=== PATIENT | male | born 1940 | race Caucasian/White ===

== ENCOUNTER 2020-04-16 13:52 | Outpatient (REF) | payer MEDICARE, SELFPAY ==
--- NOTE | 2020-04-16 | CT_ITS ---
EXAMINATION: CT RIGHT LOWER EXTREMITY CLINICAL INFORMATION: Pain right lower leg, swelling, question mass. COMPARISON: MRI 04/02/2020. TECHNIQUE: Axial imaging. Sagittal and coronal reconstructions. 85 mL Omnipaque 350. FINDINGS: Cystic focus in the posterior medial aspect of the knee, with internal septations. Hounsfield measurements 8. This measures approximately 4.4 cm craniocaudal, 3.4 cm AP, 2.3 cm transverse. There is peripheral enhancement present. This is present in the soft tissues along the medial aspect of the knee, including tracking along the pes anserine tendons. This is also visualized on the previous MRI. Differential considerations include bursitis. Infectious inflammatory processes can be considered in the appropriate clinical circumstance. There is a small Abraham's cyst. No definite communication between the Abraham's cyst and the above-mentioned cystic focus is identified. There is a complex focus in the subcutaneous tissues anterior to the distal patella and the proximal patellar tendon, measuring 3.8 cm craniocaudal, 3.6 cm transverse, 1.6 cm AP. Foci of increased attenuation in this region, could reflect calcifications, and potential areas of enhancement. Synovial recess along the posterior lateral aspect of the knee. No additional fluid collection or mass is identified. No acute osseous abnormality. Mild medial compartment arthritis. There is a small knee joint effusion, with some synovial thickening. IMPRESSION: 1. A 4.4 x 3.4 x 2.3 cm septated cystic focus in the posterior medial aspect of the knee, tracking along the pes anserine tendons. Differential considerations include bursitis; infectious inflammatory process can be considered in the appropriate clinical circumstance. 2. Complex focus in the anterior subcutaneous tissues, anterior to the distal patella and the proximal patellar tendon measuring 3.8 x 3.6 x 1.6 cm. This was also characterized on the previous MRI. Differential considerations include bursitis, hematoma, inflammatory or infectious process. 3. Small Abraham's cyst. 4. Additional findings and details as above.
[2020-04-16] MEDS: iohexoL 350 MG/ML 100 ML INFUS..BTL IV (15:17)
== END 2020-04-16 13:53 | disposition home or self-care (01) ==
LOC: HO.CT 13:52
PROVIDERS: PCP Internal Medicine; Visit Provider Physician Assistant Medical
DX: M25.561 Pain in right knee (principal); M25.461 Effusion, right knee
CPT/HCPCS: 73701

== ENCOUNTER → 2020-04-19 08:40 | Outpatient (BNVA) | payer MEDICARE, SELFPAY | PROVIDERS: PCP Internal Medicine; Visit Provider Orthopaedic Surgery | DX: M25.461 Effusion, right knee (principal) | CPT/HCPCS: 99211; 99213 ==

== ENCOUNTER → 2020-04-29 09:01 | Outpatient (BNVA) | payer MEDICARE, SELFPAY | PROVIDERS: PCP Internal Medicine; Referring Provider Internal Medicine; Visit Provider Orthopaedic Surgery | DX: M70.51 Other bursitis of knee, right knee (principal); M17.11 Unilateral primary osteoarthritis, right knee | CPT/HCPCS: 20610; 99214 ==

== ENCOUNTER → 2020-06-07 08:47 | Outpatient (BNVA) | payer MEDICARE, SELFPAY | PROVIDERS: Visit Provider Orthopaedic Surgery | DX: M75.51 Bursitis of right shoulder (principal); M17.11 Unilateral primary osteoarthritis, right knee; S83.241A Other tear of medial meniscus, current injury, right knee, initial encounter; M70.51 Other bursitis of knee, right knee | CPT/HCPCS: 20610; 99212; J1100 ==

== ENCOUNTER 2020-06-22 08:36 | Outpatient (REF) | payer MEDICARE, SELFPAY ==
[2020-06-22 14:24] LABS: Urine Cytology See Pathology rpt
== END 2020-06-22 08:37 | disposition home or self-care (01) ==
LOC: HO.LNP 08:36
PROVIDERS: Visit Provider Urology
DX: R31.29 Other microscopic hematuria (principal); N40.2 Nodular prostate without lower urinary tract symptoms; N32.0 Bladder-neck obstruction
CPT/HCPCS: 81002; 88112; 99212

== ENCOUNTER 2020-06-28 10:00 | Outpatient (RCR) | payer MEDICARE, SELFPAY ==
--- NOTE | 2020-05-07 08:35 | MHC.PT.EP ---
[facility] [place] [facility] [place] [facility] [place] [facility] [address] [phone] F: [phone] F: [phone] F: [phone] F: [phone] Physical Therapy Plan of Care Date of Evaluation: 05/06/20 Date of Surgery: N/A Diagnosis: R knee pain/bursitis Assessment: Patient is a 79 year old R handed male who presents with s/s consistent with R knee bursitis. He is retired but does enjoy being independent. Patient past medical history includes VT. Current impairments include pain, ROM, strength, safety, independence, balance, activity tolerance and functional mobility. Functional limitations include decreased ability to walk, stand, transfer, negotiate stairs, and perform weight bearing activities.. Patient is motivated with good rehab potential. Skilled PT will address impairments and functional limitations in order to achieve goals. Frequency and Duration: The patient will be seen 2x/week for 6 weeks Short Term Goals: I with HEP - 2 week AROM 5-120 - 3 weeks Able to walk 20 minutes without increased pain - 3 weeks [employer] Goals: Able to walk 30 minutes without increased pain - 5 weeks LEFS 56/80 - 6 weeks Strength 4/5 grossly in LE, AROM 2-126 - 6 weeks Treatment Plan: Modalities to reduce pain, spasms and effusion. Manual therapy to restore motion and function. Therapeutic exercise to improve strength and flexibility. Neuromuscular re-education for posture and balance. Therapeutic activities to return to functional activities of daily living. Please sign and return to therapist. Thank you for your referral.
--- NOTE | 2020-07-29 09:39 | MHC.PT.DC ---
[facility] [place] Office [place] Office [place] Office [address] Don Pichardo [address] [phone] F: [phone] F: [phone] F: [phone] F: [phone] Physical Therapy Discharge Report Diagnosis: R knee pain/bursitis Date of Surgery: N/A Date of Evaluation: 05/06/20 Date of Discharge: 07/29/20 Treatments to Date: 13 Cancellations to Date: No Shows to Date: Discharge Status: Independent with HEP Discharge Summary: Pt progressed well over the course of skilled PT making progress on impairments and functional limitations resulting in an improved quality of life. Pt is I with HEP and appropriate to d/c to HEP at this time. He will pursue PT for his L knee at this time. Electronically signed by: Wing Bell, PT Please sign and return to therapist. Thank you for your referral.
== END 2020-07-29 09:39 | disposition home or self-care (01) ==
LOC: HO.PTCHIC 10:00
PROVIDERS: PCP Internal Medicine; Visit Provider Orthopaedic Surgery
DX: M70.51 Other bursitis of knee, right knee (principal)
CPT/HCPCS: 97110; 97112; 97140; 97161

== ENCOUNTER → 2020-07-05 09:26 | Outpatient (BNVA) | payer MEDICARE, SELFPAY | PROVIDERS: PCP Internal Medicine; Visit Provider Orthopaedic Surgery | DX: Z76.89 Persons encountering health services in other specified circumstances (principal) | CPT/HCPCS: 20610; 99212; J1100 ==

== ENCOUNTER 2020-07-05 11:15 | Inpatient (IN) | payer MEDICARE, SELFPAY ==
[2020-07-05] VITALS (11 sets, daily range): BP systolic 108–141; BP diastolic 59–75; PULSE 70–95; RESP 18–20; TEMP 35.7–37.1; O2SAT 92–96; BMI 25.9
--- NOTE | 2020-07-05 11:34 | ECG_ITS ---
Test Reason : SYNCOPE Blood Pressure : / mmHG Vent. 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
--- NOTE | 2020-07-05 11:35 | XR_ITS ---
EXAMINATION: XR CHEST CLINICAL INFORMATION: Syncope COMPARISON: Chest radiographs 04/17/2018, 03/24/2018 TECHNIQUE: Portable upright AP view of the chest was obtained. FINDINGS: The lungs are clear. There is no airspace opacity or focal ground-glass opacity. The heart is normal in size. The vascularity is normal. The costophrenic sulci are clear. The hilar and mediastinal contours and bony structures are unremarkable. XR/XR chest 1V IMPRESSION: Unremarkable examination.
--- NOTE | 2020-07-05 11:36 | ED_ITS ---
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(s) Description of event: other (felt lightheaded and woozy, vision became dark and he had event while sitting in car, no trauma) Prodromal symptoms: vision changes and lightheaded Witnessed: Yes - by Bystander Context: at rest Injuries sustained associated with event: none Current symptoms: back to baseline History: previous syncopal episode Treatments prior to arrival: none Related Data Home Medications Medication Instructions Recorded Confirmed allopurinol 100 mg tablet 100 mg PO DAILY 04/12/20 07/05/20 atorvastatin 40 mg tablet 40 mg PO BEDTIME 04/12/20 07/05/20 carvedilol 6.25 mg tablet 6.25 mg PO BID 04/12/20 07/05/20 fluticasone 250 mcg-salmeterol 50 1 inh INHALATION BID 04/12/20 07/05/20 mcg/dose blistr powdr for inhalation sacubitril 49 mg-valsartan 51 mg 1 tab PO BID 04/12/20 07/05/20 tablet tamsulosin 0.4 mg capsule 0.4 mg PO BEDTIME 04/12/20 07/05/20 cetirizine 10 mg PO DAILY PRN 07/05/20 07/05/20 finasteride 5 mg PO BEDTIME 07/05/20 07/05/20 multivitamin 1 tab PO DAILY 07/05/20 07/05/20 Previous Rx's Medication Instructions Recorded celecoxib 200 mg capsule 200 mg PO DAILY 30 Days #30 cap 07/05/20 Allergies Allergy/AdvReac Type Severity Reaction Status Date / Time No Known Allergies Allergy Verified 06/07/20 10:55 [No Known Allergies*] Review of Systems Review of Systems: Constitutional : No Weight loss, No Fever, No Chills, No Fatigue, No Malaise ENT/Mouth : No sore throat, No Rhinorrhea Eyes: No Eye Pain, No Swelling, No Redness Cardiovascular : No Chest Pain, No SOB, No Dyspnea on Exertion, No Orthopnea, No Edema, No Palpitations Respiratory : No Cough, No Sputum, No Wheezing Gastrointestinal : No Nausea, No Vomiting, No Diarrhea, No Constipation, No abdominal Pain, No Hematochezia, No Melena Genitourinary : No Dysuria, No Urinary Frequency, No Hematuria, Musculoskeletal : pos joint pain, No Myalgias, pos Joint Swelling Skin : No Skin Lesions, No rash Neuro : No Weakness, No Numbness, No Dizziness, No Headache, pos fainting Psych : No Anxiety/Panic, No Depression Heme/Lymph: No Bruising, No Bleeding,No Lymphadenopathy Endocrine : No Polyuria, No Polydipsia All other systems reviewed and are negative COUNT INCLUDES THE [facility] Past Medical History Attestation statement: The following information was validated with the patient. Medical History Bursitis of right shoulder Effusion, left knee Effusion, right knee Medial meniscus tear Osteoarthritis of right knee Pes anserinus bursitis of right knee Surgical History History of carpal tunnel release History of cholecystectomy History of colonoscopy History of tonsillectomy Family History Family History Father No problems noted. Mother No problems noted. Son No problems noted. Social History Social History Alcohol intake: never Smoking Status: Never smoker Smoked in Last 30 Days: No Use of substances other than those prescribed or required for medical reasons: No Advance Directives: No Advance Directives Information Provided: No Current occupational status: retired 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 Physical Exam Vital Signs: Vital Signs: Last Vital Signs Temp 98.7 F 07/05/20 11:33 Pulse 77 07/05/20 11:33 Resp 18 07/05/20 11:33 BP 108/59 L 07/05/20 11:33 Pulse Ox 96 07/05/20 12:01 Body Mass Index 25.9 Appearance: Alert. Oriented X3. No acute distress. Eyes: Pupils equal, round and reactive to light. ENT: Pharynx normal. Neck: Normal inspection. Neck supple. CVS: Normal heart rate and rhythm. Pulses normal. Respiratory: No respiratory distress. Breath sounds normal. Abdomen: Soft and nontender. Skin: Skin warm and dry. Normal skin color. Normal skin turgor. Extremities: No lower extremity edema. No calf ttp L knee residual small effusion noted with bandage overlying lateral aspect Neuro: Oriented X 3. No motor deficit. No sensory deficit. Course Course Course Narrative: 500 cc of NS ordered, labs off, planned admit MDM - Syncope MDM Narrative Medical decision making narrative: 79 yo male with arthritis hx of recurrent bouts of hypotension without reported known cause that resolved after med changes - he currently comes in with c/o brief syncopal episode with a prodrome, recently not sleeping well due to L knee arthritis just had arthrocentesis with orthopedics, has no trauma from syncope, no CP/SOB to suggest PE or ACS, will need labs, ortho VS, EKG, likely admit for observation Lab Data Result diagrams: 07/05/20 11:52 07/05/20 11:52 Labs: Lab Results 07/05/20 07/05/20 07/05/20 Range/Units 11:52 11:52 11:52 WBC 10.0 (4.8-10.8) X10*3/uL RBC 4.05 L (4.60-5.80) X10*6/uL Hgb 12.0 L (14.0-18.0) g/dl Hct 35.9 L (42-52) % MCV 88.6 (80-98) fL MCH 29.6 (27.0-33.0) pg MCHC 33.4 (31.0-36.0) g/dl RDW 14.0 (11.0-16.0) % Plt Count 382 (160-400) X10*3/uL MPV 8.2 L (9.4-12.4) fL PT 13.0 (10.8-13.0) SEC INR 1.1 (0.9-1.1) APTT 33.4 (24.1-38.0) SEC Sodium 126 L (135-145) mmol/L Potassium 5.3 H (3.3-5.1) mmol/l Chloride 94 L (96-108) mmol/L Carbon Dioxide 26 (22-29) mmol/L Anion Gap 11 L (12-20) BUN 15 (9-16) mg/dL Creatinine 0.76 (0.5-1.4) mg/dL Estim Creat Clear Calc 71.1 Estimated GFR > 60 Random Glucose 176 H (60-115) mg/dL Calcium 8.5 (8.4-10.2) mg/dL COVID-19 ([facility]) (Negative) COVID-19 Clin Com 07/05/20 Range/Units 11:53 WBC (4.8-10.8) X10*3/uL RBC (4.60-5.80) X10*6/uL Hgb (14.0-18.0) g/dl Hct (42-52) % MCV (80-98) fL MCH (27.0-33.0) pg MCHC (31.0-36.0) g/dl RDW (11.0-16.0) % Plt Count (160-400) X10*3/uL MPV (9.4-12.4) fL PT (10.8-13.0) SEC INR (0.9-1.1) APTT (24.1-38.0) SEC Sodium (135-145) mmol/L Potassium (3.3-5.1) mmol/l Chloride (96-108) mmol/L Carbon Dioxide (22-29) mmol/L Anion Gap (12-20) BUN (9-16) mg/dL Creatinine (0.5-1.4) mg/dL Estim Creat Clear Calc Estimated GFR Random Glucose (60-115) mg/dL Calcium (8.4-10.2) mg/dL COVID-19 ([facility]) Negative (Negative) COVID-19 Clin Com See Note ECG Data Attestation: I personally reviewed and interpreted this ECG as follows: ECG interpretation date: 07/05/20 ECG interpretation time: 12:10 Interpretation: Rate: 76 Rhythm: NSR Kingsley: left Normal P waves. 1st degree AVB Normal QRS complex. poor R wave progression ST T wave : normal qTC: normal prior studies: no acute ischemia The study has been interpreted contemporaneously by me. . Discharge Plan Discharge Clinical Impression: Syncope, Acute hyponatremia Patient Disposition: Admitted As Inpatient Prescriptions: No Action multivitamin Tablet 1 tab PO DAILY RF: 0 cetirizine 10 mg Tablet 10 mg PO DAILY PRN (Reason: Allergic Symptoms) RF: 0 finasteride 5 mg tablet 5 mg PO BEDTIME RF: 0 fluticasone propion-salmeterol [Advair Diskus] 250-50 mcg/dose blister with device 1 inh inhalation BID RF: 0 Entresto 49-51 mg tablet 1 tab PO BID RF: 0 atorvastatin 40 mg tablet 40 mg PO BEDTIME RF: 0 allopurinol 100 mg tablet 100 mg PO DAILY RF: 0 carvedilol 6.25 mg tablet 6.25 mg PO BID RF: 0 tamsulosin 0.4 mg capsule 0.4 mg PO BEDTIME RF: 0 celecoxib [Celebrex] 200 mg capsule 200 mg PO DAILY 30 Days Qty: 30 RF: 0
[2020-07-05 12:01] LABS: Basophils Percent Auto 0.3 % (0-2); Eosinophils Percent Auto 0.4 % (0-4); Hematocrit 35.9 % (42-52); Imm Gran Abs Auto 0.05 X10*3/uL (0.00-0.03); Imm Gran Pct Auto 0.5 % (0.0-0.4); Lymphocytes Absolute Auto 0.6 X10*3/uL (1.2-4.9); Lymphocytes Percent Auto 6.3 % (20-40); MANUAL DIFF FLAG SCAN; Mean Corpuscular HGB Conc 33.4 g/dl (31.0-36.0); Mean Corpuscular Hemoglobin 29.6 pg (27.0-33.0); Mean Corpuscular Volume 88.6 fL (80-98); Mean Platelet Volume 8.2 fL (9.4-12.4); Monocytes Absolute Auto 0.6 X10*3/uL (0.1-1.2); Monocytes Percent Auto 5.5 % (2-11); Neutrophils Absolute Auto 8.7 X10*3/uL (2.0-8.3); Platelet Count 382 X10*3/uL (160-400); SCAN SMEAR FLAG 1
[2020-07-05 12:06] LABS: INTERNATIONAL NORM RATIO 1.1 (0.9-1.1)
[2020-07-05 12:09] LABS: Partial Thromboplastin Time 33.4 SEC (24.1-38.0)
[2020-07-05 12:17] LABS: COVID-19 Test Negative (Negative)
[2020-07-05 12:17] LABS: Red Blood Count 4.05 X10*6/uL (4.60-5.80)
[2020-07-05 12:22] LABS: Anion Gap 11 (12-20); Blood Urea Nitrogen 15 mg/dL (9-16); Calcium 8.5 mg/dL (8.4-10.2); Carbon Dioxide 26 mmol/L (22-29); Chloride 94 mmol/L (96-108); Creatinine Clr Calc Pharmacy 71.1; Estimated Glomerular Filt Rate > 60; Glucose Random 176 mg/dL (60-115); Potassium 5.3 mmol/l (3.3-5.1); Sodium 126 mmol/L (135-145)
[2020-07-05 12:28] LABS: SLIDE REVIEW VERIFIED
[2020-07-05 12:28] LABS: Troponin-I High Sensitivity < 3.5 ng/L (<3.5-35.0)
[2020-07-05] MEDS: 0.9 % Sodium Chloride 500 ML IV (12:31)
[2020-07-05 12:51] LABS: Alanine Aminotransferase 26 U/L (0-40); Albumin Level 3.3 g/dL (3.5-5.0); Alkaline Phosphatase 76 U/L (39-117); Aspartate Amino Transferase 20 U/L (5-37); Bilirubin Direct 0.3 mg/dL (0.0-0.5); Bilirubin Total 0.6 mg/dL (0.0-1.0); Lipase 19 U/L (8-78); Magnesium 2.1 mg/dL (1.6-2.6); Total Protein 6.3 g/dL (6.5-8.0)
[2020-07-05 16:01] LABS: Glucose Urine UA NEG (NEG); Leukocyte Esterase Urine NEG (NEG); Nitrite Urine NEG (NEG); PH 7.5 (5.0-8.0); Urine Blood TRACE (NEG); Urine Ketones NEG (NEG); Urine Protein NEG (NEG-TRACE)
[2020-07-05 16:03] LABS: Appearance Urine CLEAR; Color Urine YELLOW
[2020-07-05 16:07] LABS: Bacteria Urine TRACE /LPF; WBC Urine 0 /HPF (0-4)
--- NOTE | 2020-07-05 16:33 | PC.NURSE ---
[facility] called for attemp to give rn to rn awaiting call back
[2020-07-05 16:52] LABS: B Type Natriuretic Peptide 78 pg/mL (<100)
--- NOTE | 2020-07-05 17:08 | PC.NURSE ---
report to [facility], pct Franco transported patient on TELE
--- NOTE | 2020-07-05 17:17 | PM.EVENT ---
Event Note Date of Service: 07/05/20 Event Note: This is a 79 yo M who presented to the ED with what appears to be syncopal episode. Reports he was sitting in his car (parked, not driving) after having some coffee and he felt unwell as if he was going to pass out. He denied any chest pain, sob, palpitations prior to this. He denied feeling unwell last few days, although does endorse increasing pain in his L knee which had kept him up. In the ED, work up showing hyponatremia, negative orthostatics, EKG without any acute changes, negative HS trop-I. Clinically appears dry -- given 500 cc NS in the ED. Will monitor on tele. Check Echo / Carotids. Repeat chem and check urine studies. If any concerns, will invovle cardiology. From history -- episode sounds vasovagal in nature. Patient seen and examined. Case discussed with Natasha Allen NP. Agree with her history and physical.
[2020-07-05] MEDS: 0.9 % Sodium Chloride Flush 3 ML SYRINGE IVFLUSH (17:58)
[2020-07-05] MEDS: Heparin Sodium,Porcine 5,000 UNIT/ML VIAL 5000 UNIT SUBCUT (18:21)
[2020-07-05] MEDS: carvediloL 6.25 MG TABLET PO (21:34)
[2020-07-05] MEDS: Sacubitril/Valsartan 49/51 1 TAB TABLET PO (21:34)
[2020-07-05] MEDS: Finasteride 5 MG TABLET PO (21:35)
[2020-07-05] MEDS: Atorvastatin Calcium 40 MG TABLET PO (21:35)
[2020-07-05] MEDS: Tamsulosin HCL 0.4 MG CAPSULE PO (21:35)
[2020-07-05 22:18] LABS: Osmolality Urine 538 mosm/kg (373-1093)
[2020-07-06] MEDS: 0.9 % Sodium Chloride Flush 3 ML SYRINGE IVFLUSH (00:22)
[2020-07-06 04:00] VITALS: BP 136/65; PULSE 95; RESP 20; TEMP 36.6; O2SAT 95
[2020-07-06 06:18] LABS: MANUAL DIFF FLAG NO
[2020-07-06 06:49] LABS: Basophils Percent Auto 0.1 % (0-2); Hematocrit 32.7 % (42-52); Hemoglobin 11.1 g/dl (14.0-18.0); Imm Gran Abs Auto 0.05 X10*3/uL (0.00-0.03); Imm Gran Pct Auto 0.5 % (0.0-0.4); Lymphocytes Percent Auto 9.9 % (20-40); Mean Corpuscular HGB Conc 33.9 g/dl (31.0-36.0); Mean Corpuscular Hemoglobin 29.7 pg (27.0-33.0); Mean Corpuscular Volume 87.4 fL (80-98); Mean Platelet Volume 8.7 fL (9.4-12.4); Monocytes Absolute Auto 0.9 X10*3/uL (0.1-1.2); Monocytes Percent Auto 8.3 % (2-11); Neutrophils Absolute Auto 8.3 X10*3/uL (2.0-8.3); Neutrophils Percent Auto 81.2 % (45-73); Platelet Count 422 X10*3/uL (160-400); Red Blood Count 3.74 X10*6/uL (4.60-5.80); Red Cell Distribution Width 13.7 % (11.0-16.0); White Blood Count 10.3 X10*3/uL (4.8-10.8)
[2020-07-06 07:03] LABS: Anion Gap 12 (12-20); Blood Urea Nitrogen 15 mg/dL (9-16); Calcium 8.1 mg/dL (8.4-10.2); Carbon Dioxide 25 mmol/L (22-29); Chloride 97 mmol/L (96-108); Creatinine Clr Calc Pharmacy 78.3; Estimated Glomerular Filt Rate > 60; Glucose Random 215 mg/dL (60-115); Potassium 4.8 mmol/l (3.3-5.1); Sodium 129 mmol/L (135-145)
[2020-07-06 08:00] VITALS: BP 140/63; BP 142/70; BP 144/67; PULSE 88; PULSE 92; RESP 18; TEMP 36.2; O2SAT 98
--- NOTE | 2020-07-06 08:00 | US_ITS ---
EXAMINATION: US EXTRACRANIAL CAROTID DUPLEX, BILATERAL CLINICAL INFORMATION: Syncope. COMPARISON: None TECHNIQUE: Real-time ultrasound and Doppler techniques (integrating B-mode 2-D vascular images, Doppler spectral analysis and color-flow Doppler imaging) were utilized to interrogate the extracranial carotid arteries, the vertebral arteries and proximal subclavian arteries bilaterally. The degree of stenosis is determined by criteria similar to NASCET. FINDINGS: RIGHT SIDE: 1. There is hard atherosclerotic plaque seen in the bifurcation/proximal ICA region. 2. The common carotid artery PSV proximally is 113 cm/s and distally 79.9 cm/s. 3. The proximal internal carotid artery velocities are 95.1 cm/s systolic and 26.1 cm/s diastolic. 4. The proximal external carotid artery PSV is 75.8 cm/s. 5. The vertebral artery shows antegrade flow. 6. The subclavian artery waveforms are normal. LEFT SIDE: 1. There is hard atherosclerotic plaque seen in the bifurcation/proximal ICA region. 2. The common carotid artery PSV proximally is 129 cm/s and distally 84.5 cm/s. 3. The proximal internal carotid artery velocities are 79.6 cm/s systolic and 20.6 cm/s diastolic. 4. The proximal external carotid artery PSV is 106 cm/s. 5. The vertebral artery shows antegrade flow. 6. The subclavian artery waveforms are normal. US/US carotid duplex BI IMPRESSION: 1. RIGHT: No hemodynamically significant stenosis in right carotid artery. 2. LEFT: No hemodynamically significant stenosis in left carotid artery. 3. Normal antegrade flow seen in both vertebral arteries.
[2020-07-06] MEDS: Celecoxib 200 MG CAPSULE PO (10:20)
[2020-07-06] MEDS: Multivitamin TABLET 1 TAB PO (10:21)
[2020-07-06] MEDS: allopurinoL 100 MG TABLET PO (10:21)
[2020-07-06] MEDS: Sacubitril/Valsartan 49/51 1 TAB TABLET PO (10:21)
[2020-07-06] MEDS: carvediloL 6.25 MG TABLET PO (10:22)
--- NOTE | 2020-07-06 11:27 | MHC.CM.PN ---
CM met with patient at the bedside who reports he is independent and lives with his . Patient is a , pamphlets given. Patient states his is HCP Adrianne [phone], copy requested. Discussed discharge plan, home no services. will provide transport. IMM addressed. CM will continue to follow for discharge needs.
[2020-07-06 11:30] VITALS: BP 155/68; PULSE 81; RESP 18; TEMP 36.6; O2SAT 96
--- NOTE | 2020-07-06 12:37 | HP_ITS ---
DATE OF SERVICE: 07/05/2020 CHIEF COMPLAINT: Syncope. HISTORY OF PRESENT ILLNESS: A 79-year-old man presenting to the ER after an episode of syncope while he was sitting down. Apparently, he was sitting in his parked car. After having some coffee, he felt unwell and suddenly passed out. Prior to that, he denied any headache, visual changes, chest pain, shortness of breath, palpitations, dizziness, or lightheadedness. He reported that he had been in his usual state of health, and actually, today had his knees drained by his orthopedist. He denies any history of syncope in the past in the ER. His labs were within acceptable limits, although his sodium was mildly low at 126 and potassium was 5.3. His urinalysis was negative for infection. COVID-19 PCR was negative. Chest x-ray was negative for any consolidation or effusion. His vital signs are stable and he was not noted to be hypotensive or febrile. He was given some fluids in the ER. He will be admitted for further management and treatment of acute syncope. PAST MEDICAL HISTORY: 1. Coronary artery disease, status post myocardial infarction. 2. COPD. 3. Hyperlipidemia. 4. Hypertension. 5. History of C diff. 6. Cholecystectomy. 7. Tonsillectomy. SOCIAL HISTORY: Quit smoking more than 27 years ago. Drinks alcohol socially. Denies illicit drug use. He is retired. FAMILY HISTORY: CVA in his father at the age of 65. Mother of natural causes at the age of 78. ALLERGIES: NO KNOWN ALLERGIES. MEDICATIONS: 1. Allopurinol 100 mg p.o. daily. 2. Atorvastatin 40 mg p.o. at bedtime. 3. Carvedilol 6.25 mg p.o. b.i.d. 4. Celebrex 200 mg p.o. daily. 5. Cetirizine 10 mg p.o. daily as needed. 6. Finasteride 5 mg p.o. at bedtime. 7. Fluticasone 250 mcg. 8. Multivitamin 1 tab p.o. daily. 9. Entresto 51 mg tablets 1 tab p.o. b.i.d. 10. Tamsulosin 0.4 mg p.o. at bedtime. REVIEW OF SYSTEMS: CONSTITUTIONAL: Denies any recent fever, chills, or decrease in appetite. RESPIRATORY: Denies any shortness of breath, cough, or sputum production. CARDIOVASCULAR: Denies any chest pain, orthopnea, PND, or edema. GASTROINTESTINAL: Denies any dysphagia, abdominal pain, nausea, vomiting, or diarrhea. GENITOURINARY: Denies any dysuria, frequency, hematuria. MUSCULOSKELETAL: Denies joint pain or swelling. NEUROPSYCH: Denies any weakness or seizures. All other systems are reviewed and are negative. PHYSICAL EXAMINATION: CONSTITUTIONAL: Resting in bed. No acute distress. VITAL SIGNS: 141/66, 82, 19, 96.2, 96% on room air. SKIN: Intact without rashes or open sores. HEENT: Head is normocephalic, atraumatic. Eyes, pupils are PERRLA. Sclerae anicteric. Mouth and throat: Mucous membranes are intact and moist. NECK: Supple. No lymphadenopathy. No JVD noted. CHEST: Clear to auscultation without wheezes, rhonchi, or rales. HEART: Regular rate and rhythm. Clear S1, S2. No murmurs, rubs, or gallops. ABDOMEN: Positive bowel sounds. Soft, nontender. No hepatomegaly or splenomegaly noted. NEURO: The patient is alert and oriented x3. Cranial nerves II through XII are grossly intact without focal deficits. LABORATORY DATA: WBC 10.0, hemoglobin 12.0, hematocrit 35.9, platelets 382. Sodium is 126, potassium is 5.3, chloride is 94, BUN is 15, creatinine 0.76, glucose 176. Troponin is less than 3.5. BNP is 78. Urinalysis negative for infection. COVID negative. ASSESSMENT AND PLAN: A 79-year-old man admitted with syncope and abnormal labs. Syncope sounds more vasovagal, maybe from abdominal pain after drinking coffee. Does not seem to be related to his effusion drainage today and less likely cardiac in nature. 1. Syncope. We will monitor on telemetry. We will obtain echocardiogram and bilateral carotid Doppler ultrasound. Orthostatic blood pressures. 2. Hyponatremia. Unknown etiology at this time. We will check urine studies and follow BMP closely. Denies drinking excess water or alcohol. 3. Hyperkalemia, mild. We will follow closely, want to recheck BMP in the morning. 4. Hyperlipidemia. Continue statin. 5. History of heart failure. Continue beta amber, Entresto. 6. Deep vein thrombosis prophylaxis with heparin. 7. Case discussed with Dr. Borrego. 8. Full code. AYUSH Dugan MD JR/DADA / [id number]
--- NOTE | 2020-07-06 14:46 | P.DS_ITS ---
DS: Providers Provider Date of admission: 07/05/20 14:41 Primary care physician: Anthony Whittaker MD DS: Diagnosis Discharge Diagnosis (1) Syncope: Status: Acute (2) Acute hyponatremia: Status: Acute DS: Medications Discharge Medications Home Medications: Home Medications Medication Instructions Recorded Confirmed allopurinol 100 mg tablet 100 mg PO DAILY 04/12/20 07/05/20 atorvastatin 40 mg tablet 40 mg PO BEDTIME 04/12/20 07/05/20 carvedilol 6.25 mg tablet 6.25 mg PO BID 04/12/20 07/05/20 fluticasone 250 mcg-salmeterol 50 1 inh INHALATION BID 04/12/20 07/05/20 mcg/dose blistr powdr for inhalation sacubitril 49 mg-valsartan 51 mg 1 tab PO BID 04/12/20 07/05/20 tablet tamsulosin 0.4 mg capsule 0.4 mg PO BEDTIME 04/12/20 07/05/20 cetirizine 10 mg PO DAILY PRN 07/05/20 07/05/20 finasteride 5 mg PO BEDTIME 07/05/20 07/05/20 multivitamin 1 tab PO DAILY 07/05/20 07/05/20 Previous Rx's Medication Instructions Recorded celecoxib 200 mg capsule 200 mg PO DAILY 30 Days #30 cap 07/05/20 DS: Summary Hospital Course Hospital Course: Admission note HPI A 79-year-old man presenting to the ER after an episode of syncope while he was sitting down. Apparently, he was sitting in his parked car. After having some coffee, he felt unwell and suddenly passed out. Prior to that, he denied any headache, visual changes, chest pain, shortness of breath, palpitations, dizziness, or lightheadedness. He reported that he had been in his usual state of health, and actually, today had his knees drained by his orthopedist. He denies any history of syncope in the past in the ER. His labs were within acceptable limits, although his sodium was mildly low at 126 and potassium was 5.3. His urinalysis was negative for infection. COVID-19 PCR was negative. Chest x-ray was negative for any consolidation or effusion. His vital signs are stable and he was not noted to be hypotensive or febrile. He was given some fluids in the ER. He will be admitted for further management and treatment of acute syncope. Hospital course The patient was admitted to hospital for observation. EKG, troponin and telemetry were all within normal with no abnormal arrhythmias noted. Blood work remained stable with no changes in hemoglobin or electrolytes. The patient remained stable during the hospital stay with no reported syncope or near syncopal episodes. Echo showed global changes with wall motion abnormality likely related to his ischemic heart disease. Carotid Doppler ultrasound was negative for any obstruction or narrowing bilaterally. The patient was able to ambulate freely on room with no reported episodes. His presentation seems to be secondary to vasovagal attack after receiving a shot in his knee. He was noted to have hyponatremia at time of presentation which was mild around 129 improved to 132 during the hospital stay. Believed to be secondary to medi cations and decrease salt intake. He had he was recommended to use old with moderation and to continue current medications. To repeat blood test next week to check for sodium level. To follow with PCP. Time Spent with Patient Time attestation: Total time spent providing and/or coordinating discharge services: Physical Exam Vital Signs: Vital Signs: Last Vital Signs Temp 97.8 F 07/06/20 11:30 Pulse 81 07/06/20 11:30 Resp 18 07/06/20 11:30 BP 155/68 H 07/06/20 11:30 Pulse Ox 96 07/06/20 11:30 Body Mass Index 25.9 Constitutional : Alert, oriented, not in distress Neck : Normal inspection, Supple Cardiovascular : RRR, S1 S2, no lower extremity edema Respiratory : Good bilateral air entry, no crackles, wheezes or rhonchi Gastrointestinal: soft, lax, Normal bowel sounds, Non tender Skin : Warm/Dry, No rash Neurological : Alert & oriented x3, No focal deficit DS: Data Data Completed and Pending Labs on day of discharge: 07/05/20 Osmolality Urine Stat 07/05/20 11:34 ECG 12 lead EKG Stat EKG Documentation DIRECTED 07/05/20 11:35 XR chest 1V Stat 07/05/20 11:52 Basic Metabolic Panel Stat Complete Blood Count Auto Diff Stat Lipase Stat Liver Panel Stat Magnesium Stat Partial Thromboplastin Time Stat Prothrombin Time INR Stat SLIDE REVIEW Stat 07/05/20 11:53 COVID-19 ID NOW (Wolff) Stat Troponin-I High Sensitivity Stat 07/05/20 12:30 0.9 % Sodium Chloride [Ns] 500 ml IV 500 mls/hr 07/05/20 13:40 Transfer Order Routine 07/05/20 16:12 BNP [B Type Natriuretic Peptide] Stat 07/06/20 05:30 Basic Metabolic Panel DAILY@0600 Complete Blood Count Auto Diff DAILY@0600 07/06/20 08:00 US carotid duplex BI Urgent 07/06/20 08:36 Perflutren Lipid Microspheres [Definity] 2.2 mg IVPUSH .STK-MED ONE 07/06/20 17:01 CA echo transthorac w con Routine Laboratory Last Values WBC 10.3 X10*3/uL (4.8-10.8) 07/06/20 05:30 RBC 3.74 X10*6/uL (4.60-5.80) L 07/06/20 05:30 Hgb 11.1 g/dl (14.0-18.0) L 07/06/20 05:30 Hct 32.7 % (42-52) L 07/06/20 05:30 MCV 87.4 fL (80-98) 07/06/20 05:30 MCH 29.7 pg (27.0-33.0) 07/06/20 05:30 MCHC 33.9 g/dl (31.0-36.0) 07/06/20 05:30 RDW 13.7 % (11.0-16.0) 07/06/20 05:30 Plt Count 422 X10*3/uL (160-400) H 07/06/20 05:30 MPV 8.7 fL (9.4-12.4) L 07/06/20 05:30 Immature Gran % (Auto) 0.5 % (0.0-0.4) H 07/06/20 05:30 Neut % (Auto) 81.2 % (45-73) H 07/06/20 05:30 Lymph % (Auto) 9.9 % (20-40) L 07/06/20 05:30 Robeson % (Auto) 8.3 % (2-11) 07/06/20 05:30 Eos % (Auto) 0.0 % (0-4) 07/06/20 05:30 Baso % (Auto) 0.1 % (0-2) 07/06/20 05:30 Lymph # (Auto) 1.0 X10*3/uL (1.2-4.9) L 07/06/20 05:30 Robeson # (Auto) 0.9 X10*3/uL (0.1-1.2) 07/06/20 05:30 Eos # (Auto) 0.0 X10*3/uL (0.0-0.4) 07/06/20 05:30 Baso # (Auto) 0.0 X10*3/uL (0.0-0.2) 07/06/20 05:30 Abs Immat Gran (auto) 0.05 X10*3/uL (0.00-0.03) H 07/06/20 05:30 Absolute Neuts (auto) 8.3 X10*3/uL (2.0-8.3) 07/06/20 05:30 Absolute Nucleated RBC 0.000 X10*3/uL (0.0-0.012) 07/06/20 05:30 Nucleated RBC % (auto) 0.0 /100WBC (0.0-0.2) 07/06/20 05:30 Smear Tech's Comments VERIFIED 07/05/20 11:52 PT 13.0 SEC (10.8-13.0) 07/05/20 11:52 INR 1.1 (0.9-1.1) 07/05/20 11:52 APTT 33.4 SEC (24.1-38.0) 07/05/20 11:52 Sodium 129 mmol/L (135-145) L 07/06/20 05:30 Potassium 4.8 mmol/l (3.3-5.1) 07/06/20 05:30 Chloride 97 mmol/L (96-108) 07/06/20 05:30 Carbon Dioxide 25 mmol/L (22-29) 07/06/20 05:30 Anion Gap 12 (-) 07/06/20 05:30 BUN 15 mg/dL (9-16) 07/06/20 05:30 Creatinine 0.69 mg/dL (0.5-1.4) 07/06/20 05:30 Estim Creat Clear Calc 78.3 07/06/20 05:30 Estimated GFR > 60 07/06/20 05:30 Random Glucose 215 mg/dL (60-115) H 07/06/20 05:30 Calcium 8.1 mg/dL (8.4-10.2) L 07/06/20 05:30 Magnesium 2.1 mg/dL (1.6-2.6) 07/05/20 11:52 Total Bilirubin 0.6 mg/dL (0.0-1.0) 07/05/20 11:52 Direct Bilirubin 0.3 mg/dL (0.0-0.5) 07/05/20 11:52 AST 20 U/L (5-37) 07/05/20 11:52 ALT 26 U/L (0-40) 07/05/20 11:52 Alkaline Phosphatase 76 U/L (39-117) 07/05/20 11:52 Troponin I High Sens < 3.5 ng/L (<3.5-35.0) 07/05/20 11:53 B-Natriuretic Peptide 78 pg/mL (<100) 07/05/20 16:12 Total Protein 6.3 g/dL (6.5-8.0) L 07/05/20 11:52 Albumin 3.3 g/dL (3.5-5.0) L 07/05/20 11:52 Lipase 19 U/L (8-78) 07/05/20 11:52 Urine Color Cancelled 07/05/20 Unknown Urine Appearance Cancelled 07/05/20 Unknown Urine pH Cancelled 07/05/20 Unknown Ur Specific [place] Cancelled 07/05/20 Unknown Urine Protein Cancelled 07/05/20 Unknown Urine Glucose (UA) Cancelled 07/05/20 Unknown Urine Ketones Cancelled 07/05/20 Unknown Urine Blood Cancelled 07/05/20 Unknown Urine Nitrite Cancelled 07/05/20 Unknown Ur Leukocyte Esterase Cancelled 07/05/20 Unknown Urine RBC 1-4 /HPF (0) 07/05/20 15:49 Urine WBC 0 /HPF (0-4) 07/05/20 15:49 Ur Squamous Epith Cells NONE /LPF 07/05/20 15:49 Urine Bacteria TRACE /LPF 07/05/20 15:49 Urine Osmolality 538 mosm/kg (373-1093) 07/05/20 Unknown COVID-19 (STEWART) Negative (Negative) 07/05/20 11:53 COVID-19 Clin Com See Note 07/05/20 11:53 Discharge Plan Discharge Patient Disposition: Home, Self-Care Referrals: Anthony Whittaker MD [Primary Care Provider] - Discharge Medications: Continued multivitamin Tablet 1 tab PO DAILY RF: 0 cetirizine 10 mg Tablet 10 mg PO DAILY PRN (Reason: Allergic Symptoms) RF: 0 finasteride 5 mg tablet 5 mg PO BEDTIME RF: 0 fluticasone propion-salmeterol [Advair Diskus] 250-50 mcg/dose blister with device 1 inh inhalation BID RF: 0 Entresto 49-51 mg tablet 1 tab PO BID RF: 0 atorvastatin 40 mg tablet 40 mg PO BEDTIME RF: 0 allopurinol 100 mg tablet 100 mg PO DAILY RF: 0 carvedilol 6.25 mg tablet 6.25 mg PO BID RF: 0 tamsulosin 0.4 mg capsule 0.4 mg PO BEDTIME RF: 0 celecoxib [Celebrex] 200 mg capsule 200 mg PO DAILY 30 Days Qty: 30 RF: 0 Discharge Orders: Discharge Order (Routine); Ordered 07/06/20 Ordered By: Evelia Delgado Diet: advance to usual diet Activity on Discharge: As tolerated Other Ambulatory Orders: Basic Metabolic Panel (Routine) Timeframe: 1 Week Facility: [facility] - Location: Laboratory Ordered By: Evelia Delgado Visit Report Forms: Patient Portal Discharge page Care Plan Goals: Read below Health Concerns: Read below Plan of Treatment: To the hospital for evaluation of an episode of near-syncope. Your heart enzymes, monitor and the were all within normal with no abnormalities noted. You had an echo done which showed an evidence of previous ischemic heart problem but no acute findings. Ultrasound of your carotid arteries did not show any obstruction or narrowing. The episodes seem to be a result of vasovagal attack. You were also noticed to low sodium level which is likely result of medications and decrease salt intake. We advise you to use salt with moderation. Continue home medications at time of discharge Will repeat blood test in 1 week and follow results with PCP
--- NOTE | 2020-07-06 14:52 | MHC.CM.PN ---
patient will be discharged home today no services. Adrianne [phone] will provide transport.
--- NOTE | 2020-07-06 17:01 | CA_ITS ---
Transthoracic Echocardiogram Patient (Last, First, Middle): Deacon Keyes C Gender: Male Date of : 1940 Age: 79 Procedure Date: 07/06/2020 Procedure Type: Transthoracic Echocardiogram Location: [facility] [place] Height: 167.64 cm Weight: 73.03 kg BSA: 1.82 m2 Heart Rate: bpm BP: 136 / 65 mmHg Condominium Property Manager: MARCELLO Referring MD: Natasha Allen NP Sand Tester: Justo Pool MD Symptoms: SYNCOPE Study Quality: Fair ECG Rhythm: Sinus Conclusions: - 1. [id number] LV systolic dysfunction with impaired relaxation filling pattern with multiple regional wall motion abnormality 2. Mildly dilated left atrium 3. Mild aortic regurgitation 4. Normal RV systolic pressure 5. No pericardial effusion Findings Procedure Information Contrast agent, definity, is being given per protocol without apparent complications. Left Ventricle Normal left ventricular cavity size. There is normal left ventricular wall thickness. The left ventricular systolic function is mild to moderately decreased. The visually estimated ejection fraction is between 40-45%. There is evidence of regional wall motion abnormalities. Spectral Doppler is indicative of an impaired relaxation filling pattern. E/E prime ratio is between 8 and 15 consistent with indeterminate filling pressures. There is mild septal asymmetric hypertrophy. Wall Motion Rest Echo Findings The apical lateral and mid anteroseptal segments are hypokinetic. The apex, apical anterior, apical inferior, and apical septum segments are akinetic. All other scored wall segments showed normal motion. Right Ventricle Normal right ventricular cavity size and systolic function. Atria The left atrium is mildly dilated. Interatrial shunt cannot be excluded. The right atrium is normal in size. Aortic Valve There is mild calcification of the aortic valve. There is mild thickening of the aortic valve. There is no aortic valve stenosis. There is mild aortic valve regurgitation. Mitral Valve There is mild anterior and posterior mitral leaflet thickening. There is mild mitral annular calcification. There is trace mitral valve regurgitation. There is no mitral valve stenosis. Pulmonic Valve The pulmonic valve was not well visualized. Tricuspid Valve Likely normal tricuspid valve structure and function. There is mild tricuspid valve regurgitation. The right ventricular systolic pressure is normal. The right ventricular systolic pressure is 17 mmHg. Normal right atrial pressure. There is no evidence of pulmonary hypertension. Great Vessels All visible segments of the aorta are normal in size. The pulmonary artery was not well visualized. Venous The inferior vena cava is normal in size and collapses greater than 50% with inspiration. Pericardium/Pleural There is no evidence of pericardial effusion. Prior Study Comparison Changes noted compared to prior study dated: 03/26/2018. LV systolic function has improved. Measurements 2D Linear Measurements IVSd: 1.22 0.6-0.9/0.6-1.0 cm LVIDd: 4.73 3.9-5.3/4.2-5.9 cm LVIDd Index: 2.60 2.4-3.2/2.2-3.1 cm/m2 LVIDs: 3.31 2.0-3.6 cm LVPWd: 0.91 0.7-1.1 cm Ao Root: 3.20 2.1-3.5 cm LA Diam: 4.40 2.7-3.8/3.0-4.0 cm LAIDs Index: 2.42 1.5-2.3 cm/m2 LV Mass: 226.13 67-162/88-224 g LV Mass Index: 124.25 43-95/49-115 g/m2 LVOT Diam: 2.10 3.0+(-)1.3 cm 2D Systolic Function EF 4C: 57.20 >55% EF 2C: 36.60 >55% Mitral Valve MV Pk E: 0.67 MV PK A: 1.06 MV Decel Time: 92.00 E/A: 0.60 E'Lateral: 4.25 E'Medial: 5.03 E/E' Med: 13.30 E/E' Lat: 15.70 PHT: 27.00 MVA PHT: 8.15 Decel Parmer: 7.31 Aortic Valve AoV Pk Ashu: 1.45 AoV Pk Grad: 8.00 LVOT LVOT Pk Ashu: 1.01 LVOT Mn Ashu: 0.73 LVOT VTI: 0.24 LVOT Pk Grad: 4.00 LVOT Mn Grad: 2.00 LVOT Diam: 2.10 LVOT Area: 3.46 Diastolic Function MV Pk E: 0.67 MV Pk A: 1.06 E/A: 0.60 E'Medial: 5.03 E/E' Med: 13.30 E' Laterial: 4.25 E/E' Lat: 15.70 Tricuspid Valve TR Pk Ashu: 1.86 TR Pk Grad: 14.00 RA Press: 3.00 RVSP: 17.00 Great Vessels Aorta Ao Root-2D: 3.20 2.0-3.7 cm Ao Asc: 3.60 2.1-3.4 cm Updated in Other Vendor System with Status of Final Justo Pool MD electronically signed on 07/06/2020 11:08:14 AM with status of Final
== END 2020-07-06 15:42 | disposition home or self-care (01) | DRG 312 ==
LOC: HO.ED 12:28 → HO.IMC 16:23
PROVIDERS: Nurse Practitioner Acute Care; Admitting Provider Family Medicine; Emergency Provider Emergency Medicine; PCP Internal Medicine; Visit Provider Student in an Organized Health Care Education/Training Program
DX: R55 Syncope and collapse (principal); E87.1 Hypo-osmolality and hyponatremia; E87.5 Hyperkalemia; I25.10 Atherosclerotic heart disease of native coronary artery without angina pectoris; I25.2 Old myocardial infarction; Z20.828 Contact with and (suspected) exposure to other viral communicable diseases; Z79.51 Long term (current) use of inhaled steroids; Z79.899 Other long term (current) drug therapy
CPT/HCPCS: 20610; 36415; 71045; 80048; 80076; 81001; 81003; 83690; 83735; 83880; 83935; 84484; 85025; 85610; 85730; 87635; 93005; 93306; 93880; 96360; 99212; 99285; J1100; Q9957

== ENCOUNTER 2020-07-13 08:53 | Outpatient (REF) | payer MEDICARE, SELFPAY | END 2020-07-13 08:54 | disposition home or self-care (01) | LOC: HO.LAB 08:53 | PROVIDERS: PCP Internal Medicine; Visit Provider Internal Medicine | DX: Z20.828 Contact with and (suspected) exposure to other viral communicable diseases (principal) | CPT/HCPCS: C9803; U0003 ==

== ENCOUNTER → 2020-07-26 11:15 | Outpatient (BNVA) | payer MEDICARE, OTHER, SELFPAY | PROVIDERS: PCP Internal Medicine; Visit Provider Orthopaedic Surgery | DX: M25.462 Effusion, left knee (principal) | CPT/HCPCS: 99212 ==

== ENCOUNTER → 2020-08-18 09:08 | Outpatient (BNVA) | payer MEDICARE, OTHER, SELFPAY | PROVIDERS: PCP Internal Medicine; Visit Provider Hospitalist | DX: J41.0 Simple chronic bronchitis (principal); R91.8 Other nonspecific abnormal finding of lung field | CPT/HCPCS: 99212 ==

== ENCOUNTER 2020-09-15 13:19 | Outpatient (REF) | payer MEDICARE, OTHER, SELFPAY ==
--- NOTE | ~2020-09-15 | XR_ITS ---
EXAMINATION: BILATERAL SHOULDER X-RAY CLINICAL INFORMATION: Pain COMPARISON: None TECHNIQUE: 4 views each shoulder FINDINGS: Right: Bone alignment is normal. No fracture or dislocation is seen. There is arthritis at the glenohumeral and acromioclavicular joints. Soft tissues are unremarkable. Left: Bone alignment is normal. No fracture or dislocation is seen. There is arthritis at the glenohumeral and acromioclavicular joints. Soft tissues are unremarkable. XR/XR shoulder LT min 2V IMPRESSION: Bilateral arthritis, right greater than left.
--- NOTE | ~2020-09-15 | XR_ITS ---
EXAMINATION: BILATERAL SHOULDER X-RAY CLINICAL INFORMATION: Pain COMPARISON: None TECHNIQUE: 4 views each shoulder FINDINGS: Right: Bone alignment is normal. No fracture or dislocation is seen. There is arthritis at the glenohumeral and acromioclavicular joints. Soft tissues are unremarkable. Left: Bone alignment is normal. No fracture or dislocation is seen. There is arthritis at the glenohumeral and acromioclavicular joints. Soft tissues are unremarkable. XR/XR shoulder RT min 2V IMPRESSION: Bilateral arthritis, right greater than left.
[2020-09-15 15:30] LABS: MANUAL DIFF FLAG NO
[2020-09-15 15:39] LABS: Basophils Percent Auto 0.5 % (0-2); Eosinophils Absolute Auto 0.5 X10*3/uL (0.0-0.4); Eosinophils Percent Auto 5.7 % (0-4); Hematocrit 34.6 % (42-52); Hemoglobin 11.4 g/dl (14.0-18.0); Imm Gran Abs Auto 0.02 X10*3/uL (0.00-0.03); Imm Gran Pct Auto 0.3 % (0.0-0.4); Lymphocytes Absolute Auto 1.2 X10*3/uL (1.2-4.9); Lymphocytes Percent Auto 14.5 % (20-40); Mean Corpuscular HGB Conc 32.9 g/dl (31.0-36.0); Mean Corpuscular Hemoglobin 28.5 pg (27.0-33.0); Mean Corpuscular Volume 86.5 fL (80-98); Mean Platelet Volume 8.7 fL (9.4-12.4); Monocytes Absolute Auto 0.9 X10*3/uL (0.1-1.2); Monocytes Percent Auto 10.7 % (2-11); Neutrophils Absolute Auto 5.4 X10*3/uL (2.0-8.3); Neutrophils Percent Auto 68.3 % (45-73); Platelet Count 358 X10*3/uL (160-400); Red Cell Distribution Width 15.8 % (11.0-16.0); White Blood Count 7.9 X10*3/uL (4.8-10.8)
[2020-09-15 15:58] LABS: Alanine Aminotransferase 16 U/L (0-40); Albumin Level 3.6 g/dL (3.5-5.0); Alkaline Phosphatase 82 U/L (39-117); Anion Gap 11 (12-20); Aspartate Amino Transferase 16 U/L (5-37); Bilirubin Total 0.6 mg/dL (0.0-1.0); Blood Urea Nitrogen 14 mg/dL (9-16); Calcium 8.6 mg/dL (8.4-10.2); Carbon Dioxide 28 mmol/L (22-29); Chloride 92 mmol/L (96-108); Estimated Glomerular Filt Rate > 60; Glucose Random 121 mg/dL (60-115); Potassium 4.9 mmol/L (3.3-5.1); Rheumatoid Factor < 15.0 IU/mL (<15.0); Sodium 126 mmol/L (135-145); Total Protein 6.6 g/dL (6.5-8.0)
[2020-09-15 16:31] LABS: Erythrocyte Sedimentation Rate 53 MM/HR (0-15)
[2020-09-17 01:36] LABS: Cyclic Citrullinated Peptide 27 UNITS
== END 2020-09-15 13:20 | disposition home or self-care (01) ==
LOC: HO.LAB 13:19
PROVIDERS: PCP Internal Medicine; Visit Provider Student in an Organized Health Care Education/Training Program
DX: M75.52 Bursitis of left shoulder (principal); M75.51 Bursitis of right shoulder; M25.561 Pain in right knee; M25.562 Pain in left knee
CPT/HCPCS: 20610; 36415; 73030; 80053; 85025; 85652; 86140; 86200; 86431; 99202

== ENCOUNTER 2020-09-22 08:01 | Outpatient (REF) | payer MEDICARE, OTHER, SELFPAY ==
--- NOTE | ~2020-09-22 | MM_ITS ---
EXAMINATION: BONE DENSITOMETRY CLINICAL INDICATION: Long-term (current) use of systemic steroids. Male, age 79. COMPARISON: None (current study represents initial baseline exam). TECHNIQUE: Using a [employer] DXA System (software version: 13.1) manufactured by [employer], dual-energy x-ray absorptiometry was performed of the lumbar spine and left hip. The images are of good technical quality. Summary results are attached. FINDINGS: AP SPINE L1-L2 (excluding L3 and L4): The data of L1-L4 has been changed to exclude the L3 and L4 vertebral bodies, because degenerative changes at these levels may cause overestimation of lumbar spine density. BMD 1.149 g/cm2, Z-score 3.1, T-score 2.1, normal. LEFT FEMUR, NECK: BMD 0.834 g/cm2, Z-score 0.0, T-score -1.8, osteopenia. LEFT FEMUR, TOTAL: BMD 0.997 g/cm2, Z-score 0.6, T-score -0.7, normal. IDENTIFIED RISK FACTORS: Glucocorticoids (chronic), height loss, rheumatoid arthritis. HISTORY OF FRACTURE: None listed. MEDICATIONS: Multivitamin. MM/XR DEXA axial skeleton IMPRESSION: 1. DIAGNOSIS: Osteopenia based on the lowest T-score value of -1.8 in the femoral neck applying World Health Organization criteria. 2. 10-YEAR FRACTURE RISK PREDICTION, FRAX: Major osteoporotic fracture (clinical spine, forearm, hip or shoulder) 16.1%. Hip fracture 7.1%. 3. Treatment Recommendations: NOF guidelines recommend consideration for treatment in postmenopausal women and men age 50 and older presenting with the following: -A hip or vertebral (clinical or morphometric) fracture. -T-score less than or equal to -2.5 at the femoral neck or spine after appropriate evaluation to exclude secondary causes. -Low bone mass at the hip or spine and a 10-year fracture probability by FRAX of greater than or equal to 3% for hip fracture or greater than or equal to 20% for major osteoporotic fracture based on the [place] adapted WHO algorithm. 4. Other Recommendations: All treatment decisions require clinical judgment and consideration of individual patient factors, including patient preferences, comorbidities, previous drug use, risk factors not captured in the FRAX model (e.g. frailty, falls, vitamin D deficiency, increased bone turnover, interval significant decline in bone density) and possible under or overestimation of fracture risk by FRAX. Additional medical evaluation for secondary cause of low bone mineral density may be appropriate. FUTURE SCAN RECOMMENDATION: People with diagnosed cases of osteoporosis or at high risk for fracture should have regular bone mineral density tests. For patients eligible for Medicare, routine testing is allowed once every 2 years. The testing frequency can be increased to one year for patients who have rapidly progressing disease, those who are receiving or discontinuing medical therapy to restore bone mass, or have additional risk factors.
== END 2020-09-22 08:02 | disposition home or self-care (01) ==
LOC: HO.MAMMO 08:01
PROVIDERS: Visit Provider Student in an Organized Health Care Education/Training Program
DX: Z13.820 Encounter for screening for osteoporosis (principal); R29.890 Loss of height; M06.9 Rheumatoid arthritis, unspecified; Z79.52 Long term (current) use of systemic steroids
CPT/HCPCS: 77080

== ENCOUNTER 2020-10-14 14:48 | Outpatient (REF) | payer MEDICARE, OTHER, SELFPAY ==
[2020-10-14 16:22] LABS: C Reactive Protein 0.03 mg/dL (< or = 0.50)
[2020-10-14 18:16] LABS: Erythrocyte Sedimentation Rate 2 MM/HR (0-15)
== END 2020-10-14 14:49 | disposition home or self-care (01) ==
LOC: HO.LAB 14:48
PROVIDERS: PCP Internal Medicine; Visit Provider Student in an Organized Health Care Education/Training Program
DX: M35.3 Polymyalgia rheumatica (principal); R79.89 Other specified abnormal findings of blood chemistry; Z79.52 Long term (current) use of systemic steroids
CPT/HCPCS: 36415; 85652; 86140; 99212

== ENCOUNTER 2020-11-19 09:05 | Outpatient (REF) | payer MEDICARE, OTHER, SELFPAY ==
[2020-11-19 11:43] LABS: Prostate Specific Antigen 19.74 ng/mL (<0.05-4.0)
== END 2020-11-19 09:06 | disposition home or self-care (01) ==
LOC: HO.LAB 09:05
PROVIDERS: PCP Internal Medicine; Visit Provider Urology
DX: Z12.5 Encounter for screening for malignant neoplasm of prostate (principal); N32.0 Bladder-neck obstruction
CPT/HCPCS: 36415; 84153

== ENCOUNTER 2020-11-24 14:00 | Outpatient (RCR) | payer MEDICARE, OTHER, SELFPAY ==
--- NOTE | 2020-09-29 16:13 | MHC.PT.EP ---
[facility] [place] Office [place] Office [place] Office [address] Don Pichardo 140 [facility] [phone] F: [phone] F: [phone] F: [phone] F: [phone] Physical Therapy Plan of Care Date of Evaluation: 09/29/20 Date of Surgery: n/a Diagnosis: Bursitis of L Shoulder Assessment: Pt is an 80 y/o referred for L shoulder bursitis having difficulty with reaching, lifting, bathing, dressing, vacuuming, and other ADLs, due to increased pain, decreased ROM, strength, joint mobility, and muscle flexibility. Pt is motivated and a good candidate for skilled PT. Frequency and Duration: The patient will be seen 2x a week for 4 weeks Short Term Goals: 1. I HEP in 2 weeks 2. L shoulder ER AROM to 85 degrees in 2 weeks 3. L shoulder ER MMT to 4+/5 in 2 weeks Snf Goals: 1. Place 3# object in overhead cabinet in 4 weeks 2. L shoulder ROM WNL in all ranges Treatment Plan: Modalities to reduce pain, spasms and effusion. Manual therapy to restore motion and function. Therapeutic exercise to improve strength and flexibility. Neuromuscular re-education for posture and balance. Therapeutic activities to return to functional activities of daily living. Electronically signed by: Tashia Tse Please sign and return to therapist. Thank you for your referral.
--- NOTE | 2020-11-29 13:38 | MHC.PT.DC ---
[facility] [place] Office [place] Office [address] Don Pichardo 140 [facility] [phone] F: [phone] F: [phone] F: [phone] F: [phone] Physical Therapy Discharge Report Diagnosis: Bursitis of L Shoulder Date of Surgery: n/a Date of Evaluation: 09/29/20 Date of Discharge: 11/25/20 Treatments to Date: 10 Cancellations to Date: 0 No Shows to Date: 0 Discharge Status: Achieved Goals Improved Function Independent with HEP Discharge Summary: Pt progressed well over the course of skilled PT making progress on impairments and functional limitations resulting in an improved quality of life. Pt is I with HEP and appropriate to d/c to HEP at this time. All goals MET. Electronically signed by: Wing Bell, PT Please sign and return to therapist. Thank you for your referral.
== END 2020-12-04 10:52 | disposition home or self-care (01) ==
LOC: HO.PTCHIC 14:00
PROVIDERS: Visit Provider Student in an Organized Health Care Education/Training Program
DX: M75.52 Bursitis of left shoulder (principal)
CPT/HCPCS: 97110; 97161

== ENCOUNTER 2020-12-09 15:28 | Outpatient (REF) | payer MEDICARE, OTHER, SELFPAY ==
[2020-12-09 16:50] LABS: Anion Gap 11 (12-20); Blood Urea Nitrogen 12 mg/dL (9-16); C Reactive Protein 0.77 mg/dL (< or = 0.50); Calcium 8.9 mg/dL (8.4-10.2); Carbon Dioxide 25 mmol/L (22-29); Chloride 97 mmol/L (96-108); Estimated Glomerular Filt Rate > 60; Glucose Random 173 mg/dL (60-115); Potassium 4.4 mmol/L (3.3-5.1); Sodium 129 mmol/L (135-145)
[2020-12-09 17:20] LABS: Erythrocyte Sedimentation Rate 8 MM/HR (0-15)
== END 2020-12-09 15:29 | disposition home or self-care (01) ==
LOC: HO.LAB 15:28
PROVIDERS: Student in an Organized Health Care Education/Training Program; PCP Otolaryngology; Visit Provider Student in an Organized Health Care Education/Training Program
DX: M35.3 Polymyalgia rheumatica (principal); J44.9 Chronic obstructive pulmonary disease, unspecified; Z79.899 Other long term (current) drug therapy; Z79.82 Long term (current) use of aspirin; Z79.52 Long term (current) use of systemic steroids; Z87.891 Personal history of nicotine dependence
CPT/HCPCS: 36415; 80048; 85652; 86140; 99212

== ENCOUNTER 2021-01-26 14:16 | Outpatient (REF) | payer MEDICARE, OTHER, SELFPAY ==
[2021-01-26 15:33] LABS: C Reactive Protein 1.46 mg/dL (< or = 0.50)
[2021-01-26 16:09] LABS: Erythrocyte Sedimentation Rate 12 MM/HR (0-15)
== END 2021-01-26 14:17 | disposition home or self-care (01) ==
LOC: HO.LAB 14:16
PROVIDERS: PCP Otolaryngology; Visit Provider Student in an Organized Health Care Education/Training Program
DX: M35.3 Polymyalgia rheumatica (principal); R79.89 Other specified abnormal findings of blood chemistry; Z79.52 Long term (current) use of systemic steroids
CPT/HCPCS: 36415; 85652; 86140; 99212

== ENCOUNTER → 2021-02-16 14:25 | Outpatient (BNVA) | payer MEDICARE, OTHER, SELFPAY | PROVIDERS: PCP Internal Medicine; Visit Provider Urology | DX: N40.2 Nodular prostate without lower urinary tract symptoms (principal); R97.20 Elevated prostate specific antigen [PSA] | CPT/HCPCS: 99212 ==

== ENCOUNTER 2021-03-03 11:22 | Outpatient (REF) | payer MEDICARE, OTHER, SELFPAY ==
[2021-03-03 11:44] VITALS: BP 133/64; PULSE 62; RESP 16; TEMP 36.3; O2SAT 96
[2021-03-03 11:45] VITALS: BMI 26.4
--- NOTE | 2021-03-03 12:37 | W.PM.OPN ---
Operative Note Operative Note Date of Service: 03/03/21 Narrative: Preoperative diagnosis: Elevated PSA Postoperative diagnosis: Elevated PSA Procedure: 1. transrectal ultrasound measurement of prostate 2. transrectal ultrasound-guided pudendal nerve block 3. transrectal ultrasound-guided prostate biopsy 12 core Surgeon: Dr. Husam Guerra Anesthetic: Local Indications for procedure: Elevated PSA - 19 with nodule Procedure: After informed consent was verified, the patient was brought into the procedure area and lay left-hand side down on the table. Patient identity confirmed. Perioperative antibiotics confirmed. Gel was placed per rectum Ultrasound probe was placed per rectum The prostate was measured in 3 dimensions Total volume equals 55 gm There were no cystic structures and no calcifications noted and the prostate was homogeneous in nature - nobbly appearance on left side A ultrasound-guided pudendal nerve block was performed using 10 cc of 1% lidocaine. 8 cc was placed at the base and 2 cc of the apex. A 12 core biopsy was performed with 6 cores each side. Two cores were taken at the apex, mid and base. Cores were spaced between lateral and medial. He tolerated the procedure well. Was able to ambulate to bathroom after 5 minutes. Printed instructions regarding antibiotic use and common side effects such as low-grade temperature and bleeding were given.
== END 2021-03-03 11:23 | disposition home or self-care (01) ==
LOC: HO.MS 11:22
PROVIDERS: PCP Otolaryngology; Visit Provider Urology
PROC: (CPT 55700; principal; 2021-03-03 12:00)
DX: C61 Malignant neoplasm of prostate (principal)
CPT/HCPCS: 55700; 76942; 88305

== ENCOUNTER → 2021-03-11 11:02 | Outpatient (BNVA) | payer MEDICARE, OTHER, SELFPAY | PROVIDERS: PCP Otolaryngology; Visit Provider Urology | DX: C61 Malignant neoplasm of prostate (principal); R31.29 Other microscopic hematuria; R97.20 Elevated prostate specific antigen [PSA]; F17.210 Nicotine dependence, cigarettes, uncomplicated | CPT/HCPCS: 99212 ==

== ENCOUNTER 2021-03-24 08:36 | Outpatient (REF) | payer MEDICARE, OTHER, SELFPAY ==
--- NOTE | ~2021-03-24 | CT_ITS ---
EXAMINATION: CT ABDOMEN AND PELVIS WITHOUT CONTRAST CLINICAL INFORMATION: Prostate cancer COMPARISON: Previous CT of the abdomen and pelvis November 2019 TECHNIQUE: Multidetector volumetric imaging was performed from the superior aspect of the liver through the pubic symphysis. Sagittal and coronal reformatted images were obtained on the technologist's workstation. This CT examination was performed using dose optimization techniques as appropriate, variously including the following: *Automated exposure control *Adjustment of mA and/or kV according to patient size (this includes techniques or standardized protocols for targeted exams where dose is matched to indication/reason for exam; i.e. extremities or head) *Use of iterative reconstruction technique DLP: 4 4 by mGy-cm FINDINGS: LUNG BASES: There are increased interstitial markings at the lung bases questionable for mild interstitial lung disease. LIVER, GALLBLADDER, AND BILIARY TREE: The liver is normal in size, shape, and attenuation. No focal hepatic lesion or biliary ductal dilatation is present. The gallbladder has been removed. PANCREAS: Unremarkable. SPLEEN: Unremarkable. ADRENAL GLANDS: Unremarkable. KIDNEYS AND URETERS: The kidneys are normal in size, shape, and attenuation. No hydronephrosis, hydroureter, or calculi seen. No perinephric stranding. BLADDER: Bladder is not optimally distended. There may be mild diffuse bladder wall thickening. GASTROINTESTINAL TRACT: There is diverticulosis of the colon. No evidence of diverticulitis is seen. The small and large bowel are unremarkable. The appendix is unremarkable. The stomach is unremarkable. ABDOMINAL WALL: No significant hernia is appreciated. LYMPH NODES: Normal. VASCULAR: There is evidence of atherosclerotic disease. No aneurysm is seen. PELVIC VISCERA: Prostate gland is normal in size and measures 3.3 cm in AP and transverse dimension. The left seminal vesicle is larger than the right. No abnormal soft tissue seen in the pelvis. OSSEOUS STRUCTURES: There are degenerative changes of the spine and hip joints. No fracture or bone lesion is seen. CT/CT abdomen pelvis wo con IMPRESSION: The prostate gland does not appear enlarged. The left seminal vesicle is larger than the right. The bladder is not optimally distended. There is question of mild diffuse bladder wall thickening. Diverticulosis of the colon.
== END 2021-03-24 08:37 | disposition home or self-care (01) ==
LOC: HO.CT 08:36
PROVIDERS: PCP Internal Medicine; Visit Provider Urology
DX: C61 Malignant neoplasm of prostate (principal)
CPT/HCPCS: 74176; 96402; 99212; J9217

== ENCOUNTER → 2021-03-28 10:44 | Outpatient (REF) | payer MEDICARE, OTHER, SELFPAY ==
--- NOTE | ~2021-03-28 | NM_ITS ---
EXAMINATION: NM BONE SCAN OF THE WHOLE BODY CLINICAL INFORMATION: Malignant neoplasm of prostate COMPARISON: None TECHNIQUE: Multiple gamma scintillation camera images of the whole body were performed 3 hours following the intravenous administration of 25 mCi Tc-99m MDP. FINDINGS: In the head, no abnormal activity seen In the thoracic cage and upper extremities, no abnormal activity seen In the spine, no abnormal activity seen In the pelvis, no abnormal activity seen In the lower extremities, there is a punctate moderate activity medial right knee likely degenerative arthritic changes. No additional abnormal activity seen. No other definite bony abnormalities are noted. The urinary bladder and faint visualization of both kidneys are noted. NM/NM bone scan whole body IMPRESSION: Moderate focal activity medial knee likely degenerative changes. No additional areas of abnormal activity seen to suspect any metastatic bone disease.
== END ==
LOC: HO.NUCMED 10:44
PROVIDERS: PCP Internal Medicine; Visit Provider Urology
DX: C61 Malignant neoplasm of prostate (principal)
CPT/HCPCS: 78306; A9503

== ENCOUNTER → 2021-04-07 08:37 | Outpatient (BNVA) | payer MEDICARE, OTHER, SELFPAY | PROVIDERS: PCP Internal Medicine; Visit Provider Urology | DX: C61 Malignant neoplasm of prostate (principal) | CPT/HCPCS: Q3014 ==

== ENCOUNTER 2021-04-18 12:21 | Outpatient (REF) | payer MEDICARE, OTHER, SELFPAY ==
[2021-04-18 14:44] LABS: C Reactive Protein 1.49 mg/dL (< or = 0.50)
[2021-04-18 14:59] LABS: Erythrocyte Sedimentation Rate 12 MM/HR (0-15)
== END 2021-04-18 12:22 | disposition home or self-care (01) ==
LOC: HO.LAB 12:21
PROVIDERS: PCP Internal Medicine; Visit Provider Nurse Practitioner Family
DX: M35.3 Polymyalgia rheumatica (principal); R79.89 Other specified abnormal findings of blood chemistry; F17.210 Nicotine dependence, cigarettes, uncomplicated; Z79.899 Other long term (current) drug therapy; Z79.52 Long term (current) use of systemic steroids
CPT/HCPCS: 36415; 85652; 86140; 99212

== ENCOUNTER 2021-05-24 07:23 | Outpatient (REF) | payer MEDICARE, OTHER, SELFPAY ==
[2021-05-24 07:40] VITALS: BP 123/63; PULSE 78; RESP 16; TEMP 36.5; O2SAT 97; BMI 26.3
--- NOTE | 2021-05-24 08:23 | W.PM.OPN ---
Operative Note Operative Note Date of Service: 05/24/21 Narrative: Preoperative diagnosis: Prostate cancer Postoperative diagnosis: Prostate cancer Procedure: 1. Transrectal ultrasound-guided pudendal nerve block 2. Transrectal ultrasound-guided gold seed placement Surgeon: Dr. Husam Guerra Anesthetic: Local Indications for procedure: Prostate Cancer Procedure: After informed consent was verified, the patient was brought into the procedure area and lay left-hand side down on the table. Patient identity confirmed. Perioperative antibiotics confirmed. Gel was placed per rectum Ultrasound probe was placed per rectum A ultrasound-guided pudendal nerve block was performed using 10 cc of 1% lidocaine. 8 cc was placed at the base and 2 cc of the apex. 3 gold seed markers placed. 2 on the right, 1 on the left. The purpose is for triangulation. He tolerated the procedure well. Was able to ambulate to bathroom after 5 minutes. Printed instructions regarding antibiotic use and common side effects such as low-grade temperature and bleeding were given
[2021-05-24 08:25] VITALS: BP 138/64; PULSE 68; RESP 16; O2SAT 97
== END 2021-05-24 07:24 | disposition home or self-care (01) ==
LOC: HO.MS 07:23
PROVIDERS: PCP Internal Medicine; Visit Provider Urology
PROC: (CPT 55876; principal; 2021-05-24 08:00)
DX: C61 Malignant neoplasm of prostate (principal)
CPT/HCPCS: 55876; 76942; A4648

== ENCOUNTER → 2021-05-26 10:10 | Outpatient (BNVA) | payer MEDICARE, OTHER, SELFPAY | PROVIDERS: PCP Internal Medicine; Visit Provider Hospitalist | DX: J41.0 Simple chronic bronchitis (principal); R91.8 Other nonspecific abnormal finding of lung field | CPT/HCPCS: 99212 ==

== ENCOUNTER 2021-07-05 11:11 | Outpatient (REF) | payer MEDICARE, OTHER, SELFPAY ==
[2021-07-05 13:25] LABS: C Reactive Protein 4.19 mg/dL (< or = 0.50)
[2021-07-05 14:14] LABS: Erythrocyte Sedimentation Rate 50 MM/HR (0-15)
== END 2021-07-05 11:12 | disposition home or self-care (01) ==
LOC: HO.LAB 11:11
PROVIDERS: PCP Internal Medicine; Visit Provider Nurse Practitioner Family
DX: M25.462 Effusion, left knee (principal); M35.3 Polymyalgia rheumatica; R79.89 Other specified abnormal findings of blood chemistry; Z79.52 Long term (current) use of systemic steroids
CPT/HCPCS: 36415; 85652; 86140; 99212

== ENCOUNTER → 2021-08-05 13:11 | Outpatient (BNVA) | payer MEDICARE, OTHER, SELFPAY | PROVIDERS: PCP Internal Medicine; Visit Provider Hospitalist | DX: J41.0 Simple chronic bronchitis (principal); R91.8 Other nonspecific abnormal finding of lung field | CPT/HCPCS: 99212 ==

== ENCOUNTER 2021-08-15 14:02 | Outpatient (REF) | payer MEDICARE, OTHER, SELFPAY ==
[2021-08-15 15:12] LABS: C Reactive Protein 1.38 mg/dL (< or = 0.50)
[2021-08-15 15:47] LABS: Erythrocyte Sedimentation Rate 42 MM/HR (0-15)
== END 2021-08-15 14:03 | disposition home or self-care (01) ==
LOC: HO.LAB 14:02
PROVIDERS: PCP Internal Medicine; Visit Provider Nurse Practitioner Family
DX: M35.3 Polymyalgia rheumatica (principal)
CPT/HCPCS: 36415; 85652; 86140

== ENCOUNTER → 2021-09-02 10:47 | Outpatient (BNVA) | payer MEDICARE, OTHER, SELFPAY | PROVIDERS: PCP Internal Medicine Infectious Disease; Visit Provider Urology | DX: C61 Malignant neoplasm of prostate (principal) | CPT/HCPCS: 99212 ==

== ENCOUNTER 2021-10-03 15:28 | Outpatient (REF) | payer MEDICARE, OTHER, SELFPAY ==
[2021-10-03 17:46] LABS: Prostate Specific Antigen < 0.05 ng/mL (<0.05-4.0)
[2021-10-08 08:52] LABS: Testosterone, Total 3 ng/dL (250-1100)
== END 2021-10-03 15:29 | disposition home or self-care (01) ==
LOC: HO.LAB 15:28
PROVIDERS: PCP Internal Medicine; Visit Provider Urology
DX: Z12.5 Encounter for screening for malignant neoplasm of prostate (principal); C61 Malignant neoplasm of prostate
CPT/HCPCS: 36415; 84153; 84403

== ENCOUNTER → 2021-10-07 11:14 | Outpatient (BNVA) | payer MEDICARE, OTHER, SELFPAY | PROVIDERS: PCP Internal Medicine Infectious Disease; Visit Provider Urology | DX: C61 Malignant neoplasm of prostate (principal) | CPT/HCPCS: 96402; 99212; J9217 ==

== ENCOUNTER 2021-10-12 14:56 | Outpatient (REF) | payer MEDICARE, OTHER, SELFPAY ==
--- NOTE | ~2021-10-12 | FL_ITS ---
EXAMINATION: XR BARIUM SWALLOW CLINICAL INFORMATION: Dysphagia. COMPARISON: None TECHNIQUE: Routine modified barium swallow was performed in a lateral fluoroscopy position with patient sitting on a chair in presence of speech therapist. FINDINGS: Following oral administration of various consistencies of barium which included thin, thick barium, barium puree, barium-coated chicken and cookie, there is normal propagation of bolus from the oral cavity through the pharynx, esophagus without any obstruction or narrowing. No laryngeal penetration or aspiration seen. Minimal retention of solid food seen in the vallecula which cleared with subsequent thin barium. FLUOROSCOPY TIME: 1.1 minute DOSE AREA PRODUCT: 0.898 uGy-m2 (microgray-meter squared) FL/FL barium swallow modified IMPRESSION: Unremarkable modified barium swallow exam. Correlate with speech therapy report.
--- NOTE | 2021-10-13 09:51 | MHC.SL.IMP ---
Date of Plan of Treatment: 10/12/21 Onset of Symptoms/Illness: 08/31/21 Date Treatment Started: 10/12/21 Admitting Diagnosis: Bursitis of right shoulder COPD Effusion left knee Effusion right knee Interstitial lung disease Medial meniscus tear Osteoarthritis of right knee Pes anserinus bursitis of right knee Pulmonary nodules SURGICAL HISTORY: Carpal tunnel release Cholecystectomy Colonoscopy Tonsillectomy Primary Speech & Language Diagnosis: R13.12 Oropharyngeal Phase Dysphagia Reason for Today's Visit: 39569 Modified Barium Swallow Study Pre-evaluation Dietary Consistencies: Regular Pre-evaluation Liquid Consistency: Thin Pre-evaluation Medication Administration: Whole with Liquid Medical History: Modified Barium Swallow Study Fluoroscopic Evaluation of Swallowing Function CPT Code 95846 Evaluation Year: 2021 Reason for Study: Patient reports difficulty swallowing hard solids. Referring Physician: Ken Allen M.D. Evaluating Clinician: Mely Johnson MA, CCC-COLOR ARTIST Study Number: 1 Patient Name: Deacon Keyes Status: Outpatient, Ambulatory Age: 81 Gender: Male MEDICAL HISTORY: Year of Onset or Diagnosis: 2021 Comorbidities: Bursitis of right shoulder COPD Effusion left knee Effusion right knee Interstitial lung disease Medial meniscus tear Osteoarthritis of right knee Pes anserinus bursitis of right knee Pulmonary nodules SURGICAL HISTORY: Carpal tunnel release Cholecystectomy Colonoscopy Tonsillectomy Current (pre-evaluation) Intake/Diet: Route: PO Diet Grade: Regular Liquid Consistencies: Thin Pre-Study Functional Oral Intake Scale (FOIS): 7- Total oral intake with no restrictions Pain: None reported at time of study SUBJECTIVE: Patient is an 81 year old male referred for a modified barium swallow study by Ken Allen MD from Pulmonology at [facility]. Patient?s medical history is significant for COPD and recent diagnosis of prostate cancer, treated with radiation treatment. Patient reports intermittent difficulty swallowing certain foods. He states that foods such as raw carrots and certain tough meats sometimes get ?lodged? in his throat, and he must drink water to get it down. Patient denies any pain when swallowing. He states that he is able to swallow liquids without any difficulty. Patient reports that these difficulties started ?many years ago.? Oral Motor Exam Facial Symmetry: Symmetrical Mouth Occlusion: Normal Oral-Facial Teeth Characteristics: Intact/Normal Dental Appliance Oral-Facial Lip Pucker Description: Normal Oral-Facial Smile (Lips) Description: Normal Oral-Facial Puff Cheeks Description: Normal Tongue Size: Normal Tongue Excursion Description: Normal Tongue Range of Movement Description: Normal Tongue Speed of Movement Description: Normal Tongue Strength of Movement (against opposing pressure): Normal Tongue Movement Characteristics: Normal/Absent Is patient able to manage secretions?: Yes Food and Liquid Trials: Oral Impairment: Lip Closure: 0=No labial escape Oral Impairment: Tongue Control During Bolus Hold: 0=Cohesive bolus between tongue to palatal seal Oral Impairment: Bolus Preparation/Mastication: 1=Slow prolonged chewing/mashing with complete re-collection Oral Impairment: Bolus Transport/Lingual Motion: 2=Slowed tongue motion Oral Impairment: Oral Residue: 2=Residue collection on oral structures Oral Impairment:Initiation of Pharyngeal Swallow: 3=Bolus head in pyriforms Pharyngeal Impairment: Soft Palate Elevation: 0=No bolus between soft palate (SP)/pharyngeal wall (PW) Pharyngeal Impairment: Laryngeal Elevation: 0=Complete superior movement of thyroid cartilage (see description) Pharyngeal Impairment: Anterior Hyoid Excursion: 1=Partial anterior movement Pharyngeal Impairment: Epiglottic Movement: 1=Partial inversion Pharyngeal Impairment: Laryngeal Vestibular Closure:: 0=Complete: no air/contrast in laryngeal vestibule Pharyngeal Impairment: Pharyngeal Stripping Wave: 0=Present: complete Pharyngeal Impairment: Pharyngeal Contraction: Did not test Pharyngeal Impairment: Pharyngoesophageal Segment Openin=Partial distention/partial duration: partial obstruction of flow Pharyngeal Impairment: Tongue Base (TB) Retraction: 3=Wide column of contrast/air between TB and posterior PW Pharyngeal Impairment: Pharyngeal Residue: 2=Collection of residue within or on pharyngeal structures Pharyngeal Impairment: Esophageal Clearance Upright Position: Did not test Impressions and Recommendations Clinical Observations: OBJECTIVE: Time-out: performed at 03:15 Evaluation Start: 03:00; Stop: 03:05 Patient Positioning: Seated 70-90 degrees Viewing Planes: LATERAL ONLY Contrast: MBSImP? Standardized Protocol using commercially prepared, standardized Barium viscosities, including: Varibar? THIN LIQUID (40% w/v, <15 cps) , 1/2 Shortbread Cookie (1 x1 x.25 ) MBSImP ID: [id number] MBSImP Results: Lip closure for intraoral bolus containment resulted in no labial escape. Tongue control during bolus hold maintained a cohesive bolus held between tongue to palate seal. Bolus preparation and mastication resulted in slow, prolonged chewing/mashing but with complete re-collection. Bolus transport/lingual motion was with slowed tongue motion. Oral residue was a collection on oral structures. Initiation of the pharyngeal swallow occurred when the bolus head was in the pyriform sinuses. Soft palate elevation resulted in no bolus between the soft palate and the pharyngeal wall. Laryngeal elevation demonstrated complete superior movement of the thyroid cartilage with complete approximation of the arytenoids to the epiglottic petiole. Anterior hyoid excursion demonstrated partial anterior movement. Epiglottic movement resulted in partial inversion. Laryngeal vestibular closure was complete, as indicated by no air or contrast within the laryngeal vestibule at the height of the swallow. Pharyngeal stripping wave was present and complete. Pharyngeal contraction could not be determined due to logistical reasons not related to physiologic impairment. Pharyngoesophageal segment opening demonstrated partial distension/partial duration, with partial obstruction of bolus flow. Tongue base retraction allowed a wide column of contrast or air between the retracted tongue base and the posterior pharyngeal wall. Pharyngeal residue was a collection of residue within or on pharyngeal structures. Esophageal clearance in the upright position could not be assessed due to logistical reasons not related to physiologic impairment. Oral Impairment Score: 8 Pharyngeal Impairment Score: 8 (absence of score, component 13) Esophageal Impairment Score: --- (absence of score, component 17) Laryngeal Penetration and Aspiration: Neither penetration nor aspiration was observed in today's study with Cookcarmen Thin. ASSESSMENT: Clinician Assessment: This exam was conducted by a multidisciplinary team which included the speech pathologist, radiologist, and machine set up technician. Patient was seated upright in chair at 90 degree angle for lateral view only. Patient trialed the following liquid and solid consistencies: 5 mL thin liquid barium, individual cup sip with bolus hold thin liquid barium, consecutive cup sips thin liquid barium, pureed solid (mixture applesauce with barium paste), ground solid (mixture chicken salad with barium paste), and regular solid ([place] cookie coated with barium paste). Patient demonstrated adequate labial seal with no anterior escape. Patient formed cohesive bolus between tongue to palatal seal, with no premature posterior escape. Mastication was mildly slowed, characterized by piece meal deglutition pattern. Patient chewed bolus, swallowed partial bolus, chewed remaining bolus, and swallowed again. Posterior lingual transit of bolus was mildly slowed. Mild oral residue subsequently cleared with dry swallow. Pharyngeal swallow trigger was delayed and initiated as bolus head reached pyriform sinuses. No nasopharyngeal reflux. Complete superior movement of thyroid cartilage and complete laryngeal vestibular closure. Partial inversion of epiglottis. Partial anterior movement of hyoid. No evidence of aspiration or penetration with solids and liquids. Mild residue on tongue base, posterior pharyngeal wall, and in valleculae. Pharyngeal residue effectively cleared with dry swallow or liquid wash. Liquid Intake Recommendation: Thin Liquid Intake Strategies: Small Sips Dietary Recommendations: Regular Medication Administration: Whole with Liquid Please contact the pharmacy regarding appropriate crushable or liquid drug formulations that are available whenever modified delivery is recommended. Compensatory Strategies Recommended: Sitting Upright (90 deg) Double Swallow Small Bites and Sips Alternate Liquids/Solids Rate of Ingestion Change Supervision during eating and or drinking: None Needed Recommendation for Speech Therapy: NA:Typical Evaluation PLAN: Intake Recommendations: Route: PO Diet Grade: Regular Liquid Consistencies: Thin Post-Study Functional Oral Intake Scale (FOIS): 7- Total oral intake with no restrictions No evidence of aspiration or penetration during this exam. Mild oral and pharyngeal retention cleared with dry swallow and liquid wash. Further ST intervention is not warranted. Patient is recommended to resume unmodified diet REGULAR solids and THIN liquids. COLOR ARTIST reviewed with patient strategies to promote oral and pharyngeal clearance: -take small bites -chew food well -moisten food with sauce/gravy as needed -alternate bite of food with sip of liquid -double swallow -upright 90 degree position during PO intake Therapy Recommendations: Therapy will be discontinued Prognosis for Improvement: The prognosis for the patient to meet nutritional needs by mouth is excellent based on degree of impairment. Clinician - Supplemental, Miscellaneous Communication: It is important to note MBSS objective studies are snapshots in time and Patient function might vary with factors such as time of day or concomitant medical conditions. For this reason, the final treatment plan for this patient should rest with their medical care team. Additional recommendations should be considered with the totality of the Patient in mind. Thank for the opportunity to participate in the care of this patient. If you have any questions about the content of this report, please contact the [facility] at [facility]. Education: Education regarding findings from today's study and plans for therapy were provided to Patient only through Verbal Instruction. Understanding was expressed by the Patient only. Manager Administrative Services Clinician/Clinical Fellow: No Supervisory Statement: N/A Speech Language Pathologist: Mely Johnson M.A., [facility]-COLOR ARTIST
== END 2021-10-12 14:57 | disposition home or self-care (01) ==
LOC: HO.XRAY 14:56
PROVIDERS: Visit Provider Hospitalist
DX: R13.10 Dysphagia, unspecified (principal)
CPT/HCPCS: 74230; 92611

== ENCOUNTER 2021-11-06 10:53 | Emergency (ER) | payer MEDICARE, OTHER, SELFPAY ==
[2021-11-06] VITALS (8 sets, daily range): BP systolic 113–129; BP diastolic 49–60; PULSE 66–74; RESP 14–20; TEMP 36.6–36.7; O2SAT 95–99; BMI 25.8
--- NOTE | ~2021-11-06 | XR_ITS ---
EXAMINATION: XR CHEST CLINICAL INFORMATION: Bradycardia. COMPARISON: Chest done on 07/05/2020. TECHNIQUE: Frontal view of the chest was obtained. FINDINGS: No significant abnormality is noted involving the heart, lungs, mediastinum, bony thorax or soft tissues. XR/XR chest 1V IMPRESSION: Unremarkable examination. No significant change since 07/05/2020.
--- NOTE | ~2021-11-06 | CT_ITS ---
EXAMINATION: CT HEAD WITHOUT CONTRAST CLINICAL INFORMATION: Syncope COMPARISON: Previous head CT February 2018 TECHNIQUE: Contiguous axial imaging was performed from the skull base to vertex without intravenous administration of contrast. This CT examination was performed using dose optimization techniques as appropriate, variously including the following: *Automated exposure control *Adjustment of mA and/or kV according to patient size (this includes techniques or standardized protocols for targeted exams where dose is matched to indication/reason for exam; i.e. extremities or head) *Use of iterative reconstruction technique DLP: 657 mGy-cm FINDINGS: There is no evidence of an extra-axial collection. There is no evidence of intra-axial or extra-axial hemorrhage. The ventricles and extra-axial CSF spaces are appropriate. There is calcification in the bilateral cerebellum that appears unchanged. There is mild nonspecific periventricular white matter disease. No mass, mass effect or infarct is seen. Review of bone windows is normal. Visualized paranasal sinuses, mastoid air cells and middle ears are clear. CT/CT head/brain wo con IMPRESSION: No acute findings. Stable exam from February 2018.
--- NOTE | 2021-11-06 11:11 | ECG_ITS ---
Test Reason : SYNCOPE Blood Pressure : / mmHG Vent. 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
[2021-11-06 11:26] LABS: MANUAL DIFF FLAG NO
[2021-11-06 11:32] LABS: Basophils Percent Auto 0.4 % (0-2); Eosinophils Absolute Auto 0.2 X10*3/uL (0.0-0.4); Eosinophils Percent Auto 2.7 % (0-4); Hematocrit 37.3 % (42.0-52.0); Hemoglobin 12.8 g/dl (14.0-18.0); Imm Gran Abs Auto 0.04 X10*3/uL (0.00-0.03); Imm Gran Pct Auto 0.5 % (0.0-0.4); Lymphocytes Absolute Auto 0.8 X10*3/uL (1.2-4.9); Lymphocytes Percent Auto 9.8 % (20-40); Mean Corpuscular HGB Conc 34.3 g/dl (31.0-36.0); Mean Corpuscular Hemoglobin 32.7 pg (27.0-33.0); Mean Corpuscular Volume 95.4 fL (80.0-98.0); Mean Platelet Volume 8.8 fL (9.4-12.4); Monocytes Absolute Auto 0.6 X10*3/uL (0.1-1.2); Monocytes Percent Auto 7.8 % (2-11); Neutrophils Absolute Auto 6.4 x10*3/uL (2.0-8.3); Neutrophils Percent Auto 78.8 % (45-73); Platelet Count 245 X10*3/uL (160-400); Red Blood Count 3.91 X10*6/uL (4.60-5.80); Red Cell Distribution Width 13.8 % (11.0-16.0); White Blood Count 8.1 X10*3/uL (4.8-10.8)
[2021-11-06 11:51] LABS: Anion Gap 10 (12-20); Blood Urea Nitrogen 11 mg/dL (9-16); Calcium 9.3 mg/dL (8.4-10.2); Carbon Dioxide 30 mmol/L (22-29); Chloride 96 mmol/L (96-108); Creatinine Clr Calc Pharmacy 68.7; Estimated Glomerular Filt Rate > 60; Glucose Random 179 mg/dL (60-115); Potassium 4.3 mmol/L (3.3-5.1); Sodium 132 mmol/L (135-145)
--- NOTE | 2021-11-06 11:51 | ED_ITS ---
HPI - Syncope General Chief Complaint: Syncope Stated Complaint: Syncope Time Seen by Provider: 11/06/21 11:37 Source: patient and family Mode of arrival: ambulatory Limitations: no limitations History of Present Illness HPI narrative: patient presents to the emergency department with his for evaluation after a syncopal episode. He states that while at in dominance today he was sitting on a stool for some time, he began to feel like he was having back pain and hot flashes so he moved to chair. Shortly thereafter he moved from the chair to a bench seating where he subsequently lied down and then passed out. According to his she is familiar with episodes like this occurring for him in the past, he became very pale, and initially responsive move after a few seconds he woke up with some initial confusion and his speech was not clear but within 30 seconds to 1 minute or so was back to his normal self. Was able to stand up and walk on his own to the restroom without difficulty. No reported seizure- like activity, bowel or bladder incontinence, did not fall or injure his head. He states that hot flashes are normal for him as there is side effect of his hormonal injections that he receives due to history of prostate cancer, last injection received 1.5 months ago. Does report that sometime last year he was evaluated after similar episode, in was told he had a vagal episode which is thought to be related to his car beta wall, for which they decreased the dosage of. Currently, he denies any symptoms, denies fevers, chills, headache, vision changes, neck pain, chest pain, palpitations, shortness of breath, dyspnea on exertion, nausea, vomiting, abdominal pain, dysuria, urinary frequency, numbness or tingling of the extremities, generalized weakness, unsteady gait. Related Data Home Medications Medication Instructions Recorded Confirmed allopurinol 100 mg tablet 100 mg PO DAILY 04/12/20 07/05/21 atorvastatin 40 mg tablet 40 mg PO BEDTIME 04/12/20 07/05/21 fluticasone 250 mcg-salmeterol 50 1 inh INHALATION BID 04/12/20 07/05/21 mcg/dose blistr powdr for inhalation (Advair Diskus) sacubitril 49 mg-valsartan 51 mg 1 tab PO BID 04/12/20 07/05/21 tablet (Entresto) cetirizine 10 mg tablet 10 mg PO DAILY PRN 07/05/20 07/05/21 aspirin 81 mg tablet,delayed 81 mg PO DAILY 08/18/20 07/05/21 release flu vacc [id number](65yr up)-PF 240 ml IM 08/18/20 08/18/20 mcg/0.7 mL intramuscular syringe [id number]-ecvnt acid 300 1 tab PO DAILY 08/18/20 07/05/21 mcg-lycopene 600 mcg-lutein 300 mcg tablet (Centrum Silver Men) nitroglycerin 0.4 mg sublingual 0 mg SUBLINGUAL 08/18/20 07/05/21 tablet varicella-zoster glycoE [id number] 0.5 ml IM DIRECTED 08/18/20 08/18/20 adj(PF) 50 mcg/0.5 mL IM susp, kit carvedilol 25 mg tablet 25 mg PO BID 04/07/21 07/05/21 calcium carbonate 500 mg calcium 500 mg PO DAILY 07/05/21 07/05/21 (1,250 mg) tablet (Calcium 500) tamsulosin 0.4 mg capsule 0.4 mg PO DAILY 08/05/21 carvedilol 12.5 mg tablet 12.5 mg PO BID 09/02/21 Previous Rx's Medication Instructions Recorded alendronate 70 mg tablet 70 mg PO QWEEK #12 tab 01/12/21 fluticasone fur. 100 mcg-umeclid 1 inh INHALATION DAILY 30 Days #60 05/26/21 62.5 mcg-vilant 25 mcg ea inhalat.powder (Trelegy Ellipta) finasteride 5 mg tablet 5 mg PO DAILY 90 Days #90 tab 08/22/21 Allergies Allergy/AdvReac Type Severity Reaction Status Date / Time No Known Allergies Allergy Verified 10/07/21 11:25 [No Known Allergies*] Review of Systems Review of Systems: Constitutional: No weight loss, fever, chills, weakness or fatigue. HEENT: No visual loss, blurred vision, double vision. No hearing loss, sneezing, congestion, runny nose or sore throat. Skin: No rash or itching. Cardiovascular: No chest pain, chest pressure or chest discomfort. No palpitations or pedal edema. Respiratory: No shortness of breath, cough or sputum production. Gastrointestinal: No anorexia, nausea, vomiting or diarrhea. No abdominal pain or blood in stool. Genitourinary: No burning micturition. No urinary frequency or incontinence. Neurologic: Positive syncope. No headache, dizziness, unilateral weakness, ataxia, numbness or tingling in the extremities. No change in bowel or bladder control. Musculoskeletal: No muscle pain, back pain, joint pain or stiffness. Hematologic: No bleeding or bruising. Lymphatics: No enlarged lymph nodes. Psychiatric:No depression or anxiety. Endocrine: No polyuria or polydipsia. Yes all other systems are reviewed and are negative [facility] Past Medical History Attestation statement: The following information was validated with the patient. Source: old records reviewed Medical History Bursitis of right shoulder COPD (chronic obstructive pulmonary disease) Effusion, left knee Effusion, right knee ILD (interstitial lung disease) Medial meniscus tear Osteoarthritis of right knee Pes anserinus bursitis of right knee Pulmonary nodules Surgical History History of carpal tunnel release History of cholecystectomy History of colonoscopy History of tonsillectomy Family History Family History Father No problems noted. Mother No problems noted. Son No problems noted. Social History Social History Household Members: Spouse Housing: [facility] Do you presently have visiting nurse or other home services: No Alcohol intake: current Alcohol intake frequency: a few times a month Alcohol type: beer Patient Tobacco Use Status: Former Tobacco user Tobacco use type: Cigarette Years Smoked: 30 years Use of substances other than those prescribed or required for medical reasons: No Advance Directives: No Advance Directives Information Provided: No service: Yes Current occupational status: retired 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 Physical Exam Vital Signs: Vital Signs: Last Vital Signs Temp 98.1 F 11/06/21 16:00 Pulse 68 11/06/21 16:00 Resp 20 11/06/21 16:00 BP 121/56 L 11/06/21 16:00 Pulse Ox 97 11/06/21 16:00 BMI result Body Mass Index 25.8 Vital signs have been reviewed as normal and appeared to be correct. Blood pressure normal.? Heart rate normal.? Respiration rate normal. Temperature normal.? Oxygen saturation normal. Appearance: Alert.?Oriented to person, place and time. No acute di stress.?Normal affect. Eyes: Pupils equal, round and reactive to light.?EOMi. No Nystagmus ENT: Pharynx normal.?? Neck: Normal inspection.? Neck supple.?? CVS: Heart sounds normal. Normal heart rate and rhythm.? Pulses normal.?No JVD. no pedal edema? Respiratory: No respiratory distress.? Lung sounds clear to auscultation bilaterally?? Abdomen: Soft and non-tender. Normoactive bowel sounds. No pulsatile mass.?? Skin: Skin warm and dry.? Normal skin color.? Normal skin turgor.?? Extremities: No lower extremity edema.? No calf ttp? Neuro: Moves all extremities spontaneously. Sensation intact bilaterally. CN II- XII intact. No focal neuro deficits. Ambulates with normal steady gait. NIH Stroke Scale Time: 11:37 Level of Consciousness: Alert Level of Consciousness Questions: Answers both questions correctly Level of Consciousness Commands: Performs both tasks correctly Best Gaze: Normal Visual: No visual loss Facial Palsy: Normal Motor Arm (Right): No drift Motor Arm (Left): No drift Motor Leg (Right): No drift Motor Leg (Left): No drift Limb Ataxia: Absent Sensory: Normal Best Language: No aphasia Dysarthia: Normal Extinction and Inattention: No abnormality Score: 0 Course Course Course Narrative: Patient is an 81-year-old male with a past medical history interstitial lung disease, prostate cancer, polymyalgia rheumatica, pulmonary nodules COPD, bladder outlet obstruction presenting to the emergency department for evaluation of a syncopal episode. Based on the history obtained from patient, this is consistent with prior syncopal episodes he has experienced which he reports are secondary to vagal episode. he has otherwise been feeling well without any preceding symptoms over the past few days, aside from hot flashes which are reportedly normal for him. concerning point is his hot flashes do not typically calls him to have vagal/syncopal episodes, he had no additional preceding prodrome of symptoms and the syncopal episode occurred while he was supine, however, he is without chest pain, shortness of breath, or palpitations. Will obtain CBC to evaluate for leukocytosis/ anemia, CMP to evaluate for abnormal electrolytes /abnormal renal function/ abnormal hepatic function, EKG and troponin to evaluate for arrhythmia/ischemia/ACS. CT on of the head to exclude ischemia, ICH, SAH. Reevaluation(s) Reevaluation #1: Orthostatic vital signs are normal. CBC reveals no leukocytosis, mild normocytic anemia with hemoglobin 12.8 and hematocrit 37.3 which is consistent with prior labs. Has a mild hyponatremia sodium of 132 consistent with prior labs. Troponin <3.5, EKG reveals sinus rhythm with 1st degree AV block, not noted to be present on prior EKGs. CT of the head with no acute findings. I spoke with patient and his son who is currently present at bedside, and advised we will repeat delta troponin, discussed possible admission for further evaluation observation of syncopal episode, however, he declines Reviewed potential risk factors complications of further syncopal episodes including fall, head injury, ACS, arrhythmia, and complications may be life threatening, he verbalizes understanding. He is alert and oriented x3, no confusion, clear speech, seemingly capable of making his own decisions at this time. Time: 13:20 Reevaluation #2: repeat troponin negative delta, remains <3.5. I again spoke with patient and his who is currently present at bedside and recommended hospital admission for further evaluation and observation. Patient continues to decline at this time. 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 All questions were answered. Time: 15:24 MDM - Syncope Medical Records Attestation: I reviewed the patient's medical records. Lab Data Attestation: I reviewed the patient's lab results. Result diagrams: 11/06/21 11:22 11/06/21 11:22 Labs: Lab Results 11/06/21 11/06/21 11/06/21 Range/Units 11:22 11:22 11:22 WBC 8.1 (4.8-10.8) X10*3/uL RBC 3.91 L (4.60-5.80) X10*6/uL Hgb 12.8 L (14.0-18.0) g/dl Hct 37.3 L (42.0-52.0) % MCV 95.4 (80.0-98.0) fL MCH 32.7 (27.0-33.0) pg MCHC 34.3 (31.0-36.0) g/dl RDW 13.8 (11.0-16.0) % Plt Count 245 (160-400) X10*3/uL MPV 8.8 L (9.4-12.4) fL Immature Gran % (Auto) 0.5 H (0.0-0.4) % Neut % (Auto) 78.8 H (45-73) % Lymph % (Auto) 9.8 L (20-40) % [place] % (Auto) 7.8 (2-11) % Eos % (Auto) 2.7 (0-4) % Baso % (Auto) 0.4 (0-2) % Lymph # (Auto) 0.8 L (1.2-4.9) X10*3/uL [place] # (Auto) 0.6 (0.1-1.2) X10*3/uL Eos # (Auto) 0.2 (0.0-0.4) X10*3/uL Baso # (Auto) 0.0 (0.0-0.2) X10*3/uL Abs Immat Gran (auto) 0.04 H (0.00-0.03) X10*3/uL Absolute Neuts (auto) 6.4 (2.0-8.3) x10*3/uL Absolute Nucleated RBC 0.000 (0.0-0.012) X10*3/uL Nucleated RBC % (auto) 0.0 (0.0-0.2) /100WBC Sodium 132 L (135-145) mmol/L Potassium 4.3 (3.3-5.1) mmol/L Chloride 96 (96-108) mmol/L Carbon Dioxide 30 H (22-29) mmol/L Anion Gap 10 L (12-20) BUN 11 (9-16) mg/dL Creatinine 0.76 (0.5-1.4) mg/dL Estim Creat Clear Calc 68.7 Estimated GFR > 60 Random Glucose 179 H (60-115) mg/dL Calcium 9.3 (8.4-10.2) mg/dL Troponin I High Sens < 3.5 (<3.5-35.0) ng/L COVID-19 ([facility]) (Negative) COVID-19 Clin Com Influenza Type A ([facility]) (Negative) Influenza Type B ([facility]) (Negative) Influenza A & B Note 11/06/21 11/06/21 11/06/21 Range/Units 12:34 12:34 14:48 WBC (4.8-10.8) X10*3/uL RBC (4.60-5.80) X10*6/uL Hgb (14.0-18.0) g/dl Hct (42.0-52.0) % MCV (80.0-98.0) fL MCH (27.0-33.0) pg MCHC (31.0-36.0) g/dl RDW (11.0-16.0) % Plt Count (160-400) X10*3/uL MPV (9.4-12.4) fL Immature Gran % (Auto) (0.0-0.4) % Neut % (Auto) (45-73) % Lymph % (Auto) (20-40) % [place] % (Auto) (2-11) % Eos % (Auto) (0-4) % Baso % (Auto) (0-2) % Lymph # (Auto) (1.2-4.9) X10*3/uL [place] # (Auto) (0.1-1.2) X10*3/uL Eos # (Auto) (0.0-0.4) X10*3/uL Baso # (Auto) (0.0-0.2) X10*3/uL Abs Immat Gran (auto) (0.00-0.03) X10*3/uL Absolute Neuts (auto) (2.0-8.3) x10*3/uL Absolute Nucleated RBC (0.0-0.012) X10*3/uL Nucleated RBC % (auto) (0.0-0.2) /100WBC Sodium (135-145) mmol/L Potassium (3.3-5.1) mmol/L Chloride (96-108) mmol/L Carbon Dioxide (22-29) mmol/L Anion Gap (12-20) BUN (9-16) mg/dL Creatinine (0.5-1.4) mg/dL Estim Creat Clear Calc Estimated GFR Random Glucose (60-115) mg/dL Calcium (8.4-10.2) mg/dL Troponin I High Sens < 3.5 (<3.5-35.0) ng/L COVID-19 ([facility]) Negative (Negative) COVID-19 Clin Com See Note Influenza Type A ([facility]) Negative (Negative) Influenza Type B ([facility]) Negative (Negative) Influenza A & B Note See Note Imaging Data CT scan - head: Radiologist's impression: FINDINGS: There is no evidence of an extra-axial collection. There is no evidence of intra-axial or extra-axial hemorrhage. The ventricles and extra-axial CSF spaces are appropriate. There is calcification in the bilateral cerebellum that appears unchanged. There is mild nonspecific periventricular white matter disease. No mass, mass effect or infarct is seen. Review of bone windows is normal. Visualized paranasal sinuses, mastoid air cells and middle ears are clear. CT/CT head/brain wo con IMPRESSION: No acute findings. Stable exam from February 2018. Chest x-ray: Radiologist's impression: FINDINGS: No significant abnormality is noted involving the heart, lungs, mediastinum, bony thorax or soft tissues. XR/XR chest 1V IMPRESSION: Unremarkable examination. No significant change since 07/05/2020. ECG Data Attestation: I personally reviewed and interpreted this ECG as follows: ECG interpretation date: 11/06/21 ECG interpretation time: 12:10 Prior ECG tracings: available for review Interpretation: Rate: 65 Rhythm:? sinus rhythm first-degree AV block Senath:? normal Normal P waves.? prolonged LUDIVINA 214 Normal QRS complex.?? ST T wave :?? no ST elevation, ST depression qTC: 422 prior studies:? June 2020 The study has been interpreted contemporaneously by me. Discharge Plan Discharge Clinical Impression: Syncope, 1st degree AV block Patient Disposition: Left Against Medical Advice Instructions: Syncope (ED) Additional Instructions: It was advised that you stay in the hospital for further evaluation and observa tion but you declined. 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 Please return to the emergency department with any new or worsening symptoms or concerns. Please continue taking your medications as currently prescribed. Prescriptions: No Action alendronate 70 mg tablet 70 mg PO QWEEK Qty: 12 3RF finasteride 5 mg tablet 5 mg PO DAILY 90 Days Qty: 90 2RF cetirizine 10 mg Tablet 10 mg PO DAILY PRN (Reason: Allergic Symptoms) 0RF aspirin 81 mg tablet,delayed release (DR/EC) 81 mg PO DAILY 0RF nitroglycerin 0.4 mg tablet, sublingual 0 mg sublingual 0RF Centrum Silver Men 300-600-300 mcg tablet 1 tab PO DAILY 0RF Shingrix (PF) 50 mcg/0.5 mL suspension for reconstitution 0.5 ml IM DIRECTED 0RF Fluzone HighDose Quad 20-21 PF 240 mcg/0.7 mL syringe IM 0RF fluticasone propion-salmeterol [Advair Diskus] 250-50 mcg/dose blister with device 1 inh inhalation BID 0RF Entresto 49-51 mg tablet 1 tab PO BID 0RF atorvastatin 40 mg tablet 40 mg PO BEDTIME 0RF allopurinol 100 mg tablet 100 mg PO DAILY 0RF Trelegy Ellipta 100-62.5-25 mcg blister with device 1 inh inhalation DAILY 30 Days Qty: 60 11RF carvedilol 25 mg tablet 25 mg PO BID 0RF carvedilol 12.5 mg tablet 12.5 mg PO BID 0RF tamsulosin 0.4 mg capsule 0.4 mg PO DAILY 0RF calcium carbonate [Calcium 500] 500 mg calcium (1,250 mg) tablet 500 mg PO DAILY 0RF Interventions: ED Discharge Assessment Last Done: 11/06/21 16:31 Discharge Date/Time: 11/06/21 16:34
[2021-11-06 11:59] LABS: Troponin-I High Sensitivity < 3.5 ng/L (<3.5-35.0)
--- NOTE | 2021-11-06 12:35 | PC.NURSE ---
pt return from ct scan
--- NOTE | 2021-11-06 13:14 | PC.NURSE ---
pt a&ox3, vss, pt denies any dizziness/chest pain/SOB at this time. family at bedside, provider in room w pt.
[2021-11-06 13:26] LABS: IDNOW Serial# 16C4AD1C; Influenza A Negative (Negative); Influenza B2 Negative (Negative)
[2021-11-06 13:28] LABS: COVID-19 Test Negative (Negative); IDNOW Serial# 55D5AD1C
--- NOTE | 2021-11-06 14:50 | PC.NURSE ---
repeat lab drawn per order, patient remains a&ox3, denies pain/discomfort, pvc monitor nsr 1st degree block, family at bedside, will continue to monitor.
[2021-11-06 15:20] LABS: Troponin-I High Sensitivity < 3.5 ng/L (<3.5-35.0)
--- NOTE | 2021-11-06 16:15 | PC.NURSE ---
patient a&ox3, family at bedside, provider explained to patient she wished for him to spend the night, pt refusing admission at this time, pt was explained he would be discharged against medical advice. This nurse explained to the patient to ensure to follow up with his providers.
== END 2021-11-06 16:34 | disposition left against medical advice (07) ==
PROVIDERS: Nurse Practitioner Family; Emergency Provider Emergency Medicine; PCP Internal Medicine
DX: I44.0 Atrioventricular block, first degree (principal); R00.1 Bradycardia, unspecified; R55 Syncope and collapse; Z20.822 Contact with and (suspected) exposure to COVID-19; Z87.891 Personal history of nicotine dependence; Z79.899 Other long term (current) drug therapy
CPT/HCPCS: 36415; 70450; 71045; 80048; 84484; 85025; 87502; 87635; 93005; 99284; 99285

== ENCOUNTER 2021-11-10 13:34 | Outpatient (REF) | payer MEDICARE, OTHER, SELFPAY ==
--- NOTE | ~2021-11-10 | CT_ITS ---
EXAMINATION: CT CHEST WITHOUT CONTRAST CLINICAL INFORMATION: Abnormal finding of the lung field. COMPARISON: Radiograph 11/06/2021. Chest CT 03/08/2018. TECHNIQUE: Multidetector volumetric CT imaging of the chest was done. Axial MIP volume rendering provided. Sagittal and coronal reformatted images were obtained. This CT examination was performed using dose optimization techniques as appropriate, variously including the following: *Automated exposure control *Adjustment of mA and/or kV according to patient size (this includes techniques or standardized protocols for targeted exams where dose is matched to indication/reason for exam; i.e. extremities or head) *Use of iterative reconstruction technique DLP: 162 mGy-cm FINDINGS: LUNGS: The central airways are patent. There is severe centrilobular emphysema with upper lobe predominance. This has progressed since 2018. Paraseptal emphysema also present. Mild bronchiectasis. Minimal cystic change at the left base. No groundglass disease. No pneumothorax. Unchanged fissural lymph node along the right minor fissure, series 10 image 88. No septal thickening. No evidence of air trapping. MEDIASTINUM: Normal heart size. Coronary artery calcification. No pericardial effusion. No mediastinal lymphadenopathy. PLEURA: There is no pleural effusion. No pleural mass or thickening. AXILLA: No lymphadenopathy. UPPER ABDOMEN: Cholecystectomy. No acute abnormality in the visualized upper abdomen. OSSEOUS STRUCTURES: No acute or suspicious osseous abnormality. Mild degenerative changes of the spine. CT/CT chest wo con IMPRESSION: Severe upper lobe emphysema. There are some changes of chronic fibrosis as well with bronchiectasis. No acute findings. No suspicious pulmonary nodules. Fleischner guidelines were followed.
== END 2021-11-10 13:35 | disposition home or self-care (01) ==
LOC: HO.CT 13:34
PROVIDERS: PCP Internal Medicine; Visit Provider Hospitalist
DX: J84.9 Interstitial pulmonary disease, unspecified (principal); R91.8 Other nonspecific abnormal finding of lung field
CPT/HCPCS: 71250

== ENCOUNTER → 2021-11-15 12:09 | Outpatient (BNVA) | payer MEDICARE, OTHER, SELFPAY | PROVIDERS: PCP Internal Medicine; Visit Provider Nurse Practitioner Family | DX: M35.3 Polymyalgia rheumatica (principal); R79.89 Other specified abnormal findings of blood chemistry; Z79.52 Long term (current) use of systemic steroids | CPT/HCPCS: 99212 ==

== ENCOUNTER 2021-11-16 13:45 | Outpatient (REF) | payer MEDICARE, OTHER, SELFPAY ==
[2021-11-16 14:42] LABS: C Reactive Protein 0.46 mg/dL (< or = 0.50)
[2021-11-16 14:53] LABS: Erythrocyte Sedimentation Rate 19 MM/HR (0-15)
== END 2021-11-16 13:46 | disposition home or self-care (01) ==
LOC: HO.LAB 13:45
PROVIDERS: Absent Provider Urology; PCP Internal Medicine; Visit Provider Nurse Practitioner Family
DX: M35.3 Polymyalgia rheumatica (principal)
CPT/HCPCS: 36415; 85652; 86140

== ENCOUNTER → 2021-11-23 11:48 | Outpatient (RCR) | payer MEDICARE, OTHER, SELFPAY ==
--- NOTE | 2020-07-22 14:56 | MHC.PT.EP ---
[facility] [place] Office [place] Office [place] Office [address] P[address] [phone] F: [phone] F: [phone] F: [phone] F: [phone] Physical Therapy Plan of Care Date of Evaluation: 07/22/20 Date of Surgery: none Diagnosis: L knee pain Assessment: Patient is a 79 year old R handed male who presents with s/s consistent with L knee pain. He was recently here with R knee pain that has mostly resolved. He likes to stay active running errands as needed and working around the house as needed. Patient past medical history includes ME. Current impairments include pain, ROM, strength, safety, independence, activity tolerance and functional mobility. Functional limitations include decreased ability to walk, stand, transfer, negotiate stairs, and perform weight bearing activities.. Patient is motivated with good rehab potential. Skilled PT will address impairments and functional limitations in order to achieve goals. Frequency and Duration: The patient will be seen 2x/week for 5 weeks Short Term Goals: I with HEP - 2 weeks AROM 5/120 - 3 weeks Max pain with ADLs, sleep - 3/10 - 3 weeks Log Manager Goals: LEFS 60/80 - 5 weeks AROM 0-126 - 5 weeks LE strength 4/5 grossly - 5 weeks Treatment Plan: Modalities to reduce pain, spasms and effusion. Manual therapy to restore motion and function. Therapeutic exercise to improve strength and flexibility. Neuromuscular re-education for posture and balance. Therapeutic activities to return to functional activities of daily living. Electronically signed by: Wing Bell, PT Please sign and return to therapist. Thank you for your referral.
--- NOTE | 2020-10-29 13:51 | MHC.PT.DC ---
[facility] [place] Office [place] Office [place] Office [address] Don Pichardo 140 [facility] [phone] F: [phone] F: [phone] F: [phone] F: [phone] Physical Therapy Discharge Report Diagnosis: L knee pain Date of Surgery: none Date of Evaluation: 07/22/20 Date of Discharge: 09/29/20 Treatments to Date: 13 Cancellations to Date: No Shows to Date: Discharge Status: Achieved Goals Discharge Summary: Pt progressed well over the course of skilled PT making progress on impairments and functional limitations resulting in an improved quality of life. Pt is I with HEP and appropriate to d/c to HEP at this time. Electronically signed by: Wing Bell, PT Please sign and return to therapist. Thank you for your referral.
== END | disposition home or self-care (01) ==
LOC: HO.PTCHIC 07-22 13:46
PROVIDERS: PCP Internal Medicine; Visit Provider Orthopaedic Surgery
DX: M17.11 Unilateral primary osteoarthritis, right knee (principal); M25.462 Effusion, left knee
CPT/HCPCS: 97110; 97140; 97162

== ENCOUNTER 2022-01-02 08:47 | Outpatient (REF) | payer MEDICARE, OTHER, SELFPAY ==
[2022-01-02 10:22] LABS: Prostate Specific Antigen < 0.05 ng/mL (<0.05-4.0)
[2022-01-05 09:31] LABS: Testosterone, Total 5 ng/dL (250-1100)
== END 2022-01-02 08:48 | disposition home or self-care (01) ==
LOC: HO.LAB 08:47
PROVIDERS: PCP Internal Medicine; Visit Provider Urology
DX: Z12.5 Encounter for screening for malignant neoplasm of prostate (principal); C61 Malignant neoplasm of prostate
CPT/HCPCS: 36415; 84153; 84403

== ENCOUNTER → 2022-01-12 11:07 | Outpatient (BNVA) | payer MEDICARE, OTHER, SELFPAY | PROVIDERS: PCP Internal Medicine; Visit Provider Urology | DX: C61 Malignant neoplasm of prostate (principal) | CPT/HCPCS: Q3014 ==

== ENCOUNTER 2022-03-23 08:15 | Outpatient (REF) | payer MEDICARE, OTHER, SELFPAY ==
[2022-03-23 10:09] LABS: Prostate Specific Antigen < 0.05 ng/mL (<0.05-4.0)
[2022-03-29 07:16] LABS: Testosterone, Total 5 ng/dL (250-1100)
== END 2022-03-23 08:16 | disposition home or self-care (01) ==
LOC: HO.LAB 08:15
PROVIDERS: PCP Internal Medicine; Visit Provider Urology
DX: Z12.5 Encounter for screening for malignant neoplasm of prostate (principal); R97.20 Elevated prostate specific antigen [PSA]
CPT/HCPCS: 36415; 84153; 84403

== ENCOUNTER → 2022-04-19 09:16 | Outpatient (BNVA) | payer MEDICARE, OTHER, SELFPAY | PROVIDERS: PCP Internal Medicine; Visit Provider Urology | DX: C61 Malignant neoplasm of prostate (principal); M85.80 Other specified disorders of bone density and structure, unspecified site | CPT/HCPCS: 96402; 99212; J9217 ==

== ENCOUNTER 2022-05-15 13:01 | Outpatient (REF) | payer MEDICARE, OTHER, SELFPAY ==
--- NOTE | ~2022-05-15 | XR_ITS ---
EXAMINATION: XR HAND, LEFT CLINICAL INFORMATION: Left hand contusion. COMPARISON: None TECHNIQUE: PA, lateral, and oblique views of the left hand. FINDINGS: Bones have normal alignment in the hand or wrist. Small osteophytes of the mildly degenerated first carpometacarpal joint. The focus of ossification at the radial aspect of the index finger metacarpal could be sequela of remote trauma. The metacarpophalangeal joints are unremarkable. There is narrowing of joint space and small osteophytes of multiple distal interphalangeal joints. Soft tissues appear to be mildly swollen around the proximal interphalangeal joint of the fifth digit. A small ossific density of 1 mm length projecting volar to the interphalangeal joint is of uncertain chronicity. However, if the patient had recent hyperextension injury of this joint, then this could represent a recent small volar plate avulsion fracture. XR/XR hand LT min 3V IMPRESSION: Mild osteoarthritis of the first carpometacarpal joint and of multiple interphalangeal joints. The finding of a small focus of ossification volar to the PIP joint of the fifth digit requires clinical correlation. If there was recent hyperextension injury, then this could represent a recent, mildly displaced volar plate avulsion fracture.
== END 2022-05-15 13:02 | disposition home or self-care (01) ==
LOC: HO.HMGCX 13:01
PROVIDERS: PCP Internal Medicine; Visit Provider Internal Medicine
DX: S60.222A Contusion of left hand, initial encounter (principal); X58.XXXA Exposure to other specified factors, initial encounter; Y93.9 Activity, unspecified; Y92.9 Unspecified place or not applicable; Y99.9 Unspecified external cause status
CPT/HCPCS: 73130

== ENCOUNTER → 2022-05-18 11:51 | Outpatient (BNVA) | payer MEDICARE, OTHER, SELFPAY | PROVIDERS: PCP Internal Medicine; Visit Provider Nurse Practitioner Family | DX: M35.3 Polymyalgia rheumatica (principal); R79.89 Other specified abnormal findings of blood chemistry; Z79.52 Long term (current) use of systemic steroids | CPT/HCPCS: 99212 ==

== ENCOUNTER → 2022-05-30 08:21 | Outpatient (BNVA) | payer MEDICARE, OTHER, SELFPAY | PROVIDERS: PCP Internal Medicine; Visit Provider Hospitalist | DX: J41.0 Simple chronic bronchitis (principal); R91.8 Other nonspecific abnormal finding of lung field | CPT/HCPCS: 99212 ==

== ENCOUNTER 2022-07-25 12:17 | Outpatient (REF) | payer MEDICARE, OTHER, SELFPAY ==
[2022-07-25 14:26] LABS: Alanine Aminotransferase 15 U/L (0-40); Albumin Level 4.1 g/dL (3.5-5.0); Alkaline Phosphatase 61 U/L (39-117); Anion Gap 12 (12-20); Aspartate Amino Transferase 17 U/L (5-37); Bilirubin Total 0.7 mg/dL (0.0-1.0); Blood Urea Nitrogen 14 mg/dL (9-16); Carbon Dioxide 25 mmol/L (22-29); Chloride 98 mmol/L (96-108); Estimated Glomerular Filt Rate > 60; Glucose Random 103 mg/dL (60-115); Potassium 4.6 mmol/L (3.3-5.1); Sodium 130 mmol/L (135-145); Total Protein 6.7 g/dL (6.5-8.0)
[2022-07-25 14:29] LABS: Vitamin D 25-OH Total 23.4 ng/mL (>30)
[2022-07-25 14:44] LABS: Prostate Specific Antigen < 0.10 ng/mL (<0.05-4.0)
[2022-07-30 18:09] LABS: Testosterone, Total 3 ng/dL (250-1100)
== END 2022-07-25 12:18 | disposition home or self-care (01) ==
LOC: HO.LAB 12:17
PROVIDERS: Absent Provider Urology; PCP Internal Medicine; Visit Provider Nurse Practitioner Family
DX: Z12.5 Encounter for screening for malignant neoplasm of prostate (principal); C61 Malignant neoplasm of prostate; Z79.52 Long term (current) use of systemic steroids
CPT/HCPCS: 36415; 80053; 82306; 84153; 84403

== ENCOUNTER → 2022-08-08 11:09 | Outpatient (BNVA) | payer MEDICARE, OTHER, SELFPAY | PROVIDERS: PCP Internal Medicine; Visit Provider Urology | DX: C61 Malignant neoplasm of prostate (principal); N40.1 Benign prostatic hyperplasia with lower urinary tract symptoms; N13.8 Other obstructive and reflux uropathy; R33.8 Other retention of urine; Z79.899 Other long term (current) drug therapy | CPT/HCPCS: Q3014 ==

== ENCOUNTER 2022-09-26 12:26 | Outpatient (REF) | payer MEDICARE, OTHER, SELFPAY ==
--- NOTE | ~2022-09-26 | MM_ITS ---
EXAMINATION: BONE DENSITOMETRY CLINICAL INDICATION: Other specified personal risk factors, not elsewhere classified. COMPARISON: Baseline BD dated 09/22/2020. TECHNIQUE: Using a [employer] DXA System (software version: 13.1) manufactured by [employer], dual-energy x-ray absorptiometry was performed of the lumbar spine and left hip. The images are of good technical quality. Summary results are attached. FINDINGS: AP SPINE L1-L2 (excluding L3 and L4): The data of L1-L4 has been changed to exclude the L3 and L4 vertebral bodies, because degenerative changes at these levels may cause overestimation of lumbar spine density. Current: BMD 1.521 g/cm2, Z-score 3.6, T-score 2.7, normal, 5.0% increase from baseline (<5% change is not significant). Baseline: BMD 1.449 g/cm2. LEFT FEMUR, NECK: Current: BMD 0.752 g/cm2, Z-score -0.7, T-score -2.4, osteopenia. Baseline: BMD 0.834 g/cm2. LEFT FEMUR, TOTAL: Current: BMD 0.965 g/cm2, Z-score 0.4, T-score -0.9, normal, 3.2% decrease from baseline (<5% change is not significant). Baseline: BMD 0.997 g/cm2. IDENTIFIED RISK FACTORS: Height loss, glucocorticoids (chronic). HISTORY OF FRACTURE: None listed. MEDICATIONS: Multivitamin, vitamin D, bisphosphonate. MM/XR DEXA axial skeleton IMPRESSION: 1. DIAGNOSIS: Osteopenia based on the lowest T-score value of -2.4 in the femoral neck applying World Health Organization criteria. 2. 10-YEAR FRACTURE RISK PREDICTION, FRAX: Not performed in this patient on estrogen or bone building treatments. 3. Treatment Recommendations: NOF guidelines recommend consideration for treatment in postmenopausal women and men age 50 and older presenting with the following: -A hip or vertebral (clinical or morphometric) fracture. -T-score less than or equal to -2.5 at the femoral neck or spine after appropriate evaluation to exclude secondary causes. -Low bone mass at the hip or spine and a 10-year fracture probability by FRAX of greater than or equal to 3% for hip fracture or greater than or equal to 20% for major osteoporotic fracture based on the [place] adapted WHO algorithm. 4. Other Recommendations: All treatment decisions require clinical judgment and consideration of individual patient factors, including patient preferences, comorbidities, previous drug use, risk factors not captured in the FRAX model (e.g. frailty, falls, vitamin D deficiency, increased bone turnover, interval significant decline in bone density) and possible under or overestimation of fracture risk by FRAX. Additional medical evaluation for secondary cause of low bone mineral density may be appropriate. FUTURE SCAN RECOMMENDATION: People with diagnosed cases of osteoporosis or at high risk for fracture should have regular bone mineral density tests. For patients eligible for Medicare, routine testing is allowed once every 2 years. The testing frequency can be increased to one year for patients who have rapidly progressing disease, those who are receiving or discontinuing medical therapy to restore bone mass, or have additional risk factors.
== END 2022-09-26 12:27 | disposition home or self-care (01) ==
LOC: HO.MAMMO 12:26
PROVIDERS: PCP Internal Medicine; Visit Provider Nurse Practitioner Family
DX: M81.8 Other osteoporosis without current pathological fracture (principal); Z91.89 Other specified personal risk factors, not elsewhere classified
CPT/HCPCS: 77080

== ENCOUNTER 2022-10-17 14:20 | Outpatient (REF) | payer MEDICARE, OTHER, SELFPAY ==
[2022-10-17 15:55] LABS: Vitamin D 25-OH Total 28.6 ng/mL (>30)
[2022-10-17 16:13] LABS: Prostate Specific Antigen < 0.10 ng/mL (<0.05-4.0)
[2022-10-25 13:58] LABS: Testosterone, Total 3 ng/dL (250-1100)
== END 2022-10-17 14:21 | disposition home or self-care (01) ==
LOC: HO.LAB 14:20
PROVIDERS: Nurse Practitioner Family; Visit Provider Urology
DX: C61 Malignant neoplasm of prostate (principal); E55.9 Vitamin D deficiency, unspecified; Z12.5 Encounter for screening for malignant neoplasm of prostate
CPT/HCPCS: 36415; 82306; 84153; 84403

== ENCOUNTER 2022-11-07 10:45 | Outpatient (REF) | payer MEDICARE, OTHER, SELFPAY ==
[2022-11-07 16:29] LABS: Urine Cytology See Pathology rpt
== END 2022-11-07 10:46 | disposition home or self-care (01) ==
LOC: HO.LAB 10:45
PROVIDERS: PCP Internal Medicine; Visit Provider Urology
DX: R31.29 Other microscopic hematuria (principal); C61 Malignant neoplasm of prostate; Z79.899 Other long term (current) drug therapy
CPT/HCPCS: 88112; 99212

== ENCOUNTER → 2022-12-04 14:08 | Outpatient (BNVA) | payer MEDICARE, OTHER, SELFPAY | PROVIDERS: PCP Internal Medicine; Visit Provider Nurse Practitioner Family | DX: M35.3 Polymyalgia rheumatica (principal); M85.80 Other specified disorders of bone density and structure, unspecified site; E27.49 Other adrenocortical insufficiency; R79.89 Other specified abnormal findings of blood chemistry; Z95.0 Presence of cardiac pacemaker; Z79.83 Long term (current) use of bisphosphonates | CPT/HCPCS: 99212 ==

== ENCOUNTER 2023-02-22 13:10 | Outpatient (REF) | payer MEDICARE, OTHER, SELFPAY ==
[2023-02-22 16:10] LABS: Alanine Aminotransferase 16 U/L (0-40); Albumin Level 3.8 g/dL (3.5-5.0); Alkaline Phosphatase 50 U/L (39-117); Anion Gap 10 (12-20); Aspartate Amino Transferase 16 U/L (5-37); Bilirubin Total 0.5 mg/dL (0.0-1.0); Blood Urea Nitrogen 13 mg/dL (9-16); Calcium 8.7 mg/dL (8.4-10.2); Carbon Dioxide 26 mmol/L (22-29); Chloride 97 mmol/L (96-108); Estimated Glomerular Filt Rate > 60; Glucose Random 91 mg/dL (60-115); Potassium 4.1 mmol/L (3.3-5.1); Sodium 129 mmol/L (135-145); Total Protein 6.5 g/dL (6.5-8.0)
[2023-02-22 16:52] LABS: Prostate Specific Antigen < 0.10 ng/mL (<0.05-4.0)
[2023-02-28 12:18] LABS: Testosterone, Total 3 ng/dL (250-1100)
== END 2023-02-22 13:11 | disposition home or self-care (01) ==
LOC: HO.LAB 13:10
PROVIDERS: Nurse Practitioner Family; PCP Internal Medicine; Visit Provider Urology
DX: Z12.5 Encounter for screening for malignant neoplasm of prostate (principal); C61 Malignant neoplasm of prostate; M85.80 Other specified disorders of bone density and structure, unspecified site
CPT/HCPCS: 36415; 80053; 84153; 84403

== ENCOUNTER 2023-03-13 14:06 | Outpatient (AMB) | payer MEDICARE, OTHER, SELFPAY ==
--- NOTE | 2023-03-13 14:07 | MHC.OFFVIS ---
Intake Intake Visit Reasons: 4M PSA/Testosterone(set) Intake Note: Patient is present for Telephone LABS Urology Med: Tamsulosin Antibiotic Allergy: None Blood Thinner: Aspirin Pharmacy: [facility] Allergies No Known Allergies [No Known Allergies*] Allergy (Verified 03/13/23 14:09) Medication List - Last Reconciled 03/13/23 by Husam Guerra MD alendronate 70 mg PO QWEEK allopurinol 100 mg PO DAILY amiodarone 400 mg PO DAILY aspirin 81 mg PO DAILY atorvastatin 40 mg PO BEDTIME calcium carbonate (Calcium 500) 500 mg PO DAILY carvedilol 6.25 mg PO BID cholecalciferol (vitamin D3) (Vitamin D3) 25 mcg PO DAILY fexofenadine 60 mg PO BID flu vacc [id number](65yr up)-PF mL IM uhtlgtrswcp-rfdxbmupi-czhtsogn 100-62.5-25 mcg (Trelegy Ellipta) 1 ea PO DAILY ipratropium bromide 2 sprays intranasal TID PRN multivitamin 1 tab PO DAILY nitroglycerin 0 mg sublingual sacubitril-valsartan 49-51 mg (Entresto) 1 tab PO BID tamsulosin 0.4 mg PO DAILY 90 days varicella-zoster [id number] (PF) 50 mcg/0.5 mL 0.5 mL IM DIRECTED HPI HPI Comments History of Present Illness Details Deacon is a very pleasant male. He is a patient of Dr Pierre. He is seen for the following urologic conditions. - prostate cancer Telemedicine Evaluation 15 min Consultation Doximity Watson Video attempted PSA remains undetectable Still with hot flashes Should resolve within next 6 months 11/05 P <0.1 T 03/07 P <0.1 Prostate cancer high grade, high volume diagnosed February 2021 PSA 18 PSA 10/04 <0.1, 01/04 <0.1 , 04/06 <0.1 , 08/07 <0.1 T3 Prostate cancer diagnosed by Dr. 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 4+4=8 (A,C,D,F,G,H,J); 4+5=9 (B, I, K, L) Tumor quantitation: Number cores positive:??11 Total number of cores:??12 Periprostatic fat inv.: Not identified. Seminal vesicle inv.: Not identified. Perineural inv.: Present. LVI: Not identified [facility] initial March 242020 after bicalutamide run in with finasteride - 08/07 completed finasteride Staging 04/05 CT scan no evidence of tru disease 04/05 bone scan no evidence of metastatic disease 10/03 DEXA scan osteopenia from long-term steroid use [facility] Medical History Bursitis of right shoulder COPD (chronic obstructive pulmonary disease) Effusion, left knee Effusion, right knee ILD (interstitial lung disease) Medial meniscus tear Osteoarthritis of right knee Pacemaker Pes anserinus bursitis of right knee Pulmonary nodules Surgical History History of carpal tunnel release History of cholecystectomy History of colonoscopy History of tonsillectomy Family History Father No problems noted. Mother No problems noted. Son No problems noted. Social History Household Members: Spouse Housing: [facility] Do you presently have visiting nurse or other home services: No Alcohol intake: current Alcohol intake frequency: a few times a month Alcohol type: beer Patient Tobacco Use Status: Former Tobacco user Tobacco use type: Cigarette Years Smoked: 30 years service: Yes Current occupational status: retired 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 Review of Systems Const All systems reviewed & are unremarkable except as noted in HPI and below Reports no additional complaints Resp Reports no additional complaints GI Reports no additional complaints Reports as per HPI Musc Reports no additional complaints Physical Exam Telemedicine evaluation Appropriate responses Regular breathing rate and rhythm HEENT Head: Yes normal to inspection Ears: hearing grossly normal bilaterally Eyes General: appearance normal, both eyes and all related structures Neck Neck: Yes normal visual inspection Chest Chest palpation & inspection: normal inspection of the chest Resp Effort & Inspection: normal respiratory effort and able to speak in complete sentences Assessment & Plan Assessment & Plan (1) Bladder outlet obstruction: Code(s): N32.0 - Bladder-neck obstruction (2) Prostate cancer: Comment: 04/05 High-grade, moderate volume, localized disease Initial therapy external beam radiation with [facility] August 2021 Code(s): C61 - Malignant neoplasm of prostate Plan Four month follow-up labs Orders: Orders Prostate Specific Antigen 4 Months C61 - Malignant neoplasm of prostate Testosterone, Total 4 Months C61 - Malignant neoplasm of prostate Patient Instructions: Imaging studies, laboratory and physical exam results were discussed and reviewed in detail. No major barriers to patient understanding were identified. An opportunity to ask questions regarding the treatment plan was provided. All questions were answered. The patient expressed understanding and agreement with the above treatment plan. The patient is aware they should contact our office by phone for worsening of their current condition or the appearance of new urologic symptoms. Compliance is encouraged with any medications and followup testing that is ordered. It is a privilege to participate in the urologic care of your patient. If you have any questions or concerns regarding treatment for the above conditions, or other urologic issues, please do not hesitate to contact me. The office telephone contact is [phone]. This note is constructed using voice recognition software. While every effort has been made to ensure accuracy affirmative action specialist errors may have been included. Yours sincerely, Dr Husam Guerra MD, [facility] Providers of Expert, Compassionate Care for the Genitourinary System Telehealth Telehealth Location of provider rendering services: practice address Location of patient: address on file Patient Identification confirmed using: Name, : Yes Telehealth method: voice only Patient verbally consented to treatment: Yes Patient verbally consented to billing insurance company: Yes Patient informed of any privacy concerns related to visit: Yes Coding Level of Care Code Tele Est Pt Level 3 (51892) Diagnoses Bladder outlet obstruction N32.0 Prostate cancer C61
== END 2023-03-13 15:31 | disposition home or self-care (01) ==
LOC: HO.HUSH 14:06
PROVIDERS: PCP Internal Medicine; Visit Provider Urology
DX: N32.0 Bladder-neck obstruction (principal); C61 Malignant neoplasm of prostate
CPT/HCPCS: 99442

== ENCOUNTER → 2023-03-13 14:06 | Outpatient (BNVA) | payer MEDICARE, OTHER, SELFPAY | PROVIDERS: PCP Internal Medicine; Visit Provider Urology ==

== ENCOUNTER 2023-05-03 10:40 | Outpatient (AMB) | payer MEDICARE, OTHER, SELFPAY ==
[2023-05-03 11:01] VITALS: BP 128/70; PULSE 74; O2SAT 95; BMI 27.2
--- NOTE | 2023-05-03 11:01 | MHC.OFFVIS ---
Intake Vital Signs 05/03/23 11:01 Height 5 ft 5 in Weight 163 lb 9.328 oz BMI 27.2 BP 128/70 Blood Pressure Location Lt brachial Position Sitting Pulse 74 Pulse Source Pulse Oximeter Pulse Oximetry (%) 95 Oxygen Delivery Method Room Air Intake Visit Reasons: COPD Manager Medical Affairs Required: No Allergies No Known Allergies [No Known Allergies*] Allergy (Verified 05/03/23 11:04) HPI HPI Comments History of Present Illness Details The patient is a 82-year-old gentleman known COPD not in any respiratory therapy at this time. He had a period in time where he developed C diff colitis abdominal pain and complicated by pneumonia. He has since improved. When he was admitted to the [facility] he did undergo a CT scan of the chest ruling out PE but did find a pulmonary nodule in his right lung. But 6 mm in size. Had a repeat CT scan from month later and the nodule was still present. More recently he did have issues with hematuria. The sense improved, but, he did have a CT scan of the abdomen that demonstrated some of the lung windows did not go up to the level of the nodule. The patient has been having some coughing. The cough is usually associated with some mucus. Wyvf-we-xhwxtqkx severity. He has been taking Mucinex with good effect. Otherwise is doing good no weight loss no night sweats no fatigue. 05/03/2023 the patient is here for pulmonary follow-up visit. Overall he is doing better from a respiratory status. He continues uses Trelegy inhaler all those very expensive for him. Last year he went on [facility] to pale lot of money for the medication. Clinically the patient is doing better so will try to deescalate his respiratory therapy in hopes that he can find something more financially reasonable. He also has a pacemaker and apparently a cardiac arrhythmia that was concerning. The patient is scheduled to undergo a defibrillator at this time. His last CT scan of the chest was back in 2021 demonstrating emphysema and also interstitial lung disease. The pulmonary nodules were not seen. The patient has been complaining of a cough. The cough for the most part is nonproductive in nature. Likely upper airway cough syndrome. Will try using nasal therapy to try to minimize the postnasal drip. His pharynx appeared to be erythematous. There was 1 area that appeared to be little bit more pale. [facility] Medical History Bursitis of right shoulder COPD (chronic obstructive pulmonary disease) Effusion, left knee Effusion, right knee ILD (interstitial lung disease) Medial meniscus tear Osteoarthritis of right knee Pacemaker Pes anserinus bursitis of right knee Pulmonary nodules Surgical History History of carpal tunnel release History of cholecystectomy History of colonoscopy History of tonsillectomy Family History Father No problems noted. Mother No problems noted. Son No problems noted. Social History Household Members: Spouse Housing: [facility] Do you presently have visiting nurse or other home services: No Alcohol intake: current Alcohol intake frequency: a few times a month Alcohol type: beer Patient Tobacco Use Status: Former Tobacco user Tobacco use type: Cigarette Years Smoked: 30 years service: Yes Current occupational status: retired 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 Review of Systems Const Denies night sweats ENT Denies change in voice, Denies lip swelling, Denies mouth pain, Reports nasal congestion, Reports nasal discharge and Denies tongue swelling Card Denies chest pain Resp Reports cough GI Denies abdominal pain Reports as per HPI Musc Reports arthralgias, Reports limited range of motion and Reports stiffness Neuro Denies Neuro-related abnormal movements Psych Denies no additional complaints Rod/Lymph Denies easy bleeding and Denies lymphadenopathy Aller/Immun Denies lip swelling and Denies tongue swelling Physical Exam Vital Signs: Last Vital Signs Pulse 74 05/03/23 11:01 BP 128/70 05/03/23 11:01 Pulse Ox 95 05/03/23 11:01 Oxygen Delivery Method Room Air 05/03/23 11:01 BMI result Body Mass Index 27.2 Const General: alert HEENT Other: Head: Yes normocephalic Throat: Yes posterior oropharynx abnormal Neck Neck: Yes normal visual inspection, Yes full ROM and Yes no lymphadenopathy Chest Chest palpation & inspection: normal inspection of the chest Resp Auscultation: clear to auscultation bilaterally, no rhonchi and no wheezes Cardio Rate: regular rate Rhythm: regular rhythm Heart sounds: S1 normal heart sound present and S2 normal heart sound present GI Palpation (GI): Soft to palpation and nontender Auscultation: normal bowel sounds Skin General skin exam: rashes and/or lesions noted Results Reviewed Results Reviewed: [address] [address] [address] Scan Report Signed Patient: Deacon Keyes Jr MR#: [id number] : 1940 Acct:[id number] Age/Sex: 81 / M ADM Date: 11/10/21 Loc: HO.CT Attending Dr: Ken Allen MD Ordering Physician: Ken Allen MD Date of Service: 11/10/21 Procedure(s): CT chest wo con Accession Number(s): [id number] cc: Ken Allen MD~ EXAMINATION: CT CHEST WITHOUT CONTRAST CLINICAL INFORMATION: Abnormal finding of the lung field. COMPARISON: Radiograph 11/06/2021. Chest CT 03/08/2018. TECHNIQUE: Multidetector volumetric CT imaging of the chest was done. Axial MIP volume rendering provided. Sagittal and coronal reformatted images were obtained. This CT examination was performed using dose optimization techniques as appropriate, variously including the following: *Automated exposure control *Adjustment of mA and/or kV according to patient size (this includes techniques or standardized protocols for targeted exams where dose is matched to indication/reason for exam; i.e. extremities or head) *Use of iterative reconstruction technique DLP: 162 mGy-cm FINDINGS: LUNGS: The central airways are patent. There is severe centrilobular emphysema with upper lobe predominance. This has progressed since 2018. Paraseptal emphysema also present. Mild bronchiectasis. Minimal cystic change at the left base. No groundglass disease. No pneumothorax. Unchanged fissural lymph node along the right minor fissure, series 10 image 88. No septal thickening. No evidence of air trapping. MEDIASTINUM: Normal heart size. Coronary artery calcification. No pericardial effusion. No mediastinal lymphadenopathy. PLEURA: There is no pleural effusion. No pleural mass or thickening. AXILLA: No lymphadenopathy. UPPER ABDOMEN: Cholecystectomy. No acute abnormality in the visualized upper abdomen. OSSEOUS STRUCTURES: No acute or suspicious osseous abnormality. Mild degenerative changes of the spine. CT/CT chest wo con IMPRESSION: Severe upper lobe emphysema. There are some changes of chronic fibrosis as well with bronchiectasis. No acute findings. No suspicious pulmonary nodules. Fleischner guidelines were followed. Dictated By: Tom Da Silva MD Signed By: <Electronically signed by Tom Da Silva MD in OV> 11/11/21 1046 DD/ 1441 TD/TT: Tax Audit Manager: TAMMY Assessment & Plan Assessment & Plan (1) COPD (chronic obstructive pulmonary disease): Code(s): J44.9 - Chronic obstructive pulmonary disease, unspecified Qualifiers: COPD type: chronic bronchitis Chronic bronchitis type: simple Qualified Code(s): J41.0 - Simple chronic bronchitis (2) Pulmonary nodules: Code(s): R91.8 - Other nonspecific abnormal finding of lung field Plan stop Trelegy inhaler start Advair start fluticasone nasal spray stop Ipratropium nasal spray as needed will discuss additional imaging next visit Follow-up in 6 months Medications: New fluticasone propion-salmeterol 250-50 mcg/dose (Advair Diskus) 1 inh inhalation Q12H 30 days 60 ea 11RF fluticasone propionate 50 mcg/actuation 2 sprays intranasal DAILY 30 days 15.8 mL 11RF J31.0 - Chronic rhinitis Coding Level of Care Code Est Pt Level 4 (03600) Diagnoses 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 COPD type: chronic bronchitis Chronic bronchitis type: simple Pulmonary nodules R91.8 Time Spent (min) 17
== END 2023-05-03 11:31 | disposition home or self-care (01) ==
PROVIDERS: PCP Internal Medicine; Visit Provider Hospitalist
DX: J41.0 Simple chronic bronchitis (principal); R91.8 Other nonspecific abnormal finding of lung field
CPT/HCPCS: 99214

== ENCOUNTER → 2023-05-03 10:40 | Outpatient (BNVA) | payer MEDICARE, OTHER, SELFPAY | PROVIDERS: PCP Internal Medicine; Visit Provider Hospitalist | DX: J41.0 Simple chronic bronchitis (principal); R91.8 Other nonspecific abnormal finding of lung field | CPT/HCPCS: 99212 ==

== ENCOUNTER 2023-05-05 11:34 | Outpatient (AMB) | payer MEDICARE, OTHER, SELFPAY ==
--- NOTE | 2023-05-05 11:44 | AM.OFFWIN_ITS ---
Intake Vital Signs 05/05/23 11:45 Height 5 ft 5 in Weight 76.204 kg BMI 28.0 BP 122/60 Blood Pressure Location Lt brachial Position Sitting Pulse 82 Pulse Source Pulse Oximeter Temp 97.9 F Pulse Oximetry (%) 95 Intake Visit Reasons: Ep, cough (masked) Intake Note: pt is here today for cough Patient Tobacco Use Status: Former Tobacco user Allergies No Known Allergies [No Known Allergies*] Allergy (Verified 05/05/23 11:49) Do you need a note to return to daycare/school/sports/work: No HPI HPI Comments History of Present Illness Details 1205 82 year old male history of COPD, inters titial lung disease, pacemaker in place, pulmonary nodule, osteoarthritis presenting to the clinic for evaluation of cough that is been going on for the past 2 days, worsening. Patient reports at times he is coughing up sputum that is white/clear. He reports his at home is sick with similar symptoms. He tells me with most uncomfortable is the cough. He states at times worse at night. He is vaccinated against flu/COVID/RSV. COVID tested and negative. Denies fevers, chills, headache, vision changes, dizziness and weakness. Physical examination benign. Lungs clear. Patient is saturating 95% even after ambulation. Vital signs stable Concerns for viral illness versus bacterial bronchitis due to production of sputum and patient history. Unlikely pneumonia, pulmonary embolism, atypical presentation of ACS. No signs of acute respiratory distress. Plan COVID test, chest x-ray. Educated patient on diagnosis and treatment plan, answered all question, patient verbalizes understanding. At this time patient will be discharged home, advised to return with new or worsening symptoms. Educated on worrisome signs and symptoms and when to return. At this time I feel comfortable discharge home. [facility] Medical History Pacemaker ILD (interstitial lung disease) Pulmonary nodules COPD (chronic obstructive pulmonary disease) Effusion, left knee Bursitis of right shoulder Medial meniscus tear Osteoarthritis of right knee Pes anserinus bursitis of right knee Effusion, right knee Surgical History History of carpal tunnel release History of cholecystectomy History of tonsillectomy History of colonoscopy Family History Father No problems noted. Mother No problems noted. Son No problems noted. Social History Household Members: Spouse [facility] Do you presently have visiting nurse or other home services: No Alcohol intake: current Alcohol intake frequency: a few times a month Alcohol type: beer Patient Tobacco Use Status: Former Tobacco user Tobacco use type: Cigarette Years Smoked: 30 years service: Yes Current occupational status: retired 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 Review of Systems Const Details: Constitutional : No Weight loss, No Fever, No Chills, + Fatigue, + Malaise ENT/Mouth : No sore throat, No Rhinorrhea Eyes: No Eye Pain, No Swelling, No Redness Cardiovascular : No Chest Pain, No SOB, No Dyspnea on Exertion, No Orthopnea, No Edema, No Palpitations Respiratory : + Cough, No Sputum, No Wheezing Gastrointestinal : No Nausea, No Vomiting, No Diarrhea, No Constipation, No abdominal Pain, No Hematochezia, No Melena Genitourinary : No Dysuria, No Urinary Frequency, No Hematuria, Musculoskeletal : No joint pain, No Myalgias, No Joint Swelling Skin : No Skin Lesions, No rash Neuro : No Weakness, No Numbness, No Dizziness, No Headache Psych : No Anxiety/Panic, No Depression All other systems reviewed and are negative All systems reviewed & are unremarkable except as noted in HPI and below Physical Exam Vital Signs: Last Vital Signs Temp 97.9 F 05/05/23 11:45 Pulse 82 05/05/23 11:45 BP 122/60 05/05/23 11:45 Pulse Ox 95 05/05/23 11:45 BMI result Body Mass Index 28.0 vss Appearance: Alert.? Oriented X3.? No acute distress.? Head: Normocephalic, atraumatic, no step-offs or deformities Eyes: Pupils equal, round and reactive to light.? ENT: Pharynx w/ slight erethyma. no exudate, or abscess. Neck: Normal inspection.? Neck supple.? CVS: Normal heart rate and rhythm.? Pulses normal.? Respiratory: No respiratory distress.? Breath sounds normal.? Skin: Skin warm and dry.? Normal skin color.? Normal skin turgor.? Extremities: No lower extremity edema.? No calf ttp. 5/5 strength to bilateral upper and lower extremities Neuro: Oriented X 3.? No motor deficit.? No sensory deficit. CN 2-12 intact Assessment & Plan Assessment & Plan (1) Acute bronchitis: Code(s): J20.9 - Acute bronchitis, unspecified Plan Take your medications as prescribed. If you were prescribed antibiotics today, it is important that you take your medication to their entirety, do not skip any doses, do not finish them early. Follow-up with your primary care provider this week. Return to the emergency department with new or worsening symptoms. Such as fevers, chills, chest pain, shortness of breath, nausea, vomiting, dizziness, headache, vision changes, lethargy In case of emergency call 911 Orders: Orders XR chest 2V Today J20.9 - Acute bronchitis, unspecified BinaxNOW Covid-19 Ag Today J20.9 - Acute bronchitis, unspecified Medications: New prednisone 40 mg (2 x 20 mg) PO DAILY 5 days 10 tabs 0RF albuterol sulfate 90 mcg/actuation 2 puffs inhalation Q6H PRN 6.7 grams 0RF shortness of breath or wheezing doxycycline hyclate 100 mg PO BID 7 days 14 caps 0RF benzonatate 100 mg PO BID PRN 14 caps 0RF cough Coding Level of Care Code Est Pt Level 3 (02659) Diagnoses Acute bronchitis J20.9
[2023-05-05 11:45] VITALS: BP 122/60; PULSE 82; TEMP 36.6; O2SAT 95; BMI 28.0
== END 2023-05-05 14:57 | disposition home or self-care (01) ==
PROVIDERS: PCP Internal Medicine; Visit Provider Physician Assistant
DX: J20.9 Acute bronchitis, unspecified (principal)
CPT/HCPCS: 99213

== ENCOUNTER 2023-05-05 12:03 | Outpatient (REF) | payer MEDICARE, OTHER, SELFPAY ==
--- NOTE | ~2023-05-05 | XR_ITS ---
EXAMINATION: XR CHEST CLINICAL INFORMATION: Acute bronchitis. COMPARISON: Chest x-ray 11/06/2021. TECHNIQUE: 2 views of the chest were obtained. FINDINGS: Left subclavian double lead pacer with leads in the right atrium and right ventricle. The cardiomediastinal silhouette is stable. The lungs are hyperexpanded. Mild peribronchial thickening suggesting airways disease. No consolidation. No effusion or pneumothorax. Mild endplate degenerative changes in the thoracic spine. XR/XR chest 2V IMPRESSION: Findings consistent with emphysema/COPD. No focal pneumonia.
[2023-05-05 13:05] LABS: Binax Internal Control QC Valid; Binax Now Covid-19 Ag Negative (Negative); Binax Performed by: HO.TORG
== END 2023-05-05 12:04 | disposition home or self-care (01) ==
LOC: HO.HMGCX 12:03
PROVIDERS: PCP Internal Medicine; Visit Provider Physician Assistant
DX: J20.9 Acute bronchitis, unspecified (principal); Z11.52 Encounter for screening for COVID-19
CPT/HCPCS: 71046; 87811

== ENCOUNTER 2023-05-30 13:43 | Outpatient (AMB) | payer MEDICARE, OTHER, SELFPAY ==
--- NOTE | 2023-05-30 13:58 | A.OFFVIS_ITS ---
Intake Vital Signs 05/30/23 14:01 Height 5 ft 5 in Weight 166 lb 10.711 oz BMI 27.7 BP 102/58 L Blood Pressure Location Rt brachial Position Sitting Pulse 73 Pulse Source Pulse Oximeter Temp 97.9 F Temp Source Skin Pulse Oximetry (%) 96 Intake Visit Reasons: Polymyalgia rheumatica Intake Note: Pt last seen by Jocelynn 12/04/22, presents today for follow up and test results. On Alendronate, calcium, vitamin D [employer] Required: No Accompanied by: Self / Same As Patient Allergies No Known Allergies [No Known Allergies*] Allergy (Verified 05/30/23 14:06) Medication List - Last Reconciled 05/30/23 by Dulce Maria Portillo MD albuterol sulfate 90 mcg/actuation 2 puffs inhalation Q6H PRN alendronate 70 mg PO QWEEK allopurinol 100 mg PO DAILY amiodarone 400 mg PO DAILY aspirin 81 mg PO DAILY atorvastatin 40 mg PO BEDTIME benzonatate 100 mg PO BID PRN calcium carbonate (Calcium 500) 500 mg PO DAILY cholecalciferol (vitamin D3) (Vitamin D3) 25 mcg PO DAILY fexofenadine 60 mg PO BID flu vacc [id number](65yr up)-PF mL IM fluticasone propion-salmeterol 250-50 mcg/dose (Advair Diskus) 1 inh inhalation Q12H 30 days fluticasone propionate 50 mcg/actuation 2 sprays intranasal DAILY 30 days hscahwupldz-lrkqjxkes-cbggnwct 100-62.5-25 mcg (Trelegy Ellipta) 1 ea PO DAILY ipratropium bromide 2 sprays intranasal TID PRN multivitamin 1 tab PO DAILY nitroglycerin 0 mg sublingual sacubitril-valsartan 49-51 mg (Entresto) 1 tab PO BID tamsulosin 0.4 mg PO DAILY 90 days varicella-zoster [id number] (PF) 50 mcg/0.5 mL 0.5 mL IM DIRECTED HPI HPI Comments History of Present Illness Details 82 yo M presents for follow-up of polymy algia rheumatica and osteopenia. He was last seen by Deborah Reese 11/2022. Off prednisone for approximately since approximately July 2021. He denies any return of PMR symptoms. States that he feels great overall. Had a new pacemaker/defibrillator placed 2 weeks ago and procedure was uneventful. Compliant with alendronate. Well tolerated. On androgen deprivation therapy for prostate cancer [facility] Medical History Pacemaker ILD (interstitial lung disease) Pulmonary nodules COPD (chronic obstructive pulmonary disease) Effusion, left knee Bursitis of right shoulder Medial meniscus tear Osteoarthritis of right knee Pes anserinus bursitis of right knee Effusion, right knee Surgical History History of carpal tunnel release History of cholecystectomy History of tonsillectomy History of colonoscopy Family History Father No problems noted. Mother No problems noted. Son No problems noted. Social History Household Members: Spouse Housing: [facility] Do you presently have visiting nurse or other home services: No Alcohol intake: current Alcohol intake frequency: a few times a month Alcohol type: beer Patient Tobacco Use Status: Former Tobacco user Tobacco use type: Cigarette Years Smoked: 30 years service: Yes Current occupational status: retired 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 Review of Systems Musc Denies arthralgias, Denies joint swelling and Denies limited range of motion Physical Exam Vital Signs: Last Vital Signs Temp 97.9 F 05/30/23 14:01 Pulse 73 05/30/23 14:01 BP 102/58 L 05/30/23 14:01 Pulse Ox 96 05/30/23 14:01 BMI result Body Mass Index 27.7 Const General: cooperative, healthy appearing and comfortable Nutritional Appearance: overweight Orientation/consciousness: patient oriented x3 Limitations: no limitations HEENT Head: Yes normocephalic and Yes atraumatic Mouth: moist mucous membranes Resp Effort & Inspection: normal respiratory effort and able to speak in complete sentences Skin General skin exam: no rashes or lesions noted and dry skin Neuro General: patient oriented x3 Extrem Other: Osteoarthritic changes of both hands with no active synovitis Normal range of motion of hands without pain. Normal range of motion of knees and hips without pain. Results Reviewed Results Reviewed: Laboratory Tests 11/06/21 11/16/21 07/25/22 11:22 Unknown 12:31 10/17/22 11/16/21 n Date of Service: 09/26/22 Procedure(s): XR DEXA axial skeleton Accession Number(s): [id number] EXAMINATION: BONE DENSITOMETRY CLINICAL INDICATION: Other specified personal risk factors, not elsewhere classified. COMPARISON: Baseline BD dated 09/22/2020. TECHNIQUE: Using a [employer] DXA System (software version: 13.1) manufactured by [employer], dual-energy x-ray absorptiometry was performed of the lumbar spine and left hip. The images are of good technical quality. Summary results are attached. FINDINGS: AP SPINE L1-L2 (excluding L3 and L4): The data of L1-L4 has been changed to exclude the L3 and L4 vertebral bodies, because degenerative changes at these levels may cause overestimation of lumbar spine density. Current: BMD 1.521 g/cm2, Z-score 3.6, T-score 2.7, normal, 5.0% increase from baseline (<5% change is not significant). Baseline: BMD 1.449 g/cm2. LEFT FEMUR, NECK: Current: BMD 0.752 g/cm2, Z-score -0.7, T-score -2.4, osteopenia. Baseline: BMD 0.834 g/cm2. LEFT FEMUR, TOTAL: Current: BMD 0.965 g/cm2, Z-score 0.4, T-score -0.9, normal, 3.2% decrease from baseline (<5% change is not significant). Baseline: BMD 0.997 g/cm2. IDENTIFIED RISK FACTORS: Height loss, glucocorticoids (chronic). HISTORY OF FRACTURE: None listed. MEDICATIONS: Multivitamin, vitamin D, bisphosphonate. MM/XR DEXA axial skeleton IMPRESSION: 1. DIAGNOSIS: Osteopenia based on the lowest T-score value of -2.4 in the femoral neck applying World Health Organization criteria.? ? Assessment & Plan Assessment & Plan (1) Polymyalgia rheumatica: Comment: Initial presentation of bilateral shoulder pain.? Serology with markedly elevated ESR and CRP.? Started on 10 mg prednisone daily in September 2020 with dramatic response in his symptoms.? He has now successfully tapered off prednisone since 07/2021. No recurrence of PMR symptoms. Code(s): M35.3 - Polymyalgia rheumatica Plan: No recurrence of PMR symptoms. Reviewed with patient that it appears his polymyalgia rheumatica is in remission. He is aware to contact the clinic with any return of bilateral shoulder or hip girdle pain. Follow-up in 12 months (2) Cyclic citrullinated peptide (CCP) antibody positive: Code(s): R79.89 - Other specified abnormal findings of blood chemistry Plan: Weak positive.? In some instances, polymyalgia rheumatica can be an initial presentation of rheumatoid arthritis.? Patient has been off prednisone for almost 2 years with no synovitis. (3) Osteopenia: Comment: Long-term use of steroids. Bone density 09/2020 with osteopenia, but high FRAX score. Started on alendronate September 2020- present Code(s): M85.80 - Other specified disorders of bone density and structure, unspecified site Plan: DEXA from 10/03 with Osteopenia T-score -1.8 in the femoral neck.? Major osteoporotic fracture 16.1%.? Hip fracture 7.1%. Patient on Alendronate weekly started September 2020. Updated DEXA with osteopenia T-score -2.4 in the femoral neck.? Interval changes are not significant when compared to baseline.? DEXA is stable.? Vitamin-D is stable. Will continue alendronate. Continue calcium and vitamin-D. Repeat DEXA in 2024 Plan I spent 26 minutes reviewing patient's chart, evaluating patient, counseling patient and documenting in the chart Coding Level of Care Code Est Pt Level 3 (78123) Diagnoses Polymyalgia rheumatica M35.3 Cyclic citrullinated peptide (CCP) antibody positive R79.89 Osteopenia M85.80
[2023-05-30 14:01] VITALS: BP 102/58; PULSE 73; TEMP 36.6; O2SAT 96; BMI 27.7
== END 2023-05-30 14:32 | disposition home or self-care (01) ==
PROVIDERS: PCP Internal Medicine; Visit Provider Student in an Organized Health Care Education/Training Program
DX: M35.3 Polymyalgia rheumatica (principal); R79.89 Other specified abnormal findings of blood chemistry; M85.80 Other specified disorders of bone density and structure, unspecified site
CPT/HCPCS: 99213

== ENCOUNTER → 2023-05-30 13:43 | Outpatient (BNVA) | payer MEDICARE, OTHER, SELFPAY | PROVIDERS: PCP Internal Medicine; Visit Provider Student in an Organized Health Care Education/Training Program | DX: M35.3 Polymyalgia rheumatica (principal); M85.80 Other specified disorders of bone density and structure, unspecified site; R79.89 Other specified abnormal findings of blood chemistry | CPT/HCPCS: 99212 ==

== ENCOUNTER 2023-06-24 04:32 | Inpatient (IN) | payer MEDICARE, OTHER, SELFPAY ==
[2023-06-24] VITALS (12 sets, daily range): BP systolic 100–167; BP diastolic 44–75; PULSE 63–94; RESP 13–20; TEMP 36.2–37.1; O2SAT 92–97; BMI 25.8
--- NOTE | ~2023-06-24 | CT_ITS ---
EXAMINATION: CT angio head neck CLINICAL INFORMATION: Abnormal CT scan of the head. COMPARISON: CT scan of the head 06/24/2023. TECHNIQUE: Courier Delivery Driver images were obtained. A CT angiogram of the head and neck was performed in the arterial phase after the intravenous administration of 70 mL Omnipaque 350. Delayed postcontrast images of the head were also obtained. 3D images were processed on an independent workstation under concurrent supervision. Arterial stenoses are measured in accordance with NASCET criteria or similar method if applicable. This CT examination was performed using dose optimization techniques as appropriate, including one or more of the following: Automated exposure control, iterative reconstruction, and adjustment of technique factors (mA and/or kVp) according to patient size (this includes techniques or standardized protocols for targeted exams where dose is matched to indication/reason for exam). Fleischner Society criteria for the followup of incidental pulmonary nodules was implemented if appropriate. Total exam dose-length product 1362 mGy-cm FINDINGS: Head: Again there is loss of macias-white matter differentiation within the right cerebral hemisphere at the junction of the temporal and occipital lobes best visualized on axial image 22 of 50 series 13. These findings are most consistent with acute infarct within the vascular territory of the right middle cerebral artery. Macias-white matter differentiation is otherwise preserved. Symmetric calcifications within the cerebellum are noted stable from prior imaging. Postcontrast images reveal no abnormal intracranial mass or enhancement. No intracranial mass effect or hydrocephalus. The calvarium and skull base are intact.. Trace mastoid effusions. Mild paranasal sinus disease primarily affecting the alveolar recesses of the maxillary sinuses. Globes and orbits are grossly symmetric. CT angiogram neck: Scattered atheromatous calcification involves the aortic arch apex. Origins of the major aortic branches are widely patent. Common carotid arteries are patent. Partially calcified atheromatous plaque involves both carotid bifurcations. No stenosis of the extracranial internal carotid arteries. The cervical segments of the vertebral arteries are patent. CT angiogram head: Atheromatous calcification involves the cavernous segments of both internal carotid arteries. Intracranial internal carotid arteries are otherwise patent. The intradural vertebral artery segments and basilar artery are patent. Anterior, middle, and posterior cerebral complexes are unremarkable. No intracranial large vessel occlusion. No identifiable aneurysm or high flow vascular lesion. The timing of the contrast injection provides adequate opacification of the dural venous sinuses which are patent. Other: Soft tissues of the neck including the thyroid gland are unremarkable. Grossly no pathologically enlarged cervical lymph nodes. There is centrilobular emphysema and pleural parenchymal scarring at the apices of both lungs. No acute osseous finding. Specifically no worrisome lytic or blastic osseous lesion. Grossly no spinal canal compromise. CT/CT angio head neck IMPRESSION: There is an acute infarct within the vascular territory of the right middle cerebral artery. No new infarct or hemorrhage. No abnormal intracranial mass or enhancement. Partially calcified atheromatous plaque involves both carotid bifurcations and the cavernous segments of both internal carotid arteries. No stenosis of the cervical carotid or vertebral arteries. No intracranial large vessel occlusion.
--- NOTE | ~2023-06-24 | CT_ITS ---
EXAMINATION: CT OF THE HEAD WITHOUT CONTRAST CT OF THE CERVICAL SPINE WITHOUT CONTRAST CLINICAL INFORMATION: Syncope with head strike.. COMPARISON: CT scan of the head dated 11/06/2021. TECHNIQUE: Contiguous axial imaging was performed from the skullbase to vertex without intravenous administration of contrast. Coronal reformations of the head were obtained. Contiguous axial imaging was then performed from the skull base down to the thoracic inlet. Coronal and sagittal reformations of the cervical spine were obtained. This CT examination was performed using dose optimization techniques as appropriate, variously including the following: *Automated exposure control *Adjustment of mA and/or kV according to patient size (this includes techniques or standardized protocols for targeted exams where dose is matched to indication/reason for exam; i.e. extremities or head) *Use of iterative reconstruction technique DLP: 1019.45 mGy-cm. FINDINGS: CT scan of the head: There is no evidence of acute intracranial hemorrhage. Chronic calcific densities are seen in the cerebellum. There is interval development of an area of hypodensity and encephalomalacia in the posterior right parietal lobe in the distribution of the right middle cerebral artery, consistent with the subacute infarct, though an acute component cannot be excluded. No abnormal mass-effect or midline shift is seen. No extra-axial fluid collections are identified. The ventricles and sulci are enlarged. There is prominent periventricular and deep white matter low-attenuation seen, consistent with ischemic small vessel disease. Calcifications of the vertebrobasilar arteries and carotid siphons noted. The osseous structures and soft tissues are normal. No scalp hematoma noted. Mild mucosal thickening of the maxillary sinuses is seen. There is nasal septal deviation toward the right side with the small nasal spur projecting into the inferior right nasal cavity. The mastoid air cells and visualized portions of the paranasal sinuses are well-aerated. CT scan of the cervical spine: There is an exaggeration of the normal cervical lordosis, possibly positional. No evidence of acute fracture or dislocation. Craniocervical junction and atlantoaxial articulations are intact with advanced degenerative spurring and cystic changes seen. There is prominent soft tissue and ligamentous thickening seen involving the alar ligaments and the cruciate ligaments of the atlas posterior to the dense, indenting the spinal canal without significant mass effect upon the cord. Prevertebral soft tissues are normal in thickness. There is relative preservation of the disc space height at all levels. Prominent posterior marginal spur formation at C3-C4 is noted, projecting into the spinal canal and causing mild spinal stenosis. Mild posterior disc bulge and ligamentous calcifications are seen at C6-C7, projecting into the thecal sac without significant spinal stenosis. There is moderate facet arthropathy seen bilaterally throughout the cervical spine. There is prominent biapical pleural-based reticular nodular scarring and emphysematous change seen. Atherosclerotic calcifications of the aortic arch and great vessels are noted. The included soft tissues of the neck and lung apices are unremarkable. CT/CT cervical spine wo IV con IMPRESSION: CT SCAN OF THE HEAD: * No acute intracranial intracranial hemorrhage. * Interval development of an area of hypodensity and encephalomalacia in the posterior right parietal lobe in the distribution of the right middle cerebral artery, consistent with subacute infarct, though an acute component cannot be excluded. Consider further evaluation with MRI scan. * Prominent findings of ischemic small vessel disease. * Mild maxillary sinus disease. CT SCAN OF THE CERVICAL SPINE: * No evidence of cervical spine fracture or malalignment. * Prominent degenerative changes in the cervical spine as discussed above. This result was discussed with Dr. Bravo 06/24/2023, 8:05 AM and it was ascertained that the content and urgency of this report was understood at the time of direct communication.
--- NOTE | 2023-06-24 05:00 | PC.NURSE ---
Addendum entered by Emir Monroe 06/24/23 05:01: pt denies cp/sob. lung sounds cta. Original Note: pt has hx emphysema. sats usually not as low as presenting in ED 88-90% on RA. pt placed on 2L NC. sats 92% on 2L.
--- NOTE | 2023-06-24 05:05 | ECG_ITS ---
Test Reason : SYNCOPE Blood Pressure : / mmHG Vent. Rate : 064 BPM Atrial Rate : 064 BPM P-R Int : 268 ms QRS Dur : 098 ms QT Int : 466 ms P-R-T Axes : 040 -23 027 degrees QTc Int : 480 ms Sinus rhythm with 1st degree A-V block Inferior infarct (cited on or before 28-JAN-2018) Anteroseptal infarct (cited on or before 15-SEP-2012) Abnormal ECG When compared with ECG of 06-NOV-2021 11:08, No significant changes seen Referred By: Theresa Ferguson Electronically Signed By:NELSON CAMPO
[2023-06-24 05:39] LABS: MANUAL DIFF FLAG NO
[2023-06-24 05:41] LABS: Basophils Absolute Auto 0.1 X10*3/uL (0.0-0.2); Basophils Percent Auto 0.8 % (0-2); Eosinophils Absolute Auto 0.3 X10*3/uL (0.0-0.4); Eosinophils Percent Auto 4.1 % (0-4); Hematocrit 36.6 % (42.0-52.0); Hemoglobin 12.8 g/dl (14.0-18.0); Imm Gran Abs Auto 0.03 X10*3/uL (0.00-0.03); Imm Gran Pct Auto 0.4 % (0.0-0.4); Lymphocytes Percent Auto 11.7 % (20-40); Mean Corpuscular Hemoglobin 32.4 pg (27.0-33.0); Mean Corpuscular Volume 92.7 fL (80.0-98.0); Mean Platelet Volume 8.7 fL (9.4-12.4); Monocytes Absolute Auto 0.9 X10*3/uL (0.1-1.2); Platelet Count 197 X10*3/uL (160-400); Red Blood Count 3.95 X10*6/uL (4.60-5.80); Red Cell Distribution Width 13.2 % (11.0-16.0); White Blood Count 8.3 X10*3/uL (4.8-10.8)
[2023-06-24 05:50] LABS: Prothrombin Time 12.1 SEC (11.1-13.3)
[2023-06-24 05:59] LABS: Alanine Aminotransferase 54 U/L (0-40); Albumin Level 3.6 g/dL (3.5-5.0); Alkaline Phosphatase 73 U/L (39-117); Anion Gap 13 (12-20); Aspartate Amino Transferase 34 U/L (5-37); Bilirubin Total 0.8 mg/dL (0.0-1.0); Blood Urea Nitrogen 11 mg/dL (9-16); Calcium 8.7 mg/dL (8.4-10.2); Carbon Dioxide 24 mmol/L (22-29); Chloride 98 mmol/L (96-108); Creatinine Clr Calc Pharmacy 59.7; Estimated Glomerular Filt Rate > 60; Glucose Random 173 mg/dL (60-115); Potassium 4.3 mmol/L (3.3-5.1); Sodium 131 mmol/L (135-145); Total Protein 6.5 g/dL (6.5-8.0)
[2023-06-24 06:02] LABS: Troponin-I High Sensitivity 3.2 ng/L (<3.5-35.0)
--- NOTE | 2023-06-24 06:18 | ED_ITS ---
HPI - Syncope General Chief Complaint: Syncope Stated Complaint: UNWITNESSED FALL Time Seen by Provider: 06/24/23 05:07 Source: patient and family () Mode of arrival: EMS History of Present Illness HPI narrative: 82-year-old male presents via EMS with an unwitnessed syncopal episode, the patient is able to provide some of the history and states that he got up and went to the kitchen to get some soda, dropped it, bent down and lack doubt . The states that she heard him fall and rest out and then called 911. Patient denies any shortness of breath, chest pain/palpitations in states that he has otherwise been feeling well. Patient is only on baby aspirin but does have a history of 2 prior episodes of vasovagal episodes. Patient does report some mild nausea. Related Data Home Medications Medication Instructions Recorded Confirmed allopurinol 100 mg tablet 100 mg PO DAILY 04/12/20 05/30/23 atorvastatin 40 mg tablet 40 mg PO BEDTIME 04/12/20 05/30/23 sacubitril 49 mg-valsartan 51 mg 1 tab PO BID 04/12/20 05/30/23 tablet (Entresto) aspirin 81 mg tablet,delayed 81 mg PO DAILY 08/18/20 05/30/23 release flu vacc [id number](65yr up)-PF 240 ml IM 08/18/20 05/30/23 mcg/0.7 mL intramuscular syringe nitroglycerin 0.4 mg sublingual 0 mg sublingual 08/18/20 05/30/23 tablet varicella-zoster glycoE [id number] 0.5 ml IM DIRECTED 08/18/20 05/30/23 adj(PF) 50 mcg/0.5 mL IM susp, kit calcium carbonate 500 mg calcium 500 mg PO DAILY 07/05/21 05/30/23 (1,250 mg) tablet (Calcium 500) fexofenadine 60 mg capsule 60 mg PO BID 05/30/22 05/30/23 multivitamin 1 tab PO DAILY 07/27/22 05/30/23 amiodarone 400 mg tablet 400 mg PO DAILY 03/13/23 05/30/23 Previous Rx's Medication Instructions Recorded ipratropium bromide 42 mcg (0.06 2 spray intranasal TID PRN allergy 05/30/22 %) nasal spray symptoms #15 mL fluticasone fur. 100 mcg-umeclid 1 ea PO DAILY #60 ea 06/16/22 62.5 mcg-vilant 25 mcg inhalat.powder (Trelegy Ellipta) tamsulosin 0.4 mg capsule 0.4 mg PO DAILY 90 days #90 caps 11/07/22 cholecalciferol (vitamin D3) 25 25 mcg PO DAILY #30 caps 01/03/23 mcg (1,000 unit) capsule (Vitamin D3) fluticasone 250 mcg-salmeterol 50 1 inh inhalation Q12H 30 days #60 05/03/23 mcg/dose blistr powdr for ea inhalation (Advair Diskus) fluticasone propionate 50 2 spray intranasal DAILY 30 days 05/03/23 mcg/actuation nasal #15.8 mL spray,suspension albuterol sulfate 90 mcg/actuation 2 puff inhalation Q6H PRN 05/05/23 aerosol inhaler shortness of breath or wheezing #6.7 grams benzonatate 100 mg capsule 100 mg PO BID PRN cough #14 caps 05/05/23 alendronate 70 mg tablet 70 mg PO QWEEK #12 tabs 05/21/23 Allergies Allergy/AdvReac Type Severity Reaction Status Date / Time No Known Allergies Allergy Verified 06/24/23 05:06 [No Known Allergies*] Review of Systems 2 Review of Systems: Pertinent positives and negatives as stated in HPI [facility] Past Medical History Source: nursing notes reviewed Medical History Pacemaker ILD (interstitial lung disease) Pulmonary nodules COPD (chronic obstructive pulmonary disease) Effusion, left knee Bursitis of right shoulder Medial meniscus tear Osteoarthritis of right knee Pes anserinus bursitis of right knee Effusion, right knee Surgical History History of carpal tunnel release History of cholecystectomy History of tonsillectomy History of colonoscopy Family History Family History Father No problems noted. Mother No problems noted. Son No problems noted. Social History Social History Household Members: Spouse Housing: Condominium Do you presently have visiting nurse or other home services: No Alcohol intake: current Alcohol intake frequency: does not drink Alcohol type: beer Patient Tobacco Use Status: Former Tobacco user Tobacco use type: Cigarette Years Smoked: 30 years Smoked in Last 30 Days: No Use of substances other than those prescribed or required for medical reasons: No Advance Directives: Yes Advance Directives Information Provided: Yes Advance Directives on File: No service: Yes Current occupational status: retired 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 Physical Exam 2 Vital Signs: Vital Signs: Last Vital Signs Temp 97.6 F 06/24/23 07:05 Pulse 70 06/24/23 07:05 Resp 15 06/24/23 07:05 BP 139/59 L 06/24/23 07:05 Pulse Ox 97 06/24/23 07:05 O2 Del Method Nasal Cannula 06/24/23 07:05 O2 Flow Rate 2 06/24/23 07:05 Oxygen Flow Rate 2 06/24/23 05:01 BMI result Body Mass Index 25.8 VITAL SIGNS: Reviewed. GENERAL: Well developed, well nourished, in no acute distress. HEAD: Normocephalic/atraumatic EYES: PERRLA, EOMI EARS: Ext canals without abnormality NOSE: Nares patent bilateral OROPHARYNX: no oral lesions noted, posterior pharynx clear, dental abscess suspected at the left lower jaw NECK: Supple, no adenopathy LUNGS: Normal breath sounds. No adventitious sounds or accessory muscle use. SpO2<97> on 1 L via nasal cannula; CHEST WALL: No tenderness to palpation, no deformity, no crepitus CARDIOVASCULAR: Regular rate and rhythm without noted murmurs, no JVD or lower extremity edema. ABDOMEN: Soft, non-tender, non-distended with bowel sounds. MUSCULOSKELETAL: No tenderness, deformities, or effusions noted on gross inspection. EXTREMITIES: No cyanosis, clubbing or edema. SKIN: Inspection of the skin reveals no rashes NEUROLOGIC: Alert and oriented x 3. Strength and sensation to light touch were grossly intact x 4. Medical Decision Making Medical Decision Making MDM Narrative: 82-year-old male with history and clinical presentation, DDX: Syncope and will rule out etiologies such as infection, anemia, electrolyte abnormalities, arrhythmia. In addition, will pursue CT of the head and C-spine. I reviewed all investigations and hematologic indices do not demonstrate any leukocytosis or left shift, there is a stable normocytic anemia and no thrombocytopenia. Coagulation studies are within normal limits. Chemistry indices demonstrate a mild hyponatremia but otherwise no ERIN or electrolyte disturbances, patient does have a mild elevation of ALT-54 and high sensitivity troponin is negligible at 3.2 without acute changes on EKG. Signed out to Dr James - f/u CT head/neck - UA - Admission for syncope - Will provide antibiotics for tooth abscess Differential Diagnosis Differential Diagnoses: The differential diagnosis associated with the presentation includes Please see the discussion above Admission/Observation Consideration of admission/observation: Escalation of care including admission/observation considered Please see the discussion above Lab Data MDM Lab Attestation statement: I reviewed the patient's lab results. Please see the discussion above 06/24/23 05:34 06/24/23 05:34 Labs: Lab Results 06/24/23 Range/Units 05:34 WBC 8.3 (4.8-10.8) X10*3/uL RBC 3.95 L (4.60-5.80) X10*6/uL Hgb 12.8 L (14.0-18.0) g/dl Hct 36.6 L (42.0-52.0) % MCV 92.7 (80.0-98.0) fL MCH 32.4 (27.0-33.0) pg MCHC 35.0 (31.0-36.0) g/dl RDW 13.2 (11.0-16.0) % Plt Count 197 (160-400) X10*3/uL MPV 8.7 L (9.4-12.4) fL Immature Gran % (Auto) 0.4 (0.0-0.4) % Neut % (Auto) 72.0 (45-73) % Lymph % (Auto) 11.7 L (20-40) % Chester % (Auto) 11.0 (2-11) % Eos % (Auto) 4.1 H (0-4) % Baso % (Auto) 0.8 (0-2) % Lymph # (Auto) 1.0 L (1.2-4.9) X10*3/uL Chester # (Auto) 0.9 (0.1-1.2) X10*3/uL Eos # (Auto) 0.3 (0.0-0.4) X10*3/uL Baso # (Auto) 0.1 (0.0-0.2) X10*3/uL Abs Immat Gran (auto) 0.03 (0.00-0.03) X10*3/uL Absolute Neuts (auto) 6.0 (2.0-8.3) x10*3/uL Absolute Nucleated RBC 0.000 (0.0-0.012) X10*3/uL Nucleated RBC % (auto) 0.0 (0.0-0.2) /100WBC PT 12.1 (11.1-13.3) SEC INR 1.0 (0.9-1.1) Hold Blue Top SEE NOTE Sodium 131 L (135-145) mmol/L Potassium 4.3 (3.3-5.1) mmol/L Chloride 98 (96-108) mmol/L Carbon Dioxide 24 (22-29) mmol/L Anion Gap 13 (12-20) BUN 11 (9-16) mg/dL Creatinine 0.86 (0.5-1.4) mg/dL Estim Creat Clear Calc 59.7 Estimated GFR > 60 Random Glucose 173 H (60-115) mg/dL Calcium 8.7 (8.4-10.2) mg/dL Total Bilirubin 0.8 (0.0-1.0) mg/dL AST 34 (5-37) U/L ALT 54 H (0-40) U/L Alkaline Phosphatase 73 (39-117) U/L Troponin I High Sens 3.2 (<3.5-35.0) ng/L Total Protein 6.5 (6.5-8.0) g/dL Albumin 3.6 (3.5-5.0) g/dL Independent Interpretation I performed an independent interpretation of an: EKG Interpretation: 0510: Sinus rhythm with first-degree AV block, HR-64, no STEMI, SC-to 68, QRS is within normal limits, QTC mildly prolonged. Discharge Plan Discharge Clinical Impression: Syncope, Dental abscess Patient Disposition: Still a Patient Prescriptions: No Action Trelegy Ellipta 100-62.5-25 mcg blister with device 1 ea PO DAILY Qty: 60 11RF multivitamin Tablet 1 tab PO DAILY Patient Comments: Calcium 1000 u Magnesium 400 u Zinc 25 u D3 600 u cholecalciferol (vitamin D3) [Vitamin D3] 25 mcg (1,000 unit) capsule 25 mcg PO DAILY Qty: 30 5RF alendronate 70 mg tablet 70 mg PO QWEEK Qty: 12 0RF benzonatate 100 mg capsule 100 mg PO BID PRN (Reason: cough) Qty: 14 0RF albuterol sulfate 90 mcg/actuation HFA aerosol inhaler 2 puff inhalation Q6H PRN (Reason: shortness of breath or wheezing) Qty: 6.7 0RF aspirin 81 mg tablet,delayed release (DR/EC) 81 mg PO DAILY nitroglycerin 0.4 mg tablet, sublingual 0 mg sublingual Shingrix (PF) 50 mcg/0.5 mL suspension for reconstitution 0.5 ml IM DIRECTED Fluzone HighDose Quad 20-21 PF 240 mcg/0.7 mL syringe IM Entresto 49-51 mg tablet 1 tab PO BID atorvastatin 40 mg tablet 40 mg PO BEDTIME allopurinol 100 mg tablet 100 mg PO DAILY tamsulosin 0.4 mg capsule 0.4 mg PO DAILY 90 Days Qty: 90 1RF calcium carbonate [Calcium 500] 500 mg calcium (1,250 mg) tablet 500 mg PO DAILY fexofenadine 60 mg capsule 60 mg PO BID ipratropium bromide 42 mcg (0.06 %) spray,non-aerosol 2 spray intranasal TID PRN (Reason: allergy symptoms) Qty: 15 6RF Rx Instructions: administer into each nostril amiodarone 400 mg tablet 400 mg PO DAILY fluticasone propion-salmeterol [Advair Diskus] 250-50 mcg/dose blister with device 1 inh inhalation Q12H 30 Days Qty: 60 11RF fluticasone propionate 50 mcg/actuation spray,suspension 2 spray intranasal DAILY 30 Days Qty: 15.8 11RF
--- NOTE | 2023-06-24 07:50 | PC.NURSE ---
oxygen level on room air ranges between 91-93 percent. denies any SOB at this time. history of emphysema
[2023-06-24] MEDS: Penicillin V Potassium 250 MG TABLET 500 MG PO (08:14)
[2023-06-24 08:36] LABS: Appearance Urine Clear; Color Urine Yellow; Glucose Urine UA Negative (Negative); Leukocyte Esterase Urine Negative (Negative); Nitrite Urine Negative (Negative); Specific Gravity - Urine 1.015 (1.005-1.025); Urine Blood Negative (Negative); Urine Ketones Negative (Negative); Urine Protein Negative (Neg-Trace)
--- NOTE | 2023-06-24 08:38 | MHC.EDTECH ---
T/w ambulated with Pt to bathroom. Pt provided urine sample. Pt stated to t/w he felt good , no dizziness/lightheadedness/feeling like he is going to pass out. Pt back in bed, warm blankets given, call hernadez within reach. Urine sample sent to lab.
[2023-06-24 08:52] LABS: Estimated Average Glucose 120 mg/dL; Hemoglobin A1c % 5.8 % (<6.0)
[2023-06-24] MEDS: Enoxaparin Sodium 30 MG/0.3 ML SYRINGE SUBCUT (09:33)
--- NOTE | 2023-06-24 09:52 | PM.NEUROCN ---
History of Present Illness Data of Consult Service Date: 06/24/23 Primary Care Provider: Royal Pierre MD HPI Reason for consult: Syncope 82 years old man with underlying history of prostate cancer was having left-sided dental pain thinking that he might have infection. A called his dentist yesterday and was given a prescription of antibiotic but he was not able to obtain it. At 1 point he took a dose of tramadol. Few hours after, he was standing beside is refrigerator taking a drink when the bottle fell. He might have loss control of the paddle. He saw the liquid on the floor and tried to clean and. Then something happened any fell down and passed out. He did not have recollection of that. His heard the noise and came and helped him. When he came artifact, he recognized his . Review of Systems Review of Systems: Recent left-sided dental pain and exposure to tramadol PMFSH Past Medical History Medical History Pacemaker ILD (interstitial lung disease) Pulmonary nodules COPD (chronic obstructive pulmonary disease) Effusion, left knee Bursitis of right shoulder Medial meniscus tear Osteoarthritis of right knee Pes anserinus bursitis of right knee Effusion, right knee Family History Family History Father No problems noted. Mother No problems noted. Son No problems noted. Surgical History Surgical History History of carpal tunnel release History of cholecystectomy History of tonsillectomy History of colonoscopy Social History Social History Household Members: Spouse Housing: [facility] Do you presently have visiting nurse or other home services: No Alcohol intake: current Alcohol intake frequency: does not drink Alcohol type: beer Patient Tobacco Use Status: Former Tobacco user Tobacco use type: Cigarette Years Smoked: 30 years Smoked in Last 30 Days: No Use of substances other than those prescribed or required for medical reasons: No Advance Directives: Yes Advance Directives Information Provided: Yes Advance Directives on File: No Nutrition Risks: No Nutritional Risk service: Yes Current occupational status: retired 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 Allergies Allergy/AdvReac Type Severity Reaction Status Date / Time No Known Allergies Allergy Verified 06/24/23 05:06 [No Known Allergies*] Active Medications: Current Medications Acetaminophen (Acetaminophen 325 Mg Tablet) 650 mg PO Q6H PRN PRN Reason: Pain, Mild (Pain Scale 1-3) Enoxaparin Sodium (Enoxaparin Sodium 30 Mg/0.3 Ml Syringe) 30 mg SUBCUT Q24H [facility] Last Admin: 06/24/23 09:33 Dose: 30 mg Magnesium Hydroxide (Milk Of Magnesia 30 Ml Oral.Susp) 30 ml PO DAILY PRN PRN Reason: Constipation Melatonin (Melatonin 3 Mg Tablet) 3 mg PO BEDTIME PRN PRN Reason: Insomnia Ondansetron HCl (Ondansetron Hcl 4 Mg/2 Ml Vial) 4 mg IVPUSH Q8H PRN PRN Reason: Nausea and Vomiting Sodium Chloride (0.9 % Sodium Chloride Flush 3 Ml Syringe) 3 ml IVFLUSH QSHIFT [facility] Home Medications Medication Instructions Recorded Confirmed Last Taken Type allopurinol 100 mg tablet 100 mg PO DAILY 04/12/20 05/30/23 07/05/20 History atorvastatin 40 mg tablet 40 mg PO BEDTIME 04/12/20 05/30/23 07/04/20 History sacubitril 49 mg-valsartan 51 mg 1 tab PO BID 04/12/20 05/30/23 07/05/20 History tablet (Entresto) aspirin 81 mg tablet,delayed 81 mg PO DAILY 08/18/20 05/30/23 Unknown History release nitroglycerin 0.4 mg sublingual 0 mg sublingual 08/18/20 05/30/23 Unknown History tablet calcium carbonate 500 mg calcium 500 mg PO DAILY 07/05/21 05/30/23 Unknown History (1,250 mg) tablet (Calcium 500) fexofenadine 60 mg capsule 60 mg PO BID 05/30/22 05/30/23 Unknown History multivitamin 1 tab PO DAILY 07/27/22 05/30/23 Unknown History amiodarone 400 mg tablet 400 mg PO DAILY 03/13/23 05/30/23 Unknown History Physical Exam Vital Signs: Vital Signs: Last Vital Signs Temp 98.3 F 06/24/23 09:40 Pulse 70 06/24/23 09:40 Resp 13 06/24/23 09:40 BP 153/67 H 06/24/23 09:40 Pulse Ox 94 06/24/23 09:40 O2 Del Method Room Air 06/24/23 09:40 O2 Flow Rate 2 06/24/23 07:05 Oxygen Flow Rate 2 06/24/23 05:01 BMI result Body Mass Index 25.8 Neuro: Other: He is alert and awake with normal spontaneity of speech fluency comprehension and affect. There is mild left-sided facial flatness and swelling around the job. Otherwise visual toussaint are full intact. Extraocular muscles are intact. There is no 5 pronator drift. [id number]-rv-[id number] testing is normal. Deep tendon reflexes are 1+ with equivocal plantars. Speech is normal. Results Labs 06/24/23 05:34 06/24/23 05:34 Labs: Short CBC 06/24/23 Range/Units 05:34 WBC 8.3 (4.8-10.8) X10*3/uL Hgb 12.8 L (14.0-18.0) g/dl Hct 36.6 L (42.0-52.0) % Plt Count 197 (160-400) X10*3/uL BMP 06/24/23 05:34 Sodium 131 L Potassium 4.3 Chloride 98 Carbon Dioxide 24 BUN 11 Creatinine 0.86 Calcium 8.7 Liver Function 06/24/23 Range/Units 05:34 Total Bilirubin 0.8 (0.0-1.0) mg/dL AST 34 (5-37) U/L ALT 54 H (0-40) U/L Alkaline Phosphatase 73 (39-117) U/L Albumin 3.6 (3.5-5.0) g/dL Urine 06/24/23 Range/Units 08:29 Urine Color Yellow Urine Appearance Clear Urine pH 7.0 (5.0-9.0) Ur Specific [place] 1.015 (1.005-1.025) Urine Protein Negative (Neg-Trace) mg/dL Urine Glucose (UA) Negative (Negative) mg/dL Head CT revealed moderately severe diffuse cerebral atrophy bilateral cerebellar calcification and a right parieto-occipital cortical lesion with mixed density suggestive of either subacute infarct or a lesion with vasogenic edema Assessment and Plan (1) Syncope: Qualifiers: Syncope type: unspecified Qualified Code(s): R55 - Syncope and collapse Status: Acute 82 years old man with a syncopal episode that might have been a seizure. His head CT revealed a lesion that could be subacute infarct but could also be a metastatic lesion. Ideally an MRI of brain with and without contrast is recommended if that would be possible with his cardiac unit. If not CT scan of brain with contrast is recommended. Procedures Date of Service Date of Service: 06/24/23
[2023-06-24 09:58] LABS: COVID-19 Test Negative (Negative); IDNOW Serial# 6674DD1D
--- NOTE | 2023-06-24 10:13 | PHA.MEDREC ---
Pharmacy Consult ? Medication Reconciliation Pharmacy has completed the medication reconciliation. Patient had list. Of note, patient is no longer on trelegy and only takes 200 mg of amiodarone. Patient endorses he WAS on 400mg, but after his pacemaker was placed, was advised to start 200mg daily. [employer] forgot to send in script, so patient cuts tablet in half
--- NOTE | 2023-06-24 10:40 | PM.CNCAR ---
History of Present Illness History of Present Illness Date of Service: 06/24/23 Chief complaint: Syncope Subacute to Acute Stroke Narrative: This is a cardiology consultation regarding syncopal episode. Patient was in the kitchen and it seems that he dropped something and try to bend down and then he was on the ground. Almost looks like blood pressure went down and then he fell. However, he does not have any further symptoms from cardiac including chest pain or shortness of breath or in fact anything cardiac sounding. Probably history of cardiomyopathy but unclear details. He has had a pacemaker for a long time but few weeks back, it was converted to ICD but unknown details. Review of Systems Review of Systems: Yes all other systems are reviewed and are negative Constitutional: Constitutional: Reports as per HPI and Reports no additional constitutional complaints Eyes: Eyes: Reports as per HPI and Denies no additional eye complaints ENT: Denies system reviewed and no additional complaints, except as documented and Reports as per HPI Cardiovascular: Cardiovascular: Reports as per HPI, Reports no additional cardiovascular complaints, Denies acrocyanosis, Denies cool extremities, Denies chest pain, Denies leg edema, Reports lightheadedness, Denies palpitations and Denies dyspnea Respiratory: Respiratory: Reports as per HPI, Denies no additional respiratory complaints and Denies dyspnea Gastrointestinal: Gastrointestinal: Reports as per HPI and Denies no additional gastrointestinal complaints Genitourinary: Genitourinary: Reports no additional male genitourinary complaints and Reports as per HPI Musculoskeletal: Musculoskeletal: Reports no additional musculoskeletal complaints and Reports as per HPI Integumentary/Breasts: Skin/Breast: Reports system reviewed and no additional complaints, except as docu Neurologic: Reports system reviewed and no additional complaints, except as documented and Reports as per HPI Psychiatric: Psychiatric: Reports no additional psychiatric complaints and Reports as per HPI Endocrine: Endocrine: Reports no additional endocrine complaints, Reports as per HPI and Denies palpitations Hematologic/Lymphatic: Hematologic/Lymphatic: Reports no additional hematologic/lymphatic complaints and Reports as per HPI Allergic/Immunologic: Allergic/Immunologic: Reports no additional allergic/immunologic complaints and Reports as per HPI [facility] Past Medical History Medical History Pacemaker ILD (interstitial lung disease) Pulmonary nodules COPD (chronic obstructive pulmonary disease) Effusion, left knee Bursitis of right shoulder Medial meniscus tear Osteoarthritis of right knee Pes anserinus bursitis of right knee Effusion, right knee Family History Family History Father No problems noted. Mother No problems noted. Son No problems noted. Surgical History Surgical History History of carpal tunnel release History of cholecystectomy History of tonsillectomy History of colonoscopy Social History Social History Household Members: Spouse Housing: [facility] Do you presently have visiting nurse or other home services: No Alcohol intake: current Alcohol intake frequency: does not drink Alcohol type: beer Patient Tobacco Use Status: Former Tobacco user Tobacco use type: Cigarette Years Smoked: 30 years Smoked in Last 30 Days: No Use of substances other than those prescribed or required for medical reasons: No Advance Directives: Yes Advance Directives Information Provided: Yes Advance Directives on File: No Nutrition Risks: No Nutritional Risk service: Yes Current occupational status: retired 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 [employer] Allergies Allergy/AdvReac Type Severity Reaction Status Date / Time No Known Allergies Allergy Verified 06/24/23 05:06 [No Known Allergies*] Active Medications: Current Medications Acetaminophen (Acetaminophen 325 Mg Tablet) 650 mg PO Q6H PRN PRN Reason: Pain, Mild (Pain Scale 1-3) Albuterol Sulfate (Albuterol Sulfate 90 Mcg 8 Gm Inhaler) 2 puff INHALE Q6H PRN PRN Reason: shortness of breath or wheezing Allopurinol (Allopurinol 100 Mg Tablet) 100 mg PO DAILY [facility] Amiodarone HCl (Amiodarone Hcl 200 Mg Tablet) 200 mg PO DAILY [facility] Amoxicillin/Clavulanate Potassium (Amoxicillin/Potassium Clav 500 Mg Tablet) 500 mg PO BID [facility] Aspirin (Aspirin Enteric Coated 81 Mg Tablet.Dr) 81 mg PO DAILY [facility] Atorvastatin Calcium (Atorvastatin Calcium 40 Mg Tablet) 40 mg PO BEDTIME [facility] Calcium Carbonate (Calcium Carbonate 500 Mg Tablet) 500 mg PO DAILY [facility] Enoxaparin Sodium (Enoxaparin Sodium 30 Mg/0.3 Ml Syringe) 30 mg SUBCUT Q24H [facility] Last Admin: 06/24/23 09:33 Dose: 30 mg Fluticasone Propionate (Fluticasone Propionate Nasal 16 Gm [place]) 2 spray NOSTRIL-B DAILY [facility] Magnesium Hydroxide (Milk Of Magnesia 30 Ml Oral.Susp) 30 ml PO DAILY PRN PRN Reason: Constipation Melatonin (Melatonin 3 Mg Tablet) 3 mg PO BEDTIME PRN PRN Reason: Insomnia Multivitamins/Vitamin C (Multivitamin Tablet) 1 tab PO DAILY [facility] Non-Formulary Medication (Alendronate) 70 mg PO SA [facility] Non-Formulary Medication (Fluticasone Propion-Salmeterol [Advair Diskus]) 1 inhalation INHALE Q12H [facility] Ondansetron HCl (Ondansetron Hcl 4 Mg/2 Ml Vial) 4 mg IVPUSH Q8H PRN PRN Reason: Nausea and Vomiting Sacubitril/Valsartan (Sacubitril/Valsartan 49/51 1 Tab Tablet) 1 tab PO BID [facility]; Protocol Sodium Chloride (0.9 % Sodium Chloride Flush 3 Ml Syringe) 3 ml IVFLUSH QSHIFT [facility] Tamsulosin HCl (Tamsulosin Hcl 0.4 Mg Capsule) 0.4 mg PO BEDTIME [facility] Vitamin D (Cholecalciferol (Vitamin D3) 25 Mcg Tablet) 25 mcg PO DAILY [facility] Home Medications Medication Instructions Recorded Confirmed Last Taken Type allopurinol 100 mg tablet 100 mg PO DAILY 04/12/20 06/24/23 06/23/23 History atorvastatin 40 mg tablet 40 mg PO BEDTIME 04/12/20 06/24/23 06/23/23 History sacubitril 49 mg-valsartan 51 mg 1 tab PO BID 04/12/20 06/24/23 06/23/23 History tablet (Entresto) aspirin 81 mg tablet,delayed 81 mg PO DAILY 08/18/20 06/24/23 06/23/23 History release calcium carbonate 500 mg calcium 500 mg PO DAILY 07/05/21 06/24/23 06/23/23 History (1,250 mg) tablet (Calcium 500) multivitamin 1 tab PO DAILY 07/27/22 06/24/23 06/23/23 History amiodarone 400 mg tablet 200 mg PO DAILY 03/13/23 06/24/23 06/23/23 History alendronate 70 mg tablet 70 mg PO SA 06/24/23 06/24/23 06/23/23 History tamsulosin 0.4 mg capsule 0.4 mg PO BEDTIME 06/24/23 06/24/23 06/23/23 History Physical Exam Vital Signs: Vital Signs: Last Vital Signs Temp 97.2 F 06/24/23 10:26 Pulse 72 06/24/23 10:26 Resp 18 06/24/23 10:26 BP 167/75 H 06/24/23 10:26 Pulse Ox 93 06/24/23 10:26 O2 Del Method Room Air 06/24/23 10:26 O2 Flow Rate 2 06/24/23 07:05 Oxygen Flow Rate 2 06/24/23 05:01 BMI result Body Mass Index 25.8 Const: General: comfortable and no acute distress Orientation/consciousness: patient oriented x3 HEENT: Other: Unremarkable Head: Yes normal to inspection Neck: Neck: Yes normal visual inspection Chest: Chest palpation & inspection: normal inspection of the chest Resp: Auscultation: clear to auscultation bilaterally Cardio: Palpation: normal PMI Heart sounds: S1 normal heart sound present, S2 normal heart sound present, no gallops, no murmurs and no rubs GI: Palpation (GI): Soft to palpation Back/Spine/Pelvis: Other: unremarkable Skin: General skin exam: no rashes or lesions noted Neuro: General: patient oriented x3 Extrem: General: Yes normal to inspection Psych: Mental Status: mental status grossly normal Objective Labs and Meds 06/24/23 05:34 06/24/23 05:34 Lab results: Laboratory Results - last 24 hr 06/24/23 06/24/23 06/24/23 05:34 08:29 09:36 WBC 8.3 RBC 3.95 L Hgb 12.8 L Hct 36.6 L MCV 92.7 MCH 32.4 MCHC 35.0 RDW 13.2 Plt Count 197 MPV 8.7 L Immature Gran % (Auto) 0.4 Neut % (Auto) 72.0 Lymph % (Auto) 11.7 L [place] % (Auto) 11.0 Eos % (Auto) 4.1 H Baso % (Auto) 0.8 Lymph # (Auto) 1.0 L [place] # (Auto) 0.9 Eos # (Auto) 0.3 Baso # (Auto) 0.1 Abs Immat Gran (auto) 0.03 Absolute Neuts (auto) 6.0 Absolute Nucleated RBC 0.000 Nucleated RBC % (auto) 0.0 PT 12.1 INR 1.0 Hold Blue Top SEE NOTE Sodium 131 L Potassium 4.3 Chloride 98 Carbon Dioxide 24 Anion Gap 13 BUN 11 Creatinine 0.86 Estim Creat Clear Calc 59.7 Estimated GFR > 60 Random Glucose 173 H Estimat Average Glucose 120 Hemoglobin A1c % 5.8 Calcium 8.7 Total Bilirubin 0.8 AST 34 ALT 54 H Alkaline Phosphatase 73 Troponin I High Sens 3.2 Total Protein 6.5 Albumin 3.6 Urine Color Yellow Urine Appearance Clear Urine pH 7.0 Ur Specific [place] 1.015 Urine Protein Negative Urine Glucose (UA) Negative Urine Ketones Negative Urine Blood Negative Urine Nitrite Negative Ur Leukocyte Esterase Negative COVID-19 ([facility]) Negative COVID-19 Clin Com See Note ECG Interpretation: EKG with sinus rhythm at 64/Min; DC prolongation to 260 millisecond; 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 Imaging Radiologist's impression: Impressions Cervical Spine CT 06/24/23 06:00 IMPRESSION: CT SCAN OF THE HEAD: * No acute intracranial intracranial hemorrhage. * Interval development of an area of hypodensity and encephalomalacia in the posterior right parietal lobe in the distribution of the right middle cerebral artery, consistent with subacute infarct, though an acute component cannot be excluded. Consider further evaluation with MRI scan. * Prominent findings of ischemic small vessel disease. * Mild maxillary sinus disease. CT SCAN OF THE CERVICAL SPINE: * No evidence of cervical spine fracture or malalignment. * Prominent degenerative changes in the cervical spine as discussed above. This result was discussed with Dr. Bravo 06/24/2023, 8:05 AM and it was ascertained that the content and urgency of this report was understood at the time of direct communication. Head CT 06/24/23 06:00 IMPRESSION: CT SCAN OF THE HEAD: * No acute intracranial intracranial hemorrhage. * Interval development of an area of hypodensity and encephalomalacia in the posterior right parietal lobe in the distribution of the right middle cerebral artery, consistent with subacute infarct, though an acute component cannot be excluded. Consider further evaluation with MRI scan. * Prominent findings of ischemic small vessel disease. * Mild maxillary sinus disease. CT SCAN OF THE CERVICAL SPINE: * No evidence of cervical spine fracture or malalignment. * Prominent degenerative changes in the cervical spine as discussed above. This result was discussed with Dr. Bravo 06/24/2023, 8:05 AM and it was ascertained that the content and urgency of this report was understood at the time of direct communication. Assessment and Plan (1) Syncope: Qualifiers: Syncope type: unspecified Qualified Code(s): R55 - Syncope and collapse Status: Acute (2) Cardiomyopathy: Status: Acute (3) Presence of implantable cardioverter-defibrillator (ICD): Status: Acute Plan High sensitivity troponin within normal limits. CT head findings reviewed and also discussed with neurology. Possible stroke versus malignant type finding. He is recommending further imaging. From cardiac, will get an echocardiogram. ICD rep has already been called. Will need to review old records from his visiting teacher. Discussed with son at bedside. Discussed with neurologist as well as Dr. Mei. Procedures Date of Service Date of Service: 06/24/23
[2023-06-24] MEDS: Sacubitril/Valsartan 49/51 1 TAB TABLET PO ×2 (11:55→20:54)
[2023-06-24] MEDS: allopurinoL 100 MG TABLET PO (11:55)
[2023-06-24] MEDS: Aspirin Enteric Coated 81 MG TABLET.DR PO (11:55)
[2023-06-24] MEDS: Cholecalciferol (Vitamin D3) 25 MCG TABLET PO (11:56)
[2023-06-24] MEDS: Amiodarone HCL 200 MG TABLET PO (11:56)
[2023-06-24] MEDS: Multivitamin TABLET 1 TAB PO (11:56)
--- NOTE | 2023-06-24 12:21 | P.HPHOSP_ITS ---
History of Present Illness Date of Service: 06/24/23 Chief Complaint: Episode of passing out 82 year male with suspected history of bradycardia and had pacemaker for years and recently was coverted to AICD at [facility] about 2 months agao, no details available , and is on amiodarone, history of prostate cancer, history osteoporosis, HLD. Recently he has been suffering from a toothache and was to be prescribed Abx but the pharmacy was closed, however he took Tramadol for the pain. Around 330 this morning, he got up to get a soda, he later dropped it and when attempted to pick it up from the floor, he passed out and was on his knees and doesn't believe that he hit his head. His was there promptly and he 911 was called and he was brought to the hospital. ECG showed no acute ischemic changes, orthostatic BP was within normal, a CT of cervical spine show no fracture, CT of brain show Interval development of an area of hypodensity and encephalomalacia in the posterior right parietal lobe in the distribution of the right middle cerebral artery, consistent with subacute infarct, though an acute component cannot be excluded He has been evaluated by Dr. Shelby (Neuroligst) is recommending MRI or CTA as finding on CT not conclusive for stroke or underlying malignancy. MRI could not be done as his ICD is not MRI compatible and therefore a CTA of head and neck was requested and confirmed a right MCA territory infarct. Review of Systems 2 Review of Systems: Gen: no fever Resp: no sob, no cough CV: no chest, no REZA, no leg edema GI: No n/v, no abd pain Neuro: No confusion Yes all other systems are reviewed and are negative [facility] Medical History Pacemaker ILD (interstitial lung disease) Pulmonary nodules COPD (chronic obstructive pulmonary disease) Effusion, left knee Bursitis of right shoulder Medial meniscus tear Osteoarthritis of right knee Pes anserinus bursitis of right knee Effusion, right knee Family History Father No problems noted. Mother No problems noted. Son No problems noted. Surgical History History of carpal tunnel release History of cholecystectomy History of tonsillectomy History of colonoscopy Social History Household Members: Spouse Housing: Condominium Do you presently have visiting nurse or other home services: No Alcohol intake: current Alcohol intake frequency: does not drink Alcohol type: beer Patient Tobacco Use Status: Former Tobacco user Tobacco use type: Cigarette Years Smoked: 30 years Smoked in Last 30 Days: No Use of substances other than those prescribed or required for medical reasons: No Currently Displaying Signs/Symptoms of Drug Intoxication Withdrawal: No Have you been hit, kicked, punched, or otherwise hurt by someone within the past year? If so, by whom?: No Do you feel safe in your current relationship?: Yes Is there a partner from a previous relationship who is making you feel unsafe now?: No Are you made to feel afraid or neglected: No Advance Directives: Yes Advance Directives Information Provided: Yes Advance Directives on File: No Advance Directives Date on File: 06/24/23 Do you have thoughts of harming others: None Do you have a plan to hurt others: No Plan Recently lost weight without trying: No How much weight loss: Not applicable Eating poorly because of decreased appetite: No Nutrition screen score: 0 Nutrition Risks: No Nutritional Risk Poor oral hygiene: No service: No Current occupational status: retired 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 Allergies Allergy/AdvReac Type Severity Reaction Status Date / Time No Known Allergies Allergy Verified 06/24/23 05:06 [No Known Allergies*] Active Medications: Current Medications Acetaminophen (Acetaminophen 325 Mg Tablet) 650 mg PO Q6H PRN PRN Reason: Pain, Mild (Pain Scale 1-3) Albuterol Sulfate (Albuterol Sulfate 90 Mcg 8 Gm Inhaler) 2 puff INHALE Q6H PRN PRN Reason: shortness of breath or wheezing Allopurinol (Allopurinol 100 Mg Tablet) 100 mg PO DAILY [facility] Last Admin: 06/24/23 11:55 Dose: 100 mg Amiodarone HCl (Amiodarone Hcl 200 Mg Tablet) 200 mg PO DAILY [facility] Last Admin: 06/24/23 11:56 Dose: 200 mg Amoxicillin/Clavulanate Potassium (Amoxicillin/Potassium Clav 500 Mg Tablet) 500 mg PO BID [facility] Aspirin (Aspirin Enteric Coated 81 Mg Tablet.) 81 mg PO DAILY [facility] Last Admin: 06/24/23 11:55 Dose: 81 mg Atorvastatin Calcium (Atorvastatin Calcium 40 Mg Tablet) 40 mg PO BEDTIME [facility] Calcium Carbonate (Calcium Carbonate 500 Mg Tablet) 500 mg PO DAILY [facility] Last Admin: 06/24/23 11:56 Dose: 500 mg Enoxaparin Sodium (Enoxaparin Sodium 30 Mg/0.3 Ml Syringe) 30 mg SUBCUT Q24H [facility] Last Admin: 06/24/23 09:33 Dose: 30 mg Fluticasone Propionate (Fluticasone Propionate Nasal 16 Gm [place]) 2 spray NOSTRIL-B DAILY [facility] Last Admin: 06/24/23 11:58 Dose: Not Given Fluticasone/Vilanterol (Fluticasone/Vilanterol 100/25 Blst.W.Dev) 1 puff INHALE RDAILY [facility] Magnesium Hydroxide (Milk Of Magnesia 30 Ml Oral.Susp) 30 ml PO DAILY PRN PRN Reason: Constipation Melatonin (Melatonin 3 Mg Tablet) 3 mg PO BEDTIME PRN PRN Reason: Insomnia Multivitamins/Vitamin C (Multivitamin Tablet) 1 tab PO DAILY [facility] Last Admin: 06/24/23 11:56 Dose: 1 tab Ondansetron HCl (Ondansetron Hcl 4 Mg/2 Ml Vial) 4 mg IVPUSH Q8H PRN PRN Reason: Nausea and Vomiting Sacubitril/Valsartan (Sacubitril/Valsartan 49/51 1 Tab Tablet) 1 tab PO BID [facility]; Protocol Last Admin: 06/24/23 11:55 Dose: 1 tab Sodium Chloride (0.9 % Sodium Chloride Flush 3 Ml Syringe) 3 [facility] Tamsulosin HCl (Tamsulosin Hcl 0.4 Mg Capsule) 0.4 mg PO BEDTIME [facility] Vitamin D (Cholecalciferol (Vitamin D3) 25 Mcg Tablet) 25 mcg PO DAILY [facility] Last Admin: 06/24/23 11:56 Dose: 25 mcg Home Medications Medication Instructions Recorded Confirmed Last Taken Type allopurinol 100 mg tablet 100 mg PO DAILY 04/12/20 06/24/23 06/23/23 History atorvastatin 40 mg tablet 40 mg PO BEDTIME 04/12/20 06/24/23 06/23/23 History sacubitril 49 mg-valsartan 51 mg 1 tab PO BID 04/12/20 06/24/23 06/23/23 History tablet (Entresto) aspirin 81 mg tablet,delayed 81 mg PO DAILY 08/18/20 06/24/23 06/23/23 History release calcium carbonate 500 mg calcium 500 mg PO DAILY 07/05/21 06/24/23 06/23/23 History (1,250 mg) tablet (Calcium 500) multivitamin 1 tab PO DAILY 07/27/22 06/24/23 06/23/23 History amiodarone 400 mg tablet 200 mg PO DAILY 03/13/23 06/24/23 06/23/23 History alendronate 70 mg tablet 70 mg PO SA 06/24/23 06/24/23 06/23/23 History tamsulosin 0.4 mg capsule 0.4 mg PO BEDTIME 06/24/23 06/24/23 06/23/23 History Physical Exam 2 Vital Signs and Narrative: Vital Signs: Last Vital Signs Temp 97.1 F 06/24/23 11:54 Pulse 69 06/24/23 11:54 Resp 20 06/24/23 11:54 BP 155/67 H 06/24/23 11:54 Pulse Ox 92 06/24/23 11:54 O2 Del Method Room Air 06/24/23 11:54 O2 Flow Rate 2 06/24/23 07:05 Oxygen Flow Rate 2 06/24/23 05:01 BMI result Body Mass Index 25.8 Const: Other: Constitutional: Alert, in no distress, overweight. Mental Status: Oriented to person, place and time. Eyes: Pupils are equal, round and reactive to light. Ear, Nose and Throat: Oropharynx clear, mucous membranes moist. some swelling on the the left side of the mouth with mild sagin, and possible dental abscess of one of the back teeth Respiratory: Clear to auscultation. No wheezing, rales or rhonchi. Cardiovascular: S1 S2 regular. No murmurs, rubs or gallops. Gastrointestinal: Abdomen soft, non-tender, non-distended. Normal bowel sounds.? Neurologic: Cranial nerves II-XII grossly intact. No focal neurological deficits. Moves all extremities spontaneously. Strengths are intact on both arms and legs, speecn is clear, swelling of lower sides of mouth wth mild assymetry Skin: No rashes or lesions.? Musculoskeletal: No cyanosis or clubbing. Psychiatric: Normal mood and affect? Results Labs 06/24/23 05:34 06/24/23 05:34 Labs: Laboratory Results - last 24 hr 06/24/23 06/24/23 06/24/23 05:34 08:29 09:36 MCV 92.7 MCH 32.4 MCHC 35.0 RDW 13.2 Plt Count 197 MPV 8.7 L Immature Gran % (Auto) 0.4 Neut % (Auto) 72.0 Lymph % (Auto) 11.7 L Carter % (Auto) 11.0 Eos % (Auto) 4.1 H Baso % (Auto) 0.8 Lymph # (Auto) 1.0 L Carter # (Auto) 0.9 Eos # (Auto) 0.3 Baso # (Auto) 0.1 Abs Immat Gran (auto) 0.03 Absolute Neuts (auto) 6.0 Absolute Nucleated RBC 0.000 Nucleated RBC % (auto) 0.0 PT 12.1 INR 1.0 Hold Blue Top SEE NOTE Anion Gap 13 Estim Creat Clear Calc 59.7 Estimated GFR > 60 Random Glucose 173 H Estimat Average Glucose 120 Hemoglobin A1c % 5.8 Calcium 8.7 Total Bilirubin 0.8 AST 34 ALT 54 H Alkaline Phosphatase 73 Total Protein 6.5 Albumin 3.6 Urine Color Yellow Urine Appearance Clear Urine pH 7.0 Ur Specific [place] 1.015 Urine Protein Negative Urine Glucose (UA) Negative Urine Ketones Negative Urine Blood Negative Urine Nitrite Negative Ur Leukocyte Esterase Negative COVID-19 ([facility]) Negative COVID-19 Clin Com See Note Imaging Radiologist's Impressions: Impressions Cervical Spine CT 06/24/23 06:00 IMPRESSION: CT SCAN OF THE HEAD: * No acute intracranial intracranial hemorrhage. * Interval development of an area of hypodensity and encephalomalacia in the posterior right parietal lobe in the distribution of the right middle cerebral artery, consistent with subacute infarct, though an acute component cannot be excluded. Consider further evaluation with MRI scan. * Prominent findings of ischemic small vessel disease. * Mild maxillary sinus disease. CT SCAN OF THE CERVICAL SPINE: * No evidence of cervical spine fracture or malalignment. * Prominent degenerative changes in the cervical spine as discussed above. This result was discussed with Dr. Bravo 06/24/2023, 8:05 AM and it was ascertained that the content and urgency of this report was understood at the time of direct communication. Head CT 06/24/23 06:00 IMPRESSION: CT SCAN OF THE HEAD: * No acute intracranial intracranial hemorrhage. * Interval development of an area of hypodensity and encephalomalacia in the posterior right parietal lobe in the distribution of the right middle cerebral artery, consistent with subacute infarct, though an acute component cannot be excluded. Consider further evaluation with MRI scan. * Prominent findings of ischemic small vessel disease. * Mild maxillary sinus disease. CT SCAN OF THE CERVICAL SPINE: * No evidence of cervical spine fracture or malalignment. * Prominent degenerative changes in the cervical spine as discussed above. This result was discussed with Dr. Bravo 06/24/2023, 8:05 AM and it was ascertained that the content and urgency of this report was understood at the time of direct communication. Assessment and Plan (1) CVA (cerebral vascular accident): Status: Acute (2) Presence of implantable cardioverter-defibrillator (ICD): Status: Acute (3) Cardiomyopathy: Status: Acute Plan 82/ male with history of AICD, h/o prostate cancer, HLD, ILD, BPH here with a syncope, etiology unclear, CT states possible subactue or acute stroke Syncope--transient, thus far cardiac work up negative AICD interogated without event, normal orthostatic BP. Will continue to monitor on tele, get echo tomorrow, cardiology to follow up. EEG tomorrow Stroke on CT.. CTA of head and neck to further eval, unable to do MRI due to AICD that is not MRI compatible, continue Lipitor, continue ASA, PT/OT eval, check lipids in the morning. CTA finding consistent with acute in the acute stroke in right MCA teritory, Plavix added to Aspirin Cardiomyopathy--continue Entresto, Amio--no details available, AICD was interogated and no arrythmia detected --cardiology will request record from his cardioloogist in the morning Mild Hyponatremia--Monitor and repeat lab tomorrow BPH Flomax HLD --statin Tooth abscess of left lower tooth, got penecillin in ED, will continue Augmentin 500 bid and should follow up with a dentist h/o ILD--continue inhalers DVT prophylaxis--lovneox Full code need for inpatient: Acute syncope, acute stroke, close monitoring and further testing PT eval tomorrow Plan discussed with patient, son and later at the bedside CTA result reviewed and confirmed stroke f Quality Stroke Does the patient have a stroke diagnosis?: Yes Reason for No Anti-thrombotic by Day Two: Drug treatment not indicated VTE Prior VTE?: No VTE Risk Level:: Medical - moderate - high VTE Device Contraindication: N/A - Device Ordered VTE Drug Contraindication: N/A - Med Ordered
--- NOTE | 2023-06-24 14:49 | MHC.CM.PN ---
IMM 06/24. Pt lives at home with his , is self-care. Pts to transport him home. HCP copy requested. PCP: Dr. Royal Pierre
--- NOTE | 2023-06-24 15:11 | PC.NURSE ---
Pt arrived from ED on stretcher able to ambulate to bed with contact guard. Oriented to room, call hernadez system and staff. A&OX4 speech clear, mild left mouth droop flat nasolabial fold. Tongue midline. EAST to command 5/5 except mild weakness to LUE. Per pt sensation to left side of face slightly weaker patient attributes to tooth abscess. Denies headache, dizziness or vision changes pupils PERRLA 2B tracks appropriate. LSCTA denies SOB or CP, NS on tele. BS+X4 abdomen soft non-tender denies nausea/vomiting tolerating diet. Voiding in urinal. Bed in lowest position alarm, red socks and bracelet patient educated on safety. Pacer interrogated this am not able to have MRI. CTA head/neck completed in afternoon. Will continue to monitor and report changes
[2023-06-24] MEDS: iohexoL 350 MG/ML 100 ML INFUS..BTL IV (15:19)
[2023-06-24] MEDS: 0.9 % Sodium Chloride Flush 3 ML SYRINGE IVFLUSH ×2 (20:54→21:05)
[2023-06-24] MEDS: Atorvastatin Calcium 40 MG TABLET PO (20:54)
[2023-06-24] MEDS: Amoxicillin/Potassium Clav 500 MG TABLET PO (20:54)
[2023-06-24] MEDS: Tamsulosin HCL 0.4 MG CAPSULE PO (20:58)
[2023-06-24] MEDS: Clopidogrel Bisulfate 75 MG TABLET PO (23:32)
[2023-06-25 03:40] VITALS: TEMP 36.7
[2023-06-25 03:41] VITALS: BP 104/52; PULSE 73; RESP 18; TEMP 36.7; O2SAT 91
--- NOTE | 2023-06-25 07:00 | CA_ITS ---
Transthoracic Echocardiogram Patient (Last, First, Middle): Deacon Keyes C Gender: Male Date of : 1940 Age: 82 Procedure Date: 06/25/2023 Procedure Type: Transthoracic Echocardiogram Location: [facility] [place] Height: 167.64 cm Weight: 72.58 kg BSA: 1.82 m2 Heart Rate: 72 bpm BP: 122 / 60 mmHg Ob/Gyn Physician: Referring MD: Perez Mei MD Symptoms: syncope Study Quality: Adequate ECG Rhythm: Sinus Conclusions: - Normal left ventricular cavity size. There is mildly increased left ventricular wall thickness. The left ventricular systolic function is mildly decreased. The visually estimated ejection fraction is between 40-45%. - Elevated filling pressures. - The apex, apical anterior, apical inferior, and mid anteroseptal segments are hypokinetic. - Normal right ventricular cavity size and systolic function. There is an ICD wire seen in the right ventricle. Findings Procedure Information Contrast agent, definity, is being given per protocol without apparent complications. Left Ventricle Normal left ventricular cavity size. There is mildly increased left ventricular wall thickness. The left ventricular systolic function is mildly decreased. The visually estimated ejection fraction is between 40-45%. Abnormal diastolic function is noted. Spectral Doppler is indicative of an impaired relaxation filling pattern. Elevated filling pressures. Wall Motion Rest Echo Findings The apex, apical anterior, apical inferior, and mid anteroseptal segments are hypokinetic. Right Ventricle Normal right ventricular cavity size and systolic function. There is an ICD wire seen in the right ventricle. Atria The left atrium is moderately dilated. Aortic Valve There is a normal trileaflet aortic valve. There is no aortic valve stenosis. There is mild aortic valve regurgitation. Mitral Valve The mitral valve appears normal. There is trace mitral valve regurgitation. There is no mitral valve stenosis. Pulmonic Valve Normal pulmonic valve structure and function. There is trace pulmonic valve regurgitation. Tricuspid Valve Normal tricuspid valve structure. There is trace tricuspid valve regurgitation. Normal right atrial pressure. There is no evidence of pulmonary hypertension. Great Vessels There is mild dilatation of the sinuses of Valsalva measuring 3.90 cm. The visualized portions of the pulmonary artery and branches are normal. Venous The inferior vena cava is normal in size and collapses greater than 50% with inspiration. Pericardium/Pleural There is no evidence of pericardial effusion. Prior Study Comparison No significant change compared to prior study dated: 07/06/2020. Measurements 2D Linear Measurements IVSd: 1.20 0.6-0.9/0.6-1.0 cm LVIDd: 3.90 3.9-5.3/4.2-5.9 cm LVIDd Index: 2.14 2.4-3.2/2.2-3.1 cm/m2 LVIDs: 2.15 2.0-3.6 cm LVPWd: 1.21 0.7-1.1 cm LA Diam: 3.20 2.7-3.8/3.0-4.0 cm LAIDs Index: 1.76 1.5-2.3 cm/m2 LV Mass: 199.60 67-162/88-224 g LV Mass Index: 109.67 43-95/49-115 g/m2 LVOT Diam: 2.10 3.0+(-)1.3 cm 2D Systolic Function EF 4C: 43.90 >55% EF 2C: 45.60 >55% EF BiP: 43.40 >55% Mitral Valve MV Pk E: 0.57 MV PK A: 1.06 MV Decel Time: 209.00 E/A: 0.50 E'Lateral: 4.24 E'Medial: 3.48 E/E' Med: 16.50 E/E' Lat: 13.50 PHT: 61.00 MVA PHT: 3.61 Decel [place]: 2.75 Aortic Valve AoV Pk Ashu: 1.59 AoV Mn Ahsu: 0.99 AoV VTI: 0.38 AoV Pk Grad: 10.00 Aov Mn Grad: 5.00 ERICA Cont.VTI: 1.83 AI Pk Ashu: 4.07 AI [place]: 2.77 LVOT LVOT Pk Ashu: 0.93 LVOT Mn Ashu: 0.58 LVOT VTI: 0.20 LVOT Pk Grad: 3.00 LVOT Mn Grad: 2.00 LVOT Diam: 2.10 LVOT Area: 3.46 Diastolic Function MV Pk E: 0.57 MV Pk A: 1.06 E/A: 0.50 E'Medial: 3.48 E/E' Med: 16.50 E' Laterial: 4.24 E/E' Lat: 13.50 Right Ventricle TAPSE (mm): 21.70 TVS' Ashu: 10.70 Tricuspid Valve TR Pk Ashu: 2.29 TR Pk Grad: 21.00 RA Press: 3.00 RVSP: 24.00 Great Vessels Aorta Sinus of Valsalva: 3.90 2.0-3.5 cm Ao Asc: 3.60 2.1-3.4 cm Pulmonary Valve PV Pk Ashu: 1.22 Peak PV Grad: 6.00 Updated in Other Vendor System with Status of Final Checo Farmer MD electronically signed on 06/25/2023 1:06:35 PM with status of Final
[2023-06-25 07:14] VITALS: BP 144/65; PULSE 64; RESP 20; TEMP 36.4; O2SAT 93
[2023-06-25 07:18] LABS: Cholesterol 111 mg/dL (<200); HDL Cholesterol 46 mg/dL (>40); LDL Cholesterol Calculated 55 mg/dL (<100); Triglycerides 54 mg/dL (<150)
[2023-06-25] MEDS: allopurinoL 100 MG TABLET PO (08:14)
[2023-06-25] MEDS: Amiodarone HCL 200 MG TABLET PO (08:14)
[2023-06-25] MEDS: Multivitamin TABLET 1 TAB PO (08:14)
[2023-06-25] MEDS: Cholecalciferol (Vitamin D3) 25 MCG TABLET PO (08:14)
[2023-06-25] MEDS: Clopidogrel Bisulfate 75 MG TABLET PO (08:14)
[2023-06-25] MEDS: Aspirin Enteric Coated 81 MG TABLET.DR PO (08:14)
[2023-06-25] MEDS: Amoxicillin/Potassium Clav 500 MG TABLET PO (08:14)
[2023-06-25] MEDS: Sacubitril/Valsartan 49/51 1 TAB TABLET PO (08:14)
[2023-06-25] MEDS: Fluticasone/Vilanterol 100/25 BLST.W.DEV 1 PUFF INHALE (08:30)
[2023-06-25 08:31] VITALS: PULSE 72; RESP 18; O2SAT 94
[2023-06-25 10:55] VITALS: BP 138/64; PULSE 70; RESP 18; TEMP 36.6; O2SAT 93
--- NOTE | 2023-06-25 11:35 | PM.PNCARD ---
Subjective Subjective Date of Service: 06/25/23 Interval history: Seen examined at bedside. Telemetry reviewed. CT scan showing acute infarct within the vascular territory of the right middle cerebral artery. Device interrogation has not shown any significant arrhythmia or device therapy. He had ICD placement recently because he had nonsustained VT recorded on his pacemaker. Physical Exam Vital Signs: Last Vital Signs Temp 97.9 F 06/25/23 10:55 Pulse 70 06/25/23 10:55 Resp 18 06/25/23 10:55 BP 138/64 06/25/23 10:55 Pulse Ox 93 06/25/23 10:55 O2 Del Method Room Air 06/25/23 10:55 O2 Flow Rate 2 06/24/23 07:05 Oxygen Flow Rate 2 06/24/23 05:01 BMI result Body Mass Index 25.8 GENERAL APPEARANCE: in no acute distress, pleasant. NECK: no carotid bruit, no jugular venous distention. SKIN: no suspicious lesions, warm and dry. HEART: no murmurs, regular rate and rhythm. LUNGS: clear to auscultation bilaterally. ABDOMEN: soft, nontender. EXTREMITIES: no edema. PERIPHERAL PULSES: equal. NEUROLOGIC: Right hand power 4/5. dropping of right angle of mouth. Objective Labs and Meds 06/24/23 05:34 06/24/23 05:34 Lab results: Laboratory Results - last 24 hr 06/25/23 06:07 Hold Purple Top SEE NOTE Triglycerides 54 Cholesterol 111 LDL Cholesterol, Calc 55 HDL Cholesterol 46 Imaging Radiologist's impression: Impressions Head/Neck CTA 06/24/23 15:49 IMPRESSION: There is an acute infarct within the vascular territory of the right middle cerebral artery. No new infarct or hemorrhage. No abnormal intracranial mass or enhancement. Partially calcified atheromatous plaque involves both carotid bifurcations and the cavernous segments of both internal carotid arteries. No stenosis of the cervical carotid or vertebral arteries. No intracranial large vessel occlusion. Progress Note: A&P Assessment and plan (1) Cardiomyopathy: Status: Acute (2) Syncope: Status: Acute (3) CVA (cerebral vascular accident): Status: Acute Plan 82 year gentleman with known history of previous myocardial infarction and moderate LV dysfunction, previous syncopal episodes for which he had a pacemaker placed and nonsustained ventricular tachycardia recorded a pacemaker for which the device was changed to ICD recently. He follows with Dr. Montilla and Dr Berg at [facility]. He presented with episode where he was holding a bottle in his right hand which fell and then he found himself on the floor. He said he did not lose consciousness. The heard the thud and came to check on him and by report he was awake. No seizure-like activity was noted. His CT scan has shown acute CVA. He has been started on aspirin Plavix. He has an ICD which was interrogated and apparently no recent therapies by the device or any arrhythmia recorded. He has been on amiodarone which should be continued at 200 mg daily from the 400 mg. Resume rest of his medications. Not orthostatic. He has history of previous syncopal episodes and on 1 occasion he had transient bradycardia in 20s before coming to the emergency department and at that time pacemaker was placed. Overall he is stable at this point. Would recommend cardiac event monitor through his dispute specialist at [facility] just to make sure that he has not been going in and out of atrial fibrillation. Alternative a device interrogation regularly can be done to make sure there is no other arrhythmia. Would recommend to stop aspirin after 3 months and stay on Plavix only. Amiodarone should be decreased to 200 mg because 400 mg dose has a higher risk of toxicity. Thank you for allowing me to participate in the care of your patient. Please feel free to contact me if you have any questions. Time Spent With Patient Time: Total time managing care of this patient today ____ minutes. Progress Note: Quality Stroke Does the patient have a stroke diagnosis?: Yes Reason for No Anti-thrombotic by Day Two: Drug treatment not indicated Procedures Date of Service Date of Service: 06/25/23
--- NOTE | 2023-06-25 12:01 | MHC.CM.PN ---
Referral submitted today for [facility] per stroke nurse recommendation.
[2023-06-25 13:51] LABS: Anion Gap 11 (12-20)
--- NOTE | 2023-06-25 13:52 | P.DS_ITS ---
DS: Providers Provider Date of Service: 06/25/23 Date of admission: 06/24/23 09:34 Primary care physician: Royal Pierre MD Consults: 06/24/23 08:30 Consult to Cardiology Routine Consulting Provider: [facility] Reason for consultation: Syncope, rule out arrythmia Has provider been notified: Yes 06/24/23 08:31 Consult to Neurology Routine Consulting Provider: [facility] Reason for consultation: Subacute stroke Has provider been notified: No DS: Diagnosis Discharge Diagnosis (1) CVA (cerebral vascular accident): Status: Acute (2) Presence of implantable cardioverter-defibrillator (ICD): Status: Acute (3) Cardiomyopathy: Status: Acute DS: Summary Hospital Course Hospital Course: Chief Complaint: Episode of passing out 82 year male with suspected history of bradycardia and had pacemaker for years and recently was coverted to AICD at [facility] about 2 months agao, no details available , and is on amiodarone, history of prostate cancer, history osteoporosis, HLD. Recently he has been suffering from a toothache and was to be prescribed Abx but the pharmacy was closed, however he took Tramadol for the pain. Around 330 this morning, he got up to get a soda, he later dropped it and when attempted to pick it up from the floor, he passed out and was on his knees and doesn't believe that he hit his head. His was there promptly and he 911 was called and he was brought to the hospital. ECG showed no acute ischemic changes, orthostatic BP was within normal, a CT of cervical spine show no fracture, CT of brain show Interval development of an area of hypodensity and encephalomalacia in the posterior right parietal lobe in the distribution of the right middle cerebral artery, consistent with subacute infarct, though an acute component cannot be excluded He has been evaluated by Dr. Shelby (Neuroligst) is recommending MRI or CTA as finding on CT not conclusive for stroke or underlying malignancy. MRI could not be done as his ICD is not MRI compatible and therefore a CTA of head and neck was requested and confirmed a right MCA territory infarct. Hospital course: The patient presented with what appeared initially to be a syncopal episode althoght hard to ascertain that he lost any conscouness as he was on his knees when the responded after hearing a thump. Orhostatic work up was unremarkable, A stat CT of the head raised the posibility of acute or subacute stroke in the right MCA territory. He was evaluaed by the neurologist and CTA of the head and neck was subsequently done and confirmed an acute acute stroke in the right MCA territory. All in all he had no focal deficit, having normal strenght in all extremity. In addition to Baby aspirin daily, plavix 75 mg daily was recommended by the neurologist. He is already on Lipitor and blood pressure adequately controlled. He had no difficulty with speech or swallowing. The next day he was evaluaed OT and PT team very well with no gait issues, and did not need any additional service. He was evaluated by the well tender as well in light of the syncope, cardiac etiology was essentially unremarkable. The AICD was interogated and show no activity or arrythmia. The carediology team advises he continues with all prior medication but a note is made of amiodarone only 200 mg daily and in 3 months he should stop taking aspirin and stay on Plavix only. Initially there was a thought of doing an EEG to rule seizure, but clinically there does not appear that he suffered seizure and after finding that he had a stroke, His on Lipitor 40 mg which will be continued, LDL was 55, HDL 46. EEG was canceled after discussing with neurlogsit. As for dentl abscess, he is prescribed Amoxillin 500 mg twice daily for total of 7 days and advised to follow up with hid dentist in the immidiate setting. Also note hyponatremia of 130 that is stable and chronic. Dicharge plan was discussed with patient son, cardioloigist and stroke team. He did not want visiting nurse at this time, but case management will look into possible other help at home. Time Attestation Discharge coordination time: Greater than 30 minutes Quality: Safe Use of Opioids Does Pt have an Active Cancer Diagnosis on the Problem List?: No Quality: Stroke Does the patient have a stroke diagnosis?: No Physical Exam Vital Signs: Vital Signs: Last Vital Signs Temp 97.9 F 06/25/23 10:55 Pulse 70 06/25/23 10:55 Resp 18 06/25/23 10:55 BP 138/64 06/25/23 10:55 Pulse Ox 93 06/25/23 10:55 O2 Del Method Room Air 06/25/23 10:55 O2 Flow Rate 2 06/24/23 07:05 Oxygen Flow Rate 2 06/24/23 05:01 BMI result Body Mass Index 25.8 DS: Data Data Completed and Pending Labs on day of discharge: Laboratory Results - last 24 hr 06/25/23 06/25/23 06:07 13:31 Hold Purple Top SEE NOTE SEE NOTE Anion Gap 11 L Triglycerides 54 Cholesterol 111 LDL Cholesterol, Calc 55 HDL Cholesterol 46 Discharge Plan Discharge Anticipated Discharge Date/Time: 06/25/23 13:15 Patient Disposition: Home, Self-Care Discharge Diagnosis: Acute embolic stroke Referrals: Royal Pierre MD [Primary Care Provider] - 1 Week Discharge Medications: New clopidogrel 75 mg Tablet 75 mg PO DAILY Qty: 30 0RF amoxicillin-pot clavulanate 500-125 mg Tablet 1 tab PO BID Qty: 12 0RF Continued multivitamin Tablet 1 tab PO DAILY Patient Comments: Calcium 1000 u Magnesium 400 u Zinc 25 u D3 600 u cholecalciferol (vitamin D3) [Vitamin D3] 25 mcg (1,000 unit) capsule 25 mcg PO DAILY Qty: 30 5RF alendronate 70 mg tablet 70 mg PO SA tamsulosin 0.4 mg capsule 0.4 mg PO BEDTIME albuterol sulfate 90 mcg/actuation HFA aerosol inhaler 2 puff inhalation Q6H PRN (Reason: shortness of breath or wheezing) Qty: 6.7 0RF aspirin 81 mg tablet,delayed release (DR/EC) 81 mg PO DAILY Entresto 49-51 mg tablet 1 tab PO BID atorvastatin 40 mg tablet 40 mg PO BEDTIME allopurinol 100 mg tablet 100 mg PO DAILY calcium carbonate [Calcium 500] 500 mg calcium (1,250 mg) tablet 500 mg PO DAILY amiodarone 400 mg tablet 200 mg PO DAILY fluticasone propion-salmeterol [Advair Diskus] 250-50 mcg/dose blister with device 1 inh inhalation Q12H 30 Days Qty: 60 11RF fluticasone propionate 50 mcg/actuation spray,suspension 2 spray intranasal DAILY 30 Days Qty: 15.8 11RF Discharge Orders: Discharge Order (Routine); Ordered 06/25/23 Ordered By: Perez bony Diet: Advance to usual diet Activity on Discharge: No heavy lifting Stand Alone Forms: Patient Portal Discharge page Care Plan Goals: To make full recovery from stroke and to prevent future strokes Health Concerns: Stroke syncope or passing out Plan of Treatment: * Continue taking all your current medications as prescribed. * You are now also prescribed Plavix, another blood thinner to help prevent stroke. Take Plavix in addition to your existing medications. * In 3 months, or on around September 24, 2023, you will stop taking Aspirin and continue taking Plavix alone. * Ensure you only take 200mg of Amiodarone daily. * Schedule a follow-up appointment with your cardiologists, Dr. Montilla and Dr. Berg, at [facility]. * If you experience any unusual symptoms such as weakness, difficulty speaking, vision problems, or other unexpected symptoms, call 911 immediately. * Additionally, request a follow-up appointment with your primary care provider within the next 7 to 10 days. * For Dental infection take Agumentin as recommended and see your dentist in the immediate future * Assessment: See above
[2023-06-25 13:53] LABS: Anion Gap 11 (12-20); Blood Urea Nitrogen 11 mg/dL (9-16); Calcium 8.9 mg/dL (8.4-10.2); Carbon Dioxide 27 mmol/L (22-29); Chloride 96 mmol/L (96-108); Creatinine Clr Calc Pharmacy 61.1; Estimated Glomerular Filt Rate > 60; Glucose Random 127 mg/dL (60-115); Potassium 4.2 mmol/L (3.3-5.1); Sodium 130 mmol/L (135-145)
[2023-06-25 13:54] LABS: Blood Urea Nitrogen 10 mg/dL (9-16); Calcium 8.8 mg/dL (8.4-10.2); Carbon Dioxide 25 mmol/L (22-29); Chloride 98 mmol/L (96-108); Creatinine Clr Calc Pharmacy 62.6; Estimated Glomerular Filt Rate > 60; Glucose Random 94 mg/dL (60-115); Potassium 4.1 mmol/L (3.3-5.1); Sodium 130 mmol/L (135-145)
--- NOTE | 2023-06-25 14:53 | MHC.CM.PN ---
Pt has been medically cleared for DC. He will go home via family, referral submitted to [facility].
== END 2023-06-25 15:26 | disposition home or self-care (01) | DRG 65 ==
LOC: HO.ED 07:25 → HO.IMC 09:35
PROVIDERS: Student in an Organized Health Care Education/Training Program; Admitting Provider Internal Medicine; Emergency Provider Emergency Medicine Emergency Medical Services; PCP Internal Medicine; Visit Provider Internal Medicine
DX: I63.511 Cerebral infarction due to unspecified occlusion or stenosis of right middle cerebral artery (principal); E87.1 Hypo-osmolality and hyponatremia; I42.9 Cardiomyopathy, unspecified; J84.9 Interstitial pulmonary disease, unspecified; I47.20 Ventricular tachycardia, unspecified; N40.0 Benign prostatic hyperplasia without lower urinary tract symptoms; Z45.02 Encounter for adjustment and management of automatic implantable cardiac defibrillator; Z85.46 Personal history of malignant neoplasm of prostate; K04.7 Periapical abscess without sinus; Z20.822 Contact with and (suspected) exposure to COVID-19; Z87.891 Personal history of nicotine dependence; Z79.51 Long term (current) use of inhaled steroids; Z79.02 Long term (current) use of antithrombotics/antiplatelets; Z79.84 Long term (current) use of oral hypoglycemic drugs; Z79.899 Other long term (current) drug therapy
CPT/HCPCS: 36415; 70450; 70496; 70498; 72125; 80048; 80053; 80061; 81003; 83036; 84484; 85025; 85610; 87635; 93005; 93306; 94640; 97161; 97165; 99285; J1650; Q9957; Q9967

== ENCOUNTER 2023-06-24 09:34 | Outpatient (BNV) | payer MEDICARE, OTHER, SELFPAY | END 2023-06-25 07:00 | PROVIDERS: Admitting Provider Internal Medicine; Emergency Provider Emergency Medicine Emergency Medical Services; PCP Internal Medicine; Visit Provider Internal Medicine Cardiovascular Disease | DX: I42.9 Cardiomyopathy, unspecified (principal) | CPT/HCPCS: 93306 ==

== ENCOUNTER → 2023-06-24 09:34 | Outpatient (BNV) | payer MEDICARE, OTHER, SELFPAY | PROVIDERS: Admitting Provider Internal Medicine; Emergency Provider Emergency Medicine Emergency Medical Services; PCP Internal Medicine; Visit Provider Internal Medicine | DX: I63.9 Cerebral infarction, unspecified (principal); Z95.810 Presence of automatic (implantable) cardiac defibrillator; I42.9 Cardiomyopathy, unspecified | CPT/HCPCS: 99223; 99239 ==

== ENCOUNTER → 2023-06-24 09:34 | Outpatient (BNV) | payer MEDICARE, OTHER, SELFPAY | PROVIDERS: Admitting Provider Internal Medicine; Emergency Provider Emergency Medicine Emergency Medical Services; PCP Internal Medicine; Visit Provider Internal Medicine | DX: R55 Syncope and collapse (principal); I42.9 Cardiomyopathy, unspecified; Z95.810 Presence of automatic (implantable) cardiac defibrillator; I44.0 Atrioventricular block, first degree; R94.31 Abnormal electrocardiogram [ECG] [EKG] | CPT/HCPCS: 93010; 99222; 99232 ==

== ENCOUNTER 2023-07-24 10:22 | Outpatient (AMB) | payer MEDICARE, OTHER, SELFPAY ==
--- NOTE | 2023-07-24 10:27 | A.OFFVIS_ITS ---
Intake Vital Signs 07/24/23 10:28 Height 5 ft 6 in Weight 164 lb 0.383 oz BMI 26.5 BP 120/50 L Blood Pressure Location Lt brachial Position Sitting Pulse 88 Intake Visit Reasons: [place] [facility] [place] Int[place] Note: [facility] [place]/ pt its feeling fine Information Security Manager Required: No Accompanied by: Spouse Allergies No Known Allergies [No Known Allergies*] Allergy (Verified 06/24/23 05:06) Medication List - Last Reconciled 07/24/23 by Joey Flaherty MD albuterol sulfate 90 mcg/actuation 2 puffs inhalation Q6H PRN alendronate 70 mg PO SA allopurinol 100 mg PO DAILY amiodarone 200 mg PO DAILY aspirin 81 mg PO DAILY atorvastatin 40 mg PO BEDTIME calcium carbonate (Calcium 500) 500 mg PO DAILY cholecalciferol (vitamin D3) (Vitamin D3) 25 mcg PO DAILY clopidogrel 75 mg PO DAILY fluticasone propion-salmeterol 250-50 mcg/dose 1 inh inhalation Q12H 30 days fluticasone propionate 50 mcg/actuation 2 sprays intranasal DAILY 30 days multivitamin 1 tab PO DAILY sacubitril-valsartan 49-51 mg (Entresto) 1 tab PO BID tamsulosin 0.4 mg PO BEDTIME tamsulosin 0.4 mg PO DAILY 90 days HPI HPI Comments History of Present Illness Details Deacon is here for follow-up after recent hospitalization. He was recently in the hospital for a possible stroke. He seems to have recovered well in that regard and does not have any overt deficits. He is on dual antiplatelet therapy. Otherwise, no cardiac symptoms like angina or shortness of breath or in fact anything cardiac related at this time. Previously, going to [facility]. Those records were reviewed. He has a history of myocardial infarction many years ago with an ischemic cardiomyopathy/large anterior/apical scar. He had a pacemaker due to multiple syncopal episodes. Then it seems that he was noted to have VT episodes on pacemaker and hence required ICD upgrade. [facility] Medical History (Updated 07/24/23 @ 11:47 by Joey Flaherty MD) Ventricular tachycardia Ischemic cardiomyopathy Atherosclerotic cardiovascular disease Cardiomyopathy Pacemaker ILD (interstitial lung disease) Pulmonary nodules COPD (chronic obstructive pulmonary disease) Effusion, left knee Bursitis of right shoulder Medial meniscus tear Osteoarthritis of right knee Pes anserinus bursitis of right knee Effusion, right knee Surgical History History of carpal tunnel release History of cholecystectomy History of tonsillectomy History of colonoscopy Family History Father No problems noted. Mother No problems noted. Son No problems noted. Social History Household Members: Spouse Housing: [facility] Do you presently have visiting nurse or other home services: No Alcohol intake: current Alcohol intake frequency: does not drink Alcohol type: beer Patient Tobacco Use Status: Former Tobacco user Tobacco use type: Cigarette Years Smoked: 30 years Advance Directives Date on File: 06/24/23 service: No Current occupational status: retired 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 Review of Systems Const Reports chills, Reports fatigue, Reports fever(s), Reports frequent falls, Reports weakness, Reports weight gain and Reports weight loss ENT Reports dizziness Card Reports chest pain, Reports leg edema, Reports lightheadedness, Reports palpitations, Reports dyspnea and Reports dyspnea on exertion Resp Reports cough, Reports dyspnea and Reports dyspnea on exertion GI Reports hematochezia Musc Reports abnormal gait, Reports muscle weakness, Reports numbness, Reports radiating pain into limb and Reports tingling Neuro Reports abnormal gait, Reports dizziness, Reports frequent falls, Reports numbness, Reports tingling and Reports weakness Endo Reports fatigue and Reports palpitations Physical Exam Vital Signs: Last Vital Signs Pulse 88 07/24/23 10:28 BP 120/50 L 07/24/23 10:28 BMI result Body Mass Index 26.5 Const General: comfortable and no acute distress Orientation/consciousness: patient oriented x3 HEENT Other: Unremarkable Head: Yes normal to inspection Neck Neck: Yes normal visual inspection Chest Chest palpation & inspection: normal inspection of the chest Resp Auscultation: clear to auscultation bilaterally Cardio Palpation: normal PMI Heart sounds: S1 normal heart sound present, S2 normal heart sound present, no gallops, no murmurs and no rubs GI Palpation (GI): Soft to palpation Back/Spine/Pelvis Other: unremarkable Skin General skin exam: no rashes or lesions noted Neuro General: patient oriented x3 Extrem General: Yes normal to inspection Psych Mental Status: mental status grossly normal Office Procedures EKG Details: EKG with sinus rhythm at 88/Min; old anteroseptal infarction; [place] [id number], Complete Assessment & Plan Assessment & Plan (1) Atherosclerotic cardiovascular disease: Code(s): I25.10 - Atherosclerotic heart disease of [place] coronary artery without angina pectoris Plan: Had coronary disease in 90s, anterior NE complicated by cardiac arrest. Single-vessel LAD on catheterization then. No PCI performed. Clinically, he does not really have any angina. On aspirin and statins. Most recent LDL 55 mg/dL. Per office note, it seems that he had a large infarct with only mild amount of ischemia on stress testing but we can get the actual stress test report. (2) Ischemic cardiomyopathy: Code(s): I25.5 - Ischemic cardiomyopathy Plan: Clinically, no heart failure symptoms or signs. Recent echocardiogram with LVEF of 40-45% with LAD wall motion abnormality. (3) Ventricular tachycardia: Code(s): I47.20 - Ventricular tachycardia, unspecified Plan: Per prior cardiology note, had a long run of VT, self-terminated. No status post ICD. He is also on amiodarone. It seems that he was on amiodarone 400 mg daily and then that was cut back to 200 mg daily. If no clear recurrent episodes, then we can just stop this in the future. Check thyroid function. (4) Presence of implantable cardioverter-defibrillator (ICD): Code(s): Z95.810 - Presence of automatic (implantable) cardiac defibrillator Plan: Will need transfer remote monitoring to our care. In the past, it seems that he actually had sick sinus syndrome and then had a pacemaker which was then upgraded to ICD based on VT episodes. (5) CVA (cerebral vascular accident): Code(s): I63.9 - Cerebral infarction, unspecified Plan: Per recent CT, acute infarct in the right MCA territory. Atheromatous plaque involving both carotid bifurcations/internal carotid arteries. He has been put on Plavix in addition to aspirin. Will arrange follow-up with Neurology. Plan Discussed with significant other who came for appointment. Orders: Orders TSH reflex Free T4 Today E03.9 - Hypothyroidism, unspecified Coding Level of Care Code Est Pt Level 4 (42671) Diagnoses Atherosclerotic cardiovascular disease I25.10 Ischemic cardiomyopathy I25.5 Ventricular tachycardia I47.20 Presence of implantable cardioverter-defibrillator (ICD) Z95.810 CVA (cerebral vascular accident) I63.9 CPT Codes EKG - CPT: 56433-[id number], Complete ([id number])
[2023-07-24 10:28] VITALS: BP 120/50; PULSE 88; BMI 26.5
== END 2023-07-24 11:08 | disposition home or self-care (01) ==
PROVIDERS: PCP Internal Medicine; Visit Provider Internal Medicine
DX: I25.10 Atherosclerotic heart disease of native coronary artery without angina pectoris (principal); I25.5 Ischemic cardiomyopathy; I47.20 Ventricular tachycardia, unspecified; Z95.810 Presence of automatic (implantable) cardiac defibrillator; I63.9 Cerebral infarction, unspecified
CPT/HCPCS: 93010; 99214

== ENCOUNTER → 2023-07-24 10:22 | Outpatient (BNVA) | payer MEDICARE, OTHER, SELFPAY | PROVIDERS: PCP Internal Medicine; Visit Provider Internal Medicine | DX: I25.10 Atherosclerotic heart disease of native coronary artery without angina pectoris (principal); I25.5 Ischemic cardiomyopathy; I47.20 Ventricular tachycardia, unspecified; I63.9 Cerebral infarction, unspecified; Z95.810 Presence of automatic (implantable) cardiac defibrillator | CPT/HCPCS: 93005; 99212 ==

== ENCOUNTER 2023-08-01 14:45 | Outpatient (AMB) | payer MEDICARE, OTHER, SELFPAY ==
[2023-08-01 14:52] VITALS: BP 130/60; PULSE 70; O2SAT 98; BMI 26.5
--- NOTE | 2023-08-01 14:52 | MHC.PC.OV ---
Vital Signs 08/01/23 14:52 Height 5 ft 6 in Weight 164 lb BMI 26.5 BP 130/60 Blood Pressure Location Lt brachial Position Sitting Pulse 70 Pulse Source Pulse Oximeter Pulse Oximetry (%) 98 Oxygen Delivery Method Room Air Intake Visit Reasons: New Patient, establish care Supervisor Drying And Softening Required: No Rotor Pilot: Not Required per policy Accompanied by: Self / Same As Patient Allergies No Known Allergies [No Known Allergies*] Allergy (Verified 08/01/23 14:52) Medication List - Last Reconciled 08/01/23 by Leila Merida MD albuterol sulfate 90 mcg/actuation 2 puffs inhalation Q6H PRN alendronate 70 mg PO SA allopurinol 100 mg PO DAILY amiodarone 200 mg PO DAILY aspirin 81 mg PO DAILY atorvastatin 40 mg PO BEDTIME calcium carbonate (Calcium 500) 500 mg PO DAILY cholecalciferol (vitamin D3) (Vitamin D3) 25 mcg PO DAILY clopidogrel 75 mg PO DAILY fluticasone propion-salmeterol 250-50 mcg/dose 1 inh inhalation Q12H 30 days fluticasone propionate 50 mcg/actuation 2 sprays intranasal DAILY 30 days sacubitril-valsartan 49-51 mg (Entresto) 1 tab PO BID tamsulosin 0.4 mg PO BEDTIME Tobacco use date assessed: 08/01/23 Fall risk assessment: 1 Fall in past year Last assessed Fall Risk: 08/01/23 Dental Screening Dental Screen Date: 08/01/23 Did you have a dental visit in the last 12 months?: Yes Did you have a dental problem in the last 6 months where you did not have access to dental care?: No Was dental information given to patient?: Patient has dentist HPI New Patient, establish care HPI Details 82-year-old male with multiple medical problems history of prostate cancer COPD interstitial lung disease history of CVA CAD ischemic cardiomyopathy with an ICD hypertension hypercholesterolemia impaired glucose tolerance and atypical fibroxanthoma coming in for the 1st time seeing Dr. Reynold ivey [facility] Medical History (Updated 08/01/23 @ 15:32 by Leila Merida MD) Dental abscess Dysphagia Elevated PSA Abrasion Bursitis of left shoulder Joint pain Effusion, left knee Prostate nodule Microscopic hematuria Bladder outlet obstruction Pes anserinus bursitis of right knee Effusion, right knee Ventricular tachycardia Ischemic cardiomyopathy Atherosclerotic cardiovascular disease Cardiomyopathy Pacemaker ILD (interstitial lung disease) Pulmonary nodules COPD (chronic obstructive pulmonary disease) Bursitis of right shoulder Medial meniscus tear Osteoarthritis of right knee Surgical History History of carpal tunnel release History of cholecystectomy History of tonsillectomy History of colonoscopy Family History Father No problems noted. Mother No problems noted. Son No problems noted. Social History (Updated 08/01/23 @ 15:36 by Leila Merida MD) Household Members: Spouse Housing: [facility] Do you presently have visiting nurse or other home services: No Alcohol intake: current Alcohol intake frequency: does not drink Alcohol type: beer Comment: once Q 3-6 month glass of wine Patient Tobacco Use Status: Former Tobacco user Tobacco use type: Cigarette Years Smoked: 30 years Advance Directives Date on File: 06/24/23 service: No Current occupational status: retired 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 Cognitive needs: No Hearing needs: Yes Vision needs: Yes Questionnaire PHQ-9 Over the last 2 weeks, how often have you been bothered by any of the following problems? 1. Little interest or pleasure in doing things: not at all 2. Feeling down, depressed, or hopeless: not at all 3. Trouble falling or staying asleep, or sleeping too much: not at all 4. Feeling tired or having little energy: not at all 5. Poor appetite or overeating: not at all 6. Feeling bad about yourself - or that you are a failure or have let yourself or your family down: not at all 7. Trouble concentrating on things, such as reading the newspaper or watching television: not at all 8. Moving or speaking so slowly that other people could have noticed. Or the opposite - being so fidgety or restless that you have been moving around a lot more than usual: not at all 9. Thoughts that you would be better off or of hurting yourself in some way: not at all Total score: 0 Source: Developed by Drs. Deacon Rod, Paulette Rose, Aurelio Lopez and colleagues, with an educational dell from [employer]. Thrive Questionnaire Date Thrive assessed: 08/01/23 I am a: Patient What is your living situation today?: I have a steady place to live Within the past 12 months, did the food you bought not last and you didn't have the money to get more?: Never true Within the past 12 months, did you worry whether your food would run out before you got money to buy more?: Never true Do you have trouble paying for medicines?: No Do you have trouble getting transportation to medical appointments?: No Do you have trouble paying your heating and electricity bill?: No Do you have trouble taking care of your child, family member or friend?: No Do you have trouble with day-to-day activities such as bathing, preparing meals, shopping, managing finances, etc.?: No Are you currently unemployed and looking for a job?: No Are you interested in more education?: No Please select the resources that you would like help with: None AUDIT C Alcohol Use Questionnaire (AUDIT-C) 1. How often do you have a drink containing alcohol?: Never Total Score: 0 CORINNE-7 AMB Questionnaire CORINNE-7 Date CORINNE - 7 assessed: 08/01/23 Feeling nervous, anxious, or on edge: 0 = Not at all Not being able to stop or control worryin = Not at all Worrying too much about different things: 0 = Not at all Trouble relaxin = Not at all Being so restless that it is hard to sit still: 0 = Not at all Becoming easily annoyed or irritable: 0 = Not at all Feeling afraid as if something awful might happen: 0 = Not at all Total CORINNE-7 score (0-4 normal; 5-9 mild; 10-14 moderate; 15-21 severe): 0 Source: Developed by Drs. Deacon Rod, Paulette Rose, Aurelio Lopez and colleagues, with an educational dell from [employer]. Physical exam (Primary Care) Vital Signs: Last Vital Signs Pulse 70 08/01/23 14:52 BP 130/60 08/01/23 14:52 Pulse Ox 98 08/01/23 14:52 Oxygen Delivery Method Room Air 08/01/23 14:52 BMI result Body Mass Index 26.5 Tobacco/Smoking Status: Tobacco use Status Tobacco use date assessed 08/01/23 08/01/23 14:54 Patient Tobacco Use Status Former Tobacco user 08/01/23 14:54 Tobacco use type Cigarette 08/01/23 14:54 PHQ-9: PHQ-9 Score PHQ-9: Total score 0 08/01/23 14:54 Thrive Assessment: Date of Thrive Assessment Date Thrive assessed 08/01/23 08/01/23 14:54 Const General: alert; No acute distress Eyes Conjunctivae: conjunctivae normal Resp Auscultation: clear to auscultation bilaterally Cardio Rate: regular rate Rhythm: regular rhythm GI Inspection: Yes normal to inspection Extrem General: Yes normal to inspection and No edema Assessment and Plan Assessment & Plan (1) Hypertension: Code(s): I10 - Essential (primary) hypertension Plan: Continue with blood pressure medication. Decrease salt intake and exercise patient takes Entresto (2) Hypercholesterolemia: Code(s): E78.00 - Pure hypercholesterolemia, unspecified Plan: Avoid fried foods, chicken skin, eggs, butter margarine, pastries and meat. Be it pork or beef they have a lot of cholesterol LDL goal of less than 70 and triglyceride of less than 150 phone atorvastatin 40 mg once a day (3) Impaired glucose tolerance: Code(s): R73.02 - Impaired glucose tolerance (oral) Plan: Decrease the amount of carbohydrate intake, pasta, bread, rice and potatoes are all sugar and that is aside from all the sweet stuff, remember that fruits are good but they are Sweet also. (4) Ischemic cardiomyopathy: Comment: Ischemic January 2021 Code(s): I25.5 - Ischemic cardiomyopathy Plan: Continue follow-up with cardiology has an ICD (5) Atherosclerotic cardiovascular disease: Comment: 1990 VFib 35% hx of cardiac arrest 35 years old Code(s): I25.10 - Atherosclerotic heart disease of [place] coronary artery without angina pectoris Plan: Control the cholesterol, weight, blood pressure continue with aspirin 81 mg once a day (6) CVA (cerebral vascular accident): Comment: Middle cerebral artery ischemic Code(s): I63.9 - Cerebral infarction, unspecified Plan: Continue with aspirin and clopidogrel (7) Osteopenia: Comment: Long-term use of steroids. Bone density 09/2020 with osteopenia, but high FRAX score. Started on alendronate September 2020- present Code(s): M85.80 - Other specified disorders of bone density and structure, unspecified site Plan: On alendronate (8) Prostate cancer: Comment: 04/05 High-grade, moderate volume, localized disease Initial therapy external beam radiation with [facility] August 2021 Code(s): C61 - Malignant neoplasm of prostate Plan: Placed on tamsulosin and continue to monitor. (9) Polymyalgia rheumatica: Comment: Initial presentation of bilateral shoulder pain.? Serology with markedly elevated ESR and CRP.? Started on 10 mg prednisone daily in September 2020 with dramatic response in his symptoms.? He has now successfully tapered off prednisone since 07/2021. No recurrence of PMR symptoms. Code(s): M35.3 - Polymyalgia rheumatica (10) ILD (interstitial lung disease): Code(s): J84.9 - Interstitial pulmonary disease, unspecified Plan: Continue to follow-up with Pulmonary (11) COPD (chronic obstructive pulmonary disease): Code(s): J44.9 - Chronic obstructive pulmonary disease, unspecified Qualifiers: COPD type: chronic bronchitis Chronic bronchitis type: simple Qualified Code(s): J41.0 - Simple chronic bronchitis Plan: Continue with the inhalers has albuterol fluticasone/salmeterol Orders: Orders Free T4 (Free Thyroxine) Today E78.00 - Pure hypercholesterolemia, unspecified IRON PROFILE Today E78.00 - Pure hypercholesterolemia, unspecified Reticulocyte Count Today E78.00 - Pure hypercholesterolemia, unspecified Thyroid Stimulating Hormone Today E78.00 - Pure hypercholesterolemia, unspecified Prostate Specific Antigen Scr Today C61 - Malignant neoplasm of prostate Complete Blood Count Auto Diff Today E78.00 - Pure hypercholesterolemia, unspecified Comprehensive Met. Panel Today E78.00 - Pure hypercholesterolemia, unspecified Ferritin Today E78.00 - Pure hypercholesterolemia, unspecified Lipid Panel Today E78.00 - Pure hypercholesterolemia, unspecified Vitamin B12 and Folate Today E78.00 - Pure hypercholesterolemia, unspecified Hemoglobin A1c Today R73.02 - Impaired glucose tolerance (oral) Uric Acid Today C61 - Malignant neoplasm of prostate Medications: New allopurinol 100 mg PO DAILY 90 tabs 3RF Coding Level of Care Code New Pt Level 4 (93161) Diagnoses Hypertension I10 Hypercholesterolemia E78.00 Impaired glucose tolerance R73.02 Ischemic cardiomyopathy I25.5 Atherosclerotic cardiovascular disease I25.10 CVA (cerebral vascular accident) I63.9 Osteopenia M85.80 Prostate cancer C61 Polymyalgia rheumatica M35.3 ILD (interstitial lung disease) J84.9 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 COPD type: chronic bronchitis Chronic bronchitis type: simple
== END 2023-08-01 15:58 | disposition home or self-care (01) ==
PROVIDERS: PCP Internal Medicine; Visit Provider Internal Medicine
DX: J41.0 Simple chronic bronchitis (principal); C61 Malignant neoplasm of prostate; J84.9 Interstitial pulmonary disease, unspecified; M35.3 Polymyalgia rheumatica; Z86.73 Personal history of transient ischemic attack (TIA), and cerebral infarction without residual deficits; I10 Essential (primary) hypertension; E78.00 Pure hypercholesterolemia, unspecified; R73.02 Impaired glucose tolerance (oral); I25.5 Ischemic cardiomyopathy; I25.10 Atherosclerotic heart disease of native coronary artery without angina pectoris; M85.80 Other specified disorders of bone density and structure, unspecified site
CPT/HCPCS: 99214

== ENCOUNTER 2023-09-07 07:10 | Outpatient (REF) | payer MEDICARE, OTHER, SELFPAY ==
[2023-09-07 07:37] LABS: MANUAL DIFF FLAG NO
[2023-09-07 08:03] LABS: Basophils Absolute Auto 0.1 X10*3/uL (0.0-0.2); Basophils Percent Auto 0.9 % (0-2); Eosinophils Absolute Auto 0.5 X10*3/uL (0.0-0.4); Eosinophils Percent Auto 9.1 % (0-4); Hematocrit 38.8 % (42.0-52.0); Hemoglobin 13.5 g/dl (14.0-18.0); Imm Gran Abs Auto 0.02 X10*3/uL (0.00-0.03); Imm Gran Pct Auto 0.4 % (0.0-0.4); Lymphocytes Absolute Auto 1.2 X10*3/uL (1.2-4.9); Lymphocytes Percent Auto 22.4 % (20-40); Mean Corpuscular HGB Conc 34.8 g/dl (31.0-36.0); Mean Corpuscular Hemoglobin 32.3 pg (27.0-33.0); Mean Corpuscular Volume 92.8 fL (80.0-98.0); Mean Platelet Volume 8.7 fL (9.4-12.4); Monocytes Absolute Auto 0.6 X10*3/uL (0.1-1.2); Monocytes Percent Auto 11.7 % (2-11); Neutrophils Absolute Auto 3.1 x10*3/uL (2.0-8.3); Neutrophils Percent Auto 55.5 % (45-73); Platelet Count 208 X10*3/uL (160-400); Red Blood Count 4.18 X10*6/uL (4.60-5.80); Red Cell Distribution Width 13.3 % (11.0-16.0); Retic HGB Equivalent 36.5 pg (30.0-35.0); Reticulocyte Percent 1.5 % (0.5-1.8); Reticulocytes Absolute 0.062 X10*6/uL (0.026-0.095); White Blood Count 5.5 X10*3/uL (4.8-10.8)
[2023-09-07 08:13] LABS: Estimated Average Glucose 117 mg/dL; Hemoglobin A1c % 5.7 % (<6.0)
[2023-09-07 08:47] LABS: Alanine Aminotransferase 39 U/L (0-40); Albumin Level 3.9 g/dL (3.5-5.0); Alkaline Phosphatase 88 U/L (39-117); Anion Gap 14 (12-20); Aspartate Amino Transferase 25 U/L (5-37); Bilirubin Total 0.6 mg/dL (0.0-1.0); Blood Urea Nitrogen 11 mg/dL (9-16); Calcium 8.8 mg/dL (8.4-10.2); Carbon Dioxide 26 mmol/L (22-29); Chloride 98 mmol/L (96-108); Cholesterol 130 mg/dL (<200); Estimated Glomerular Filt Rate > 60; Glucose Random 116 mg/dL (60-115); HDL Cholesterol 47 mg/dL (>40); Iron 56 mcg/dL (45-160); LDL Cholesterol Calculated 72 mg/dL (<100); Percent Iron Saturation 23 % (15-50); Potassium 4.3 mmol/L (3.3-5.1); Sodium 134 mmol/L (135-145); Total Iron Binding Capacity 242 mcg/dL (228-428); Triglycerides 56 mg/dL (<150); Unsaturated Iron Binding 186 ug/dL; Uric Acid 3.6 mg/dL (3.4-7.0)
[2023-09-07 09:13] LABS: Ferritin 92 ng/mL (20-250); Free T4 (Free Thyroxine) 1.07 ng/dL (0.71-1.85)
[2023-09-07 09:15] LABS: Folate 6.2 ng/mL (> or = 4.0); Prostate Specific Antigen Scr < 0.10 ng/mL (<0.05-4.0); Vitamin B12 419 pg/mL (200-900)
[2023-09-12 09:18] LABS: Testosterone, Total 6 ng/dL (250-1100)
== END 2023-09-07 07:11 | disposition home or self-care (01) ==
LOC: HO.LAB 07:10
PROVIDERS: PCP Internal Medicine; Referring Provider Internal Medicine; Visit Provider Urology
DX: C61 Malignant neoplasm of prostate (principal); R73.02 Impaired glucose tolerance (oral); E78.00 Pure hypercholesterolemia, unspecified; Z12.5 Encounter for screening for malignant neoplasm of prostate
CPT/HCPCS: 36415; 80053; 80061; 82607; 82728; 82746; 83036; 83540; 84153; 84403; 84439; 84443; 84550; 85025; 85045

== ENCOUNTER 2023-09-24 14:16 | Outpatient (REF) | payer MEDICARE, OTHER, SELFPAY ==
--- NOTE | ~2023-09-24 | FL_ITS ---
EXAMINATION: Modified Barium Swallow. CLINICAL INFORMATION: Dysphagia. COMPARISON: None. TECHNIQUE: Modified barium swallow was performed under lateral fluoroscopy with patient in standing position. Barium mixed with differing consistencies of liquids and solids was administered by the speech pathologist. Examination was recorded in the fluoroscopy suite. FINDINGS: There is trace laryngeal penetration with all liquid consistencies of barium. No aspiration was observed. FLUOROSCOPY TIME: 1 minute 20 seconds Number of Spot Images: 1 spot image hold. DOSE AREA PRODUCT: 679.6 uGy-m2 (microgray-meter squared) FL/FL barium swallow modified IMPRESSION: Trace laryngeal penetration with all liquid consistencies of barium. No aspiration was observed. Refer to the speech therapy report for further clarification This procedure was performed by Enoch Feng PA-C, and supervised by Dr. Howard
--- NOTE | 2023-09-25 10:15 | MHC.SL.IMP ---
Date of Plan of Treatment: 09/24/23 Onset of Symptoms/Illness: 10/12/21 Date Treatment Started: 09/24/23 Admitting Diagnosis: Dysphagia Primary Speech & Language Diagnosis: R13.10 Dysphagia Reason for Today's Visit: 45290 Modified Barium Swallow Study Pre-evaluation Dietary Consistencies: Regular Pre-evaluation Liquid Consistency: Thin Pre-evaluation Medication Administration: Whole with Liquid Medical History: Modified Barium Swallow Study Fluoroscopic Evaluation of Swallowing Function CPT Code 14776 Evaluation Year: 2023 Reason for Study: Difficulty swallowing Referring Physician: Ken Allen MD Evaluating Clinician: Mely Johnson MA, CCC-FIRE MANAGEMENT SPECIALIST Study Number: 1 Patient Name: Deacon Keyes Status: Outpatient, Ambulatory Age: 82 Gender: Male Medical History Medical History (Updated 08/01/23 @ 15:32 by Leila Merida MD) Dental abscess Dysphagia Elevated PSA Abrasion Bursitis of left shoulder Joint pain Effusion, left knee Prostate nodule Microscopic hematuria Bladder outlet obstruction Pes anserinus bursitis of right knee Effusion, right knee Ventricular tachycardia Ischemic cardiomyopathy Atherosclerotic cardiovascular disease Cardiomyopathy Pacemaker ILD (interstitial lung disease) Pulmonary nodules COPD (chronic obstructive pulmonary disease) Bursitis of right shoulder Medial meniscus tear Osteoarthritis of right knee Surgical History History of carpal tunnel release History of cholecystectomy History of tonsillectomy History of colonoscopy Current (pre-evaluation) Intake/Diet: Route: PO Diet Grade: Regular Liquid Consistencies: Thin Pre-Study Functional Oral Intake Scale (FOIS): 7- Total oral intake with no restrictions Pain: None reported at time of study SUBJECTIVE: Patient is an 82 year old male referred for a modified barium swallow study by Dr. Ken Allen of [facility] after patient complained of having trouble swallowing. Patient states his is more concerned about his swallow than he is, as patient often clears his throat when eating. Patient reports only having trouble with certain foods, such as raw carrots and apples and that he ?has to remember to chew meats.? Patient says these foods get stuck in his throat and that he must take sips of his drink to make it go down. Patient otherwise denies odynophagia and globus sensation, and eats a regular texture diet. Oral Motor Exam Facial Symmetry: Symmetrical Mouth Occlusion: Normal Oral-Facial Teeth Characteristics: Intact/Normal Oral-Facial Smile (Lips) Description: Normal Oral-Facial Puff Cheeks Description: Normal Tongue Size: Normal Tongue Excursion Description: Normal Tongue Range of Movement Description: Normal Tongue Speed of Movement Description: Normal Tongue Strength of Movement (against opposing pressure): Normal Tongue Movement Characteristics: Normal/Absent Is patient able to manage secretions?: Yes Is patient able to produce volitional cough?: Yes Food and Liquid Trials: Oral Impairment: Lip Closure: 0=No labial escape Oral Impairment: Tongue Control During Bolus Hold: 2=Posterior escape of less than half of bolus Oral Impairment: Bolus Preparation/Mastication: 1=Slow prolonged chewing/mashing with complete re-collection Oral Impairment: Bolus Transport/Lingual Motion: 3=Repetitive/disorganized tongue motion Oral Impairment: Oral Residue: 2=Residue collection on oral structures Oral Impairment:Initiation of Pharyngeal Swallow: 3=Bolus head in pyriforms Pharyngeal Impairment: Soft Palate Elevation: 0=No bolus between soft palate (SP)/pharyngeal wall (PW) Pharyngeal Impairment: Laryngeal Elevation: 1=Partial thyroid cartilage/arytenoids to epiglottic petiole movement Pharyngeal Impairment: Anterior Hyoid Excursion: 1=Partial anterior movement Pharyngeal Impairment: Epiglottic Movement: 1=Partial inversion Pharyngeal Impairment: Laryngeal Vestibular Closure:: 1=Incomplete: narrow column air/contrast in laryngeal vestibule Pharyngeal Impairment: Pharyngeal Stripping Wave: 1=Present: diminished Pharyngeal Impairment: Pharyngeal Contraction: Did not test Pharyngeal Impairment: Pharyngoesophageal Segment Openin=Partial distention/partial duration: partial obstruction of flow Pharyngeal Impairment: Tongue Base (TB) Retraction: 2=Narrow column of contrast/air between TB and posterior PW Pharyngeal Impairment: Pharyngeal Residue: 2=Collection of residue within or on pharyngeal structures Pharyngeal Impairment: Esophageal Clearance Upright Position: Did not test Impressions and Recommendations OBJECTIVE: Time-out: performed at 15:00 Evaluation Start: 14:30; Stop: 14:35 Patient Positioning: Standing Viewing Planes: LATERAL ONLY Contrast: MBSImP? Standardized Protocol using commercially prepared, standardized Barium viscosities, including: Varibar? THIN LIQUID (40% w/v, <15 cps) , Varibar? NECTAR (40% w/v, <150-450 cps) , 1/2 Shortbread Cookie (1 x1 x.25 ) MBSImP ID: [id number] [facility] Results: Lip closure for intraoral bolus containment resulted in no labial escape. Tongue control during bolus hold resulted in posterior escape of less than half of the bolus. Bolus preparation and mastication resulted in slow, prolonged chewing/mashing but with complete re-collection. Bolus transport/lingual motion was with repetitive/disorganized motion of the tongue. Oral residue was a collection on oral structures. Initiation of the pharyngeal swallow occurred when the bolus head was in the pyriform sinuses. Soft palate elevation resulted in no bolus between the soft palate and the pharyngeal wall. Laryngeal elevation was decreased, with partial superior movement of the thyroid cartilage/partial approximation of the arytenoids to the epiglottic petiole. Anterior hyoid excursion demonstrated partial anterior movement. Epiglottic movement resulted in partial inversion. Laryngeal vestibular closure was incomplete, with a narrow column of air/contrast noted within the laryngeal vestibule at the height of the swallow. Pharyngeal stripping wave was present, but diminished. Pharyngeal contraction could not be determined due to logistical reasons not related to physiologic impairment. Pharyngoesophageal segment opening demonstrated partial distension/partial duration, with partial obstruction of bolus flow. Tongue base retraction allowed a narrow column of contrast or air between the retracted tongue base and the posterior pharyngeal wall. Pharyngeal residue was a collection of residue within or on pharyngeal structures. Esophageal clearance in the upright position could not be assessed due to logistical reasons not related to physiologic impairment. Oral Impairment Score: 11 Pharyngeal Impairment Score: 10 (absence of score, component 13) Esophageal Impairment Score: --- (absence of score, component 17) Laryngeal Penetration and Aspiration: Penetration was observed in today's study. Puree, [place]-thick, Thin Contrast entered the airway, remained above the vocal folds, and were ejected from the airway. ASSESSMENT: This exam was performed by the speech pathologist and the radiologist. Pt was standing for lateral view and trialed thin, nectar thick, puree, and regular solid consistencies. Patient demonstrated good labial closure with no spillage beyond the amado border. Mastication was mildly slowed and prolonged. AP transport was delayed in initiation, with at times repetitive tongue rocking movements. There was premature posterior escape of less than 50% of bolus which pooled in the valleculae and pyriforms prior to initiation of the pharyngeal swallow. Pharyngeal swallow trigger was delayed, initiated at the level of the pyriforms. There was mild to moderate residue on the tongue, which mostly cleared with multiple dry swallows and sips of liquid. Partial laryngeal elevation with incomplete epiglottic inversion. With all liquid consistencies and puree, there was trace penetration above the vocal folds during the swallow, which spontaneously ejected from the airway. On one occasion, patient was cued to clear his throat with nectar thick contrast which had entered the airway and subsequently cleared. No evidence of aspiration during this exam. There was a moderate level of retention on the tongue base, in the valleculae, and on the posterior pharyngeal wall, mostly cleared with sips of liquid. Also noted partial distention/partial obstruction of flow through the PES. Liquid Intake Recommendation: Thin Liquid Intake Strategies: Small Sips, No Straws Dietary Recommendations: Regular Medication Administration: Whole with Puree Please contact the pharmacy regarding appropriate crushable or liquid drug formulations that are available whenever modified delivery is recommended. Compensatory Strategies Recommended: Sitting Upright (90 deg), Double Swallow, No Straw, Small Bites and Sips, Alternate Liquids/Solids, Rate of Ingestion Change, Avoid Specific Foods Supervision during eating and or drinking: None Needed Recommendation for Speech Therapy: NA:Typical Evaluation Text Comment: PLAN: Intake Recommendations: Route: PO Diet Grade: Regular- Select soft and easy to chew foods Liquid Consistencies: Thin Post-Study Functional Oral Intake Scale (FOIS): 6- Total oral intake with no special preparation, but must avoid specific foods or liquid items Exam revealed mild to moderate oropharyngeal dysphagia. Slowed and delayed oral phase. There was trace penetration above the vocal folds intermittently with thin, nectar thick, and puree consistencies. No evidence of aspiration during this exam. Mild to moderate residue noted in the oral and pharyngeal cavities, which mostly cleared with dry swallows and sips of liquid. Patient is recommended to continue on regular texture diet, selecting softer and easier to chew foods. The following strategies are recommended to maximize safety: -Avoid mixed consistencies; foods that are tough/hard to chew or sticky -Take one small bite at a time -Dry swallow between bites to promote oral and pharyngeal clearance -Take small, individual sips of liquid by teaspoon or cup -Avoid the use of straws -After taking sip, clear throat -Maintain 90 degree position during PO intake and for at least 30 minutes afterwards Therapy Recommendations: Based on results of this exam, continued speech therapy services are not warranted at this time. Please re-refer if there are any changes or worsening of symptoms. Clinician - Supplemental, Miscellaneous Communication: It is important to note MBSS objective studies are snapshots in time and Patient function might vary with factors such as time of day or concomitant medical conditions. For this reason, the final treatment plan for this patient should rest with their medical care team. Additional recommendations should be considered with the totality of the Patient in mind. Thank for the opportunity to participate in the care of this patient. If you have any questions about the content of this report, please contact the [facility] at [facility]. Education: Education regarding findings from today's study and plans for therapy were provided to Patient only through Verbal Instruction. Understanding was expressed by the Patient only. Dot Compliance Manager Clinician/Clinical Fellow: No Supervisory Statement: N/A Speech Language Pathologist: Mely Johnson M.A., CCC-FIRE MANAGEMENT SPECIALIST
== END 2023-09-24 14:17 | disposition home or self-care (01) ==
LOC: HO.XRAY 14:16
PROVIDERS: Visit Provider Hospitalist
DX: R05.9 Cough, unspecified (principal); R13.10 Dysphagia, unspecified
CPT/HCPCS: 74230; 92611

== ENCOUNTER → 2023-09-24 14:18 | Outpatient (BNV) | payer MEDICARE, OTHER, SELFPAY | PROVIDERS: Visit Provider Physician Assistant Surgical | DX: R13.10 Dysphagia, unspecified (principal) | CPT/HCPCS: 74230 ==

== ENCOUNTER 2023-09-26 13:07 | Outpatient (AMB) | payer MEDICARE, OTHER, SELFPAY ==
--- NOTE | 2023-09-26 13:07 | A.OFFVIS_ITS ---
Intake Intake Visit Reasons: PSA/Testosterone(set) confirmed Intake Note: Patient presents today for a follow-up on PSA/ Testosterone Meds- Tamsulosin Allergies to Antibiotic- No Known Allergies Blood Thinner- Aspirin [employer] Advisor Required: No Allergies No Known Allergies [No Known Allergies*] Allergy (Verified 09/26/23 13:09) Medication List - Last Reconciled 09/26/23 by Husam Guerra MD albuterol sulfate 90 mcg/actuation 2 puffs inhalation Q6H PRN alendronate 70 mg PO SA allopurinol 100 mg PO DAILY amiodarone 200 mg PO DAILY aspirin 81 mg PO DAILY atorvastatin 40 mg PO BEDTIME calcium carbonate (Calcium 500) 500 mg PO DAILY cholecalciferol (vitamin D3) (Vitamin D3) 25 mcg PO DAILY clopidogrel 75 mg PO DAILY fluticasone propion-salmeterol 250-50 mcg/dose 1 inh inhalation Q12H 30 days fluticasone propionate 50 mcg/actuation 2 sprays intranasal DAILY 30 days fblyxzwnvqs-yzbpqxygq-zoexmump 200-62.5-25 mcg (Trelegy Ellipta) 1 inh inhalation DAILY 30 days montelukast (Singulair) 10 mg PO BEDTIME 30 days sacubitril-valsartan 49-51 mg (Entresto) 1 tab PO BID tamsulosin 0.4 mg PO BEDTIME HPI HPI Comments History of Present Illness Details Deacon is a very pleasant male. He is a patient of Dr Pierre. He is seen for the following urologic conditions. - prostate cancer Telemedicine Evaluation 15 min Consultation Doximity Watson Video attempted PSA remains undetectable 11/05 P <0.1 T 3, 03/07 P <0.1, 09/08 < 0.1 Prostate cancer high grade, high volume diagnosed February 2021 PSA 18 PSA 10/04 <0.1, 01/04 <0.1 5, 04/06 <0.1 5, 08/07 <0.1 T3 Prostate cancer diagnosed by Dr. 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 4+4=8 (A,C,D,F,G,H,J); 4+5=9 (B, I, K, L) Tumor quantitation: Number cores positive:??11 Total number of cores:??12 Periprostatic fat inv.: Not identified. Seminal vesicle inv.: Not identified. Perineural inv.: Present. LVI: Not identified GnRH initial March 242020 after bicalutamide run in with finasteride - 08/07 completed finasteride Staging 04/05 CT scan no evidence of tru diseas e 04/05 bone scan no evidence of metastatic disease 10/03 DEXA scan osteopenia from long-term steroid use PFSH Medical History Dental abscess Dysphagia Elevated PSA Abrasion Bursitis of left shoulder Joint pain Effusion, left knee Prostate nodule Microscopic hematuria Bladder outlet obstruction Pes anserinus bursitis of right knee Effusion, right knee Ventricular tachycardia Ischemic cardiomyopathy Atherosclerotic cardiovascular disease Cardiomyopathy Pacemaker ILD (interstitial lung disease) Pulmonary nodules COPD (chronic obstructive pulmonary disease) Bursitis of right shoulder Medial meniscus tear Osteoarthritis of right knee Surgical History History of carpal tunnel release History of cholecystectomy History of tonsillectomy History of colonoscopy Family History Father No problems noted. Mother No problems noted. Son No problems noted. Social History Household Members: Spouse Housing: Condominium Do you presently have visiting nurse or other home services: No Alcohol intake: current Alcohol intake frequency: does not drink Alcohol type: beer Comment: once Q 3-6 month glass of wine Patient Tobacco Use Status: Former Tobacco user Tobacco use type: Cigarette Years Smoked: 30 years Advance Directives Date on File: 06/24/23 service: No Current occupational status: retired 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 Cognitive needs: No Hearing needs: Yes Vision needs: Yes Review of Systems Const All systems reviewed & are unremarkable except as noted in HPI and below Reports no additional complaints Resp Reports no additional complaints GI Reports no additional complaints Reports as per HPI Musc Reports no additional complaints Physical Exam Telemedicine evaluation Appropriate responses Regular breathing rate and rhythm HEENT Head: Yes normal to inspection Ears: hearing grossly normal bilaterally Eyes General: appearance normal, both eyes and all related structures Neck Neck: Yes normal visual inspection Chest Chest palpation & inspection: normal inspection of the chest Resp Effort & Inspection: normal respiratory effort and able to speak in complete sentences Assessment & Plan Assessment & Plan (1) Hot flashes related to aromatase inhibitor therapy: Code(s): R23.2 - [place]; T45.1X5A - Adverse effect of antineoplastic and immunosuppressive drugs, initial encounter (2) Prostate cancer: Comment: 04/05 High-grade, moderate volume, localized disease Initial therapy external beam radiation with [facility] August 2021 Code(s): C61 - Malignant neoplasm of prostate Plan Six-month follow-up PSA Orders: Orders Prostate Specific Antigen 6 Months C61 - Malignant neoplasm of prostate Testosterone, Total 6 Months C61 - Malignant neoplasm of prostate Patient Instructions: Imaging studies, laboratory and physical exam results were discussed and reviewed in detail. No major barriers to patient understanding were identified. An opportunity to ask questions regarding the treatment plan was provided. All questions were answered. The patient expressed understanding and agreement with the above treatment plan. The patient is aware they should contact our office by phone for worsening of their current condition or the appearance of new urologic symptoms. Compliance is encouraged with any medications and followup testing that is ordered. It is a privilege to participate in the urologic care of your patient. If you have any questions or concerns regarding treatment for the above conditions, or other urologic issues, please do not hesitate to contact me. The office telephone contact is [phone]. This note is constructed using voice recognition software. While every effort has been made to ensure accuracy roll on worker errors may have been included. Yours sincerely, Dr Husam Guerra MD, [facility] - Urology Providers of Expert, Compassionate Care for the Genitourinary System Telehealth Telehealth Location of provider rendering services: practice address Location of patient: address on file Patient Identification confirmed using: Name, : Yes Telehealth method: video Patient verbally consented to treatment: Yes Patient verbally consented to billing insurance company: Yes Patient informed of any privacy concerns related to visit: Yes Coding Level of Care Code Tele Est Pt Level 3 (48106) Diagnoses Hot flashes related to aromatase inhibitor therapy R23.2; T45.1X5A Prostate cancer C61
== END 2023-09-26 15:22 | disposition home or self-care (01) ==
LOC: HO.HUSH 13:07
PROVIDERS: PCP Internal Medicine; Visit Provider Urology
DX: R23.2 Flushing (principal); T45.1X5A Adverse effect of antineoplastic and immunosuppressive drugs, initial encounter; C61 Malignant neoplasm of prostate
CPT/HCPCS: 99213

== ENCOUNTER → 2023-09-26 13:07 | Outpatient (BNVA) | payer MEDICARE, OTHER, SELFPAY | PROVIDERS: PCP Internal Medicine; Visit Provider Urology ==

== ENCOUNTER → 2023-10-19 23:59 | Outpatient (BNV) | payer MEDICARE, OTHER, SELFPAY ==
--- NOTE | 2023-10-29 19:03 | A.OFFVIS_ITS ---
Intake Intake Visit Reasons: Remote HF monitoring- [employer] Allergies No Known Allergies [No Known Allergies*] Allergy (Verified 09/26/23 13:09) PFS Medical History Dental abscess Dysphagia Elevated PSA Abrasion Bursitis of left shoulder Joint pain Effusion, left knee Prostate nodule Microscopic hematuria Bladder outlet obstruction Pes anserinus bursitis of right knee Effusion, right knee Ventricular tachycardia Ischemic cardiomyopathy Atherosclerotic cardiovascular disease Cardiomyopathy Pacemaker ILD (interstitial lung disease) Pulmonary nodules COPD (chronic obstructive pulmonary disease) Bursitis of right shoulder Medial meniscus tear Osteoarthritis of right knee Surgical History History of carpal tunnel release History of cholecystectomy History of tonsillectomy History of colonoscopy Family History Father No problems noted. Mother No problems noted. Son No problems noted. Social History Household Members: [facility] Do you presently have visiting nurse or other home services: No Alcohol intake: current Alcohol intake frequency: does not drink Alcohol type: beer Comment: once Q 3-6 month glass of wine Patient Tobacco Use Status: Former Tobacco user Tobacco use type: Cigarette Years Smoked: 30 years Advance Directives Date on File: 06/24/23 service: No Current occupational status: retired 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 Cognitive needs: No Hearing needs: Yes Vision needs: Yes Office Procedures Cardiac Device Check Cardiac Device Check Details: Date of service- 10/19/2023; based on impedance data and physiological variables, there is no evidence of worsening congestive heart failure. [id number] Cardiac Device Interrogation, cardio physiologic monitor Procedure code (CPT) selection complete Assessment & Plan Assessment & Plan (1) Ischemic cardiomyopathy: Comment: Ischemic January 2021 Code(s): I25.5 - Ischemic cardiomyopathy Plan: x Coding Level of Care Code Procedure Only Diagnoses Ischemic cardiomyopathy I25.5 CPT Codes Cardiac Device Check - Cardiac Device 15: [id number] Cardiac Device Interrogation, cardio physiologic monitor ([id number])
== END ==
PROVIDERS: PCP Internal Medicine; Visit Provider Internal Medicine
DX: I25.5 Ischemic cardiomyopathy (principal); Z95.810 Presence of automatic (implantable) cardiac defibrillator
CPT/HCPCS: 93297

== ENCOUNTER 2023-11-05 12:50 | Outpatient (AMB) | payer MEDICARE, OTHER, SELFPAY ==
[2023-11-05 13:07] VITALS: BP 118/68; PULSE 75; O2SAT 98; BMI 26.3
--- NOTE | 2023-11-05 13:07 | A.OFFVIS_ITS ---
Vital Signs 11/05/23 13:07 Height 5 ft 6 in Weight 163 lb BMI 26.3 BP 118/68 Blood Pressure Location Lt brachial Position Sitting Pulse 75 Pulse Source Monitor Pulse Oximetry (%) 98 Oxygen Delivery Method Room Air Intake Visit Reasons: 3 mth f/up and bioronik device Allergies No Known Allergies [No Known Allergies*] Allergy (Verified 09/26/23 13:09) Medication List - Last Reconciled 11/05/23 by Joey Flaherty MD albuterol sulfate 90 mcg/actuation 2 puffs inhalation Q6H PRN alendronate 70 mg PO SA allopurinol 100 mg PO DAILY amiodarone 200 mg PO DAILY aspirin 81 mg PO DAILY atorvastatin 40 mg PO BEDTIME calcium carbonate (Calcium 500) 500 mg PO DAILY cholecalciferol (vitamin D3) (Vitamin D3) 25 mcg PO DAILY clopidogrel 75 mg PO DAILY fluticasone propion-salmeterol 250-50 mcg/dose 1 inh inhalation Q12H 30 days fluticasone propionate 50 mcg/actuation 2 sprays intranasal DAILY 30 days elwwaoyehao-ttmnwoymy-cyjaaukx 200-62.5-25 mcg (Trelegy Ellipta) 1 inh inhalation DAILY 30 days montelukast (Singulair) 10 mg PO BEDTIME 30 days sacubitril-valsartan 49-51 mg (Entresto) 1 tab PO BID tamsulosin 0.4 mg PO BEDTIME HPI Comments Details: Deacon returns for follow-up. Previously, patient of [facility] but switched over to us for convenience. To recall, he was recently in the hospital for a possible stroke. He seems to have recovered well in that regard and does not have any overt deficits. He is on dual antiplatelet therapy. Otherwise, no cardiac symptoms like angina or shortness of breath or in fact anything cardiac related at this time. Previously, going to [facility]. Those records were reviewed. He has a history of myocardial infarction many years ago with an ischemic cardiomyopathy/large anterior/apical scar. He had a pacemaker due to multiple syncopal episodes. Then it seems that he was noted to have VT episodes on pacemaker and hence required ICD upgrade. No issues in that regard. He still takes amiodarone. [facility] Medical History Dental abscess Dysphagia Elevated PSA Abrasion Bursitis of left shoulder Joint pain Effusion, left knee Prostate nodule Microscopic hematuria Bladder outlet obstruction Pes anserinus bursitis of right knee Effusion, right knee Ventricular tachycardia Ischemic cardiomyopathy Atherosclerotic cardiovascular disease Cardiomyopathy Pacemaker ILD (interstitial lung disease) Pulmonary nodules COPD (chronic obstructive pulmonary disease) Bursitis of right shoulder Medial meniscus tear Osteoarthritis of right knee Surgical History History of carpal tunnel release History of cholecystectomy History of tonsillectomy History of colonoscopy Family History Father No problems noted. Mother No problems noted. Son No problems noted. Social History Household Members: [facility] Do you presently have visiting nurse or other home services: No Alcohol intake: current Alcohol intake frequency: does not drink Alcohol type: beer Comment: once Q 3-6 month glass of wine Patient Tobacco Use Status: Former Tobacco user Tobacco use type: Cigarette Years Smoked: 30 years Advance Directives Date on File: 06/24/23 service: No Current occupational status: retired 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 Cognitive needs: No Hearing needs: Yes Vision needs: Yes Review of Systems Const Denies weakness ENT Denies dizziness Card Denies chest pain, Denies chest pain with activity, Denies syncope, Denies rapid heart rate, Denies pedal edema, Denies edema, Denies leg edema, Denies lightheadedness, Denies palpitations, Denies dyspnea, Denies dyspnea on exertion and Denies orthopnea Resp Denies cough, Denies dyspnea and Denies dyspnea on exertion GI Denies hematochezia and Denies change in stool character Musc Denies abnormal gait, Denies muscle cramps, Denies muscle weakness, Denies numbness, Denies radiating pain into limb and Denies tingling Neuro Denies abnormal gait, Denies dizziness, Denies syncope, Denies numbness, Denies tingling and Denies weakness Endo Denies palpitations Physical Exam Vital Signs: Last Vital Signs Pulse 75 11/05/23 13:07 BP 118/68 11/05/23 13:07 Pulse Ox 98 11/05/23 13:07 Oxygen Delivery Method Room Air 11/05/23 13:07 BMI result Body Mass Index 26.3 Const General: comfortable and no acute distress Orientation/consciousness: patient oriented x3 HEENT Other: Unremarkable Head: Yes normal to inspection Neck Neck: Yes normal visual inspection Chest Chest palpation & inspection: normal inspection of the chest Resp Auscultation: clear to auscultation bilaterally Cardio Palpation: normal PMI Heart sounds: S1 normal heart sound present, S2 normal heart sound present, no gallops, no murmurs and no rubs GI Palpation (GI): Soft to palpation Back/Spine/Pelvis Other: unremarkable Skin General skin exam: no rashes or lesions noted Neuro General: patient oriented x3 Extrem General: Yes normal to inspection Psych Mental Status: mental status grossly normal Office Procedures Cardiac Device Check Cardiac Device Check Details: ICD interrogated today. Dual-chamber device, programmed DDD-CLS mode. Normal lead parameters. No significant arrhythmias. Atrial pacing about 60%. Ventricular pacing 2%. No shocks delivered. Overall, normal device function. [id number] Cardiac Device Check, dual lead implantable defibrillator Procedure code (CPT) selection complete EKG Details: EKG with sinus rhythm at 75/Min; can not exclude old septal infarct; no significant ST-T changes; [place]. [id number], Complete Assessment & Plan Assessment & Plan (1) Atherosclerotic cardiovascular disease: Code(s): I25.10 - Atherosclerotic heart disease of [place] coronary artery without angina pectoris Category: Medical Plan: Had coronary disease in , anterior AR complicated by cardiac arrest. Single-vessel LAD on catheterization then. No PCI performed. Clinically, he does not really have any angina. On aspirin and statins. Most recent LDL 55 mg/dL. Nuclear stress test from [facility], 01/2023, with report of LAD territory infarct with mild eric-infarct ischemia. (2) Ischemic cardiomyopathy: Code(s): I25.5 - Ischemic cardiomyopathy Category: Medical Plan: Clinically, no heart failure symptoms or signs. Recent echocardiogram with LVEF of 40-45% with LAD wall motion abnormality. (3) Ventricular tachycardia: Code(s): I47.20 - Ventricular tachycardia, unspecified Category: Medical Plan: Per prior cardiology note, had a long run of VT, self-terminated. No status post ICD. He was also placed on amiodarone. In the absence of any recurrent ventricular arrhythmias, we can stop Amiodarone and monitor. (4) Presence of implantable cardioverter-defibrillator (ICD): Code(s): Z95.810 - Presence of automatic (implantable) cardiac defibrillator Category: Surgical Plan: Normal functioning ICD. Will follow-up on remote monitoring. In the past, it seems that he actually had sick sinus syndrome and then had a pacemaker which was then upgraded to ICD based on VT episodes. (5) CVA (cerebral vascular accident): Comment: Middle cerebral artery ischemic Code(s): I63.9 - Cerebral infarction, unspecified Category: Medical Plan: Per recent CT, acute infarct in the right MCA territory. Atheromatous plaque involving both carotid bifurcations/internal carotid arteries. He has been put on Plavix in addition to aspirin.
== END 2023-11-05 13:35 | disposition home or self-care (01) ==
LOC: HO.HCS 12:50
PROVIDERS: PCP Internal Medicine; Visit Provider Internal Medicine
DX: I25.10 Atherosclerotic heart disease of native coronary artery without angina pectoris (principal); I25.5 Ischemic cardiomyopathy; I47.20 Ventricular tachycardia, unspecified; Z95.810 Presence of automatic (implantable) cardiac defibrillator; I63.9 Cerebral infarction, unspecified
CPT/HCPCS: 93010; 93283; 99214

== ENCOUNTER → 2023-11-05 12:50 | Outpatient (BNVA) | payer MEDICARE, OTHER, SELFPAY | PROVIDERS: PCP Internal Medicine; Visit Provider Internal Medicine | DX: Z45.02 Encounter for adjustment and management of automatic implantable cardiac defibrillator (principal); I25.10 Atherosclerotic heart disease of native coronary artery without angina pectoris; I25.5 Ischemic cardiomyopathy; I47.20 Ventricular tachycardia, unspecified; I63.9 Cerebral infarction, unspecified | CPT/HCPCS: 93005; 99212 ==

== ENCOUNTER 2023-11-07 09:59 | Outpatient (AMB) | payer MEDICARE, OTHER, SELFPAY ==
[2023-11-07 10:02] VITALS: PULSE 81; O2SAT 93; BMI 26.3
--- NOTE | 2023-11-07 10:02 | A.OFFVIS_ITS ---
Vital Signs 11/07/23 10:02 Height 5 ft 6 in Weight 162 lb 14.746 oz BMI 26.3 Pulse 81 Pulse Source Pulse Oximeter Pulse Oximetry (%) 93 Oxygen Delivery Method Room Air Intake Visit Reasons: COPD [employer] Required: No Allergies No Known Allergies [No Known Allergies*] Allergy (Verified 11/07/23 10:03) HPI Comments Details: The patient is a 83-year-old gentleman known COPD not in any respiratory therapy at this time. He had a period in time where he developed C diff colitis abdominal pain and complicated by pneumonia. He has since improved. When he was admitted to the [facility] he did undergo a CT scan of the chest ruling out PE but did find a pulmonary nodule in his right lung. But 6 mm in size. Had a repeat CT scan from month later and the nodule was still present. More recently he did have issues with hematuria. The sense improved, but, he did have a CT scan of the abdomen that demonstrated some of the lung windows did not go up to the level of the nodule. The patient has been having some coughing. The cough is usually associated with some mucus. [id number] severity. He has been taking Mucinex with good effect. Otherwise is doing good no weight loss no night sweats no fatigue. 05/03/2023 the patient is here for pulmonary follow-up visit. Overall he is doing better from a respiratory status. He continues uses Trelegy inhaler all those very expensive for him. [facility] of [facility] for the medication. Clinically the patient is doing better so will try to deescalate his respiratory therapy in hopes that he can find something more financially reasonable. He also has a pacemaker and apparently a cardiac arrhythmia that was concerning. The patient is scheduled to undergo a defibr illator at this time. His last CT scan of the chest was back in 2021 demonstrating emphysema and also interstitial lung disease. The pulmonary nodules were not seen. The patient has been complaining of a cough. The cough for the most part is nonproductive in nature. Likely upper airway cough syndrome. Will try using nasal therapy to try to minimize the postnasal drip. His pharynx appeared to be erythematous. There was 1 area that appeared to be little bit more pale. 11/07/2023 the patient is here for pulmonary follow-up visit. He is complaining of worsening cough. For the last about 4 weeks. Moderate severity. At times bringing up phlegm. He has been taking Mucinex with some partial improvement. He also continues on the Trelegy inhaler which appears to be affecting beneficial. He feels that he is positive having some allergies. He has not been using the Singulair. Does have significant nasal congestion and postnasal drip. No recent imaging studies to review. The patient has not had any allergy testing. On examination does have significant postnasal drip likely a component of sinusitis. [facility] Medical History (Updated 11/07/23 @ 20:30 by Ken Allen MD) Allergies Dental abscess Dysphagia Elevated PSA Abrasion Bursitis of left shoulder Joint pain Effusion, left knee Prostate nodule Microscopic hematuria Bladder outlet obstruction Pes anserinus bursitis of right knee Effusion, right knee Ventricular tachycardia Ischemic cardiomyopathy Atherosclerotic cardiovascular disease Cardiomyopathy Pacemaker ILD (interstitial lung disease) Pulmonary nodules COPD (chronic obstructive pulmonary disease) Bursitis of right shoulder Medial meniscus tear Osteoarthritis of right knee Surgical History History of carpal tunnel release History of cholecystectomy History of tonsillectomy History of colonoscopy Family History Father No problems noted. Mother No problems noted. Son No problems noted. Social History Household Members: [facility] Do you presently have visiting nurse or other home services: No Alcohol intake: current Alcohol intake frequency: does not drink Alcohol type: beer Comment: once Q 3-6 month glass of wine Patient Tobacco Use Status: Former Tobacco user Tobacco use type: Cigarette Years Smoked: 30 years Advance Directives Date on File: 06/24/23 service: No Current occupational status: retired 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 Cognitive needs: No Hearing needs: Yes Vision needs: Yes Review of Systems Const Denies night sweats ENT Denies change in voice, Denies lip swelling, Denies mouth pain, Reports nasal congestion, Reports nasal discharge, Reports post nasal drip and Denies tongue swelling Card Denies chest pain Resp Reports change in phlegm color and Reports cough GI Denies abdominal pain Reports as per HPI Musc Reports arthralgias, Reports limited range of motion and Reports stiffness Neuro Denies Neuro-related abnormal movements Psych Denies no additional complaints Rod/Lymph Denies easy bleeding and Denies lymphadenopathy Aller/Immun Denies lip swelling and Denies tongue swelling Physical Exam Vital Signs: Last Vital Signs Pulse 81 11/07/23 10:02 Pulse Ox 93 11/07/23 10:02 Oxygen Delivery Method Room Air 11/07/23 10:02 BMI result Body Mass Index 26.3 Const General: alert HEENT General nose exam: Abnormal external nose present and Nasal discharge present Throat: Yes posterior oropharynx abnormal, Yes postnasal drainage and Yes cobblestoning Eyes Pupils: Equal, round and reactive pupils present Neck Neck: Yes normal visual inspection, Yes full ROM and Yes no lymphadenopathy Chest Chest palpation & inspection: normal inspection of the chest Resp Auscultation: diminished lung sounds Cardio Rate: regular rate Rhythm: regular rhythm Heart sounds: S1 normal heart sound present and S2 normal heart sound present GI Palpation (GI): Soft to palpation and nontender Auscultation: normal bowel sounds General: Yes no CVA tenderness Back/Spine/Pelvis Back: no CVA tenderness Skin General skin exam: rashes and/or lesions noted Neuro Cranial nerves: Yes Equal, round and reactive pupils present Assessment & Plan Assessment & Plan (1) COPD (chronic obstructive pulmonary disease): Code(s): J44.9 - Chronic obstructive pulmonary disease, unspecified Category: Medical Qualifiers: COPD type: chronic bronchitis Chronic bronchitis type: simple Qualified Code(s): J41.0 - Simple chronic bronchitis (2) Pulmonary nodules: Code(s): R91.8 - Other nonspecific abnormal finding of lung field Category: Medical (3) Cough: Code(s): R05.9 - Cough, unspecified Category: Medical Qualifiers: Cough type: subacute Qualified Code(s): R05.2 - Subacute cough (4) Sinusitis: Code(s): J32.9 - Chronic sinusitis, unspecified Category: Medical Qualifiers: Sinusitis location: unspecified location Chronicity: subacute Qualified Code(s): J01.90 - Acute sinusitis, unspecified (5) Allergies: Code(s): T78.40XA - Allergy, unspecified, initial encounter Category: Medical Qualifiers: Encounter type: initial encounter Qualified Code(s): T78.40XA - Allergy, unspecified, initial encounter Plan continue Trelegy inhaler restart Singulair start doxy x 10 days neti bottle with distilled water only fluticasone nasal spray CXR allergy testing Follow-up in 6 months or sooner if no better Orders: Orders Immunoglobulin E Today J41.0 - Simple chronic bronchitis, R05.2 - Subacute cough, R91.8 - Other nonspecific abnormal finding of lung field, T78.40XA - Allergy, unspecified, initial encounter Erythrocyte Sedimentation Rate Today J41.0 - Simple chronic bronchitis, R05.2 - Subacute cough, R91.8 - Other nonspecific abnormal finding of lung field, T78.40XA - Allergy, unspecified, initial encounter XR chest 2V Today J41.0 - Simple chronic bronchitis, R05.2 - Subacute cough, R91.8 - Other nonspecific abnormal finding of lung field, T78.40XA - Allergy, unspecified, initial encounter Resp Allergy Profile Region I Today J41.0 - Simple chronic bronchitis, R05.2 - Subacute cough, R91.1 - Solitary pulmonary nodule, R91.8 - Other nonspecific abnormal finding of lung field, T78.40XA - Allergy, unspecified, initial encounter Complete Blood Count Auto Diff Today J41.0 - Simple chronic bronchitis, R05.2 - Subacute cough, R91.8 - Other nonspecific abnormal finding of lung field, T78.40XA - Allergy, unspecified, initial encounter Medications: New doxycycline hyclate 100 mg PO BID 10 days 20 caps 0RF Refilled montelukast (Singulair) 10 mg PO BEDTIME 30 days 30 tabs 11RF J45.909 - Unspecified asthma, uncomplicated Coding Level of Care Code Est Pt Level 4 (56458) Diagnoses 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 COPD type: chronic bronchitis Chronic bronchitis type: simple Pulmonary nodules R91.8 Subacute cough R05.2 Cough type: subacute Subacute sinusitis, unspecified location J01.90 Sinusitis location: unspecified location Chronicity: subacute Allergy, initial encounter T78.40XA Encounter type: initial encounter Time Spent (min) 16
== END 2023-11-07 10:45 | disposition home or self-care (01) ==
PROVIDERS: PCP Internal Medicine; Visit Provider Hospitalist
DX: J41.0 Simple chronic bronchitis (principal); R91.8 Other nonspecific abnormal finding of lung field; J01.90 Acute sinusitis, unspecified; T78.40XA Allergy, unspecified, initial encounter
CPT/HCPCS: 99214

== ENCOUNTER → 2023-11-07 09:59 | Outpatient (BNVA) | payer MEDICARE, OTHER, SELFPAY | PROVIDERS: PCP Internal Medicine; Visit Provider Hospitalist | DX: J41.0 Simple chronic bronchitis (principal); J01.90 Acute sinusitis, unspecified; R91.8 Other nonspecific abnormal finding of lung field; R05.2 Subacute cough; T78.40XA Allergy, unspecified, initial encounter | CPT/HCPCS: 99212 ==

== ENCOUNTER 2023-11-12 09:02 | Outpatient (REF) | payer MEDICARE, OTHER, SELFPAY ==
--- NOTE | ~2023-11-12 | XR_ITS ---
EXAMINATION: XR CHEST CLINICAL INFORMATION: Allergy. COMPARISON: Most recent chest radiograph dated 05/05/2023. TECHNIQUE: 2 views of the chest were obtained. FINDINGS: Left chest wall pacer/AICD with its leads overlying the right heart. Diffuse interstitial prominence, slightly more prominent when compared to the prior examination. Minimal bibasilar atelectasis. No confluent airspace consolidation. No pleural effusion or pneumothorax. Stable cardiomediastinal silhouette. Right upper quadrant surgical clips. XR/XR chest 2V IMPRESSION: Diffuse interstitial prominence, slightly more prominent when compared to the prior examination. Minimal bibasilar atelectasis. No confluent airspace consolidation.
== END 2023-11-12 09:03 | disposition home or self-care (01) ==
LOC: HO.XRAY 09:02
PROVIDERS: PCP Internal Medicine; Visit Provider Hospitalist
DX: T78.40XA Allergy, unspecified, initial encounter (principal); R91.8 Other nonspecific abnormal finding of lung field; J41.0 Simple chronic bronchitis
CPT/HCPCS: 71046

== ENCOUNTER 2023-11-16 09:44 | Outpatient (AMB) | payer MEDICARE, OTHER, SELFPAY ==
[2023-11-16 09:52] VITALS: PULSE 80; O2SAT 96
--- NOTE | 2023-11-16 09:52 | MHC.OFFVIS ---
Vital Signs 11/16/23 09:52 Weight 163 lb 2.273 oz Pulse 80 Pulse Source Pulse Oximeter Pulse Oximetry (%) 96 Oxygen Delivery Method Room Air Intake Visit Reasons: Prevnar 20 Allergies No Known Allergies [No Known Allergies*] Allergy (Verified 11/16/23 09:53) Medication List - Last Reconciled 11/16/23 by Angelique Hernandez LPN albuterol sulfate 90 mcg/actuation 2 puffs inhalation Q6H PRN alendronate 70 mg PO SA allopurinol 100 mg PO DAILY aspirin 81 mg PO DAILY atorvastatin 40 mg PO BEDTIME calcium carbonate (Calcium 500) 500 mg PO DAILY cholecalciferol (vitamin D3) (Vitamin D3) 25 mcg PO DAILY clopidogrel 75 mg PO DAILY doxycycline hyclate 100 mg PO BID 10 days fluticasone propionate 50 mcg/actuation 2 sprays intranasal DAILY 30 days edwuuhtwpyq-xhqyirwfp-jjxxiree 200-62.5-25 mcg (Trelegy Ellipta) 1 inh inhalation DAILY 30 days montelukast (Singulair) 10 mg PO BEDTIME 30 days sacubitril-valsartan 49-51 mg (Entresto) 1 tab PO BID tamsulosin 0.4 mg PO BEDTIME PFSH Medical History (Updated 11/07/23 @ 20:30 by Ken Allen MD) Allergies Dental abscess Dysphagia Elevated PSA Abrasion Bursitis of left shoulder Joint pain Effusion, left knee Prostate nodule Microscopic hematuria Bladder outlet obstruction Pes anserinus bursitis of right knee Effusion, right knee Ventricular tachycardia Ischemic cardiomyopathy Atherosclerotic cardiovascular disease Cardiomyopathy Pacemaker ILD (interstitial lung disease) Pulmonary nodules COPD (chronic obstructive pulmonary disease) Bursitis of right shoulder Medial meniscus tear Osteoarthritis of right knee Surgical History History of carpal tunnel release History of cholecystectomy History of tonsillectomy History of colonoscopy Family History Father No problems noted. Mother No problems noted. Son No problems noted. Social History Household Members: Spouse Housing: Condominium Do you presently have visiting nurse or other home services: No Alcohol intake: current Alcohol intake frequency: does not drink Alcohol type: beer Comment: once Q 3-6 month glass of wine Patient Tobacco Use Status: Former Tobacco user Tobacco use type: Cigarette Years Smoked: 30 years Advance Directives Date on File: 06/24/23 service: No Current occupational status: retired 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 Cognitive needs: No Hearing needs: Yes Vision needs: Yes Physical Exam Vital Signs: Last Vital Signs Pulse 80 11/16/23 09:52 Pulse Ox 96 11/16/23 09:52 Oxygen Delivery Method Room Air 11/16/23 09:52 Assessment & Plan Assessment & Plan (1) COPD (chronic obstructive pulmonary disease): Code(s): J44.9 - Chronic obstructive pulmonary disease, unspecified Category: Medical Qualifiers: COPD type: chronic bronchitis Chronic bronchitis type: simple Qualified Code(s): J41.0 - Simple chronic bronchitis Plan prevnar 20 Orders: Orders Pneumococcal 20 Immunization Today Z23 - Encounter for immunization Coding Level of Care Code Established Pt Est Pt Level 1 (11511) Patient Type Established Diagnoses 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 COPD type: chronic bronchitis Chronic bronchitis type: simple Comment NURSE VISIT ONLY
== END 2023-11-16 09:45 | disposition home or self-care (01) ==
LOC: HO.HPS 09:44
PROVIDERS: PCP Internal Medicine; Visit Provider Hospitalist
DX: Z23 Encounter for immunization (principal); J41.0 Simple chronic bronchitis

== ENCOUNTER → 2023-11-16 09:44 | Outpatient (BNVA) | payer MEDICARE, OTHER, SELFPAY | PROVIDERS: PCP Internal Medicine; Visit Provider Hospitalist | DX: J41.0 Simple chronic bronchitis (principal); Z23 Encounter for immunization | CPT/HCPCS: 90471; 90677; 99211 ==

== ENCOUNTER → 2023-11-23 23:59 | Outpatient (BNV) | payer MEDICARE, OTHER, SELFPAY ==
--- NOTE | 2023-11-27 14:59 | A.OFFVIS_ITS ---
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 Allergies No Known Allergies [No Known Allergies*] Allergy (Verified 11/16/23 09:53) [facility] Medical History (Updated 11/07/23 @ 20:30 by Kne Allen MD) Allergies Dental abscess Dysphagia Elevated PSA Abrasion Bursitis of left shoulder Joint pain Effusion, left knee Prostate nodule Microscopic hematuria Bladder outlet obstruction Pes anserinus bursitis of right knee Effusion, right knee Ventricular tachycardia Ischemic cardiomyopathy Atherosclerotic cardiovascular disease Cardiomyopathy Pacemaker ILD (interstitial lung disease) Pulmonary nodules COPD (chronic obstructive pulmonary disease) Bursitis of right shoulder Medial meniscus tear Osteoarthritis of right knee Surgical History History of carpal tunnel release History of cholecystectomy History of tonsillectomy History of colonoscopy Family History Father No problems noted. Mother No problems noted. Son No problems noted. Social History Household Members: [facility] Do you presently have visiting nurse or other home services: No Alcohol intake: current Alcohol intake frequency: does not drink Alcohol type: beer Comment: once Q 3-6 month glass of wine Patient Tobacco Use Status: Former Tobacco user Tobacco use type: Cigarette Years Smoked: 30 years Advance Directives Date on File: 06/24/23 service: No Current occupational status: retired 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 Cognitive needs: No Hearing needs: Yes Vision needs: Yes Office Procedures Cardiac Device Check Cardiac Device Check Details: Date of service- 11/23/2023; based on impedance data and physiological variables, there is no evidence of worsening congestive heart failure. [id number] Cardiac Device Interrogation, cardio physiologic monitor Procedure code (CPT) selection complete Assessment & Plan Assessment & Plan (1) Ischemic cardiomyopathy: Code(s): I25.5 - Ischemic cardiomyopathy Category: Medical Plan x Coding Level of Care Code Procedure Only Diagnoses Ischemic cardiomyopathy I25.5 CPT Codes Cardiac Device Check - Cardiac Device 15: [id number] Cardiac Device Interrogation, cardio physiologic monitor ([id number])
== END ==
PROVIDERS: PCP Internal Medicine; Visit Provider Internal Medicine
DX: I25.5 Ischemic cardiomyopathy (principal); Z95.810 Presence of automatic (implantable) cardiac defibrillator
CPT/HCPCS: 93297

== ENCOUNTER 2023-12-04 13:18 | Outpatient (REF) | payer MEDICARE, OTHER, SELFPAY ==
--- NOTE | ~2023-12-04 | CT_ITS ---
EXAMINATION: CT CHEST WITHOUT CONTRAST CLINICAL INFORMATION: Interstitial pulmonary disease. COMPARISON: CT chest November 10, 2021 TECHNIQUE: Multidetector volumetric CT imaging of the chest was done. Axial MIP volume rendering provided. Sagittal and coronal reformatted images were obtained. This CT examination was performed using dose optimization techniques as appropriate, variously including the following: *Automated exposure control *Adjustment of mA and/or kV according to patient size (this includes techniques or standardized protocols for targeted exams where dose is matched to indication/reason for exam; i.e. extremities or head) *Use of iterative reconstruction technique DLP: 167 mGy-cm FINDINGS: LUNGS: There is marked centrilobular emphysematous change of lungs. This predominates in the upper lobes. There is paraseptal emphysema as well as involving the upper lobes. There is mild bronchiectasis of the lower lobe bronchi. There is interstitial lung disease. Diffuse subpleural reticular opacities most pronounced at the lung bases. No acute airspace disease. No suspicious lung nodules. MEDIASTINUM: Heart size is normal. No pericardial effusion. Pacemaker leads in heart. CORONARY ARTERY CALCIFICATION: Coronary calcifications present. PLEURA: There is no pleural effusion. No pleural mass or thickening. AXILLA: No lymphadenopathy. UPPER ABDOMEN: Status post cholecystectomy. Partially visualized portions of liver, pancreas, spleen, kidneys are unremarkable. OSSEOUS STRUCTURES: Unremarkable. CT/CT chest wo IV con IMPRESSION: 1. Marked emphysematous change of lungs. 2. Interstitial lung disease. Fleischner guidelines were followed.
== END 2023-12-04 13:19 | disposition home or self-care (01) ==
LOC: HO.CT 13:18
PROVIDERS: PCP Internal Medicine; Visit Provider Hospitalist
DX: J84.9 Interstitial pulmonary disease, unspecified (principal)
CPT/HCPCS: 71250

== ENCOUNTER 2023-12-12 12:35 | Outpatient (AMB) | payer MEDICARE, OTHER, SELFPAY ==
--- NOTE | 2023-12-12 12:45 | MHC.PC.OV ---
Vital Signs 12/12/23 12:58 Height 5 ft 6 in Weight 164 lb BMI 26.5 BP 116/58 L Blood Pressure Location Lt brachial Position Sitting Pulse 72 Pulse Source Pulse Oximeter Pulse Oximetry (%) 94 Oxygen Delivery Method Room Air Intake Visit Reasons: CVA, CArdiomyopathy Allergies No Known Allergies [No Known Allergies*] Allergy (Verified 11/16/23 09:53) Medication List - Last Reconciled 12/12/23 by Leila Merida MD albuterol sulfate 90 mcg/actuation 2 puffs inhalation Q6H PRN alendronate 70 mg PO SA allopurinol 100 mg PO DAILY aspirin 81 mg PO DAILY atorvastatin 40 mg PO BEDTIME calcium carbonate (Calcium 500) 500 mg PO DAILY cholecalciferol (vitamin D3) (Vitamin D3) 25 mcg PO DAILY clopidogrel 75 mg PO DAILY fluticasone propionate 50 mcg/actuation 2 sprays intranasal DAILY 30 days xayerlwunjp-qitxnfgyg-adtoeocc 200-62.5-25 mcg (Trelegy Ellipta) 1 inh inhalation DAILY 30 days montelukast (Singulair) 10 mg PO BEDTIME 30 days sacubitril-valsartan 49-51 mg (Entresto) 1 tab PO BID tamsulosin 0.4 mg PO BEDTIME Tobacco use date assessed: 12/12/23 Fall risk assessment: No Falls in past year Last assessed Fall Risk: 12/12/23 Dental Screening Dental Screen Date: 08/01/23 HPI CVA, CArdiomyopathy HPI Details 83-year-old male with multiple medical problems from coronary artery disease with ischemic cardiomyopathy hypertension hypercholesterolemia impaired glucose tolerance history of CVA prostate cancer polymyalgia rheumatica with interstitial lung disease and COPD coming in for follow-up. Last seen in 08/04/2023. Patient has seen Pulmonary and on Trelegy, Singulair and was given doxycycline for 10 days patient was sent for allergy testing also.(seen 11/03/2023) has had a CT scan of the chest revealing marked emphysematous changes of the lungs with interstitial lung disease mild bronchiectasis diffuse subpleural reticular opacities on the lung bases. Patient has seen Cardiology also for monitoring of the ICD due to multiple episodes of syncope. Recent echocardiogram 40-45% ejection fraction patient also on amiodarone due to history of VT presently due to CVA on dual antiplatelet agents. (received 02/01/2023 positive regadenoson stress test showing nuclear imaging reviewed large severe in fact on the mid anterior, apical anterior, apical and apical inferior weaver with mild eric-infarct ischemia at the mid anterior wall after attenuation correction. This is most consistent with LAD territory infarct with mild reic-infarct ischemia overall low-normal left ventricular systolic function with akinesis of the apical inferior and apical weaver EF of 54%. Reviewing the notes in 10/03/2023 patient had a modified barium swallow for the dysphagia recommendations of regular select soft and easy to chew foods and liquids can be thin to avoid certain types liquid and food items. Patient does have a mild to moderate oropharyngeal dysphagia slowed and delayed oral phase. will see dermatology and was advised to hold aspirin and plavix 2 days. [facility] Medical History (Updated 11/07/23 @ 20:30 by Ken Allen MD) Allergies Dental abscess Dysphagia Elevated PSA Abrasion Bursitis of left shoulder Joint pain Effusion, left knee Prostate nodule Microscopic hematuria Bladder outlet obstruction Pes anserinus bursitis of right knee Effusion, right knee Ventricular tachycardia Ischemic cardiomyopathy Atherosclerotic cardiovascular disease Cardiomyopathy Pacemaker ILD (interstitial lung disease) Pulmonary nodules COPD (chronic obstructive pulmonary disease) Bursitis of right shoulder Medial meniscus tear Osteoarthritis of right knee Surgical History History of carpal tunnel release History of cholecystectomy History of tonsillectomy History of colonoscopy Family History Father No problems noted. Mother No problems noted. Son No problems noted. Social History Household Members: [facility] Do you presently have visiting nurse or other home services: No Alcohol intake: current Alcohol intake frequency: does not drink Alcohol type: beer Comment: once Q 3-6 month glass of wine Patient Tobacco Use Status: Former Tobacco user Tobacco use type: Cigarette Years Smoked: 30 years Advance Directives Date on File: 06/24/23 service: No Current occupational status: retired 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 Cognitive needs: No Hearing needs: Yes Vision needs: Yes Questionnaire Thrive Questionnaire Date Thrive assessed: 08/01/23 AUDIT C Alcohol Use Questionnaire (AUDIT-C) 1. How often do you have a drink containing alcohol?: Never Total Score: 0 CORINNE-7 AMB Questionnaire CORINNE-7 Date CORINNE - 7 assessed: 08/01/23 Source: Developed by DrsLazara Rod, Paulette Rose, Aurelio Lopez and colleagues, with an educational dell from [employer]. Physical exam (Primary Care) Vital Signs: Last Vital Signs Pulse 72 12/12/23 12:58 BP 116/58 L 12/12/23 12:58 Pulse Ox 94 12/12/23 12:58 Oxygen Delivery Method Room Air 12/12/23 12:58 BMI result Body Mass Index 26.5 Tobacco/Smoking Status: Tobacco use Status Tobacco use date assessed 12/12/23 12/12/23 13:02 Patient Tobacco Use Status Former Tobacco user 12/12/23 12:46 Tobacco use type Cigarette 12/12/23 12:46 Thrive Assessment: Date of Thrive Assessment Date Thrive assessed 08/01/23 12/12/23 12:46 Const General: alert; No acute distress Eyes Conjunctivae: conjunctivae normal Resp Auscultation: clear to auscultation bilaterally Cardio Rate: regular rate Rhythm: regular rhythm GI Inspection: Yes normal to inspection Extrem General: Yes normal to inspection and No edema Assessment and Plan Assessment & Plan (1) Prostate cancer: Comment: 04/05 High-grade, moderate volume, localized disease Initial therapy external beam radiation with [facility] August 2021 Code(s): C61 - Malignant neoplasm of prostate Plan: Continue to follow-up with urology (2) COPD (chronic obstructive pulmonary disease): Code(s): J44.9 - Chronic obstructive pulmonary disease, unspecified Qualifiers: COPD type: chronic bronchitis Chronic bronchitis type: simple Qualified Code(s): J41.0 - Simple chronic bronchitis Plan: Placed on Trelegy and as needed albuterol (3) ILD (interstitial lung disease): Code(s): J84.9 - Interstitial pulmonary disease, unspecified Plan: Patient continues to follow-up with Pulmonary (4) CVA (cerebral vascular accident): Comment: Middle cerebral artery ischemic Code(s): I63.9 - Cerebral infarction, unspecified Plan: Dual antiplatelet medication aspirin and clopidogrel (5) Atherosclerotic cardiovascular disease: Code(s): I25.10 - Atherosclerotic heart disease of [place] coronary artery without angina pectoris Plan: Control the cholesterol, weight, blood pressure continue with aspirin 81 mg once a day (6) Ischemic cardiomyopathy: Code(s): I25.5 - Ischemic cardiomyopathy Plan: ICD regular monitoring by Cardiology (7) Impaired glucose tolerance: Code(s): R73.02 - Impaired glucose tolerance (oral) Plan: Decrease the amount of carbohydrate intake, pasta, bread, rice and potatoes are all sugar and that is aside from all the sweet stuff, remember that fruits are good but they are Sweet also. (8) Hypertension: Code(s): I10 - Essential (primary) hypertension Plan: Continue with blood pressure medication. Decrease salt intake and exercise takes Entresto (9) Hypercholesterolemia: Code(s): E78.00 - Pure hypercholesterolemia, unspecified Plan: Avoid fried foods, chicken skin, eggs, butter margarine, pastries and meat. Be it pork or beef they have a lot of cholesterol LDL goal of less than 70 and preferably below 60. On atorvastatin 40 mg once a day Coding Level of Care Code Est Pt Level 4 (82504) Complex EM visit Add On G2211 Diagnoses Prostate cancer C61 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 COPD type: chronic bronchitis Chronic bronchitis type: simple ILD (interstitial lung disease) J84.9 CVA (cerebral vascular accident) I63.9 Atherosclerotic cardiovascular disease I25.10 Ischemic cardiomyopathy I25.5 Impaired glucose tolerance R73.02 Hypertension I10 Hypercholesterolemia E78.00
[2023-12-12 12:58] VITALS: BP 116/58; PULSE 72; O2SAT 94; BMI 26.5
== END 2023-12-12 13:21 | disposition home or self-care (01) ==
PROVIDERS: PCP Internal Medicine; Visit Provider Internal Medicine
DX: I25.5 Ischemic cardiomyopathy (principal); Z86.73 Personal history of transient ischemic attack (TIA), and cerebral infarction without residual deficits; J41.0 Simple chronic bronchitis; J84.9 Interstitial pulmonary disease, unspecified; I25.10 Atherosclerotic heart disease of native coronary artery without angina pectoris; R73.02 Impaired glucose tolerance (oral); I10 Essential (primary) hypertension; E78.00 Pure hypercholesterolemia, unspecified
CPT/HCPCS: 99214; G2211

== ENCOUNTER → 2023-12-24 23:59 | Outpatient (BNV) | payer MEDICARE, OTHER, SELFPAY ==
--- NOTE | 2023-12-30 18:55 | MHC.OFFVIS ---
Intake Visit Reasons: Remote ICD check-Biotronik Allergies No Known Allergies [No Known Allergies*] Allergy (Verified 11/16/23 09:53) [facility] Medical History (Updated 11/07/23 @ 20:30 by Ken Allen MD) Allergies Dental abscess Dysphagia Elevated PSA Abrasion Bursitis of left shoulder Joint pain Effusion, left knee Prostate nodule Microscopic hematuria Bladder outlet obstruction Pes anserinus bursitis of right knee Effusion, right knee Ventricular tachycardia Ischemic cardiomyopathy Atherosclerotic cardiovascular disease Cardiomyopathy Pacemaker ILD (interstitial lung disease) Pulmonary nodules COPD (chronic obstructive pulmonary disease) Bursitis of right shoulder Medial meniscus tear Osteoarthritis of right knee Surgical History History of carpal tunnel release History of cholecystectomy History of tonsillectomy History of colonoscopy Family History Father No problems noted. Mother No problems noted. Son No problems noted. Social History Household Members: [facility] Do you presently have visiting nurse or other home services: No Alcohol intake: current Alcohol intake frequency: does not drink Alcohol type: beer Comment: once Q 3-6 month glass of wine Patient Tobacco Use Status: Former Tobacco user Tobacco use type: Cigarette Years Smoked: 30 years Advance Directives Date on File: 06/24/23 service: No Current occupational status: retired 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 Cognitive needs: No Hearing needs: Yes Vision needs: Yes Office Procedures Cardiac Device Check Cardiac Device Check Details: Date of service 12/24/2023; Battery voltage 3.04V; AP 55%; CAREER SERVICES OFFICER 1%; normal lead parameters; no treated VT/VF; normal ICD function. [id number] Cardiac Interrogation, implant defibrillator w/interim Procedure code (CPT) selection complete Assessment & Plan Assessment & Plan (1) Ischemic cardiomyopathy: Code(s): I25.5 - Ischemic cardiomyopathy Category: Medical Plan x Coding Level of Care Code Procedure Only Diagnoses Ischemic cardiomyopathy I25.5 CPT Codes Cardiac Device Check - Cardiac Device 13: [id number] Cardiac Interrogation, implant defibrillator w/interim ([id number])
== END ==
PROVIDERS: PCP Internal Medicine; Visit Provider Internal Medicine
DX: I25.5 Ischemic cardiomyopathy (principal); Z95.810 Presence of automatic (implantable) cardiac defibrillator
CPT/HCPCS: 93295

== ENCOUNTER → 2023-12-27 23:59 | Outpatient (BNV) | payer MEDICARE, OTHER, SELFPAY ==
--- NOTE | 2023-12-31 19:19 | A.OFFVIS_ITS ---
Intake Visit Reasons: REmote HF monitoring- Biotronik Allergies No Known Allergies [No Known Allergies*] Allergy (Verified 11/16/23 09:53) [facility] Medical History (Updated 11/07/23 @ 20:30 by Ken Allen MD) Allergies Dental abscess Dysphagia Elevated PSA Abrasion Bursitis of left shoulder Joint pain Effusion, left knee Prostate nodule Microscopic hematuria Bladder outlet obstruction Pes anserinus bursitis of right knee Effusion, right knee Ventricular tachycardia Ischemic cardiomyopathy Atherosclerotic cardiovascular disease Cardiomyopathy Pacemaker ILD (interstitial lung disease) Pulmonary nodules COPD (chronic obstructive pulmonary disease) Bursitis of right shoulder Medial meniscus tear Osteoarthritis of right knee Surgical History History of carpal tunnel release History of cholecystectomy History of tonsillectomy History of colonoscopy Family History Father No problems noted. Mother No problems noted. Son No problems noted. Social History [facility]hold Members: [facility] Do you presently have visiting nurse or other home services: No Alcohol intake: current Alcohol intake frequency: does not drink Alcohol type: beer Comment: once Q 3-6 month glass of wine Patient Tobacco Use Status: Former Tobacco user Tobacco use type: Cigarette Years Smoked: 30 years Advance Directives Date on File: 06/24/23 service: No Current occupational status: retired 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 Cognitive needs: No Hearing needs: Yes Vision needs: Yes Office Procedures Cardiac Device Check Cardiac Device Check Details: Date of service- 12/27/2023; based on impedance data and physiological variables, there is no evidence of worsening congestive heart failure. [id number] Cardiac Device Interrogation, cardio physiologic monitor Procedure code (CPT) selection complete Assessment & Plan Assessment & Plan (1) Ischemic cardiomyopathy: Code(s): I25.5 - Ischemic cardiomyopathy Category: Medical Plan x Coding Level of Care Code Procedure Only Diagnoses Ischemic cardiomyopathy I25.5 CPT Codes Cardiac Device Check - Cardiac Device 15: [id number] Cardiac Device Interrogation, cardio physiologic monitor ([id number])
== END ==
PROVIDERS: PCP Internal Medicine; Visit Provider Internal Medicine
DX: I25.5 Ischemic cardiomyopathy (principal); Z95.810 Presence of automatic (implantable) cardiac defibrillator
CPT/HCPCS: 93297

== ENCOUNTER 2024-03-03 11:44 | Outpatient (AMB) | payer MEDICARE, OTHER, SELFPAY ==
[2024-03-03 11:46] VITALS: BP 118/56; PULSE 84; O2SAT 94; BMI 26.3
--- NOTE | 2024-03-03 11:46 | A.OFFPC_ITS ---
Vital Signs 03/03/24 11:46 Height 5 ft 6 in Weight 163 lb BMI 26.3 BP 118/56 L Blood Pressure Location Lt brachial Position Sitting Pulse 84 Pulse Source Pulse Oximeter Pulse Oximetry (%) 94 Oxygen Delivery Method Room Air Intake Visit Reasons: Fatigue, upset stomach Intake Note: pt c/o upset stomach and fatigue since this morning, no nausea or vomiting. Pt c/o cough with no relief. Ceramic Worker Required: No Allergies No Known Allergies [No Known Allergies*] Allergy (Verified 03/03/24 11:46) Medication List - Last Reconciled 03/03/24 by Kimi Santos PA-C albuterol sulfate 90 mcg/actuation 2 puffs inhalation Q6H PRN alendronate 70 mg PO QWEEK allopurinol 100 mg PO DAILY aspirin 81 mg PO DAILY atorvastatin 40 mg PO BEDTIME calcium carbonate (Calcium 500) 500 mg PO DAILY cholecalciferol (vitamin D3) 25 mcg PO DAILY clopidogrel 75 mg PO DAILY fluticasone propionate 50 mcg/actuation 2 sprays intranasal DAILY 30 days pwbotxpxulp-xnhkdbsss-nxwiheij 200-62.5-25 mcg (Trelegy Ellipta) 1 inh inhalation DAILY 30 days montelukast (Singulair) 10 mg PO BEDTIME 30 days sacubitril-valsartan 49-51 mg (Entresto) 1 tab PO BID 90 days tamsulosin 0.4 mg PO BEDTIME 90 days Tobacco use date assessed: 12/12/23 Fall risk assessment: No Falls in past year Last assessed Fall Risk: 03/03/24 Dental Screening Dental Screen Date: 08/01/23 HPI Fatigue, upset stomach HPI Details 83-year-old male with past medical histo ry COPD, polymyalgia rheumatica, history of prostate cancer, history of CVA, hypertension, hypercholesterolemia, impaired glucose tolerance last seen by Dr. Merida november 2023 coming in for acute problem. In review of the notes, patient has been following with cardiology for device interrogations for implantable ICD. Patient states the last few days he has been very fatigued and been sleeping poorly. He mentions he has to wake up several times a night to use the bathroom or because of hot flashes. The hot flashes have been evaluated by Urology and thought to be related to aromatase inhibitor therapy. He does mentioned the fatigue is not prevent him from leaving the house or getting out of bed to do his activities of daily living. Denies any other symptoms such as abdominal pain, chest pain, shortness of breath, fevers, or body aches. He also mentions he has a dry cough which has been persistent for several months and being evaluated by pulmonology. [facility] Medical History (Updated 03/03/24 @ 12:33 by Kimi Santos PA-C) Allergies Dental abscess Dysphagia Elevated PSA Abrasion Bursitis of left shoulder Joint pain Effusion, left knee Prostate nodule Microscopic hematuria Bladder outlet obstruction Pes anserinus bursitis of right knee Effusion, right knee Ventricular tachycardia Ischemic cardiomyopathy Atherosclerotic cardiovascular disease Cardiomyopathy Pacemaker ILD (interstitial lung disease) Pulmonary nodules COPD (chronic obstructive pulmonary disease) Bursitis of right shoulder Medial meniscus tear Osteoarthritis of right knee Surgical History History of carpal tunnel release History of cholecystectomy History of tonsillectomy History of colonoscopy Family History Father No problems noted. Mother No problems noted. Son No problems noted. Social History Household Members: Spouse Housing: Condominium Do you presently have visiting nurse or other home services: No Alcohol intake: current Alcohol intake frequency: does not drink Alcohol type: beer Comment: once Q 3-6 month glass of wine Patient Tobacco Use Status: Former Tobacco user Tobacco use type: Cigarette Years Smoked: 30 years Advance Directives Date on File: 06/24/23 service: No Current occupational status: retired 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 Cognitive needs: No Hearing needs: Yes Vision needs: Yes Questionnaire Thrive Questionnaire Date Thrive assessed: 08/01/23 AUDIT C Alcohol Use Questionnaire (AUDIT-C) 1. How often do you have a drink containing alcohol?: Never 3. How often do you have six or more drinks on one occasion?: Never Total Score: 0 CORINNE-7 AMB Questionnaire CORINNE-7 Date CORINNE - 7 assessed: 08/01/23 Source: Developed by Drs. Deacon Rod, Paulette Rose, Aurelio Lopez and colleagues, with an educational dell from [employer]. Review of Systems Const Denies body aches, Denies chills, Reports fatigue, Denies fever(s), Denies headache(s) and Denies poor appetite Eyes Reports no additional complaints ENT Denies dysphagia, Denies dizziness, Denies headache(s) and Denies odynophagia Card Denies chest pain, Denies syncope, Denies edema, Denies irregular heart rhythm, Denies lightheadedness and Denies dyspnea Resp Denies cough and Denies dyspnea GI Denies abdominal pain, Denies constipation, Denies dysphagia, Denies diarrhea, Denies nausea, Denies odynophagia and Denies vomiting Reports no additional complaints Musc Reports no additional complaints and Denies abnormal gait Skin/Breast Reports system reviewed and no additional complaints, except as documented Neuro Denies abnormal gait, Denies dizziness, Denies syncope and Denies headache(s) Psych Reports no additional complaints Endo Reports fatigue Physical exam (Primary Care) Vital Signs: Last Vital Signs Pulse 84 03/03/24 11:46 BP 118/56 L 03/03/24 11:46 Pulse Ox 94 03/03/24 11:46 Oxygen Delivery Method Room Air 03/03/24 11:46 BMI result Body Mass Index 26.3 Tobacco/Smoking Status: Tobacco use Status Tobacco use date assessed 12/12/23 03/03/24 11:52 Patient Tobacco Use Status Former Tobacco user 03/03/24 11:52 Tobacco use type Cigarette 03/03/24 11:52 Thrive Assessment: Date of Thrive Assessment Date Thrive assessed 08/01/23 03/03/24 11:52 Const General: cooperative, healthy appearing, comfortable and no acute distress Orientation/consciousness: patient oriented x3 [facility] Head: Yes normocephalic Ears: hearing grossly normal bilaterally General nose exam: Normal external nose present Eyes General: appearance normal, both eyes and all related structures Conjunctivae: conjunctivae normal Neck Neck: Yes full ROM and Yes no lymphadenopathy Resp Effort & Inspection: normal respiratory effort Auscultation: clear to auscultation bilaterally, no crackles, no rales, no rhonchi and no wheezes Cardio Rate: regular rate Rhythm: regular rhythm Skin General skin exam: no rashes or lesions noted Neuro General: patient oriented x3 Gait exam (Neuro): Normal gait present Extrem General: Yes normal to inspection, Yes full ROM and No edema Psych Affect: normal affect Attitude: cooperative Insight: Good insight present (Psych) Judgement: Good judgement present (Psych) Assessment and Plan Assessment & Plan (1) Fatigue: Code(s): R53.83 - Other fatigue Plan: Patient has vague symptoms of fatigue without any other symptoms. He does mentioned he has been sleeping poorly the last several days. Discussed the importance sleep hygiene and regular sleep routine as he mentions he naps often during the day. We will order for basic blood work to evaluate for underlying cause. If symptoms worsen or do not improve with conservative measures please reach out for re-evaluation. Patient declined COVID testing. Plan This note was constructed using voice recognition software. While every effort has been made to ensure accuracy and senior android software engineer, still areas may have been included sometimes these areas may affect the content or meeting of the given symptoms. Total time spent caring for the patient today was 25 minutes. This includes time spent before the visit reviewing the chart, time spent during the visit, and time spent after the visit and documentation. Orders: Orders Vitamin B12 and Folate Today Z00.00 - Encounter for general adult medical examination without abnormal findings Free T4 (Free Thyroxine) Today Z00.00 - Encounter for general adult medical examination without abnormal findings TSH reflex Free T4 Today Z00.00 - Encounter for general adult medical examination without abnormal findings Complete Blood Count Auto Diff Today Z00.00 - Encounter for general adult medical examination without abnormal findings Comprehensive Met. Panel Today Z00.00 - Encounter for general adult medical examination without abnormal findings Vitamin D 25-OH (D2 and D3) Today Z00.00 - Encounter for general adult medical examination without abnormal findings Coding Level of Care Code Est Pt Level 4 (42951) Diagnoses Fatigue R53.83
== END 2024-03-03 12:41 | disposition home or self-care (01) ==
PROVIDERS: PCP Internal Medicine
DX: R53.83 Other fatigue (principal)
CPT/HCPCS: 99214

== ENCOUNTER 2024-03-04 08:34 | Outpatient (REF) | payer MEDICARE, OTHER, SELFPAY ==
[2024-03-04 08:56] LABS: MANUAL DIFF FLAG NO
[2024-03-04 10:13] LABS: Basophils Percent Auto 0.2 % (0-2); Eosinophils Absolute Auto 0.2 X10*3/uL (0.0-0.4); Eosinophils Percent Auto 1.7 % (0-4); Hematocrit 37.3 % (42.0-52.0); Hemoglobin 13.4 g/dl (14.0-18.0); Imm Gran Abs Auto 0.04 X10*3/uL (0.00-0.03); Imm Gran Pct Auto 0.4 % (0.0-0.4); Lymphocytes Absolute Auto 1.2 X10*3/uL (1.2-4.9); Lymphocytes Percent Auto 13.1 % (20-40); Mean Corpuscular HGB Conc 35.9 g/dl (31.0-36.0); Mean Corpuscular Hemoglobin 34.4 pg (27.0-33.0); Mean Corpuscular Volume 95.9 fL (80.0-98.0); Mean Platelet Volume 9.1 fL (9.4-12.4); Monocytes Percent Auto 11.1 % (2-11); Neutrophils Absolute Auto 6.9 x10*3/uL (2.0-8.3); Neutrophils Percent Auto 73.5 % (45-73); Platelet Count 206 X10*3/uL (160-400); Red Blood Count 3.89 X10*6/uL (4.60-5.80); Red Cell Distribution Width 13.2 % (11.0-16.0); White Blood Count 9.3 X10*3/uL (4.8-10.8)
[2024-03-04 10:55] LABS: Erythrocyte Sedimentation Rate 34 MM/HR (0-15)
[2024-03-04 11:24] LABS: Alanine Aminotransferase 16 U/L (0-40); Alkaline Phosphatase 65 U/L (39-117); Anion Gap 13 (12-20); Aspartate Amino Transferase 16 U/L (5-37); Bilirubin Total 1.3 mg/dL (0.0-1.0); Blood Urea Nitrogen 12 mg/dL (9-16); Calcium 9.2 mg/dL (8.4-10.2); Carbon Dioxide 26 mmol/L (22-29); Chloride 96 mmol/L (96-108); Estimated Glomerular Filt Rate > 60; Glucose Random 130 mg/dL (60-115); Sodium 131 mmol/L (135-145); TSH reflex Free T4 1.07 uIU/mL (0.32-4.0); Total Protein 7.3 g/dL (6.5-8.0)
[2024-03-04 11:25] LABS: Free T4 (Free Thyroxine) 1.15 ng/dL (0.71-1.85)
[2024-03-04 11:33] LABS: Prostate Specific Antigen < 0.10 ng/mL (<0.05-4.0)
[2024-03-04 12:02] LABS: Folate 5.3 ng/mL (> or = 4.0); Vitamin B12 281 pg/mL (200-900)
[2024-03-06 22:58] LABS: Immunoglobulin E 6 kU/L (<OR=114)
[2024-03-09 13:58] LABS: Testosterone, Total 9 ng/dL (250-1100)
[2024-03-09 14:48] LABS: Vitamin D 25-OH, D2 <4 ng/mL; Vitamin D 25-OH, D3 27 ng/mL; Vitamin D 25-OH, Total 27 ng/mL (30-100)
== END 2024-03-04 08:35 | disposition home or self-care (01) ==
LOC: HO.LAB 08:34
PROVIDERS: Internal Medicine; Absent Provider Hospitalist; PCP Internal Medicine; Visit Provider Urology
DX: Z00.00 Encounter for general adult medical examination without abnormal findings (principal); Z12.5 Encounter for screening for malignant neoplasm of prostate; C61 Malignant neoplasm of prostate; T78.40XA Allergy, unspecified, initial encounter; R91.8 Other nonspecific abnormal finding of lung field; J41.0 Simple chronic bronchitis; E03.9 Hypothyroidism, unspecified
CPT/HCPCS: 36415; 80053; 82306; 82607; 82746; 82785; 84153; 84403; 84439; 84443; 85025; 85652

== ENCOUNTER → 2024-03-07 23:59 | Outpatient (BNV) | payer MEDICARE, OTHER, SELFPAY ==
--- NOTE | 2024-03-11 09:14 | A.OFFVIS_ITS ---
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 Allergies No Known Allergies [No Known Allergies*] Allergy (Verified 03/03/24 11:46) [facility] Medical History (Updated 03/03/24 @ 12:33 by Kimi Santos PA-C) Allergies Dental abscess Dysphagia Elevated PSA Abrasion Bursitis of left shoulder Joint pain Effusion, left knee Prostate nodule Microscopic hematuria Bladder outlet obstruction Pes anserinus bursitis of right knee Effusion, right knee Ventricular tachycardia Ischemic cardiomyopathy Atherosclerotic cardiovascular disease Cardiomyopathy Pacemaker ILD (interstitial lung disease) Pulmonary nodules COPD (chronic obstructive pulmonary disease) Bursitis of right shoulder Medial meniscus tear Osteoarthritis of right knee Surgical History History of carpal tunnel release History of cholecystectomy History of tonsillectomy History of colonoscopy Family History Father No problems noted. Mother No problems noted. Son No problems noted. Social History House[facility] Members: [facility] Do you presently have visiting nurse or other home services: No Alcohol intake: current Alcohol intake frequency: does not drink Alcohol type: beer Comment: once Q 3-6 month glass of wine Patient Tobacco Use Status: Former Tobacco user Tobacco use type: Cigarette Years Smoked: 30 years Advance Directives Date on File: 06/24/23 service: No Current occupational status: retired 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 Cognitive needs: No Hearing needs: Yes Vision needs: Yes Office Procedures Cardiac Device Check Cardiac Device Check Details: Date of service- 03/07/2024; based on impedance data and physiological variables, there is no evidence of worsening congestive heart failure. [id number] Cardiac Device Interrogation, cardio physiologic monitor Procedure code (CPT) selection complete Assessment & Plan Assessment & Plan (1) Ischemic cardiomyopathy: Code(s): I25.5 - Ischemic cardiomyopathy Category: Medical Plan x Coding Level of Care Code Procedure Only Diagnoses Ischemic cardiomyopathy I25.5 CPT Codes Cardiac Device Check - Cardiac Device 15: [id number] Cardiac Device Interrogation, cardio physiologic monitor ([id number])
== END ==
PROVIDERS: PCP Internal Medicine; Visit Provider Internal Medicine
DX: I25.5 Ischemic cardiomyopathy (principal); Z95.810 Presence of automatic (implantable) cardiac defibrillator
CPT/HCPCS: 93297

== ENCOUNTER 2024-03-10 13:55 | Outpatient (REF) | payer MEDICARE, OTHER, SELFPAY ==
--- NOTE | ~2024-03-10 | XR_ITS ---
EXAMINATION: XR CHEST CLINICAL INFORMATION: Subacute cough COMPARISON: Chest radiograph 11/12/2023 TECHNIQUE: 2 views of the chest were obtained. FINDINGS: Left chest wall pacemaker with leads overlying the right atrium and right ventricle, similar to prior exam. The lungs are mildly hypoexpanded. Diffuse interstitial prominence similar to prior exam. No focal consolidation. No pleural effusions or pneumothorax. The cardiac mediastinal silhouette is unchanged. No acute osseous abnormality. Degenerative changes of the thoracic spine. XR/XR chest 2V IMPRESSION: Diffuse interstitial prominence similar to prior exam. No focal consolidation. Underlying emphysema better evaluated on prior CT. Electronically signed by: Neil Thurman MD 03/10/2024 05:05 PM EDT
== END 2024-03-10 13:56 | disposition home or self-care (01) ==
LOC: HO.XRAY 13:55
PROVIDERS: PCP Internal Medicine; Visit Provider Internal Medicine
DX: R05.2 Subacute cough (principal)
CPT/HCPCS: 71046

== ENCOUNTER → 2024-03-24 23:59 | Outpatient (BNV) | payer MEDICARE, OTHER, SELFPAY ==
--- NOTE | 2024-03-26 18:55 | MHC.OFFVIS ---
Intake Visit Reasons: Remote ICD check-Biotronik Allergies No Known Allergies [No Known Allergies*] Allergy (Verified 03/03/24 11:46) [facility] Medical History (Updated 03/03/24 @ 12:33 by Kimi Santos PA-C) Allergies Dental abscess Dysphagia Elevated PSA Abrasion Bursitis of left shoulder Joint pain Effusion, left knee Prostate nodule Microscopic hematuria Bladder outlet obstruction Pes anserinus bursitis of right knee Effusion, right knee Ventricular tachycardia Ischemic cardiomyopathy Atherosclerotic cardiovascular disease Cardiomyopathy Pacemaker ILD (interstitial lung disease) Pulmonary nodules COPD (chronic obstructive pulmonary disease) Bursitis of right shoulder Medial meniscus tear Osteoarthritis of right knee Surgical History History of carpal tunnel release History of cholecystectomy History of tonsillectomy History of colonoscopy Family History Father No problems noted. Mother No problems noted. Son No problems noted. Social History Household Members: [facility] Do you presently have visiting nurse or other home services: No Alcohol intake: current Alcohol intake frequency: does not drink Alcohol type: beer Comment: once Q 3-6 month glass of wine Patient Tobacco Use Status: Former Tobacco user Tobacco use type: Cigarette Years Smoked: 30 years Advance Directives Date on File: 06/24/23 service: No Current occupational status: retired 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 Cognitive needs: No Hearing needs: Yes Vision needs: Yes Office Procedures Cardiac Device Check Cardiac Device Check Details: Date of service 03/24/2024; Battery status OK; normal lead parameters; no treated VT/VF; ; normal ICD function. [id number] Cardiac Interrogation, implant defibrillator w/interim Procedure code (CPT) selection complete Assessment & Plan Assessment & Plan (1) Ischemic cardiomyopathy: Code(s): I25.5 - Ischemic cardiomyopathy Category: Medical Plan x Coding Level of Care Code Procedure Only Diagnoses Ischemic cardiomyopathy I25.5 CPT Codes Cardiac Device Check - Cardiac Device 13: [id number] Cardiac Interrogation, implant defibrillator w/interim ([id number])
== END ==
PROVIDERS: PCP Internal Medicine; Visit Provider Internal Medicine
DX: I25.5 Ischemic cardiomyopathy (principal); Z95.810 Presence of automatic (implantable) cardiac defibrillator
CPT/HCPCS: 93295

== ENCOUNTER 2024-04-01 10:26 | Outpatient (AMB) | payer MEDICARE, OTHER, SELFPAY ==
--- NOTE | 2024-04-01 10:41 | MHC.OFFVIS ---
Intake Visit Reasons: 6M Follow up-PSA/Testosterone(set) Intake Note: Patient is Present for Follow Up PSA/Testosterone Urology Medication: Tamsulosin Antibiotic Allergies: None Blood Thinners: Clopidogrel, Aspirin Recent PSA: 03/04/24 - <0.10 Testosterone- 9 Recent Hemoglobin A1C: 5.7 Guest Service Supervisor Required: No Accompanied by: Self / Same As Patient Allergies No Known Allergies [No Known Allergies*] Allergy (Verified 04/01/24 10:46) HPI Comments Details: Deacon is a very pleasant male. He is a patient of Dr Pierre. He is seen for the following urologic conditions. - prostate cancer - osteopenia following hormone therapy 2 year follow-up from treatment completion PSA remains undetectable 11/05 P <0.1 T 3, 03/07 P <0.1, 09/08 < 0.1, 03/08 <0.1 T 9 Continue to review PSA every 6 months at 10 years Prostate cancer high grade, high volume diagnosed February 2021 PSA 18 PSA 10/04 <0.1, 01/04 <0.1 5, 04/06 <0.1 5, 08/07 <0.1 T3 Prostate cancer diagnosed by Dr. 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 4+4=8 (A,C,D,F,G,H,J); 4+5=9 (B, I, K, L) Tumor quantitation: Number cores positive:??11 Total number of cores:??12 Periprostatic fat inv.: Not identified. Seminal vesicle inv.: Not identified. Perineural inv.: Present. LVI: Not identified GnRH initial March 242020 after bicalutamide run in with finasteride - 08/07 completed finasteride Staging 04/05 CT scan no evidence of tru disease 04/05 bone scan no evidence of metastatic disease 10/03 DEXA scan osteopenia from long-term steroid use, 04/07 Osteopenia based on the lowest T-score value of -2.4 in the femoral neck Osteopenia Alendronate weekly [facility] Medical History Allergies Dental abscess Dysphagia Elevated PSA Abrasion Bursitis of left shoulder Joint pain Effusion, left knee Prostate nodule Microscopic hematuria Bladder outlet obstruction Pes anserinus bursitis of right knee Effusion, right knee Ventricular tachycardia Ischemic cardiomyopathy Atherosclerotic cardiovascular disease Cardiomyopathy Pacemaker ILD (interstitial lung disease) Pulmonary nodules COPD (chronic obstructive pulmonary disease) Bursitis of right shoulder Medial meniscus tear Osteoarthritis of right knee Surgical History History of carpal tunnel release History of cholecystectomy History of tonsillectomy History of colonoscopy Family History Father No problems noted. Mother No problems noted. Son No problems noted. Social History Household Members: [facility] Do you presently have visiting nurse or other home services: No Alcohol intake: current Alcohol intake frequency: does not drink Alcohol type: beer Comment: once Q 3-6 month glass of wine Patient Tobacco Use Status: Former Tobacco user Tobacco use type: Cigarette Years Smoked: 30 years Advance Directives Date on File: 06/24/23 service: No Current occupational status: retired 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 Cognitive needs: No Hearing needs: Yes Vision needs: Yes Review of Systems Const Denies chills and Denies fever(s) Card Reports no additional complaints and Denies syncope Resp Denies cough GI Denies abdominal pain and Denies heartburn Reports as per HPI and Denies change in libido Neuro Denies syncope Psych Denies change in libido Endo Denies change in libido Physical Exam Const General: cooperative, healthy appearing, comfortable and no acute distress Orientation/consciousness: patient oriented x3 HEENT Face and sinus: Yes normal facial exam Mouth: moist mucous membranes Neck Neck: Yes normal visual inspection, Yes full ROM and Yes trachea midline Chest Chest palpation & inspection: normal inspection of the chest Resp Effort & Inspection: normal respiratory effort, able to speak in complete sentences and no respiratory distress GI Inspection: Yes normal to inspection Back/Spine/Pelvis Cervical Spine: normal cervical lordosis Thoracic/Lumbar Spine: thoracic and lumbar spine normal to inspection Skin General skin exam: no rashes or lesions noted Neuro General: patient oriented x3, gait normal, tone normal and moves all extremities Extrem General: Yes normal to inspection and Yes capillary refill normal Assessment & Plan Assessment & Plan (1) Prostate cancer: Comment: 04/05 High-grade, moderate volume, localized disease Initial therapy external beam radiation with GnRH [facility] August 2021 Code(s): C61 - Malignant neoplasm of prostate Category: Medical Plan Six-month follow-up PSA tele Orders: Orders Prostate Specific Antigen 6 Months C61 - Malignant neoplasm of prostate Patient Instructions: Imaging studies, laboratory and physical exam results were discussed and reviewed in detail. No major barriers to patient understanding were identified. An opportunity to ask questions regarding the treatment plan was provided. All questions were answered. The patient expressed understanding and agreement with the above treatment plan. The patient is aware they should contact our office by phone for worsening of their current condition or the appearance of new urologic symptoms. Compliance is encouraged with any medications and followup testing that is ordered. It is a privilege to participate in the urologic care of your patient. If you have any questions or concerns regarding treatment for the above conditions, or other urologic issues, please do not hesitate to contact me. The office telephone contact is [phone]. This note is constructed using voice recognition software. While every effort has been made to ensure accuracy intermediate project manager errors may have been included. Yours sincerely, Dr Husam Guerra MD, [facility] - Urology Providers of Expert, Compassionate Care for the Genitourinary System Coding Level of Care Code Est Pt Level 3 (86599) Diagnoses Prostate cancer C61
== END 2024-04-01 11:10 | disposition home or self-care (01) ==
PROVIDERS: PCP Internal Medicine; Visit Provider Urology
DX: C61 Malignant neoplasm of prostate (principal)
CPT/HCPCS: 99213

== ENCOUNTER → 2024-04-01 10:26 | Outpatient (BNVA) | payer MEDICARE, OTHER, SELFPAY | PROVIDERS: PCP Internal Medicine; Visit Provider Urology | DX: C61 Malignant neoplasm of prostate (principal) | CPT/HCPCS: 99212 ==

== ENCOUNTER → 2024-04-07 23:59 | Outpatient (BNV) | payer MEDICARE, OTHER, SELFPAY ==
--- NOTE | 2024-04-13 13:51 | MHC.OFFVIS ---
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 Allergies No Known Allergies [No Known Allergies*] Allergy (Verified 04/01/24 10:46) [facility] Medical History Allergies Dental abscess Dysphagia Elevated PSA Abrasion Bursitis of left shoulder Joint pain Effusion, left knee Prostate nodule Microscopic hematuria Bladder outlet obstruction Pes anserinus bursitis of right knee Effusion, right knee Ventricular tachycardia Ischemic cardiomyopathy Atherosclerotic cardiovascular disease Cardiomyopathy Pacemaker ILD (interstitial lung disease) Pulmonary nodules COPD (chronic obstructive pulmonary disease) Bursitis of right shoulder Medial meniscus tear Osteoarthritis of right knee Surgical History History of carpal tunnel release History of cholecystectomy History of tonsillectomy History of colonoscopy Family History Father No problems noted. Mother No problems noted. Son No problems noted. Social History Household Members: Spouse [facility]: [facility] Do you presently have visiting nurse or other home services: No Alcohol intake: current Alcohol intake frequency: does not drink Alcohol type: beer Comment: once Q 3-6 month glass of wine Patient Tobacco Use Status: Former Tobacco user Tobacco use type: Cigarette Years Smoked: 30 years Advance Directives Date on File: 06/24/23 service: No Current occupational status: retired 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 Cognitive needs: No Hearing needs: Yes Vision needs: Yes Office Procedures Cardiac Device Check Cardiac Device Check Details: Date of service- 04/07/2024; based on impedance data and physiological variables, there is no evidence of worsening congestive heart failure. [id number] Cardiac Device Interrogation, cardio physiologic monitor Procedure code (CPT) selection complete Assessment & Plan Assessment & Plan (1) ICD (implantable cardioverter-defibrillator) in place: Code(s): Z95.810 - Presence of automatic (implantable) cardiac defibrillator Category: Medical (2) Ischemic cardiomyopathy: Code(s): I25.5 - Ischemic cardiomyopathy Category: Medical Plan x Coding Level of Care Code Procedure Only Diagnoses ICD (implantable cardioverter-defibrillator) in place Z95.810 Ischemic cardiomyopathy I25.5 CPT Codes Cardiac Device Check - Cardiac Device 15: [id number] Cardiac Device Interrogation, cardio physiologic monitor ([id number])
== END ==
PROVIDERS: PCP Internal Medicine; Visit Provider Internal Medicine
DX: I25.5 Ischemic cardiomyopathy (principal); Z95.810 Presence of automatic (implantable) cardiac defibrillator
CPT/HCPCS: 93297

== ENCOUNTER 2024-04-14 07:00 | Inpatient (IN) | payer MEDICARE, OTHER, SELFPAY ==
[2024-04-14] VITALS (9 sets, daily range): BP systolic 110–162; BP diastolic 54–74; PULSE 65–91; RESP 14–20; TEMP 36.3–37.1; O2SAT 91–96; BMI 27.3
--- NOTE | ~2024-04-14 | CT_ITS ---
EXAMINATION: CT CHEST, ABDOMEN AND PELVIS WITH CONTRAST CLINICAL INFORMATION: Chest and abdominal trauma after fall COMPARISON: CT chest 12/04/2023, CT abdomen pelvis 03/24/2021 TECHNIQUE: Multidetector volumetric imaging was performed from the thoracic inlet through the pubic symphysis following administration of 85 mL of Omnipaque 350. Sagittal and coronal reformatted images were obtained on the technologist's workstation. This CT examination was performed using dose optimization techniques as appropriate, variously including the following: *Automated exposure control *Adjustment of mA and/or kV according to patient size (this includes techniques or standardized protocols for targeted exams where dose is matched to indication/reason for exam; i.e. extremities or head) *Use of iterative reconstruction technique DLP: 718 mGy-cm FINDINGS: CHEST: Lung: Again seen are marked emphysematous changes along with fibrotic subpleural changes and cylindrical bronchiectasis. No gross consolidation. No significant interval change when compared to the prior study. Mediastinum: A left chest wall pacemaker is present. No mediastinal or hilar lymphadenopathy. No aortic aneurysm. No proximal pulmonary emboli. Heart size is within normal limits. Coronary Artery Calcium: Extensive Pericardium/Pleura: No significant effusion. No pleural mass or thickening. Chest Wall/Axilla: Unremarkable ABDOMEN/PELVIS: Peritoneal Space: No significant free air or free fluid identified. Liver, Gallbladder, Biliary Tree: The liver is normal in size, shape, and attenuation. No focal hepatic lesion or biliary ductal dilatation is present. Status post cholecystectomy Pancreas: Unremarkable Spleen: Unremarkable Adrenal Glands: Unremarkable Kidneys and Ureters: The kidneys are normal in size, shape, and attenuation. No hydronephrosis, hydroureter, or calculi seen. No perinephric stranding. Bladder: Unremarkable Gastrointestinal Tract: There is colonic diverticulosis without diverticulitis. There is an abnormal area the distal transverse colon which is suspicious for a colonic neoplasm (10:22). In the correct clinical setting, this could possibly be an area of diverticulitis with 1 thickened diverticula. However, a colonic neoplasm needs to be excluded. This is a new finding when compared to the 03/24/2021 study. Abdominal Wall: No significant hernia is appreciated. Lymph Nodes: No lymphadenopathy. Vascular: Calcific atherosclerotic changes are present in the aorta and iliofemoral vessels. There is no evidence of an abdominal aortic aneurysm.. The IVC appears unremarkable. PELVIC VISCERA: Fiducial markers are present in the prostate. No pelvic fluid or blood is seen. OSSEUS STRUCTURES: Marked degenerative changes are present in the lumbar spine with the most severe from L4 through S1. No evidence of acute traumatic osseous injury. No bony destructive lesions are seen. CT/CT abdomen pelvis w IV con IMPRESSION: 1. No evidence of an acute traumatic injury in the chest, abdomen or pelvis. 2. Incidental note made of marked emphysematous changes with fibrotic changes and cylindrical bronchiectasis. 3. Abnormal area in the distal transverse colon suspicious for a colonic neoplasm. Colonoscopy is recommended for further evaluation. 4. Other incidental findings as described above. Fleischner guidelines were followed. Electronically signed by: Alexandre Gutierrez MD 04/14/2024 09:22 AM EDT
--- NOTE | ~2024-04-14 | CT_ITS ---
EXAMINATION: CT HEAD WITHOUT CONTRAST CT CERVICAL SPINE WITHOUT CONTRAST CLINICAL INFORMATION: Fall. Head strike. Neck pain. COMPARISON: Head CTs dating between June 24, 2023 and March 08, 2018. CT scan of the cervical spine dated June 24, 2023. TECHNIQUE: CT of the head and cervical spine were performed without intravenous contrast. Multiplanar reformats were rendered and reviewed. This CT examination was performed using dose optimization techniques as appropriate, variously including the following: *Automated exposure control *Adjustment of mA and/or kV according to patient size (this includes techniques or standardized protocols for targeted exams where dose is matched to indication/reason for exam; i.e. extremities or head) *Use of iterative reconstruction technique DLP: 993 mGy-cm. FINDINGS: CT head: No intracranial hemorrhage, large acute infarction, or mass lesion is seen. Right posterior parietal encephalomalacia suggesting old infarct, unchanged compared with June 24, 2023. Age-appropriate diffuse cortical atrophy and chronic bilateral periventricular white matter ischemic change. No change in bilateral nonspecific cerebellar parenchymal calcification. No extra-axial collection is appreciated. The ventricles are normal in size and configuration without evidence of hydrocephalus. The visualized paranasal sinuses and mastoid air cells are clear. CT cervical spine: The vertebral body heights appear maintained. No cervical spine fracture is seen. Approximately 2-3 mm anterior subluxation of C5 on C6, not evident on June 24, 2023. Moderate bilateral neuroforaminal narrowing at C3-C5. No paraspinal soft tissue swelling is seen. Calcification of the carotid bulbs. Biapical fibrotic changes and mild emphysema. CT/CT cervical spine wo IV con IMPRESSION: CT head: No acute intracranial finding. CT cervical spine: No cervical spine fracture or traumatic malalignment identified. Electronically signed by: Roque Mares MD 04/14/2024 08:50 AM EDT
--- NOTE | ~2024-04-14 | CT_ITS ---
EXAMINATION: CT ABDOMEN AND PELVIS WITHOUT CONTRAST CLINICAL INFORMATION: Follow-up transverse colon mass COMPARISON: CT abdomen and pelvis 04/14/2024: There is an abnormal area the distal transverse colon which is suspicious for a colonic neoplasm (10:22). In the correct clinical setting, this could possibly be an area of diverticulitis with 1 thickened diverticula. However, a colonic neoplasm needs to be excluded. This is a new finding when compared to the 03/24/2021 study. TECHNIQUE: Multidetector volumetric imaging was performed from the superior aspect of the liver through the pubic symphysis. Sagittal and coronal reformatted images were obtained on the technologist's workstation. This CT examination was performed using dose optimization techniques as appropriate, variously including the following: *Automated exposure control *Adjustment of mA and/or kV according to patient size (this includes techniques or standardized protocols for targeted exams where dose is matched to indication/reason for exam; i.e. extremities or head) *Use of iterative reconstruction technique DLP: 560 mGy-cm FINDINGS: LUNG BASES: There are changes of COPD along with traction bronchiectasis and early fibrotic changes. No focal consolidations, pleural effusions or suspicious lung masses. LIVER, GALLBLADDER, AND BILIARY TREE: The liver is normal in size, shape, and attenuation. No focal hepatic lesion or biliary ductal dilatation is present. Status post cholecystectomy. PANCREAS: Unremarkable. SPLEEN: Unremarkable. ADRENAL GLANDS: Unremarkable. KIDNEYS AND URETERS: The kidneys are normal in size, shape, and attenuation. No hydronephrosis, hydroureter, or calculi seen. No perinephric stranding. BLADDER: Unremarkable. GASTROINTESTINAL TRACT: The previously seen and thickened area of distal transverse colon with some mucosal thickening of the proximal descending colon has resolved. This segment of colon now appears normal. Findings may have related to resolved colitis or possibly resolved mild diverticulitis (although the interval of only 3 days seems a bit short). In any event, a concerning finding is not present at this point in time. The small and large bowel are unremarkable. The appendix is unremarkable. ABDOMINAL WALL: No significant hernia is appreciated. LYMPH NODES: Normal. VASCULAR: Calcific atherosclerotic changes are present in the aorta and iliofemoral vessels. There is no evidence of an abdominal aortic aneurysm. PELVIC VISCERA: Fiducial markers seen in the prostate. OSSEOUS STRUCTURES: Degenerative changes again seen in the spine. CT/CT abdomen pelvis wo IV con IMPRESSION: 1. The previously seen thickened area of distal transverse colon with some mucosal thickening of the proximal descending colon has resolved. Findings may have related to resolved colitis or possibly resolved mild diverticulitis. In any event, a concerning finding is not present at this point in time. 2. Incidental note made of COPD, cholecystectomy, fiducial markers in the prostate and degenerative changes in the spine. Fleischner guidelines were followed. Electronically signed by: Alexandre Gutierrez MD 04/17/2024 01:54 PM EDT RP
--- NOTE | ~2024-04-14 | CT_ITS ---
EXAMINATION: CT HEAD WITHOUT CONTRAST CT CERVICAL SPINE WITHOUT CONTRAST CLINICAL INFORMATION: Fall. Head strike. Neck pain. COMPARISON: Head CTs dating between June 24, 2023 and March 08, 2018. CT scan of the cervical spine dated June 24, 2023. TECHNIQUE: CT of the head and cervical spine were performed without intravenous contrast. Multiplanar reformats were rendered and reviewed. This CT examination was performed using dose optimization techniques as appropriate, variously including the following: *Automated exposure control *Adjustment of mA and/or kV according to patient size (this includes techniques or standardized protocols for targeted exams where dose is matched to indication/reason for exam; i.e. extremities or head) *Use of iterative reconstruction technique DLP: 993 mGy-cm. FINDINGS: CT head: No intracranial hemorrhage, large acute infarction, or mass lesion is seen. Right posterior parietal encephalomalacia suggesting old infarct, unchanged compared with June 24, 2023. Age-appropriate diffuse cortical atrophy and chronic bilateral periventricular white matter ischemic change. No change in bilateral nonspecific cerebellar parenchymal calcification. No extra-axial collection is appreciated. The ventricles are normal in size and configuration without evidence of hydrocephalus. The visualized paranasal sinuses and mastoid air cells are clear. CT cervical spine: The vertebral body heights appear maintained. No cervical spine fracture is seen. Approximately 2-3 mm anterior subluxation of C5 on C6, not evident on June 24, 2023. Moderate bilateral neuroforaminal narrowing at C3-C5. No paraspinal soft tissue swelling is seen. Calcification of the carotid bulbs. Biapical fibrotic changes and mild emphysema. CT/CT head/brain wo IV con IMPRESSION: CT head: No acute intracranial finding. CT cervical spine: No cervical spine fracture or traumatic malalignment identified. Electronically signed by: Roque Mares MD 04/14/2024 08:50 AM EDT
--- NOTE | 2024-04-14 07:06 | ED_ITS ---
HPI - General Adult General Chief complaint: Syncope Stated complaint: FALL, +BLOOD THINNERS Time Seen by Provider: 04/14/24 07:12 Source: patient and EMS Mode of arrival: EMS Limitations: no limitations History of Present Illness ED Provider: Lindsey HPI narrative: 83yo M PMHx vtach with ICD, HTN, ischemic cardiomyopathy, CVA, interstitial lung disease, COPD, polymyalgia rheumatica, BIBA s/p unwitnessed fall, (+) head strike with LOC no thinners. Patient states he was feeling a bit lightheaded last night and got up to use the bathroom but was not able to make it that far. He does not recall falling or hitting the ground, just remembers waking up on the ground. Endorses lightheadedness and dizziness prior to the fall but denies headache, CP, SOB, palpiationspreceding the fall. Mild diffuse headache, no neck pain. Currently denying CP, SOB, N/V, abd pain, extremity pain, back pain. Related Data Home Medications ?Medication ?Instructions ?Recorded ?Confirmed aspirin 81 mg tablet,delayed 81 mg PO DAILY 08/18/20 03/03/24 release calcium carbonate (Calcium 500) 500 mg PO DAILY 07/05/21 03/03/24 Previous Rx's ?Medication ?Instructions ?Recorded fluticasone propionate 50 2 spray intranasal DAILY 30 days 05/03/23 mcg/actuation nasal #15.8 mL spray,suspension albuterol sulfate 90 mcg/actuation 2 puff inhalation Q6H PRN 05/05/23 aerosol inhaler shortness of breath or wheezing #6.7 grams allopurinol 100 mg tablet 100 mg PO DAILY #90 tabs 08/01/23 fluticasone fur. 200 mcg-umeclid 1 inh inhalation DAILY 30 days #60 10/01/23 62.5 mcg-vilant 25 mcg ea inhalat.powder (Trelegy Ellipta) montelukast 10 mg tablet 10 mg PO BEDTIME 30 days #30 tabs 11/07/23 (Singulair) atorvastatin 40 mg tablet 40 mg PO BEDTIME #60 tabs 12/28/23 sacubitril 49 mg-valsartan 51 mg 1 tab PO BID 90 days #180 tabs 01/01/24 tablet (Entresto) alendronate 70 mg tablet 70 mg PO QWEEK #12 tabs 02/19/24 cholecalciferol (vitamin D3) 25 25 mcg PO DAILY #30 caps 02/27/24 mcg (1,000 unit) capsule clopidogrel 75 mg tablet 75 mg PO DAILY #90 tabs 03/22/24 tamsulosin 0.4 mg capsule 0.4 mg PO BEDTIME 90 days #90 caps 04/01/24 Allergies Allergy/AdvReac Type Severity Reaction Status Date / Time No Known Allergies Allergy Verified 04/14/24 07:16 [No Known Allergies*] Review of Systems 2 Review of Systems: Yes all other systems are reviewed and are negative [facility] Past Medical History Attestation statement: The following information was validated with the patient. Source: old records reviewed and nursing notes reviewed Medical History Allergies Dental abscess Dysphagia Elevated PSA Abrasion Bursitis of left shoulder Joint pain Effusion, left knee Prostate nodule Microscopic hematuria Bladder outlet obstruction Pes anserinus bursitis of right knee Effusion, right knee Ventricular tachycardia Ischemic cardiomyopathy Atherosclerotic cardiovascular disease Cardiomyopathy Pacemaker ILD (interstitial lung disease) Pulmonary nodules COPD (chronic obstructive pulmonary disease) Bursitis of right shoulder Medial meniscus tear Osteoarthritis of right knee Surgical History History of carpal tunnel release History of cholecystectomy History of tonsillectomy History of colonoscopy Family History Family History Father No problems noted. Mother No problems noted. Son No problems noted. Social History Social History Household Members: Spouse Housing: Condominium Do you presently have visiting nurse or other home services: No Alcohol intake: current Alcohol intake frequency: does not drink Alcohol type: beer Comment: once Q 3-6 month glass of wine Patient Tobacco Use Status: Former Tobacco user Tobacco use type: Cigarette Years Smoked: 30 years Advance Directives: Yes Advance Directives on File: Yes Advance Directives Date on File: 06/24/23 Do you have a plan to hurt others: No Plan service: No Current occupational status: retired 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 Cognitive needs: No Hearing needs: Yes Vision needs: Yes Physical Exam ED Vital Signs: Vital Signs - 24 hr 09/30/24 07:12 04/14/24 08:30 04/14/24 10:05 Temperature 97.6 F Pulse Rate 65 77 Respiratory Rate 16 16 Blood Pressure 132/54 L 144/65 H Pulse Oximetry 94 96 94 Oxygen Delivery Method Room Air Room Air Room Air BMI result Body Mass Index 27.3 VSS Appearance: Alert.? Oriented X3.? No acute distress.? Head: 2cm superficial lac to L eyebrow, dried blood at wound borders. No active bleeding Eyes: Pupils equal, round and reactive to light.?+ small abrasion overlying right eyebrow ENT: External ears normal, TMs normal bilaterally and EAC's normal. Neck: Collar CVS: Normal heart rate and rhythm.? Pulses normal.? Respiratory: No respiratory distress.? Breath sounds normal.? Abdomen: Soft and nontender.? Skin: Skin warm and dry.? Normal skin color.? Normal skin turgor.?2cm superficial lac to L eyebrow, dried blood at wound borders. No active bleeding Extremities: No lower extremity edema.? No calf ttp. 5/5 strength to bilateral upper and lower extremities Back: No midline tenderness, no C-spine tenderness, full range of motion Neuro: Oriented X 3.? No motor deficit.? No sensory deficit. CN 2-12 intact Course Reevaluation(s) Reevaluation #1: CBC with slight leukocytosis no left shift this is likely reactive secondary to fall. Chemistry slightly low sodium however appears to be around patient's baseline 131 gentle hydration with 1 L of IV normal saline initiated at this time. Troponin negative, BNP normal. CT head and cervical spine unremarkable. CT chest, abdomen pelvis no evidence of acute traumatic injury in the chest, abdomen or pelvis incidental note of marked emphysematous changes with fibrotic changes in cylindrical bronchiectasis. Abnormal area in the distal transverse colon suspicion for possible colonic neoplasm will make patient and son aware of this. Plan hospital admission. Time: 10:30 Medications Administered Discontinued Medications Generic Name Dose Route Start Last Admin Trade Name Freq PRN Reason Stop Dose Admin Sodium Chloride 1,000 mls @ 999 mls/hr 04/14/24 08:15 04/14/24 08:26 Ns IV 04/14/24 09:15 999 mls/hr .Q1H1M EMANI Administration Iohexol 100 ml 04/14/24 08:26 04/14/24 08:26 Iohexol 350 Mg/Ml 100 Ml Infus..Btl IV 04/14/24 08:27 85 ml ONCE ONE Administration Medical Decision Making Medical Decision Making [facility] Narrative: 83yo M presenting s/p fall at home (+) headstrike and LOC. Patient does not remember falling PE: 2cm superficial lac to L eyebrow, dried blood at wound borders. No active bleeding Hx and PE concerning for syncope with head, chest, abdomen, and c-spine trauma . Will r/out intracranial hemorrhage, c-spine fx, chest and abdominal trauma, dysrhythmia, cardiogenic etiology, PE, CA Plan: CT head, chest, abd, pelvis, c-spine, labs, EKG Differential Diagnosis Differential Diagnoses: The differential diagnosis associated with the presentation includes (Hx and PE concerning for syncope with head, chest, abdomen, and c-spine trauma . Will r/out intracranial hemorrhage, c-spine fx, chest and abdominal trauma, dysrhythmia, cardiogenic etiology, PE, CA ) Admission/Observation Consideration of admission/observation: Escalation of care including admission/observation considered Possible Consult Healthcare Provider Management of the patient was discussed with: Hospitalist Lab Data [facility] Lab Attestation statement: I reviewed the patient's lab results. 04/14/24 07:33 04/14/24 07:33 Labs: Lab Results 04/14/24 04/14/24 Range/Units 07:33 10:13 WBC 10.9 H (4.8-10.8) X10*3/uL RBC 3.98 L (4.60-5.80) X10*6/uL Hgb 13.9 L (14.0-18.0) g/dl Hct 38.2 L (42.0-52.0) % MCV 96.0 (80.0-98.0) fL MCH 34.9 H (27.0-33.0) pg MCHC 36.4 H (31.0-36.0) g/dl RDW 13.2 (11.0-16.0) % Plt Count 199 (160-400) X10*3/uL MPV 8.9 L (9.4-12.4) fL Immature Gran % (Auto) 0.6 H (0.0-0.4) % Neut % (Auto) 79.0 H (45-73) % Lymph % (Auto) 12.4 L (20-40) % [place] % (Auto) 5.9 (2-11) % Eos % (Auto) 1.7 (0-4) % Baso % (Auto) 0.4 (0-2) % Lymph # (Auto) 1.4 (1.2-4.9) X10*3/uL [place] # (Auto) 0.6 (0.1-1.2) X10*3/uL Eos # (Auto) 0.2 (0.0-0.4) X10*3/uL Baso # (Auto) 0.0 (0.0-0.2) X10*3/uL Abs Immat Gran (auto) 0.06 H (0.00-0.03) X10*3/uL Absolute Neuts (auto) 8.6 H (2.0-8.3) x10*3/uL Absolute Nucleated RBC 0.000 (0.0-0.012) X10*3/uL Nucleated RBC % (auto) 0.0 (0.0-0.2) /100WBC PT 10.9 (10.9-12.4) SEC INR 0.9 (0.9-1.1) Sodium 131 L (135-145) mmol/L Potassium 4.8 (3.3-5.1) mmol/L Chloride 99 (96-108) mmol/L Carbon Dioxide 24 (22-29) mmol/L Anion Gap 13 (12-20) BUN 12 (9-16) mg/dL Creatinine 0.89 (0.5-1.4) mg/dL Estim Creat Clear Calc 61.3 Estimated GFR > 60 Random Glucose 185 H (60-115) mg/dL Calcium 8.9 (8.4-10.2) mg/dL Magnesium 2.2 (1.6-2.6) mg/dL Total Bilirubin 0.8 (0.0-1.0) mg/dL AST 18 (5-37) U/L ALT 20 (0-40) U/L Alkaline Phosphatase 58 (39-117) U/L Troponin I High Sens < 2.7 (<3.5-35.0) ng/L B-Natriuretic Peptide 57 (<100) pg/mL Total Protein 6.6 (6.5-8.0) g/dL Albumin 3.8 (3.5-5.0) g/dL Urine Color Yellow Urine Appearance Clear Urine pH 7.0 (5.0-9.0) Ur Specific [place] >= 1.030 H (1.005-1.025) Urine Protein Negative (Neg-Trace) mg/dL Urine Glucose (UA) Negative (Negative) mg/dL Urine Ketones Negative (Negative) mg/dL Urine Blood Negative (Negative) Urine Nitrite Negative (Negative) Ur Leukocyte Esterase Negative (Negative) Independent Interpretation I performed an independent interpretation of an: CT Scan (CT/CT abdomen pelvis w IV con IMPRESSION: 1. No evidence of an acute traumatic injury in the chest, abdomen or pelvis. 2. Incidental note made of marked emphysematous changes with fibrotic changes and cylindrical bronchiectasis. 3. Abnormal area in the distal transverse colon suspicious for a ) Radiology Impression Discussion of test interpretation with radiology: I have reviewed the radiologist's reading. External Record Review External record reviewed: Inpatient record, Office record, Outpatient record, Prior outpatient labs, Prior outpatient radiology, Primary care record and Outside ED record Chronic Conditions Patient?s care impacted by: Other (copd, ccp +, ILD, CVA, cardiomyopaty ) Critical Care Time Critical Care Time Critical Care Time: Yes Total Critical Care Time: 35 Attestation: I attest to this time spent taking care of the patient, obtaining history, physical, reviewing labs, imaging, treatment of patients condition +/- specialist/hospitalist consult Discharge Plan Discharge Clinical Impression: Syncope, Acute hyponatremia, Colonic mass Patient Disposition: Still a Patient Prescriptions: No Action Treleramirez Ellipta 200-62.5-25 mcg blister with device 1 inh inhalation DAILY 30 Days Qty: 60 12RF atorvastatin 40 mg tablet 40 mg PO BEDTIME Qty: 60 2RF Entresto 49-51 mg tablet 1 tab PO BID 90 Days Qty: 180 0RF alendronate 70 mg tablet 70 mg PO QWEEK Qty: 12 1RF cholecalciferol (vitamin D3) 25 mcg (1,000 unit) capsule 25 mcg PO DAILY Qty: 30 2RF clopidogrel 75 mg tablet 75 mg PO DAILY Qty: 90 1RF tamsulosin 0.4 mg capsule 0.4 mg PO BEDTIME 90 Days Qty: 90 1RF albuterol sulfate 90 mcg/actuation HFA aerosol inhaler 2 puff inhalation Q6H PRN (Reason: shortness of breath or wheezing) Qty: 6.7 0RF allopurinol 100 mg tablet 100 mg PO DAILY Qty: 90 3RF aspirin 81 mg tablet,delayed release (DR/EC) 81 mg PO DAILY calcium carbonate [Calcium 500] 500 mg calcium (1,250 mg) tablet 500 mg PO DAILY montelukast [Singulair] 10 mg tablet 10 mg PO BEDTIME 30 Days Qty: 30 11RF fluticasone propionate 50 mcg/actuation spray,suspension 2 spray intranasal DAILY 30 Days Qty: 15.8 11RF Print Language: Lithuanian
--- NOTE | 2024-04-14 07:08 | ECG_ITS ---
Test Reason : fall Blood Pressure : / mmHG Vent. Rate : 067 BPM Atrial Rate : 067 BPM P-R Int : 260 ms QRS Dur : 092 ms QT Int : 430 ms P-R-T Axes : -04 -18 033 degrees QTc Int : 454 ms Atrial-paced rhythm with prolonged AV conduction Inferior infarct (cited on or before 28-JAN-2018) Anteroseptal infarct (cited on or before 15-SEP-2012) Abnormal ECG When compared with ECG of 24-JUN-2023 05:10, Electronic atrial pacemaker has replaced Sinus rhythm Referred By: Benoit Portillo Electronically Signed By:JENNYFER MONET
[2024-04-14 07:37] LABS: MANUAL DIFF FLAG NO
[2024-04-14 07:41] LABS: Basophils Percent Auto 0.4 % (0-2); Eosinophils Absolute Auto 0.2 X10*3/uL (0.0-0.4); Eosinophils Percent Auto 1.7 % (0-4); Hematocrit 38.2 % (42.0-52.0); Hemoglobin 13.9 g/dl (14.0-18.0); Imm Gran Abs Auto 0.06 X10*3/uL (0.00-0.03); Imm Gran Pct Auto 0.6 % (0.0-0.4); Lymphocytes Absolute Auto 1.4 X10*3/uL (1.2-4.9); Lymphocytes Percent Auto 12.4 % (20-40); Mean Corpuscular HGB Conc 36.4 g/dl (31.0-36.0); Mean Corpuscular Hemoglobin 34.9 pg (27.0-33.0); Mean Platelet Volume 8.9 fL (9.4-12.4); Monocytes Absolute Auto 0.6 X10*3/uL (0.1-1.2); Monocytes Percent Auto 5.9 % (2-11); Neutrophils Absolute Auto 8.6 x10*3/uL (2.0-8.3); Platelet Count 199 X10*3/uL (160-400); Red Blood Count 3.98 X10*6/uL (4.60-5.80); Red Cell Distribution Width 13.2 % (11.0-16.0); White Blood Count 10.9 X10*3/uL (4.8-10.8)
[2024-04-14 07:45] LABS: INTERNATIONAL NORM RATIO 0.9 (0.9-1.1); Prothrombin Time 10.9 SEC (10.9-12.4)
[2024-04-14 07:53] LABS: Alanine Aminotransferase 20 U/L (0-40); Albumin Level 3.8 g/dL (3.5-5.0); Alkaline Phosphatase 58 U/L (39-117); Anion Gap 13 (12-20); Aspartate Amino Transferase 18 U/L (5-37); Bilirubin Total 0.8 mg/dL (0.0-1.0); Blood Urea Nitrogen 12 mg/dL (9-16); Calcium 8.9 mg/dL (8.4-10.2); Carbon Dioxide 24 mmol/L (22-29); Chloride 99 mmol/L (96-108); Creatinine Clr Calc Pharmacy 61.3; Estimated Glomerular Filt Rate > 60; Glucose Random 185 mg/dL (60-115); Magnesium 2.2 mg/dL (1.6-2.6); Potassium 4.8 mmol/L (3.3-5.1); Sodium 131 mmol/L (135-145); Total Protein 6.6 g/dL (6.5-8.0)
[2024-04-14 07:59] LABS: B Type Natriuretic Peptide 57 pg/mL (<100)
[2024-04-14 08:02] LABS: Troponin-I High Sensitivity < 2.7 ng/L (<3.5-35.0)
[2024-04-14] MEDS: iohexoL 350 MG/ML 100 ML INFUS..BTL IV (08:26)
[2024-04-14] MEDS: 0.9 % Sodium Chloride 1,000 ML 999 ML IV (08:26)
--- NOTE | 2024-04-14 10:08 | PC.NURSE ---
patient wanted to stand to urinate in urinal, yellow socks placed on patient & one assist standing. patient able to void 300 cc yellow clear urine. patient steady while standing
[2024-04-14 10:22] LABS: Appearance Urine Clear; Color Urine Yellow; Glucose Urine UA Negative (Negative); Leukocyte Esterase Urine Negative (Negative); Nitrite Urine Negative (Negative); Specific Gravity - Urine >= 1.030 (1.005-1.025); Urine Blood Negative (Negative); Urine Ketones Negative (Negative); Urine Protein Negative (Neg-Trace)
[2024-04-14 10:44] LABS: Troponin-I High Sensitivity < 2.7 ng/L (<3.5-35.0)
--- NOTE | 2024-04-14 10:58 | PM.IMHP ---
History of Present Illness Date of Service: 04/14/24 Chief Complaint: Syncope 83-year-old male with past medical history significant for V-tach with AICD followed by Dr. Flaherty, hypertension, ischemic cardiomyopathy, CVA, interstitial lung disease, PMR. Brought in by ambulance after an unwitnessed fall. Patient states he was getting up this morning after having some mild abdominal discomfort. States he took a few steps and felt dizzy returned to bed. He states symptoms resolved he had attempted to walk to the bathroom again and woke up on the floor with his standing over him. Denies palpitations chest pain or shortness of breath prior to fall. Laceration above left thigh with contusion to left cheek secondary to fall breaking glasses. In the emergency room CTA of head/spine/chest/abdomen and pelvis failed to demonstrate any acute pathology the could be responsible for presenting complaint. Of note, there was found colonic mass in the transverse colon; new to patient. Can not recall his last colonoscopy. He will be admitted for workup of the same Review of Systems Review of Systems: Denies chest pain Denies shortness of breath Denies nausea vomiting diarrhea Admits to crampy abdominal pain Denies fever chills [facility] Medical History Allergies Dental abscess Dysphagia Elevated PSA Abrasion Bursitis of left shoulder Joint pain Effusion, left knee Prostate nodule Microscopic hematuria Bladder outlet obstruction Pes anserinus bursitis of right knee Effusion, right knee Ventricular tachycardia Ischemic cardiomyopathy Atherosclerotic cardiovascular disease Cardiomyopathy Pacemaker ILD (interstitial lung disease) Pulmonary nodules COPD (chronic obstructive pulmonary disease) Bursitis of right shoulder Medial meniscus tear Osteoarthritis of right knee Family History Father No problems noted. Mother No problems noted. Son No problems noted. Surgical History History of carpal tunnel release History of cholecystectomy History of tonsillectomy History of colonoscopy Social History Household Members: Sp[facility] Do you presently have visiting nurse or other home services: No Alcohol intake: current Alcohol intake frequency: does not drink Alcohol type: beer Comment: once Q 3-6 month glass of wine Patient Tobacco Use Status: Former Tobacco user Tobacco use type: Cigarette Years Smoked: 30 years Advance Directives: Yes Advance Directives on File: Yes Advance Directives Date on File: 06/24/23 Do you have a plan to hurt others: No Plan service: No Current occupational status: retired 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 Cognitive needs: No Hearing needs: Yes Vision needs: Yes Meds Allergies Allergy/AdvReac Type Severity Reaction Status Date / Time No Known Allergies Allergy Verified 04/14/24 07:16 [No Known Allergies*] Active Medications: Current Medications Acetaminophen (Acetaminophen 325 Mg Tablet) 650 mg PO Q6H PRN PRN Reason: Pain, Mild (Pain Scale 1-3), fever or headache Calcium Carbonate (Calcium Carbonate 750 Mg Tab.Chew) 750 mg PO Q4H PRN PRN Reason: Heartburn Enoxaparin Sodium (Enoxaparin Sodium 40 Mg/0.4 Ml Syringe) 40 mg SUBCUT Q24H EMANI Magnesium Hydroxide (Milk Of Magnesia 30 Ml Oral.Susp) 30 ml PO DAILY PRN PRN Reason: Constipation Melatonin (Melatonin 3 Mg Tablet) 6 mg PO BEDTIME PRN PRN Reason: Insomnia Ondansetron HCl (Ondansetron Hcl 4 Mg/2 Ml Vial) 4 mg IVPUSH Q8H PRN PRN Reason: Nausea and Vomiting Sodium Chloride (0.9 % Sodium Chloride Flush 3 Ml Syringe) 3 ml IVFLUSH QSHIFT [facility] Home Medications ?Medication ?Instructions ?Recorded ?Confirmed ?Last Taken ?Type aspirin 81 mg tablet,delayed 81 mg PO DAILY 08/18/20 03/03/24 06/23/23 History release calcium carbonate (Calcium 500) 500 mg PO DAILY 07/05/21 03/03/24 06/23/23 History Physical Exam Vital Signs and Narrative: Vital Signs: Last Vital Signs Temp 97.8 F 04/14/24 10:47 Pulse 75 04/14/24 10:47 Resp 18 04/14/24 10:47 BP 162/74 H 04/14/24 10:47 Pulse Ox 95 04/14/24 10:47 O2 Del Method Room Air 04/14/24 10:47 BMI result Body Mass Index 27.3 Const: Other: Awake alert no acute distress HEENT: Other: Small laceration above left eye repaired in ER. Contusion low left orbital rim Resp: Other: End inspiratory crackles heard bilateral bases (consistent with interstitial lung disease). No rales rhonchi or wheezes Cardio: Other: No S4; positive S1-S2; no S3 murmurs rubs or gallops GI: Other: Soft nontender nondistended normoactive bowel sounds Neuro: Other: Cranial nerves 2-12 grossly intact as tested. Motor is 5/5 all extremities. Sensation is intact. Gait not observed. Cognition appropriate Extrem: Other: No edema bilaterally Results Labs 04/14/24 07:33 04/14/24 07:33 Labs: Laboratory Results - last 24 hr 04/14/24 04/14/24 07:33 10:13 MCV 96.0 MCH 34.9 H MCHC 36.4 H RDW 13.2 Plt Count 199 MPV 8.9 L Immature Gran % (Auto) 0.6 H Neut % (Auto) 79.0 H Lymph % (Auto) 12.4 L [place] % (Auto) 5.9 Eos % (Auto) 1.7 Baso % (Auto) 0.4 Lymph # (Auto) 1.4 [place] # (Auto) 0.6 Eos # (Auto) 0.2 Baso # (Auto) 0.0 Abs Immat Gran (auto) 0.06 H Absolute Neuts (auto) 8.6 H Absolute Nucleated RBC 0.000 Nucleated RBC % (auto) 0.0 PT 10.9 INR 0.9 Anion Gap 13 Estim Creat Clear Calc 61.3 Estimated GFR > 60 Random Glucose 185 H Calcium 8.9 Magnesium 2.2 Total Bilirubin 0.8 AST 18 ALT 20 Alkaline Phosphatase 58 Troponin I High Sens < 2.7 < 2.7 B-Natriuretic Peptide 57 Total Protein 6.6 Albumin 3.8 Urine Color Yellow Urine Appearance Clear Urine pH 7.0 Ur Specific [place] >= 1.030 H Urine Protein Negative Urine Glucose (UA) Negative Urine Ketones Negative Urine Blood Negative Urine Nitrite Negative Ur Leukocyte Esterase Negative Imaging Radiologist's Impressions: Impressions Chest CT 04/14/24 07:08 IMPRESSION: 1. No evidence of an acute traumatic injury in the chest, abdomen or pelvis. 2. Incidental note made of marked emphysematous changes with fibrotic changes and cylindrical bronchiectasis. 3. Abnormal area in the distal transverse colon suspicious for a colonic neoplasm. Colonoscopy is recommended for further evaluation. 4. Other incidental findings as described above. Fleischner guidelines were followed. Electronically signed by: Alexandre Gutierrez MD 04/14/2024 09:22 AM EDT RP Head CT 04/14/24 07:08 IMPRESSION: CT head: No acute intracranial finding. CT cervical spine: No cervical spine fracture or traumatic malalignment identified. Electronically signed by: Roque Mares MD 04/14/2024 08:50 AM EDT RP Cervical Spine CT 04/14/24 08:08 IMPRESSION: CT head: No acute intracranial finding. CT cervical spine: No cervical spine fracture or traumatic malalignment identified. Electronically signed by: Roque Mares MD 04/14/2024 08:50 AM EDT RP Abdomen/Pelvis CT 04/14/24 08:11 IMPRESSION: 1. No evidence of an acute traumatic injury in the chest, abdomen or pelvis. 2. Incidental note made of marked emphysematous changes with fibrotic changes and cylindrical bronchiectasis. 3. Abnormal area in the distal transverse colon suspicious for a colonic neoplasm. Colonoscopy is recommended for further evaluation. 4. Other incidental findings as described above. Fleischner guidelines were followed. Electronically signed by: Alexandre Gutierrez MD 04/14/2024 09:22 AM EDT RP Assessment and Plan (1) Syncope: Qualifiers: Syncope type: unspecified Qualified Code(s): R55 - Syncope and collapse Status: Acute (2) Acute hyponatremia: Status: Acute (3) Colonic mass: Status: Acute Plan 83-year-old male with past medical history significant for V-tach with AICD followed by Dr. Flaherty, hypertension, ischemic cardiomyopathy, CVA, interstitial lung disease, PMR. Brought in by ambulance after an unwitnessed fall. Workup in emergency room including CTA of head/chest/abdomen/pelvis failed to demonstrate any pathology that would be responsible for admitting complaint. New small transverse colon mass incidentally found on abdomen CT 1. Syncope (in backdrop of ischemic cardiomyopathy with history of V-tach requiring AICD) -admit to telemetry; cardiology consult -2D echo -pacer interrogation as per Cardiology -ultrasound of carotids 2. Hypertension -acceptable control on current therapies -adjust as indicated 3. History of V tach arrest -continue amiodarone 4. COPD/I LD -stable and well compensated -adjust therapies as clinically indicated 5. Colonic mass (transverse colon) -unknown last colonoscopy -GI consult Full code [employer] Patient will require 2 midnights of inpatient stay going forward for workup of syncope along with specialist consultation. This can not be achieved a lesser acute setting Quality Stroke Does the patient have a stroke diagnosis?: No VTE Prior VTE?: No VTE Risk Level:: Medical - moderate - high VTE Device Contraindication: Treatment Not Indicated VTE Drug Contraindication: N/A - Med Ordered
--- NOTE | 2024-04-14 11:26 | PHA.MEDREC ---
Addendum entered by Sushila Benjamin RPh 04/14/24 11:44: Reviewed by [facility] Original Note: Pharmacy Consult ? Medication Reconciliation Pharmacy has completed the medication reconciliation. Confirmed medications with patient. Patient states they take Alendronate 70mg once a week on Fridays and he confirmed he took it this past Sunday04/11/24. He states he took his medications last yesterday.
--- NOTE | 2024-04-14 12:00 | CA_ITS ---
Transthoracic Echocardiogram Patient (Last, First, Middle): Deacon Keyes C Gender: Male Date of : 1940 Age: 83 Procedure Date: 04/14/2024 Procedure Type: Transthoracic Echocardiogram Location: ER Height: 167.64 cm Weight: 76.66 kg BSA: 1.86 m2 Heart Rate: 82 bpm BP: 140 / 64 mmHg Pile Driver Operator: SB Referring MD: Brian Carter DO Symptoms: syncope Study Quality: Adequate w contrast ECG Rhythm: Sinus Conclusions: - Normal left ventricular cavity size. There is normal left ventricular wall thickness. The left ventricular systolic function is low normal. The visually estimated ejection fraction is between 50-55%. - E/E prime ratio is between 8 and 15 consistent with indeterminate filling pressures. - The apex, apical inferior, apical septum, mid inferoseptal, and mid anteroseptal segments are akinetic. - Normal right ventricular cavity size and systolic function. - There is mild aortic valve regurgitation. Findings Procedure Information Contrast agent, definity, is being given per protocol without apparent complications. Left Ventricle Normal left ventricular cavity size. There is normal left ventricular wall thickness. The left ventricular systolic function is low normal. The visually estimated ejection fraction is between 50-55%. There is evidence of regional wall motion abnormalities. Abnormal diastolic function is noted. Spectral Doppler is indicative of an impaired relaxation filling pattern. E/E prime ratio is between 8 and 15 consistent with indeterminate filling pressures. Wall Motion Rest Echo Findings The apex, apical inferior, apical septum, mid inferoseptal, and mid anteroseptal segments are akinetic. Right Ventricle Normal right ventricular cavity size and systolic function. There is an ICD wire seen in the right ventricle. Atria The left atrium is normal in size. Aortic Valve There is a normal trileaflet aortic valve. There is mild calcification of the aortic valve. There is no aortic valve stenosis. There is mild aortic valve regurgitation. Mitral Valve The mitral valve appears normal. There is no mitral valve regurgitation. There is no mitral valve stenosis. Pulmonic Valve The pulmonic valve is normal. There is no pulmonic valve regurgitation. Tricuspid Valve Normal right atrial pressure. There is no evidence of pulmonary hypertension. Great Vessels All visible segments of the aorta are normal in size. The visualized portions of the pulmonary artery and branches are normal. Venous The inferior vena cava is normal in size and collapses greater than 50% with inspiration. Pericardium/Pleural There is no evidence of pericardial effusion. Prior Study Comparison Changes noted compared to prior study dated: 06/25/2023. LVEF 50-55%. Measurements 2D Linear Measurements IVSd: 1.08 0.6-0.9/0.6-1.0 cm LVIDd: 4.95 3.9-5.3/4.2-5.9 cm LVIDd Index: 2.66 2.4-3.2/2.2-3.1 cm/m2 LVIDs: 3.51 2.0-3.6 cm LA Diam: 3.70 2.7-3.8/3.0-4.0 cm LAIDs Index: 1.99 1.5-2.3 cm/m2 LVOT Diam: 2.20 3.0+(-)1.3 cm 2D Systolic Function EF 4C: 48.80 >55% EF 2C: 60.50 >55% EF BiP: 56.70 >55% Mitral Valve MV Pk E: 0.43 MV PK A: 1.07 E/A: 0.40 E'Lateral: 4.79 E'Medial: 3.15 E/E' Med: 13.60 E/E' Lat: 8.90 Aortic Valve AoV Pk Ashu: 1.35 AoV Mn Ashu: 0.90 AoV VTI: 0.30 AoV Pk Grad: 7.00 Aov Mn Grad: 4.00 ERICA Cont.VTI: 2.27 LVOT LVOT Pk Ashu: 0.81 LVOT Mn Ashu: 0.61 LVOT VTI: 0.18 LVOT Pk Grad: 3.00 LVOT Mn Grad: 2.00 LVOT Diam: 2.20 LVOT Area: 3.80 Diastolic Function MV Pk E: 0.43 MV Pk A: 1.07 E/A: 0.40 E'Medial: 3.15 E/E' Med: 13.60 E' Laterial: 4.79 E/E' Lat: 8.90 Right Ventricle TAPSE (mm): 21.90 TVS' Ashu: 13.50 Tricuspid Valve TR Pk Ashu: 1.91 TR Pk Grad: 15.00 RA Press: 3.00 RVSP: 18.00 Great Vessels Aorta Sinus of Valsalva: 3.80 2.0-3.5 cm Ao Asc: 3.50 2.1-3.4 cm Pulmonary Valve PV Pk Ashu: 0.92 Peak PV Grad: 3.00 Updated in Other Vendor System with Status of Final Checo Farmer MD electronically signed on 04/15/2024 1:58:12 PM with status of Final
--- NOTE | 2024-04-14 12:04 | P.CONCA_ITS ---
History of Present Illness History of Present Illness Date of Service: 04/14/24 Requesting physician: Brian Carter Chief complaint: syncope Narrative: Pleasant 83-year-old gentleman with known history of coronary artery disease with previous anterior wall MS and cardiomyopathy. He had ventricular tachycardia and had ICD placed. Previously was on amiodarone which was stopped. He is presenting with syncope. He said he woke up to go to restroom. He has prostate cancer and wakes up few times a night. He said he felt gurgling in his abdomen and he fell dizzy/lightheaded. He said he came back to the bed to rest a little bit and the lightheaded feeling was improving. He has stood up again and walk to the restroom and then passed out. He woke up on the ground with his next to him. He said he had injury to his face and left-side of his christianity. EMS was called and eventually was brought into the emergency department. In the ER he has been stable. He had CT scan of abdomen performed which is raising concern for colonic mass. He is denying any abdominal discomfort. Denying chest discomfort or shortness of breath. Overall clinically stable. Getting some IV fluids at this point. Labs and EKG reviewed. He has chronic hyponatremia with sodium of 131. High sensitivity troponin level less than 2.7. BNP 57. PMFSH Past Medical History Medical History Allergies Dental abscess Dysphagia Elevated PSA Abrasion Bursitis of left shoulder Joint pain Effusion, left knee Prostate nodule Microscopic hematuria Bladder outlet obstruction Pes anserinus bursitis of right knee Effusion, right knee Ventricular tachycardia Ischemic cardiomyopathy Atherosclerotic cardiovascular disease Cardiomyopathy Pacemaker ILD (interstitial lung disease) Pulmonary nodules COPD (chronic obstructive pulmonary disease) Bursitis of right shoulder Medial meniscus tear Osteoarthritis of right knee Family History Family History Father No problems noted. Mother No problems noted. Son No problems noted. Surgical History Surgical History History of carpal tunnel release History of cholecystectomy History of tonsillectomy History of colonoscopy Social History Social History Household Members: Spouse Housing: Condominium Do you presently have visiting nurse or other home services: No Alcohol intake: current Alcohol intake frequency: does not drink Alcohol type: beer Comment: once Q 3-6 month glass of wine Patient Tobacco Use Status: Former Tobacco user Tobacco use type: Cigarette Years Smoked: 30 years Advance Directives: Yes Advance Directives on File: Yes Advance Directives Date on File: 06/24/23 Do you have a plan to hurt others: No Plan service: No Current occupational status: retired 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 Cognitive needs: No Hearing needs: Yes Vision needs: Yes Meds Allergies Allergy/AdvReac Type Severity Reaction Status Date / Time No Known Allergies Allergy Verified 04/14/24 07:16 [No Known Allergies*] Active Medications: Current Medications Acetaminophen (Acetaminophen 325 Mg Tablet) 650 mg PO Q6H PRN PRN Reason: Pain, Mild (Pain Scale 1-3), fever or headache Calcium Carbonate (Calcium Carbonate 750 Mg Tab.Chew) 750 mg PO Q4H PRN PRN Reason: Heartburn Enoxaparin Sodium (Enoxaparin Sodium 40 Mg/0.4 Ml Syringe) 40 mg SUBCUT Q24H [facility] Magnesium Hydroxide (Milk Of Magnesia 30 Ml Oral.Susp) 30 ml PO DAILY PRN PRN Reason: Constipation Melatonin (Melatonin 3 Mg Tablet) 6 mg PO BEDTIME PRN PRN Reason: Insomnia Ondansetron HCl (Ondansetron Hcl 4 Mg/2 Ml Vial) 4 mg IVPUSH Q8H PRN PRN Reason: Nausea and Vomiting Sodium Chloride (0.9 % Sodium Chloride Flush 3 Ml Syringe) 3 ml IVFLUSH QSHIFT [facility] Home Medications ?Medication ?Instructions ?Recorded ?Confirmed ?Last Taken ?Type aspirin 81 mg tablet,delayed 81 mg PO DAILY 08/18/20 04/14/24 04/13/24 History release alendronate 70 mg tablet 70 mg PO FR 04/14/24 04/14/24 04/11/24 History fluticasone propionate 50 2 spray intranasal DAILY PRN 04/14/24 04/14/24 04/13/24 History mcg/actuation nasal Allergy Symptoms spray,suspension Physical Exam 2 Vital Signs: Vital Signs: Last Vital Signs Temp 97.8 F 04/14/24 10:47 Pulse 75 04/14/24 10:47 Resp 18 09/30/24 10:47 BP 162/74 H 04/14/24 10:47 Pulse Ox 95 04/14/24 10:47 O2 Del Method Room Air 04/14/24 10:47 BMI result Body Mass Index 27.3 GENERAL APPEARANCE: in no acute distress, pleasant. NECK: no carotid bruit, no jugular venous distention. SKIN: Left forehead dressed. Left cheek has bruise. HEART: no murmurs, regular rate and rhythm. LUNGS: clear to auscultation bilaterally. ABDOMEN: soft, nontender. EXTREMITIES: no edema. PERIPHERAL PULSES: equal. NEUROLOGIC: No gross deficits, AAO X 3 Objective Labs and Meds 04/14/24 07:33 04/14/24 07:33 Lab results: Laboratory Results - last 24 hr 04/14/24 04/14/24 07:33 10:13 WBC 10.9 H RBC 3.98 L Hgb 13.9 L Hct 38.2 L MCV 96.0 MCH 34.9 H MCHC 36.4 H RDW 13.2 Plt Count 199 MPV 8.9 L Immature Gran % (Auto) 0.6 H Neut % (Auto) 79.0 H Lymph % (Auto) 12.4 L [place] % (Auto) 5.9 Eos % (Auto) 1.7 Baso % (Auto) 0.4 Lymph # (Auto) 1.4 [place] # (Auto) 0.6 Eos # (Auto) 0.2 Baso # (Auto) 0.0 Abs Immat Gran (auto) 0.06 H Absolute Neuts (auto) 8.6 H Absolute Nucleated RBC 0.000 Nucleated RBC % (auto) 0.0 PT 10.9 INR 0.9 Sodium 131 L Potassium 4.8 Chloride 99 Carbon Dioxide 24 Anion Gap 13 BUN 12 Creatinine 0.89 Estim Creat Clear Calc 61.3 Estimated GFR > 60 Random Glucose 185 H Calcium 8.9 Magnesium 2.2 Total Bilirubin 0.8 AST 18 ALT 20 Alkaline Phosphatase 58 Troponin I High Sens < 2.7 < 2.7 B-Natriuretic Peptide 57 Total Protein 6.6 Albumin 3.8 Urine Color Yellow Urine Appearance Clear Urine pH 7.0 Ur Specific [place] >= 1.030 H Urine Protein Negative Urine Glucose (UA) Negative Urine Ketones Negative Urine Blood Negative Urine Nitrite Negative Ur Leukocyte Esterase Negative Imaging Radiologist's impression: Impressions Chest CT 04/14/24 07:08 IMPRESSION: 1. No evidence of an acute traumatic injury in the chest, abdomen or pelvis. 2. Incidental note made of marked emphysematous changes with fibrotic changes and cylindrical bronchiectasis. 3. Abnormal area in the distal transverse colon suspicious for a colonic neoplasm. Colonoscopy is recommended for further evaluation. 4. Other incidental findings as described above. Fleischner guidelines were followed. Electronically signed by: Alexandre Gutierrez MD 04/14/2024 09:22 AM EDT RP Head CT 04/14/24 07:08 IMPRESSION: CT head: No acute intracranial finding. CT cervical spine: No cervical spine fracture or traumatic malalignment identified. Electronically signed by: Roque Mares MD 04/14/2024 08:50 AM EDT RP Cervical Spine CT 04/14/24 08:08 IMPRESSION: CT head: No acute intracranial finding. CT cervical spine: No cervical spine fracture or traumatic malalignment identified. Electronically signed by: Roque Mares MD 04/14/2024 08:50 AM EDT RP Abdomen/Pelvis CT 04/14/24 08:11 IMPRESSION: 1. No evidence of an acute traumatic injury in the chest, abdomen or pelvis. 2. Incidental note made of marked emphysematous changes with fibrotic changes and cylindrical bronchiectasis. 3. Abnormal area in the distal transverse colon suspicious for a colonic neoplasm. Colonoscopy is recommended for further evaluation. 4. Other incidental findings as described above. Fleischner guidelines were followed. Electronically signed by: Alexandre Gutierrez MD 04/14/2024 09:22 AM EDT RP Assessment and Plan (1) Colonic mass: Status: Acute (2) Syncope: Qualifiers: Syncope type: unspecified Qualified Code(s): R55 - Syncope and collapse Status: Acute Plan 83-year-old gentleman with known history of coronary artery disease with previous LAD PCI in the setting of anterior wall MS. Mild LV dysfunction. Also had episode of ventricular tachycardia and has an ICD in place at this point. Recent device interrogation did not show any significant issues. He is presenting with syncope. Overall clinical story appears to be consistent with either orthostasis or vasovagal episode from GI upset. Check orthostatics and document them. Gentle hydration as you are doing. He has concern for colon mass. GI should see him to discuss colonoscopy. I do not think he is higher risk for colonoscopy. His labs appear to be stable. No troponin elevation. BNP is normal. Really doubt this is pulmonary embolism. We will interrogate the ICD. If he is going for biopsy then he may have to hold the aspirin and Plavix. Once GI see him we can help manage the antiplatelet therapy. Thank you for allowing me to participate in the care of your patient. Please feel free to contact me if you have any questions. Procedures Date of Service Date of Service: 04/14/24
[2024-04-14] MEDS: Diphth,Pertus(ACell),Tet Adult 0.5 ML SYRINGE IM (12:44)
[2024-04-14] MEDS: Enoxaparin Sodium 40 MG/0.4 ML SYRINGE SUBCUT (12:44)
--- NOTE | 2024-04-14 17:17 | P.CNGI_ITS ---
History of Present Illness Data of Consult Service Date: 04/14/24 Requesting physician: Brian Carter Primary Care Provider: Leila Merida MD HPI Reason for consult: colon mass 83-year-old male with past medical history significant for V-tach with AICD, hypertension, ischemic cardiomyopathy, CVA, interstitial lung disease, PMR who I am seeing for assessment for possible colon mass. Patient felt dizzy and light headed this morning, he had the need to go to the bathroom but lost consciousness, called ambulance but he woke up. He bruised his cheek otherwise he feels fine. He denies chest pain, abdominal pain, SOB. He had a CT with suspicion of a colonic massbut he denies any change in bowel habit, rectal bleeding, melena etc. he does not recall his last colonoscopy. He had pacemaker check and was normal, awaiting echo. Review of Systems 2 Review of Systems: Constitutional : No Weight loss, No Fever, No Chills ENT/Mouth : No sore throat, No Rhinorrhea Eyes: No Swelling, No Redness Cardiovascular : No Chest Pain, No SOB, No Edema Respiratory : No Cough, No Sputum, No Wheezing Gastrointestinal : see HPI Genitourinary : NO Dysuria, No Urinary Frequency, No Hematuria, No Urgency Musculoskeletal : no joint pain, No Myalgias, No Joint Swelling Skin : No Skin Lesions, No rash Neuro : No Weakness, No Numbness, No Dizziness, No Headache Psych : No Anxiety/Panic, No Depression Heme/Lymph: No Bruising, No Lymphadenopathy Endocrine : No Polyuria, No Polydipsia All other systems reviewed and are negative. [facility] Past Medical History Medical History Allergies Dental abscess Dysphagia Elevated PSA Abrasion Bursitis of left shoulder Joint pain Effusion, left knee Prostate nodule Microscopic hematuria Bladder outlet obstruction Pes anserinus bursitis of right knee Effusion, right knee Ventricular tachycardia Ischemic cardiomyopathy Atherosclerotic cardiovascular disease Cardiomyopathy Pacemaker ILD (interstitial lung disease) Pulmonary nodules COPD (chronic obstructive pulmonary disease) Bursitis of right shoulder Medial meniscus tear Osteoarthritis of right knee Family History Family History Father No problems noted. Mother No problems noted. Son No problems noted. Surgical History Surgical History History of carpal tunnel release History of cholecystectomy History of tonsillectomy History of colonoscopy Social History Social History Household Members: Spouse Housing: [facility] Do you presently have visiting nurse or other home services: No Alcohol intake: current Alcohol intake frequency: does not drink Alcohol type: beer Comment: once Q 3-6 month glass of wine Patient Tobacco Use Status: Former Tobacco user Tobacco use type: Cigarette Years Smoked: 30 years Advance Directives Date on File: 06/24/23 service: No Current occupational status: retired 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 Cognitive needs: No Hearing needs: Yes Vision needs: Yes Meds Allergies Allergy/AdvReac Type Severity Reaction Status Date / Time No Known Allergies Allergy Verified 04/14/24 07:16 [No Known Allergies*] Active Medications: Current Medications Acetaminophen (Acetaminophen 325 Mg Tablet) 650 mg PO Q6H PRN PRN Reason: Pain, Mild (Pain Scale 1-3), fever or headache Calcium Carbonate (Calcium Carbonate 750 Mg Tab.Chew) 750 mg PO Q4H PRN PRN Reason: Heartburn Enoxaparin Sodium (Enoxaparin Sodium 40 Mg/0.4 Ml Syringe) 40 mg SUBCUT Q24H [facility] Last Admin: 04/14/24 12:44 Dose: 40 mg Magnesium Hydroxide (Milk Of Magnesia 30 Ml Oral.Susp) 30 ml PO DAILY PRN PRN Reason: Constipation Melatonin (Melatonin 3 Mg Tablet) 6 mg PO BEDTIME PRN PRN Reason: Insomnia Ondansetron HCl (Ondansetron Hcl 4 Mg/2 Ml Vial) 4 mg IVPUSH Q8H PRN PRN Reason: Nausea and Vomiting Sodium Chloride (0.9 % Sodium Chloride Flush 3 Ml Syringe) 3 ml IVFLUSH QSHIFT [facility] Home Medications ?Medication ?Instructions ?Recorded ?Confirmed ?Last Taken ?Type aspirin 81 mg tablet,delayed 81 mg PO DAILY 08/18/20 04/14/24 04/13/24 History release alendronate 70 mg tablet 70 mg PO FR 04/14/24 04/14/24 04/11/24 History fluticasone propionate 50 2 spray intranasal DAILY PRN 04/14/24 04/14/24 04/13/24 History mcg/actuation nasal Allergy Symptoms spray,suspension Physical Exam 2 Vital Signs: Vital Signs: Last Vital Signs Temp 97.4 F 04/14/24 17:15 Pulse 76 04/14/24 17:15 Resp 18 04/14/24 17:15 BP 150/69 H 04/14/24 17:15 Pulse Ox 94 04/14/24 17:15 O2 Del Method Room Air 04/14/24 17:15 BMI result Body Mass Index 27.3 EXAM: GENERAL: The patient is relaxed, frail, bruise VITAL SIGNS:see workflow HEENT: Nonicteric sclerae, PERRLA, EOMI. Oropharynx clear. Moist mucous membranes. Conjunctivae appear well perfused. No thyroid mass. CHEST: Chest wall is nontender. HEART: Regular rate and rhythm without murmurs. LUNGS: Clear to auscultation bilaterally. ABDOMEN: Soft, positive bowel sounds, nontender, no organomegaly.no flank tenderness SKIN: No rash, NO petechiae, or purpura. NEUROLOGIC: Cranial nerves II-XII intact without motor/sensory deficit. Psych: normal affect Results Labs 04/14/24 07:33 04/14/24 07:33 Labs: Short CBC 04/14/24 Range/Units 07:33 WBC 10.9 H (4.8-10.8) X10*3/uL Hgb 13.9 L (14.0-18.0) g/dl Hct 38.2 L (42.0-52.0) % Plt Count 199 (160-400) X10*3/uL BMP 04/14/24 07:33 Sodium 131 L Potassium 4.8 Chloride 99 Carbon Dioxide 24 BUN 12 Creatinine 0.89 Calcium 8.9 Liver Function 04/14/24 Range/Units 07:33 Total Bilirubin 0.8 (0.0-1.0) mg/dL AST 18 (5-37) U/L ALT 20 (0-40) U/L Alkaline Phosphatase 58 (39-117) U/L Albumin 3.8 (3.5-5.0) g/dL Urine 04/14/24 Range/Units 10:13 Urine Color Yellow Urine Appearance Clear Urine pH 7.0 (5.0-9.0) Ur Specific [place] >= 1.030 H (1.005-1.025) Urine Protein Negative (Neg-Trace) mg/dL Urine Glucose (UA) Negative (Negative) mg/dL Imaging CT scan - abdomen: Attestation: I personally reviewed and interpreted this imaging study as follows: (mass lesion at splenic flexure) Assessment and Plan (1) Colonic mass: Status: Acute Plan 1/ Colonic mass on imaging, noted after Ix for syncope. concern for CRC PLAN: 1/ Await cardiac assessment, provisonally on schedule for colonocopy Wed --can have clears tomorrow and bowel prep --ok to eat normally today Procedures Date of Service Date of Service: 04/14/24
[2024-04-14] MEDS: 0.9 % Sodium Chloride Flush 3 ML SYRINGE IVFLUSH ×2 (18:28→20:02)
[2024-04-14] MEDS: Montelukast Sodium 10 MG TABLET PO (20:01)
[2024-04-14] MEDS: Atorvastatin Calcium 40 MG TABLET PO (20:01)
[2024-04-14] MEDS: Tamsulosin HCL 0.4 MG CAPSULE PO (20:01)
[2024-04-14] MEDS: Sacubitril/Valsartan 49/51 1 TAB TABLET PO (20:01)
[2024-04-15] VITALS (7 sets, daily range): BP systolic 102–171; BP diastolic 58–77; PULSE 77–88; RESP 15–20; TEMP 36.2–37; O2SAT 90–96
[2024-04-15 06:45] LABS: MANUAL DIFF FLAG NO
[2024-04-15 06:52] LABS: Basophils Percent Auto 0.4 % (0-2); Eosinophils Absolute Auto 0.2 X10*3/uL (0.0-0.4); Hematocrit 40.4 % (42.0-52.0); Hemoglobin 14.2 g/dl (14.0-18.0); Imm Gran Abs Auto 0.04 X10*3/uL (0.00-0.03); Imm Gran Pct Auto 0.5 % (0.0-0.4); Lymphocytes Absolute Auto 1.6 X10*3/uL (1.2-4.9); Lymphocytes Percent Auto 20.4 % (20-40); Mean Corpuscular HGB Conc 35.1 g/dl (31.0-36.0); Mean Corpuscular Hemoglobin 34.1 pg (27.0-33.0); Mean Corpuscular Volume 96.9 fL (80.0-98.0); Mean Platelet Volume 8.9 fL (9.4-12.4); Monocytes Absolute Auto 0.8 X10*3/uL (0.1-1.2); Monocytes Percent Auto 9.4 % (2-11); Neutrophils Absolute Auto 5.4 x10*3/uL (2.0-8.3); Neutrophils Percent Auto 67.3 % (45-73); Platelet Count 219 X10*3/uL (160-400); Red Blood Count 4.17 X10*6/uL (4.60-5.80); Red Cell Distribution Width 13.2 % (11.0-16.0)
[2024-04-15 07:03] LABS: Alanine Aminotransferase 20 U/L (0-40); Albumin Level 4.2 g/dL (3.5-5.0); Alkaline Phosphatase 65 U/L (39-117); Anion Gap 12 (12-20); Aspartate Amino Transferase 18 U/L (5-37); Bilirubin Total 1.2 mg/dL (0.0-1.0); Blood Urea Nitrogen 13 mg/dL (9-16); Calcium 9.2 mg/dL (8.4-10.2); Carbon Dioxide 25 mmol/L (22-29); Chloride 99 mmol/L (96-108); Creatinine Clr Calc Pharmacy 63.4; Estimated Glomerular Filt Rate > 60; Glucose Fasting 125 mg/dL (60-99); Potassium 4.4 mmol/L (3.3-5.1); Sodium 132 mmol/L (135-145); Total Protein 7.2 g/dL (6.5-8.0)
[2024-04-15] MEDS: Cholecalciferol (Vitamin D3) 25 MCG TABLET PO (09:32)
[2024-04-15] MEDS: allopurinoL 100 MG TABLET PO (09:33)
[2024-04-15] MEDS: Sacubitril/Valsartan 49/51 1 TAB TABLET PO ×2 (09:33→20:19)
[2024-04-15] MEDS: 0.9 % Sodium Chloride Flush 3 ML SYRINGE IVFLUSH ×3 (09:34→20:21)
[2024-04-15] MEDS: Fluticasone/Umeclidinium/Vilanterol 200/62.5/25 BLST.W.DEV 1 PUFF INHALE (10:01)
--- NOTE | 2024-04-15 10:48 | MHC.CM.PN ---
IMM 04/15. Pt self-care, lives at home with his of 56 years. Pt states his and son are his HCP's, copy requested. Pts son or will transport him home at discharge. PCP: Dr. Dee Po
[2024-04-15] MEDS: Enoxaparin Sodium 40 MG/0.4 ML SYRINGE SUBCUT (11:03)
--- NOTE | 2024-04-15 13:08 | P.PNCA_ITS ---
Subjective Subjective Date of Service: 04/15/24 Interval history: Seen examined at bedside. He was diagnosed with colonic mass and will be undergoing endoscopy soon. Physical Exam Vital Signs: Last Vital Signs Temp 97.8 F 04/15/24 11:10 Pulse 88 04/15/24 11:10 Resp 20 04/15/24 11:10 BP 130/61 04/15/24 11:10 Pulse Ox 92 04/15/24 11:10 O2 Del Method Room Air 04/15/24 11:10 BMI result Body Mass Index 27.3 GENERAL APPEARANCE: in no acute distress, pleasant. NECK: no carotid bruit, no jugular venous distention. SKIN: Left forehead dressed. Left cheek has bruise. HEART: no murmurs, regular rate and rhythm. LUNGS: clear to auscultation bilaterally. ABDOMEN: soft, nontender. EXTREMITIES: no edema. PERIPHERAL PULSES: equal. NEUROLOGIC: No gross deficits, AAO X 3 Objective Labs and Meds 04/15/24 06:38 04/15/24 06:38 Lab results: Laboratory Results - last 24 hr 04/15/24 06:38 WBC 8.0 RBC 4.17 L Hgb 14.2 Hct 40.4 L MCV 96.9 MCH 34.1 H MCHC 35.1 RDW 13.2 Plt Count 219 MPV 8.9 L Immature Gran % (Auto) 0.5 H Neut % (Auto) 67.3 Lymph % (Auto) 20.4 [place] % (Auto) 9.4 Eos % (Auto) 2.0 Baso % (Auto) 0.4 Lymph # (Auto) 1.6 [place] # (Auto) 0.8 Eos # (Auto) 0.2 Baso # (Auto) 0.0 Abs Immat Gran (auto) 0.04 H Absolute Neuts (auto) 5.4 Absolute Nucleated RBC 0.000 Nucleated RBC % (auto) 0.0 Sodium 132 L Potassium 4.4 Chloride 99 Carbon Dioxide 25 Anion Gap 12 BUN 13 Creatinine 0.86 Estim Creat Clear Calc 63.4 Estimated GFR > 60 Fasting Glucose 125 H Calcium 9.2 Total Bilirubin 1.2 H AST 18 ALT 20 Alkaline Phosphatase 65 Total Protein 7.2 Albumin 4.2 Progress Note: A&P Assessment and plan (1) Colonic mass: Status: Acute (2) Syncope: Status: Acute Plan Pleasant 83 year gentleman presenting with syncope. Etiology is likely vasovagal syncope-he had GI upset followed by dizziness and then syncope. Device interrogation has not shown any arrhythmia. He also has no significant issues on telemetry. I will review echocardiography today. He is intermediate risk for colonoscopy and can proceed. He is currently off aspirin and Plavix. As he gets the colonoscopy and biopsy we can discuss whether we should resume his antiplatelet therapy. Thank you for allowing me to participate in the care of your patient. Please feel free to contact me if you have any questions. Time Spent With Patient Time: Total time managing care of this patient today ____ minutes. Progress Note: Quality Stroke Does the patient have a stroke diagnosis?: No Procedures Date of Service Date of Service: 04/15/24
[2024-04-15] MEDS: PEG 3350/Na Sulf,Bicarb,Cl/KCL 4,000 ML SOLN.RECON 4000 ML PO (15:17)
--- NOTE | 2024-04-15 15:21 | HO.PM.IMPN ---
Subjective Subjective Date of Service: 04/15/24 Interval History: Doing well overnight. No further episodes Review of Systems Denies chest pain Denies shortness of breath Denies nausea vomiting diarrhea Admits to crampy abdominal pain Denies fever chills Physical Exam Vital Signs: Vital Signs: Last Vital Signs Temp 97.8 F 04/15/24 11:10 Pulse 88 04/15/24 11:10 Resp 20 04/15/24 11:10 BP 130/61 04/15/24 11:10 Pulse Ox 92 04/15/24 11:10 O2 Del Method Room Air 04/15/24 11:10 BMI result Body Mass Index 27.3 Const: Other: Awake alert no acute distress HEENT: Other: Small laceration above left eye repaired in ER. Contusion low left orbital rim Resp: Other: End inspiratory crackles heard bilateral bases (consistent with interstitial lung disease). No rales rhonchi or wheezes Cardio: Other: No S4; positive S1-S2; no S3 murmurs rubs or gallops GI: Other: Soft nontender nondistended normoactive bowel sounds Neuro: Other: Cranial nerves 2-12 grossly intact as tested. Motor is 5/5 all extremities. Sensation is intact. Gait not observed. Cognition appropriate Extrem: Other: No edema bilaterally Objective Data Active Medications Acetaminophen (Acetaminophen 325 Mg Tablet) 650 mg PO Q6H PRN PRN Reason: Pain, Mild (Pain Scale 1-3), fever or headache Allopurinol (Allopurinol 100 Mg Tablet) 100 mg PO DAILY [facility] Last Admin: 04/15/24 09:33 Dose: 100 mg Documented By: LISA Atorvastatin Calcium (Atorvastatin Calcium 40 Mg Tablet) 40 mg PO BEDTIME [facility] Last Admin: 04/14/24 20:01 Dose: 40 mg Documented By: NEVA Calcium Carbonate (Calcium Carbonate 750 Mg Tab.Chew) 750 mg PO Q4H PRN PRN Reason: Heartburn Enoxaparin Sodium (Enoxaparin Sodium 40 Mg/0.4 Ml Syringe) 40 mg SUBCUT Q24H [facility] Last Admin: 04/15/24 11:03 Dose: 40 mg Documented By: LISA Fluticasone/Umeclidinium/Vilanterol (Fluticasone/Umeclidinium/Vilanterol 200/62.5/25 Blst.W.Dev) 1 puff INHALE DAILY [facility] Last Admin: 04/15/24 10:01 Dose: 1 puff Documented By: AGUEDA Magnesium Hydroxide (Milk Of Magnesia 30 Ml Oral.Susp) 30 ml PO DAILY PRN PRN Reason: Constipation Melatonin (Melatonin 3 Mg Tablet) 6 mg PO BEDTIME PRN PRN Reason: Insomnia Montelukast Sodium (Montelukast Sodium 10 Mg Tablet) 10 mg PO BEDTIME [facility] Last Admin: 04/14/24 20:01 Dose: 10 mg Documented By: NEVA Ondansetron HCl (Ondansetron Hcl 4 Mg/2 Ml Vial) 4 mg IVPUSH Q8H PRN PRN Reason: Nausea and Vomiting Sacubitril/Valsartan (Sacubitril/Valsartan 49/51 1 Tab Tablet) 1 tab PO BID [facility]; Protocol Last Admin: 04/15/24 09:33 Dose: 1 tab Documented By: LISA Sodium Chloride (0.9 % Sodium Chloride Flush 3 Ml Syringe) 3 ml IVFLUSH QSHIFT [facility] Last Admin: 04/15/24 15:18 Dose: 3 ml Documented By: LISA Tamsulosin HCl (Tamsulosin Hcl 0.4 Mg Capsule) 0.4 mg PO BEDTIME [facility] Last Admin: 04/14/24 20:01 Dose: 0.4 mg Documented By: NEVA Vitamin D (Cholecalciferol (Vitamin D3) 25 Mcg Tablet) 25 mcg PO DAILY [facility] Last Admin: 04/15/24 09:32 Dose: 25 mcg Documented By: LISA Labs 04/15/24 06:38 04/15/24 06:38 Labs: Laboratory Results - last 24 hr 04/15/24 06:38 MCV 96.9 MCH 34.1 H MCHC 35.1 RDW 13.2 Plt Count 219 MPV 8.9 L Immature Gran % (Auto) 0.5 H Neut % (Auto) 67.3 Lymph % (Auto) 20.4 [place] % (Auto) 9.4 Eos % (Auto) 2.0 Baso % (Auto) 0.4 Lymph # (Auto) 1.6 [place] # (Auto) 0.8 Eos # (Auto) 0.2 Baso # (Auto) 0.0 Abs Immat Gran (auto) 0.04 H Absolute Neuts (auto) 5.4 Absolute Nucleated RBC 0.000 Nucleated RBC % (auto) 0.0 Anion Gap 12 Estim Creat Clear Calc 63.4 Estimated GFR > 60 Fasting Glucose 125 H Calcium 9.2 Total Bilirubin 1.2 H AST 18 ALT 20 Alkaline Phosphatase 65 Total Protein 7.2 Albumin 4.2 Assessment and Plan (1) Syncope: Status: Acute Plan 83-year-old male with past medical history significant for V-tach with AICD followed by Dr. Flaherty, hypertension, ischemic cardiomyopathy, CVA, interstitial lung disease, PMR. Brought in by ambulance after an unwitnessed fall. Workup in emergency room including CTA of head/chest/abdomen/pelvis failed to demonstrate any pathology that would be responsible for admitting complaint. New small transverse colon mass incidentally found on abdomen CT 1. Syncope (in backdrop of ischemic cardiomyopathy with history of V-tach requiring AICD) -admit to telemetry; cardiology consult -2D echo -pacer interrogation as per Cardiology 2. Hypertension -acceptable control on current therapies -adjust as indicated 3. History of V tach arrest -continue amiodarone 4. COPD/I LD -stable and well compensated -adjust therapies as clinically indicated 5. Colonic mass (transverse colon) -unknown last colonoscopy -clear liquids today along with GoLYTELY prep -colonoscopy tomorrow Full code Lovenox Patient requires ongoing hospitalization to complete colon prep pending colonoscopy in a.m. Quality Stroke Does the patient have a stroke diagnosis?: No VTE Prior VTE?: No VTE Risk Level:: Medical - moderate - high VTE Device Contraindication: Treatment Not Indicated VTE Drug Contraindication: N/A - Med Ordered
[2024-04-15] MEDS: Atorvastatin Calcium 40 MG TABLET PO (20:19)
[2024-04-15] MEDS: Montelukast Sodium 10 MG TABLET PO (20:19)
[2024-04-15] MEDS: Tamsulosin HCL 0.4 MG CAPSULE PO (20:20)
[2024-04-16] VITALS (12 sets, daily range): BP systolic 100–158; BP diastolic 48–68; PULSE 70–92; RESP 16–20; TEMP 36–36.9; O2SAT 90–97; BMI 27.3
[2024-04-16] MEDS: Magnesium Sulfate/H2O 2 GM/50 ML PIGGYBACK IV (02:30)
--- NOTE | 2024-04-16 06:31 | PC.NURSE ---
Per nursing report, Alaina Gonzalez RN, pt alert and oriented, NPO since midnoc. Patent IV, prep results liquid, leiva and clear. Last dose of Lovenox 11:03 am on 04/15/24. Pt had 2 (8-9 beat) episodes of wide Vtach at 0129, given Mag sulfate gram 2 IV. Pacemaker, current rhythm NSR, first degree w/ occas paced beat.
[2024-04-16] MEDS: Fluticasone/Umeclidinium/Vilanterol 200/62.5/25 BLST.W.DEV 1 PUFF INHALE (07:36)
[2024-04-16] MEDS: Sacubitril/Valsartan 49/51 1 TAB TABLET PO ×2 (07:44→21:52)
[2024-04-16] MEDS: allopurinoL 100 MG TABLET PO (07:45)
[2024-04-16] MEDS: 0.9 % Sodium Chloride Flush 3 ML SYRINGE IVFLUSH ×2 (07:45→23:58)
[2024-04-16] MEDS: Cholecalciferol (Vitamin D3) 25 MCG TABLET PO (07:47)
[2024-04-16 09:07] LABS: MANUAL DIFF FLAG NO
[2024-04-16 09:11] LABS: Basophils Percent Auto 0.5 % (0-2); Eosinophils Absolute Auto 0.2 X10*3/uL (0.0-0.4); Eosinophils Percent Auto 3.1 % (0-4); Hematocrit 35.8 % (42.0-52.0); Imm Gran Abs Auto 0.03 X10*3/uL (0.00-0.03); Imm Gran Pct Auto 0.5 % (0.0-0.4); Lymphocytes Absolute Auto 1.1 X10*3/uL (1.2-4.9); Lymphocytes Percent Auto 18.2 % (20-40); Mean Corpuscular HGB Conc 36.3 g/dl (31.0-36.0); Mean Corpuscular Hemoglobin 34.3 pg (27.0-33.0); Mean Corpuscular Volume 94.5 fL (80.0-98.0); Mean Platelet Volume 9.2 fL (9.4-12.4); Monocytes Absolute Auto 0.6 X10*3/uL (0.1-1.2); Monocytes Percent Auto 10.6 % (2-11); Neutrophils Absolute Auto 3.9 x10*3/uL (2.0-8.3); Neutrophils Percent Auto 67.1 % (45-73); Platelet Count 174 X10*3/uL (160-400); Red Blood Count 3.79 X10*6/uL (4.60-5.80); Red Cell Distribution Width 13.2 % (11.0-16.0); White Blood Count 5.8 X10*3/uL (4.8-10.8)
[2024-04-16 09:45] LABS: Alanine Aminotransferase 23 U/L (0-40); Albumin Level 3.6 g/dL (3.5-5.0); Alkaline Phosphatase 59 U/L (39-117); Anion Gap 11 (12-20); Aspartate Amino Transferase 20 U/L (5-37); Bilirubin Total 1.1 mg/dL (0.0-1.0); Blood Urea Nitrogen 8 mg/dL (9-16); Calcium 8.3 mg/dL (8.4-10.2); Carbon Dioxide 26 mmol/L (22-29); Chloride 98 mmol/L (96-108); Creatinine Clr Calc Pharmacy 72.7; Estimated Glomerular Filt Rate > 60; Glucose Fasting 129 mg/dL (60-99); Potassium 3.4 mmol/L (3.3-5.1); Sodium 132 mmol/L (135-145); Total Protein 6.2 g/dL (6.5-8.0)
--- NOTE | 2024-04-16 11:04 | PM.PNCARD ---
Subjective Subjective Date of Service: 04/16/24 Interval history: Seen examined at bedside. Clinically stable. He had nonsustained VT overnight which was few beats. Physical Exam Vital Signs: Last Vital Signs Temp 96.8 F 04/16/24 07:18 Pulse 82 04/16/24 07:36 Resp 18 04/16/24 07:36 BP 158/67 H 04/16/24 07:18 Pulse Ox 93 04/16/24 07:18 O2 Del Method Room Air 04/16/24 07:18 BMI result Body Mass Index 27.3 GENERAL APPEARANCE: in no acute distress, pleasant. NECK: no carotid bruit, no jugular venous distention. SKIN: Left forehead dressed. Left cheek has bruise. HEART: no murmurs, regular rate and rhythm. LUNGS: clear to auscultation bilaterally. ABDOMEN: soft, nontender. EXTREMITIES: no edema. PERIPHERAL PULSES: equal. NEUROLOGIC: No gross deficits, AAO X 3 Objective Labs and Meds 04/16/24 08:39 04/16/24 08:39 Lab results: Laboratory Results - last 24 hr 04/16/24 08:39 WBC 5.8 RBC 3.79 L Hgb 13.0 L Hct 35.8 L MCV 94.5 MCH 34.3 H MCHC 36.3 H RDW 13.2 Plt Count 174 MPV 9.2 L Immature Gran % (Auto) 0.5 H Neut % (Auto) 67.1 Lymph % (Auto) 18.2 L [place] % (Auto) 10.6 Eos % (Auto) 3.1 Baso % (Auto) 0.5 Lymph # (Auto) 1.1 L [place] # (Auto) 0.6 Eos # (Auto) 0.2 Baso # (Auto) 0.0 Abs Immat Gran (auto) 0.03 Absolute Neuts (auto) 3.9 Absolute Nucleated RBC 0.000 Nucleated RBC % (auto) 0.0 Sodium 132 L Potassium 3.4 D Chloride 98 Carbon Dioxide 26 Anion Gap 11 L BUN 8 L Creatinine 0.75 Estim Creat Clear Calc 72.7 Estimated GFR > 60 Fasting Glucose 129 H Calcium 8.3 L D Total Bilirubin 1.1 H AST 20 ALT 23 Alkaline Phosphatase 59 Total Protein 6.2 L Albumin 3.6 Progress Note: A&P Assessment and plan (1) Colonic mass: Status: Acute (2) Syncope: Status: Acute Plan Pleasant 83 year gentleman presenting with syncope. Etiology is likely vasovagal syncope-he had GI upset followed by dizziness and then syncope. Device interrogation has not shown any arrhythmia. He also has no significant issues on telemetry. ECHO showing low normal ejection fraction with apical wall motion underwent he has before. CTA abdomen showed colonic mass and he is due to get endoscopy today. He had short runs of nonsustained VT likely due to electrolyte disturbance related to colonoscopy prep. Overall he is intermediate risk for perioperative complications. As he gets the colonoscopy and biopsy we can discuss whether we should resume his antiplatelet therapy. Thank you for allowing me to participate in the care of your patient. Please feel free to contact me if you have any questions. Time Spent With Patient Time: Total time managing care of this patient today ____ minutes. Progress Note: Quality Stroke Does the patient have a stroke diagnosis?: No Procedures Date of Service Date of Service: 04/16/24
--- NOTE | 2024-04-16 14:10 | P.PNIM_ITS ---
Subjective Subjective Date of Service: 04/16/24 Interval History: Six beat run of VT overnight; patient asymptomatic. Received magnesium IV Review of Systems Denies chest pain Denies shortness of breath Denies nausea vomiting diarrhea Admits to crampy abdominal pain Denies fever chills Physical Exam 2 Vital Signs: Vital Signs: Last Vital Signs Temp 97.2 F 04/16/24 11:03 Pulse 84 04/16/24 11:03 Resp 16 04/16/24 11:03 BP 149/68 H 04/16/24 11:03 Pulse Ox 93 04/16/24 11:03 O2 Del Method Room Air 04/16/24 11:03 BMI result Body Mass Index 27.3 Const: Other: Awake alert no acute distress HEENT: Other: Small laceration above left eye repaired in ER. Contusion low left orbital rim Resp: Other: End inspiratory crackles heard bilateral bases (consistent with interstitial lung disease). No rales rhonchi or wheezes Cardio: Other: No S4; positive S1-S2; no S3 murmurs rubs or gallops GI: Other: Soft nontender nondistended normoactive bowel sounds Neuro: Other: Cranial nerves 2-12 grossly intact as tested. Motor is 5/5 all extremities. Sensation is intact. Gait not observed. Cognition appropriate Extrem: Other: No edema bilaterally Objective Data Active Medications Acetaminophen (Acetaminophen 325 Mg Tablet) 650 mg PO Q6H PRN PRN Reason: Pain, Mild (Pain Scale 1-3), fever or headache Allopurinol (Allopurinol 100 Mg Tablet) 100 mg PO DAILY [facility] Last Admin: 04/16/24 07:45 Dose: 100 mg Documented By: MORALES Atorvastatin Calcium (Atorvastatin Calcium 40 Mg Tablet) 40 mg PO BEDTIME [facility] Last Admin: 04/15/24 20:19 Dose: 40 mg Documented By: JAME Calcium Carbonate (Calcium Carbonate 750 Mg Tab.Chew) 750 mg PO Q4H PRN PRN Reason: Heartburn Enoxaparin Sodium (Enoxaparin Sodium 40 Mg/0.4 Ml Syringe) 40 mg SUBCUT Q24H [facility] Last Admin: 04/16/24 11:08 Dose: Not Given Documented By: MORALES Non-Admin Reason: per dr parsons, restart 04/17/24 Fluticasone/Umeclidinium/Vilanterol (Fluticasone/Umeclidinium/Vilanterol 200/62.5/25 Blst.W.Dev) 1 puff INHALE DAILY [facility] Last Admin: 04/16/24 07:36 Dose: 1 puff Documented By: DAVID Magnesium Hydroxide (Milk Of Magnesia 30 Ml Oral.Susp) 30 ml PO DAILY PRN PRN Reason: Constipation Melatonin (Melatonin 3 Mg Tablet) 6 mg PO BEDTIME PRN PRN Reason: Insomnia Montelukast Sodium (Montelukast Sodium 10 Mg Tablet) 10 mg PO BEDTIME [facility] Last Admin: 04/15/24 20:19 Dose: 10 mg Documented By: JAME Ondansetron HCl (Ondansetron Hcl 4 Mg/2 Ml Vial) 4 mg IVPUSH Q8H PRN PRN Reason: Nausea and Vomiting Sacubitril/Valsartan (Sacubitril/Valsartan 49/51 1 Tab Tablet) 1 tab PO BID [facility]; Protocol Last Admin: 04/16/24 07:44 Dose: 1 tab Documented By: MORALES Sodium Chloride (0.9 % Sodium Chloride Flush 3 Ml Syringe) 3 ml IVFLUSH QSHIFT [facility] Last Admin: 04/16/24 07:45 Dose: 3 ml Documented By: MORALES Tamsulosin HCl (Tamsulosin Hcl 0.4 Mg Capsule) 0.4 mg PO BEDTIME [facility] Last Admin: 04/15/24 20:20 Dose: 0.4 mg Documented By: JAME Vitamin D (Cholecalciferol (Vitamin D3) 25 Mcg Tablet) 25 mcg PO DAILY [facility] Last Admin: 04/16/24 07:47 Dose: 25 mcg Documented By: MORALES Labs 04/16/24 08:39 04/16/24 08:39 Labs: Laboratory Results - last 24 hr 04/16/24 08:39 MCV 94.5 MCH 34.3 H MCHC 36.3 H RDW 13.2 Plt Count 174 MPV 9.2 L Immature Gran % (Auto) 0.5 H Neut % (Auto) 67.1 Lymph % (Auto) 18.2 L [place] % (Auto) 10.6 Eos % (Auto) 3.1 Baso % (Auto) 0.5 Lymph # (Auto) 1.1 L [place] # (Auto) 0.6 Eos # (Auto) 0.2 Baso # (Auto) 0.0 Abs Immat Gran (auto) 0.03 Absolute Neuts (auto) 3.9 Absolute Nucleated RBC 0.000 Nucleated RBC % (auto) 0.0 Anion Gap 11 L Estim Creat Clear Calc 72.7 Estimated GFR > 60 Fasting Glucose 129 H Calcium 8.3 L D Total Bilirubin 1.1 H AST 20 ALT 23 Alkaline Phosphatase 59 Total Protein 6.2 L Albumin 3.6 Assessment and Plan (1) Syncope: Status: Acute (2) Colonic mass: Status: Acute Plan 83-year-old male with past medical history significant for V-tach with AICD followed by Dr. Flaherty, hypertension, ischemic cardiomyopathy, CVA, interstitial lung disease, PMR. Brought in by ambulance after an unwitnessed fall. Workup in emergency room including CTA of head/chest/abdomen/pelvis failed to demonstrate any pathology that would be responsible for admitting complaint. New small transverse colon mass incidentally found on abdomen CT 1. Syncope .. Six beat VT overnight -asymptomatic; no further episodes -2D echo... LVEF 50-55% -pacer interrogation without acute finding -discuss with Cardiology. . . Still medically acceptable for colonoscopy 2. Hypertension -acceptable control on current therapies -adjust as indicated 3. History of V tach arrest -continue amiodarone 4. COPD/I LD -stable and well compensated -adjust therapies as clinically indicated 5. Colonic mass (transverse colon) -unknown last colonoscopy -clear liquids today along with GoLYTELY prep -colonoscopy tomorrow 6. Hyponatremia -chronic; at baseline -follow renals/divalents Full code Lovenox Patient requires ongoing hospitalization to complete colon prep pending colonoscopy in a.m. Quality Stroke Does the patient have a stroke diagnosis?: No VTE Prior VTE?: No VTE Risk Level:: Medical - moderate - high VTE Device Contraindication: Treatment Not Indicated VTE Drug Contraindication: N/A - Med Ordered
--- NOTE | 2024-04-16 14:22 | MHC.CM.PN ---
EMR reviewed and per MD rounds, pt is not medically cleared for discharge with colonoscopy pending tomorrow am.
--- NOTE | 2024-04-16 14:35 | P.PNGI_ITS ---
Subjective Subjective Date of Service: 04/16/24 Interval History: no abdo pain no rectal bleeding feels well and denies chest pain or further syncope few beats of non sustained Vt, was given extra Mag overnight Critical Care Time (minutes): 0 Physical Exam 2 Vital Signs: Vital Signs: Last Vital Signs Temp 97.2 F 04/16/24 11:03 Pulse 84 04/16/24 11:03 Resp 16 04/16/24 11:03 BP 149/68 H 04/16/24 11:03 Pulse Ox 93 04/16/24 11:03 O2 Del Method Room Air 04/16/24 11:03 BMI result Body Mass Index 27.3 EXAM: GENERAL: The patient is well developed and nontoxic. VITAL SIGNS:see workflow HEENT: Nonicteric sclerae, PERRLA, EOMI. Oropharynx clear. Moist mucous membranes. Conjunctivae appear well perfused. No thyroid mass. CHEST: Chest wall is nontender. HEART: Regular rate and rhythm without murmurs. LUNGS: Clear to auscultation bilaterally. ABDOMEN: Soft, positive bowel sounds, nontender, no organomegaly.no flank tenderness SKIN: bruise left cheek with suture close to the area NEUROLOGIC: Cranial nerves II-XII intact without motor/sensory deficit. Psych: normal affect Objective Data Labs 04/16/24 08:39 04/16/24 08:39 Labs: Laboratory Results - last 24 hr 04/16/24 08:39 WBC 5.8 RBC 3.79 L Hgb 13.0 L Hct 35.8 L MCV 94.5 MCH 34.3 H MCHC 36.3 H RDW 13.2 Plt Count 174 MPV 9.2 L Immature Gran % (Auto) 0.5 H Neut % (Auto) 67.1 Lymph % (Auto) 18.2 L [place] % (Auto) 10.6 Eos % (Auto) 3.1 Baso % (Auto) 0.5 Lymph # (Auto) 1.1 L [place] # (Auto) 0.6 Eos # (Auto) 0.2 Baso # (Auto) 0.0 Abs Immat Gran (auto) 0.03 Absolute Neuts (auto) 3.9 Absolute Nucleated RBC 0.000 Nucleated RBC % (auto) 0.0 Sodium 132 L Potassium 3.4 D Chloride 98 Carbon Dioxide 26 Anion Gap 11 L BUN 8 L Creatinine 0.75 Estim Creat Clear Calc 72.7 Estimated GFR > 60 Fasting Glucose 129 H Calcium 8.3 L D Total Bilirubin 1.1 H AST 20 ALT 23 Alkaline Phosphatase 59 Total Protein 6.2 L Albumin 3.6 Procedures Date of Service Date of Service: 04/16/24 Progress Note: A&P Assessment and plan (1) Colonic mass: Status: Acute Plan 1/ colonic mass, concern for CRC, but no GI sx, HGb has been stable, NSVT overnight but no sx or chest pain, cardiology assessment with moderate risk for colonoscopy PLAN: 1/ colonoscopy today for further assessement Time Spent With Patient Time: Total time managing care of this patient today ____ minutes. Quality Stroke Does the patient have a stroke diagnosis?: No VTE Prior VTE?: No VTE Risk Level:: Medical - moderate - high VTE Device Contraindication: Treatment Not Indicated VTE Drug Contraindication: N/A - Med Ordered
--- NOTE | 2024-04-16 14:38 | MHC.SHP ---
Pre-Procedural Eval Section A - 24 Hr Update-Section A only Date of Service: 04/16/24 The patient is an INPATIENT: Yes The patient has been examined within 24 hours of the surgical procedure. The History & Physical has been completed within 30 days and I have reviewed it.: Yes Section B - Complete if H&P > 30 days Chief Complaint: syncope Allergies: Allergies Allergy/AdvReac Type Severity Reaction Status Date / Time No Known Allergies Allergy Verified 04/14/24 07:16 [No Known Allergies*] Plan Diagnosis/Plan: Unchanged I have reviewed the history and physical and performed a pertinent physical examination on my patient. No changes have occurred unless specified. Time Spent With Patient Time: Total time managing care of this patient today ____ minutes.
[2024-04-16 14:46] LABS: Magnesium 2.4 mg/dL (1.6-2.6)
--- NOTE | 2024-04-16 15:16 | HO.ANESPROP2 ---
[facility] Active Problems Active Problems: All Active Problems Colonic mass (Acute) Acute hyponatremia (Acute) Syncope (Acute) ICD (implantable cardioverter-defibrillator) in place (Acute) Fatigue (Acute) Allergies (Acute) Sinusitis (Acute) Hot flashes related to aromatase inhibitor therapy (Acute) Cough (Acute) Atypical fibroxanthoma (Acute) Impaired glucose tolerance (Acute) Hypercholesterolemia (Acute) Hypertension (Acute) Ventricular tachycardia (Acute) Ischemic cardiomyopathy (Acute) Atherosclerotic cardiovascular disease (Acute) CVA (cerebral vascular accident) (Acute) Presence of implantable cardioverter-defibrillator (ICD) (Acute) Osteopenia (Acute) Contusion of hand, left (Acute) ILD (interstitial lung disease) (Acute) Prostate cancer (Acute) 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) MCC systemic steroid user (Acute) Polymyalgia rheumatica (Acute) Pulmonary nodules (Acute) COPD (chronic obstructive pulmonary disease) (Acute) Bursitis of right shoulder (Acute) Medial meniscus tear (Acute) Osteoarthritis of right knee (Acute) Past Medical History Medical History Allergies Dental abscess Dysphagia Elevated PSA Abrasion Bursitis of left shoulder Joint pain Effusion, left knee Prostate nodule Microscopic hematuria Bladder outlet obstruction Pes anserinus bursitis of right knee Effusion, right knee Ventricular tachycardia Ischemic cardiomyopathy Atherosclerotic cardiovascular disease Cardiomyopathy Pacemaker ILD (interstitial lung disease) Pulmonary nodules COPD (chronic obstructive pulmonary disease) Bursitis of right shoulder Medial meniscus tear Osteoarthritis of right knee Family History Family History Father No problems noted. Mother No problems noted. Son No problems noted. Surgical History Surgical History History of carpal tunnel release History of cholecystectomy History of tonsillectomy History of colonoscopy History of Problems with Anesthesia: No Social History Social History Household Members: Spouse Housing: House Are you a primary rn intensive care unit to a significant other at home: No Do you presently have visiting nurse or other home services: No Alcohol intake: current Alcohol intake frequency: does not drink Alcohol type: beer Comment: once Q 3-6 month glass of wine Patient Tobacco Use Status: Former Tobacco user Tobacco use type: Cigarette Years Smoked: 30 years Advance Directives Date on File: 06/24/23 service: No Current occupational status: retired 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 Cognitive needs: No Hearing needs: Yes Vision needs: Yes Meds Allergies Allergy/AdvReac Type Severity Reaction Status Date / Time No Known Allergies Allergy Verified 04/14/24 07:16 [No Known Allergies*] Active Medications: Current Medications Acetaminophen (Acetaminophen 325 Mg Tablet) 650 mg PO Q6H PRN PRN Reason: Pain, Mild (Pain Scale 1-3), fever or headache Allopurinol (Allopurinol 100 Mg Tablet) 100 mg PO DAILY [facility] Last Admin: 04/16/24 07:45 Dose: 100 mg Atorvastatin Calcium (Atorvastatin Calcium 40 Mg Tablet) 40 mg PO BEDTIME [facility] Last Admin: 04/15/24 20:19 Dose: 40 mg Calcium Carbonate (Calcium Carbonate 750 Mg Tab.Chew) 750 mg PO Q4H PRN PRN Reason: Heartburn Enoxaparin Sodium (Enoxaparin Sodium 40 Mg/0.4 Ml Syringe) 40 mg SUBCUT Q24H [facility] Last Admin: 04/16/24 11:08 Dose: Not Given Fluticasone/Umeclidinium/Vilanterol (Fluticasone/Umeclidinium/Vilanterol 200/62.5/25 Blst.W.Dev) 1 puff INHALE DAILY [facility] Last Admin: 04/16/24 07:36 Dose: 1 puff Lactated Ringer's (Lr) 1,000 mls @ 100 mls/hr IVCONT .Q10H [facility] Last Admin: 04/16/24 14:44 Dose: 100 mls/hr Magnesium Hydroxide (Milk Of Magnesia 30 Ml Oral.Susp) 30 ml PO DAILY PRN PRN Reason: Constipation Melatonin (Melatonin 3 Mg Tablet) 6 mg PO BEDTIME PRN PRN Reason: Insomnia Montelukast Sodium (Montelukast Sodium 10 Mg Tablet) 10 mg PO BEDTIME [facility] Last Admin: 04/15/24 20:19 Dose: 10 mg Ondansetron HCl (Ondansetron Hcl 4 Mg/2 Ml Vial) 4 mg IVPUSH Q8H PRN PRN Reason: Nausea and Vomiting Sacubitril/Valsartan (Sacubitril/Valsartan 49/51 1 Tab Tablet) 1 tab PO BID [facility]; Protocol Last Admin: 04/16/24 07:44 Dose: 1 tab Sodium Chloride (0.9 % Sodium Chloride Flush 3 Ml Syringe) 3 ml IVFLUSH QSHIFT [facility] Last Admin: 04/16/24 07:45 Dose: 3 ml Tamsulosin HCl (Tamsulosin Hcl 0.4 Mg Capsule) 0.4 mg PO BEDTIME [facility] Last Admin: 04/15/24 20:20 Dose: 0.4 mg Vitamin D (Cholecalciferol (Vitamin D3) 25 Mcg Tablet) 25 mcg PO DAILY [facility] Last Admin: 04/16/24 07:47 Dose: 25 mcg Home Medications ?Medication ?Instructions ?Recorded ?Confirmed ?Last Taken ?Type aspirin 81 mg tablet,delayed 81 mg PO DAILY 08/18/20 04/14/24 04/13/24 History release alendronate 70 mg tablet 70 mg PO FR 04/14/24 04/14/24 04/11/24 History fluticasone propionate 50 2 spray intranasal DAILY PRN 04/14/24 04/14/24 04/13/24 History mcg/actuation nasal Allergy Symptoms spray,suspension Exam Height,Weight and Vital Signs: Height 5 ft 6 in Weight 76.7 kg Last Vital Signs Temp 97.3 F 04/16/24 14:28 Pulse 80 04/16/24 14:28 Resp 18 04/16/24 14:28 BP 129/51 L 04/16/24 14:28 Pulse Ox 95 04/16/24 14:28 O2 Del Method Room Air 04/16/24 14:28 Pertinent Lab Results Pertinent Lab Results: Laboratory Tests 04/14/24 04/14/24 04/15/24 07:33 10:13 06:38 WBC 10.9 H 8.0 RBC 3.98 L 4.17 L Hgb 13.9 L 14.2 Hct 38.2 L 40.4 L MCV 96.0 96.9 MCH 34.9 H 34.1 H MCHC 36.4 H 35.1 RDW 13.2 13.2 Plt Count 199 219 MPV 8.9 L 8.9 L Immature Gran % (Auto) 0.6 H 0.5 H Neut % (Auto) 79.0 H 67.3 Lymph % (Auto) 12.4 L 20.4 Mckinley % (Auto) 5.9 9.4 Eos % (Auto) 1.7 2.0 Baso % (Auto) 0.4 0.4 Lymph # (Auto) 1.4 1.6 Mckinley # (Auto) 0.6 0.8 Eos # (Auto) 0.2 0.2 Baso # (Auto) 0.0 0.0 Abs Immat Gran (auto) 0.06 H 0.04 H Absolute Neuts (auto) 8.6 H 5.4 Absolute Nucleated RBC 0.000 0.000 Nucleated RBC % (auto) 0.0 0.0 PT 10.9 INR 0.9 Sodium 131 L 132 L Potassium 4.8 4.4 Chloride 99 99 Carbon Dioxide 24 25 Anion Gap 13 12 BUN 12 13 Creatinine 0.89 0.86 Estim Creat Clear Calc 61.3 63.4 Estimated GFR > 60 > 60 Random Glucose 185 H Fasting Glucose 125 H Calcium 8.9 9.2 Magnesium 2.2 Total Bilirubin 0.8 1.2 H AST 18 18 ALT 20 20 Alkaline Phosphatase 58 65 Troponin I High Sens < 2.7 < 2.7 B-Natriuretic Peptide 57 Total Protein 6.6 7.2 Albumin 3.8 4.2 Urine Color Yellow Urine Appearance Clear Urine pH 7.0 Ur Specific Mcgraws >= 1.030 H Urine Protein Negative Urine Glucose (UA) Negative Urine Ketones Negative Urine Blood Negative Urine Nitrite Negative Ur Leukocyte Esterase Negative 04/16/24 08:39 WBC 5.8 RBC 3.79 L Hgb 13.0 L Hct 35.8 L MCV 94.5 MCH 34.3 H MCHC 36.3 H RDW 13.2 Plt Count 174 MPV 9.2 L Immature Gran % (Auto) 0.5 H Neut % (Auto) 67.1 Lymph % (Auto) 18.2 L Mckinley % (Auto) 10.6 Eos % (Auto) 3.1 Baso % (Auto) 0.5 Lymph # (Auto) 1.1 L Mckinley # (Auto) 0.6 Eos # (Auto) 0.2 Baso # (Auto) 0.0 Abs Immat Gran (auto) 0.03 Absolute Neuts (auto) 3.9 Absolute Nucleated RBC 0.000 Nucleated RBC % (auto) 0.0 PT INR Sodium 132 L Potassium 3.4 D Chloride 98 Carbon Dioxide 26 Anion Gap 11 L BUN 8 L Creatinine 0.75 Estim Creat Clear Calc 72.7 Estimated GFR > 60 Random Glucose Fasting Glucose 129 H Calcium 8.3 L D Magnesium 2.4 Total Bilirubin 1.1 H AST 20 ALT 23 Alkaline Phosphatase 59 Troponin I High Sens B-Natriuretic Peptide Total Protein 6.2 L Albumin 3.6 Urine Color Urine Appearance Urine pH Ur Specific Mcgraws Urine Protein Urine Glucose (UA) Urine Ketones Urine Blood Urine Nitrite Ur Leukocyte Esterase Airway Mallampati Class: III TM Dist: >3cm Neck ROM: Limited Loose/Missing/Broken Teeth: Yes, Upper and Lower Heart: RRR Lungs: CTA but distant Assessment and Plan Final Anesthetic Review History of Problems with Anesthesia: No NPO: Yes ASA Class: III and Emergency Final Preanesthetic Review: Meds/Allgs Chart Reviewed, Consent Obtained/Reviewed and Anes Risks/Benef Reviewed Patient Risk: Intermediate Procedure Risk: Low Anesthetic Plan Anesthetic Plan: MAC: Disposition: Standard PACU
--- NOTE | 2024-04-16 16:18 | HO.OPN-COLON ---
Colonoscopy Operative Note Operative Note Date of Service: 04/16/24 Narrative: Operative Information Procedure Description: Colonoscopy Indication: abn imaging Anesthesia: MAC COLONOSCOPY Instrument: Olympus variable stiffness pediatric scope 190L Colonoscopy Monitoring: Vital signs and clinical assessment, continuous EKG monitoring, Pulse oximetry, Carbon Dioxide monitoring and blood pressure monitoring were done throughout the procedure. Colon withdrawal time was 17 minutes. Procedure: The patient was placed in the left lateral decubitis position and pre-procedure medications were administered. After a digital rectal examination of the ano-rectum, the video colonoscope was inserted into the rectum and advanced through the colon to the cecum/TI. The colonoscope was slowly withdrawn in a retrograde panoramic fashion and the colon mucosa was carefully examined including a retroflexed view of the rectum. Findings and interventions are described below. Procedure Difficulty: moderate Findings: Terminal Ileum-normal Cecum:normal right sided retroflexion- normal Ascending Colon: 3-4 mm sessile polyp removed with cold forceps Transverse Colon -normal Descending Colon: swollen fold noted with some erythema and congestion, bx taken Sigmoid Colon: mild to moderate diverticulosis, x1 sessile polyp 5-7 mm removed with cold snare Rectum: Retroflexion with small internal hemorrhoids seen, grade I, x 2 sessile plyps 6-8 mm removed with cold snare Anorectum - normal Intervention: cold snare, cold forceps Colon preparation: [place] Bowel Preparation Scale Right colon; 1-2 Transverse colon: 2 Left colon; 2 (0 = Unprepared colon segment with mucosa not seen due to solid stool that cannot be cleared. 1 = Portion of mucosa of the colon segment seen, but other areas of the colon segment not well seen due to staining, residual stool and/or opaque liquid. 2 = Minor amount of residual staining, small fragments of stool and/or opaque liquid, but mucosa of colon segment seen well. 3 = Entire mucosa of colon segment seen well with no residual staining, small fragments of stool or opaque liquid) Impression and Post Procedure Diagnosis: diverticulosis colon polyps internal hemorrhoids Plan: High fiber diet leaflet Avoid straining at stool, epsom salts and sitz bath, anusol supps or cream Repeat Colonoscopy not indicated given age recommend repeat CT with PO contrast, but no obvious mass was seen on this study, possibly the swollen folds in the descending colon were the areas noted on the index CT Above findings were reviewed with the patient and relevant handouts were provided if indicated.
[2024-04-16] MEDS: Montelukast Sodium 10 MG TABLET PO (21:54)
[2024-04-16] MEDS: Atorvastatin Calcium 40 MG TABLET PO (21:54)
[2024-04-16] MEDS: Tamsulosin HCL 0.4 MG CAPSULE PO (21:54)
[2024-04-17 00:25] VITALS: BP 153/68; PULSE 73; RESP 16; TEMP 37.1; O2SAT 96
[2024-04-17 04:01] VITALS: BP 111/53; PULSE 90; RESP 20; TEMP 36.2; O2SAT 94
[2024-04-17 07:19] LABS: Alanine Aminotransferase 20 U/L (0-40); Albumin Level 3.4 g/dL (3.5-5.0); Alkaline Phosphatase 57 U/L (39-117); Anion Gap 10 (12-20); Aspartate Amino Transferase 17 U/L (5-37); Bilirubin Total 1.1 mg/dL (0.0-1.0); Blood Urea Nitrogen 10 mg/dL (9-16); Calcium 8.2 mg/dL (8.4-10.2); Carbon Dioxide 25 mmol/L (22-29); Chloride 101 mmol/L (96-108); Creatinine Clr Calc Pharmacy 76.8; Estimated Glomerular Filt Rate > 60; Glucose Fasting 107 mg/dL (60-99); Potassium 3.5 mmol/L (3.3-5.1); Sodium 132 mmol/L (135-145); Total Protein 5.9 g/dL (6.5-8.0)
[2024-04-17] MEDS: Fluticasone/Umeclidinium/Vilanterol 200/62.5/25 BLST.W.DEV 1 PUFF INHALE (07:31)
[2024-04-17 07:32] VITALS: BP 146/67; PULSE 69; RESP 20; TEMP 36.2; O2SAT 96
[2024-04-17 07:35] VITALS: PULSE 75; RESP 18; O2SAT 95
--- NOTE | 2024-04-17 08:04 | HO.POSTANES ---
Post Anesthesia Evaluation Post Anesthesia Evaluation Date of Service: 04/17/24 Vital Signs: Vital Signs Temp Pulse Resp BP Pulse Ox O2 Del Method O2 Flow Rate 04/17/24 07:35 75 18 04/17/24 07:32 97.2 F 69 20 146/67 H 96 Nasal Cannula 2 04/17/24 04:01 97.1 F 90 20 111/53 L 94 Nasal Cannula 2 04/17/24 00:25 98.7 F 73 16 153/68 H 96 Room Air 04/16/24 21:52 118/57 L 04/16/24 20:13 98.5 F 86 20 118/57 L 95 Room Air Anesthesia: Monitored Mental Status: Awake Pain Control: Satisfactory Nausea/Vomiting: None Hydration: Adequate Anesthesia-Related Issues: No Anes. Related Issues
[2024-04-17] MEDS: Psyllium seed 3.7 GM PACKET PO (08:43)
[2024-04-17] MEDS: Sacubitril/Valsartan 49/51 1 TAB TABLET PO (08:43)
[2024-04-17] MEDS: Cholecalciferol (Vitamin D3) 25 MCG TABLET PO (08:43)
[2024-04-17] MEDS: allopurinoL 100 MG TABLET PO (08:43)
[2024-04-17] MEDS: 0.9 % Sodium Chloride Flush 3 ML SYRINGE IVFLUSH (08:50)
[2024-04-17] MEDS: Lactated Ringers 1,000 ML 100 ML IVCONT (09:54)
[2024-04-17] MEDS: Enoxaparin Sodium 40 MG/0.4 ML SYRINGE SUBCUT (11:13)
[2024-04-17] MEDS: Barium Sulfate Oral (Vanilla) 450 ML ORAL.SUSP 900 ML PO (11:48)
--- NOTE | 2024-04-17 12:07 | PM.DS ---
DS: Providers Provider Date of Service: 04/17/24 Date of admission: 04/14/24 10:52 Date of discharge: 04/17/24 Primary care physician: Leila Merida MD Consults: 04/14/24 10:54 Consult to Cardiology Routine Consulting Provider: [facility] Reason for consultation: syncope Has provider been notified: Yes DS: Diagnosis Discharge Diagnosis (1) Colonic mass: Status: Acute (2) Syncope: Status: Acute DS: Summary Hospital Course Hospital Course: Admission note HPI 83-year-old male with past medical history significant for V-tach with AICD followed by Dr. Flaherty, hypertension, ischemic cardiomyopathy, CVA, interstitial lung disease, PMR. Brought in by ambulance after an unwitnessed fall. Patient states he was getting up this morning after having some mild abdominal discomfort. States he took a few steps and felt dizzy returned to bed. He states symptoms resolved he had attempted to walk to the bathroom again and woke up on the floor with his standing over him. Denies palpitations chest pain or shortness of breath prior to fall. Laceration above left thigh with contusion to left cheek secondary to fall breaking glasses. In the emergency room CTA of head/spine/chest/abdomen and pelvis failed to demonstrate any acute pathology the could be responsible for presenting complaint. Of note, there was found colonic mass in the transverse colon; new to patient. Can not recall his last colonoscopy. He will be admitted for workup of the same Hospital course # Syncope No recurrent happened while inpatient. pacer interrogation without acute finding or abnormalities. He had short run of asymptomatic VTach. Echo showed EF 50-55%. seen by cardiology. continue amiodarone on discharge. seems to be related more to vasovagal attack. advised to remain well hydrated, # Abnormal Colonic CT scan CT reported possible mass (transverse colon). He underwent colonoscopy showing NO masses but few polyps which were biopsied and pending pathology. To be followed by dr Corrales in office in [address] scan with oral contrast for visualisation if the reported mass is still a possibility. # Chronic Hyponatremia, stable at baseline 130-134 Discharge plan Stay well hydrated Take Fiber supplement Avoid constipation and straining To follow with dr Corrales office in 2 weeks for pathology results Time Attestation Discharge Coordination Time (in mins): 37 Quality: Safe Use of Opioids Does Pt have an Active Cancer Diagnosis on the Problem List?: No Quality: Stroke Does the patient have a stroke diagnosis?: No Physical Exam Vital Signs: Vital Signs: Last Vital Signs Temp 97.2 F 04/17/24 07:32 Pulse 75 04/17/24 07:35 Resp 18 04/17/24 07:35 BP 146/67 H 04/17/24 07:32 Pulse Ox 96 04/17/24 07:32 O2 Del Method Nasal Cannula 04/17/24 07:32 O2 Flow Rate 2 04/17/24 07:32 BMI result Body Mass Index 27.3 Const: Other: Constitutional : Awake, interactive, not in distress Neck : Normal inspection, Supple Cardiovascular : RRR, no JVP, no lower extremity edema Respiratory : good bilateral air entry, no crackles, wheezes or rhonchi Gastrointestinal: soft, lax, Normal bowel sounds, Non tender Skin : Warm, Dry, Contusion low left orbital rim Neurological : Alert & oriented x3, No focal deficit DS: Data Data Completed and Pending Pending studies at discharge: Pending at discharge 04/16/24 15:50 Surgical [PTH] Routine Labs on day of discharge: Laboratory Results - last 24 hr 04/16/24 04/17/24 08:39 05:51 Hold Purple Top SEE NOTE Sodium 132 L Potassium 3.5 Chloride 101 Carbon Dioxide 25 Anion Gap 10 L BUN 10 Creatinine 0.71 Estim Creat Clear Calc 76.8 Estimated GFR > 60 Fasting Glucose 107 H Calcium 8.2 L Magnesium 2.4 Total Bilirubin 1.1 H AST 17 ALT 20 Alkaline Phosphatase 57 Total Protein 5.9 L Albumin 3.4 L Imaging Chest x-ray: Radiologist's impression: ITS Impressions Chest CT 04/14/24 07:08 IMPRESSION: 1. No evidence of an acute traumatic injury in the chest, abdomen or pelvis. 2. Incidental note made of marked emphysematous changes with fibrotic changes and cylindrical bronchiectasis. 3. Abnormal area in the distal transverse colon suspicious for a colonic neoplasm. Colonoscopy is recommended for further evaluation. 4. Other incidental findings as described above. Fleischner guidelines were followed. Electronically signed by: Alexandre Gutierrez MD 04/14/2024 09:22 AM EDT RP Head CT 04/14/24 07:08 IMPRESSION: CT head: No acute intracranial finding. CT cervical spine: No cervical spine fracture or traumatic malalignment identified. Electronically signed by: Roque Mares MD 04/14/2024 08:50 AM EDT RP Cervical Spine CT 04/14/24 08:08 IMPRESSION: CT head: No acute intracranial finding. CT cervical spine: No cervical spine fracture or traumatic malalignment identified. Electronically signed by: Roque Mares MD 04/14/2024 08:50 AM EDT RP Abdomen/Pelvis CT 04/14/24 08:11 IMPRESSION: 1. No evidence of an acute traumatic injury in the chest, abdomen or pelvis. 2. Incidental note made of marked emphysematous changes with fibrotic changes and cylindrical bronchiectasis. 3. Abnormal area in the distal transverse colon suspicious for a colonic neoplasm. Colonoscopy is recommended for further evaluation. 4. Other incidental findings as described above. Fleischner guidelines were followed. Electronically signed by: Alexandre Gutierrez MD 04/14/2024 09:22 AM EDT RP Discharge Plan Discharge Anticipated Discharge Date/Time: 04/17/24 11:59 Patient Disposition: Home, Self-Care Discharge Diagnosis: Syncope Colon mass Referrals: Po,Leila Storey MD [Primary Care Provider] - 1 Week Discharge Medications: New Hydrocil Instant Packet 1 packet PO DAILY Qty: 90 2RF Continued Trelegy Ellipta 200-62.5-25 mcg blister with device 1 inh inhalation DAILY 30 Days Qty: 60 12RF atorvastatin 40 mg tablet 40 mg PO BEDTIME Qty: 60 2RF Entresto 49-51 mg tablet 1 tab PO BID 90 Days Qty: 180 0RF cholecalciferol (vitamin D3) 25 mcg (1,000 unit) capsule 25 mcg PO DAILY Qty: 30 2RF clopidogrel 75 mg tablet 75 mg PO DAILY Qty: 90 1RF tamsulosin 0.4 mg capsule 0.4 mg PO BEDTIME 90 Days Qty: 90 1RF alendronate 70 mg tablet 70 mg PO FR fluticasone propionate 50 mcg/actuation spray,suspension 2 spray intranasal DAILY PRN (Reason: Allergy Symptoms) albuterol sulfate 90 mcg/actuation HFA aerosol inhaler 2 puff inhalation Q6H PRN (Reason: shortness of breath or wheezing) Qty: 6.7 0RF allopurinol 100 mg tablet 100 mg PO DAILY Qty: 90 3RF aspirin 81 mg tablet,delayed release (DR/EC) 81 mg PO DAILY montelukast [Singulair] 10 mg tablet 10 mg PO BEDTIME 30 Days Qty: 30 11RF Discharge Orders: Discharge Order (Routine); Ordered 04/17/24 Ordered By: Evelia Delgado Diet: Advance to usual diet Activity on Discharge: As tolerated Stand Alone Forms: Patient Portal Discharge page Print Language: Iranian Care Plan Goals: Stay well hydrated Take Fiber supplement Avoid constipation and straining To follow with dr Corrales office in 2 weeks for pathology results Health Concerns: Syncope Abnormal Colon image Plan of Treatment: Read below Assessment: improved
[2024-04-17 12:11] VITALS: BP 140/64; PULSE 88; RESP 20; TEMP 36.7; O2SAT 92
--- NOTE | 2024-04-17 12:29 | MHC.CM.PN ---
DP: PT HAS BEEN MEDICALLY CLEARED FOR DC HOME, NO SERVICES. PT'S SON WILL TRANSPORT HOME.
--- NOTE | 2024-04-17 13:03 | P.PNGI_ITS ---
Subjective Subjective Date of Service: 04/17/24 Interval History: he is doing well no abdominal pain no nausea or vomiting no melena or rectal bleeding had rept CT today with PO contrast Critical Care Time (minutes): 0 Physical Exam 2 Vital Signs: Vital Signs: Last Vital Signs Temp 98.0 F 04/17/24 12:11 Pulse 88 04/17/24 12:11 Resp 20 04/17/24 12:11 BP 140/64 H 04/17/24 12:11 Pulse Ox 92 04/17/24 12:11 O2 Del Method Room Air 04/17/24 12:11 O2 Flow Rate 2 04/17/24 07:32 BMI result Body Mass Index 27.3 EXAM: GENERAL: The patient is well developed and nontoxic. VITAL SIGNS:see workflow HEENT: Nonicteric sclerae, PERRLA, EOMI. Oropharynx clear. Moist mucous membranes. Conjunctivae appear well perfused. No thyroid mass. CHEST: Chest wall is nontender. HEART: Regular rate and rhythm without murmurs. LUNGS: Clear to auscultation bilaterally. ABDOMEN: Soft, positive bowel sounds, nontender, no organomegaly.no flank tenderness SKIN: bruise on cheek and forehead, sutures noted NEUROLOGIC: Cranial nerves II-XII intact without motor/sensory deficit. Psych: normal affect Objective Data Labs 04/16/24 08:39 04/17/24 05:51 Labs: Laboratory Results - last 24 hr 04/16/24 04/17/24 08:39 05:51 Hold Purple Top SEE NOTE Sodium 132 L Potassium 3.5 Chloride 101 Carbon Dioxide 25 Anion Gap 10 L BUN 10 Creatinine 0.71 Estim Creat Clear Calc 76.8 Estimated GFR > 60 Fasting Glucose 107 H Calcium 8.2 L Magnesium 2.4 Total Bilirubin 1.1 H AST 17 ALT 20 Alkaline Phosphatase 57 Total Protein 5.9 L Albumin 3.4 L Procedures Date of Service Date of Service: 04/17/24 Progress Note: A&P Assessment and plan (1) Colonic mass: Status: Acute Plan 1/ Abn imaging with possible colonic mass, nothing seen on colonoscopy, small poylps removed some swollen folds noted in the descending colon, bx taken 1/ Await rept CT with PO, if abn will consider repeat in 3-4 weeks 2/ await path results from colonoscopy 3/ can restart ASA and plavix Time Spent With Patient Time: Total time managing care of this patient today ____ minutes. Quality Stroke Does the patient have a stroke diagnosis?: No VTE Prior VTE?: No VTE Risk Level:: Medical - moderate - high VTE Device Contraindication: Treatment Not Indicated VTE Drug Contraindication: N/A - Med Ordered
== END 2024-04-17 14:17 | disposition home or self-care (01) | DRG 312 ==
LOC: HO.ED 10:36 → HO.EDOVER 11:01 → HO.IMC 15:21
PROVIDERS: Internal Medicine Gastroenterology; Physician Assistant; Admitting Provider Hospitalist; Emergency Provider Emergency Medicine; PCP Internal Medicine; Visit Provider Student in an Organized Health Care Education/Training Program
PROC: 0DJD8ZZ Inspection of Lower Intestinal Tract, Via Natural or Artificial Opening Endoscopic (ICD-10-PCS; CPT 45378; principal; 2024-04-16 16:00)
DX: R55 Syncope and collapse (principal); E87.1 Hypo-osmolality and hyponatremia; I47.20 Ventricular tachycardia, unspecified; J84.9 Interstitial pulmonary disease, unspecified; M35.3 Polymyalgia rheumatica; K63.5 Polyp of colon; K64.0 First degree hemorrhoids; K57.30 Diverticulosis of large intestine without perforation or abscess without bleeding; I10 Essential (primary) hypertension; Z45.02 Encounter for adjustment and management of automatic implantable cardiac defibrillator; I25.10 Atherosclerotic heart disease of native coronary artery without angina pectoris; I25.2 Old myocardial infarction; I25.5 Ischemic cardiomyopathy; Z79.891 Long term (current) use of opiate analgesic; Z79.51 Long term (current) use of inhaled steroids; Z79.82 Long term (current) use of aspirin; Z79.899 Other long term (current) drug therapy
CPT/HCPCS: 36415; 70450; 71260; 72125; 74176; 74177; 80053; 81003; 83735; 83880; 84484; 85025; 85610; 88305; 90715; 93005; 93306; 99285; J1650; J2003; J2704; J3475; J7120; Q9957; Q9967

== ENCOUNTER → 2024-04-14 10:52 | Outpatient (BNV) | payer MEDICARE, OTHER, SELFPAY | PROVIDERS: Admitting Provider Hospitalist; Emergency Provider Emergency Medicine; PCP Internal Medicine; Visit Provider Hospitalist | DX: R55 Syncope and collapse (principal); K63.89 Other specified diseases of intestine | CPT/HCPCS: 99222; 99232; 99239 ==

== ENCOUNTER → 2024-04-14 10:52 | Outpatient (BNV) | payer MEDICARE, OTHER, SELFPAY | PROVIDERS: Admitting Provider Hospitalist; Emergency Provider Emergency Medicine; PCP Internal Medicine; Visit Provider Internal Medicine Gastroenterology | DX: K63.89 Other specified diseases of intestine (principal); R93.3 Abnormal findings on diagnostic imaging of other parts of digestive tract; K63.5 Polyp of colon; K57.30 Diverticulosis of large intestine without perforation or abscess without bleeding; K64.0 First degree hemorrhoids; K62.1 Rectal polyp | CPT/HCPCS: 45380; 45385; 99223; 99232 ==

== ENCOUNTER → 2024-04-14 10:52 | Outpatient (BNV) | payer MEDICARE, OTHER, SELFPAY ==
--- NOTE | 2024-04-16 13:10 | MHC.OFFVIS ---
Intake Visit Reasons: syncope Allergies No Known Allergies [No Known Allergies*] Allergy (Verified 04/14/24 07:16) COUNTS INCLUDE 234 BEDS AT THE [facility] Medical History Allergies Dental abscess Dysphagia Elevated PSA Abrasion Bursitis of left shoulder Joint pain Effusion, left knee Prostate nodule Microscopic hematuria Bladder outlet obstruction Pes anserinus bursitis of right knee Effusion, right knee Ventricular tachycardia Ischemic cardiomyopathy Atherosclerotic cardiovascular disease Cardiomyopathy Pacemaker ILD (interstitial lung disease) Pulmonary nodules COPD (chronic obstructive pulmonary disease) Bursitis of right shoulder Medial meniscus tear Osteoarthritis of right knee Surgical History History of carpal tunnel release History of cholecystectomy History of tonsillectomy History of colonoscopy Family History Father No problems noted. Mother No problems noted. Son No problems noted. Social History Household Members: Spouse Housing: House Do you presently have visiting nurse or other home services: No Alcohol intake: current Alcohol intake frequency: does not drink Alcohol type: beer Comment: once Q 3-6 month glass of wine Patient Tobacco Use Status: Former Tobacco user Tobacco use type: Cigarette Years Smoked: 30 years Advance Directives Date on File: 06/24/23 service: No Current occupational status: retired 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 Cognitive needs: No Hearing needs: Yes Vision needs: Yes Office Procedures Cardiac Device Check Cardiac Device Check Details: Date of service 04/10/2024; Battery life >11 years; normal lead parameters; no treated VT/VF; normal ICD function. [id number] Cardiac Interrogation, implant defibrillator w/interim Procedure code (CPT) selection complete Assessment & Plan Assessment & Plan (1) ICD (implantable cardioverter-defibrillator) in place: Code(s): Z95.810 - Presence of automatic (implantable) cardiac defibrillator Category: Medical (2) Ischemic cardiomyopathy: Code(s): I25.5 - Ischemic cardiomyopathy Category: Medical Plan x Coding Level of Care Code Procedure Only Diagnoses ICD (implantable cardioverter-defibrillator) in place Z95.810 Ischemic cardiomyopathy I25.5 CPT Codes Cardiac Device Check - Cardiac Device 13: [id number] Cardiac Interrogation, implant defibrillator w/interim ([id number])
== END ==
PROVIDERS: Admitting Provider Hospitalist; Emergency Provider Emergency Medicine; PCP Internal Medicine; Visit Provider Internal Medicine Cardiovascular Disease
DX: R55 Syncope and collapse (principal); Z95.810 Presence of automatic (implantable) cardiac defibrillator; I25.5 Ischemic cardiomyopathy
CPT/HCPCS: 93306; 99222; 99232

== ENCOUNTER 2024-04-21 09:19 | Outpatient (AMB) | payer MEDICARE, OTHER, SELFPAY ==
--- NOTE | 2024-04-21 09:24 | A.OFFPC_ITS ---
Vital Signs 04/21/24 09:27 Height 5 ft 6 in Weight 74.616 kg BMI 26.5 BP 120/60 Blood Pressure Location Lt brachial Position Sitting Pulse 82 Pulse Source Pulse Oximeter Pulse Oximetry (%) 97 Oxygen Delivery Method Room Air Intake Visit Reasons: [facility] 04/17 Fainting Intake Note: Patient is here for hospital discharge follow up and TCM. Patient was discharged from [facility] on 04/17/24. 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 04/17 Fainting HPI Details 83-year-old male with multiple medical p roblems COPD polymyalgia history of prostate cancer (03/04/2021) interstitial lung disease history of CVA coronary artery disease with cardiomyopathy with an ICD hypertension hypercholesterolemia coming in for follow-up. Last seen in March 03. Patient was seen by Cardiology in April 17 for cardiac device check. Urology notes appreciated April 01 following up with PSA and testosterone PSA remains undetectable(status post external beam radiation with GnRH August 2021) cont inuing with PSA surveillance. Before that in December 11 was seen by Cardiology most recent echocardiogram 40-45% ejection fraction patient also is on amiodarone due to history of VT stress test January 2023 showing severe large mid anterior apical anterior apical and apical inferior weaver with mild eric-infarct ischemia on the mid anterior wall after attenuation correction. Showing LAD territory infarct with low normal left ventricular systolic function with akinesis of the apical inferior and apical weaver patient also has some mild to moderate oropharyngeal dysphagia.PAtient relates to nd that was in the hospital last week for syncope. work up negative. TCM TCM Information Date of Discharge 04/17/24 Discharged From [facility] Interactive Contact Date (Reference documentation from this date) 04/18/24 [facility] Medical History Allergies Dental abscess Dysphagia Elevated PSA Abrasion Bursitis of left shoulder Joint pain Effusion, left knee Prostate nodule Microscopic hematuria Bladder outlet obstruction Pes anserinus bursitis of right knee Effusion, right knee Ventricular tachycardia Ischemic cardiomyopathy Atherosclerotic cardiovascular disease Cardiomyopathy Pacemaker ILD (interstitial lung disease) Pulmonary nodules COPD (chronic obstructive pulmonary disease) Bursitis of right shoulder Medial meniscus tear Osteoarthritis of right knee Surgical History History of carpal tunnel release History of cholecystectomy History of tonsillectomy History of colonoscopy Family History (Updated 04/21/24 @ 09:25 by CHIO Augustin) Father No problems noted. Mother No problems noted. Son No problems noted. Social History Household Members: Spouse Housing: House Are you a primary care transport nurse to a significant other at home: No Do you presently have visiting nurse or other home services: No Alcohol intake: current Alcohol intake frequency: does not drink Alcohol type: beer Comment: once Q 3-6 month glass of wine Patient Tobacco Use Status: Former Tobacco user Tobacco use type: Cigarette Years Smoked: 30 years e-Cigarette/Vaping Use: Never Used Second Hand Smoke Exposure: Yes Advance Directives Date on File: 06/24/23 service: No Current occupational status: retired 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 Cognitive needs: No Hearing needs: Yes Vision needs: Yes Questionnaire Thrive Questionnaire Date Thrive assessed: 04/15/24 Are you currently unemployed and looking for a job?: No CORINNE-7 AMB Questionnaire CORINNE-7 Date CORINNE - 7 assessed: 08/01/23 Source: Developed by Drs. Deacon Rod, Paulette Rose, Aurelio Lopez and colleagues, with an educational dell from [employer]. Physical exam (Primary Care) Vital Signs: Last Vital Signs Pulse 82 04/21/24 09:27 BP 120/60 04/21/24 09:27 Pulse Ox 97 04/21/24 09:27 Oxygen Delivery Method Room Air 04/21/24 09:27 BMI result Body Mass Index 26.5 Tobacco/Smoking Status: Tobacco use Status Tobacco use date assessed 04/21/24 04/21/24 09:35 Patient Tobacco Use Status Former Tobacco user 04/21/24 09:25 Tobacco use type Cigarette 04/21/24 09:25 e-Cigarette/Vaping Use Never Used 04/21/24 09:35 Thrive Assessment: Date of Thrive Assessment Date Thrive assessed 10/01/24 10/07/24 09:25 Const Other: Hematoma on the left side of the face and left eyebrow noted also multiple hematomas on the arms General: alert; No acute distress Eyes Conjunctivae: conjunctivae normal Resp Auscultation: clear to auscultation bilaterally Cardio Rate: regular rate Rhythm: regular rhythm GI Inspection: Yes normal to inspection Extrem General: Yes normal to inspection and No edema Office Procedures Flu Questionnaire Does the patient have a severe egg allergy?: No Does the patient have severe life threatening allergies?: No Does the patient have a fever or illness today?: No Has the patient ever had Guillain-[place] Syndrome?: No Has the patient ever had any past reaction to a flu shot?: No Results AMB Hemoglobin A1c AMB Hemoglobin A1c 5.9 % Last Edit by CHIO Augustin on 04/21/24 09:43 Immunizations Fluarix Triv [id number] (PF) 45 mcg (15 mcg x 3)/0.5 mL IM syringe Performing Provider: Leila Merida MD 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 0.5 mL IM Left Deltoid 0.5 mL [id number] 01/12/25 [id number] [employer] VIS Given Date VIS Provided VIS Publication Date 04/21/24 Single Vaccine 21 Eligibility Eligibility Date Funding Source Not [facility] Eligible 04/21/24 Private Results Reviewed Results Reviewed: Laboratory Last Values Hgb A1c (Clinic) 5.9 % (4.0-6.0) 04/21/24 09:24 Coding Level of Care Code Est Pt Level 4 (29318) Complex EM visit Add On G2211 Diagnoses 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 COPD type: chronic bronchitis Chronic bronchitis type: simple Prostate cancer C61 Atherosclerotic cardiovascular disease I25.10 Ischemic cardiomyopathy I25.5 Hypertension I10 Hypercholesterolemia E78.00 Impaired glucose tolerance R73.02 Assessment & Plan Assessment & Plan (1) COPD (chronic obstructive pulmonary disease): Code(s): J44.9 - Chronic obstructive pulmonary disease, unspecified Category: Medical Qualifiers: COPD type: chronic bronchitis Chronic bronchitis type: simple Qualified Code(s): J41.0 - Simple chronic bronchitis Plan: Continue to follow-up with Pulmonary on albuterol inhaler Malathi Vera. (2) Prostate cancer: Comment: 04/05 High-grade, moderate volume, localized disease Initial therapy external beam radiation with [facility] August 2021 Code(s): C61 - Malignant neoplasm of prostate Category: Medical Plan: Continue to follow-up with urology on tamsulosin (3) Atherosclerotic cardiovascular disease: Code(s): I25.10 - Atherosclerotic heart disease of [place] coronary artery without angina pectoris Category: Medical Plan: Control the cholesterol, weight, blood pressure, on aspirin 81 mg once a day and clopidogrel (4) Ischemic cardiomyopathy: Code(s): I25.5 - Ischemic cardiomyopathy Category: Medical Plan: Patient is on Entresto. (5) Hypertension: Code(s): I10 - Essential (primary) hypertension Category: Medical Plan: Continue with blood pressure medication. Decrease salt intake and exercise continue with Entresto (6) Hypercholesterolemia: Code(s): E78.00 - Pure hypercholesterolemia, unspecified Category: Medical Plan: Avoid fried foods, chicken skin, eggs, butter margarine, pastries and meat. Be it pork or beef they have a lot of cholesterol LDL goal of less than 70 and triglyceride of less than 150 on atorvastatin 40 mg once a day (7) Impaired glucose tolerance: Code(s): R73.02 - Impaired glucose tolerance (oral) Category: Medical Plan: Decrease the amount of carbohydrate intake, pasta, bread, rice and potatoes are all sugar and that is aside from all the sweet stuff, remember that fruits are good but they are Sweet also. Orders: Orders AMB Hemoglobin A1c Today R73.02 - Impaired glucose tolerance (oral) Lipid Panel 3 Months E78.00 - Pure hypercholesterolemia, unspecified, R73.02 - Impaired glucose tolerance (oral) B Type Natriuretic Peptide 3 Months R73.02 - Impaired glucose tolerance (oral) Magnesium 3 Months R73.02 - Impaired glucose tolerance (oral) Influenza [id number] Immunization Today Z23 - Encounter for immunization Complete Blood Count Auto Diff 3 Months R73.02 - Impaired glucose tolerance (oral) Comprehensive Met. Panel 3 Months R73.02 - Impaired glucose tolerance (oral) Free T4 (Free Thyroxine) 3 Months R73.02 - Impaired glucose tolerance (oral) Thyroid Stimulating Hormone 3 Months R73.02 - Impaired glucose tolerance (oral) Vitamin B12 and Folate 3 Months R73.02 - Impaired glucose tolerance (oral)
[2024-04-21 09:27] VITALS: BP 120/60; PULSE 82; O2SAT 97; BMI 26.5
== END 2024-04-21 09:54 | disposition home or self-care (01) ==
PROVIDERS: PCP Internal Medicine; Visit Provider Internal Medicine
DX: J41.0 Simple chronic bronchitis (principal); C61 Malignant neoplasm of prostate; I25.10 Atherosclerotic heart disease of native coronary artery without angina pectoris; I25.5 Ischemic cardiomyopathy; I10 Essential (primary) hypertension; E78.00 Pure hypercholesterolemia, unspecified; R73.02 Impaired glucose tolerance (oral); Z23 Encounter for immunization

== ENCOUNTER → 2024-04-21 09:19 | Outpatient (BNVA) | payer MEDICARE, OTHER, SELFPAY | PROVIDERS: PCP Internal Medicine; Visit Provider Internal Medicine | DX: Z23 Encounter for immunization (principal); J41.0 Simple chronic bronchitis; C61 Malignant neoplasm of prostate; I25.10 Atherosclerotic heart disease of native coronary artery without angina pectoris; I25.5 Ischemic cardiomyopathy; I10 Essential (primary) hypertension; E78.00 Pure hypercholesterolemia, unspecified; R73.02 Impaired glucose tolerance (oral) | CPT/HCPCS: 83036; 90471; 90656; 99212 ==

== ENCOUNTER 2024-04-30 12:20 | Outpatient (AMB) | payer MEDICARE, OTHER, SELFPAY ==
[2024-04-30 12:35] VITALS: BP 120/74; PULSE 73; BMI 27.0
--- NOTE | 2024-04-30 12:35 | A.OFFVIS_ITS ---
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 Allergies No Known Allergies [No Known Allergies*] Allergy (Verified 04/21/24 09:26) Medication List - Last Reconciled 04/30/24 by Joey Flaherty MD albuterol sulfate 90 mcg/actuation 2 puffs inhalation Q6H PRN alendronate 70 mg PO FR allopurinol 100 mg PO DAILY aspirin 81 mg PO DAILY atorvastatin 40 mg PO BEDTIME cholecalciferol (vitamin D3) 25 mcg PO DAILY clopidogrel 75 mg PO DAILY fluticasone propionate 50 mcg/actuation 2 sprays intranasal DAILY PRN fpovmgozjhn-jypbocgea-bsalulal 200-62.5-25 mcg (Trelegy Ellipta) 1 inh inhalation DAILY 30 days montelukast (Singulair) 10 mg PO BEDTIME 30 days psyllium (Hydrocil Instant oral packet) 1 packet PO DAILY sacubitril-valsartan 49-51 mg (Entresto) 1 tab PO BID 90 days tamsulosin 0.4 mg PO BEDTIME 90 days HPI Comments Details: Deacon returns for follow-up. Previously, patient of [facility] but switched over to us. He has a history of myocardial infarction many years ago with an ischemic cardiomyopathy/large anterior/apical scar. He had a pacemaker due to multiple syncopal episodes. Then it seems that he was noted to have VT episodes on pacemaker and hence required ICD upgrade. No issues in that regard. He was taking amiodarone but not anymore. Otherwise, stroke in 2022 and he is on dual antiplatelet therapy. Recently, had some stomach upset type symptoms that was followed by a vasovagal episode. However, device interrogation at that time did not show any significant arrhythmias. Telemetry was also unremarkable. He was not discharged and he states he feels fine now. He is walking several miles with no issues. [facility] Medical History Colonic mass Allergies Dental abscess Dysphagia Elevated PSA Abrasion Bursitis of left shoulder Joint pain Effusion, left knee Prostate nodule Microscopic hematuria Bladder outlet obstruction Pes anserinus bursitis of right knee Effusion, right knee Ventricular tachycardia Ischemic cardiomyopathy Atherosclerotic cardiovascular disease Cardiomyopathy Pacemaker ILD (interstitial lung disease) Pulmonary nodules COPD (chronic obstructive pulmonary disease) Bursitis of right shoulder Medial meniscus tear Osteoarthritis of right knee Surgical History History of carpal tunnel release History of cholecystectomy History of tonsillectomy History of colonoscopy Family History (Updated 04/21/24 @ 09:25 by CHIO Augustin) Father No problems noted. Mother No problems noted. Son No problems noted. Social History Household Members: Spouse Housing: House Are you a primary home health care physician to a significant other at home: No Do you presently have visiting nurse or other home services: No Alcohol intake: current Alcohol intake frequency: does not drink Alcohol type: beer Comment: once Q 3-6 month glass of wine Patient Tobacco Use Status: Former Tobacco user Tobacco use type: Cigarette Years Smoked: 30 years e-Cigarette/Vaping Use: Never Used Second Hand Smoke Exposure: Yes Advance Directives Date on File: 06/24/23 service: No Current occupational status: retired 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 Cognitive needs: No Hearing needs: Yes Vision needs: Yes Review of Systems Const Denies chills, Denies fatigue, Denies fever(s), Denies frequent falls, Denies weakness, Denies weight gain and Denies weight loss ENT Denies dizziness Card Denies chest pain, Denies leg edema, Denies lightheadedness, Denies palpitations, Denies dyspnea, Denies dyspnea on exertion, Denies orthopnea and Denies other (loss of consciousness) Resp Denies cough, Denies dyspnea and Denies dyspnea on exertion GI Denies hematochezia and Denies change in stool character Musc Denies abnormal gait, Denies muscle weakness, Denies numbness, Denies radiating pain into limb and Denies tingling Neuro Denies abnormal gait, Denies dizziness, Denies frequent falls, Denies numbness, Denies tingling and Denies weakness Endo Denies fatigue and Denies palpitations Physical Exam Vital Signs: Last Vital Signs Pulse 73 04/30/24 12:35 BP 120/74 04/30/24 12:35 BMI result Body Mass Index 27.0 Const General: comfortable and no acute distress Orientation/consciousness: patient oriented x3 HEENT Other: Unremarkable Head: Yes normal to inspection Neck Neck: Yes normal visual inspection Chest Chest palpation & inspection: normal inspection of the chest Resp Auscultation: clear to auscultation bilaterally Cardio Palpation: normal PMI Heart sounds: S1 normal heart sound present, S2 normal heart sound present, no gallops, no murmurs and no rubs GI Palpation (GI): Soft to palpation Back/Spine/Pelvis Other: unremarkable Skin General skin exam: no rashes or lesions noted Neuro General: patient oriented x3 Extrem General: Yes normal to inspection Psych Mental Status: mental status grossly normal Assessment & Plan Assessment & Plan (1) Atherosclerotic cardiovascular disease: Code(s): I25.10 - Atherosclerotic heart disease of [place] coronary artery without angina pectoris Category: Medical Plan: Had coronary disease in , anterior MS complicated by cardiac arrest. Single-vessel LAD on catheterization then. No PCI performed. Clinically, he does not really have any angina. On aspirin and statins. LDL levels are well controlled. Nuclear stress test from [facility], 01/2023, with report of LAD territory infarct with mild eric-infarct ischemia. (2) Ischemic cardiomyopathy: Code(s): I25.5 - Ischemic cardiomyopathy Category: Medical Plan: Most recently, echocardiogram with LVEF 50-55%. Wall motion abnormalities due to underlying coronary disease. Clinically, no heart failure symptoms or signs. He is on Entresto but not on beta-blockers. He has had issues with bradycardia but that should not be a problem now that he has an ICD. Hence unless blood pressure issues, will be able to use. (3) Ventricular tachycardia: Code(s): I47.20 - Ventricular tachycardia, unspecified Category: Medical Plan: Per prior cardiology note, had a long run of VT, self-terminated. s/p ICD. Was on amiodarone but has been stopped. (4) Presence of implantable cardioverter-defibrillator (ICD): Code(s): Z95.810 - Presence of automatic (implantable) cardiac defibrillator Category: Surgical Plan: Can be followed on remote monitoring. In the past, it seems that he actually had sick sinus syndrome and then had a pacemaker which was then upgraded to ICD based on VT episodes. (5) CVA (cerebral vascular accident): Comment: Middle cerebral artery ischemic Code(s): I63.9 - Cerebral infarction, unspecified Category: Medical Plan: Per recent CT, acute infarct in the right MCA territory. Atheromatous plaque involving both carotid bifurcations/internal carotid arteries. He was on aspirin/Plavix but considering his age and bleeding risk, stop Plavix and continue aspirin. We discussed about this today. (6) Vasovagal syncope: Code(s): R55 - Syncope and collapse Category: Medical Plan: Per prior cardiology records, he has had multiple syncopal events, suspect to be from some combination of vasovagal/orthostatic syncope. Recent hospital events noted. However, he is back to normal now. Medications: Discontinued clopidogrel Discontinued Reason: Doctor's Order 75 mg PO DAILY 90 tabs 1RF Coding Level of Care Code Est Pt Level 4 (92486) Diagnoses Atherosclerotic cardiovascular disease I25.10 Ischemic cardiomyopathy I25.5 Ventricular tachycardia I47.20 Presence of implantable cardioverter-defibrillator (ICD) Z95.810 CVA (cerebral vascular accident) I63.9 Vasovagal syncope R55
== END 2024-04-30 13:02 | disposition home or self-care (01) ==
PROVIDERS: PCP Internal Medicine; Visit Provider Internal Medicine
DX: I25.10 Atherosclerotic heart disease of native coronary artery without angina pectoris (principal); I25.5 Ischemic cardiomyopathy; I47.20 Ventricular tachycardia, unspecified; Z95.810 Presence of automatic (implantable) cardiac defibrillator; I63.9 Cerebral infarction, unspecified; R55 Syncope and collapse
CPT/HCPCS: 99214

== ENCOUNTER → 2024-04-30 12:20 | Outpatient (BNVA) | payer MEDICARE, OTHER, SELFPAY | PROVIDERS: PCP Internal Medicine; Visit Provider Internal Medicine | DX: I25.10 Atherosclerotic heart disease of native coronary artery without angina pectoris (principal); I25.5 Ischemic cardiomyopathy; I47.20 Ventricular tachycardia, unspecified; R55 Syncope and collapse; F17.210 Nicotine dependence, cigarettes, uncomplicated; Z95.810 Presence of automatic (implantable) cardiac defibrillator; Z86.73 Personal history of transient ischemic attack (TIA), and cerebral infarction without residual deficits | CPT/HCPCS: 99212 ==

== ENCOUNTER 2024-05-09 09:59 | Outpatient (AMB) | payer MEDICARE, OTHER, SELFPAY ==
--- NOTE | 2024-05-09 10:07 | MHC.OFFVIS ---
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 He had a period in time where he developed C diff colitis abdominal pain and complicated by pneumonia. He has since improved. When he was admitted to the [facility] he did undergo a CT scan of the chest ruling out PE but did find a pulmonary nodule in his right lung. But 6 mm in size. Had a repeat CT scan from month later and the nodule was still present. More recently he did have issues with hematuria. The sense improved, but, he did have a CT scan of the abdomen that demonstrated some of the lung windows did not go up to the level of the nodule. The patient has been having some coughing. The cough is usually associated with some mucus. [id number]-[id number] severity. He has been taking Mucinex with good effect. Otherwise is doing good no weight loss no night sweats no fatigue. 05/03/2023 the patient is here for pulmonary follow-up visit. Overall he is doing better from a respiratory status. He continues uses Trelegy inhaler all those very expensive for him. [facility] lot of money for the medication. Clinically the patient is doing better so will try to deescalate his respiratory therapy in hopes that he can find something more financially reasonable. He also has a pacemaker and apparently a cardiac arrhythmia that was concerning. The patient is scheduled to undergo a defibrillator at this time. His last CT scan of the chest was back in 2021 demonstrating emphysema and also interstitial lung disease. The pulmonary nodules were not seen. The patient has been complaining of a cough. The cough for the most part is nonproductive in nature. Likely upper airway cough syndrome. Will try using nasal therapy to try to minimize the postnasal drip. His pharynx appeared to be erythematous. There was 1 area that appeared to be little bit more pale. 11/07/2023 the patient is here for pulmonary follow-up visit. He is complaining of worsening cough. For the last about 4 weeks. Moderate severity. At times bringing up phlegm. He has been taking Mucinex with some partial improvement. He also continues on the Trelegy inhaler which appears to be affecting beneficial. He feels that he is positive having some allergies. He has not been using the Singulair. Does have significant nasal congestion and postnasal drip. No recent imaging studies to review. The patient has not had any allergy testing. On examination does have significant postnasal drip likely a component of sinusitis. 05/09/2024 the patient is here for pulmonary evaluation. Since the last time the patient was seen the patient had a fall apparently was a syncopal episode at home. He was in the bathroom and hit his head and was brought to the [facility] ED. He had a full workup there. He did have a CT scan of the chest without any significant trauma. Although again documented significant emphysema in addition to some fibrotic changes. I did personally review the CT scan compared to a CT scan the had back in 2021 in the fibrotic area in the right upper lobe looks full does not around about area but is concerning for the possibility of scar tumor. Therefore, because is not clear exactly what happened with them and because this area of scarring starting to become a little bit more denser than going to repeat the CT scan in 6 months. If the area becomes more concerning a PET scan will be warranted. In the meantime the patient continues on the Trelegy inhaler with good effect. He is also taking antihistamines for allergies. The medications are working well for him. The patient does have a rescue inhaler but he does not have to use it. Therefore this time will plan to repeat the CT scan in 6 months and follow-up at that time. [facility] Medical History (Updated 05/09/24 @ 12:54 by Ken Allen MD) Pulmonary fibrosis Colonic mass Allergies Dental abscess Dysphagia Elevated PSA Abrasion Bursitis of left shoulder Joint pain Effusion, left knee Prostate nodule Microscopic hematuria Bladder outlet obstruction Pes anserinus bursitis of right knee Effusion, right knee Ventricular tachycardia Ischemic cardiomyopathy Atherosclerotic cardiovascular disease Cardiomyopathy Pacemaker ILD (interstitial lung disease) Pulmonary nodules COPD (chronic obstructive pulmonary disease) Bursitis of right shoulder Medial meniscus tear Osteoarthritis of right knee Surgical History (Updated 04/25/24 @ 00:02 by Cesar Ponce) History of carpal tunnel release History of cholecystectomy History of tonsillectomy History of colonoscopy Family History (Updated 04/21/24 @ 09:25 by CHIO Augustin) Father No problems noted. Mother No problems noted. Son No problems noted. Social History Household Members: Spouse Housing: House Are you a primary laboratory animal care veterinarian to a significant other at home: No Do you presently have visiting nurse or other home services: No Alcohol intake: current Alcohol intake frequency: does not drink Alcohol type: beer Comment: once Q 3-6 month glass of wine Patient Tobacco Use Status: Former Tobacco user Tobacco use type: Cigarette Years Smoked: 30 years e-Cigarette/Vaping Use: Never Used Second Hand Smoke Exposure: Yes Advance Directives Date on File: 06/24/23 service: No Current occupational status: retired 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 Cognitive needs: No Hearing needs: Yes Vision needs: Yes Review of Systems Const Denies night sweats ENT Denies change in voice, Denies lip swelling, Denies mouth pain, Reports nasal congestion, Reports nasal discharge, Reports post nasal drip and Denies tongue swelling Card Denies chest pain Resp Denies change in phlegm color and Reports cough GI Denies abdominal pain Reports as per HPI Musc Reports arthralgias, Reports limited range of motion and Reports stiffness Neuro Denies Neuro-related abnormal movements Psych Denies no additional complaints Rod/Lymph Denies easy bleeding and Denies lymphadenopathy Aller/Immun Denies lip swelling and Denies tongue swelling Physical Exam Vital Signs: Last Vital Signs Pulse 90 05/09/24 10:10 BP 128/64 05/09/24 10:10 Pulse Ox 95 05/09/24 10:10 Oxygen Delivery Method Room Air 05/09/24 10:10 BMI result Body Mass Index 25.5 Const General: alert HEENT General nose exam: Abnormal external nose present and Nasal discharge present Throat: Yes posterior oropharynx abnormal, Yes postnasal drainage and Yes cobblestoning Eyes Pupils: Equal, round and reactive pupils present Neck Neck: Yes normal visual inspection, Yes full ROM and Yes no lymphadenopathy Chest Chest palpation & inspection: normal inspection of the chest Resp Auscultation: diminished lung sounds Cardio Rate: regular rate Rhythm: regular rhythm Heart sounds: S1 normal heart sound present and S2 normal heart sound present GI Palpation (GI): Soft to palpation and nontender Auscultation: normal bowel sounds General: Yes no CVA tenderness Back/Spine/Pelvis Back: no CVA tenderness Skin General skin exam: rashes and/or lesions noted Neuro Cranial nerves: Yes Equal, round and reactive pupils present Results Reviewed Results Reviewed: personally reviewed CT chest with RUL fibrotic changes worse with some fullness ?scar tumor Assessment & Plan Assessment & Plan (1) COPD (chronic obstructive pulmonary disease): Code(s): J44.9 - Chronic obstructive pulmonary disease, unspecified Category: Medical Qualifiers: COPD type: chronic bronchitis Chronic bronchitis type: simple Qualified Code(s): J41.0 - Simple chronic bronchitis (2) Pulmonary nodules: Code(s): R91.8 - Other nonspecific abnormal finding of lung field Category: Medical (3) Cough: Code(s): R05.9 - Cough, unspecified Category: Medical Qualifiers: Cough type: subacute Qualified Code(s): R05.2 - Subacute cough (4) Sinusitis: Code(s): J32.9 - Chronic sinusitis, unspecified Category: Medical Qualifiers: Chronicity: subacute Sinusitis location: unspecified location Qualified Code(s): J01.90 - Acute sinusitis, unspecified (5) Allergies: Code(s): T78.40XA - Allergy, unspecified, initial encounter Category: Medical Qualifiers: Encounter type: initial encounter Qualified Code(s): T78.40XA - Allergy, unspecified, initial encounter (6) ILD (interstitial lung disease): Code(s): J84.9 - Interstitial pulmonary disease, unspecified Category: Medical (7) Pulmonary fibrosis: Code(s): J84.10 - Pulmonary fibrosis, unspecified Category: Medical Plan continue Trelegy inhaler Singulair neti bottle with distilled water only fluticasone nasal spray repeat CT chest 6 months Follow-up in 6 months or sooner if no better Orders: Orders CT chest wo IV con 6 Months J84.10 - Pulmonary fibrosis, unspecified, J84.9 - Interstitial pulmonary disease, unspecified, R91.8 - Other nonspecific abnormal finding of lung field Coding Level of Care Code Est Pt Level 4 (39204) Complex EM visit Add On G2211 Diagnoses 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 COPD type: chronic bronchitis Chronic bronchitis type: simple Pulmonary nodules R91.8 Subacute cough R05.2 Cough type: subacute Subacute sinusitis, unspecified location J01.90 Chronicity: subacute Sinusitis location: unspecified location Allergy, initial encounter T78.40XA Encounter type: initial encounter ILD (interstitial lung disease) J84.9 Pulmonary fibrosis J84.10 Time Spent (min) 17
[2024-05-09 10:10] VITALS: BP 128/64; PULSE 90; O2SAT 95; BMI 25.5
== END 2024-05-09 10:33 | disposition home or self-care (01) ==
PROVIDERS: PCP Internal Medicine; Visit Provider Hospitalist
DX: J41.0 Simple chronic bronchitis (principal); R91.8 Other nonspecific abnormal finding of lung field; R05.2 Subacute cough; J01.90 Acute sinusitis, unspecified; T78.40XA Allergy, unspecified, initial encounter; J84.9 Interstitial pulmonary disease, unspecified; J84.10 Pulmonary fibrosis, unspecified
CPT/HCPCS: 99214; G2211

== ENCOUNTER → 2024-05-09 09:59 | Outpatient (BNVA) | payer MEDICARE, OTHER, SELFPAY | PROVIDERS: PCP Internal Medicine; Visit Provider Hospitalist | DX: J45.909 Unspecified asthma, uncomplicated (principal); J43.9 Emphysema, unspecified; J84.10 Pulmonary fibrosis, unspecified; J41.0 Simple chronic bronchitis; J01.90 Acute sinusitis, unspecified; R91.8 Other nonspecific abnormal finding of lung field; T78.40XA Allergy, unspecified, initial encounter | CPT/HCPCS: 99212 ==

== ENCOUNTER 2024-06-19 14:14 | Outpatient (AMB) | payer MEDICARE, OTHER, SELFPAY ==
--- NOTE | 2024-06-19 14:16 | A.OFFVIS_ITS ---
Vital Signs 06/19/24 14:25 Height 5 ft 6 in Weight 167 lb 15.876 oz BMI 27.1 BP 124/62 Blood Pressure Location Rt brachial Position Sitting Pulse 90 Pulse Source Pulse Oximeter Pulse Oximetry (%) 98 Oxygen Delivery Method Room Air Intake Visit Reasons: PMR Intake Note: Patient presents for PMR. Allergies No Known Allergies [No Known Allergies*] Allergy (Verified 06/19/24 14:19) Medication List - Last Reconciled 06/19/24 by Dulce Maria Portillo MD alendronate 70 mg PO QWEEK allopurinol 100 mg PO DAILY aspirin 81 mg PO DAILY atorvastatin 40 mg PO BEDTIME cholecalciferol (vitamin D3) 25 mcg PO DAILY luafxgcvxxk-mxuarvfhg-yjhnehik 200-62.5-25 mcg (Trelegy Ellipta) 1 inh inhalation DAILY 30 days loratadine (Claritin) 10 mg PO DAILY loratadine (Claritin) 10 mg PO DAILY montelukast (Singulair) 10 mg PO BEDTIME 30 days sacubitril-valsartan 49-51 mg (Entresto) 1 tab PO BID 90 days tamsulosin 0.4 mg PO BEDTIME 90 days HPI Comments Details: 83 yo M presents for follow-up of polymyalgia rheumatica and osteopenia. He was last seen 05/2023 Off prednisone for approximately since approximately July 2021. He denies any return of PMR symptoms. States that he feels great overall, apart from multiple dental infections recently that required multiple teeth removal a few days ago. Compliant with alendronate. Well tolerated. [facility] Medical History Pulmonary fibrosis Colonic mass Allergies Dental abscess Dysphagia Elevated PSA Abrasion Bursitis of left shoulder Joint pain Effusion, left knee Prostate nodule Microscopic hematuria Bladder outlet obstruction Pes anserinus bursitis of right knee Effusion, right knee Ventricular tachycardia Ischemic cardiomyopathy Atherosclerotic cardiovascular disease Cardiomyopathy Pacemaker ILD (interstitial lung disease) Pulmonary nodules COPD (chronic obstructive pulmonary disease) Bursitis of right shoulder Medial meniscus tear Osteoarthritis of right knee Surgical History History of carpal tunnel release History of cholecystectomy History of tonsillectomy History of colonoscopy Family History Father No problems noted. Mother No problems noted. Son No problems noted. Social History Household Members: Spouse Housing: House Are you a primary career services coordinator to a significant other at home: No Do you presently have visiting nurse or other home services: No Alcohol intake: current Alcohol intake frequency: does not drink Alcohol type: beer Comment: once Q 3-6 month glass of wine Patient Tobacco Use Status: Former Tobacco user Tobacco use type: Cigarette Years Smoked: 30 years e-Cigarette/Vaping Use: Never Used Second Hand Smoke Exposure: Yes Advance Directives Date on File: 06/24/23 service: No Current occupational status: retired 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 Cognitive needs: No Hearing needs: Yes Vision needs: Yes Review of Systems Musc Denies arthralgias, Denies joint swelling and Denies limited range of motion Physical Exam Vital Signs: Last Vital Signs Pulse 90 06/19/24 14:25 BP 124/62 06/19/24 14:25 Pulse Ox 98 06/19/24 14:25 Oxygen Delivery Method Room Air 06/19/24 14:25 BMI result Body Mass Index 27.1 Const General: cooperative, healthy appearing and comfortable Nutritional Appearance: overweight Orientation/consciousness: patient oriented x3 Limitations: no limitations HEENT Head: Yes normocephalic and Yes atraumatic Mouth: moist mucous membranes Resp Effort & Inspection: normal respiratory effort and able to speak in complete sentences Skin General skin exam: no rashes or lesions noted and dry skin Neuro General: patient oriented x3 Extrem Other: Osteoarthritic changes of both hands with no active synovitis Normal range of motion of hands without pain. Normal range of motion of knees and hips without pain. Assessment & Plan Assessment & Plan (1) Polymyalgia rheumatica: Comment: Initial presentation of bilateral shoulder pain.? Serology with markedly elevated ESR and CRP.? Started on 10 mg prednisone daily in September 2020 with dramatic response in his symptoms.? He has now successfully tapered off pr ednisone since 07/2021. No recurrence of PMR symptoms. Code(s): M35.3 - Polymyalgia rheumatica Category: Medical Plan: No recurrence of PMR symptoms. Reviewed with patient that it appears his polymyalgia rheumatica is in remission. He is aware to contact the clinic with any return of bilateral shoulder or hip girdle pain. Follow-up in 1 year (2) Cyclic citrullinated peptide (CCP) antibody positive: Code(s): R79.89 - Other specified abnormal findings of blood chemistry Category: Medical Plan: Weak positive.? In some instances, polymyalgia rheumatica can be an initial presentation of rheumatoid arthritis.? Patient has been off prednisone for almost 2 years with no synovitis. (3) Osteopenia: Comment: Long-term use of steroids. Bone density 09/2020 with osteopenia, but high FRAX score. Started on alendronate September 2020- present Code(s): M85.80 - Other specified disorders of bone density and structure, unspecified site Category: Medical Plan: DEXA from 10/03 with Osteopenia T-score -1.8 in the femoral neck.? Major osteoporotic fracture 16.1%.? Hip fracture 7.1%. Patient on Alendronate weekly started September 2020. Updated DEXA with osteopenia T-score -2.4 in the femoral neck.? Interval changes are not significant when compared to baseline.? DEXA is stable.? Vitamin-D is stable. Will continue alendronate. Continue calcium and vitamin-D. Repeat DEXA in fall of 2024 Plan I spent 26 minutes reviewing patient's chart, evaluating patient, counseling patient and documenting in the chart Orders: Orders XR DEXA axial skeleton 03/16/25 M81.0 - Age-related osteoporosis without current pathological fracture Medications: Changed From alendronate 70 mg PO FR To alendronate Take 1 tab once weekly, 1st thing in the morning, on an empty stomach, with a large glass of water (at least 6 oz) and stay upright for 30 minutes 70 mg PO QWEEK 12 tabs 3RF Coding Level of Care Code Est Pt Level 4 (21674) Diagnoses Polymyalgia rheumatica M35.3 Cyclic citrullinated peptide (CCP) antibody positive R79.89 Osteopenia M85.80
[2024-06-19 14:25] VITALS: BP 124/62; PULSE 90; O2SAT 98; BMI 27.1
== END 2024-06-19 14:47 | disposition home or self-care (01) ==
PROVIDERS: PCP Internal Medicine; Visit Provider Student in an Organized Health Care Education/Training Program
DX: M35.3 Polymyalgia rheumatica (principal); R79.89 Other specified abnormal findings of blood chemistry; M85.80 Other specified disorders of bone density and structure, unspecified site
CPT/HCPCS: 99214

== ENCOUNTER → 2024-06-19 14:14 | Outpatient (BNVA) | payer MEDICARE, OTHER, SELFPAY | PROVIDERS: PCP Internal Medicine; Visit Provider Student in an Organized Health Care Education/Training Program | DX: M35.3 Polymyalgia rheumatica (principal); M85.80 Other specified disorders of bone density and structure, unspecified site; R79.89 Other specified abnormal findings of blood chemistry | CPT/HCPCS: 99212 ==

== ENCOUNTER → 2024-06-24 23:59 | Outpatient (BNV) | payer MEDICARE, OTHER, SELFPAY ==
--- NOTE | 2024-06-24 13:05 | MHC.OFFVIS ---
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 Allergies No Known Allergies [No Known Allergies*] Allergy (Verified 06/19/24 14:19) COUNT INCLUDES THE [facility] Medical History Pulmonary fibrosis Colonic mass Allergies Dental abscess Dysphagia Elevated PSA Abrasion Bursitis of left shoulder Joint pain Effusion, left knee Prostate nodule Microscopic hematuria Bladder outlet obstruction Pes anserinus bursitis of right knee Effusion, right knee Ventricular tachycardia Ischemic cardiomyopathy Atherosclerotic cardiovascular disease Cardiomyopathy Pacemaker ILD (interstitial lung disease) Pulmonary nodules COPD (chronic obstructive pulmonary disease) Bursitis of right shoulder Medial meniscus tear Osteoarthritis of right knee Surgical History History of carpal tunnel release History of cholecystectomy History of tonsillectomy History of colonoscopy Family History Father No problems noted. Mother No problems noted. Son No problems noted. Social History Household Members: Spouse Housing: House Are you a primary healthcare analyst to a significant other at home: No Do you presently have visiting nurse or other home services: No Alcohol intake: current Alcohol intake frequency: does not drink Alcohol type: beer Comment: once Q 3-6 month glass of wine Patient Tobacco Use Status: Former Tobacco user Tobacco use type: Cigarette Years Smoked: 30 years e-Cigarette/Vaping Use: Never Used Second Hand Smoke Exposure: Yes Advance Directives Date on File: 06/24/23 service: No Current occupational status: retired 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 Cognitive needs: No Hearing needs: Yes Vision needs: Yes Office Procedures Cardiac Device Check Cardiac Device Check Details: Date of service 06/24/2024; Battery voltage 3.01V; normal lead parameters; AP 40%; no treated VT/VF; ; normal ICD function. [id number] Cardiac Interrogation, implant defibrillator w/interim Procedure code (CPT) selection complete Assessment & Plan Assessment & Plan (1) ICD (implantable cardioverter-defibrillator) in place: Code(s): Z95.810 - Presence of automatic (implantable) cardiac defibrillator Category: Medical (2) Ischemic cardiomyopathy: Code(s): I25.5 - Ischemic cardiomyopathy Category: Medical Plan x Coding Level of Care Code Procedure Only Diagnoses ICD (implantable cardioverter-defibrillator) in place Z95.810 Ischemic cardiomyopathy I25.5 CPT Codes Cardiac Device Check - Cardiac Device 13: [id number] Cardiac Interrogation, implant defibrillator w/interim ([id number])
== END ==
PROVIDERS: PCP Internal Medicine; Visit Provider Internal Medicine
DX: I25.5 Ischemic cardiomyopathy (principal); Z95.810 Presence of automatic (implantable) cardiac defibrillator
CPT/HCPCS: 93295

== ENCOUNTER 2024-07-21 10:32 | Outpatient (REF) | payer MEDICARE, OTHER, SELFPAY ==
--- NOTE | ~2024-07-21 | XR_ITS ---
EXAMINATION: XR CHEST CLINICAL INFORMATION: U07.1 - COVID-19 COMPARISON: Chest x-ray 2624. TECHNIQUE: 2 views of the chest were obtained. FINDINGS: The lungs are hyperinflated but clear of acute pneumonic process. The heart size and pulmonary vascularity is normal. There are dual pacer electrodes in right atrium and right ventricle. No gross bony abnormality seen. XR/XR chest 2V IMPRESSION: Unremarkable chest examination. Electronically signed by: Bryan Whittaker MD 07/21/2024 02:46 PM EST
[2024-07-21 13:42] LABS: MANUAL DIFF FLAG NO
[2024-07-21 14:04] LABS: Basophils Percent Auto 0.3 % (0-2); Eosinophils Absolute Auto 0.1 X10*3/uL (0.0-0.4); Eosinophils Percent Auto 1.7 % (0-4); Hematocrit 38.8 % (42.0-52.0); Hemoglobin 13.7 g/dl (14.0-18.0); Imm Gran Abs Auto 0.03 X10*3/uL (0.00-0.03); Imm Gran Pct Auto 0.4 % (0.0-0.4); Lymphocytes Absolute Auto 1.1 X10*3/uL (1.2-4.9); Lymphocytes Percent Auto 14.8 % (20-40); Mean Corpuscular HGB Conc 35.3 g/dl (31.0-36.0); Mean Corpuscular Hemoglobin 34.3 pg (27.0-33.0); Mean Platelet Volume 9.3 fL (9.4-12.4); Monocytes Absolute Auto 0.5 X10*3/uL (0.1-1.2); Monocytes Percent Auto 6.3 % (2-11); Neutrophils Absolute Auto 5.8 x10*3/uL (2.0-8.3); Neutrophils Percent Auto 76.5 % (45-73); Platelet Count 191 X10*3/uL (160-400); Red Cell Distribution Width 12.9 % (11.0-16.0); White Blood Count 7.6 X10*3/uL (4.8-10.8)
[2024-07-21 14:39] LABS: Appearance Urine Clear; Color Urine Yellow; Glucose Urine UA Negative (Negative); Leukocyte Esterase Urine Negative (Negative); Nitrite Urine Negative (Negative); PH 6.5 (5.0-9.0); Specific Gravity - Urine 1.015 (1.005-1.025); Urine Blood Negative (Negative); Urine Ketones Negative (Negative); Urine Protein Negative (Neg-Trace)
[2024-07-21 14:53] LABS: B Type Natriuretic Peptide 71 pg/mL (<100)
[2024-07-21 15:06] LABS: Alanine Aminotransferase 21 U/L (0-40); Albumin Level 3.8 g/dL (3.5-5.0); Anion Gap 12 (12-20); Aspartate Amino Transferase 24 U/L (5-37); Bilirubin Total 0.5 mg/dL (0.0-1.0); Blood Urea Nitrogen 10 mg/dL (9-16); Carbon Dioxide 26 mmol/L (22-29); Chloride 100 mmol/L (96-108); Cholesterol 111 mg/dL (<200); Estimated Glomerular Filt Rate > 60; Glucose Random 118 mg/dL (60-115); HDL Cholesterol 46 mg/dL (>40); Iron 68 mcg/dL (45-160); LDL Cholesterol Calculated 51 mg/dL (<100); Percent Iron Saturation 32 % (15-50); Potassium 4.2 mmol/L (3.3-5.1); Sodium 134 mmol/L (135-145); Total Iron Binding Capacity 215 mcg/dL (228-428); Total Protein 6.9 g/dL (6.5-8.0); Triglycerides 74 mg/dL (<150); Unsaturated Iron Binding 147 ug/dL
[2024-07-21 15:21] LABS: Alkaline Phosphatase 64 U/L (39-117)
[2024-07-21 15:24] LABS: Ferritin 151 ng/mL (20-250); Free T4 (Free Thyroxine) 1.14 ng/dL (0.71-1.85); Thyroid Stimulating Hormone 1.38 uIU/mL (0.32-4.0)
[2024-07-21 15:26] LABS: Vitamin B12 379 pg/mL (200-900)
== END 2024-07-21 10:33 | disposition home or self-care (01) ==
LOC: HO.XRAY 10:32
PROVIDERS: PCP Internal Medicine; Visit Provider Internal Medicine
DX: U07.1 COVID-19 (principal); E78.00 Pure hypercholesterolemia, unspecified; C61 Malignant neoplasm of prostate; R30.0 Dysuria; R73.02 Impaired glucose tolerance (oral); J84.10 Pulmonary fibrosis, unspecified
CPT/HCPCS: 36415; 71046; 80053; 80061; 81003; 82607; 82728; 82746; 83540; 83735; 83880; 84439; 84443; 85025; 96127; 99212

== ENCOUNTER 2024-07-21 10:34 | Outpatient (AMB) | payer MEDICARE, OTHER, SELFPAY ==
--- NOTE | 2024-07-21 10:35 | A.OFFPC_ITS ---
Vital Signs 07/21/24 10:36 Height 5 ft 6 in BP 124/62 Blood Pressure Location Lt brachial Position Sitting Pulse 92 Pulse Source Pulse Oximeter Pulse Oximetry (%) 91 L Oxygen Delivery Method Room Air Intake Visit Reasons: Check BP Allergies No Known Allergies [No Known Allergies*] Allergy (Verified 07/21/24 10:36) Tobacco use date assessed: 07/21/24 Fall risk assessment: No Falls in past year Last assessed Fall Risk: 07/21/24 Dental Screening Dental Screen Date: 07/21/24 Did you have a dental visit in the last 12 months?: Yes Did you have a dental problem in the last 6 months where you did not have access to dental care?: No Was dental information given to patient?: Patient has dentist HPI Check BP HPI Details The patient is a 83-year-old male presenting with [id number] fatigue and general weakness. The patient reports feeling weak with no energy, which significantly affects his daily activities. These symptoms intensified in the morning despite having a restful night's sleep, as experienced in the previous night. The patient mentions that his cough has subsided, with no chest tightness or shortness of breath. Other symptoms such as sore throat and ear pain are absent. The patient describes having gastrointestinal disturbances, noting slight diarrhea with runny stools, predominantly after taking cough medicine. He has been experiencing gas along with these episodes. Additionally, he reports feeling chilly at home, which he attributes to potential [id number] effects. He has a history of anemia, previously identified through blood work, and suspects this may be contributing to his current symptoms. The patient is also recovering from a recent dental procedure where he had seven teeth extracted, impacting his eating habits. He mentions experiencing hot flashes since undergoing prostate treatment, which occasionally interrupts his sleep. Overall, the primary issue appears to be severe fatigue [id number], with possible nutritional challenges following dental extractions, and anemia contributing to the overall feeling of weakness. [facility] Medical History Pulmonary fibrosis Colonic mass Allergies Dental abscess Dysphagia Elevated PSA Abrasion Bursitis of left shoulder Joint pain Effusion, left knee Prostate nodule Microscopic hematuria Bladder outlet obstruction Pes anserinus bursitis of right knee Effusion, right knee Ventricular tachycardia Ischemic cardiomyopathy Atherosclerotic cardiovascular disease Cardiomyopathy Pacemaker ILD (interstitial lung disease) Pulmonary nodules COPD (chronic obstructive pulmonary disease) Bursitis of right shoulder Medial meniscus tear Osteoarthritis of right knee Surgical History History of carpal tunnel release History of cholecystectomy History of tonsillectomy History of colonoscopy Family History Father No problems noted. Mother No problems noted. Son No problems noted. Social History Household Members: Spouse Housing: House Are you a primary date night caregiver to a significant other at home: No Do you presently have visiting nurse or other home services: No Alcohol intake: current Alcohol intake frequency: does not drink Alcohol type: beer Comment: once Q 3-6 month glass of wine Patient Tobacco Use Status: Former Tobacco user Tobacco use type: Cigarette Years Smoked: 30 years e-Cigarette/Vaping Use: Never Used Second Hand Smoke Exposure: Yes Advance Directives Date on File: 06/24/23 service: No Current occupational status: retired 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 Cognitive needs: No Hearing needs: Yes Vision needs: Yes Questionnaire PHQ-9 Over the last 2 weeks, how often have you been bothered by any of the following problems? 1. Little interest or pleasure in doing things: not at all 2. Feeling down, depressed, or hopeless: not at all 3. Trouble falling or staying asleep, or sleeping too much: not at all 4. Feeling tired or having little energy: not at all 5. Poor appetite or overeating: not at all 6. Feeling bad about yourself - or that you are a failure or have let yourself or your family down: not at all 7. Trouble concentrating on things, such as reading the newspaper or watching television: not at all 8. Moving or speaking so slowly that other people could have noticed. Or the opposite - being so fidgety or restless that you have been moving around a lot more than usual: not at all 9. Thoughts that you would be better off or of hurting yourself in some way: not at all Total score: 0 Source: Developed by Drs. Deacon Rod, Paulette Rose, Aurelio Lopez and colleagues, with an educational dell from [employer]. Thrive Questionnaire Date Thrive assessed: 04/15/24 CORINNE-7 AMB Questionnaire CORINNE-7 Date CORINNE - 7 assessed: 08/01/23 Source: Developed by Drs. Deacon Rod, Paulette Rose, Aurelio Lopez and colleagues, with an educational dell from [employer]. Physical exam (Primary Care) Vital Signs: Last Vital Signs Pulse 92 07/21/24 10:36 BP 124/62 07/21/24 10:36 Pulse Ox 91 L 07/21/24 10:36 Oxygen Delivery Method Room Air 07/21/24 10:36 Tobacco/Smoking Status: Tobacco use Status Tobacco use date assessed 07/21/24 07/21/24 10:38 Patient Tobacco Use Status Former Tobacco user 07/21/24 10:38 Tobacco use type Cigarette 07/21/24 10:38 e-Cigarette/Vaping Use Never Used 07/21/24 10:38 PHQ-9: PHQ-9 Score PHQ-9: Total score 0 07/21/24 10:38 Thrive Assessment: Date of Thrive Assessment Date Thrive assessed 04/15/24 07/21/24 10:38 Const General: alert; No acute distress Eyes Conjunctivae: conjunctivae normal Resp Other: basal crackles noted Cardio Rate: regular rate Rhythm: regular rhythm GI Inspection: Yes normal to inspection Extrem General: Yes normal to inspection and No edema Coding Level of Care Code Est Pt Level 3 (76598) Diagnoses COVID-19 virus infection U07.1 Pulmonary fibrosis J84.10 Prostate cancer C61 Assessment & Plan Assessment & Plan (1) COVID-19 virus infection: Comment: 07/16/2024 Code(s): U07.1 - COVID-19 Category: Medical Plan: with patient still coughing and having mild diarrhea, will work with chest xray and blood work (2) Pulmonary fibrosis: Code(s): J84.10 - Pulmonary fibrosis, unspecified Category: Medical Plan: will order for a chest xray (3) Prostate cancer: Comment: 04/05 High-grade, moderate volume, localized disease Initial therapy external beam radiation with [facility] August 2021 Code(s): C61 - Malignant neoplasm of prostate Category: Medical Plan: urinalysis advised Plan 1. - Advise maintaining adequate hydration and a balanced diet to support recovery from post-viral fatigue and aid in gastrointestinal function: - Monitor and manage hot flashes potentially related to prostate treatment; consider symptomatic treatment if necessary. - Encourage continuation of sleep hygiene practices to ensure sufficient rest and recovery. - Re-evaluate symptoms following completion of diagnostic tests; follow up with any significant findings that require further intervention. Orders: Orders Complete Blood Count Auto Diff Today U07.1 - COVID-19 IRON PROFILE Today U07.1 - COVID-19 UA CC w/rflx Micro + Cult Today C61 - Malignant neoplasm of prostate, R30.0 - Dysuria XR chest 2V Today U07.1 - COVID-19 Comprehensive Met. Panel Today U07.1 - COVID-19 Ferritin Today U07.1 - COVID-19 Magnesium Today U07.1 - COVID-19
[2024-07-21 10:36] VITALS: BP 124/62; PULSE 92; O2SAT 91
== END 2024-07-21 11:27 | disposition home or self-care (01) ==
PROVIDERS: PCP Internal Medicine; Visit Provider Internal Medicine
DX: U07.1 COVID-19 (principal); J84.10 Pulmonary fibrosis, unspecified; C61 Malignant neoplasm of prostate

== ENCOUNTER → 2024-07-21 13:46 | Outpatient (BNV) | payer MEDICARE, OTHER, SELFPAY | PROVIDERS: PCP Internal Medicine; Visit Provider Radiology Diagnostic Radiology | DX: U07.1 COVID-19 (principal) | CPT/HCPCS: 71046 ==

== ENCOUNTER 2024-07-25 13:26 | Outpatient (AMB) | payer MEDICARE, OTHER, SELFPAY ==
[2024-07-25 13:28] VITALS: BP 120/62; PULSE 82; O2SAT 94; BMI 26.7
--- NOTE | 2024-07-25 13:28 | MHC.PC.OV ---
Vital Signs 07/25/24 13:28 Height 5 ft 6 in Weight 165 lb 4 oz BMI 26.7 BP 120/62 Blood Pressure Location Lt brachial Position Sitting Pulse 82 Pulse Source Pulse Oximeter Pulse Oximetry (%) 94 Oxygen Delivery Method Room Air Intake Visit Reasons: Syncope, COPD coronary artery disease Enrolled Agent Required: No Accompanied by: Self / Same As Patient Allergies No Known Allergies [No Known Allergies*] Allergy (Verified 07/25/24 13:29) Tobacco use date assessed: 07/25/24 Fall risk assessment: No Falls in past year Last assessed Fall Risk: 07/25/24 Dental Screening Dental Screen Date: 07/25/24 Did you have a dental visit in the last 12 months?: Yes Did you have a dental problem in the last 6 months where you did not have access to dental care?: No Was dental information given to patient?: Patient has dentist HPI Syncope, COPD coronary artery disease HPI Details The patient is an 83-year-old male presenting with cough and fatigue. He has a history of Chronic Obstructive Pulmonary Disease (COPD) and a myocardial infarction approximately 30 years ago. The cough began recently, persisting for a few hours daily, particularly in the afternoon, and appears to be exacerbated by physical exertion. The patient reports feeling fatigued, which impairs his energy levels. He has a history of smoking for approximately 30 years, which ceased following his myocardial infarction. His ongoing management includes auap-vbt-[id number] cough remedies and maintaining proper hydration; however, the symptoms have persisted. Recent blood work indicated a mild anemia with a hemoglobin count slightly below the normal range. A recent chest x-ray revealed no abnormalities. He recently recovered from a COVID-19 infection, which has further impacted his respiratory condition. [facility] Medical History Pulmonary fibrosis Colonic mass Allergies Dental abscess Dysphagia Elevated PSA Abrasion Bursitis of left shoulder Joint pain Effusion, left knee Prostate nodule Microscopic hematuria Bladder outlet obstruction Pes anserinus bursitis of right knee Effusion, right knee Ventricular tachycardia Ischemic cardiomyopathy Atherosclerotic cardiovascular disease Cardiomyopathy Pacemaker ILD (interstitial lung disease) Pulmonary nodules COPD (chronic obstructive pulmonary disease) Bursitis of right shoulder Medial meniscus tear Osteoarthritis of right knee Surgical History History of carpal tunnel release History of cholecystectomy History of tonsillectomy History of colonoscopy Family History Father No problems noted. Mother No problems noted. Son No problems noted. Social History Household Members: Spouse Housing: House Are you a primary career coordinator to a significant other at home: No Do you presently have visiting nurse or other home services: No Alcohol intake: current Alcohol intake frequency: does not drink Alcohol type: beer Comment: once Q 3-6 month glass of wine Patient Tobacco Use Status: Former Tobacco user Tobacco use type: Cigarette Years Smoked: 30 years e-Cigarette/Vaping Use: Never Used Second Hand Smoke Exposure: Yes Advance Directives Date on File: 06/24/23 service: No Current occupational status: retired 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 Cognitive needs: No Hearing needs: Yes Vision needs: Yes Questionnaire PHQ-9 Over the last 2 weeks, how often have you been bothered by any of the following problems? 1. Little interest or pleasure in doing things: not at all 2. Feeling down, depressed, or hopeless: not at all 3. Trouble falling or staying asleep, or sleeping too much: not at all 4. Feeling tired or having little energy: not at all 5. Poor appetite or overeating: not at all 6. Feeling bad about yourself - or that you are a failure or have let yourself or your family down: not at all 7. Trouble concentrating on things, such as reading the newspaper or watching television: not at all 8. Moving or speaking so slowly that other people could have noticed. Or the opposite - being so fidgety or restless that you have been moving around a lot more than usual: not at all 9. Thoughts that you would be better off or of hurting yourself in some way: not at all Total score: 0 Source: Developed by Drs. Deacon Rod, Paulette Rose, Aurelio Lopez and colleagues, with an educational dell from [employer]. Thrive Questionnaire Date Thrive assessed: 07/25/24 I am a: Patient What is your living situation today?: I have a steady place to live Within the past 12 months, did the food you bought not last and you didn't have the money to get more?: Never true Within the past 12 months, did you worry whether your food would run out before you got money to buy more?: Never true Do you have trouble paying for medicines?: No Do you have trouble getting transportation to medical appointments?: No Do you have trouble paying your heating and electricity bill?: No Do you have trouble taking care of your child, family member or friend?: No Do you have trouble with day-to-day activities such as bathing, preparing meals, shopping, managing finances, etc.?: No Are you currently unemployed and looking for a job?: No Are you interested in more education?: No Please select the resources that you would like help with: None Currently or been in a relationship where the following occur: No concerns reported THRIVE Score: 0 AUDIT C Alcohol Use Questionnaire (AUDIT-C) 1. How often do you have a drink containing alcohol?: Never 3. How often do you have six or more drinks on one occasion?: Never Total Score: 0 CORINNE-7 AMB Questionnaire CORINNE-7 Date CROINNE - 7 assessed: 07/25/24 Feeling nervous, anxious, or on edge: 0 = Not at all Not being able to stop or control worryin = Not at all Worrying too much about different things: 0 = Not at all Trouble relaxin = Not at all Being so restless that it is hard to sit still: 0 = Not at all Becoming easily annoyed or irritable: 0 = Not at all Feeling afraid as if something awful might happen: 0 = Not at all Total CORINNE-7 score (0-4 normal; 5-9 mild; 10-14 moderate; 15-21 severe): 0 Source: Developed by Drs. Deacon Rod, Paulette Rose, Aurelio Lopez and colleagues, with an educational dell from [employer]. Physical exam (Primary Care) Vital Signs: Last Vital Signs Pulse 82 07/25/24 13:28 BP 120/62 07/25/24 13:28 Pulse Ox 94 07/25/24 13:28 Oxygen Delivery Method Room Air 07/25/24 13:28 BMI result Body Mass Index 26.7 Tobacco/Smoking Status: Tobacco use Status Tobacco use date assessed 07/25/24 07/25/24 13:33 Patient Tobacco Use Status Former Tobacco user 07/25/24 13:33 Tobacco use type Cigarette 07/25/24 13:33 e-Cigarette/Vaping Use Never Used 07/25/24 13:33 PHQ-9: PHQ-9 Score PHQ-9: Total score 0 07/25/24 13:33 Thrive Assessment: Date of Thrive Assessment Date Thrive assessed 07/25/24 07/25/24 13:33 Currently or been in a relationship where the following occur: No concerns reported Const General: alert; No acute distress Eyes Conjunctivae: conjunctivae normal Resp Auscultation: clear to auscultation bilaterally Cardio Rate: regular rate Rhythm: regular rhythm GI Inspection: Yes normal to inspection Extrem General: Yes normal to inspection and No edema Coding Level of Care Code Est Pt Level 4 (31138) Diagnoses COVID-19 virus infection U07.1 Hypertension I10 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 COPD type: chronic bronchitis Chronic bronchitis type: simple Hypoxemia R09.02 Assessment & Plan Assessment & Plan (1) COVID-19 virus infection: Comment: 07/16/2024 Code(s): U07.1 - COVID-19 Category: Medical (2) Hypertension: Code(s): I10 - Essential (primary) hypertension Category: Medical (3) COPD (chronic obstructive pulmonary disease): Code(s): J44.9 - Chronic obstructive pulmonary disease, unspecified Category: Medical Qualifiers: COPD type: chronic bronchitis Chronic bronchitis type: simple Qualified Code(s): J41.0 - Simple chronic bronchitis (4) Hypoxemia: Code(s): R09.02 - Hypoxemia Category: Medical Plan: noted on sitting down gets 93 O2 sat, on waling drops to 89 and going back to sit 93. calling Pulmonary for evaluation next 10:15am Plan - Advise patient on continued use of nzol-ypo-ueqitsl cough medicine primarily at night to aid rest. - Encourage dietary modifications to support increased energy levels. - Monitor anemia; recent hemoglobin levels are slightly below normal, suggest continued observation. - Recommend pulmonary assessment to address decreased oxygen saturation during exertion; consider supplemental oxygen therapy if symptoms persist. - Schedule a follow-up appointment with embedded hardware engineer Dr. Allen, as per available appointment on next at 10:15, to evaluate pulmonary function and need for further interventions based on COPD management. - Emphasize the patient to avoid fast foods and maintain proper hydration to support general health and energy recovery. - Provide support to monitor for any recurring respiratory infections and address proactively.
== END 2024-07-25 15:11 | disposition home or self-care (01) ==
PROVIDERS: PCP Internal Medicine; Visit Provider Internal Medicine
DX: U07.1 COVID-19 (principal); I10 Essential (primary) hypertension; J41.0 Simple chronic bronchitis; R09.02 Hypoxemia

== ENCOUNTER → 2024-07-25 13:26 | Outpatient (BNVA) | payer MEDICARE, OTHER, SELFPAY | PROVIDERS: PCP Internal Medicine; Visit Provider Internal Medicine | DX: U07.1 COVID-19 (principal); I10 Essential (primary) hypertension; J41.0 Simple chronic bronchitis; R06.02 Shortness of breath; R09.02 Hypoxemia | CPT/HCPCS: 99212 ==

== ENCOUNTER 2024-07-31 10:01 | Outpatient (AMB) | payer MEDICARE, OTHER, SELFPAY ==
[2024-07-31 10:10] VITALS: BP 100/52; PULSE 105; O2SAT 91
--- NOTE | 2024-07-31 10:10 | A.OFFVIS_ITS ---
Vital Signs 07/31/24 10:10 Weight 166 lb 7.184 oz BP 100/52 L Blood Pressure Location Lt brachial Position Sitting Pulse 105 H Pulse Source Pulse Oximeter Pulse Oximetry (%) 91 L Oxygen Delivery Method Room Air Intake Visit Reasons: post covid Allergies No Known Allergies [No Known Allergies*] Allergy (Verified 07/31/24 10:16) Medication List - Last Reconciled 07/31/24 by Angelique Hernandez LPN alendronate 70 mg PO QWEEK allopurinol 100 mg PO DAILY aspirin 81 mg PO DAILY atorvastatin 40 mg PO BEDTIME cholecalciferol (vitamin D3) 25 mcg PO DAILY axcepntisot-qudslrtts-xyifevhm 200-62.5-25 mcg (Trelegy Ellipta) 1 inh inhalation DAILY 30 days loratadine (Claritin) 10 mg PO DAILY loratadine (Claritin) 10 mg PO DAILY montelukast (Singulair) 10 mg PO BEDTIME 30 days sacubitril-valsartan 49-51 mg (Entresto) 1 tab PO BID 90 days tamsulosin 0.4 mg PO BEDTIME 90 days HPI Comments Details: The patient is a 83-year-old gentleman known COPD not in any respiratory therapy at this time. He had a period in time where he developed C diff colitis abdominal pain and complicated by pneumonia. He has since improved. When he was admitted to the [facility] he did undergo a CT scan of the chest ruling out PE but did find a pulmonary nodule in his right lung. But 6 mm in size. Had a repeat CT scan from month later and the nodule was still present. More recently he did have issues with hematuria. The sense improved, but, he did have a CT scan of the abdomen that demonstrated some of the lung windows did not go up to the level of the nodule. The patient has been having some coughing. The cough is usually associated with some mucus. [id number] severity. He has been taking Mucinex with good effect. Otherwise is doing good no weight loss no night sweats no fatigue. 05/03/2023 the patient is here for pulmonary follow-up visit. Overall he is doing better from a respiratory status. He continues uses Trelegy inhaler all those very expensive for him. Last year he went on [facility] to pale lot of money for the medication. Clinically the patient is doing better so will try to deescalate his respiratory therapy in hopes that he can find something more financially reasonable. He also has a pacemaker and apparently a cardiac arrhythmia that was concerning. The patient is scheduled to undergo a defibrillator at this time. His last CT scan of the chest was back in 2021 demonstrating emphysema and also interstitial lung disease. The pulmonary nodules were not seen. The patient has been complaining of a cough. The cough for the most part is nonproductive in nature. Likely upper airway cough syndrome. Will try using nasal therapy to try to minimize the postnasal drip. His pharynx appeared to be erythematous. There was 1 area that appeared to be little bit more pale. 11/07/2023 the patient is here for pulmonary follow-up visit. He is complaining of worsening cough. For the last about 4 weeks. Moderate severity. At times bringing up phlegm. He has been taking Mucinex with some partial improvement. He also continues on the Trelegy inhaler which appears to be affecting beneficial. He feels that he is positive having some allergies. He has not been using the Singulair. Does have significant nasal congestion and postnasal drip. No recent imaging studies to review. The patient has not had any allergy testing. On examination does have significant postnasal drip likely a component of sinusitis. 05/09/2024 the patient is here for pulmonary evaluation. Since the last time the patient was seen the patient had a fall apparently was a syncopal episode at home. He was in the bathroom and hit his head and was brought to the [facility] ED. He had a full workup there. He did have a CT scan of the chest without any significant trauma. Although again documented significant emphysema in addition to some fibrotic changes. I did personally review the CT scan compared to a CT scan the had back in 2021 in the fibrotic area in the right upper lobe looks full does not around about area but is concerning for the possibility of scar tumor. Therefore, because is not clear exactly what happened with them and because this area of scarring starting to become a little bit more denser than going to repeat the CT scan in 6 months. If the area becomes more concerning a PET scan will be warranted. In the meantime the patient continues on the Trelegy inhaler with good effect. He is also taking antihistamines for allergies. The medications are working well for him. The patient does have a rescue inhaler but he does not have to use it. Therefore this time will plan to repeat the CT scan in 6 months and follow-up at that time. 07/31/2024 the patient is here for a sick visit. Apparently back in June he was sick with COVID. Afterwards she felt sick tired in had this nagging cough. At times productive but for the most part just hacky. He has been taking naps in the afternoon because of the fatigue. He did have a chest x-ray back on the sick. I did look at it and I compared to his x-ray from before. Seems to have some degree of hazy opacity throughout suggesting some degree of pneumonitis. We did go for brief walking oximetry the patient desaturated down to about 92% but did not qualify for oxygen which is reassuring. He did complaint of dyspnea about 4/10. He goes for walks daily with his dog. Based on the x-ray findings will go ahead and treat him for bronchitis. Also treat him with some steroids for the pneumonitis component. Likely that the COVID resulted in some residual airway inflammation and some pneumonitis. But the medicines should help. Will follow-up in couple months. If he is getting any worse or any concerning issues he should call for an earlier assessment. [facility] Medical History Pulmonary fibrosis Colonic mass Allergies Dental abscess Dysphagia Elevated PSA Abrasion Bursitis of left shoulder Joint pain Effusion, left knee Prostate nodule Microscopic hematuria Bladder outlet obstruction Pes anserinus bursitis of right knee Effusion, right knee Ventricular tachycardia Ischemic cardiomyopathy Atherosclerotic cardiovascular disease Cardiomyopathy Pacemaker ILD (interstitial lung disease) Pulmonary nodules COPD (chronic obstructive pulmonary disease) Bursitis of right shoulder Medial meniscus tear Osteoarthritis of right knee Surgical History History of carpal tunnel release History of cholecystectomy History of tonsillectomy History of colonoscopy Family History Father No problems noted. Mother No problems noted. Son No problems noted. Social History Household Members: Spouse Housing: House Are you a primary healthcare business analyst to a significant other at home: No Do you presently have visiting nurse or other home services: No Alcohol intake: current Alcohol intake frequency: does not drink Alcohol type: beer Comment: once Q 3-6 month glass of wine Patient Tobacco Use Status: Former Tobacco user Tobacco use type: Cigarette Years Smoked: 30 years e-Cigarette/Vaping Use: Never Used Second Hand Smoke Exposure: Yes Advance Directives Date on File: 06/24/23 service: No Current occupational status: retired 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 Cognitive needs: No Hearing needs: Yes Vision needs: Yes Review of Systems Const Denies night sweats ENT Denies change in voice, Denies lip swelling, Denies mouth pain, Reports nasal congestion, Reports nasal discharge, Reports post nasal drip and Denies tongue swelling Card Denies chest pain and Reports dyspnea on exertion Resp Denies change in phlegm color, Reports chest congestion, Reports cough and Reports dyspnea on exertion GI Denies abdominal pain Reports as per HPI Musc Reports arthralgias, Reports limited range of motion and Reports stiffness Neuro Denies Neuro-related abnormal movements Psych Denies no additional complaints Rod/Lymph Denies easy bleeding and Denies lymphadenopathy Aller/Immun Denies lip swelling and Denies tongue swelling Physical Exam Vital Signs: Last Vital Signs Pulse 105 H 07/31/24 10:10 BP 100/52 L 07/31/24 10:10 Pulse Ox 91 L 07/31/24 10:10 Oxygen Delivery Method Room Air 07/31/24 10:10 Const General: alert HEENT General nose exam: Abnormal external nose present and Nasal discharge present Throat: Yes posterior oropharynx abnormal, Yes postnasal drainage and Yes cobblestoning Eyes Pupils: Equal, round and reactive pupils present Neck Neck: Yes normal visual inspection, Yes full ROM and Yes no lymphadenopathy Chest Chest palpation & inspection: normal inspection of the chest Resp Auscultation: crackles and diminished lung sounds Cardio Rate: regular rate Rhythm: regular rhythm Heart sounds: S1 normal heart sound present and S2 normal heart sound present GI Palpation (GI): Soft to palpation and nontender Auscultation: normal bowel sounds General: Yes no CVA tenderness Back/Spine/Pelvis Back: no CVA tenderness Skin General skin exam: rashes and/or lesions noted Neuro Cranial nerves: Yes Equal, round and reactive pupils present Assessment & Plan Assessment & Plan (1) COPD (chronic obstructive pulmonary disease): Code(s): J44.9 - Chronic obstructive pulmonary disease, unspecified Category: Medical Qualifiers: COPD type: chronic bronchitis Chronic bronchitis type: simple Qualified Code(s): J41.0 - Simple chronic bronchitis (2) Pulmonary nodules: Code(s): R91.8 - Other nonspecific abnormal finding of lung field Category: Medical (3) Cough: Code(s): R05.9 - Cough, unspecified Category: Medical Qualifiers: Cough type: subacute Qualified Code(s): R05.2 - Subacute cough (4) Allergies: Code(s): T78.40XA - Allergy, unspecified, initial encounter Category: Medical Qualifiers: Encounter type: initial encounter Qualified Code(s): T78.40XA - Allergy, unspecified, initial encounter (5) ILD (interstitial lung disease): Code(s): J84.9 - Interstitial pulmonary disease, unspecified Category: Medical (6) Pulmonary fibrosis: Code(s): J84.10 - Pulmonary fibrosis, unspecified Category: Medical (7) COVID-19 virus infection: Comment: 07/16/2024 Code(s): U07.1 - COVID-19 Category: Medical Plan start Medrol start doxycycline benzonates as needed continue Trelegy inhaler Singulair neti bottle with distilled water only fluticasone nasal spray Follow-up in 6-8 weeks Medications: New benzonatate 200 mg PO BID PRN 60 caps 3RF cough 30 days methylprednisolone (Medrol (Da)) PO PER PKG DIR 21 ea 0RF 6 days doxycycline hyclate 100 mg PO BID 20 caps 0RF 10 days Coding Level of Care Code Est Pt Level 4 (64305) Complex EM visit Add On G2211 Diagnoses 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 COPD type: chronic bronchitis Chronic bronchitis type: simple Pulmonary nodules R91.8 Subacute cough R05.2 Cough type: subacute Allergy, initial encounter T78.40XA Encounter type: initial encounter ILD (interstitial lung disease) J84.9 Pulmonary fibrosis J84.10 COVID-19 virus infection U07.1 Time Spent (min) 17
== END 2024-07-31 10:40 | disposition home or self-care (01) ==
PROVIDERS: PCP Internal Medicine; Visit Provider Hospitalist
DX: J41.0 Simple chronic bronchitis (principal); R91.8 Other nonspecific abnormal finding of lung field; J84.9 Interstitial pulmonary disease, unspecified; J84.10 Pulmonary fibrosis, unspecified; U07.1 COVID-19
CPT/HCPCS: 99214; G2211

== ENCOUNTER → 2024-07-31 10:01 | Outpatient (BNVA) | payer MEDICARE, OTHER, SELFPAY | PROVIDERS: PCP Internal Medicine; Visit Provider Hospitalist | DX: J41.0 Simple chronic bronchitis (principal); J84.9 Interstitial pulmonary disease, unspecified; J84.10 Pulmonary fibrosis, unspecified; R91.8 Other nonspecific abnormal finding of lung field; T78.40XA Allergy, unspecified, initial encounter; X58.XXXA Exposure to other specified factors, initial encounter; Y93.9 Activity, unspecified; Y92.9 Unspecified place or not applicable; Y99.9 Unspecified external cause status; Z86.16 Personal history of COVID-19 | CPT/HCPCS: 99212 ==

== ENCOUNTER → 2024-08-12 23:59 | Outpatient (BNV) | payer MEDICARE, OTHER, SELFPAY ==
--- NOTE | 2024-08-17 11:46 | A.OFFVIS_ITS ---
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 Allergies No Known Allergies [No Known Allergies*] Allergy (Verified 07/31/24 10:16) [facility] Medical History Pulmonary fibrosis Colonic mass Allergies Dental abscess Dysphagia Elevated PSA Abrasion Bursitis of left shoulder Joint pain Effusion, left knee Prostate nodule Microscopic hematuria Bladder outlet obstruction Pes anserinus bursitis of right knee Effusion, right knee Ventricular tachycardia Ischemic cardiomyopathy Atherosclerotic cardiovascular disease Cardiomyopathy Pacemaker ILD (interstitial lung disease) Pulmonary nodules COPD (chronic obstructive pulmonary disease) Bursitis of right shoulder Medial meniscus tear Osteoarthritis of right knee Surgical History History of carpal tunnel release History of cholecystectomy History of tonsillectomy History of colonoscopy Family History Father No problems noted. Mother No problems noted. Son No problems noted. Social History Household Members: Spouse Housing: House Are you a primary day care provider to a significant other at home: No Do you presently have visiting nurse or other home services: No Alcohol intake: current Alcohol intake frequency: does not drink Alcohol type: beer Comment: once Q 3-6 month glass of wine Patient Tobacco Use Status: Former Tobacco user Tobacco use type: Cigarette Years Smoked: 30 years e-Cigarette/Vaping Use: Never Used Second Hand Smoke Exposure: Yes Advance Directives Date on File: 06/24/23 service: No Current occupational status: retired 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 Cognitive needs: No Hearing needs: Yes Vision needs: Yes Office Procedures Cardiac Device Check Cardiac Device Check Details: Date of service- 08/12/2024; based on impedance data and physiological variables, there is no evidence of worsening congestive heart failure. [id number] Cardiac Device Interrogation, cardio physiologic monitor Procedure code (CPT) selection complete Assessment & Plan Assessment & Plan (1) Presence of implantable cardioverter-defibrillator (ICD): Code(s): Z95.810 - Presence of automatic (implantable) cardiac defibrillator Category: Surgical (2) Ischemic cardiomyopathy: Code(s): I25.5 - Ischemic cardiomyopathy Category: Medical Plan x Coding Level of Care Code Procedure Only Diagnoses Presence of implantable cardioverter-defibrillator (ICD) Z95.810 Ischemic cardiomyopathy I25.5 CPT Codes Cardiac Device Check - Cardiac Device 15: [id number] Cardiac Device Interrogation, cardio physiologic monitor ([id number])
== END ==
PROVIDERS: PCP Internal Medicine; Visit Provider Internal Medicine
DX: I25.5 Ischemic cardiomyopathy (principal); Z95.810 Presence of automatic (implantable) cardiac defibrillator
CPT/HCPCS: 93297

== ENCOUNTER → 2024-08-21 23:59 | Outpatient (BNV) | payer MEDICARE, OTHER, SELFPAY ==
--- NOTE | 2024-08-26 14:55 | A.OFFVIS_ITS ---
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 Allergies No Known Allergies [No Known Allergies*] Allergy (Verified 07/31/24 10:16) [facility] Medical History Pulmonary fibrosis Colonic mass Allergies Dental abscess Dysphagia Elevated PSA Abrasion Bursitis of left shoulder Joint pain Effusion, left knee Prostate nodule Microscopic hematuria Bladder outlet obstruction Pes anserinus bursitis of right knee Effusion, right knee Ventricular tachycardia Ischemic cardiomyopathy Atherosclerotic cardiovascular disease Cardiomyopathy Pacemaker ILD (interstitial lung disease) Pulmonary nodules COPD (chronic obstructive pulmonary disease) Bursitis of right shoulder Medial meniscus tear Osteoarthritis of right knee Surgical History History of carpal tunnel release History of cholecystectomy History of tonsillectomy History of colonoscopy Family History Father No problems noted. Mother No problems noted. Son No problems noted. Social History Household Members: Spouse Housing: House Are you a primary career resource specialist to a significant other at home: No Do you presently have visiting nurse or other home services: No Alcohol intake: current Alcohol intake frequency: does not drink Alcohol type: beer Comment: once Q 3-6 month glass of wine Patient Tobacco Use Status: Former Tobacco user Tobacco use type: Cigarette Years Smoked: 30 years e-Cigarette/Vaping Use: Never Used Second Hand Smoke Exposure: Yes Advance Directives Date on File: 06/24/23 service: No Current occupational status: retired 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 Cognitive needs: No Hearing needs: Yes Vision needs: Yes Office Procedures Cardiac Device Check Cardiac Device Check Details: Date of service 08/21/2024; Battery voltage 3V; no treated VT/VF; AP 42%, INTERNAL MEDICINE NURSE PRACTITIONER 0%; normal ICD function. [id number] Cardiac Interrogation, implant defibrillator w/interim Procedure code (CPT) selection complete Assessment & Plan Assessment & Plan (1) Presence of implantable cardioverter-defibrillator (ICD): Code(s): Z95.810 - Presence of automatic (implantable) cardiac defibrillator Category: Surgical (2) Ischemic cardiomyopathy: Code(s): I25.5 - Ischemic cardiomyopathy Category: Medical (3) Ventricular tachycardia: Code(s): I47.20 - Ventricular tachycardia, unspecified Category: Medical Plan x Coding Level of Care Code Procedure Only Diagnoses Presence of implantable cardioverter-defibrillator (ICD) Z95.810 Ischemic cardiomyopathy I25.5 Ventricular tachycardia I47.20 CPT Codes Cardiac Device Check - Cardiac Device 13: [id number] Cardiac Interrogation, implant defibrillator w/interim ([id number])
== END ==
PROVIDERS: PCP Internal Medicine; Visit Provider Internal Medicine
DX: I25.5 Ischemic cardiomyopathy (principal); I47.20 Ventricular tachycardia, unspecified; Z95.810 Presence of automatic (implantable) cardiac defibrillator
CPT/HCPCS: 93295

== ENCOUNTER → 2024-09-22 23:59 | Outpatient (BNV) | payer MEDICARE, OTHER, SELFPAY ==
--- NOTE | 2024-10-06 08:50 | A.OFFVIS_ITS ---
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 Allergies No Known Allergies [No Known Allergies*] Allergy (Verified 09/25/24 13:23) [facility] Medical History Pulmonary fibrosis Colonic mass Allergies Dental abscess Dysphagia Elevated PSA Abrasion Bursitis of left shoulder Joint pain Effusion, left knee Prostate nodule Microscopic hematuria Bladder outlet obstruction Pes anserinus bursitis of right knee Effusion, right knee Ventricular tachycardia Ischemic cardiomyopathy Atherosclerotic cardiovascular disease Cardiomyopathy Pacemaker ILD (interstitial lung disease) Pulmonary nodules COPD (chronic obstructive pulmonary disease) Bursitis of right shoulder Medial meniscus tear Osteoarthritis of right knee Surgical History History of carpal tunnel release History of cholecystectomy History of tonsillectomy History of colonoscopy Family History Father No problems noted. Mother No problems noted. Son No problems noted. Social History Household Members: Spouse Housing: House Are you a primary primary care nurse practitioner to a significant other at home: No Do you presently have visiting nurse or other home services: No Alcohol intake: current Alcohol intake frequency: does not drink Alcohol type: beer Comment: once Q 3-6 month glass of wine Patient Tobacco Use Status: Former Tobacco user Tobacco use type: Cigarette Years Smoked: 30 years e-Cigarette/Vaping Use: Never Used Second Hand Smoke Exposure: Yes Advance Directives Date on File: 06/24/23 service: No Current occupational status: retired 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 Cognitive needs: No Hearing needs: Yes Vision needs: Yes Office Procedures Cardiac Device Check Cardiac Device Check Details: Date of service- 09/22/2024; based on impedance data and physiological variables, there is no evidence of worsening congestive heart failure. [id number] Cardiac Device Interrogation, cardio physiologic monitor Procedure code (CPT) selection complete Assessment & Plan Assessment & Plan (1) Ischemic cardiomyopathy: Code(s): I25.5 - Ischemic cardiomyopathy Category: Medical (2) ICD (implantable cardioverter-defibrillator) in place: Code(s): Z95.810 - Presence of automatic (implantable) cardiac defibrillator Category: Medical Plan x Coding Level of Care Code Procedure Only Diagnoses Ischemic cardiomyopathy I25.5 ICD (implantable cardioverter-defibrillator) in place Z95.810 CPT Codes Cardiac Device Check - Cardiac Device 15: [id number] Cardiac Device Interrogation, cardio physiologic monitor ([id number])
== END ==
PROVIDERS: PCP Internal Medicine; Visit Provider Internal Medicine
DX: I25.5 Ischemic cardiomyopathy (principal); Z95.810 Presence of automatic (implantable) cardiac defibrillator
CPT/HCPCS: 93297

== ENCOUNTER → 2024-09-23 23:59 | Outpatient (BNV) | payer MEDICARE, OTHER, SELFPAY ==
--- NOTE | 2024-09-24 19:02 | A.OFFVIS_ITS ---
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 Allergies No Known Allergies [No Known Allergies*] Allergy (Verified 07/31/24 10:16) [facility] Medical History Pulmonary fibrosis Colonic mass Allergies Dental abscess Dysphagia Elevated PSA Abrasion Bursitis of left shoulder Joint pain Effusion, left knee Prostate nodule Microscopic hematuria Bladder outlet obstruction Pes anserinus bursitis of right knee Effusion, right knee Ventricular tachycardia Ischemic cardiomyopathy Atherosclerotic cardiovascular disease Cardiomyopathy Pacemaker ILD (interstitial lung disease) Pulmonary nodules COPD (chronic obstructive pulmonary disease) Bursitis of right shoulder Medial meniscus tear Osteoarthritis of right knee Surgical History History of carpal tunnel release History of cholecystectomy History of tonsillectomy History of colonoscopy Family History Father No problems noted. Mother No problems noted. Son No problems noted. Social History Household Members: Spouse Housing: House Are you a primary wound care center consultant to a significant other at home: No Do you presently have visiting nurse or other home services: No Alcohol intake: current Alcohol intake frequency: does not drink Alcohol type: beer Comment: once Q 3-6 month glass of wine Patient Tobacco Use Status: Former Tobacco user Tobacco use type: Cigarette Years Smoked: 30 years e-Cigarette/Vaping Use: Never Used Second Hand Smoke Exposure: Yes Advance Directives Date on File: 06/24/23 service: No Current occupational status: retired 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 Cognitive needs: No Hearing needs: Yes Vision needs: Yes Office Procedures Cardiac Device Check Cardiac Device Check Details: Date of service- 09/23/2024; based on impedance data and physiological variables, there is no evidence of worsening congestive heart failure. [id number] Cardiac Device Interrogation, cardio physiologic monitor Procedure code (CPT) selection complete Assessment & Plan Assessment & Plan (1) Presence of implantable cardioverter-defibrillator (ICD): Code(s): Z95.810 - Presence of automatic (implantable) cardiac defibrillator Category: Surgical (2) Ischemic cardiomyopathy: Code(s): I25.5 - Ischemic cardiomyopathy Category: Medical Plan x Coding Level of Care Code Procedure Only Diagnoses Presence of implantable cardioverter-defibrillator (ICD) Z95.810 Ischemic cardiomyopathy I25.5 CPT Codes Cardiac Device Check - Cardiac Device 15: [id number] Cardiac Device Interrogation, cardio physiologic monitor ([id number])
== END ==
PROVIDERS: PCP Internal Medicine; Visit Provider Internal Medicine
DX: I25.5 Ischemic cardiomyopathy (principal); Z95.810 Presence of automatic (implantable) cardiac defibrillator
CPT/HCPCS: 93297

== ENCOUNTER 2024-09-25 13:04 | Outpatient (AMB) | payer MEDICARE, OTHER, SELFPAY ==
[2024-09-25 13:20] VITALS: BP 110/58; PULSE 84; O2SAT 93; BMI 26.9
--- NOTE | 2024-09-25 13:20 | A.OFFVIS_ITS ---
Vital Signs 09/25/24 13:20 Height 5 ft 6 in Weight 166 lb 7.184 oz BMI 26.9 BP 110/58 L Blood Pressure Location Rt brachial Position Sitting Pulse 84 Pulse Source Pulse Oximeter Pulse Oximetry (%) 93 Oxygen Delivery Method Room Air Intake Visit Reasons: Post Covid Allergies No Known Allergies [No Known Allergies*] Allergy (Verified 09/25/24 13:23) HPI Comments Details: The patient is a 83-year-old gentleman known COPD not in any respiratory therapy at this time. He had a period in time where he developed C diff colitis abdominal pain and complicated by pneumonia. He has since improved. When he was admitted to the [facility] he did undergo a CT scan of the chest ruling out PE but did find a pulmonary nodule in his right lung. But 6 mm in size. Had a repeat CT scan from month later and the nodule was still present. More recently he did have issues with hematuria. The sense improved, but, he did have a CT scan of the abdomen that demonstrated some of the lung windows did not go up to the level of the nodule. The patient has been having some coughing. The cough is usually associated with some mucus. Qnsf-ho-qclmmikg severity. He has been taking Mucinex with good effect. Otherwise is doing good no weight loss no night sweats no fatigue. 05/03/2023 the patient is here for pulmonary follow-up visit. Overall he is doing better from a respiratory status. He continues uses Trelegy inhaler all those very expensive for him. [facility] the medication. Clinically the patient is doing better so will try to deescalate his respiratory therapy in hopes that he can find something more financially reasonable. He also has a pacemaker and apparently a cardiac arrhythmia that was concerning. The patient is scheduled to undergo a defibrillator at this time. His last CT scan of the chest was back in 2021 demonstrating emphysema and also interstitial lung disease. The pulmonary nodules were not seen. The patient has been complaining of a cough. The cough for the most part is nonproductive in nature. Likely upper airway cough syndrome. Will try using nasal therapy to try to minimize the postnasal drip. His pharynx appeared to be erythematous. There was 1 area that appeared to be little bit more pale. 11/07/2023 the patient is here for pulmonary follow-up visit. He is complaining of worsening cough. For the last about 4 weeks. Moderate severity. At times bringing up phlegm. He has been taking Mucinex with some partial improvement. He also continues on the Trelegy inhaler which appears to be affecting beneficial. He feels that he is positive having some allergies. He has not been using the Singulair. Does have significant nasal congestion and postnasal drip. No recent imaging studies to review. The patient has not had any allergy testing. On examination does have significant postnasal drip likely a component of sinusitis. 05/09/2024 the patient is here for pulmonary evaluation. Since the last time the patient was seen the patient had a fall apparently was a syncopal episode at home. He was in the bathroom and hit his head and was brought to the [facility] ED. He had a full workup there. He did have a CT scan of the chest without any significant trauma. Although again documented significant emphysema in addition to some fibrotic changes. I did personally review the CT scan compared to a CT scan the had back in 2021 in the fibrotic area in the right upper lobe looks full does not around about area but is concerning for the possibility of scar tumor. Therefore, because is not clear exactly what happened with them and because this area of scarring starting to become a little bit more denser than going to repeat the CT scan in 6 months. If the area becomes more concerning a PET scan will be warranted. In the meantime the patient continues on the Trelegy inhaler with good effect. He is also taking antihistamines for allergies. The medications are working well for him. The patient does have a rescue inhaler but he does not have to use it. Therefore this time will plan to repeat the CT scan in 6 months and follow-up at that time. 07/31/2024 the patient is here for a sick visit. Apparently back in June he was sick with COVID. Afterwards she felt sick tired in had this nagging cough. At times productive but for the most part just hacky. He has been taking naps in the afternoon because of the fatigue. He did have a chest x-ray back on the sick. I did look at it and I compared to his x-ray from before. Seems to have some degree of hazy opacity throughout suggesting some degree of pneumonitis. We did go for brief walking oximetry the patient desaturated down to about 92% but did not qualify for oxygen which is reassuring. He did complaint of dyspnea about 4/10. He goes for walks daily with his dog. Based on the x-ray findings will go ahead and treat him for bronchitis. Also treat him with some steroids for the pneumonitis component. Likely that the COVID resulted in some residual airway inflammation and some pneumonitis. But the medicines should help. Will follow-up in couple months. If he is getting any worse or any concerning issues he should call for an earlier assessment. 09/25/2024 the patient is here for a pulmonary follow-up visit. Overall he is back to his baseline. His cough is subsided. He does take Mucinex and he does work well for him. And he can continue taking it. Although can get expensive. He can find the generic brands which are just fine. His x-ray was clear. Does have some interstitial changes are chronic. He is back to walking about 2 miles a day without any significant shortness of breath. Overall he is in a good state. The only issue that he does complain about his the constant drooling from the left side of his mouth because of the stroke. We did talk about medications to potentially drop secretions but at this point I would recommend for him to avoid polypharmacy. If it gets worse she can always call me and I can send him a prescription. For now continue with the Trelegy. She has any issues he can always call otherwise will follow-up sometime in 6-8 months. [facility] Medical History Pulmonary fibrosis Colonic mass Allergies Dental abscess Dysphagia Elevated PSA Abrasion Bursitis of left shoulder Joint pain Effusion, left knee Prostate nodule Microscopic hematuria Bladder outlet obstruction Pes anserinus bursitis of right knee Effusion, right knee Ventricular tachycardia Ischemic cardiomyopathy Atherosclerotic cardiovascular disease Cardiomyopathy Pacemaker ILD (interstitial lung disease) Pulmonary nodules COPD (chronic obstructive pulmonary disease) Bursitis of right shoulder Medial meniscus tear Osteoarthritis of right knee Surgical History History of carpal tunnel release History of cholecystectomy History of tonsillectomy History of colonoscopy Family History Father No problems noted. Mother No problems noted. Son No problems noted. Social History Household Members: Spouse Housing: House Are you a primary respiratory care program director to a significant other at home: No Do you presently have visiting nurse or other home services: No Alcohol intake: current Alcohol intake frequency: does not drink Alcohol type: beer Comment: once Q 3-6 month glass of wine Patient Tobacco Use Status: Former Tobacco user Tobacco use type: Cigarette Years Smoked: 30 years e-Cigarette/Vaping Use: Never Used Second Hand Smoke Exposure: Yes Advance Directives Date on File: 06/24/23 service: No Current occupational status: retired 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 Cognitive needs: No Hearing needs: Yes Vision needs: Yes Review of Systems Const Denies night sweats ENT Denies change in voice, Denies lip swelling, Denies mouth pain, Reports nasal congestion, Reports nasal discharge, Reports post nasal drip and Denies tongue swelling Card Denies chest pain Resp Denies change in phlegm color, Denies chest congestion and Reports cough GI Denies abdominal pain Reports no additional complaints Musc Reports arthralgias, Reports limited range of motion and Reports stiffness Neuro Denies Neuro-related abnormal movements Psych Denies no additional complaints Rod/Lymph Denies easy bleeding and Denies lymphadenopathy Aller/Immun Denies lip swelling and Denies tongue swelling Physical Exam Vital Signs: Last Vital Signs Pulse 84 09/25/24 13:20 BP 110/58 L 09/25/24 13:20 Pulse Ox 93 09/25/24 13:20 Oxygen Delivery Method Room Air 09/25/24 13:20 BMI result Body Mass Index 26.9 Const General: alert HEENT General nose exam: Abnormal external nose present and Nasal discharge present Throat: Yes posterior oropharynx abnormal, Yes postnasal drainage and Yes cobblestoning Eyes Pupils: Equal, round and reactive pupils present Neck Neck: Yes normal visual inspection, Yes full ROM and Yes no lymphadenopathy Chest Chest palpation & inspection: normal inspection of the chest Resp Auscultation: crackles and diminished lung sounds Cardio Rate: regular rate Rhythm: regular rhythm Heart sounds: S1 normal heart sound present and S2 normal heart sound present GI Palpation (GI): Soft to palpation and nontender Auscultation: normal bowel sounds General: Yes no CVA tenderness Back/Spine/Pelvis Back: no CVA tenderness Skin General skin exam: rashes and/or lesions noted Neuro Cranial nerves: Yes Equal, round and reactive pupils present Assessment & Plan Assessment & Plan (1) COPD (chronic obstructive pulmonary disease): Code(s): J44.9 - Chronic obstructive pulmonary disease, unspecified Category: Medical Qualifiers: COPD type: chronic bronchitis Chronic bronchitis type: simple Qualified Code(s): J41.0 - Simple chronic bronchitis (2) Pulmonary nodules: Code(s): R91.8 - Other nonspecific abnormal finding of lung field Category: Medical (3) Cough: Code(s): R05.9 - Cough, unspecified Category: Medical Qualifiers: Cough type: subacute Qualified Code(s): R05.2 - Subacute cough (4) Allergies: Code(s): T78.40XA - Allergy, unspecified, initial encounter Category: Medical Qualifiers: Encounter type: initial encounter Qualified Code(s): T78.40XA - Allergy, unspecified, initial encounter (5) ILD (interstitial lung disease): Code(s): J84.9 - Interstitial pulmonary disease, unspecified Category: Medical (6) Pulmonary fibrosis: Code(s): J84.10 - Pulmonary fibrosis, unspecified Category: Medical Plan continue Trelegy inhaler Singulair neti bottle with distilled water only fluticasone nasal spray Follow-up in 6-8 months Coding Level of Care Code Est Pt Level 4 (89805) Complex EM visit Add On G2211 Diagnoses 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 COPD type: chronic bronchitis Chronic bronchitis type: simple Pulmonary nodules R91.8 Subacute cough R05.2 Cough type: subacute Allergy, initial encounter T78.40XA Encounter type: initial encounter ILD (interstitial lung disease) J84.9 Pulmonary fibrosis J84.10 Time Spent (min) 16
--- OUTSIDE RECORDS SUMMARY | 2024-09-25 16:30 | XMS_ITS | Encounter Summary ---
Author Organization [facility] Address [address] [place] [address] Care Team Providers Care Dispersion Mixer Name Role Phone Anthony Whittaker MD Primary Care Provider [phone] Royal Pierre MD Primary Care Provider [phone] Chel Montilla MD Unavailable Nubia Preston PA-C Unavailable Unavailab Joseph Thompson MD Unavailable [phone] Devika Bashir NP Unavailable [facility] Primary Care Provider Unavailabl e Encounter Details Date Type Department Care Team Description 03/12/2014 Release of Information Medical Records [address] [place] [id number] Abstract, Provider Social History Tobacco Use Types Packs/Day Years Used Date Smoking Tobacco: Former Cigarettes Q uit: 12/20/1990 Alcohol Use Standard Drinks/Week Comments Not Asked 0 (1 standard drink = 0.6 oz pur e alcohol) Sex Assigned at Date Recorded Not on file Job Start Date Occupation Industry Not on file Not on file Not on file documented as of this encounter Plan of Treatment Not on file documented as of this encounter Visit Diagnoses Not on filedocumented in this encounter Care Teams Dispersion Mixer Relationship Specialty Start Date End Date Anthony Whittaker MD [address] [place] [address] [id number] PCP - General 10/09/1995 07/20/20 Royal Pierre MD [address] [place] [address] PCP - General Internal Medicine 07/21/20 12/27/23 [facility] [address] [place] [address] PCP - General Internal Medicine 12/28/23 Chel Montilla MD [address] [place] [address] Specialist Cardiology 02/25/21 Nubia Preston PA-C [address] [place] [address] Cardiology 05/24/21 01/28/23 Joseph Berg MD [address] [place] [address] Specialist Cardiology 01/24/23 Devika Bashir NP [address] [place] [address] Cardiology 01/29/23 documented as of this encounter
--- OUTSIDE RECORDS SUMMARY | 2024-09-25 16:30 | XMS_ITS | Encounter Summary ---
Author Organization [facility] Address [address] [place] [address] Care Team Providers Care Airplane Flight Attendant Supervisor Name Role Phone Anthony Whittaker MD Primary Care Provider [phone] Royal Pierre MD Primary Care Provider [phone] Chel Montilla MD Unavailable Nubia Preston PA-C Unavailable Unavailab Joseph Thompson MD Unavailable [phone] Devika Bashir NP Unavailable [facility] Primary Care Provider Unavailabl e Encounter Details Date Type Department Care Team Description 04/29/2018 Grain Sacker Report Medical Records [address] [place] [id number] Chel Montilla MD [address] [place] [address] [phone] Social History Tobacco Use Types Packs/Day Years Used Date Smoking Tobacco: Former Cigarettes 2 25 0 07/16/1965 - 12/20/1990 Smokeless Tobacco: Never Alcohol Use Standard Drinks/Week Comments No 0 (1 standard drink = 0.6 oz pur e alcohol) Sex Assigned at Date Recorded Not on file Job Start Date Occupation Industry Not on file Not on file Not on file documented as of this encounter Plan of Treatment Not on file documented as of this encounter Visit Diagnoses Not on filedocumented in this encounter Care Teams Airplane Flight Attendant Supervisor Relationship Specialty Start Date End Date Anthony Whittaker MD [address] [place] [address] [id number] PCP - General 10/09/1995 07/20/20 Royal Pierre MD [address] [place] [address] PCP - General Internal Medicine 07/21/20 12/27/23 [facility] [address] [place] [address] PCP - General Internal Medicine 12/28/23 Chel Montilla MD [address] [place] [address] Specialist Cardiology 02/25/21 Nubia Preston PA-C [address] [place] [address] Cardiology 05/24/21 01/28/23 Joseph Berg MD [address] [place] [address] Specialist Cardiology 01/24/23 Devika Bashir NP [address] [place], [place] [phone] Cardiology 01/29/23 documented as of this encounter
--- OUTSIDE RECORDS SUMMARY | 2024-09-25 16:30 | XMS_ITS | Encounter Summary ---
Author Organization [facility] Address [address] [place] [address] Care Team Providers Care Hand Suture Winder Name Role Phone Anthony Whittaker MD Primary Care Provider [phone] Royal Pierre MD Primary Care Provider [phone] Chel Montilla MD Unavailable Nubia Preston PA-C Unavailable Unavailab Joseph Thompson MD Unavailable [phone] Devika Bashir NP Unavailable [facility] Primary Care Provider Unavailabl e Encounter Details Date Type Department Care Team Description 10/02/2014 Limousine Driver Report Medical Records [address] [place] [id number] Shaunna Fry MD Social History Tobacco Use Types Packs/Day Years [...] on filedocumented in this encounter Care Teams Hand Suture Winder Relationship Specialty Start Date End Date Anthony Whittaker MD [address] [place] [address] PCP - General 10/09/1995 07/20/20 Royal Pierre MD [address] [place] [address] [id number] PCP - General Internal Medicine 07/21/20 12/27/23 [facility] Pcp [address] [place] [address] PCP - General Internal Medicine 12/28/23 Chel Montilla MD [address] [place] [address] Specialist Cardiology 02/25/21 Nubia Preston PA-C [address] [place] [address] Cardiology 05/24/21 01/28/23 Joseph Berg MD [address] [place] [address] Specialist Cardiology 01/24/23 Devika Bashir NP [address] [place] [address] Cardiology 01/29/23 documented as of this encounter
--- OUTSIDE RECORDS SUMMARY | 2024-09-25 16:30 | XMS_ITS | Encounter Summary ---
Author Organization [facility] Address [address] [place] [address] Care Team Providers Care Office Support Clerk Name Role Phone Royal Pierre MD Primary Care Provider [phone] Chel Montilla MD Unavailable Nubia Preston PA-C Unavailable Unavailab Joseph Thompson MD Unavailable [phone] Devika Bashir NP Unavailable Unavailable [facility], Pcp Primary Care Provider Unavailabl e Encounter Details Date Type Department Care Team Description 05/14/2021 Hospital Medical Records [address] [place] [id number] Social History Tobacco Use Types Packs/Day Years Used Date Smoking Tobacco: Former Cigarettes 2 25 0 07/16/1965 - 12/20/1990 Smokeless Tobacco: Never Alcohol Use Standard Drinks/Week Comments Yes 0 (1 standard drink = 0.6 oz pur e alcohol) occ beer Sex Assigned at Date Recorded Not on file Job Start Date Occupation Industry Not on file Not on file Not on file COVID-19 Exposure Response Date Recorded In the last month, have you been in contact with someone who was confirmed or suspected to have Coronavirus / COVID-19? No / Unsure 04/25/2021 12:50 PM EDT documented as of this encounter Plan of Treatment Not on file documented as of this encounter Procedures Procedure Name Priority Date/Time Associated Diagnosis Comments OUTSIDE EKG Routine 05/14/2021 documented in this encounter Results * OUTSIDE EKG (05/14/2021) Provider Abstract CARDIOLOGY documented in this encounter Visit Diagnoses Not on filedocumented in this encounter Care Teams Office Support Clerk Relationship Specialty Start Date End Date Royal Pierre MD [address] [place] [address] PCP - General Internal Medicine 07/21/20 12/27/23 [facility], Pcp [address] [place] [address] PCP - General Internal Medicine 12/28/23 Chel Montilla MD [address] [place] [address] Specialist Cardiology 02/25/21 Nubia Preston PA-C [address] [place] [address] Cardiology 05/24/21 01/28/23 Joseph Berg MD [address] [place] [address] Specialist Cardiology 01/24/23 Devika Bashir NP [address] [place] [address] Cardiology 01/29/23 documented as of this encounter
--- OUTSIDE RECORDS SUMMARY | 2024-09-25 16:30 | XMS_ITS | Encounter Summary ---
Author Organization [facility] Address [address] [place] [address] Care Team Providers Care Roll Tube Setter Name Role Phone Anthony Whittaker MD Primary Care Provider Royal Pierre MD Primary Care Provider Chel Montilla MD Unavailable Nubia Preston PA-C Unavailable Unavailab Joseph Thompson MD Unavailable [phone] Devika Bashir NP Unavailable Unavailable [facility], Pcp Primary Care Provider Unavailabl e Reason for Visit * Reason Onset Date Comments Laryngitis 02/12/2014 Encounter Details Date Type Department Care Team Description 02/12/2014 Telephone Adult Medicine [address] [id number] Anthony Whittaker MD [address] [place] [phone] Laryngitis Social History Tobacco Use Types Packs/Day Years Used Date Smoking Tobacco: Former Cigarettes Q uit: 12/20/1990 Alcohol Use Standard Drinks/Week Comments Not Asked 0 (1 standard drink = 0.6 oz pur e alcohol) Sex Assigned at Date Recorded Not on file Job Start Date Occupation Industry Not on file Not on file Not on file documented as of this encounter Miscellaneous Notes * Telephone Encounter - Aaron George L.P.N. - 02/12/2014 1:28 PM EDT called (+VR) She reports her has had a dry cough for 2 weeks new symptom today he has laryngitis Denies temp no chest pain C/O SOB after cough Unable to talk to the patient he is at workHse reports his appetite and hydration is good VQS bowels normal Appt tomorrow with Elmo Leary at [facility] [employer] phone consultation and advice Reviewed with the patient S/S to watch for that would require immediate attention If symptoms worsen patient can call the triage nurseor go to the ER if needed can call 911 Patient states he/she is satisfied with information and homecare instructions he is able to verbalize the instructions given * Telephone Encounter - Sindhu Crum - 02/12/2014 11:35 AM EDT Symptoms patient is presenting: Spouse calling... Patient has cough and congestion . States laryngitis. How long has patient had these symptoms?: x2 weeks PCP: Anthony Whittaker [place] / [place] / Product Type: MEDICARE [id number] documented in this encounter Plan of Treatment Not on file documented as of this encounter Visit Diagnoses Not on filedocumented in this encounter Care Teams Roll Tube Setter Relationship Specialty Start Date End Date Anthony Whittaker MD [address] [place] [address] PCP - General 10/09/1995 07/20/20 Royal Pierre MD [address] [place] [address] PCP - General Internal Medicine 07/21/20 12/27/23 [facility], Pcp [address] [place] [address] PCP - General Internal Medicine 12/28/23 Chel Montilla MD [address] [place] [address] Specialist Cardiology 02/25/21 Nubia Preston PA-C [address] [place] [address] Cardiology 05/24/21 01/28/23 Joseph Berg MD [address] [place] [address] Specialist Cardiology 01/24/23 Devika Bashir NP [address] [place], [place] [phone] Cardiology 01/29/23 documented as of this encounter
--- OUTSIDE RECORDS SUMMARY | 2024-09-25 16:30 | XMS_ITS | Encounter Summary ---
Author Organization [facility] Address [address] [place] [address] Care Team Providers Care Senior Security Analyst Name Role Phone Anthony Whittaker MD Primary Care Provider [phone] Royal Pierre MD Primary Care Provider [phone] Chel Montilla MD Unavailable Nbuia Preston PA-C Unavailable Unavailab Joseph Thompson MD Unavailable [phone] Devika Bashir NP Unavailable Unavailable [facility], Pcp Primary Care Provider Unavailabl e Encounter Details Date Type Department Care Team Description 05/08/2018 [employer] Product Consultant Report Medical Records [address] [place] [id number] Marian Otero Social History Tobacco Use Types Packs/Day Years [...] on filedocumented in this encounter Care Teams Senior Security Analyst Relationship Specialty Start Date End Date Anthony Whittaker MD [address] [place] [address] PCP - General 10/09/1995 07/20/20 Royal Pierre MD [address] [place] [address] PCP - General Internal Medicine 07/21/20 12/27/23 [facility] Pcp [address] [place] [address] PCP - General Internal Medicine 12/28/23 Chel Montilla MD [address] [place] [address] Specialist Cardiology 02/25/21 Nubia Preston PA-C [address] [place] [address] Cardiology 05/24/21 01/28/23 Joseph Berg MD [address] [place] [address] Specialist Cardiology 01/24/23 Devika Bashir NP [address] [place] [address] Cardiology 01/29/23 documented as of this encounter
--- OUTSIDE RECORDS SUMMARY | 2024-09-25 16:30 | XMS_ITS ---
Author Organization [facility] miguel Valentines Address [address] [facility] [place] [address] Care Team Providers Care Car Filler Name Role Phone Gabby JENSEN, Royal Contreras Primary Care Provider Unav ailable Erasto, Maria Unavailable [phone] Encounters Encounter Location Date Provider Diagnosis [facility] [address] [place] [address] 08/06/2023 Maria Maurer Plan Of Treatment No Information Progress Notes * Deacon KEYES JrDOB:[birth year] (83 yo M)Acc No.[id number]:08/06/2023 Progress Note Patient:?Deacon KEYES r Provider:?Maria Maurre DPM :1940???Age:82 Y???Sex:Male Nate e:08/06/2023 Address:[address] [place] [address] [facility] [id number] Pcp:Royal Pierre MD Subjective: * Chief Complaints: * ??? * Medical History:? Objective: * Vitals:? Assessment: Plan: * Treatment: * Images: * The named appointment provid er may or may not be the originator of this progress note, and it is not deemed complete until electronically signed by the appointment provider. Sign off status: Pending * Provider:?Maria Maurer DPM Date:?2023 Generated for Trii dewey/Fapatog/eTransmitting on:?09/25/2024 04:30 PM EDT
--- OUTSIDE RECORDS SUMMARY | 2024-09-25 16:30 | XMS_ITS | Encounter Summary ---
Author Organization [facility] Address [address] [place] [address] Care Team Providers Care Personal Care Attendant Name Role Phone Anthony Whittaker MD Primary Care Provider [phone] Royal Pierre MD Primary Care Provider [phone] Chel Montilla MD Unavailable Nubia Preston PA-C Unavailable Unavailab Joseph Thompson MD Unavailable [phone] Devika Bashir NP Unavailable Unavailable [facility], Pcp Primary Care Provider Unavailabl e Encounter Details Date Type Department Care Team Description 05/13/2018 Hospital Admissions Officer Report Medical Records [address] [place] [address] Juice Aguilera PA-C [address] [place] [address] Social History Tobacco Use Types Packs/Day Years [...] on filedocumented in this encounter Care Teams Personal Care Attendant Relationship Specialty Start Date End Date Anthony Whittaker MD [address] [place] [address] PCP - General 10/09/1995 07/20/20 Royal Pierre MD [address] [place] [address] PCP - General Internal Medicine 07/21/20 12/27/23 [facility], Pcp [address] [place] [address] PCP - General Internal Medicine 12/28/23 Chel Montilla MD [address] [place] [address] Specialist Cardiology 02/25/21 Nubia Preston PA-C [address] [place] [address] Cardiology 05/24/21 01/28/23 Joseph Berg MD [address] [place] [address] Specialist Cardiology 01/24/23 Devika Bashir NP [address] [place] [address] Cardiology 01/29/23 documented as of this encounter
--- OUTSIDE RECORDS SUMMARY | 2024-09-25 16:30 | XMS_ITS | Encounter Summary ---
Author Organization [facility] Address [address] [place] [address] Care Team Providers Care Ledge Man Name Role Phone Royal Pierre MD Primary Care Provider [phone] Chel Montilla MD Unavailable Nubia Preston PA-C Unavailable Unavailab Joseph Thompson MD Unavailable [phone] Devika Bashir NP Unavailable Unavailable [facility], Pcp Primary Care Provider Unavailabl e Encounter Details Date Type Department Care Team Description 08/05/2021 Accounts Payable Coordinator Report Medical Records [address] [place] [address] Ken Allen MD Social History Tobacco Use Types Packs/Day [...] on filedocumented in this encounter Care Teams Ledge Man Relationship Specialty Start Date End Date Royal Pierre MD [address] [place] [address]283 PCP - General Internal Medicine 07/21/20 12/27/23 [facility], Pcp [address] [place] [address] 31178 PCP - General Internal Medicine 12/28/23 Chel Montilla MD [address] [place] [address] [phone] Specialist Cardiology 02/25/21 Nubia Preston PA-C [address] [place] [address] 6[address] Cardiology 05/24/21 01/28/23 Joseph Berg MD [address] [place], [place] [phone] Specialist Cardiology 01/24/23 Devika Bashir NP [address] [place] [address] Cardiology 01/29/23 documented as of this encounter
--- OUTSIDE RECORDS SUMMARY | 2024-09-25 16:30 | XMS_ITS | Encounter Summary ---
Author Organization [facility] Address [address] [place] [address] Care Team Providers Care Media Relations Director Name Role Phone Royal Pierre MD Primary Care Provider [phone] Chel Montilla MD Unavailable Nubia Preston PA-C Unavailable Unavailab Joseph Thompson MD Unavailable [phone] Devika Bashir NP Unavailable Unavailable [facility], Pcp Primary Care Provider Unavailabl e Encounter Details Date Type Department Care Team Description 05/14/2021 Hospital Medical Records [address] [place] [address] Social History Tobacco Use Types Packs/Day Years [...] Name Priority Date/Time Associated Diagnosis Comments OUTSIDE PLAIN FILM Routine 05/14/2021 documented in this encounter Results * OUTSIDE PLAIN FILM (05/14/2021) Provider Abstract RADIOLOGY documented in this encounter Visit Diagnoses Not on filedocumented in this encounter Care Teams Media Relations Director Relationship Specialty Start Date End Date Royal Pierre MD [address] [place] [address] PCP - General Internal Medicine 07/21/20 12/27/23 [facility], Pcp [address] [place] [address] PCP - General Internal Medicine 12/28/23 Chel Montilla MD [address] [place] [address] Specialist Cardiology 02/25/21 Nubia Preston PA-C [address] [place] [address] Cardiology 05/24/21 01/28/23 Joseph Berg MD [address] [place] [address] Specialist Cardiology 01/24/23 Devika Bashir NP [address] [place] [address] Cardiology 01/29/23 documented as of this encounter
--- OUTSIDE RECORDS SUMMARY | 2024-09-25 16:30 | XMS_ITS | Encounter Summary ---
Author Organization [facility] Address [address] [place] [address] Care Team Providers Care Merchandise Planner Name Role Phone Anthony Whittaker MD Primary Care Provider [phone] Royal Pierre MD Primary Care Provider [phone] Chel Montilla MD Unavailable Nubia Preston PA-C Unavailable Unavailab Joseph Thompson MD Unavailable [phone] Devika Bashir NP Unavailable Unavailable [facility], Pcp Primary Care Provider Unavailabl e Encounter Details Date Type Department Care Team Description 10/15/2015 Release of Information Medical Records [address] [place] [address] Abstract, Provider Social History Tobacco Use Types [...] on filedocumented in this encounter Care Teams Merchandise Planner Relationship Specialty Start Date End Date Anthony Whittaker MD [address] [place] [address] PCP - General 10/09/1995 07/20/20 Royal Pierre MD [address] [place] [address] PCP - General Internal Medicine 07/21/20 12/27/23 [facility], Pcp [address] [place] [address] PCP - General Internal Medicine 12/28/23 Chel Montilla MD [address] [place] [address] Specialist Cardiology 02/25/21 Nubia Preston PA-C [address] [place] [address] Cardiology 05/24/21 01/28/23 Joseph Berg MD [address] [place] [address] Specialist Cardiology 01/24/23 Devika Bashir NP [address] [place] [address] Cardiology 01/29/23 documented as of this encounter
--- OUTSIDE RECORDS SUMMARY | 2024-09-25 16:30 | XMS_ITS | Encounter Summary ---
Author Organization [facility] Address [address] [place] [address] Care Team Providers Care Yield Clerk Name Role Phone Anthony Whittaker MD Primary Care Provider [phone] Royal Pierre MD Primary Care Provider [phone] Chel Montilla MD Unavailable Nubia Preston PA-C Unavailable Unavailab Joseph Thompson MD Unavailable [phone] Devika Bashir NP Unavailable Unavailable [facility], Pcp Primary Care Provider Unavailabl e Encounter Details Date Type Department Care Team Description 06/04/2015 Business Doc Medical Records [address] [place] [address] Abstract, Provider Social History Tobacco Use Types [...] on filedocumented in this encounter Care Teams Yield Clerk Relationship Specialty Start Date End Date Anthony Whittaker MD [address] [place] [address] PCP - General 10/09/1995 07/20/20 Royal Pierre MD [address] [place] [address] PCP - General Internal Medicine 07/21/20 12/27/23 [facility], Pcp [address] [place] [address] PCP - General Internal Medicine 12/28/23 Chel Montilla MD [address] [place] [address] Specialist Cardiology 02/25/21 Nubia Preston PA-C [address] [place] [address] Cardiology 05/24/21 01/28/23 Joseph Berg MD [address] [place] [address] Specialist Cardiology 01/24/23 Devika Bashir NP [address] [place] [address] Cardiology 01/29/23 documented as of this encounter
--- OUTSIDE RECORDS SUMMARY | 2024-09-25 16:31 | XMS_ITS | Encounter Summary ---
Author Organization [facility] Address [address] [place] [address] Care Team Providers Care Technical Assistant Name Role Phone Royal Pierre MD Primary Care Provider [phone] Chel Montilla MD Unavailable Joseph Berg MD Unavailable [phone] Devika Bashir CARGO VESSEL STEWARDESS Unavailable Unavailable [facility], Pcp Primary Care Provider Unavailabl e Encounter Details Date Type Department Care Team Description 06/25/2023 Hospital Medical Records [address] [place] [address] Perez Mei MD Social History Tobacco Use Types Packs/Day [...] on filedocumented in this encounter Care Teams Technical Assistant Relationship Specialty Start Date End Date Royal Pierre MD [address] [place] [address] PCP - General Internal Medicine 07/21/20 12/27/23 [facility], Pcp [address] [place] [address] 43299 PCP - General Internal Medicine 12/28/23 Chel Montilla MD [address] [place] [address] [phone] Specialist Cardiology 02/25/21 Joseph Berg MD [address] [place] [address] Specialist Cardiology 01/24/23 Devika Bashir NP [address] [place] [address] Cardiology 01/29/23 documented as of this encounter
--- OUTSIDE RECORDS SUMMARY | 2024-09-25 16:31 | XMS_ITS | Encounter Summary ---
Author Organization [facility] Address [address] [place] [address] Care Team Providers Care Insulation Cutter Name Role Phone Anthony Whittaker MD Primary Care Provider [phone] Royal Pierre MD Primary Care Provider [phone] Chel Montilla MD Unavailable Nubia Preston PA-C Unavailable Unavailab Joseph Thompson MD Unavailable [phone] Devika Bashir NP Unavailable Unavailable [facility], Pcp Primary Care Provider Unavailabl e Encounter Details Date Type Department Care Team Description 07/26/2018 Orders Only Medical Records [address] [place] [address] Abstract, Provider Social History Tobacco Use Types [...] Name Priority Date/Time Associated Diagnosis Comments OUTSIDE LAB Routine 07/25/2018 documented in this encounter Results * OUTSIDE LAB (07/25/2018) Provider Abstract LAB documented in this encounter Visit Diagnoses Not on filedocumented in this encounter Care Teams Insulation Cutter Relationship Specialty Start Date End Date Anthony Whittaker MD [address] [place], [place] [phone] PCP - General 10/09/1995 1/5/21 Royal Pierre MD [address] [place] [address] PCP - General Internal Medicine 07/21/20 12/27/23 [facility], Pcp [address] [place], [place] [phone] PCP - General Internal Medicine 12/28/23 Chel Montilla MD [address] [place] [address] Specialist Cardiology 02/25/21 Nubia Preston PA-C [address] [place] [address] Cardiology 05/24/21 01/28/23 Joseph Berg MD [address] [place] [address] Specialist Cardiology 01/24/23 Devika Bashir NP [address] [place] [address] 09174 Cardiology 01/29/23 documented as of this encounter
--- OUTSIDE RECORDS SUMMARY | 2024-09-25 16:31 | XMS_ITS | Encounter Summary ---
Author Organization [facility] Address [address] [place] [address] Care Team Providers Care Full Stack Software Engineer Name Role Phone Royal Pierre MD Primary Care Provider [phone] Chel Montilla MD Unavailable Nubia Preston PA-C Unavailable Unavailab Joseph Thompson MD Unavailable [phone] Devika Bashir NP Unavailable Unavailable [facility], Pcp Primary Care Provider Unavailabl e Encounter Details Date Type Department Care Team Description 07/26/2020 Natural History Collections Curator Report Medical Records [address] [place] [address] Go Ramos MD Social History Tobacco Use Types Packs/Day [...] have Coronavirus / COVID-19? No / Unsure 07/21/2020 10:03 AM EST documented as of this encounter Plan of Treatment Not on file documented as of this encounter Visit Diagnoses Not on filedocumented in this encounter Care Teams Full Stack Software Engineer Relationship Specialty Start Date End Date Royal Pierre MD [address] [place] [address] PCP - General Internal Medicine 07/21/20 12/27/23 [facility], Pcp [address] [place] [address] 0[address]10 PCP - General Internal Medicine 12/28/23 Chel Montilla MD [address] [place] [address] Specialist Cardiology 02/25/21 Nubia Preston PA-C [address] [place] [address] Cardiology 05/24/21 01/28/23 Joseph Berg MD [address] [place] [address] Specialist Cardiology 01/24/23 Devika Bashir NP [address] [place] [address] Cardiology 01/29/23 documented as of this encounter
--- OUTSIDE RECORDS SUMMARY | 2024-09-25 16:31 | XMS_ITS | Encounter Summary ---
Author Organization [facility] Address [address] [place] [address] Care Team Providers Care Reservations Specialist Name Role Phone Anthony Whittaker MD Primary Care Provider Royal Pierre MD Primary Care Provider [phone] Chel Montilla MD Unavailable Nubia Preston PA-C Unavailable Unavailab Joseph Thompson MD Unavailable [phone] Devika Bashir NP Unavailable Unavailable [facility], Pcp Primary Care Provider Unavailabl e Encounter Details Date Type Department Care Team Description 09/15/2012 Hospital Medical Records [address] [place] [address] Soy Nguyen Social History Tobacco Use Types Packs/Day Years [...] on filedocumented in this encounter Care Teams Reservations Specialist Relationship Specialty Start Date End Date Anthony Whittaker MD [address] [place] [address] [phone] PCP - General 10/09/1995 07/20/20 Royal Pierre MD [address] [place] [address] PCP - General Internal Medicine 07/21/20 12/27/23 [facility], Pcp [address] [place] [address] PCP - General Internal Medicine 12/28/23 Chel Montilla MD [address] [place] [address] Specialist Cardiology 02/25/21 Nubia Preston PA-C [address] [place] [address] Cardiology 05/24/21 01/28/23 Joseph Berg MD [address] [place] [address] Specialist Cardiology 01/24/23 Devika Bashir NP [address] [place] [address] Cardiology 01/29/23 documented as of this encounter
--- OUTSIDE RECORDS SUMMARY | 2024-09-25 16:31 | XMS_ITS | Encounter Summary ---
Author Organization [facility] Address [address] [place] [address] Care Team Providers Care Electroencephalographic Technician Name Role Phone Anthony Whittaker MD Primary Care Provider [phone] Royal Pierre MD Primary Care Provider [phone] Chel Montilla MD Unavailable Nubia Preston PA-C Unavailable Unavailab Joseph Thompson MD Unavailable [phone] Devika Bashir NP Unavailable Unavailable [facility], Pcp Primary Care Provider Unavailabl e Encounter Details Date Type Department Care Team Description 01/24/2018 Tail Trimmer Report Medical Records [address] [place] [address] Abstract, Provider Social History Tobacco Use Types Packs/Day Years Used Date Smoking Tobacco: Former Cigarettes 2 25 Q uit: 12/20/1990 Smokeless Tobacco: Never Alcohol Use Standard Drinks/Week Comments Not Asked [...] on filedocumented in this encounter Care Teams Electroencephalographic Technician Relationship Specialty Start Date End Date Anthony Whittaker MD [address] [place] [address] PCP - General 10/09/1995 07/20/20 Royal Pierre MD [address] [place] [address] [phone] PCP - General Internal Medicine 07/21/20 12/27/23 [facility], Pcp [address] [place] [address] 85085 PCP - General Internal Medicine 12/28/23 Chel Montilla MD [address] [place] [address] Specialist Cardiology 02/25/21 Nubia Preston PA-C [address] [place] [address] Cardiology 05/24/21 01/28/23 Joseph Berg MD [address] [place] [address] Specialist Cardiology 01/24/23 Devika Bashir NP [address] [place] [address] Cardiology 01/29/23 documented as of this encounter
--- OUTSIDE RECORDS SUMMARY | 2024-09-25 16:31 | XMS_ITS | Encounter Summary ---
Author Organization [facility] Address [address] [place] [address] Care Team Providers Care Interlocking Pavement Installer Name Role Phone Anthony Whittaker MD Primary Care Provider [phone] Royal Pierre MD Primary Care Provider Chel Montilla MD Unavailable Nubia Preston PA-C Unavailable Unavailab Joseph Thompson MD Unavailable [phone] Devika Bashir NP Unavailable Unavailable [facility], Pcp Primary Care Provider Unavailabl e Reason for Visit * Reason Comments E-prescribe Rx Request Encounter Details Date Type Department Care Team Description 10/27/2017 Refill Adult Medicine [address] [phone] Anthony Whittaker MD [address] [place] [address] [phone] E-prescribe Rx Request Social History Tobacco Use Types Packs/Day Years [...] encounter Miscellaneous Notes * Telephone Encounter - Keith Peña L.P.N. - 10/29/2017 2:02 PM EDT Lab Results Component Value Date NA 135 10/17/2017 K 4.6 10/17/2017 CO2 29.5 10/17/2017 CL 96 10/17/2017 BUN 13 10/17/2017 CREAT 1.0 10/17/2017 GLU 103 10/17/2017 ALB 4.3 10/17/2017 SGOT 17 10/17/2017 SGPT 23 10/17/2017 TBILI 0.7 10/17/2017 ALKPHOS 55 10/17/2017 TP 6.6 10/17/2017 CA 9.1 10/17/2017 GFR > 60 10/17/2017 Lab Results Component Value Date HGBA1C 5.8 10/17/2017 MALBUR 0.7 10/19/2017 MALBCR 1.1 10/19/2017 CHOL 129 10/17/2017 LDL 46 10/17/2017 HDL 70 10/17/2017 TRIG 66 10/17/2017 GLU 103 10/17/2017 CREAT 1.0 10/17/2017 * Telephone Encounter - Chuyita Izaguirre - 10/29/2017 12:16 PM EDT Patient would like script to be: E-PRESCRIBED/FAXED TO PHARMACY ?? WHEN WAS THE PATIENT'S LAST APPOINTMENT IN ADULT MEDICINE? 10/24/2017?? WHEN WAS THE LAST TIME THE PATIENT SAW THEIR PCP? SAME ABOVE ?? Does patient have an upcoming appointment? Yes 05/08/2018 ?? (THE MEDICATION REQUESTED IS ON THE MED LIST ABOVE) All of the medications requested were on the CURRENT MEDS list ?? Did you check the Pharmacy information above?: YES ?? Patient wants: 90 -day supply ?? Is this a mail order prescription request ? NO ? Patients current insurance carrier is: [place]: [place] / Plan: PPO $0 [place] [id number] / Product Type: PPO [id number] ? documented in this encounter Plan of Treatment Not on file documented as of this encounter Visit Diagnoses Not on filedocumented in this encounter Care Teams Interlocking Pavement Installer Relationship Specialty Start Date End Date Anthony Whittaker MD [address] [place] [address]252 PCP - General 10/09/1995 07/20/20 Royal Pierre MD [address] [place] [address]16 PCP - General Internal Medicine 07/21/20 12/27/23 [facility], Pcp [address] [place] [address] PCP - General Internal Medicine 12/28/23 Chel Montilla MD [address] [place] [address]63 Specialist Cardiology 02/25/21 Nubia Preston PA-C [address] [place] [address] 6[address]87 Cardiology 05/24/21 01/28/23 Joseph Berg MD [address] [place] [address] Specialist Cardiology 01/24/23 Devika Bashir NP [address] [place] [address] Cardiology 01/29/23 documented as of this encounter
--- OUTSIDE RECORDS SUMMARY | 2024-09-25 16:31 | XMS_ITS | Encounter Summary ---
Author Organization [facility] Address [address] [place] [address] Care Team Providers Care Multi Media Specialist Name Role Phone Anthony Whittaker MD Primary Care Provider [phone] Royal Pierre MD Primary Care Provider [phone] Chel Montilla MD Unavailable Nubia Preston PA-C Unavailable Unavailab Joseph Thompson MD Unavailable [phone] Devika Bashir NP Unavailable Unavailable [facility], Pcp Primary Care Provider Unavailabl e Encounter Details Date Type Department Care Team Description 09/08/2010 Temperature Logging Operator Report Medical Records [address] [place] [address] Lee Gil MD Social History Tobacco Use Types Packs/Day [...] on filedocumented in this encounter Care Teams Multi Media Specialist Relationship Specialty Start Date End Date Anthony Whittaker MD [address] [place] [address] PCP - General 10/09/1995 07/20/20 Royal Pierre MD [address] [place] [address] [phone] PCP - General Internal Medicine 07/21/20 12/27/23 [facility], Pcp [address] [place] [address] PCP - General Internal Medicine 12/28/23 Chel Montilla MD [address] [place] [address] Specialist Cardiology 02/25/21 Nubia Preston PA-C [address] [place] [address] Cardiology 05/24/21 01/28/23 Joseph Berg MD [address] [place] [address] Specialist Cardiology 01/24/23 Devika Bashir NP [address] [place] [address] Cardiology 01/29/23 documented as of this encounter
--- OUTSIDE RECORDS SUMMARY | 2024-09-25 16:31 | XMS_ITS | Encounter Summary ---
Author Organization [facility] Address [address] [place] [address] Care Team Providers Care Certified Legal Secretary Specialist Name Role Phone Royal Pierre MD Primary Care Provider [phone] Chel Montilla MD Unavailable Nubia Preston PA-C Unavailable Unavailab Joseph Thompson MD Unavailable [phone] Devika Bashir NP Unavailable Unavailable [facility], Pcp Primary Care Provider Unavailabl e Reason for Visit * Reason Comments E-prescribe Rx Request Encounter Details Date Type Department Care Team Description 01/25/2021 Refill Adult Medicine [address] [phone] Anthony Whittaker MD [address] [place] [address] [phone] E-prescribe Rx Request Social History Tobacco Use [...] encounter Miscellaneous Notes * Telephone Encounter - Sera Bell M.A. - 01/26/2021 4:18 PM EDT Lab Results Component Value Date NA 136 01/22/2021 K 4.4 01/22/2021 CO2 29 01/22/2021 CL 100 01/22/2021 BUN 11 01/22/2021 CREAT 0.82 01/22/2021 GLU 115 01/22/2021 CA 8.8 01/22/2021 GFR > 60 01/22/2021 Last appt with pcp 12/15/20 * Telephone Encounter - Heather Diaz - 01/26/2021 8:59 AM EDT Patient would like script to be: E-PRESCRIBED/FAXED TO PHARMACY WHEN WAS THE PATIENT'S LAST APPOINTMENT IN ADULT MEDICINE? 12/15/2020 WHEN WAS THE LAST TIME THE PATIENT SAW THEIR PCP? Same as above Does patient have an upcoming appointment? Yes 02/01/2021 (THE MEDICATION REQUESTED IS ON THE MED LIST ABOVE) All of the medications requested were on the CURRENT MEDS list Did you check the Pharmacy information above?: YES Patient wants: 30 -day supply Is this a mail order prescription request ? NO If the refill is from a FAXED refill request what is the RX # listed on the fax? N/A Patients current insurance carrier is: [place] / [place] / Product Type: MEDICARE [id number] documented in this encounter Plan of Treatment Not on file documented as of this encounter Visit Diagnoses Not on filedocumented in this encounter Care Teams Certified Legal Secretary Specialist Relationship Specialty Start Date End Date Royal Pierre MD [address] [place] [address] PCP - General Internal Medicine 07/21/20 12/27/[address] [address] PCP - General Internal Medicine 12/28/23 Chel Montilla MD [address] [place] [address] Specialist Cardiology 02/25/21 Nubia Preston PA-C [address] [place] [address] Cardiology 05/24/21 01/28/23 Joseph Berg MD [address] [place] [address] Specialist Cardiology 01/24/23 Devika Bashir NP [address] [place] [address] Cardiology 01/29/23 documented as of this encounter
--- OUTSIDE RECORDS SUMMARY | 2024-09-25 16:31 | XMS_ITS | Encounter Summary ---
Author Organization [facility] Address [address] [place] [address] Care Team Providers Care Dress Cutter Name Role Phone Royal Pierre MD Primary Care Provider [phone] Chel Montilla MD Unavailable Joseph Berg MD Unavailable Devika Bashir NP Unavailable Unavailable [facility], Pcp Primary Care Provider Unavailabl e Reason for Visit * Reason Onset Date Comments APPOINTMENT 03/28/2023 Called pt to see if he would like move his [place] appointment with Dr Berg up to 03/29/23. Encounter Details Date Type Department Care Team Description 03/28/2023 Telephone Cardio PVC POC [address] [place], [place] [phone] Joseph Berg MD [address] [place] [address] [phone] APPOINTMENT (Called pt to see if he would like move his [place] appointment with Dr Berg up to 03/29/23.) Social History Tobacco Use Types Packs/Day Years [...] encounter Miscellaneous Notes * Telephone Encounter - Joslyn Ramírezarty - 03/28/2023 11:53 AM EDT Deacon called back , He can`t come in Tomorrow on the . He did thank you for the call марина * Telephone Encounter - Brenda Arthur - 03/28/2023 11:10 AM EDT I called Deacon and left a voicemail letting him know I have a couple of [place] appointment slots that are now open with Dr Berg on Mar 29. I asked Deacon to call back if he would like to move his Epe[place] up to tomorrow morning. documented in this encounter Plan of Treatment Not on file documented as of this encounter Visit Diagnoses Not on filedocumented in this encounter Care Teams Dress Cutter Relationship Specialty Start Date End Date Royal Pierre MD [address] [place] [address] PCP - General Internal Medicine 07/21/20 12/27/23 [facility], Pcp [address] [place] [address] PCP - General Internal Medicine 12/28/23 Chel Montilla MD [address] [place] [address] Specialist Cardiology 02/25/21 Joseph Berg MD [address] [place] [address] Specialist Cardiology 01/24/23 Devika Bashir NP [address] [place] [address] Cardiology 01/29/23 documented as of this encounter
--- OUTSIDE RECORDS SUMMARY | 2024-09-25 16:31 | XMS_ITS | Encounter Summary ---
Author Organization [facility] Address [address] [place] [address] Care Team Providers Care Guest Services Representative Name Role Phone Anthony Whittaker MD Primary Care Provider [phone] Royal Pierre MD Primary Care Provider [phone] Chel Montilla MD Unavailable Nubia Preston PA-C Unavailable Unavailab Joseph Thompson MD Unavailable [phone] Devika Bashir NP Unavailable Unavailable [facility], Pcp Primary Care Provider Unavailabl e Encounter Details Date Type Department Care Team Description 11/12/2011 Hospital Medical Records [address] [place] [address] Glory Rivers MD Social History Tobacco Use Types Packs/Day [...] on filedocumented in this encounter Care Teams Guest Services Representative Relationship Specialty Start Date End Date Anthony Whittaker MD [address] [place] [address] [phone] PCP - General 10/09/1995 07/20/20 Royal Pierre MD [address] [place] [address] PCP - General Internal Medicine 07/21/20 12/27/23 [facility], Pcp [address] [place] [address] PCP - General Internal Medicine 12/28/23 Chel Montilla MD [address] [place] [address] Specialist Cardiology 02/25/21 Nubia Preston PA-C [address] [place] [address] Cardiology 05/24/21 01/28/23 Joseph Berg MD [address] [place] [address] Specialist Cardiology 01/24/23 Devika Bashir NP [address] [place] [address] Cardiology 01/29/23 documented as of this encounter
--- OUTSIDE RECORDS SUMMARY | 2024-09-25 16:31 | XMS_ITS | Encounter Summary ---
Author Organization [facility] Address [address] [place] [address] Care Team Providers Care Car Bracer Name Role Phone Royal Pierre MD Primary Care Provider [phone] Chel Montilla MD Unavailable Joseph Berg MD Unavailable [phone] Devika Bashir NP Unavailable Unavailable [facility], Pcp Primary Care Provider Unavailabl e Reason for Visit * Reason Onset Date Comments Hospital Procedure 04/09/2023 Upgrade to Du al ICD 11.3.23 Encounter Details Date Type Department Care Team Description 04/09/2023 Telephone Cardio PVC POC [address] [facility] [address] [place], [place] [phone] Joseph Berg MD [address] [place] [address] [phone] Hospital Procedure (Upgrade to Dual ICD 11.3.23) Social History Tobacco Use Types Packs/Day Years [...] Exposure Response Date Recorded In the last 10 days, have yo u been in contact with someone who was confirmed or suspected to have Coronavirus/COVID-19? No / Unsure 04/03/2023 9:43 AM EDT documented as of this encounter Miscellaneous Notes * Telephone Encounter - Heather Dong C.M.A. - 04/12/2023 1:51 PM EDT Spoke with patient about procedure. Scheduled on 05.18.[address] Berg at [facility] at 10am Mailing packet to patient today Packet mailed to patient includes instructions with medications, follow-up, lab orders, pre/post procedural care and pamphlet for procedure. Confirmed address on file Arrival time 9am Bloodwork to be done week of 05.07.23 at any lab of choice (Labs are not fasting) Medication instructions are to: continue all medications You can take all other medications with some water These instructions are given verbal and written and understood Patient will have to be fasting from midnight night before procedure. Patient made aware that they will need to make arrangements for someone to drive to and from the hospital for the procedure Patient is to report to [facility] to the 3rd floor Patient agreed to all inst and date, time and location above via phone while booking procedure. Booking sheet and confirmation received. * Telephone Encounter - Heather Dnog C.M.A. - 04/09/2023 1:52 PM EDT Left voicemail on patients phone number on file to call me back gave my direct number documented in this encounter Plan of Treatment Not on file documented as of this encounter Results * (ABNORMAL) CHG BLOOD COUNT COMPLETE AUTO&AUTO DIFRNTL WBC (05/04/2023 1:35 PM EDT) [facility] WHITE BLOOD COUNT 7.9 4.8 - 10.8 x10-3/uL 05/04/2023 4:29 PM EDT [facility] RED BLOOD COUNT 3.8(L) 4.5 - 5.5 x10-6/uL 05/04/2023 4:29 PM EDT [facility] Hemoglobin 12.7(L) 13.5 - 17.5 g/dL 05/04/2023 4:29 PM EDT [facility] Hematocrit 36.5(L) 42 - 54 % 05/04/2023 4:29 PM EDT [facility] MEAN CORPUSCULAR VOLUME 96.6 79 - 98 fL 05/04/2023 4:29 PM EDT [facility] CORPUSCULAR HEMOGLOBIN 33.6(H) 27 - 32 pg 05/04/2023 4:29 PM EDT [facility] CORPUSCULAR HGB CONC 34.8 32 - 37 g/dL 05/04/2023 4:29 PM EDT [facility] RED CELL DISTRIBUTION WIDTH 14.0 11 - 15 % 05/04/2023 4:29 PM EDT [facility] PLT COUNT 215 130 - 400 x10-3/uL 05/04/2023 4:29 PM EDT [facility] PLATELET VOLUME 8.9 7 - 11 fL 05/04/2023 4:29 PM EDT [facility] NRBC % AUTO 0.0 <1 % 05/04/2023 4:29 PM EDT [facility] NEUTROPHILS % 71.6 % 05/04/2023 4:29 PM EDT [facility] LYMPH % 12.3 % 05/04/2023 4:29 PM EDT [facility] MONO % 12.0 % 05/04/2023 4:29 PM EDT [facility] EOS % 3.1 % 05/04/2023 4:29 PM EDT [facility] BASO % 0.6 % 05/04/2023 4:29 PM EDT [facility] IMMATURE GRANULOCYTES % 0.4 % 05/04/2023 4:29 PM EDT [facility] NRBC # AUTO 0.00 <0.1 x10-3/uL 05/04/2023 4:29 PM EDT [facility] NEUT # 5.63 1.5 - 7.0 x10-3/uL 05/04/2023 4:29 PM EDT [facility] LYMPH # 0.97(L) 1 - 5.0 x10-3/uL 05/04/2023 4:29 PM EDT [facility] MONO # 0.94 0.2 - 1.0 x10-3/uL 05/04/2023 4:29 PM EDT [facility] EOS # 0.24 0 - 0.5 x10-3/uL 05/04/2023 4:29 PM EDT [facility] BASO # 0.05 0 - 0.2 x10-3/uL 05/04/2023 4:29 PM EDT [facility] IMMATURE GRANULOCYTES # 0.03 0 - 0.03 x10-3/uL 05/04/2023 4:29 PM EDT [facility] 05/04/2023 1:35 PM EDT 05/04/2023 1:36 PM EDT Narrative [facility] - 05/04/2023 4:29 PM EDT Release to patient->Immediate Joseph Berg MD LAB [facility] * (ABNORMAL) CHG BASIC METABOLIC PANEL CALCIUM TOTAL (05/04/2023 1:35 PM EDT) GLUCOSE 95 70 - 100 mg/dL 05/04/2023 4:42 PM EDT [facility] Comment:Reference range appl icable to fasting specimens only Blood Urea Nitrogen 11 5 - 25 mg/dL 05/04/2023 4:42 PM EDT [facility] CREAT 0.89 0.7 - 1.3 mg/dL 05/04/2023 4:42 PM EDT [facility] GLOMERULAR FILTRATION RATE 86 >60 05/04/2023 4:42 PM EDT [facility] Comment: This eGFR result was calculated using the CKD-EPI 2020 Creatinine Equation NA 131(L) 135 - 145 mEq/L 05/04/2023 4:42 PM EDT [facility] K 4.2 3.5 - 5.5 mmol/L 05/04/2023 4:42 PM EDT [facility] CL 95(L) 96 - 110 mmol/L 05/04/2023 4:42 PM EDT [facility] CARBON DIOXIDE (CO2) 29 21 - 32 mmol/L 05/04/2023 4:42 PM EDT [facility] ANION GAP 7 3 - 11 05/04/2023 4:42 PM EDT [facility] CALCIUM 8.1(L) 8.5 - 10.5 mg/dL 05/04/2023 4:42 PM EDT [facility] 05/04/2023 1:35 PM EDT 05/04/2023 1:36 PM EDT Narrative [facility] - 05/04/2023 4:42 PM EDT Release to patient->Immediate Joseph Berg MD LAB [facility] * CHG PROTHROMBIN TIME (05/04/2023 1:35 PM EDT) Prothrombin Time 11.6 10.6 - 13.9 SEC 05/04/2023 4:32 PM EDT [facility] INR 0.93 05/04/2023 4:32 PM EDT [facility] 05/04/2023 1:35 PM EDT 05/04/2023 1:36 PM EDT Narrative [facility] - 05/04/2023 4:32 PM EDT Release to patient->Immediate Joseph Berg MD LAB Performing Organization Address [facility] de Phone Number [facility] documented in this encounter Visit Diagnoses Diagnosis VT (ventricular tachycardia) (HCC)- Primary Paroxysmal ventricular tachycardia VT (ventricular tachycardia) (HCC) Paroxysmal ventricular tachycardia documented in this encounter Care Teams Car Bracer Relationship Specialty Start Date End Date Royal Pierre MD [address] [place] [address] PCP - General Internal Medicine 07/21/20 12/27/23 [facility], Pcp [address] [place], [place] [phone] PCP - General Internal Medicine 12/28/23 Chel Montilla MD [address] [place] [address] Specialist Cardiology 02/25/21 Joseph Berg MD [address] [place] [address] Specialist Cardiology 01/24/23 Devika Bashir NP [address] [place], [place] [phone] Cardiology 01/29/23 documented as of this encounter
--- OUTSIDE RECORDS SUMMARY | 2024-09-25 16:31 | XMS_ITS | Encounter Summary ---
Author Organization [facility] Address [address] [place] [address] Care Team Providers Care Hoop Flaring Machine Operator Helper Name Role Phone Anthony Whittaker MD Primary Care Provider [phone] Royal Pierre MD Primary Care Provider [phone] Chel Montilla MD Unavailable Nubia Preston PA-C Unavailable Unavailab Joseph Thompson MD Unavailable [phone] Devika Bashir NP Unavailable Unavailable [facility], Pcp Primary Care Provider Unavailabl e Encounter Details Date Type Department Care Team Description 03/27/2018 Hospital Medical Records [address] [place] [phone] Len Romero MD Social History Tobacco Use Types Packs/Day [...] on filedocumented in this encounter Care Teams Hoop Flaring Machine Operator Helper Relationship Specialty Start Date End Date Anthony Whittaker MD [address] [place] [address] [phone] PCP - General 10/09/1995 07/20/20 Royal Pierre MD [address] [place] [address] PCP - General Internal Medicine 07/21/20 12/27/23 [facility], Pcp [address] [place] [address] PCP - General Internal Medicine 12/28/23 Chel Montilla MD [address] [place] [address] Specialist Cardiology 02/25/21 Nubia Preston PA-C [address] [place] [address] Cardiology 05/24/21 01/28/23 Joseph Berg MD [address] [place] [address] Specialist Cardiology 01/24/23 Devika Bashir NP [address] [place] [address] Cardiology 01/29/23 documented as of this encounter
--- OUTSIDE RECORDS SUMMARY | 2024-09-25 16:31 | XMS_ITS | Encounter Summary ---
Author Organization [facility] Address [address] [place] [address] Care Team Providers Care Technical Service Rep Name Role Phone Anthony Whittaker MD Primary Care Provider [phone] Royal Pierre MD Primary Care Provider [phone] Chel Montilla MD Unavailable Nubia Preston PA-C Unavailable Unavailab Joseph Thompson MD Unavailable [phone] Devika Bashir NP Unavailable Unavailable [facility], Pcp Primary Care Provider Unavailabl e Reason for Visit * Reason Onset Date Comments Call From Patient Family 03/08/2018 Encounter Details Date Type Department Care Team Description 03/08/2018 Telephone Adult Medicine [address] [phone] Anthony Whittaker MD [address] [place] [address] [phone] Call From Patient Family Social History Tobacco Use Types Packs/Day Years [...] encounter Miscellaneous Notes * Telephone Encounter - Julianne Bui M.A. - 03/08/2018 3:13 PM EDT SERGEY Gaviria * Telephone Encounter - Beatrice Mckninon - 03/08/2018 2:44 PM EDT Patient calling to let Anthony Whittaker know that patient has been admitted to [facility] documented in this encounter Plan of Treatment Not on file documented as of this encounter Visit Diagnoses Not on filedocumented in this encounter Care Teams Technical Service Rep Relationship Specialty Start Date End Date Anthony Whittaker MD [address] [place] [address] PCP - General 10/09/1995 07/20/20 Royal Pierre MD [address] [place] [address] PCP - General Internal Medicine 07/21/20 12/27/23 [facility], Pcp [address] [place] [address] PCP - General Internal Medicine 12/28/23 Chel Montilla MD [address] [place] [address] Specialist Cardiology 02/25/21 Nubia Preston PA-C [address] [place] [address] Cardiology 05/24/21 01/28/23 Joseph Berg MD [address] [place] [address] Specialist Cardiology 01/24/23 Devika Bashir NP [address] [place] [address] Cardiology 01/29/23 documented as of this encounter
--- OUTSIDE RECORDS SUMMARY | 2024-09-25 16:31 | XMS_ITS | Encounter Summary ---
Author Organization [facility] Address [address] [place] [address] Care Team Providers Care Jewel Waxer Name Role Phone Royal Pierre MD Primary Care Provider [phone] Chel Montilla MD Unavailable Joseph Berg MD Unavailable [phone] Devika Bashir NP Unavailable Unavailable [facility], Pcp Primary Care Provider Unavailabl e Encounter Details Date Type Department Care Team Description 05/18/2023 Hospital Medical Records [address] [place] [address] [facility] Social History Tobacco Use Types Packs/Day Years [...] suspected to have Coronavirus/COVID-19? No / Unsure 05/14/2023 3:23 PM EDT documented as of this encounter Plan of Treatment Not on file documented as of this encounter Visit Diagnoses Not on filedocumented in this encounter Care Teams Jewel Waxer Relationship Specialty Start Date End Date Royal Pierre MD [address] [place] [address] [phone] PCP - General Internal Medicine 07/21/20 12/27/23 [facility], Pcp [address] [place] [address] PCP - General Internal Medicine 12/28/23 Chel Montilla MD [address] [place] [address] Specialist Cardiology 02/25/21 Joseph Berg MD [address] [place] [address] Specialist Cardiology 01/24/23 Devika Bashir NP [address] [place] [address] Cardiology 01/29/23 documented as of this encounter
--- OUTSIDE RECORDS SUMMARY | 2024-09-25 16:31 | XMS_ITS | Encounter Summary ---
Author Organization [facility] Address [address] [place] [address] Care Team Providers Care Paint Sprayer Sandblaster Name Role Phone Royal Pierre MD Primary Care Provider [phone] Chel Montilla MD Unavailable Nubia Preston PA-C Unavailable Unavailab Joseph Thompson MD Unavailable [phone] Devika Bashir NP Unavailable Unavailable [facility], Pcp Primary Care Provider Unavailabl e Encounter Details Date Type Department Care Team Description 03/11/2021 Upholsterer Apprentice Report Medical Records [address] [place] [address] Husam Guerra MD Social History Tobacco Use Types Packs/Day [...] have Coronavirus / COVID-19? No / Unsure 03/02/2021 8:54 AM EDT documented as of this encounter Plan of Treatment Not on file documented as of this encounter Visit Diagnoses Not on filedocumented in this encounter Care Teams Paint Sprayer Sandblaster Relationship Specialty Start Date End Date Royal Pierre MD [address] [place] [address] PCP - General Internal Medicine 07/21/20 12/27/23 [facility], Pcp [address] [place] [address] PCP - General Internal Medicine 12/28/23 Chel Montilla MD [address] [place] [address] Specialist Cardiology 02/25/21 Nubia Preston PA-C [address] [place] [address] Cardiology 05/24/21 01/28/23 Joseph Berg MD [address] [place] [address] Specialist Cardiology 01/24/23 Devika Bashir NP [address] [place] [address] Cardiology 01/29/23 documented as of this encounter
--- OUTSIDE RECORDS SUMMARY | 2024-09-25 16:31 | XMS_ITS | Encounter Summary ---
Author Organization [facility] Address [address] [place] [address] Care Team Providers Care Commercial Title Examiner Name Role Phone Anthony Whittaker MD Primary Care Provider [phone] Royal Pierre MD Primary Care Provider [phone] Chel Montilla MD Unavailable Nubia Preston PA-C Unavailable Unavailab Joseph Thompson MD Unavailable [phone] Devika Bashir NP Unavailable [facility]available [facility], Pcp Primary Care Provider Unavailabl e Encounter Details Date Type Department Care Team Description 12/06/2011 [employer] Oats Flake Miller Report Medical Records [address] [place] [address] Lee Gil MD Social History Tobacco Use [...] on filedocumented in this encounter Care Teams Commercial Title Examiner Relationship Specialty Start Date End Date Anthony Whittaker MD [address] [place] [address] [phone] PCP - General 10/09/1995 07/20/20 Royal Pierre MD [address] [place] [address] [phone] PCP - General Internal Medicine 07/21/20 12/27/23 [facility], Pcp [address] [place] [address] PCP - General Internal Medicine 12/28/23 Chel Montilla MD [address] [place] [address] Specialist Cardiology 02/25/21 Nubia Preston PA-C [address] [place] [address] Cardiology 05/24/21 01/28/23 Joseph Berg MD [address] [place] [address] Specialist Cardiology 01/24/23 Devika Bashir NP [address] [place] [address] Cardiology 01/29/23 documented as of this encounter
--- OUTSIDE RECORDS SUMMARY | 2024-09-25 16:31 | XMS_ITS | Encounter Summary ---
Author Organization [facility] Address [address] [place] [address] Care Team Providers Care Drywall Finisher Foreman Name Role Phone Anthony Whittaker MD Primary Care Provider Royal Pierre MD Primary Care Provider [phone] Chel Montilla MD Unavailable Nubia Preston PA-C Unavailable Unavailab Joseph Thompson MD Unavailable [phone] Devika Bashir NP Unavailable Unavailable [facility], Pcp Primary Care Provider Unavailabl e Encounter Details Date Type Department Care Team Description 07/14/2006 Hospital Medical Records [address] [place] [address] Susy Contreras MD Social History Tobacco Use Types Packs/Day [...] on filedocumented in this encounter Care Teams Drywall Finisher Foreman Relationship Specialty Start Date End Date Anthony Whittaker MD [address] [place] [address] PCP - General 10/09/1995 07/20/20 Royal Pierre MD [address] [place] [address] PCP - General Internal Medicine 07/21/20 12/27/23 [facility], Pcp [address] [place] [address] PCP - General Internal Medicine 12/28/23 Chel Montilla MD [address] [place] [address] Specialist Cardiology 02/25/21 Nubia Preston PA-C [address] [place] [address] Cardiology 05/24/21 01/28/23 Joseph Berg MD [address] [place] [address] Specialist Cardiology 01/24/23 Devika Bashir NP [address] [place] [address] Cardiology 01/29/23 documented as of this encounter
--- OUTSIDE RECORDS SUMMARY | 2024-09-25 16:31 | XMS_ITS | Encounter Summary ---
Author Organization [facility] Address [address] [place] [address] Care Team Providers Care Correspondence Coordinator Name Role Phone Royal Pierre MD Primary Care Provider [phone] Chel Montilla MD Unavailable Joseph Berg MD Unavailable [phone] Devika Bashir CRIME SCENE INVESTIGATOR Unavailable Unavailable [facility], Pcp Primary Care Provider Unavailabl e Encounter Details Date Type Department Care Team Description 06/24/2023 Planogrammer Report Medical Records [address] [place] [id number] [facility] Social History Tobacco Use Types Packs/Day [...] on filedocumented in this encounter Care Teams Correspondence Coordinator Relationship Specialty Start Date End Date Royal Pierre MD [address] [place] [address] [phone] PCP - General Internal Medicine 07/21/20 12/27/23 [facility], Pcp [address] [place] [address] PCP - General Internal Medicine 12/28/23 Chel Montilla MD [address] [place] [address] [phone] Specialist Cardiology 02/25/21 Joseph Berg MD [address] [place] [address] Specialist Cardiology 01/24/23 Devika Bashir NP [address] [place] [address] Cardiology 01/29/23 documented as of this encounter
--- OUTSIDE RECORDS SUMMARY | 2024-09-25 16:31 | XMS_ITS | Encounter Summary ---
Author Organization [facility] Address [address] [place] [address] Care Team Providers Care Autocad Detailer Name Role Phone Anthony Whittaker MD Primary Care Provider [phone] Royal Pierre MD Primary Care Provider [phone] Chel Montilla MD Unavailable Nubia Preston PA-C Unavailable Unavailab Joseph Thompson MD Unavailable [phone] Devika Bashir NP Unavailable Unavailable [facility], Pcp Primary Care Provider Unavailabl e Reason for Visit * Reason Onset Date Comments Provider Call Back 04/03/2018 Encounter Details Date Type Department Care Team Description 04/03/2018 Telephone Adult Medicine [address] [phone] Anthony Whittaker MD [address] [place] [address] Provider Call Back Social History Tobacco Use Types Packs/Day Years [...] encounter Miscellaneous Notes * Telephone Encounter - Cira Templeton L.P.N. - 04/04/2018 1:47 PM EDT notified per Anthony Whittaker MD Will hold the script until he is out of the hospital To call ifstill needed then Destroyed script * Telephone Encounter - Sera Bell M.A. - 04/04/2018 11:05 AM EDT I called pt to advise, female answering phone advised Pt is currently at [facility], being transferred to [facility] * Telephone Encounter - Anthony Whittaker MD - 04/04/2018 9:12 AM EDT Please let them know I would recommend a flu shot but because of all that happened to him I would wait and get it the middle of April I will print the prescription for brand name only indomethacin please fax it to his pharmacy * Telephone Encounter - Aaron George L.P.N. - 04/03/2018 3:56 PM EDT Spoke with She states her has gout in left knee wants to know if you will RX Indocin brand name only They want to know if he can get a flu vaccine if yes will make an appt at the flu clinic in [place] Please review and advise is aware Dr. Whittaker is not in today she is willing to wait until tomorrow * Telephone Encounter - Ave Mckinnon - 04/03/2018 3:53 PM EDT Caller requesting call back from provider: Is the caller the patient? YES If caller is not the patient, what is the callers name? N/A Callers relationship to patient? N/A If person calling is not the patient themselves, is there a verbal release in FYI or permanent comments for this person: NO Reason for call back: Patient requesting call back from Dr. Whittaker. States he does not want to speak to a nurse. Caller offered to speak with the nurse for assistance: YES Response: Patient offered to speak with nurse for assistance and patient agreed. Message forwarded to nurse. documented in this encounter Plan of Treatment Not on file documented as of this encounter Visit Diagnoses Not on filedocumented in this encounter Care Teams Autocad Detailer Relationship Specialty Start Date End Date Anthony Whittaker MD [address] [place] [address] PCP - General 10/09/1995 07/20/20 Royal Pierre MD [address] [place] [address] PCP - General Internal Medicine 07/21/20 12/27/23 [facility], [address] [address] PCP - General Internal Medicine 12/28/23 Chel Montilla MD [address] [place] [address] Specialist Cardiology 02/25/21 Nubia Preston PA-C [address] [place] [address] Cardiology 05/24/21 01/28/23 Joseph Berg MD [address] [place] [address] Specialist Cardiology 01/24/23 Devika Bashir NP [address] [place] [address] Cardiology 01/29/23 documented as of this encounter
--- OUTSIDE RECORDS SUMMARY | 2024-09-25 16:31 | XMS_ITS | Encounter Summary ---
Author Organization [facility] Address [address] [place] [address] Care Team Providers Care Claim Adjuster Name Role Phone Anthony Whittaker MD Primary Care Provider [phone] Royal Pierre MD Primary Care Provider [phone] Chel Montilla MD Unavailable Nubia Preston PA-C Unavailable Unavailab Joseph Thompson MD Unavailable [phone] Devika Bashir NP Unavailable Unavailable [facility], Pcp Primary Care Provider Unavailabl e Encounter Details Date Type Department Care Team Description 10/04/2012 Chemical Dependency Attendant Report Medical Records [address] [place] [address] Lee Gil MD Social History Tobacco Use [...] on filedocumented in this encounter Care Teams Claim Adjuster Relationship Specialty Start Date End Date Anthony Whittaker MD [address] [place] [address] [phone] PCP - General 10/09/1995 07/20/20 Royal Pierre MD [address] [place] [address] [phone] PCP - General Internal Medicine 07/21/20 12/27/23 [facility], Pcp [address] [place] [address] PCP - General Internal Medicine 12/28/23 Chel Montilla MD [address] [place] [address] Specialist Cardiology 02/25/21 Nubia Preston PA-C [address] [place] [address] Cardiology 05/24/21 01/28/23 Joseph Berg MD [address] [place] [address] Specialist Cardiology 01/24/23 Devika Bashir NP [address] [place] [address] Cardiology 01/29/23 documented as of this encounter
--- OUTSIDE RECORDS SUMMARY | 2024-09-25 16:31 | XMS_ITS | Encounter Summary ---
Author Organization [facility] Address [address] [place] [address] Care Team Providers Care Director Of Casino Marketing Name Role Phone Anthony Whittaker MD Primary Care Provider [phone] Royal Pierre MD Primary Care Provider [phone] Chel Montilla MD Unavailable Nubia Preston PA-C Unavailable Unavailab Joseph Thompson MD Unavailable [phone] Devika Bashir NP Unavailable Unavailable [facility], Pcp Primary Care Provider Unavailabl e Encounter Details Date Type Department Care Team Description 11/11/2012 Incoming Correspondence Medical Records [address] [place] [address] [facility] Social History Tobacco Use Types Packs/Day Years [...] on filedocumented in this encounter Care Teams Director Of Casino Marketing Relationship Specialty Start Date End Date Anthony Whittaker MD [address] [place] [address] [phone] PCP - General 10/09/1995 07/20/20 Royal Pierre MD [address] [place] [address] [phone] PCP - General Internal Medicine 07/21/20 12/27/23 [facility], Pcp [address] [place] [address] PCP - General Internal Medicine 12/28/23 Chel Montilla MD [address] [place] [address] Specialist Cardiology 02/25/21 Nubia Preston PA-C [address] [place] [address] Cardiology 05/24/21 01/28/23 Joseph Berg MD [address] [place] [address] Specialist Cardiology 01/24/23 Devika Bashir NP [address] [place] [address] Cardiology 01/29/23 documented as of this encounter
--- OUTSIDE RECORDS SUMMARY | 2024-09-25 16:31 | XMS_ITS | Encounter Summary ---
Author Organization [facility] Address [address] [place] [address] Care Team Providers Care Hazardous Waste Material Technician Name Role Phone Anthony Whittaker MD Primary Care Provider [phone] Royal Pierre MD Primary Care Provider [phone] Chel Montilla MD Unavailable Nubia Preston PA-C Unavailable Unavailab Joseph Thompson MD Unavailable [phone] Devika Bashir NP Unavailable Unavailable [facility], Pcp Primary Care Provider Unavailabl e Encounter Details Date Type Department Care Team Description 11/12/2011 Hospital Medical Records [address] [place] [address] Mo Valentin MD [address] [place] [address] [phone] Social History Tobacco Use Types Packs/Day Years [...] on filedocumented in this encounter Care Teams Hazardous Waste Material Technician Relationship Specialty Start Date End Date Anthony Whittaker MD [address] [place] [address] [phone] PCP - General 10/09/1995 07/20/20 Royal Pierre MD [address] [place] [address] PCP - General Internal Medicine 07/21/20 12/27/23 [facility], Pcp [address] [place] [address] PCP - General Internal Medicine 12/28/23 Chel Montilla MD [address] [place] [address] Specialist Cardiology 02/25/21 Nubia Preston PA-C [address] [place] [address] Cardiology 05/24/21 01/28/23 Joseph Berg MD [address] [place] [address] Specialist Cardiology 01/24/23 Devika Bashir NP [address] [place], [place] [phone] Cardiology 01/29/23 documented as of this encounter
--- OUTSIDE RECORDS SUMMARY | 2024-09-25 16:31 | XMS_ITS | Encounter Summary ---
Author Organization [facility] Address [address] [place] [address] Care Team Providers Care Accounts Payable Representative Name Role Phone Anthony Whittaker MD Primary Care Provider Royal Pierre MD Primary Care Provider [phone] Chel Montilla MD Unavailable Nubia Preston PA-C Unavailable Unavailab Joseph Thompson MD Unavailable [phone] Devika Bashir NP Unavailable Unavailable [facility], Pcp Primary Care Provider Unavailabl e Encounter Details Date Type Department Care Team Description 07/17/2018 Supervisor Operations Report Medical Records [address] [place] [address] [facility] Social History Tobacco Use Types Packs/Day [...] on filedocumented in this encounter Care Teams Accounts Payable Representative Relationship Specialty Start Date End Date Anthony Whittaker MD [address] [place] [address] PCP - General 10/09/1995 07/20/20 Royal Pierre MD [address] [place] [address] PCP - General Internal Medicine 07/21/20 12/27/23 [facility], Pcp [address] [place] [address] PCP - General Internal Medicine 12/28/23 Chel Montilla MD [address] [place] [address] Specialist Cardiology 02/25/21 Nubia Preston PA-C [address] [place] [address] Cardiology 05/24/21 01/28/23 Joseph Berg MD [address] [place] [address] Specialist Cardiology 01/24/23 Devika Bashir NP [address] [place] [address] Cardiology 01/29/23 documented as of this encounter
--- OUTSIDE RECORDS SUMMARY | 2024-09-25 16:31 | XMS_ITS ---
Author Organization [facility] [place] Address [address] [facility] [place] [address] Care Team Providers Care Miniature Model Maker Name Role Phone Gabby JENSEN, Royal Contreras Primary Care Provider Unav ailable Black, Maria Unavailable [phone] Allergies No Known Allergies REASON FOR VISIT Painful nail(s) aggrevated by shoes causing difficulty standing/walking, Ingrown Nail Medications Medication SIG (Take, Route, Frequency, Duration) Notes Start Date End Date Status Entresto 49-51 MG 1 tablet Orally Twic e a day for 30 day(s) Active Aspirin 81 MG 1 tablet Orally Once a day for 30 day(s) Active Amiodarone HCl 400 MG 1 tablet Orally On ce a day Active Ciclopirox Olamine 0.77 % 1 application to affected area Externally to feet Twice a day for 30 days Active Atorvastatin Calcium 40 MG 1 tablet Orally Once a day for 30 day(s) Active Alendronate Sodium 70 MG 1 tablet 30 min utes before the first food, beverage or medicine of the day with plain water Orally for 30 day(s) Active Finasteride 5 MG 1 tablet Orally Once a day for 30 day(s) Active Carvedilol 6.25 MG 1 tablet with food Orally Twice a day for 30 day(s) Not-Taking Trelegy Ellipta Acti ve Allopurinol 100 MG 1 tablet Orally Once a day for 30 day(s) Active Social History Tobacco Use: Social History Observation Description Date Details (start date - stop date) Former Smoker NA - NA Tobacco Use/Smoking Question Answer Notes Are you a: former smoker Additional Findings: Tobacco Non-User Ex-heavy c igarette smoker (20-30/day) Alcohol Screen Question Answer Notes Did you have a drink contain ing alcohol in the past year? Yes How often did you have a dri nk containing alcohol in the past year? Monthly or less (1 point) Points 1 Interpretation Negative Tobacco use other than smoking: Question Answer Notes Are you an other tobacco user? No Problems Problem Type SNOMED Code ICD Code Onset Dates Problem Status W/U Status Risk Notes Problem Ulcer of toe of left foot (disorder) (806679761 [id number]) Skin ulcer of toe of left foot, limited to breakdown of skin (L97.521) Active confirmed Nonapplicable Vital Signs Height 5 ft 6 in in 09/20/2023 Weight 156 lbs 09/20/2023 BMI 25.18 kg/m2 09/20/2023 Blood pressure systolic 126 mm Hg 09/20/19 24 Blood pressure diastolic 62 mm Hg 024 Procedures Procedure Date Ordered Date Performed Result Body Sit e 22501-SHCUCDH NAIL, 6 OR MORE 09/20/2023 N/A 81039-Ebvcfuyz Plate 09/20/2023 N/A Encounters Encounter Location Date Provider Diagnosis [facility] [place] [address] [place] [address] 09/20/2023 Maria Black Onychomycosis B35.1 ; Ingrown nail L60.0 ; Pain of toe of right foot M79.674 and Pain of toe of left foot M79.675 Assessments Encounter Date Diagnosis (ICD Code) Assessment Notes Treatment Notes Treatment Clinical Notes Section Notes 09/20/2023 Onychomycosis (ICD-10 - B35.1) 09/20/2023 Ingrown nail (ICD-10 - L60.0) 09/20/2023 Pain of toe of right foot (ICD-10 - M79.674) 09/20/2023 Pain of toe of left foot (ICD-10 - M79.675) 09/20/2023 Other Plan Of Treatment Pending Test Test Name Order Date 89910-AWHYCCI NAIL, 6 OR MORE 09/20/2023 [id number] Plate 09/20/2023 Next Appt Details Follow Up: 2 Weeks, Reason: Procedure Notes * Category Sub-Category Detail Notes Nail Avulsion Procedure A fine sterile e levator was placed between the eponychium, nail fold, and nail plate to separate the structures. A sterile nail splitter, and/or sterile 316 blade, was then used to longitudinally section the nail along its entire length through the eponychium to the area under the nail fold. The offending portion of nail was from the nail bed with a rolling action and then removed with a hemostat. No underlying bone was identified. There was minimal bleeding as hemostasis was achieved through the temporary use of either a digital tourniquet or the aforementioned local with epinephrine. A bacitracin sterile dressing was applied. Local wound aftercare instructions were discussed and dispensed. The patient was informed of both conservative and future surgical procedures to prevent recurrence. Tylenol or Motrin was recommended for pain or discomfort (74334) Anesthesia 3cc of 1 percent Lid ocaine Plain local anesthesic utilizing aseptic technique Location Medial nail border , TA Debride Nail 6-10 Nail debridement Nail debridem ent performed extensively to reduce/remove overall nail length and girth, subungual debris, and necrotic tissue, by manual and electrical means with use of a nail nipper and/or dremel, to more viable healthy nail plate or bed tissue 6-10. Silver nitrate used for any petechial bleeding as necessary. Patient chooses, no pharmaceutical tx (79862) Progress Notes * Deacon KEYES JrDOB:[birth year] (82 yo M)Acc No.[id number]:09/20/2023 Progress Note Patient:?Deacon Keyes Sandeep Provider:?Maria Maurer DPM :1940???Age:82 Y???Sex:Male Nate e:09/20/2023 Address:[address] [place] [address] [phone] Pcp:Royal Pierre MD Subjective: * Chief Complaints: * ???Painful nail(s) aggrevate d by shoes causing difficulty standing/walkingIngrown Nail * HPI: ???Painful Nails:?Pt States Last PCP Visit:?Date:?06/25/2023 * Medical History:? * Surgical History:?pacemaker 2021 * Hospitalization/Major Diagno stic Procedure:?[facility] Acute Stroke 12/23 * Family History:?Mother: dece ased, diagnosed with Unspecified essential hypertension.?Father: , diagnosed with Unspecified essential hypertension, Unspecified cerebral artery occlusion with cerebral infarction.?Siblings: diagnosed with Diabetic - NIDDM.? * Social History:?Tobacco Use:?Tobacco Use/Smoking?Are you a:?former smoker ?Additional Findings: Tobacco Non-User?Ex-heavy cigarette smoker (20- 30/day) ?Tobacco use other than smoking?Are you an other tobacco user??No ???Drugs/Alcohol:?Drugs?Have you used drugs other than those for medical reasons in the past 12 months??No ?Alcohol Screen?Did you have a drink containing alcohol in the past year??Yes ?How often did you have a drink containing alcohol in the past year??Monthly or less (1 point) ?Points?1 ?Interpretation?Negative ???Miscellaneous:?Caffeine: yes, 2 cups decaf, Decaf Soda. ?Children: yes. ?Exercise: yes, walking. ?Marital status: . ?Occupation: Retired. * Medications:?TakingAlendrona te Sodium 70 MG Tablet 1 tablet 30 minutes before the first food, beverage or medicine of the day with plain water Orally Allopurinol 100 MG Tablet 1 tablet Orally Once a dayAmiodarone HCl 400 MG Tablet 1 tablet Orally Once a dayAspirin 81 MG Tablet Chewable 1 tablet Orally Once a dayAtorvastatin Calcium 40 MG Tablet 1 tablet Orally Once a dayCiclopirox Olamine 0.77 % Cream 1 application to affected area Externally to feet Twice a dayEntresto 49-51 MG Tablet 1 tablet Orally Twice a dayFinasteride 5 MG Tablet 1 tablet Orally Once a dayTrelegy Ellipta Taking Alendronate Sodium 70 MG Tablet 1 tablet 30 minutes before the first food, beverage or medicine of the day with plain water Orally Taking Allopurinol 100 MG Tablet 1 tablet Orally Once a dayTaking Amiodarone HCl 400 MG Tablet 1 tablet Orally Once a dayTaking Aspirin 81 MG Tablet Chewable 1 tablet Orally Once a dayTaking Atorvastatin Calcium 40 MG Tablet 1 tablet Orally Once a dayTaking Ciclopirox Olamine 0.77 % Cream 1 application to affected area Externally to feet Twice a dayTaking Entresto 49- 51 MG Tablet 1 tablet Orally Twice a dayTaking Finasteride 5 MG Tablet 1 tablet Orally Once a dayTaking Trelegy Ellipta Not-Taking/PRNCarvedilol 6.25 MG Tablet 1 tablet with food Orally Twice a dayMedication List reviewed and reconciled with the patientNot-Taking/PRN Carvedilol 6.25 MG Tablet 1 tablet with food Orally Twice a dayMedication List reviewed and reconciled with the patient * Allergies:?N.K.D.A.yes[Aller gies Verified] Objective: * Vitals:?Ht: 5 ft 6 in, Wt:15 6, BMI:25.18, Shoe size:9, BP:126/62 mm Hg. * Examination: ???Nails: ?NAILS are:?Elongated, overgrown, dystrophic, lytic, greater than 3mm thick, discolored and friable with crumbly malodorous subungual debris, with pain on palpation , 2-5 Left foot , T5 , T7 , T9.?Ingrown Nail: ?INSPECTION:?Reveals nail incurvation, pain on palpation, groove hypertrophy , groove ischemia , Medial nail border , TA.? Assessment: * Assessment: 1.?Ingrown nail - L60.0 ([facility])?2.?Onychomycosis - B35.1?3.?Pain of toe of right foot - M79.674?4.?Pain of toe of left foot - M79.675? Plan: * Treatment: 2.?Onychomycosis?Procedure: 73365-OXEHYNV NAIL, 6 OR MORE * Procedures:?Debride Nail 6-10:?Nail debridement?Nail debridement performed extensively to reduce/remove overall nail length and girth, subungual debris, and necrotic tissue, by manual and electrical means with use of a nail nipper and/or dremel, to more viable healthy nail plate or bed tissue 6-10. Silver nitrate used for any petechial bleeding as necessary. Patient chooses, no pharmaceutical tx (15021).?Nail Avulsion:?Location?Medial nail border , TA.?Anesthesia?3cc of 1 percent Lidocaine Plain local anesthesic utilizing aseptic technique.?Procedure?A fine sterile elevator was placed between the eponychium, nail fold, and nail plate to separate the structures. A sterile nail splitter, and/or sterile 316 blade, was then used to longitudinally section the nail along its entire length through the eponychium to the area under the nail fold. The offending portion of nail was from the nail bed with a rolling action and then removed with a hemostat. No underlying bone was identified. There was minimal bleeding as hemostasis was achieved through the temporary use of either a digital tourniquet or the aforementioned local with epinephrine. A bacitracin sterile dressing was applied. Local wound aftercare instructions were discussed and dispensed. The patient was informed of both conservative and future surgical procedures to prevent recurrence. Tylenol or Motrin was recommended for pain or discomfort (88144).? * Procedure Codes:?97316 DEBRI DE NAIL, 6 OR MORE, Modifiers: XS 47853 Avulsion Plate, Modifiers: TA * Follow Up:?2 Weeks * Images: * Sign off status: Completed true * Provider:?Maria Maurer DPM Date:?2023 Generated for Ángel palomo/Oni/Chapo on:?09/25/2024 04:31 PM EDT History and Physical Notes * HPI (History of Present Illness) Category Sub-Category Detail Notes Category Not es Painful Nails Pt States Last PCP Visit: Date:: 06/25/2023 Examination Category Sub-Category Detail Notes Category Not es Ingrown Nail INSPECTION: Reveals nail inc urvation, pain on palpation, groove hypertrophy , groove ischemia , Medial nail border , TA Dermatologic ULCER: Nails NAILS are: Elongated, overg rown, dystrophic, lytic, greater than 3mm thick, discolored and friable with crumbly malodorous subungual debris, with pain on palpation , 2-5 Left foot , T5 , T7 , T9
--- OUTSIDE RECORDS SUMMARY | 2024-09-25 16:31 | XMS_ITS | Encounter Summary ---
Author Organization [facility] Address [address] [place] [address] Care Team Providers Care Certified Pathology Assistant Name Role Phone Anthony Whittaker MD Primary Care Provider [phone] Royal Pierre MD Primary Care Provider [phone] Chel Montilla MD Unavailable Nubia Preston PA-C Unavailable Unavailab Joseph Thompson MD Unavailable [phone] Devika Bashir NP Unavailable Unavailable [facility], Pcp Primary Care Provider Unavailabl e Encounter Details Date Type Department Care Team Description 02/08/2018 Male Model Report Medical Records [address] [place] [address] Jeanine Pedersen MD Social History Tobacco Use Types Packs/Day [...] filedocumented in this encounter Care Teams Certified Pathology Assistant Relationship Specialty Start Date End Date Anthony Whittaker MD [address] [place] [address] PCP - General 10/09/1995 07/20/20 Royal Pierre MD [address] [place] [address] [phone] PCP - General Internal Medicine 07/21/20 12/27/23 [facility], Pcp [address] [place] [address] PCP - General Internal Medicine 12/28/23 Chel Montilla MD [address] [place] [address] Specialist Cardiology 02/25/21 Nubia Preston PA-C [address] [place] [address] Cardiology 05/24/21 01/28/23 Joseph Berg MD [address] [place] [address] Specialist Cardiology 01/24/23 Devika Bashir NP [address] [place] [address] Cardiology 01/29/23 documented as of this encounter
--- OUTSIDE RECORDS SUMMARY | 2024-09-25 16:31 | XMS_ITS | Encounter Summary ---
Author Organization [facility] Address [address] [place] [address] Care Team Providers Care Ship'S Officer Name Role Phone Royal Pierre MD Primary Care Provider [phone] Chel Montilla MD Unavailable Joseph Berg MD Unavailable [phone] Devika Bashir NP Unavailable Unavailable [facility], Pcp Primary Care Provider Unavailabl e Reason for Visit * Reason Onset Date Comments Medical Records 06/28/2023 Encounter Details Date Type Department Care Team Description 06/28/2023 Telephone Cardio PVC POC 154 [address] [facility] [address] [place] [address] Chel Montilla MD [address] [place] [address] [id number] Medical Records Social History Tobacco Use Types Packs/Day Years [...] encounter Miscellaneous Notes * Telephone Encounter - Brenda Arthur - 06/28/2023 10:30 AM EST Medical Records Request Deacon was discharged from [facility] on 06/25/23. Can you please get records prior to his 2023 hospital follow up appointment? Thanks. documented in this encounter Plan of Treatment Not on file documented as of this encounter Visit Diagnoses Not on filedocumented in this encounter Care Teams Ship'S Officer Relationship Specialty Start Date End Date Royal Pierre MD [address] [place] [address] PCP - General Internal Medicine 07/21/20 12/27/23 [facility], Pcp [address] [place], [place] [address] PCP - General Internal Medicine 12/28/23 Chel Montilla MD [address] [place] [address] Specialist Cardiology 02/25/21 Joseph Berg MD [address] [place] [address] Specialist Cardiology 01/24/23 Devika Bashir NP [address] [place], [place] [address] Cardiology 01/29/23 documented as of this encounter
--- OUTSIDE RECORDS SUMMARY | 2024-09-25 16:31 | XMS_ITS | Encounter Summary ---
Author Organization [facility] Address [address] [place] [address] Care Team Providers Care Real Estate Consultant Name Role Phone Anthony Whittaker MD Primary Care Provider Royal Pierre MD Primary Care Provider [phone] Chel Montilla MD Unavailable Nubia Preston PA-C Unavailable Unavailab Joseph Thompson MD Unavailable [phone] Devika Bashir NP Unavailable Unavailable [facility], Pcp Primary Care Provider Unavailabl e Encounter Details Date Type Department Care Team Description 03/28/2018 Hospital Medical Records [address] [place] [address] Nima Wilkins Social History Tobacco Use Types Packs/Day Years [...] on filedocumented in this encounter Care Teams Real Estate Consultant Relationship Specialty Start Date End Date Anthony Whittaker MD [address] [place] [address] PCP - General 10/09/1995 07/20/20 Royal Pierre MD [address] [place] [address] PCP - General Internal Medicine 07/21/20 12/27/23 [facility], Pcp [address] [place] [address] PCP - General Internal Medicine 12/28/23 Chel Montilla MD [address] [place] [address] Specialist Cardiology 02/25/21 Nubia Preston PA-C [address] [place] [address] Cardiology 05/24/21 01/28/23 Joseph Berg MD [address] [place] [address] Specialist Cardiology 01/24/23 Devika Bashir NP [address] [place] [address] Cardiology 01/29/23 documented as of this encounter
--- OUTSIDE RECORDS SUMMARY | 2024-09-25 16:32 | XMS_ITS | Patient Health Record ---
Author Organization [facility] Gabreile miguel [place] Address [address] [place] [address] Care Team Providers Care Sidewalk Inspector Name Role Phone Gabby JENSEN, Richardva Ben Primary Care Provider Unav ailable Black, Maria Unavailable [phone] Allergies No Known Allergies Reason For Referral No Information Medications Medication SIG (Take, Route, Frequency, Duration) Notes Start Date End Date Status Amiodarone HCl 400 MG 1 tablet Orally On ce a day Active Allopurinol 100 MG 1 tablet Orally Once a day for 30 day(s) Active Atorvastatin Calcium 40 MG 1 tablet Orally Once a day for 30 day(s) Active Aspirin 81 MG 1 tablet Orally Once a day for 30 day(s) Active Entresto 49-51 MG 1 tablet Orally Twic e a day for 30 day(s) Active Ciclopirox Olamine 0.77 % 1 application to affected area Externally to feet Twice a day for 30 days Active Trelegy Ellipta Acti ve Finasteride 5 MG 1 tablet Orally Once a day for 30 day(s) Active Carvedilol 6.25 MG 1 tablet with food Orally Twice a day for 30 day(s) Not-Taking Alendronate Sodium 70 MG 1 tablet 30 min utes before the first food, beverage or medicine of the day with plain water Orally for 30 day(s) Active Social History Tobacco [...] Status Risk Notes Problem Ulcer of toe (627289930 ) Non-pressure chronic ulcer of other part of left foot limited to breakdown of skin (L97.521) Active confirmed Problem Ulcer of toe (771475430 ) Non-pressure chronic ulcer of other part of right foot limited to breakdown of skin (L97.511) Active confirmed Problem Ulcer of toe of left foot (disorder) (897313734 27320681) Skin ulcer of toe of left foot, limited to breakdown of skin (L97.521) Active confirmed Nonapplicable Vital Signs Blood pressure diastolic 68 mm Hg 10/08/2023 Height 5 ft 6 in in 10/08/2023 Blood pressure systolic 124 mm Hg 10/08/2023 Weight 158 lbs 10/08/2023 BMI 25.50 kg/m2 10/08/2023 Procedures Procedure Date Ordered Date Performed Result Body Sit e 43812- Debride <25 sq cm 10/08/2023 N/A Encounters Encounter Location Date Provider Diagnosis [facility] [address] [address] 10/08/2023 Maria Black Skin ulcer of toe of left foot, limited to breakdown of skin L97.521 Assessments Encounter Date Diagnosis (ICD Code) Assessment Notes Treatment Notes Treatment Clinical Notes Section Notes 10/08/2023 Skin ulcer of toe of left foot, limited to breakdown of skin (ICD-10 - L97.521) Nonapplicable Patient Educated with: WOUND CARE INSTRUCTIONS.p df (WOUND CARE INSTRUCTIONS.p df) 10/08/2023 Other Plan Of Treatment Pending Test Test Name Order Date [id number]-YDHTSTH NAIL, 6 OR MORE 01/25/2023 15543-GELGQSM NAIL, 6 OR MORE 09/20/2023 94833-Mqadfpnx Plate 09/20/2023 88119-Eqlknelq Plate 02/13/2022 12129-Ywcpkcsm Plate 01/11/2023 12894-Cspkdscg Plate Each Additional 07/2021 38831- Debride <25 sq cm 01/25/2023 60492- Debride <25 sq cm 03/02/2022 77319- Debride <25 sq cm 10/08/2023 Insurance Providers Payer Name Payer Address Payer Phone Subscriber Number Group Number Insured Name Patient Relationship to Insured Coverage Start Date Coverage End Date Medicare National Govt [employer] [address] [place] [address] [id number] Deacon Keyes Self - [facility] [address] [place] [address] [phone] [id number] Deacon Keyes Self - patient is the insured Medical (General) History Medical History History ICD Code Cancer Gout Measles Chicken pox acute Stroke Surgical History Surgery Date(Month/Year) pacemaker 2021 Hospitalization History Reason Date(Month/Year) [facility] [place]/07
--- OUTSIDE RECORDS SUMMARY | 2024-09-25 16:32 | XMS_ITS | Encounter Summary ---
Author Organization [facility] Address [address] [place] [address] Care Team Providers Care Accounting Coordinator Name Role Phone Royal Pierre MD Primary Care Provider [phone] Chel Montilla MD Unavailable Nubia Preston PA-C Unavailable Unavailab Joseph Thompson MD Unavailable [phone] Devika Bashir NP Unavailable Unavailable [facility], Pcp Primary Care Provider Unavailabl e Reason for Visit * Reason Comments E-prescribe Rx Request Encounter Details Date Type Department Care Team Description 08/29/2021 Refill Adult Medicine [address] [phone] Raya Guillen NP E-prescribe Rx Request Social History Tobacco Use [...] have Coronavirus / COVID-19? No / Unsure 08/23/2021 10:52 AM EST documented as of this encounter Miscellaneous Notes * Telephone Encounter - Adenike Chavez M.A. - 08/29/2021 1:53 PM EST Lab Results Component Value Date CHOL 113 01/22/2021 LDL 33 01/22/2021 HDL 58 01/22/2021 TRIG 114 01/22/2021 SGOT 17 01/22/2021 SGPT 35 01/22/2021 PRICILLA w/PCP 04/2021 Next OV 2021 w/PCP * Telephone Encounter - Chantal Gavin - 08/29/2021 11:34 AM EST Patient would like script to be: E-PRESCRIBED/FAXED TO PHARMACY WHEN WAS THE PATIENT'S LAST APPOINTMENT IN ADULT MEDICINE? 04/25/21 WHEN WAS THE LAST TIME THE PATIENT SAW THEIR PCP? 04/25/21 Does patient have an upcoming appointment? Yes 09/27/21 (THE MEDICATION REQUESTED IS ON THE MED LIST ABOVE) All of the medications requested were on the CURRENT MEDS list Did you check the Pharmacy information above?: YES Patient wants: 90 -day supply Is this a mail order prescription request ? NO If the refill is from a FAXED refill request what is the RX # listed on the fax? N/A Patients current insurance carrier is: [place] / [place] / Product Type: MEDICARE [id number] documented in this encounter Plan of Treatment Not on file documented as of this encounter Visit Diagnoses Not on filedocumented in this encounter Care Teams Accounting Coordinator Relationship Specialty Start Date End Date Royal Pierer MD [address] [place] [address] PCP - General Internal Medicine 07/21/20 [facility] [address] [place] [address] PCP - General Internal Medicine 12/28/23 Chel Montilla MD [address] [place] [address] Specialist Cardiology 02/25/21 Nubia Preston PA-C [address] [place] [address] Cardiology 05/24/21 01/28/23 Joseph Berg MD [address] [place] [address] Specialist Cardiology 01/24/23 Devika Bashir NP [address] [place] [address] Cardiology 01/29/23 documented as of this encounter
--- OUTSIDE RECORDS SUMMARY | 2024-09-25 16:32 | XMS_ITS | Encounter Summary ---
Author Organization [facility] Address [address] [place] [address] Care Team Providers Care Marker Machine Attendant Name Role Phone Anthony Whittaker MD Primary Care Provider Royal Pierre MD Primary Care Provider [phone] Chel Montilla MD Unavailable Nubia Preston PA-C Unavailable Unavailab Joseph Thompson MD Unavailable [phone] Devika Bashir NP Unavailable Unavailable [facility], Pcp Primary Care Provider Unavailabl e Reason for Visit * Reason Onset Date Comments Call From Office 10/07/2019 Encounter Details Date Type Department Care Team Description 10/07/2019 Telephone Adult [address] [phone] Anthony Whittaker MD [address] [place] [address] [phone] Call From Md Office Social History Tobacco Use Types Packs/Day Years [...] encounter Miscellaneous Notes * Telephone Encounter - Kimberly StoreyDada - 10/07/2019 3:36 PM EDT Lorene Stone calling to let Dr. Encinas know that patient canceled appt, with out reschedule documented in this encounter Plan of Treatment Not on file documented as of this encounter Visit Diagnoses Not on filedocumented in this encounter Care Teams Marker Machine Attendant Relationship Specialty Start Date End Date Anthony Whittaker MD [address] [place] [address] PCP - General 10/09/1995 07/20/20 Royal Pierre MD [address] [place] [address] PCP - General Internal Medicine 07/21/20 12/27/23 [facility], Pcp [address] [place] [address] PCP - General Internal Medicine 12/28/23 Chel Montilla MD [address] [place] [address] Specialist Cardiology 02/25/21 Nubia Preston PA-C [address] [place] [address] Cardiology 05/24/21 01/28/23 Joseph Berg MD [address] [place] [address] Specialist Cardiology 01/24/23 Devika Bashir NP [address] [place] [address] Cardiology 01/29/23 documented as of this encounter
--- OUTSIDE RECORDS SUMMARY | 2024-09-25 16:32 | XMS_ITS | Encounter Summary ---
Author Organization [facility] Address [address] [place] [address] Care Team Providers Care Used Building Materials Yard Worker Name Role Phone Royal Pierre MD Primary Care Provider [phone] Chel Montilla MD Unavailable Nubia Preston PA-C Unavailable Unavailab Joseph Thompson MD Unavailable [phone] Devika Bashir NP Unavailable Unavailable [facility], Pcp Primary Care Provider Unavailabl e Encounter Details Date Type Department Care Team Description 01/20/2022 SCAN Medical Records [address] [place] [address] Abstract, Provider Social History Tobacco Use Types [...] Recorded In the last 10 days, have sheila diego been in contact with someone who was confirmed or suspected to have Coronavirus/COVID-19? No / Unsure 01/11/2022 10:49 AM EDT documented as of this encounter Plan of Treatment Not on file documented as of this encounter Procedures Procedure Name Priority Date/Time Associated Diagnosis Comments OUTSIDE PLAIN FILM Routine 01/20/2022 documented in this encounter Results * OUTSIDE PLAIN FILM (01/20/2022) Provider Default RADIOLOGY documented in this encounter Visit Diagnoses Not on filedocumented in this encounter Care Teams Used Building Materials Yard Worker Relationship Specialty Start Date End Date Royal Pierre MD [address] [place] [address] PCP - General Internal Medicine 07/21/20 12/27/23 [facility], Pcp [address] [place] [address] PCP - General Internal Medicine 12/28/23 Chel Montilla MD [address] [place] [address] Specialist Cardiology 02/25/21 Nubia Preston PA-C [address] [place] [address] Cardiology 05/24/21 01/28/23 Joseph Berg MD [address] [place] [address] Specialist Cardiology 01/24/23 Devika Bashir NP [address] [place] [address] Cardiology 01/29/23 documented as of this encounter
--- OUTSIDE RECORDS SUMMARY | 2024-09-25 16:32 | XMS_ITS | Encounter Summary ---
Author Organization [facility] Address [address] [place] [address] Care Team Providers Care Form Setter Steel Forms Name Role Phone Royal Pierre MD Primary Care Provider [phone] Chel Montilla MD Unavailable Joseph Berg MD Unavailable [phone] Devika Bashir LOCKSTITCH CUP SETTER Unavailable Unavailable [facility], Pcp Primary Care Provider Unavailabl e Encounter Details Date Type Department Care Team Description 12/12/2023 Diamond Polisher Report Medical Records [address] [place] [address] Leila Merida MD Social History Tobacco Use Types Packs/Day [...] on filedocumented in this encounter Care Teams Form Setter Steel Forms Relationship Specialty Start Date End Date Royal Pierre MD [address] [place] [address] [phone] PCP - General Internal Medicine 07/21/20 12/27/23 [facility], Pcp [address] [place] [address] PCP - General Internal Medicine 12/28/23 Chel Montilla MD [address] [place] [address] [phone] Specialist Cardiology 02/25/21 Joseph Berg MD [address] [place] [address] Specialist Cardiology 01/24/23 Devika Bashir NP [address] [place] [address] Cardiology 01/29/23 documented as of this encounter
--- OUTSIDE RECORDS SUMMARY | 2024-09-25 16:32 | XMS_ITS | Encounter Summary ---
Author Organization [facility] Address [address] [place] [address] Care Team Providers Care Java Consultant Name Role Phone Royal Pierre MD Primary Care Provider [phone] Chel Montilla MD Unavailable Nubia Preston PA-C Unavailable Unavailab Joseph Thompson MD Unavailable [phone] Devika Bashir NP Unavailable Unavailable [facility], Pcp Primary Care Provider Unavailabl e Reason for Visit * Reason Comments E-prescribe Rx Request Encounter Details Date Type Department Care Team Description 08/28/2021 Refill Adult Medicine [address] [phone] Raya Guillen NP E-prescribe Rx Request Social [...] Encounter - Adenike Chavez M.A. - 08/29/2021 1:44 PM EST Lab Results Component Value Date CHOL 113 01/22/2021 LDL 33 01/22/2021 HDL 58 01/22/2021 TRIG 114 01/22/2021 SGOT 17 01/22/2021 SGPT 35 01/22/2021 PRICILLA w/PCP 04/2021 Next OV 2021 w/PCP * Telephone Encounter - Ness Bustamante - 08/29/2021 12:13 PM EST Duplicate request documented in this encounter Plan of Treatment Not on file documented as of this encounter Visit Diagnoses Not on filedocumented in this encounter Care Teams Java Consultant Relationship Specialty Start Date End Date Royal Pierre MD [address] [place] [address] PCP - General Internal Medicine 07/21/20 12/27/23 [facility], Pcp [address] [place] [address] PCP - General Internal Medicine 12/28/23 Chel Montilla MD [address] [place] [address] Specialist Cardiology 02/25/21 Nubia Preston PA-C [address] [place] [address] Cardiology 05/24/21 01/28/23 Joseph Berg MD [address] [place] [address] Specialist Cardiology 01/24/23 Devika Bashir NP [address] [place] [address] Cardiology 01/29/23 documented as of this encounter
--- OUTSIDE RECORDS SUMMARY | 2024-09-25 16:32 | XMS_ITS | Encounter Summary ---
Author Organization [facility] Address [address] [place] [address] Care Team Providers Care Customer Account Technician Name Role Phone Anthony Whittaker MD Primary Care Provider [phone] Royal Pierre MD Primary Care Provider Chel Montilla MD Unavailable Nubia Preston PA-C Unavailable Unavailab Joseph Thompson MD Unavailable [phone] Devika Bashir NP Unavailable [facility], [facility]cp Primary Care Provider Unavailabl e Reason for Visit * Reason Onset Date Comments LAB WORK 04/09/2020 Encounter Details Date Type Department Care Team Description 04/09/2020 Telephone Adult Medicine [address] [phone] Anthony Whittaker MD [address] [place] [address] LAB WORK Social History Tobacco Use Types Packs/Day Years [...] or suspected to have Coronavirus / COVID-19? Unable to assess 03/29/2020 1:14 PM EDT documented as of this encounter Miscellaneous Notes * Telephone Encounter - Carla Rubio - 04/09/2020 10:35 AM EDT Pt would like a lab slip to have his lab work done at [facility] Cbc with auto diff, rbc,lipids documented in this encounter Plan of Treatment Not on file documented as of this encounter Visit Diagnoses Not on filedocumented in this encounter Care Teams Customer Account Technician Relationship Specialty Start Date End Date Anthony Whittaker MD [address] [place] [address] PCP - General 10/09/1995 07/20/20 Royal Pierre MD [address] [place] [address] PCP - General Internal Medicine 07/21/20 12/27/23 [facility] [address] [place] [address] PCP - General Internal Medicine 12/28/23 Chel Montilla MD [address] [place] [address] Specialist Cardiology 02/25/21 Nubia Preston PA-C [address] [place] [address] Cardiology 05/24/21 01/28/23 Joseph Berg MD [address] [place] [address] Specialist Cardiology 01/24/23 Devika Bashir NP [address] [place] [address] Cardiology 01/29/23 documented as of this encounter
--- OUTSIDE RECORDS SUMMARY | 2024-09-25 16:32 | XMS_ITS | Encounter Summary ---
Author Organization [facility] Address [address] [place] [address] Care Team Providers Care Horse Racing Analyst Name Role Phone Anthony Whittaker MD Primary Care Provider Royal Pierre MD Primary Care Provider [phone] Chel Montilla MD Unavailable Nubia Preston PA-C Unavailable Unavailab Joseph Thompson MD Unavailable [phone] Devika Bashir NP Unavailable Unavailable [facility], Pcp Primary Care Provider Unavailabl e Reason for Visit * Reason Onset Date Comments TEST RESULTS 04/21/2020 Encounter Details Date Type Department Care Team Description 04/21/2020 Telephone Adult Medicine [address] [address] Reno Marie PA-C [address] [place] [address] TEST RESULTS Social History Tobacco Use Types Packs/Day Years [...] encounter Miscellaneous Notes * Telephone Encounter - Reno Marie PA-C - 04/21/2020 4:58 PM EDT I reviewed the CT. The patient has a couple of interesting lesions. One is around the posterior medial aspect of the knee near the Pez anserine tendons. It is felt to be some sort of inflammatory type process. The radiologist gave a fairly broad differential diagnosis. Also has another similar lesion around the anterior inferior aspect of the knee probably in infrapatellar bursitis although it isdifficult for me to say without having seen the patient. I suggested following up with the orthopedist. He may be a candidate for injection of these areas. I will send a copy of the results to scan and will fax to the orthopedist as well. Reno Marie PA-C * Telephone Encounter - Alis Lemos M.A. - 04/21/2020 1:11 PM EDT Report received and placed on ordering providers desk, Reno please call as has a copy of report and is concerned with findings * Telephone Encounter - Alis Lemos M.A. - 04/21/2020 12:54 PM EDT I have checked all incoming mail in front office no reports Request sent to [facility] for [facility] report [place] [facility] [place], will fax to [facility] srinivas fax * Telephone Encounter - Emma Wick - 04/21/2020 10:45 AM EDT Inform patient: ANY URGENT OR ABNORMAL RESULTS WIILL RESULT IN A CALL BACK TO THE PATIENT TINO. Patient walked in. States that she has a copy of her husbands test results and is worried about cysts he has. States that she read the results . States [facility] gave her results so we should have received a copy Type of test: : Ultrasound of right knee Date test was performed: not sure of day Where was the test performed: [facility] Who ordered this test?: Reno Cynthia Is the doctor here today?: YES Can the message wait until the doctor returns?: NO IF PATIENT'S PCP IS NOT IN INSTRUCT PATIENT THAT THEY WILL RECEIVE A CALL BACK WHEN THE PCP IS IN THE OFFICE NEXT. documented in this encounter Plan of Treatment Not on file documented as of this encounter Visit Diagnoses Not on filedocumented in this encounter Care Teams Horse Racing Analyst Relationship Specialty Start Date End Date Anthony Whittaker MD [address] [place] [address] PCP - General 10/09/1995 07/20/20 Royal Pierre MD [address] [place] [address] PCP - General Internal Medicine 07/21/20 12/27/23 [facility] [address] [place] [address] PCP - General Internal Medicine 12/28/23 Chel Montilla MD [address] [place] [address] Specialist Cardiology 02/25/21 Nubia Preston PA-C [address] [place] [address] Cardiology 05/24/21 01/28/23 Joseph Berg MD [address] [place] [address] Specialist Cardiology 01/24/23 Devika Bashir NP [address] [place] [address] Cardiology 01/29/23 documented as of this encounter
--- OUTSIDE RECORDS SUMMARY | 2024-09-25 16:32 | XMS_ITS | Encounter Summary ---
Author Organization [facility] Address [address] [place] [address] Care Team Providers Care Burial Vault Setter Name Role Phone Anthony Whittaker MD Primary Care Provider [phone] Royal Pierre MD Primary Care Provider [phone] Chel Montilla MD Unavailable Nubia Preston PA-C Unavailable Unavailab Joseph Thompson MD Unavailable [phone] Devika Bashir NP Unavailable Unavailable [facility], Pcp Primary Care Provider Unavailabl e Reason for Visit * Reason Onset Date Comments Faxed Refill 03/03/2020 Encounter Details Date Type Department Care Team Description 03/03/2020 Refill Adult Medicine [address] [address] Anthony Whittaker MD [address] [place] [address] Faxed Refill Social History Tobacco Use Types Packs/Day Years [...] encounter Miscellaneous Notes * Telephone Encounter - Gee Villalta M.A. - 03/04/2020 3:27 PM EDT Faxed to pharmacy * Telephone Encounter - Erica Gleason M.A. - 03/04/2020 2:31 PM EDT Lab Results Component Value Date CHOL 112 06/18/2019 LDL 47 06/18/2019 HDL 48 06/18/2019 TRIG 89 06/18/2019 SGOT 21 06/18/2019 SGPT 44 06/18/2019 * Telephone Encounter - Girish Guillen - 03/04/2020 9:23 AM EDT Patient calling to check on the status of his medication refill request. * Telephone Encounter - Emma Wick - 03/03/2020 4:20 PM EDT Patient would like script to be: E-PRESCRIBED/FAXED TO PHARMACY WHEN WAS THE PATIENT'S LAST APPOINTMENT IN ADULT MEDICINE? 01/07/20 WHEN WAS THE LAST TIME THE PATIENT SAW THEIR PCP? Same as above Does patient have an upcoming appointment? 07/20/20 (THE MEDICATION REQUESTED IS ON THE MED [...] / Plan: [place] / Product Type: MEDICARE [id number] documented in this encounter Plan of Treatment Not on file documented as of this encounter Visit Diagnoses Not on filedocumented in this encounter Care Teams Burial Vault Setter Relationship Specialty Start Date End Date Anthony Whittaker MD [address] [place] [address] PCP - General 10/09/1995 07/20/20 Royal Pierre MD [address] [place] [address] PCP - General Internal Medicine 07/21/20 12/27/23 [facility], [place] [phone] PCP - General Internal Medicine 12/28/23 Chel Montilla MD [address] [place] [address]70 Specialist Cardiology 02/25/21 Nubia Preston PA-C [address] [place] [address]654 Cardiology 05/24/21 01/28/23 Joseph Berg MD [address] [place] [address] Specialist Cardiology 01/24/23 Devika Bashir NP [address] [place] [address]56 Cardiology 01/29/23 documented as of this encounter
--- OUTSIDE RECORDS SUMMARY | 2024-09-25 16:32 | XMS_ITS | Encounter Summary ---
Author Organization [facility] Address [address] [place] [address] Care Team Providers Care Director Of Dance Name Role Phone Anthony Whittaker MD Primary Care Provider Royal Pierre MD Primary Care Provider [phone] Chel Montilla MD Unavailable Nubia Preston PA-C Unavailable Unavailab Joseph Thompson MD Unavailable [phone] Devika Bashir NP Unavailable Unavailable [facility], Pcp Primary Care Provider Unavailabl e Encounter Details Date Type Department Care Team Description 11/11/2011 Hospital Medical Records [address] [place] [address] Jase Sandra MD Social History Tobacco Use Types Packs/Day [...] in this encounter Care Teams Director Of Dance Relationship Specialty Start Date End Date Anthony Whittaker MD [address] [place] [address] PCP - General 10/09/1995 07/20/20 Royal Pierre MD [address] [place] [address] PCP - General Internal Medicine 07/21/20 12/27/23 [facility], Pcp [address] [place] [address] PCP - General Internal Medicine 12/28/23 Chel Montilla MD [address] [place] [address] Specialist Cardiology 02/25/21 Nubia Preston PA-C [address] [place] [address] Cardiology 05/24/21 01/28/23 Joseph Berg MD [address] [place] [address] Specialist Cardiology 01/24/23 Devika Bashir NP [address] [place] [address] Cardiology 01/29/23 documented as of this encounter
--- OUTSIDE RECORDS SUMMARY | 2024-09-25 16:32 | XMS_ITS | Encounter Summary ---
Author Organization [facility] Address [address] [place] [address] Care Team Providers Care Community Resource Officer Name Role Phone Royal Pierre MD Primary Care Provider [phone] Chel Montilla MD Unavailable Nubia Preston PA-C Unavailable Unavailab Joseph Thompson MD Unavailable [phone] Devika Bashir NP Unavailable Unavailable [facility], Pcp Primary Care Provider Unavailabl e Encounter Details Date Type Department Care Team Description 01/20/2022 Hospital Medical Records [address] [place] [address] [facility] Social History Tobacco Use Types Packs/Day Years [...] on filedocumented in this encounter Care Teams Community Resource Officer Relationship Specialty Start Date End Date Royal Pierre MD [address] [place] [address] [phone] PCP - General Internal Medicine 07/21/20 12/27/23 [facility], Pcp [address] [place] [address] PCP - General Internal Medicine 12/28/23 Chel Montilla MD [address] [place] [address] Specialist Cardiology 02/25/21 Nubia Preston PA-C [address] [place] [address] Cardiology 05/24/21 01/28/23 Joseph Berg MD [address] [place] [address] Specialist Cardiology 01/24/23 Devika Bashir NP [address] [place] [address] Cardiology 01/29/23 documented as of this encounter
--- OUTSIDE RECORDS SUMMARY | 2024-09-25 16:32 | XMS_ITS | Encounter Summary ---
Author Organization [facility] Address [address] [place] [address] Care Team Providers Care Masseur/Masseuse Name Role Phone Royal Pierre MD Primary Care Provider [phone] Chel Montilla MD Unavailable Nubia Preston PA-C Unavailable Unavailab Joseph Thompson MD Unavailable [phone] Devika Bashir NP Unavailable Unavailable [facility], Pcp Primary Care Provider Unavailabl e Reason for Visit * Reason Onset Date Comments hospital follow up 12/08/2021 Encounter Details Date Type Department Care Team Description 12/08/2021 Telephone Adult Medicine [address] [phone] Royal Pierre MD [address] [place] [address] [phone] hospital follow up Social History Tobacco Use Types Packs/Day Years [...] suspected to have Coronavirus/COVID-19? No / Unsure 11/28/2021 1:15 PM EDT documented as of this encounter Miscellaneous Notes * Telephone Encounter - Olive Valladares - 12/09/2021 1:33 PM EDT Called and left vm to return my call. * Telephone Encounter - Alexey Alas - 12/08/2021 2:41 PM EDT Can you please schedule hospital follow up for this patient? documented in this encounter Plan of Treatment Not on file documented as of this encounter Visit Diagnoses Not on filedocumented in this encounter Care Teams Masseur/Masseuse Relationship Specialty Start Date End Date Royal Pierre MD [address] [place] [address] PCP - General Internal Medicine 07/21/20 12/27/23 [facility], Pcp [address] [place] [address] PCP - General Internal Medicine 12/28/23 Chel Montilla MD [address] [place] [address] Specialist Cardiology 02/25/21 Nubia Preston PA-C [address] [place] [address] Cardiology 05/24/21 01/28/23 Joseph Berg MD [address] [place] [address] Specialist Cardiology 01/24/23 Devika Bashir NP [address] [place] [address] Cardiology 01/29/23 documented as of this encounter
--- OUTSIDE RECORDS SUMMARY | 2024-09-25 16:32 | XMS_ITS | Encounter Summary ---
Author Organization [facility] Address [address] [place] [address] Care Team Providers Care Outbound Sales Representative Name Role Phone Royal Pierre MD Primary Care Provider [phone] Chel Montilla MD Unavailable Nubia Preston PA-C Unavailable Unavailab Joseph Thompson MD Unavailable [phone] Devika Bashir NP Unavailable Unavailable [facility], Pcp Primary Care Provider Unavailabl e Encounter Details Date Type Department Care Team Description 01/20/2022 Hospital Medical Records [address] [place] [address] [facility] Social History Tobacco Use Types Packs/Day [...] on filedocumented in this encounter Care Teams Outbound Sales Representative Relationship Specialty Start Date End Date Royal Pierre MD [address] [place] [address] [phone] PCP - General Internal Medicine 07/21/20 12/27/23 [facility], Pcp [address] [place] [address] PCP - General Internal Medicine 12/28/23 Chel Montilla MD [address] [place] [address] Specialist Cardiology 02/25/21 Nubia Preston PA-C [address] [place] [address] Cardiology 05/24/21 01/28/23 Joseph Berg MD [address] [place] [address] Specialist Cardiology 01/24/23 Devika Bashir NP [address] [place] [address] Cardiology 01/29/23 documented as of this encounter
--- OUTSIDE RECORDS SUMMARY | 2024-09-25 16:32 | XMS_ITS | Encounter Summary ---
Author Organization [facility] Address [address] [place] [address] Care Team Providers Care Barrel Waterer Name Role Phone Anthony Whittaker MD Primary Care Provider Royal Pierre MD Primary Care Provider Chel Montilla MD Unavailable Nubia Preston PA-C Unavailable Unavailab Joseph Thompson MD Unavailable [phone] Devika Bashir NP Unavailable Unavailable [facility], Pcp Primary Care Provider Unavailabl e Encounter Details Date Type Department Care Team Description 04/26/2020 Orders Only Adult Medicine [address] [phone] Reno Marie PA-C [address] [place] [address] [phone] Soft tissue mass Social History Tobacco Use Types Packs/Day Years [...] Procedure Name Priority Date/Time Associated Diagnosis Comments CONTRAST CAT SCAN OF LEG Routine 04/16/2020 Soft tissue mass documented in this encounter Results * CONTRAST CAT SCAN OF LEG (04/16/2020) Reno Marie PA-C CT [facility] [address] [place] [address] documented in this encounter Visit Diagnoses Diagnosis Soft tissue mass Disorders of soft tissue, unspecified documented in this encounter Care Teams Barrel Waterer Relationship Specialty Start Date End Date Anthony Whittaker MD [address] [place] [address] PCP - General 10/09/1995 07/20/20 Royal Pierre MD [address] [place] [address] PCP - General Internal Medicine 07/21/20 12/27/23 [facility], [address] [address] PCP - General Internal Medicine 12/28/23 Chel Montilla MD [address] [place] [address] Specialist Cardiology 02/25/21 Nubia Preston PA-C [address] [place] [address] Cardiology 05/24/21 01/28/23 Joseph Berg MD [address] [place] [address] Specialist Cardiology 01/24/23 Devika Bashir NP [address] [place] [address] Cardiology 01/29/23 documented as of this encounter
--- OUTSIDE RECORDS SUMMARY | 2024-09-25 16:32 | XMS_ITS | Encounter Summary ---
Author Organization [facility] Address [address] [place] [address] Care Team Providers Care Customer Leader Name Role Phone Anthony Whittaker MD Primary Care Provider [phone] Royal Pierre MD Primary Care Provider [phone] Chel Montilla MD Unavailable Nubia Preston PA-C Unavailable Unavailab Joseph Thompson MD Unavailable [phone] Devika Bashir NP Unavailable Unavailable [facility], Pcp Primary Care Provider Unavailabl e Encounter Details Date Type Department Care Team Description 10/17/2011 Conservation Technician Report Medical Records [address] [place] [address] Lee Gil MD Social History Tobacco Use [...] filedocumented in this encounter Care Teams Customer Leader Relationship Specialty Start Date End Date Anthony Whittaker MD [address] [place] [address] PCP - General 10/09/1995 07/20/20 Royal Pierre MD [address] [place] [address] [phone] PCP - General Internal Medicine 07/21/20 12/27/23 [facility], Pcp [address] [place] [address] PCP - General Internal Medicine 12/28/23 Chel Montilla MD [address] [place] [address] Specialist Cardiology 02/25/21 Nubia Preston PA-C [address] [place] [address] Cardiology 05/24/21 01/28/23 Joseph Berg MD [address] [place] [address] Specialist Cardiology 01/24/23 Devika Bashir NP [address] [place] [address] Cardiology 01/29/23 documented as of this encounter
--- OUTSIDE RECORDS SUMMARY | 2024-09-25 16:32 | XMS_ITS | Encounter Summary ---
Author Organization [facility] Address [address] [place] [address] Care Team Providers Care Mainspring Former Arbor End Name Role Phone Royal Pierre MD Primary Care Provider [phone] Chel Montilla MD Unavailable Joseph Berg MD Unavailable [phone] Devika Bashir FLOOR GRINDER Unavailable Unavailable [facility], Pcp Primary Care Provider Unavailabl e Encounter Details Date Type Department Care Team Description 07/03/2023 SCAN Medical Records [address] [place] [address] [facility] Social History Tobacco Use [...] on filedocumented in this encounter Care Teams Mainspring Former Arbor End Relationship Specialty Start Date End Date Royal Pierre MD [address] [place] [address] PCP - General Internal Medicine 07/21/20 12/27/23 [facility], Pcp [address] [place] [address]40 PCP - General Internal Medicine 12/28/23 Chel Montilla MD [address] [place] [address] [phone] Specialist Cardiology 02/25/21 Joseph Berg MD [address] [place] [address] [phone] Specialist Cardiology 01/24/23 Devika Bashir, AYUSH [address] [place] [address] Cardiology 01/29/23 documented as of this encounter
--- OUTSIDE RECORDS SUMMARY | 2024-09-25 16:32 | XMS_ITS | Encounter Summary ---
Author Organization [facility] Address [address] [place] [address] Care Team Providers Care Data Modeling Architect Name Role Phone Royal Pierre MD Primary Care Provider [phone] Chel Montilla MD Unavailable Nubia Preston PA-C Unavailable Unavailab Joseph Thompson MD Unavailable [phone] Devika Bashir NP Unavailable Unavailable [facility], Pcp Primary Care Provider Unavailabl e Encounter Details Date Type Department Care Team Description 08/15/2021 Ruffling Machine Operator Report Medical Records [address] [place] [address] Abstract, Provider Social History Tobacco Use Types [...] on filedocumented in this encounter Care Teams Data Modeling Architect Relationship Specialty Start Date End Date Royal Pierre MD [address] [place] [address] PCP - General Internal Medicine 07/21/20 12/27/23 [facility], Pcp [address] [place] [address] PCP - General Internal Medicine 12/28/23 Chel Montilla MD [address] [place] [address] [phone] Specialist Cardiology 02/25/21 Nubia Preston PA-C [address] [place] [address] Cardiology 05/24/21 01/28/23 Joseph Berg MD [address] [place] [address] Specialist Cardiology 01/24/23 Devika Bashir NP [address] [place] [address] Cardiology 01/29/23 documented as of this encounter
--- OUTSIDE RECORDS SUMMARY | 2024-09-25 16:32 | XMS_ITS | Encounter Summary ---
Author Organization [facility] Address [address] [place] [address] Care Team Providers Care Component Lab Tech Name Role Phone Royal Pierre MD Primary Care Provider Chel Montilla MD Unavailable Nubia Preston PA-C Unavailable Unavailab Joseph Thompson MD Unavailable Devika Bashir NP Unavailable Unavailable [facility], Pcp Primary Care Provider Unavailabl e Encounter Details Date Type Department Care Team Description 11/06/2021 Hospital Medical Records [address] [place], [place] [phone] [place] [address] Social History Tobacco Use Types Packs/Day Years [...] Date/Time Associated Diagnosis Comments OUTSIDE EKG Routine 11/06/[address] Routine 11/06/2021 OUTSIDE PLAIN FILM Routine 11/06/2021 OUTSIDE LAB Routine 11/06/2021 documented in this encounter Results * OUTSIDE PLAIN FILM (11/06/2021) Provider Abstract RADIOLOGY * OUTSIDE CT (11/06/2021) Provider Abstract RADIOLOGY * OUTSIDE LAB (11/06/2021) Provider Abstract LAB * OUTSIDE EKG (11/06/2021) Provider Abstract CARDIOLOGY documented in this encounter Visit Diagnoses Not on filedocumented in this encounter Care Teams Component Lab Tech Relationship Specialty Start Date End Date Royal Pierre MD [address] [place] [address] PCP - General Internal Medicine 07/21/20 12/27/23 [facility], Pcp [address] [place] [address] PCP - General Internal Medicine 12/28/23 Chel Montilla MD [address] [place] [address] Specialist Cardiology 02/25/21 Nubia Preston PASaimaC [address] [place] [address] Cardiology 05/24/21 01/28/23 Joseph Berg MD [address] [place] [address] Specialist Cardiology 01/24/23 Devika Bashir NP [address] [place] [address] Cardiology 01/29/23 documented as of this encounter
--- OUTSIDE RECORDS SUMMARY | 2024-09-25 16:32 | XMS_ITS | Encounter Summary ---
Author Organization [facility] Address [address] [place] [address] Care Team Providers Care Sheep Killer Name Role Phone Anthony Whittaker MD Primary Care Provider [phone] Royal Pierre MD Primary Care Provider [phone] Chel Montilla MD Unavailable Nubia Preston PA-C Unavailable Unavailab Joseph Thompson MD Unavailable [phone] Devika Bashir NP Unavailable Unavailable [facility], Pcp Primary Care Provider Unavailabl e Encounter Details Date Type Department Care Team Description 12/18/2019 Sword Swallower Report Medical Records [address] [place] [address] Husam Guerra MD Social History Tobacco Use [...] on filedocumented in this encounter Care Teams Sheep Killer Relationship Specialty Start Date End Date Anthony Whittaker MD [address] [place] [address] PCP - General 10/09/1995 07/20/20 Royal Pierre MD [address] [place] [address] PCP - General Internal Medicine 07/21/20 12/27/23 [facility], Pcp [address] [place] [address] PCP - General Internal Medicine 12/28/23 Chel Montilla MD [address] [place] [address] Specialist Cardiology 02/25/21 Nubia Preston PA-C [address] [place] [address] Cardiology 05/24/21 01/28/23 Joseph Berg MD [address] [place] [address] Specialist Cardiology 01/24/23 Devika Bashir NP [address] [place] [address] Cardiology 01/29/23 documented as of this encounter
--- OUTSIDE RECORDS SUMMARY | 2024-09-25 16:32 | XMS_ITS ---
Author Organization [facility] Address [address] [facility] [facility] [place] [address] Care Team Providers Care Grades 7 And 8 Teacher Name Role Phone Gabby JENSEN, [facility] Primary Care Provider Unav ailable Black, Maria Unavailable [phone] Allergies No Known Allergies REASON FOR VISIT Pcp- 06/25/23, Open sore - Toe Medications Medication SIG (Take, Route, Frequency, Duration) Notes Start Date End Date Status Allopurinol 100 MG 1 tablet Orally Once a day for 30 day(s) Active Trelegy Ellipta Acti ve Finasteride 5 MG 1 tablet Orally Once a day for 30 day(s) Active Carvedilol 6.25 MG 1 tablet with food Orally Twice a day for 30 day(s) Not-Taking Alendronate Sodium 70 MG 1 tablet 30 min utes before the first food, beverage or medicine of the day with plain water Orally for 30 day(s) Active Amiodarone HCl 400 MG 1 tablet Orally On ce a day Active Atorvastatin Calcium 40 MG 1 tablet Orally Once a day for 30 day(s) Active Aspirin 81 MG 1 tablet Orally Once a day for 30 day(s) Active Entresto 49-51 MG 1 tablet Orally Twic e a day for 30 day(s) Active Ciclopirox Olamine 0.77 % 1 application to affected area Externally to feet Twice a day for 30 days Active Social History Tobacco Use: Social History [...] Are you an other tobacco user? No Vital Signs Height 5 ft 6 in in 10/08/2023 Weight 158 lbs 10/08/2023 BMI 25.50 kg/m2 10/08/2023 Blood pressure systolic 124 mm Hg 10/08/19 24 Blood pressure diastolic 68 mm Hg 024 Procedures Procedure Date Ordered Date Performed Result Body Sit e 01336- Debride <25 sq cm 10/08/2023 N/A Encounters Encounter Location Date Provider Diagnosis [facility] [address] [place] [address] 10/08/2023 Maria Black Skin ulcer of toe [...] INSTRUCTIONS.p df) 10/08/2023 Other Plan Of Treatment Treatment Notes Assessment Notes Skin ulcer of toe of left fo ot, limited to breakdown of skin Patient Educated with: WOUND CARE INSTRUCTIONS.pdf (WOUND CARE INSTRUCTIONS.pdf) Pending Test Test Name Order Date 20071- Debride <25 sq cm 10/08/2023 Next Appt Details Follow Up: prn, Reason: Procedure Notes * Category Sub-Category Detail Notes Debride skin< 25 sq cm Open wound Physician of record performed open wound selective debridement of first 25 sq cm or less, of devitilized necrotic/nonviable soft tissue, fibrin, and exudate extending from the epidermis through the dermis, utilizing sharp dissection with sterile 15 blade, and/or tissue nippers. Sterile antibiotic dressing applied, ANESTHESIA- was accomplished TOPICALLY with Lidocaine Hydrochloride Jelly 2 percent. Hemostasis was achieved through direct pressure. Post debridement measurements: 4 mm x 2 mm x 2 mm. Character of the wound post debridement is stable (71813) Progress Notes * Deacon KEYESB:[birth year] (83 yo M)Acc No.[id number]:10/08/2023 Progress Note Patient:?Deacon Keyes Provider:?Maria Maurer DPM :1940???Age:83 Y???Sex:Male Nate e:10/08/2023 Address:[address] [place], [place] [id number] Pcp:Royal Pierre MD Subjective: * Chief Complaints: * ???Pcp- 06/25/23Open sore - Toe * HPI: ???Skin problems:?Treatments:?Topical abx.? * Medical History:? 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 * Examination: ???Dermatologic: ?ULCER:? LOCATIONMedial, TA, SIZE, 7mm X 4mm X 2mm, BASE, granular, RIM, hyperkeratotic, UNDERMINING, absent, TRACKING, Full thickness breakdown of skin, DRAINAGE, serosanguineous, mild, NECROTIC TISSUE, loosely-adherent, yellow slough, MALODOR, absent, CALOR, absent, ERYTHEMA, absent, PAIN ON PALPATION, absent.? Assessment: * Assessment: 1.?Skin ulcer of toe of left foot, limited to breakdown of skin - L97.521, Response to treatment, Nonapplicable? Plan: * Treatment: * Procedures:?Debride skin< 25 sq cm:?Open wound?Physician of record performed open wound selective debridement of first 25 sq cm or less, of devitilized necrotic/nonviable soft tissue, fibrin, and exudate extending from the epidermis through the dermis, utilizing sharp dissection with sterile 15 blade, and/or tissue nippers. Sterile antibiotic dressing applied, ANESTHESIA- was accomplished TOPICALLY with Lidocaine Hydrochloride Jelly 2 percent. Hemostasis was achieved through direct pressure. Post debridement measurements: 4 mm x 2 mm x 2 mm. Character of the wound post debridement is stable (43407).? * Procedure Codes:?11086 ACTIV E WOUND CARE/20 CM OR < * Preventive Medicine:? ??Counseling:?Ulcer:?A detailed plan of care was reviewed with the patient. We emphasized the fact that the patient takes on an active participating role in the treatment process and emphasized to them that they are an included, valued, and important member of the wound healing team in order to reach an expedient successful outcome. The patient agreed to follow their medically recommended diet while increasing their protein intake if safely able to do so, maintain proper bodily hydaration, abide by weight-bearing restrictions at all times, quit all current smoking habits if any, and diligently follow any/all dressing change instructions. It was clearly made known to the patient that if they fail to do their part, they will likely extend their course of treatment as well as possibly increase their risk of adverse events including amputation. The patient was instructed on importance of proper wound care consisting of pressure reduction, and proper maintainance of a moist wound environment. The patient is to cleanse the wound with warm soapy water/peroxide/saline, or betadine BID based on product availability. The patient is to apply ( Neosporin, Polysporin, or Triple, ) Antibiotic to the wound and cover with a DSD as directed. The patient was instructed to change dressings according to orders, or PRN saturation, leaks. The patient was instructed to monitor and report any signs or symptoms of infection or any untoward reactions. Precautions Taken: Offloading/Pressure reduction via rest/ limited activity to essential to daily life only, cane/ crutches/ walker/ knee scooter/ wheel chair, shoe modification, accommodative padding, sharp debridement, and take/apply medication as directed. THE GOALS of wound debridement to remove devitilized tissue, decrease risk for infection, promote wound healing and prevent further complication were discussed/reviewed. Debridement frequency as indicated.? * Follow Up:?prn * Images: * Sign off status: Completed true * Provider:?Maria Maurer DPM Date:?2023 Generated for Ángel palomo/Oni/Chapo on:?09/25/2024 04:31 PM EDT History and Physical Notes * HPI (History of Present Illness) Category Sub-Category Detail Notes Category Not es Skin problems Treatments: Topical abx Examination Category Sub-Category Detail Notes Category Not es Dermatologic ULCER: LOCATIONMedial, TA, SIZE, 7mm X 4mm X 2mm, BASE, granular, RIM, hyperkeratotic, UNDERMINING, absent, TRACKING, Full thickness breakdown of skin, DRAINAGE, serosanguineous, mild, NECROTIC TISSUE, loosely-adherent, yellow slough, MALODOR, absent, CALOR, absent, ERYTHEMA, absent, PAIN ON PALPATION, absent
--- OUTSIDE RECORDS SUMMARY | 2024-09-25 16:32 | XMS_ITS | Encounter Summary ---
Author Organization [facility] Address [address] [place] [address] Care Team Providers Care Calcine Furnace Loader Name Role Phone Anthony Whittaker MD Primary Care Provider Royal Pierre MD Primary Care Provider [phone] Chel Montilla MD Unavailable Nubia Preston PA-C Unavailable Unavailab Joseph Thompson MD Unavailable [phone] Devika Bashir NP Unavailable Unavailable [facility], Pcp Primary Care Provider Unavailabl e Reason for Visit * Reason Onset Date Comments REFERRAL 07/03/2019 Encounter Details Date Type Department Care Team Description 07/03/2019 Telephone Dermat[address] [place] [address] [phone] Hafsa Brito PA-C REFERRAL Social History Tobacco Use Types Packs/Day Years [...] encounter Miscellaneous Notes * Telephone Encounter - Cari Sarmiento - 07/03/2019 11:19 AM EST No insurance referral required per patient's insurance. Please verify if a referral is required before sending a request Thank you Cari Referrals Dept [facility] * Telephone Encounter - Yodit Cavanaugh - 07/03/2019 10:41 AM EST Request for a referral to a [facility] Specialist for a patient with a [facility] PCP. If patient does NOT have a [facility] PCP they must obtain a referral from their PCP before being seen-do not submit request to Referrals department-contact patient. Specialty patient is being referred to: Dermatology Name of Specialist patient is seeing: HAFSA BRITO Reason/diagnosis for visit: skin check hx of skin cancer Date of appoinment: 07/04/2019 If retro, date referral needs to start: n/a Anthony Wihttaker [place] / Product Type: MEDICARE [id number] documented in this encounter Plan of Treatment Not on file documented as of this encounter Visit Diagnoses Not on filedocumented in this encounter Care Teams Calcine Furnace Loader Relationship Specialty Start Date End Date Anthony Whittaker MD [address] [place] [address] PCP - General 10/09/1995 07/20/20 Royal Pierre MD [address] [place] [address] 12461 PCP - General Internal Medicine 07/21/20 12/27/23 [facility], Pcp [address] [place] [address] 45673 PCP - General Internal Medicine 12/28/23 Chel Montilla MD [address] [place] [address] Specialist Cardiology 02/25/21 Nubia Preston PA-C [address] [place] [address] Cardiology 05/24/21 01/28/23 Joseph Berg MD [address] [place] [address] Specialist Cardiology 01/24/23 Devika Bashir NP [address] [place] [address] Cardiology 01/29/23 documented as of this encounter
--- OUTSIDE RECORDS SUMMARY | 2024-09-25 16:32 | XMS_ITS | Encounter Summary ---
Author Organization [facility] Address [address] [place] [address] Care Team Providers Care Stock Analyst Name Role Phone Anthony Whittaker MD Primary Care Provider [phone] Royal Pierre MD Primary Care Provider [phone] Chel Montilla MD Unavailable Nubia Preston PA-C Unavailable Unavailab Joseph Thompson MD Unavailable [phone] Devika Bashir NP Unavailable Unavailable [facility], Pcp Primary Care Provider Unavailabl e Encounter Details Date Type Department Care Team Description 03/27/2017 Feature Writer Report Medical Records [address] [place] [address] Ken Allen MD Social History Tobacco Use Types Packs/Day Years Used Date Smoking Tobacco: Former Cigarettes Q uit: 12/20/1990 Smokeless Tobacco: Never Alcohol [...] on filedocumented in this encounter Care Teams Stock Analyst Relationship Specialty Start Date End Date Anthony Whittaker MD [address] [place] [address] PCP - General 10/09/1995 07/20/20 Royal Pierre MD [address] [place] [address] PCP - General Internal Medicine 07/21/20 12/27/23 [facility] Pcp [address] [place] [address] PCP - General Internal Medicine 12/28/23 Chel Montilla MD [address] [place] [address] Specialist Cardiology 02/25/21 Nubia Preston PA-C [address] [place] [address] Cardiology 05/24/21 01/28/23 Joseph Berg MD [address] [place] [address] Specialist Cardiology 01/24/23 Devika Bashir NP [address] [place] [address] Cardiology 01/29/23 documented as of this encounter
--- OUTSIDE RECORDS SUMMARY | 2024-09-25 16:32 | XMS_ITS | Encounter Summary ---
Author Organization [facility] Address [address] [place] [address] Care Team Providers Care Director Sales Name Role Phone Royal Pierre MD Primary Care Provider [phone] Chel Montilla MD Unavailable Nubia Preston PA-C Unavailable Unavailab Joseph Thompson MD Unavailable [phone] Devika Bashir NP Unavailable Unavailable [facility], Pcp Primary Care Provider Unavailabl e Reason for Visit * Reason Onset Date Comments medication problems 09/01/2022 Questions ab out Carvedilol (coreg) 6.25 Encounter Details Date Type Department Care Team Description 09/01/2022 Telephone Cardio [facility] Di[facility] Testing [address] [facility] [address] [place] [address] [phone] Chel Montilla MD [address] [place] [address] [phone] medication problems (Questions about Carvedilol (coreg) 6.25) Social History Tobacco Use Types Packs/Day Years [...] encounter Miscellaneous Notes * Telephone Encounter - Latoya Stern - 09/01/2022 3:35 PM EST Called pharmacist back and he wanted to ask if we knew pt was on Inhalers prescribed by his pulmonogist.The pharmacist was wondering If we were planning on changing his beta amber (carvediol) as he states His inhalers are not as effective. Told diana's that pt has been on this med for over 2 years and that we have no plans of changing it.dd * Telephone Encounter - Sarah Marie - 09/01/2022 11:47 AM EST Silvio from [facility], [address] [place] [address], has questions about Carvedilol (coreg) 6.25. Pls call [phone] documented in this encounter Plan of Treatment Not on file documented as of this encounter Visit Diagnoses Not on filedocumented in this encounter Care Teams Director Sales Relationship Specialty Start Date End Date Royal Pierre MD [address] [place] [address] PCP - General Internal Medicine 07/21/20 12/27/23 [facility], Pcp [address] [place] [address] PCP - General Internal Medicine 12/28/23 Chel Montilla MD [address] [place] [address] Specialist Cardiology 02/25/21 Nubia Preston PA-C [address] [place] [address] Cardiology 05/24/21 01/28/23 Joseph Berg MD [address] [place] [address] Specialist Cardiology 01/24/23 Devika Bashir NP [address] [place] [address] Cardiology 01/29/23 documented as of this encounter
--- OUTSIDE RECORDS SUMMARY | 2024-09-25 16:32 | XMS_ITS | Clinical Summary ---
Author Organization [facility] Address [address] [place] [address] Care Team Providers Care Litigation Manager Name Role Phone Chel Montilla MD Unavailable Joseph Berg MD Unavailable [phone] Devika Bashir NP Unavailable [facility]available [facility], Pcp Primary Care Provider Unavailabl e Allergies Active Allergy Reactions Severity Noted Date Comments No Known Drug Allergies 08/23/2021 Medications Medication Sig Dispensed Refills Start Date End Date Status nitroGLYCERIN (NITROSTAT) 0.[address] 1 Tab under the tongue every 5 minutes as needed for Chest pain. 20 Tab 3 02/14/2018 Active aspirin 81 MG chewable tablet Take 81 mg by mouth daily. 0 Active alendronate (FOSAMAX) 70 MG tablet Take 70 Tablets by mouth daily. 0 07/20/2021 Active ALENDRONATE-CHOLECAL CIFEROL OR Take 70 Tablets by mouth daily. 0 Active Calcium Carbonate-Vit D-Min (CALCIUM 1200 OR) Take 1 Tablet by mouth daily. 0 Active tamsulosin (FLOMAX) 0.4 MG 24 hr capsule Take 0.4 mg by mouth daily. Take 30 mins after same meal every day. 0 Active allopurinol (ZYLOPRIM) 100 MG tablet TAKE 1 TABLET BY MOUTH DAILY 90 Tablet 1 05/07/2023 Active amiodarone (PACERONE) 200 MG tablet Take 1 Tablet by mouth daily. 0 Active atorvastatin (LIPITOR) 40 MG tablet TAKE 1 TABLET BY MOUTH DAILY 90 Tablet 1 06/18/2023 Active clopidogrel (PLAVIX) 75 MG tablet Take 1 Tablet by mouth daily. 0 06/25/2023 Active Fluticasone-Salmeter ol (Advair Diskus) 250-50 MCG/ACT AEROSOL POWDER,BREATH ACTIVATED Inhale 1 Puff into the lungs 2 times daily. 0 06/28/2023 Active Calcium Carbonate 500 (200 Ca) MG Wafer Take by mouth. 0 06/28/2023 Active Cholecalciferol 25 MCG (1000 UT) Tab Take 1 Tablet by mouth daily. 60 Tablet 0 06/28/2023 Active Entresto 49-51 MG Tab TAKE 1 TABLET BY MOUTH TWICE DAILY 180 Tablet 2 12/31/2023 Active Active Problems Problem Noted Date CVA (cerebral vascular accident) 023 SOB (shortness of breath) 03/30/2023 VT (ventricular tachycardia) 03/30/2023 Last Assessment & Plan: This gentleman had a long run of ventricular tachycardia which fortunately self terminated. There is no clear reversible cause and he does have a large infarct with only very mild amount of ischemia. He would best be served with an upgrade to an ICD due to the large infarct, history of ventricular tachycardia recurrent syncope which places him at higher risk for sudden cardiac . I reviewed the pros and cons of the procedure as well as the potential risks and benefits. I discussed the alternative which is to continue with amiodarone and monitor with his pacemaker although it is clear that this may not completely avoid sudden cardiac from a ventricular arrhythmia that is sustained. Elected to go ahead with the upgrade. I am going to stop the amiodarone after the procedure and use a beta-amber. If he has additional therapy we can always restart the amiodarone or go to ablation. SSS (sick sinus syndrome) 09/25/2022 Overview: s/p pacer 2021 First degree AV block 11/29/2021 Bradycardia 11/09/2021 Syncope 08/25/2021 Last Assessment & Plan: Recurrent syncope due to bradycardia. Improved after pacemaker insertion and I suspect that he has sinus node dysfunction. Upgrade to ICD based on history of VT. Left to consider whether sarcoidosis is an option but he does not have heart block so we will treat empirically and then perform a PET/CT only if he develops heart block or as frequent VT. Prostate cancer 03/25/2021 Overview: [facility] Urology service with Dr. Guerar- bicalutamide initiated 03/11/21, radiation treatment at [facility] Ischemic cardiomyopathy 01/28/2021 Last Assessment & Plan: Stable without anginal or heart failure symptoms. We will continue current regimen. 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 Smith at [facility] Last Assessment & Plan: Stable coronary disease without active angina. An episode of VT which may or may not have been ischemically driven. The monomorphic nature of it and the very mild amount of ischemia on the PET scan was suggest it was not likely the trigger. I would continue with his antianginal and heart failure regimen as dictated by Dr. Montilla and continue a healthy diet. GOUT, UNSPECIFIED 08/24/2005 Resolved Problems Problem Noted Date Resolved Date Gallstone noted on CAT scan 201510/01/2015 04/02/2018 Immunizations Name Administration Dates Next Due ABRYSVO (RSV) PT REPORTED 04/17/2023 COVID-19 (Moderna) PT Reported 09/13/2020,2020 COVID-19 (Pfizer) 04/17/2023 Influenza (> 6 Months) 03/09/2016,2013,04/08/2013,03/31,04/02/2011,04/28/2010,04/03/2009 ,05/02/2008,04/23/2007,07/06/2005 Influenza Flu (PT Reported) 04/17/2023, 7,03/16/2015 Influenza H1N1 Pandemic Flu Vaccine 07/13/2009 Influenza vaccine high dose age 65 and over 04/17/2023,04/03/2022,04/13/2021,04/17,04/10/2019,04/23/2018,03/24/2017 ,03/09/2016,04/15/2014,04/08/2013,03/16,04/02/2011,04/28/2010, 9,05/02/2008,04/23/2007,07/06/2005 Pneumoccoccal(Adult) Polysac charide PPSV23 06/14/2006 Pneumococcal Conjugate PCV-13 12/01/2014 Shingrix (Recombinant zoster vaccine) 06/15/2020 ,04/01/2020 TD (STATE SUPPLIED FOR ADULT S AND CHILDREN) 02/23/2005 TETANUS/DIPTHERIA (ADULT) 02/23/2005 Tdap 06/02/2015 Zostavax 04/28/2010 Family History Relation Name Status Comments Brother Alive cabgkidney ca d m Father (Age 65) stroke htn Mother (Age 78) htn Sister Alive htn Social History Tobacco Use Types Packs/Day Years Used Date Smoking Tobacco: Former Cigarettes 2 25 0 07/16/1965 - 12/20/1990 Smokeless Tobacco: Never Tobacco Cessation:Counseling Given: Not Answered Alcohol Use Standard Drinks/Week Comments Yes 0 (1 standard drink = 0.6 oz pur e alcohol) occ beer Sex Assigned at Date Recorded Not on file Job Start Date Occupation Industry Not on file Not on file Not on file Last Filed Vital Signs Vital Sign Reading Time Taken Comments Blood Pressure 124/84 05/14/2023 3:32 PM EDT Pulse 72 06/28/2023 9:04 AM EST Temperature 36.6 ??C (97.8 ??F) 06/28/2023 9:04 AM ES T Respiratory Rate 14 06/28/2023 9:04 AM EST Oxygen Saturation 98% 05/14/2023 3:32 PM EDT Inhaled Oxygen Concentration - - Weight 74.4 kg (164 lb) 06/28/2023 9:04 AM EST Height 167.6 cm (5' 6 ) 05/14/2023 3:32 PM EDT Body Mass Index 26.47 05/14/2023 3:32 PM EDT Plan of Treatment Health Maintenance Due Date Last Done Comments DIABETES/HEART DISEASE: STONEY BARILLAS CHOLESTEROL (LDL) 09/19/2023 09/18/2022, 01/22/2021, 03/26/2020, Additional history exists Covid-19 Vaccine (2022-08 4 season) 2024 04/17/2023, 09/13/2020, 08/13/2020 INFLUENZA (#1) 2024 04/17/2023, 09/2022, 04/03/2022, Additional history exists DEPRESSION SCREEN 05/14/2024 05/14/2023 (Co mpleted), 05/14/2023, 04/03/2022, Additional history exists FALL RISK ASSESSMENT 05/14/2024 05/14/2023 (Completed), 04/03/2022, 04/03/2022, Additional history exists BMI CHECK/ADVISE 07/16/2024 06/28/2023, , 04/03/2022, Additional history exists DTAP/TDAP/TD (2 - Td or Tdap) 06/02/2025 06/02/2015, 02/23/2005 PNEUMOCOCCAL VACCINE Completed 12/01/2014, 06/14/20 06 SHINGLES VACCINE Discontinued 06/15/2020, , 04/28/2010 Care Teams Litigation Manager Relationship Specialty Start Date End Date [facility], Pcp PCP - General Internal Medicine 12/28/23 Chel Montilla MD Specialist Cardiology 02/25/21 Joseph Berg MD Specialist Cardiology 01/24/23 Devika Bashir NP Cardiology 01/29/23
--- OUTSIDE RECORDS SUMMARY | 2024-09-25 16:32 | XMS_ITS | Encounter Summary ---
Author Organization [facility] Address [address] [place] [address] Care Team Providers Care Senior Systems Developer Name Role Phone Anthony Whittaker MD Primary Care Provider Royal Pierre MD Primary Care Provider [phone] Chel Montilla MD Unavailable Nubia Preston PA-C Unavailable Unavailab Joseph Thompson MD Unavailable [phone] Devika Bashir NP Unavailable Unavailable [facility], Pcp Primary Care Provider Unavailabl e Encounter Details Date Type Department Care Team Description 05/16/2019 Tare Worker Report Medical Records [address] [place] [id number] [facility] Social History Tobacco Use Types [...] filedocumented in this encounter Care Teams Senior Systems Developer Relationship Specialty Start Date End Date Anthony Whittaker MD [address] [place] [address] PCP - General 10/09/1995 07/20/20 Royal Pierre MD [address] [place] [address] PCP - General Internal Medicine 07/21/20 12/27/23 [facility], Pcp [address] [place] [address] PCP - General Internal Medicine 12/28/23 Chel Montilla MD [address] [place] [address] Specialist Cardiology 02/25/21 Nubia Preston PA-C [address] [place] [address] Cardiology 05/24/21 01/28/23 Joseph eBrg MD [address] [place] [address] Specialist Cardiology 01/24/23 Devika Bashir NP [address] [place] [address] Cardiology 01/29/23 documented as of this encounter
--- OUTSIDE RECORDS SUMMARY | 2024-09-25 16:32 | XMS_ITS | Encounter Summary ---
Author Organization [facility] Address [address] [place] [address] Care Team Providers Care Flavoring Machine Operator Name Role Phone Royal Pierre MD Primary Care Provider [phone] Chel Montilla MD Unavailable Nubia Preston PA-C Unavailable Unavailab Joseph Thompson MD Unavailable [phone] Devika Bashir NP Unavailable Unavailable [facility], Pcp Primary Care Provider Unavailabl e Reason for Visit * Reason Onset Date Comments Hospital Procedure 12/21/2021 Primary Dual Pacemaker 7.8.22 Encounter Details Date Type Department Care Team Description 12/21/2021 Telephone Cardio PVC POC 154 [address] [facility] [address] [place] [address] Joseph Berg MD [address] [place] [address] [phone] Hospital Procedure (Primary Dual Pacemaker 7.8.22) Social History Tobacco Use Types Packs/Day Years [...] suspected to have Coronavirus/COVID-19? No / Unsure 12/22/2021 12:52 PM EDT documented as of this encounter Miscellaneous Notes * Telephone Encounter - Marvin Butler - 12/30/2021 8:21 AM EDT 12/30/21 Medicare/Hp [place] [id number] As long as insurnace does not changebtw now and 01/20/22 * Telephone Encounter - Heather Dong C.M.A. - 12/28/2021 3:27 PM EDT Primary Dual Pacemaker [id number] Dx SSS I49.5 w/ JPM at [facility] on 01.20.22 * Telephone Encounter - Heather Dong C.M.A. - 12/21/2021 12:03 PM EDT I gave JERRY EP order sheet to fill out appropriate vendors, tools and requirements to book procedure.[place] by I will book arturo. documented in this encounter Plan of Treatment Not on file documented as of this encounter Visit Diagnoses Diagnosis SSS (sick sinus syndrome) (HCC)- Primary Sinoatrial node dysfunction documented in this encounter Care Teams Flavoring Machine Operator Relationship Specialty Start Date End Date Royal Pierre MD [address] [place] [address] PCP - General Internal Medicine 07/21/20 12/27/23 [facility], Pcp [address] [place] [address] PCP - General Internal Medicine 12/28/23 Chel Montilla MD [address] [place] [address] Specialist Cardiology 02/25/21 Nubia Preston PA-C [address] [place], [place] [phone] Cardiology 05/24/21 01/28/23 Joseph Berg MD [address] [place] [address] Specialist Cardiology 01/24/23 Devika aBshir NP [address] [place] [address] Cardiology 01/29/23 documented as of this encounter
--- OUTSIDE RECORDS SUMMARY | 2024-09-25 16:32 | XMS_ITS | Encounter Summary ---
Author Organization [facility] Address [address] [place] [address] Care Team Providers Care Catalog Librarian Name Role Phone Anthony Whittaker MD Primary Care Provider [phone] Royal Pierre MD Primary Care Provider [phone] Chel Montilla MD Unavailable Nubia Preston PA-C Unavailable Unavailab Joseph Thompson MD Unavailable [phone] Devika Bashir NP Unavailable Unavailable [facility], Pcp Primary Care Provider Unavailabl e Encounter Details Date Type Department Care Team Description 11/11/2019 Contract Law Specialist Report Medical Records [address] [place] [address] Chel Montilla MD [address] [place] [address] [phone] Social History Tobacco Use Types Packs/Day Years [...] on filedocumented in this encounter Care Teams Catalog Librarian Relationship Specialty Start Date End Date Anthony Whittaker MD [address] [place] [address] [phone] PCP - General 10/09/1995 07/20/20 Royal Pierre MD [address] [place] [address] PCP - General Internal Medicine 07/21/20 12/27/23 [facility], Pcp [address] [place] [address] PCP - General Internal Medicine 12/28/23 Chel Montilla MD [address] [place] [address] Specialist Cardiology 02/25/21 Nubia Preston PA-C [address] [place] [address] Cardiology 05/24/21 01/28/23 Joseph Berg MD [address] [place] [address] Specialist Cardiology 01/24/23 Devika Bashir NP [address] [place], [place] [phone] Cardiology 01/29/23 documented as of this encounter
--- OUTSIDE RECORDS SUMMARY | 2024-09-25 16:32 | XMS_ITS | Encounter Summary ---
Author Organization [facility] Address [address] [place] [address] Care Team Providers Care High Court Justice Name Role Phone Anthony Whittaker MD Primary Care Provider [phone] Royal Pierre MD Primary Care Provider [phone] Chel Montilla MD Unavailable Nubia Preston PA-C Unavailable Unavailab Joseph Thompson MD Unavailable [phone] Devika Bashir NP Unavailable Unavailable [facility], Pcp Primary Care Provider Unavailabl e Encounter Details Date Type Department Care Team Description 04/02/2020 Orders Only Medical Records [address] [place] [address] Reno Marie PA-C [address] [place], [place] [phone] Social History Tobacco Use Types Packs/Day Years [...] Name Priority Date/Time Associated Diagnosis Comments OUTSIDE VASCULAR STUDY Routine 03/31/2020 documented in this encounter Results * OUTSIDE VASCULAR STUDY (03/31/2020) Reno Marie PA-C CARDIOLOGY documented in this encounter Visit Diagnoses Not on filedocumented in this encounter Care Teams High Court Justice Relationship Specialty Start Date End Date Anthony Whittaker MD [address] [place] [address] PCP - General 10/09/1995 07/20/20 Royal Pierre MD [address] [place] [address] PCP - General Internal Medicine 07/21/20 12/27/23 [facility], Pcp [address] [place] [address] PCP - General Internal Medicine 12/28/23 Chel Montilla MD [address] [place] [address] Specialist Cardiology 02/25/21 Nubia Preston PA-C [address] [place] [address] Cardiology 05/24/21 01/28/23 Joseph Berg MD [address] [place] [address] Specialist Cardiology 01/24/23 Devika Bashir NP [address] [place] [address] Cardiology 01/29/23 documented as of this encounter
--- OUTSIDE RECORDS SUMMARY | 2024-09-25 16:32 | XMS_ITS | Encounter Summary ---
Author Organization [facility] Address [address] [place] [address] Care Team Providers Care Heavy Antiarmor Weapons Infantryman Name Role Phone Royal Pierre MD Primary Care Provider [phone] Chel Montilla MD Unavailable Nubia Preston PA-C Unavailable Unavailab Joseph Thompson MD Unavailable [phone] Devika Bashir NP Unavailable Unavailable [facility], Pcp Primary Care Provider Unavailabl e Encounter Details Date Type Department Care Team Description 12/04/2022 Concrete Analyst Report Medical Records [address] [place] [address] Jocelynn Reese NP Social History Tobacco Use Types Packs/Day Years [...] on filedocumented in this encounter Care Teams Heavy Antiarmor Weapons Infantryman Relationship Specialty Start Date End Date Royal Pierre MD [address] [place] [address] [phone] PCP - General Internal Medicine 07/21/20 12/27/23 [facility], Pcp [address] [place] [address] PCP - General Internal Medicine 12/28/23 Chel Montilla MD [address] [place] [address] [phone] Specialist Cardiology 02/25/21 Nubia Preston PA-C [address] [place] [address] Cardiology 05/24/21 01/28/23 Joseph Berg MD [address] [place], [place] [phone] Specialist Cardiology 01/24/23 Devika Bashir NP [address] [place] [address] Cardiology 01/29/23 documented as of this encounter
--- OUTSIDE RECORDS SUMMARY | 2024-09-25 16:32 | XMS_ITS | Encounter Summary ---
Author Organization [facility] Address [address] [place] [address] Care Team Providers Care Roll Up Operator Name Role Phone Royal Pierre MD Primary Care Provider [phone] Chel Montilla MD Unavailable Joseph Berg MD Unavailable [phone] Devika Bashir DIRECTOR LIFE INSURANCE Unavailable Unavailable [facility], Pcp Primary Care Provider Unavailabl e Encounter Details Date Type Department Care Team Description 07/25/2023 Telephone Cardio PVC POC [address] [place] [address] Joseph Berg MD [address] [place] [address] [phone] Social History Tobacco Use Types Packs/Day Years [...] encounter Miscellaneous Notes * Telephone Encounter - Paulette Jackson - 07/25/2023 11:50 AM EST [facility] Cardiovascular cllaed and stated pateint is transferring device care to them. documented in this encounter Plan of Treatment Not on file documented as of this encounter Visit Diagnoses Not on filedocumented in this encounter Care Teams Roll Up Operator Relationship Specialty Start Date End Date Royal Pierre MD [address] [place] [address] PCP - General Internal Medicine 07/21/20 12/27/23 [facility], Pcp [address] [place] [address] PCP - General Internal Medicine 12/28/23 Chel Montilla MD [address] [place] [address] Specialist Cardiology 02/25/21 Joseph Berg MD [address] [place] [address] Specialist Cardiology 01/24/23 Devika Bashir NP [address] [place] [address] Cardiology 01/29/23 documented as of this encounter
--- OUTSIDE RECORDS SUMMARY | 2024-09-25 16:32 | XMS_ITS | Encounter Summary ---
Author Organization [facility] Address [address] [place] [address] Care Team Providers Care Big Data Admin Name Role Phone Royal Pierre MD Primary Care Provider [phone] Chel Montilla MD Unavailable Nubia Preston PA-C Unavailable Unavailab Joseph Thompson MD Unavailable [phone] Devika Bashir NP Unavailable Unavailable [facility], Pcp Primary Care Provider Unavailabl e Reason for Visit * Reason Comments Remote Device Check ALERT: 10 seconds [place] Encounter Details Date Type Department Care Team Description 01/15/2023 Remote Device Check Cardio PVC POC 154 300 [facility] [address] [place], [place] [phone] Joseph Berg MD [address] [place] [address] [phone] Social History Tobacco Use Types Packs/Day Years [...] suspected to have Coronavirus/COVID-19? No / Unsure 12/18/2022 2:48 PM EDT documented as of this encounter Plan of Treatment Not on file documented as of this encounter Visit Diagnoses Not on filedocumented in this encounter Care Teams Big Data Admin Relationship Specialty Start Date End Date Royal Pierre MD [address] [place] [address] PCP - General Internal Medicine 07/21/20 12/27/23 [facility], Pcp [address] [place] [address] PCP - General Internal Medicine 12/28/23 Chel Montilla MD [address] [place] [address] Specialist Cardiology 02/25/21 Nubia Preston PA-C [address] [place] [address] Cardiology 05/24/21 01/28/23 Joseph Berg MD [address] [place] [address] Specialist Cardiology 01/24/23 Devika Bashir NP [address] [place], [place] [phone] Cardiology 01/29/23 documented as of this encounter
== END 2024-09-25 13:46 | disposition home or self-care (01) ==
LOC: HO.HPS 13:04
PROVIDERS: PCP Internal Medicine; Visit Provider Hospitalist
DX: J41.0 Simple chronic bronchitis (principal); R91.8 Other nonspecific abnormal finding of lung field; T78.40XA Allergy, unspecified, initial encounter; J84.9 Interstitial pulmonary disease, unspecified; J84.10 Pulmonary fibrosis, unspecified
CPT/HCPCS: 99214; G2211

== ENCOUNTER 2024-09-25 13:57 | Outpatient (REF) | payer MEDICARE, OTHER, SELFPAY ==
[2024-09-25 15:46] LABS: Prostate Specific Antigen < 0.10 ng/mL (<0.05-4.0)
--- OUTSIDE RECORDS SUMMARY | 2024-09-25 17:44 | XMS_ITS | Encounter Summary ---
Author Organization [facility] Address [address] [place] [address] Care Team Providers Care Superintendent Electric Power Name Role Phone Anthony Whittaker MD Primary Care Provider [phone] Royal Pierre MD Primary Care Provider [phone] Chel Montilla MD Unavailable Nubia Preston PA-C Unavailable Unavailab Joseph Thompson MD Unavailable [phone] Devika Bashir NP Unavailable Unavailable [facility], Pcp Primary Care Provider Unavailabl e Encounter Details Date Type Department Care Team Description 05/13/2018 Public Relations Report Medical Records [address] [place] [address] Juice Aguilera PA-C [address] [place] [address] Social History Tobacco Use Types Packs/Day Years [...] on filedocumented in this encounter Care Teams Superintendent Electric Power Relationship Specialty Start Date End Date Anthony Whittaker MD [address] [place] [address] PCP - General 10/09/1995 07/20/20 Royal Pierre MD [address] [place] [address] PCP - General Internal Medicine 07/21/20 12/27/23 [facility], Pcp [address] [place] [address] PCP - General Internal Medicine 12/28/23 Chel Montilla MD [address] [place] [address] Specialist Cardiology 02/25/21 Nubia Preston PA-C [address] [place] [address] Cardiology 05/24/21 01/28/23 Joseph Berg MD [address] [place] [address] Specialist Cardiology 01/24/23 Devika Bashir NP [address] [place] [address] Cardiology 01/29/23 documented as of this encounter
--- OUTSIDE RECORDS SUMMARY | 2024-09-25 17:44 | XMS_ITS | Encounter Summary ---
Author Organization [facility] Address [address] [place] [address] Care Team Providers Care Bill Of Materials Clerk Name Role Phone Anthony Whittaker MD Primary Care Provider Royal Pierre MD Primary Care Provider Chel Montilla MD Unavailable Nubia Preston PA-C Unavailable Unavailab Joseph Thompson MD Unavailable [phone] Devika Bashir NP Unavailable Unavailable [facility], Pcp Primary Care Provider Unavailabl e Reason for Visit * Reason Onset Date Comments Laryngitis 02/12/2014 Encounter Details Date Type Department Care Team Description 02/12/2014 Telephone Adult Medicine [address] [phone] Anthony Whittaker MD [address] [place] [address] Laryngitis Social History Tobacco Use Types Packs/Day [...] / Plan: [place] / Product Type: MEDICARE [id number] documented in this encounter Plan of Treatment Not on file documented as of this encounter Visit Diagnoses Not on filedocumented in this encounter Care Teams Bill Of Materials Clerk Relationship Specialty Start Date End Date Anthony Whittaker MD [address] [place] [address] PCP - General 10/09/1995 07/20/20 Royal Pierre MD [address] [place] [address] PCP - General Internal Medicine 07/21/20 12/27/23 [facility], Pcp [address] [place] [address] PCP - General Internal Medicine 12/28/23 Chel Montilla MD [address] [place] [address] Specialist Cardiology 02/25/21 Nubia Preston PA-C [address] [place] [address] Cardiology 05/24/21 01/28/23 Joseph Berg MD [address] [place] [address] Specialist Cardiology 01/24/23 Devika Bashir NP [address] [place], [place] [phone] Cardiology 01/29/23 documented as of this encounter
--- OUTSIDE RECORDS SUMMARY | 2024-09-25 17:44 | XMS_ITS | Encounter Summary ---
Author Organization [facility] Address [address] [place] [address] Care Team Providers Care Mica Plate Layer Name Role Phone Anthony Whittaker MD Primary Care Provider [phone] Royal Pierre MD Primary Care Provider [phone] Chel Montilla MD Unavailable Nubia Preston PA-C Unavailable Unavailab Joseph Thompson MD Unavailable [phone] Devika Bashir NP Unavailable Unavailable [facility], Pcp Primary Care Provider Unavailabl e Encounter Details Date Type Department Care Team Description 11/12/2011 Hospital Medical Records [address] [place] [address] Mo Valentin MD [address] [place] [address] [phone] Social History Tobacco Use Types Packs/Day Years [...] on filedocumented in this encounter Care Teams Mica Plate Layer Relationship Specialty Start Date End Date Anthony Whittaker MD [address] [place] [address] [phone] PCP - General 10/09/1995 07/20/20 Royal Pierre MD [address] [place] [address] PCP - General Internal Medicine 07/21/20 12/27/23 [facility], Pcp [address] [place] [address] PCP - General Internal Medicine 12/28/23 Chel Montilla MD [address] [place] [address] Specialist Cardiology 02/25/21 Nubia Preston PA-C [address] [place] [address] Cardiology 05/24/21 01/28/23 Joseph Berg MD [address] [place] [address] Specialist Cardiology 01/24/23 Devika Bashir NP [address] [place], [place] [phone] Cardiology 01/29/23 documented as of this encounter
--- OUTSIDE RECORDS SUMMARY | 2024-09-25 17:44 | XMS_ITS | Encounter Summary ---
Author Organization [facility] Address [address] [place] [address] Care Team Providers Care Plush Brusher Name Role Phone Royal Pierre MD Primary Care Provider [phone] Chel Montilla MD Unavailable Joseph Berg MD Unavailable [phone] Devika Bashir NP Unavailable Unavailable [facility], Pcp Primary Care Provider Unavailabl e Encounter Details Date Type Department Care Team Description 05/18/2023 Hospital Medical Records [address] [place] [address] [facility] Social History Tobacco Use Types Packs/Day [...] on filedocumented in this encounter Care Teams Plush Brusher Relationship Specialty Start Date End Date Royal Pierre MD [address] [place] [address] [phone] PCP - General Internal Medicine 07/21/20 12/27/23 [facility], Pcp [address] [place] [address] PCP - General Internal Medicine 12/28/23 Chel Montilla MD [address] [place] [address] Specialist Cardiology 02/25/21 Joseph Berg MD [address] [place] [address] Specialist Cardiology 01/24/23 Devika Bashir NP [address] [place] [address] Cardiology 01/29/23 documented as of this encounter
--- OUTSIDE RECORDS SUMMARY | 2024-09-25 17:44 | XMS_ITS | Encounter Summary ---
Author Organization [facility] Address [address] [place] [address] Care Team Providers Care Console Operator Name Role Phone Anthony Whittaker MD Primary Care Provider Royal Pierre MD Primary Care Provider [phone] Chel Montilla MD Unavailable Nubia Preston PA-C Unavailable Unavailab Joseph Thompson MD Unavailable [phone] Devika Bashir NP Unavailable Unavailable [facility], Pcp Primary Care Provider Unavailabl e Reason for Visit * Reason Onset Date Comments other 01/31/2018 Encounter Details Date Type Department Care Team Description 01/31/2018 Telephone Pulmonology - [address] [place] [address] Ken Allen MD other Social History Tobacco Use Types Packs/Day Years [...] encounter Miscellaneous Notes * Telephone Encounter - Yessi Glynn M.A. - 01/31/2018 8:57 AM EDT Patient is scheduled today with . * Telephone Encounter - Lynn Garner - 01/31/2018 8:56 AM EDT Scheduled with pts's spouse an appt for today 01/31 @ 3:[address] Allen. * Telephone Encounter - Corinne Rachelle - 01/31/2018 8:34 AM EDT Pt called back very rude she said her needs to Dr Allen today yelling it. I told her he has an apt for tomorrow with Dr Miller and there is nothing available she just kept saying he isto be seen today!! documented in this encounter Plan of Treatment Not on file documented as of this encounter Visit Diagnoses Not on filedocumented in this encounter Care Teams Console Operator Relationship Specialty Start Date End Date Anthony Whittaker MD [address] [place] [address] PCP - General 10/09/1995 07/20/20 Royal Pierre MD [address] [place] [address] PCP - General Internal Medicine 07/21/20 12/27/23 [facility], Pcp [address] [place] [address] PCP - General Internal Medicine 12/28/23 Chel Montilla MD [address] [place] [address] Specialist Cardiology 02/25/21 Nubia Prestno PA-C [address] [place] [address]91 Cardiology 05/24/21 01/28/23 Joseph Berg MD [address] [place] [address] Specialist Cardiology 01/24/23 Devika Bashir NP [address] [place] [address] Cardiology 01/29/23 documented as of this encounter
--- OUTSIDE RECORDS SUMMARY | 2024-09-25 17:44 | XMS_ITS | Encounter Summary ---
Author Organization [facility] Address [address] [place] [address] Care Team Providers Care Milk Tanker Driver Name Role Phone Royal Pierre MD Primary Care Provider [phone] Chel Montilla MD Unavailable Nubia Preston PA-C Unavailable Unavailab Joseph Thompson MD Unavailable [phone] Devika Bashir NP Unavailable Unavailable [facility], Pcp Primary Care Provider Unavailabl e Encounter Details Date Type Department Care Team Description 05/26/2021 Hose Suspender Cutter Report Medical Records [address] [place] [address] Ken Allen MD Social History Tobacco Use [...] on filedocumented in this encounter Care Teams Milk Tanker Driver Relationship Specialty Start Date End Date Royal Pierre MD [address] [place] [address] [phone] PCP - General Internal Medicine 07/21/20 12/27/23 [facility], Pcp [address] [place] [address] 19853 PCP - General Internal Medicine 12/28/23 Chel Montilla MD [address] [place] [address] [phone] Specialist Cardiology 02/25/21 Nubia Preston PA-C [address] [place] [address]645 Cardiology 05/24/21 01/28/23 Joseph Berg MD [address] [place], [place] [phone] Specialist Cardiology 01/24/23 Devika Bashir NP [address] [place] [address] Cardiology 01/29/23 documented as of this encounter
--- OUTSIDE RECORDS SUMMARY | 2024-09-25 17:44 | XMS_ITS | Encounter Summary ---
Author Organization [facility] Address [address] [place] [address] Care Team Providers Care Shactor Helper Name Role Phone Anthony Whittaker MD Primary Care Provider [phone] Royal Pierre MD Primary Care Provider [phone] Chel Montilla MD Unavailable Nubia Preston PA-C Unavailable Unavailab Joseph Thompson MD Unavailable [phone] Devika Bashir NP Unavailable Unavailable [facility], Pcp Primary Care Provider Unavailabl e Encounter Details Date Type Department Care Team Description 05/08/2018 Administrative Analyst Report Medical Records [address] [place] [address] Marian Otero Social History Tobacco Use Types [...] on filedocumented in this encounter Care Teams Shactor Helper Relationship Specialty Start Date End Date Anthony Whittaker MD [address] [place] [address] PCP - General 10/09/1995 07/20/20 Royal Pierre MD [address] [place] [address] PCP - General Internal Medicine 07/21/20 12/27/23 [facility], Pcp [address] [place] [address] PCP - General Internal Medicine 12/28/23 Chel Montilla MD [address] [place] [address] Specialist Cardiology 02/25/21 Nubia Preston PA-C [address] [place] [address] Cardiology 05/24/21 01/28/23 Joseph Berg MD [address] [place] [address] Specialist Cardiology 01/24/23 Devika Bashir NP [address] [place] [address] Cardiology 01/29/23 documented as of this encounter
--- OUTSIDE RECORDS SUMMARY | 2024-09-25 17:44 | XMS_ITS | Encounter Summary ---
Author Organization [facility] Address [address] [place] [address] Care Team Providers Care Almond Roaster Name Role Phone Royal Pierre MD Primary Care Provider [phone] Chel Montilla MD Unavailable Nubia Preston PA-C Unavailable Unavailab Joseph Thompson MD Unavailable [phone] Devika Bahsir NP Unavailable Unavailable [facility], Pcp Primary Care Provider Unavailabl e Encounter Details Date Type Department Care Team Description 09/15/2020 Inside Polisher Report Medical Records [address] [place] [address] Edward Garcia MD Social History Tobacco Use Types Packs/Day [...] on filedocumented in this encounter Care Teams Almond Roaster Relationship Specialty Start Date End Date Royal Pierre MD [address] [place] [address] [phone] PCP - General Internal Medicine 07/21/20 12/27/23 [facility], Pcp [address] [place] [address] PCP - General Internal Medicine 12/28/23 Chel Montilla MD [address] [place] [address] [phone] Specialist Cardiology 02/25/21 Nubia Preston PA-C [address] [place] [address] Cardiology 05/24/21 01/28/23 Joseph Berg MD [address] [place], [place] [phone] Specialist Cardiology 01/24/23 Devika Bashir NP [address] [place] [address] Cardiology 01/29/23 documented as of this encounter
--- OUTSIDE RECORDS SUMMARY | 2024-09-25 17:44 | XMS_ITS | Encounter Summary ---
Author Organization [facility] Address [address] [place] [address] Care Team Providers Care Flight Radio Officer Name Role Phone Anthony Whittaker MD Primary Care Provider [phone] Royal Pierre MD Primary Care Provider [phone] Chel Montilla MD Unavailable Nubia Preston PA-C Unavailable Unavailab Joseph Thompson MD Unavailable [phone] Devika Bashir NP Unavailable Unavailable [facility], Pcp Primary Care Provider Unavailabl e Encounter Details Date Type Department Care Team Description 01/24/2018 Slunk Skinner Report Medical Records [address] [place] [address] 270[address] Abstract, Provider Social History Tobacco Use Types [...] on filedocumented in this encounter Care Teams Flight Radio Officer Relationship Specialty Start Date End Date Anthony Whittaker MD [address] [place] [address]20 PCP - General 10/09/1995 07/20/20 Royal Pierre MD [address] [place] [address] [phone] PCP - General Internal Medicine 07/21/20 12/27/23 [facility], Pcp [address] [place] [address] 44214 PCP - General Internal Medicine 12/28/23 Chel Montilla MD [address] [place] [address] Specialist Cardiology 02/25/21 Nubia Preston PA-C [address] [place] [address]15 Cardiology 05/24/21 01/28/23 Joseph Berg MD [address] [place] [address] Specialist Cardiology 01/24/23 Devika Bashir NP [address] [place] [address] Cardiology 01/29/23 documented as of this encounter
--- OUTSIDE RECORDS SUMMARY | 2024-09-25 17:44 | XMS_ITS | Encounter Summary ---
Author Organization [facility] Address [address] [place] [address] Care Team Providers Care Terminal Manager Name Role Phone Royal Pierre MD Primary Care Provider [phone] Chel Montilla MD Unavailable Joseph Berg MD Unavailable [phone] Devika Bashir NP Unavailable Unavailable [facility], Pcp Primary Care Provider Unavailabl e Reason for Visit * Reason Onset Date Comments Hospital Procedure 04/09/2023 Upgrade to Du al ICD 11.3.23 Encounter Details Date Type Department Care Team Description 04/09/2023 Telephone Cardio PVC POC [phone] [facility] [address] [place], [place] [phone] Joseph Berg MD [address] [place] [address] [phone] Hospital Procedure (Upgrade to Dual ICD 11.3.23) [...] Scheduled on 05.18.[address] Berg at [facility] at 10am Mailing packet to patient today [...] the procedure Patient is to report to [facility] to the 3rd floor Patient agreed to all inst and date, time and location above via phone while booking procedure. Booking sheet and confirmation received. * Telephone Encounter - Heather Dong C.M.A. - 04/09/2023 1:52 PM EDT Left voicemail on patients phone number on file to call me back gave my direct number documented in this encounter Plan of Treatment Not on file documented as of this encounter Results * (ABNORMAL) CHG BLOOD COUNT COMPLETE AUTO&AUTO DIFRNTL WBC (05/04/2023 1:35 PM EDT) [facility] WHITE BLOOD COUNT 7.9 4.8 - 10.8 x10-3/uL 05/04/2023 4:29 PM EDT [facility] RED BLOOD COUNT 3.8(L) 4.5 - 5.5 x10-6/uL 05/04/2023 4:29 PM EDT [facility] Hemoglobin 12.7(L) 13.5 - 17.5 g/dL 05/04/2023 4:29 PM EDT [facility] Hematocrit 36.5(L) 42 - 54 % 05/04/2023 4:29 PM EDT [facility] MEAN CORPUSCULAR VOLUME 96.6 79 - 98 fL 05/04/2023 4:29 PM EDT [facility] CORPUSCULAR HEMOGLOBIN 33.6(H) 27 - 32 pg 05/04/2023 4:29 PM EDT [facility] MEAN CORPUSCULAR HGB CONC 34.8 32 - 37 g/dL 05/04/2023 4:29 PM EDT [facility] RED CELL DISTRIBUTION WIDTH 14.0 11 - 15 % 05/04/2023 4:29 PM EDT [facility] PLT COUNT 215 130 - 400 x10-3/uL 05/04/2023 4:29 PM EDT [facility] MEAN PLATELET VOLUME 8.9 7 - 11 fL 05/04/2023 4:29 PM EDT [facility] NRBC % AUTO 0.0 <1 % 05/04/2023 4:29 PM EDT [facility] NEUTROPHILS % 71.6 % 05/04/2023 4:29 PM EDT [facility] LYMPH % 12.3 % 05/04/2023 4:29 PM EDT [facility] MONO % 12.0 % 05/04/2023 4:29 PM EDT [facility] EOS % 3.1 % 05/04/2023 4:29 PM EDT [facility] BASO % 0.6 % 05/04/2023 4:29 PM EDT [facility] IMMATURE GRANULOCYTES % 0.4 % 05/04/2023 4:29 PM EDT [facility] NRBC # AUTO 0.00 <0.1 x10-3/uL 05/04/2023 4:29 PM EDT [facility] NEUT # 5.63 1.5 - 7.0 x10-3/uL 05/04/2023 4:29 PM EDT [facility] LYMPH # 0.97(L) 1 - 5.0 x10-3/uL 05/04/2023 4:29 PM EDT [facility] MONO # 0.94 0.2 - 1.0 x10-3/uL 05/04/2023 4:29 PM EDT [facility] EOS # 0.24 0 - 0.5 x10-3/uL [...] to patient->Immediate Joseph Berg MD LAB [facility] * (ABNORMAL) CHG BASIC METABOLIC PANEL CALCIUM TOTAL (05/04/2023 1:35 PM EDT) GLUCOSE 95 70 - 100 mg/dL 05/04/2023 4:42 PM EDT [facility] Comment:Reference range appl icable to fasting specimens only Blood Urea Nitrogen 11 5 - 25 mg/dL 05/04/2023 4:42 PM EDT [facility] CREAT 0.89 0.7 - 1.3 mg/dL 05/04/2023 4:42 PM EDT [facility] GLOMERULAR FILTRATION RATE 86 >60 05/04/2023 4:42 PM EDT [facility] Comment: This eGFR result was calculated using the CKD-EPI 2020 Creatinine Equation NA 131(L) 135 - 145 mEq/L 05/04/2023 4:42 PM EDT [facility] K 4.2 3.5 - 5.5 mmol/L 05/04/2023 4:42 PM EDT [facility] CL 95(L) 96 - 110 mmol/L 05/04/2023 4:42 PM EDT [facility] CARBON DIOXIDE (CO2) 29 21 - 32 [...] Joseph Berg MD LAB Performing Organization Address [facility] de Phone Number [facility] documented in this encounter Visit Diagnoses Diagnosis VT (ventricular tachycardia) (HCC)- Primary Paroxysmal ventricular tachycardia VT (ventricular tachycardia) (HCC) Paroxysmal ventricular tachycardia documented in this encounter Care Teams Terminal Manager Relationship Specialty Start Date End Date Royal Pierre MD [address] [place] [address] PCP - General Internal Medicine 07/21/20 12/27/23 [facility], Pcp [address] [place], [place] [phone] PCP - General Internal Medicine 12/28/23 Chel Montilla MD [address] [place] [address] Specialist Cardiology 02/25/21 Joseph Berg MD [address] [place] [address] Specialist Cardiology 01/24/23 Devika Bashir NP [address] [place], [place] [phone] Cardiology 01/29/23 documented as of this encounter
--- OUTSIDE RECORDS SUMMARY | 2024-09-25 17:44 | XMS_ITS | Encounter Summary ---
Author Organization [facility] Address [address] [place] [address] Care Team Providers Care Mincing Machine Operator Name Role Phone Royal Pierre MD Primary Care Provider [phone] Chel Montilla MD Unavailable Nubia Preston PA-C Unavailable Unavailab Joseph Thompson MD Unavailable [phone] Devika Bashir NP Unavailable Unavailable [facility], Pcp Primary Care Provider Unavailabl e Encounter Details Date Type Department Care Team Description 05/14/2021 Hospital Medical Records [address] [place] [address] [phone] Social History Tobacco Use Types Packs/Day Years [...] on filedocumented in this encounter Care Teams Mincing Machine Operator Relationship Specialty Start Date End Date Royal Pierre MD [address] [place] [address] PCP - General Internal Medicine 07/21/20 12/27/23 [facility], Pcp [address] [place] [address] PCP - General Internal Medicine 12/28/23 Chel Montilla MD [address] [place] [address] Specialist Cardiology 02/25/21 Nubia Preston PA-C [address] [place] [address] Cardiology 05/24/21 01/28/23 Joseph Berg MD [address] [place] [address] Specialist Cardiology 01/24/23 Devika Bashir NP [address] [place] [address] Cardiology 01/29/23 documented as of this encounter
--- OUTSIDE RECORDS SUMMARY | 2024-09-25 17:44 | XMS_ITS | Encounter Summary ---
Author Organization [facility] Address [address] [place] [address] Care Team Providers Care Kiln Pusher Name Role Phone Anthony Whittaker MD Primary Care Provider [phone] Royal Pierre MD Primary Care Provider [phone] Chel Montilla MD Unavailable Nubia Preston PA-C Unavailable Unavailab Joseph Thompson MD Unavailable [phone] Devika Bashir NP Unavailable Unavailable [facility], Pcp Primary Care Provider Unavailabl e Encounter Details Date Type Department Care Team Description 11/22/2015 Winding Department Supervisor Report Medical Records [address] [place] [address] Ken Allen MD Social History Tobacco Use [...] on filedocumented in this encounter Care Teams Kiln Pusher Relationship Specialty Start Date End Date Anthony Whittaker MD [address] [place] [address] [phone] PCP - General 10/09/1995 07/20/20 Royal Pierre MD [address] [place] [address]116 PCP - General Internal Medicine 1/6/21 6/13/24 [facility], Pcp [address] [phone] PCP - General Internal Medicine 12/28/23 Chel Montilla MD [address] [place] [address] Specialist Cardiology 02/25/21 Nubia Preston PA-C [address] [place] [address] 25406 Cardiology 05/24/21 01/28/23 Joseph Berg MD [address] [place] [address] Specialist Cardiology 01/24/23 Devika Bashir NP [address] [place] [address] Cardiology 01/29/23 documented as of this encounter
--- OUTSIDE RECORDS SUMMARY | 2024-09-25 17:44 | XMS_ITS | Encounter Summary ---
Author Organization [facility] Address [address] [place] [address] Care Team Providers Care Account Coordinator Name Role Phone Anthony Whittaker MD Primary Care Provider [phone] Royal Pierre MD Primary Care Provider [phone] Chel Montilla MD Unavailable Nubia Preston PA-C Unavailable Unavailab Joseph Thompson MD Unavailable [phone] Devika Bashir NP Unavailable [facility], Pcp Primary Care Provider Unavailabl e Encounter Details Date Type Department Care Team Description 07/26/2018 Orders Only Medical Records [address] [place] [address] Abstract, Provider Social History Tobacco Use Types [...] on filedocumented in this encounter Care Teams Account Coordinator Relationship Specialty Start Date End Date Anthony Whittaker MD [address] [place], [place] [phone] PCP - General 10/09/1995 1/5/21 Royal Pierre MD [address] [place] [address] 77[address] PCP - General Internal Medicine 07/21/20 12/27/23 [facility] Pcp [address] [place], [place] [phone] PCP - General Internal Medicine 12/28/23 Chel Montilla MD [address] [place] [address] Specialist Cardiology 02/25/21 Nubia Preston PA-C [address] [place] [address] 91230 Cardiology 05/24/21 01/28/23 Joseph Berg MD [address] [place] [address] 478[address] Specialist Cardiology 01/24/23 Devika Bashir NP [address] [place] [address] 87825 Cardiology 01/29/23 documented as of this encounter
--- OUTSIDE RECORDS SUMMARY | 2024-09-25 17:44 | XMS_ITS | Encounter Summary ---
Author Organization [facility] Address [address] [place] [address] Care Team Providers Care Appliance Service Supervisor Name Role Phone Royal Pierre MD Primary Care Provider [phone] Chel Montilla MD Unavailable Nubia Preston PA-C Unavailable Unavailab Joseph Thompson MD Unavailable [phone] Devika Bashir NP Unavailable Unavailable [facility], Pcp Primary Care Provider Unavailabl e Encounter Details Date Type Department Care Team Description 02/16/2021 Supervisor Scouring Pads Report Medical Records [address] [place] [address] Husam Guerra MD Social History Tobacco Use [...] have Coronavirus / COVID-19? No / Unsure 02/01/2021 8:59 AM EDT documented as of this encounter Plan of Treatment Not on file documented as of this encounter Visit Diagnoses Not on filedocumented in this encounter Care Teams Appliance Service Supervisor Relationship Specialty Start Date End Date Royal Pierre MD [address] [place] [address]20 PCP - General Internal Medicine 07/21/20 12/27/23 [facility], Pcp [address] [place] [address] 38522 PCP - General Internal Medicine 12/28/23 Chel Montilla MD [address] [place] [address] 43312 Specialist Cardiology 02/25/21 Nubia Preston PA-C [address] [place] [address] 20917 Cardiology 05/24/21 01/28/23 Joseph Berg MD [address] [place] [address] 07[address] Specialist Cardiology 01/24/23 Devika Bashir NP [address] [place] [address] 19824 Cardiology 01/29/23 documented as of this encounter
--- OUTSIDE RECORDS SUMMARY | 2024-09-25 17:44 | XMS_ITS | Encounter Summary ---
Author Organization [facility] Address [address] [place] [address] Care Team Providers Care Yarn Examiner Skeins Name Role Phone Royal Pierre MD Primary Care Provider Chel Montilla MD Unavailable Nubia Preston PA-C Unavailable Unavailab Joseph Thompson MD Unavailable [phone] Devika Bashir NP Unavailable Unavailable [facility], Pcp Primary Care Provider Unavailabl e Reason for Visit * Reason Comments E-prescribe Rx Request Encounter Details Date Type Department Care Team Description 01/25/2021 Refill Adult Medicine [address] [phone] Anthony Whittaker MD [address] [place] [address] [phone] E-prescribe Rx Request Social History Tobacco Use [...] / Plan: [place] / Product Type: MEDICARE [id number] documented in this encounter Plan of Treatment Not on file documented as of this encounter Visit Diagnoses Not on filedocumented in this encounter Care Teams Yarn Examiner Skeins Relationship Specialty Start Date End Date Royal Pierre MD [address] [place] [address] 34844 PCP - General Internal Medicine 07/21/20 12/27/[address] [address] PCP - General Internal Medicine 12/28/23 Chel Montilla MD [address] [place] [address] Specialist Cardiology 02/25/21 Nubia Preston PA-C [address] [place] [address] Cardiology 05/24/21 01/28/23 Joseph Berg MD [address] [place] [address] Specialist Cardiology 01/24/23 Devika Bashir NP [address] [place] [address] Cardiology 01/29/23 documented as of this encounter
--- OUTSIDE RECORDS SUMMARY | 2024-09-25 17:44 | XMS_ITS | Encounter Summary ---
Author Organization [facility] Address [address] [place] [address] Care Team Providers Care Director Orange Name Role Phone Anthony Whittaker MD Primary Care Provider [phone] Royal Pierre MD Primary Care Provider [phone] Chel Montilla MD Unavailable Nubia Preston PA-C Unavailable Unavailab Joseph Thompson MD Unavailable [phone] Devika Bashir NP Unavailable Unavailable [facility], Pcp Primary Care Provider Unavailabl e Encounter Details Date Type Department Care Team Description 12/06/2011 Canvas Goods Maker Report Medical Records [address] [place] [address] 16307 Lee Gil MD Social History Tobacco Use [...] filedocumented in this encounter Care Teams Director Orange Relationship Specialty Start Date End Date Anthony Whittaker MD [address] [place] [address] [phone] PCP - General 10/09/1995 07/20/20 Royal Pierre MD [address] [place] [address] [phone] PCP - General Internal Medicine 07/21/20 12/27/23 [facility], Pcp [address] [place] [address] PCP - General Internal Medicine 12/28/23 Chel Montilla MD [address] [place] [address] Specialist Cardiology 02/25/21 Nubia Preston PA-C [address] [place] [address] 26670 Cardiology 05/24/21 01/28/23 Joseph Berg MD [address] [place] [address] Specialist Cardiology 01/24/23 Devika Bashir NP [address] [place] [address] Cardiology 01/29/23 documented as of this encounter
--- OUTSIDE RECORDS SUMMARY | 2024-09-25 17:44 | XMS_ITS | Encounter Summary ---
Author Organization [facility] Address [address] [place] [address] Care Team Providers Care Fleet Assistant Name Role Phone Anthony Whittaker MD Primary Care Provider Royal Pierre MD Primary Care Provider [phone] Chel Montilla MD Unavailable Nubia Preston PA-C Unavailable Unavailab Joseph Thompson MD Unavailable [phone] Devika Bashir NP Unavailable Unavailable [facility], Pcp Primary Care Provider Unavailabl e Encounter Details Date Type Department Care Team Description 09/26/2018 Fine Craft Artist Report Medical Records [address] [place] [address] Go Ramos MD Social History Tobacco Use [...] on filedocumented in this encounter Care Teams Fleet Assistant Relationship Specialty Start Date End Date Anthony Whittaker MD [address] [place] [address] PCP - General 10/09/1995 07/20/20 Royal Pierre MD [address] [place] [address] [phone] PCP - General Internal Medicine 07/21/20 12/27/23 [facility], Pcp [address] [place] [address] PCP - General Internal Medicine 12/28/23 Chel Montilla MD [address] [place] [address] Specialist Cardiology 02/25/21 Nubia Preston PA-C [address] [place] [address] Cardiology 05/24/21 01/28/23 Joseph Berg MD [address] [place] [address] Specialist Cardiology 01/24/23 Devika Bashir NP [address] [place] [address] Cardiology 01/29/23 documented as of this encounter
--- OUTSIDE RECORDS SUMMARY | 2024-09-25 17:44 | XMS_ITS | Encounter Summary ---
Author Organization [facility] Address [address] [place] [address] Care Team Providers Care Buildings And Grounds Supervisor Name Role Phone Royal Pierre MD Primary Care Provider [phone] Chel Montilla MD Unavailable Nubia Preston PA-C Unavailable Unavailab Joseph Thompson MD Unavailable [phone] Devika Bashir NP Unavailable Unavailable [facility], Pcp Primary Care Provider Unavailabl e Encounter Details Date Type Department Care Team Description 05/14/2021 Hospital Medical Records [address] [place] [address] Social History Tobacco Use Types Packs/Day Years [...] on filedocumented in this encounter Care Teams Buildings And Grounds Supervisor Relationship Specialty Start Date End Date Royal Pierre MD [address] [place] [address] PCP - General Internal Medicine 07/21/20 12/27/23 [facility], Pcp [address] [place] [address] PCP - General Internal Medicine 12/28/23 Chel Montilla MD [address] [place] [address] Specialist Cardiology 02/25/21 Nubia Preston PA-C [address] [place] [address] Cardiology 05/24/21 01/28/23 Joseph Berg MD [address] [place] [address] Specialist Cardiology 01/24/23 Devika Bashir NP [address] [place] [address] Cardiology 01/29/23 documented as of this encounter
--- OUTSIDE RECORDS SUMMARY | 2024-09-25 17:44 | XMS_ITS | Encounter Summary ---
Author Organization [facility] Address [address] [place] [address] Care Team Providers Care Lofter Name Role Phone Anthony Whittaker MD Primary Care Provider [phone] Royal Pierre MD Primary Care Provider [phone] Chel Montilla MD Unavailable Nubia Preston PA-C Unavailable Unavailab Joseph Thompson MD Unavailable [phone] Devika Bashir NP Unavailable Unavailable [facility], Pcp Primary Care Provider Unavailabl e Encounter Details Date Type Department Care Team Description 04/29/2018 Supervisor Grounds Report Medical Records [address] [place] [address] Chel Montilla MD [address] [place] [address] [phone] Social History Tobacco Use Types Packs/Day Years [...] on filedocumented in this encounter Care Teams Lofter Relationship Specialty Start Date End Date Anthony Whittaker MD [address] [place] [address] [phone] PCP - General 10/09/1995 07/20/20 Royal Pierre MD [address] [place] [address]125 PCP - General Internal Medicine 07/21/20 12/27/23 [facility], Pcp [address] [place] [address] PCP - General Internal Medicine 12/28/23 Chel Montilla MD [address] [place] [address] Specialist Cardiology 02/25/21 Nubia Preston PA-C [address] [place] [address] Cardiology 05/24/21 01/28/23 Joseph Berg MD [address] [place] [address] Specialist Cardiology 01/24/23 Devika Bashir NP [address] [place], [place] [phone] Cardiology 01/29/23 documented as of this encounter
--- OUTSIDE RECORDS SUMMARY | 2024-09-25 17:44 | XMS_ITS | Encounter Summary ---
Author Organization [facility] Address [address] [place] [address] Care Team Providers Care Dental Appliance Mechanic Name Role Phone Anthony Whittaker MD Primary Care Provider Royal Pierre MD Primary Care Provider [phone] Chel Montilla MD Unavailable Nubia Preston PA-C Unavailable Unavailab Joseph Thompson MD Unavailable [phone] Devika Bashir NP Unavailable Unavailable [facility], Pcp Primary Care Provider Unavailabl e Encounter Details Date Type Department Care Team Description 04/13/1999 [facility] - [address] [address] Lee Gil MD UNSPECIFIED CHEST PAIN Social History Tobacco Use Types Packs/Day Years Used Date Smoking Tobacco: Never Assessed Sex Assigned at Date Recorded Not on file Job Start Date Occupation Industry Not on file Not on file Not on file documented as of this encounter Plan of Treatment Not on file documented as of this encounter Visit Diagnoses Diagnosis Chest pain, unspecified documented in this encounter Care Teams Dental Appliance Mechanic Relationship Specialty Start Date End Date Anthony Whittaker MD [address] [place] [address]88 PCP - General 10/09/1995 07/20/20 Royal Pierre MD [address] [place] [address] 55[address] PCP - General Internal Medicine 07/21/20 12/27/23 [facility], [address] [address] PCP - General Internal Medicine 12/28/23 Chel Montilla MD [address] [place] [address] Specialist Cardiology 02/25/21 Nubia Preston PA-C [address] [place] [address]68 Cardiology 05/24/21 01/28/23 Joseph Berg MD [address] [place] [address] Specialist Cardiology 01/24/23 Devika Bashir NP [address] [place] [address] Cardiology 01/29/23 documented as of this encounter
--- OUTSIDE RECORDS SUMMARY | 2024-09-25 17:44 | XMS_ITS | Encounter Summary ---
Author Organization [facility] Address [address] [place] [address] Care Team Providers Care Admissions Director Name Role Phone Anthony Whittaker MD Primary Care Provider [phone] Royal Pierre MD Primary Care Provider [phone] Chel Montilla MD Unavailable Nubia Preston PA-C Unavailable Unavailab Joseph Thompson MD Unavailable [phone] Devika Bashir NP Unavailable Unavailable [facility], Pcp Primary Care Provider Unavailabl e Encounter Details Date Type Department Care Team Description 10/02/2014 Advice Clerk Report Medical Records [address] [place] [address] Shaunna Fry MD Social History Tobacco Use [...] on filedocumented in this encounter Care Teams Admissions Director Relationship Specialty Start Date End Date Anthony Whittaker MD [address] [place] [address] PCP - General 10/09/1995 07/20/20 Royal Pierre MD [address] [place] [address] [phone] PCP - General Internal Medicine 07/21/20 12/27/23 [facility], Pcp [address] [place] [address] PCP - General Internal Medicine 12/28/23 Chel Montilla MD [address] [place] [address] Specialist Cardiology 02/25/21 Nubia Preston PA-C [address] [place] [address] Cardiology 05/24/21 01/28/23 Joseph Berg MD [address] [place] [address] Specialist Cardiology 01/24/23 Devika Bashir NP [address] [place] [address] Cardiology 01/29/23 documented as of this encounter
--- OUTSIDE RECORDS SUMMARY | 2024-09-25 17:44 | XMS_ITS | Encounter Summary ---
Author Organization [facility] Address [address] [place] [address] Care Team Providers Care Giant Tire Repairer Name Role Phone Anthony Whittaker MD Primary Care Provider Royal Pierre MD Primary Care Provider [phone] Chel Montilla MD Unavailable Nubia Preston PA-C Unavailable Unavailab Joseph Thompson MD Unavailable [phone] Devika Bashir NP Unavailable Unavailable [facility], Pcp Primary Care Provider Unavailabl e Encounter Details Date Type Department Care Team Description 07/17/2018 Natural History Collections Curator Report Medical Records [address] [place] [address] [facility] Social History Tobacco Use Types [...] on filedocumented in this encounter Care Teams Giant Tire Repairer Relationship Specialty Start Date End Date Anthony Whittaker MD [address] [place] [address] PCP - General 10/09/1995 07/20/20 Royal Pierre MD [address] [place] [address] PCP - General Internal Medicine 07/21/20 12/27/23 [facility], Pcp [address] [place] [address] PCP - General Internal Medicine 12/28/23 Chel Montilla MD [address] [place] [address] Specialist Cardiology 02/25/21 Nubia Preston PA-C [address] [place] [address] Cardiology 05/24/21 01/28/23 Joseph Berg MD [address] [place] [address] Specialist Cardiology 01/24/23 Devika Basihr NP [address] [place] [address] Cardiology 01/29/23 documented as of this encounter
--- OUTSIDE RECORDS SUMMARY | 2024-09-25 17:45 | XMS_ITS | Encounter Summary ---
Author Organization [facility] Address [address] [place] [address] Care Team Providers Care Candy Maker Name Role Phone Anthony Whittaker MD Primary Care Provider [phone] Royal Pierre MD Primary Care Provider Chel Montilla MD Unavailable Nubia Preston PA-C Unavailable Unavailab Joseph Thompson MD Unavailable [phone] Devika Bashir NP Unavailable Unavailable [facility], Pcp Primary Care Provider Unavailabl e Reason for Visit * Reason Onset Date Comments TEST RESULTS 04/21/2020 Encounter Details Date Type Department Care Team Description 04/21/2020 Telephone Adult Medicine [address] [address] Reno Marie PA-C [address] [place] [address] TEST RESULTS Social History Tobacco Use Types [...] front office no reports Request sent to [facility] [place] [facility] [place], will fax to [facility] srinivas fax * Telephone Encounter - Emma Wick - 04/21/2020 10:45 AM EDT Inform patient: ANY URGENT OR ABNORMAL RESULTS WIILL RESULT IN A CALL BACK TO THE PATIENT TINO. Patient walked in. States that she has a copy of her husbands test results and is worried about cysts he has. States that she read the results . States [facility] gave her results so we should have received a copy Type of test: : Ultrasound of right knee Date test was performed: not sure of day Where was the test performed: [facility] Who ordered this test?: Reno Cynthia Is [...] on filedocumented in this encounter Care Teams Candy Maker Relationship Specialty Start Date End Date Anthony Whittaker MD [address] [place] [address] PCP - General 10/09/1995 07/20/20 Royal Pierre MD [address] [place] [address] PCP - General Internal Medicine 07/21/20 12/27/23 [facility], [place] [address] [place] [address] PCP - General Internal Medicine 12/28/23 Chel Montilla MD [address] [place] [address] Specialist Cardiology 02/25/21 Nubia Preston PA-C [address] [place] [address] Cardiology 05/24/21 01/28/23 Joseph Berg MD [address] [place] [address] Specialist Cardiology 01/24/23 Devika Bashir NP [address] [place] [address] Cardiology 01/29/23 documented as of this encounter
--- OUTSIDE RECORDS SUMMARY | 2024-09-25 17:45 | XMS_ITS | Encounter Summary ---
Author Organization [facility] Address [address] [place] [address] Care Team Providers Care Information Security Name Role Phone Anthony Whittaker MD Primary Care Provider Royal Pierre MD Primary Care Provider [phone] Chel Montilla MD Unavailable Nubia Preston PA-C Unavailable Unavailab Joseph Thompson MD Unavailable [phone] Devika Bashir NP Unavailable Unavailable [facility], Pcp Primary Care Provider Unavailabl e Reason for Visit * Reason Onset Date Comments Call From Office 10/07/2019 Encounter Details Date Type Department Care Team Description 10/07/2019 Telephone Adult [address] [phone] Anthony Whittaker MD [address] [place] [address] [phone] Call From Md Office Social History Tobacco [...] on filedocumented in this encounter Care Teams Information Security Relationship Specialty Start Date End Date Anthony Whittaker MD [address] [place] [address] PCP - General 10/09/1995 07/20/20 Royal Pierre MD [address] [place] [address] PCP - General Internal Medicine 07/21/20 12/27/23 [facility], Pcp [address] [place] [address] PCP - General Internal Medicine 12/28/23 Chel Montilla MD [address] [place] [address] Specialist Cardiology 02/25/21 Nubia Preston PA-C [address] [place] [address] Cardiology 05/24/21 01/28/23 Joseph Berg MD [address] [place] [address] Specialist Cardiology 01/24/23 Devika Bashir NP [address] [place] [address] Cardiology 01/29/23 documented as of this encounter
--- OUTSIDE RECORDS SUMMARY | 2024-09-25 17:45 | XMS_ITS | Encounter Summary ---
Author Organization [facility] Address [address] [place] [address] Care Team Providers Care Electrophysiology Scientist Name Role Phone Anthony Whittaker MD Primary Care Provider [phone] Royal Pierre MD Primary Care Provider [phone] Chel Montilla MD Unavailable Nubia Preston PA-C Unavailable Unavailab Joseph Thompson MD Unavailable [phone] Devika Bashir NP Unavailable Unavailable [facility], Pcp Primary Care Provider Unavailabl e Encounter Details Date Type Department Care Team Description 12/20/2017 Straddle Buggy Operator Report Medical Records [address] [place] [address] Go Ramos MD Social History Tobacco Use [...] on filedocumented in this encounter Care Teams Electrophysiology Scientist Relationship Specialty Start Date End Date Anthony Whittaker MD [address] [place] [address] [phone] PCP - General 10/09/1995 07/20/20 Royal Pierre MD [address] [place] [address] [phone] PCP - General Internal Medicine 07/21/20 12/27/23 [facility], Pcp [address] [place] [address] PCP - General Internal Medicine 12/28/23 Chel Montilla MD [address] [place] [address] Specialist Cardiology 02/25/21 Nubia Preston PA-C [address] [place] [address] Cardiology 05/24/21 01/28/23 Joseph Berg MD [address] [place] [address] Specialist Cardiology 01/24/23 Devika Bashir NP [address] [place] [address] Cardiology 01/29/23 documented as of this encounter
--- OUTSIDE RECORDS SUMMARY | 2024-09-25 17:45 | XMS_ITS | Encounter Summary ---
Author Organization [facility] Address [address] [place] [address] Care Team Providers Care Business Continuity Manager Name Role Phone Royal Pierre MD Primary Care Provider [phone] Chel Montilla MD Unavailable Joseph Berg MD Unavailable [phone] Devika Bashir NP Unavailable Unavailable [facility], Pcp Primary Care Provider Unavailabl e Reason for Visit * Reason Onset Date Comments Medical Records 06/28/2023 Encounter Details Date Type Department Care Team Description 06/28/2023 Telephone Cardio PVC POC [address] [facility] [address] [place] [address] Chel Montilla MD [address] [place] [address] [phone] Medical Records Social History Tobacco Use Types [...] Medical Records Request Deacon was discharged from [facility] on 06/25/23. Can you please get records prior to his 2023 hospital follow up appointment? Thanks. documented in this encounter Plan of Treatment Not on file documented as of this encounter Visit Diagnoses Not on filedocumented in this encounter Care Teams Business Continuity Manager Relationship Specialty Start Date End Date Royal Pierre MD [address] [place] [address] PCP - General Internal Medicine 07/21/20 12/27/23 [facility], Pcp [address] [place], [place] [phone] PCP - General Internal Medicine 12/28/23 Chel Montilla MD [address] [place] [address] Specialist Cardiology 02/25/21 Joseph Berg MD [address] [place] [address] Specialist Cardiology 01/24/23 Devika Bashir NP [address] [place], [place] [phone] Cardiology 01/29/23 documented as of this encounter
--- OUTSIDE RECORDS SUMMARY | 2024-09-25 17:45 | XMS_ITS | Encounter Summary ---
Author Organization [facility] Address [address] [place] [address] Care Team Providers Care Line Producer Name Role Phone Royal Pierre MD Primary Care Provider [phone] Chel Montilla MD Unavailable Nubia Preston PA-C Unavailable Unavailab Joseph Thompson MD Unavailable [phone] Devika Bashir NP Unavailable Unavailable [facility], Pcp Primary Care Provider Unavailabl e Encounter Details Date Type Department Care Team Description 01/03/2022 Learning And Development Analyst Report Medical Records [address] [place] [address] [phone] Social History Tobacco Use Types Packs/Day Years [...] In the last 10 days, have sheila u been in contact with someone who was confirmed or suspected to have Coronavirus/COVID-19? No / Unsure 12/22/2021 12:52 PM EDT documented as of this encounter Plan of Treatment Not on file documented as of this encounter Visit Diagnoses Not on filedocumented in this encounter Care Teams Line Producer Relationship Specialty Start Date End Date Royal Pierre MD [address] [place], [place] [phone] PCP - General Internal Medicine 07/21/20 12/27/23 [facility], Pcp [address] [place] [address] PCP - General Internal Medicine 12/28/23 Chel Montilla MD [address] [place] [address] Specialist Cardiology 02/25/21 Nubia Preston PA-C [address] [place] [address] Cardiology 05/24/21 01/28/23 Joseph Berg MD [address] [place] [address] Specialist Cardiology 01/24/23 Devika Bashir NP [address] [place] [address] Cardiology 01/29/23 documented as of this encounter
--- OUTSIDE RECORDS SUMMARY | 2024-09-25 17:45 | XMS_ITS | Encounter Summary ---
Author Organization [facility] Address [address] [place] [address] Care Team Providers Care Autocad Draftsman Name Role Phone Anthony Whittaker MD Primary Care Provider [phone] Royal Pierre MD Primary Care Provider [phone] Chel Montilla MD Unavailable Nubia Preston PA-C Unavailable Unavailab Joseph Thompson MD Unavailable [phone] Devika Bashir NP Unavailable Unavailable [facility], Pcp Primary Care Provider Unavailabl e Encounter Details Date Type Department Care Team Description 07/14/2006 Hospital Medical Records [address] [place] [address] Susy Contreras MD Social History Tobacco Use [...] filedocumented in this encounter Care Teams Autocad Draftsman Relationship Specialty Start Date End Date Anthony Whittaker MD [address] [place] [address] PCP - General 10/09/1995 07/20/20 Royal Pierre MD [address] [place] [address] PCP - General Internal Medicine 07/21/20 12/27/23 [facility], Pcp [address] [place] [address] PCP - General Internal Medicine 12/28/23 Chel Montilla MD [address] [place] [address] Specialist Cardiology 02/25/21 Nubia Preston PA-C [address] [place] [address] Cardiology 05/24/21 01/28/23 Joseph Berg MD [address] [place] [address] Specialist Cardiology 01/24/23 Devika Bashir NP [address] [place] [address] Cardiology 01/29/23 documented as of this encounter
--- OUTSIDE RECORDS SUMMARY | 2024-09-25 17:45 | XMS_ITS | Encounter Summary ---
Author Organization [facility] Address [address] [place] [address] Care Team Providers Care Spray Gun Sizer Name Role Phone Anthony Whittaker MD Primary Care Provider [phone] Royal Pierre MD Primary Care Provider [phone] Chel Montilla MD Unavailable Nubia Preston PA-C Unavailable Unavailab Joseph Thompson MD Unavailable [phone] Devika Bashir NP Unavailable Unavailable [facility], Pcp Primary Care Provider Unavailabl e Encounter Details Date Type Department Care Team Description 07/24/2013 Reliability Manager Report Medical Records [address] [place] [address] Lee Gil MD Social History Tobacco Use [...] on filedocumented in this encounter Care Teams Spray Gun Sizer Relationship Specialty Start Date End Date Anthony Whittaker MD [address] [place] [address] [phone] PCP - General 10/09/1995 07/20/20 Royal Pierre MD [address] [place] [address] [phone] PCP - General Internal Medicine 07/21/20 12/27/23 [facility], Pcp [address] [place] [address] PCP - General Internal Medicine 12/28/23 Chel Montilla MD [address] [place] [address] Specialist Cardiology 02/25/21 Nubia Preston PA-C [address] [place] [address] Cardiology 05/24/21 01/28/23 Joseph Berg MD [address] [place] [address] Specialist Cardiology 01/24/23 Devika Bashir NP [address] [place] [address] Cardiology 01/29/23 documented as of this encounter
--- OUTSIDE RECORDS SUMMARY | 2024-09-25 17:45 | XMS_ITS | Encounter Summary ---
Author Organization [facility] Address [address] [place] [address] Care Team Providers Care Agency Trainer Name Role Phone Anthony Whittaker MD Primary Care Provider Royal Pierre MD Primary Care Provider [phone] Chel Montilla MD Unavailable Nubia Preston PA-C Unavailable Unavailab Joseph Thompson MD Unavailable [phone] Devika Bashir NP Unavailable [facility], Pcp Primary Care Provider Unavailabl e Encounter Details Date Type Department Care Team Description 05/16/2019 Anti Tank Missileman Report Medical Records [address] [place] [id number] [facility] Social History Tobacco Use Types Packs/Day [...] on filedocumented in this encounter Care Teams Agency Trainer Relationship Specialty Start Date End Date Anthony Whittaker MD [address] [place] [address] PCP - General 10/09/1995 07/20/20 Royal Pierre MD [address] [place] [address] PCP - General Internal Medicine 07/21/20 12/27/23 [facility], Pcp [address] [place] [address] PCP - General Internal Medicine 12/28/23 Chel Montilla MD [address] [place] [address] Specialist Cardiology 02/25/21 Nubia Preston PA-C [address] [place] [address] Cardiology 05/24/21 01/28/23 Joseph Berg MD [address] [place] [address] Specialist Cardiology 01/24/23 Devika Bashir NP [address] [place] [address] Cardiology 01/29/23 documented as of this encounter
--- OUTSIDE RECORDS SUMMARY | 2024-09-25 17:45 | XMS_ITS | Encounter Summary ---
Author Organization [facility] Address [address] [place] [address] Care Team Providers Care Plant Technical Specialist Name Role Phone Royal Pierre MD Primary Care Provider [phone] Chel Montilla MD Unavailable Nubia Preston PA-C Unavailable Unavailab Joseph Thompson MD Unavailable [phone] Devika Bashir NP Unavailable Unavailable [facility], Pcp Primary Care Provider Unavailabl e Encounter Details Date Type Department Care Team Description 01/20/2022 Hospital Medical Records [address] [place] [address] [facility] Social History Tobacco Use Types [...] on filedocumented in this encounter Care Teams Plant Technical Specialist Relationship Specialty Start Date End Date Royal Pierre MD [address] [place] [address] [phone] PCP - General Internal Medicine 07/21/20 12/27/23 [facility], Pcp [address] [place] [address] PCP - General Internal Medicine 12/28/23 Chel Montilla MD [address] [place] [address] Specialist Cardiology 02/25/21 Nubia Preston PA-C [address] [place] [address] Cardiology 05/24/21 01/28/23 Joseph Berg MD [address] [place] [address] Specialist Cardiology 01/24/23 Devika Bashir NP [address] [place] [address] Cardiology 01/29/23 documented as of this encounter
--- OUTSIDE RECORDS SUMMARY | 2024-09-25 17:45 | XMS_ITS | Encounter Summary ---
Author Organization [facility] Address [address] [place] [address] Care Team Providers Care Barn Worker Name Role Phone Anthony Whittaker MD Primary Care Provider [phone] Royal Pierre MD Primary Care Provider [phone] Chel Montilla MD Unavailable Nubia Preston PA-C Unavailable Unavailab Joseph Thompson MD Unavailable [phone] Devika Bashir NP Unavailable Unavailable [facility], Pcp Primary Care Provider Unavailabl e Encounter Details Date Type Department Care Team Description 01/24/2016 Corporate Auditor Report Medical Records [address] [place] [address] Chel Montilla MD [address] [place] [address] [phone] Social History Tobacco Use Types Packs/Day Years [...] on filedocumented in this encounter Care Teams Barn Worker Relationship Specialty Start Date End Date Anthony Whittaker MD [address] [place] [address] [phone] PCP - General 10/09/1995 07/20/20 Royal Pierre MD [address] [place] [address] [phone] PCP - General Internal Medicine 07/21/20 12/27/23 [facility], Pcp [address] [place] [address] PCP - General Internal Medicine 12/28/23 Chel Montilla MD [address] [place] [address] Specialist Cardiology 02/25/21 Nubia Preston PA-C [address] [place] [address] Cardiology 05/24/21 01/28/23 Joseph Berg MD [address] [place] [address] Specialist Cardiology 01/24/23 Devika Bashir NP [address] [place] [address] Cardiology 01/29/23 documented as of this encounter
--- OUTSIDE RECORDS SUMMARY | 2024-09-25 17:45 | XMS_ITS | Encounter Summary ---
Author Organization [facility] Address [address] [place] [address] Care Team Providers Care Wire Splicer Name Role Phone Anthony Whittaker MD Primary Care Provider [phone] Royal Pierre MD Primary Care Provider [phone] Chel Montilla MD Unavailable Nubia Preston PA-C Unavailable Unavailab Joseph Thompson MD Unavailable [phone] Devika Bashir NP Unavailable Unavailable [facility], Pcp Primary Care Provider Unavailabl e Encounter Details Date Type Department Care Team Description 10/26/2010 Political Worker Report Medical Records [address] [place] [address] Lee Gil MD Social History Tobacco Use [...] on filedocumented in this encounter Care Teams Wire Splicer Relationship Specialty Start Date End Date Anthony Whittaker MD [address] [place] [address] [phone] PCP - General 10/09/1995 07/20/20 Royal Pierre MD [address] [place] [address] [phone] PCP - General Internal Medicine 07/21/20 12/27/23 [facility], Pcp [address] [place] [address] PCP - General Internal Medicine 12/28/23 Chel Montilla MD [address] [place] [address] Specialist Cardiology 02/25/21 Nubia Preston PA-C [address] [place] [address] Cardiology 05/24/21 01/28/23 Joseph Berg MD [address] [place] [address] Specialist Cardiology 01/24/23 Devika Bashir NP [address] [place] [address] Cardiology 01/29/23 documented as of this encounter
--- OUTSIDE RECORDS SUMMARY | 2024-09-25 17:45 | XMS_ITS | Encounter Summary ---
Author Organization [facility] Address [address] [place] [address] Care Team Providers Care Sports Coordinator Name Role Phone Royal Pierre MD Primary Care Provider [phone] Chel Montilla MD Unavailable Nubia Preston PA-C Unavailable Unavailab Joseph Thompson MD Unavailable [phone] Devika Bashir NP Unavailable Unavailable [facility], Pcp Primary Care Provider Unavailabl e Encounter Details Date Type Department Care Team Description 03/02/2021 SCAN Medical Records [address] [place] [address] Abstract, Provider Social History Tobacco Use Types [...] on filedocumented in this encounter Care Teams Sports Coordinator Relationship Specialty Start Date End Date Royal Pierre MD [address] [place] [address] PCP - General Internal Medicine 07/21/20 12/27/23 [facility], Pcp [address] [place] [address] PCP - General Internal Medicine 12/28/23 Chel Montilla MD [address] [place] [address] Specialist Cardiology 02/25/21 Nubia Preston PA-C [address] [place] [address] Cardiology 05/24/21 01/28/23 Joseph Berg MD [address] [place] [address] Specialist Cardiology 01/24/23 Devika Bashir NP [address] [place] [address] Cardiology 01/29/23 documented as of this encounter
--- OUTSIDE RECORDS SUMMARY | 2024-09-25 17:45 | XMS_ITS | Encounter Summary ---
Author Organization [facility] Address [address] [place] [address] Care Team Providers Care Adjunct Physical Education Instructor Name Role Phone Anthony Whittaker MD Primary Care Provider Royal Pierre MD Primary Care Provider [phone] Chel Montilla MD Unavailable Nubia Preston PA-C Unavailable Unavailab Joseph Thompson MD Unavailable [phone] Devika Bashir NP Unavailable Unavailable [facility], Pcp Primary Care Provider Unavailabl e Encounter Details Date Type Department Care Team Description 11/11/2011 Hospital Medical Records [address] [place] [address] Jase Sandra MD Social History Tobacco Use [...] on filedocumented in this encounter Care Teams Adjunct Physical Education Instructor Relationship Specialty Start Date End Date Anthony Whittaker MD [address] [place] [address] PCP - General 10/09/1995 07/20/20 Royal Pierre MD [address] [place] [address] PCP - General Internal Medicine 07/21/20 12/27/23 [facility], Pcp [address] [place] [address] PCP - General Internal Medicine 12/28/23 Chel Montilla MD [address] [place] [address] Specialist Cardiology 02/25/21 Nubia Preston PA-C [address] [place] [address] Cardiology 05/24/21 01/28/23 Joseph Berg MD [address] [place] [address] Specialist Cardiology 01/24/23 Devika Bashir NP [address] [place] [address] Cardiology 01/29/23 documented as of this encounter
--- OUTSIDE RECORDS SUMMARY | 2024-09-25 17:45 | XMS_ITS | Encounter Summary ---
Author Organization [facility] Address [address] [place] [address] Care Team Providers Care Senior Policy Associate Name Role Phone Anthony Whittaker MD Primary Care Provider [phone] Royal Pierre MD Primary Care Provider [phone] Chel Montilla MD Unavailable Nubia Preston PA-C Unavailable Unavailab Joseph Thompson MD Unavailable [phone] Devika Bashir NP Unavailable Unavailable [facility], Pcp Primary Care Provider Unavailabl e Encounter Details Date Type Department Care Team Description 11/11/2019 Equipment Monitor Phototypesetting Report Medical Records [address] [place] [address] 13265 Chel Montilla MD [address] [place] [address] [phone] Social History Tobacco Use Types Packs/Day Years [...] filedocumented in this encounter Care Teams Senior Policy Associate Relationship Specialty Start Date End Date Anthony Whittaker MD [address] [place] [address] [phone] PCP - General 10/09/1995 07/20/20 Royal Pierre MD [address] [place] [address] 26615 PCP - General Internal Medicine 07/21/20 12/27/23 [facility], Pcp [address] [place] [address] PCP - General Internal Medicine 12/28/23 Chel Montilla MD [address] [place] [address] Specialist Cardiology 02/25/21 Nubia Preston PA-C [address] [place] [address] Cardiology 05/24/21 01/28/23 Joseph Berg MD [address] [place] [address] Specialist Cardiology 01/24/23 Devika Bashir NP [address] [place], [place] [phone] Cardiology 01/29/23 documented as of this encounter
--- OUTSIDE RECORDS SUMMARY | 2024-09-25 17:45 | XMS_ITS | Encounter Summary ---
Author Organization [facility] Address [address] [place] [address] Care Team Providers Care Story Editor Name Role Phone Anthony Whittaker MD Primary Care Provider [phone] Royal Pierre MD Primary Care Provider Chel Montilla MD Unavailable Nubia Preston PA-C Unavailable Unavailab Joseph Thompson MD Unavailable [phone] Devika Bashir NP Unavailable Unavailable [facility], Pcp Primary Care Provider Unavailabl e Reason for Visit * Reason Comments E-prescribe Rx Request Encounter Details Date Type Department Care Team Description 07/05/2016 Refill Adult Medicine [address] [phone] Reno Marie PA-C [address] [place] [address] [phone] E-prescribe Rx Request Social History Tobacco Use [...] encounter Miscellaneous Notes * Telephone Encounter - Carlton Leo - 07/06/2016 9:08 AM EST Patient would like script to be: E-PRESCRIBED/FAXED TO PHARMACY WHEN WAS THE PATIENT'S LAST APPOINTMENT IN ADULT MEDICINE? 02/14/16 WHEN WAS THE LAST TIME THE PATIENT SAW THEIR PCP? 01/05/16 Does patient have an upcoming appointment? Yes 10/23/16 (THE MEDICATION REQUESTED IS ON THE MED LIST ABOVE) All of the medications requested were on the CURRENT MEDS list Did you check the Pharmacy information above?: YES Patient wants: 90 -day supply Is this a mail order prescription request ? NO Patients current insurance carrier is: Payor: [facility]/PPO POS / Plan: PPO $0 [employer] [id number] / Product Type: PPO [id number] documented in this encounter Plan of Treatment Not on file documented as of this encounter Visit Diagnoses Not on filedocumented in this encounter Care Teams Story Editor Relationship Specialty Start Date End Date Anthony Whittaker MD [address] [place] [address] PCP - General 10/09/1995 07/20/20 Royal Pierre MD [address] [place] [address] PCP - General Internal Medicine 07/21/20 12/27/23 [place] [address] PCP - General Internal Medicine 12/28/23 Chel Montilla MD [address] [place] [address] Specialist Cardiology 02/25/21 Nubia Preston PA-C [address] [place] [address] Cardiology 05/24/21 01/28/23 Joseph Berg MD [address] [place] [address] Specialist Cardiology 01/24/23 Devika Bashir, AYUSH [address] [place] [address] Cardiology 01/29/23 documented as of this encounter
--- OUTSIDE RECORDS SUMMARY | 2024-09-25 17:45 | XMS_ITS | Encounter Summary ---
Author Organization [facility] Address [address] [place] [address] Care Team Providers Care Livestock Farmer Name Role Phone Royal Pierre MD Primary Care Provider [phone] Chel Montilla MD Unavailable Joseph Berg MD Unavailable [phone] Devika Bashir REPLANTING MACHINE CREWMAN Unavailable Unavailable [facility], Pcp Primary Care Provider Unavailabl e Encounter Details Date Type Department Care Team Description 06/24/[facility]23 [facility] [address] [place] [address] [facility] Social History Tobacco Use Types Packs/Day [...] on filedocumented in this encounter Care Teams Livestock Farmer Relationship Specialty Start Date End Date Royal Pierre MD [address] [place] [address] 14044 PCP - General Internal Medicine 07/21/20 12/27/23 [facility], Pcp [address] [place] [address] 76476 PCP - General Internal Medicine 12/28/23 Chel Montilla MD [address] [place] [address] [phone] Specialist Cardiology 02/25/21 Joseph Berg MD [address] [place] [address] 87798 Specialist Cardiology 01/24/23 Devika Bashir NP [address] [place] [address] Cardiology 01/29/23 documented as of this encounter
--- OUTSIDE RECORDS SUMMARY | 2024-09-25 17:45 | XMS_ITS | Encounter Summary ---
Author Organization [facility] Address [address] [place] [address] Care Team Providers Care Director Of Advertising Sales Name Role Phone Anthony Whittaker MD Primary Care Provider [phone] Royal Pierre MD Primary Care Provider [phone] Chel Montilla MD Unavailable Nubia Preston PA-C Unavailable Unavailab Joseph Thompson MD Unavailable [phone] Devika Bashir NP Unavailable Unavailable [facility], Pcp Primary Care Provider Unavailabl e Reason for Visit * Reason Onset Date Comments VNA Call 03/15/2018 Encounter Details Date Type Department Care Team Description 03/15/2018 Telephone Adult Medicine [address] [phone] Anthony Whittaker MD [address] [place] [address] [facility] Call Social History Tobacco Use Types Packs/Day Years [...] Telephone Encounter - Aaron George L.P.N. - 03/15/2018 1:27 PM EDT See message from [facility] Patient declined services * Telephone Encounter - Tonja Cross - 03/15/2018 1:19 PM EDT [facility]NA CALL Which [facility]NA office is calling? [place] [facility] Full name of caller: Binaka Joaquín The caller is A nurse Is the caller at the patients home?: YES Reason for call: the patient was d/c from hospital on 03/14/18 and [place] [facility] went into home to start services . Bianka states pt does not want Home care services Does caller need an urgent call back? YES if needed Was CONTACT Telephone # obtained above?: NO Fax #: documented in this encounter Plan of Treatment Not on file documented as of this encounter Visit Diagnoses Not on filedocumented in this encounter Care Teams Director Of Advertising Sales Relationship Specialty Start Date End Date Anthony Whittaker MD [address] [place] [address] PCP - General 10/09/1995 07/20/20 Royal Pierre MD [address] [place] [address] 870[address] PCP - General Internal Medicine 07/21/20 12/27/23 [facility], Pcp [address] [place] [address] 43185 PCP - General Internal Medicine 12/28/23 Chel Montilla MD [address] [place] [address] Specialist Cardiology 02/25/21 Nubia Preston PA-C [address] [place] [address] 55124 Cardiology 05/24/21 01/28/23 Joseph Berg MD [address] [place] [address] 45671 Specialist Cardiology 01/24/23 Devika Bashir NP [address] [place] [address] 00[address] Cardiology 01/29/23 documented as of this encounter
--- OUTSIDE RECORDS SUMMARY | 2024-09-25 17:45 | XMS_ITS | Encounter Summary ---
Author Organization [facility] Address [address] [place] [address] Care Team Providers Care Supervisor Crack Off Name Role Phone Anthony Whittaker MD Primary Care Provider [phone] Royal Pierre MD Primary Care Provider [phone] Chel Montilla MD Unavailable Nubia Preston PA-C Unavailable Unavailab Joseph Thompson MD Unavailable [phone] Devika Bashir NP Unavailable Unavailable [facility], [facility], Pcp Primary Care Provider Unavailabl e Reason for Visit * Reason Onset Date Comments Faxed Refill 03/03/2020 Encounter Details Date Type Department Care Team Description 03/03/2020 Refill Adult Medicine [address] [address] Anthony Whittaker MD [address] [place] [address] Faxed Refill Social History Tobacco Use Types [...] Miscellaneous Notes * Telephone Encounter - Gee Vlilalta M.A. - 03/04/2020 3:27 PM EDT Faxed [...] / Plan: [place] / Product Type: MEDICARE [id number] documented in this encounter Plan of Treatment Not on file documented as of this encounter Visit Diagnoses Not on filedocumented in this encounter Care Teams Supervisor Crack Off Relationship Specialty Start Date End Date Anthony Whittaker MD [address] [place] [address] 12833 PCP - General 10/09/1995 07/20/20 Royal Pierre MD [address] [place] [address] 07460 PCP - General Internal Medicine 07/21/20 12/27/23 [facility], [facility], [place] [phone] PCP - General Internal Medicine 12/28/23 Chel Montilla MD [address] [place] [address] Specialist Cardiology 02/25/21 Nubia Preston PA-C [address] [place] [address] 8[address]39 Cardiology 05/24/21 01/28/23 Joseph Berg MD [address] [place] [address]297 Specialist Cardiology 01/24/23 Devika Bashir NP [address] [place] [address] 85388 Cardiology 01/29/23 documented as of this encounter
--- OUTSIDE RECORDS SUMMARY | 2024-09-25 17:45 | XMS_ITS | Encounter Summary ---
Author Organization [facility] Address [address] [place] [address] Care Team Providers Care Able Bodied Watchman Name Role Phone Royal Peirre MD Primary Care Provider [phone] Chel Montilla MD Unavailable Nubia Preston PA-C Unavailable Unavailab Joseph Thompson MD Unavailable [phone] Devika Bashir NP Unavailable Unavailable Pending [facility], Pcp Primary Care Provider Unavailabl e Encounter Details Date Type Department Care Team Description 03/11/2021 Boring Machine Operator Horizontal Report Medical Records [address] [place] [address] Husam Guerra MD Social History Tobacco Use [...] on filedocumented in this encounter Care Teams Able Bodied Watchman Relationship Specialty Start Date End Date Royal Pierre MD [address] [place] [address] PCP - General Internal Medicine 07/21/20 12/27/23 Pending Sale To [facility], Pcp [address] [place] [address] 85210 PCP - General Internal Medicine 12/28/23 Chel Montilla MD [address] [place] [address] 15925 Specialist Cardiology 02/25/21 Nubia Preston PA-C [address] [place] [address] 24595 Cardiology 05/24/21 01/28/23 Joseph Berg MD [address] [place] [address] 57639 Specialist Cardiology 01/24/23 Devika Bashir NP [address] [place] [address]126 Cardiology 01/29/23 documented as of this encounter
--- OUTSIDE RECORDS SUMMARY | 2024-09-25 17:45 | XMS_ITS | Encounter Summary ---
Author Organization [facility] Address [address] [place] [address] Care Team Providers Care Cosmetic Assembler Name Role Phone Royal Pierre MD Primary Care Provider [phone] Chel Montilla MD Unavailable Nubia Preston PA-C Unavailable Unavailab Joseph Thompson MD Unavailable Devika Bashir NP Unavailable Unavailable [facility], Pcp Primary Care Provider Unavailabl e Encounter Details Date Type Department Care Team Description 03/25/2021 Orders Only Adult Medicine [address] [phone] Chantal Smith PA-C Social History Tobacco Use Types Packs/Day Years [...] on filedocumented in this encounter Care Teams Cosmetic Assembler Relationship Specialty Start Date End Date Royal Pierre MD [address] [place] [address] 68[address] PCP - General Internal Medicine 07/21/20 12/27/23 [facility], Pcp [address] [place] [address] PCP - General Internal Medicine 12/28/23 Chel Montilla MD [address] [place] [address] Specialist Cardiology 02/25/21 Nubia Preston PA-C [address] [place] [address] Cardiology 05/24/21 01/28/23 Joseph Breg MD [address] [place] [address] Specialist Cardiology 01/24/23 Devika Bashir NP [address] [place] [address] Cardiology 01/29/23 documented as of this encounter
--- OUTSIDE RECORDS SUMMARY | 2024-09-25 17:45 | XMS_ITS | Encounter Summary ---
Author Organization [facility] Address [address] [place] [address] Care Team Providers Care Caustic Plant Worker Name Role Phone Anthony Whittaker MD Primary Care Provider [phone] Royal Pierre MD Primary Care Provider [phone] Chel Montilla MD Unavailable Nubia Preston PA-C Unavailable Unavailab Joseph Thompson MD Unavailable [phone] Devika Bashir NP Unavailable Unavailable [facility], Pcp Primary Care Provider Unavailabl e Encounter Details Date Type Department Care Team Description 2017 Release of Information Medical Records [address] [place] [address]112 Abstract, Provider Social History Tobacco Use Types [...] on filedocumented in this encounter Care Teams Caustic Plant Worker Relationship Specialty Start Date End Date Anthony Whittaker MD [address] [place] [address]20 PCP - General 10/09/1995 07/20/20 Royal Pierre MD [address] [place] [address] [phone] PCP - General Internal Medicine 07/21/20 12/27/23 [facility], Pcp [address] [place] [address] PCP - General Internal Medicine 12/28/23 Chel Montilla MD [address] [place] [address] Specialist Cardiology 02/25/21 Nubia Preston PA-C [address] [place] [address] 34647 Cardiology 05/24/21 01/28/23 Joseph Berg MD [address] [place] [address] Specialist Cardiology 01/24/23 Devika Bashir NP [address] [place] [address] Cardiology 01/29/23 documented as of this encounter
--- OUTSIDE RECORDS SUMMARY | 2024-09-25 17:45 | XMS_ITS | Encounter Summary ---
Author Organization [facility] Address [address] [place] [address] Care Team Providers Care Public Safety Officer Name Role Phone Anthony Whittaker MD Primary Care Provider [phone] Royal Pierre MD Primary Care Provider [phone] Chel Montilla MD Unavailable Nubia Preston PA-C Unavailable Unavailab Joseph Thompson MD Unavailable [phone] Devika Bashir NP Unavailable Unavailable [facility], Pcp Primary Care Provider Unavailabl e Encounter Details Date Type Department Care Team Description 09/08/2010 Nascar Pit Crew Person Report Medical Records [address] [place] [address] 5[address]16 Lee Gil MD Social History Tobacco Use [...] on filedocumented in this encounter Care Teams Public Safety Officer Relationship Specialty Start Date End Date Anthony Whittaker MD [address] [place] [address]20 PCP - General 10/09/1995 07/20/20 Royal Pierre MD [address] [place] [address] [phone] PCP - General Internal Medicine 07/21/20 12/27/23 [facility], Pcp [address] [place] [address] PCP - General Internal Medicine 12/28/23 Chel Montilla MD [address] [place] [address] Specialist Cardiology 02/25/21 Nubia Preston PA-C [address] [place] [address] 9[address]27 Cardiology 05/24/21 01/28/23 Joseph Berg MD [address] [place] [address] Specialist Cardiology 01/24/23 Devika Bashir NP [address] [place] [address] Cardiology 01/29/23 documented as of this encounter
--- OUTSIDE RECORDS SUMMARY | 2024-09-25 17:45 | XMS_ITS | Encounter Summary ---
Author Organization [facility] Address [address] [place] [address] Care Team Providers Care Aircraft Metalsmith Name Role Phone Royal Pierre MD Primary Care Provider [phone] Chel Montilla MD Unavailable Joseph Berg MD Unavailable [phone] Devika Bashir PHONOGRAPH NEEDLE TIP MAKER Unavailable Unavailable [facility], Pcp Primary Care Provider Unavailabl e Encounter Details Date Type Department Care Team Description 06/24/2023 Magnetic Testing Technician Report Medical Records [address] [place] [address] [facility] Social History Tobacco Use Types Packs/Day [...] on filedocumented in this encounter Care Teams Aircraft Metalsmith Relationship Specialty Start Date End Date Royal Pierre MD [address] [place] [address] [phone] PCP - General Internal Medicine 07/21/20 12/27/23 [facility], Pcp [address] [place] [address] 21125 PCP - General Internal Medicine 12/28/23 Chel Montilla MD [address] [place] [address] [phone] Specialist Cardiology 02/25/21 Joseph Berg MD [address] [place] [address] 12428 Specialist Cardiology 01/24/23 Devika Bashir NP [address] [place] [address] Cardiology 01/29/23 documented as of this encounter
--- OUTSIDE RECORDS SUMMARY | 2024-09-25 17:45 | XMS_ITS | Encounter Summary ---
Author Organization [facility] Address [address] [place] [address] Care Team Providers Care Doping Supervisor Name Role Phone Royal Pierre MD Primary Care Provider [phone] Chel Montilla MD Unavailable Nubia Preston PA-C Unavailable Unavailab Joseph Thompson MD Unavailable [phone] Devika Bashir NP Unavailable Unavailable [facility], Pcp Primary Care Provider Unavailabl e Encounter Details Date Type Department Care Team Description 01/20/2022 Hospital Medical Records [address] [place] [address] [facility] Social History Tobacco Use Types [...] on filedocumented in this encounter Care Teams Doping Supervisor Relationship Specialty Start Date End Date Royal Pierre MD [address] [place] [address] [phone] PCP - General Internal Medicine 07/21/20 12/27/23 [facility], Pcp [address] [place] [address] 92337 PCP - General Internal Medicine 12/28/23 Chel Montilla MD [address] [place] [address] Specialist Cardiology 02/25/21 Nubia Preston PA-C [address] [place] [address] Cardiology 05/24/21 01/28/23 Joseph Berg MD [address] [place] [address] Specialist Cardiology 01/24/23 Devika Bashir NP [address] [place] [address] Cardiology 01/29/23 documented as of this encounter
--- OUTSIDE RECORDS SUMMARY | 2024-09-25 17:45 | XMS_ITS | Encounter Summary ---
Author Organization [facility] Address [address] [place] [address] Care Team Providers Care Clerk Name Role Phone Anthony Whittaker MD Primary Care Provider [phone] Royal Pierre MD Primary Care Provider [phone] Chel Montilla MD Unavailable Nubia Preston PA-C Unavailable Unavailab Joseph Thompson MD Unavailable [phone] Devika Bashir NP Unavailable Unavailable [facility], Pcp Primary Care Provider Unavailabl e Encounter Details Date Type Department Care Team Description 12/18/2019 Meal Cooker Report Medical Records [address] [place] [address] 31156 Husam Guerra MD Social History Tobacco Use [...] on filedocumented in this encounter Care Teams Clerk Relationship Specialty Start Date End Date Anthony Whittaker MD [address] [place] [address] PCP - General 10/09/1995 07/20/20 Royal Pierre MD [address] [place] [address] 01020 PCP - General Internal Medicine 07/21/20 12/27/23 [facility], Pcp [address] [place] [address]184 PCP - General Internal Medicine 12/28/23 Chel Montilla MD [address] [place] [address] Specialist Cardiology 02/25/21 Nubia Preston PA-C [address] [place] [address]404 Cardiology 05/24/21 01/28/23 Joseph Berg MD [address] [place] [address] Specialist Cardiology 01/24/23 Devika Bashir NP [address] [place] [address] Cardiology 01/29/23 documented as of this encounter
--- OUTSIDE RECORDS SUMMARY | 2024-09-25 17:46 | XMS_ITS | Encounter Summary ---
Author Organization [facility] Address [address] [place] [address] Care Team Providers Care Contract Clerk Name Role Phone Royal Pierre MD Primary Care Provider [phone] Chel Montilla MD Unavailable Joseph Berg MD Unavailable [phone] Devika Bashir HOSPICE CLINICAL MANAGER Unavailable Unavailable [facility], Pcp Primary Care Provider Unavailabl e Encounter Details Date Type Department Care Team Description 12/12/2023 Pairer Inspector Report Medical Records [address] [place] [address] Leila Merida MD Social History Tobacco Use [...] on filedocumented in this encounter Care Teams Contract Clerk Relationship Specialty Start Date End Date Royal Pierre MD [address] [place] [address] [phone] PCP - General Internal Medicine 07/21/20 12/27/23 [facility], Pcp [address] [place] [address] 6[address]30 PCP - General Internal Medicine 12/28/23 Chel Montilla MD [address] [place] [address] [phone] Specialist Cardiology 02/25/21 Joseph Berg MD [address] [place] [address]82 Specialist Cardiology 01/24/23 Devika Bashir NP [address] [place] [address] Cardiology 01/29/23 documented as of this encounter
--- OUTSIDE RECORDS SUMMARY | 2024-09-25 17:46 | XMS_ITS | Encounter Summary ---
Author Organization [facility] Address [address] [place] [address] Care Team Providers Care Interventional Sale Consultant Name Role Phone Anthony Whittaker MD Primary Care Provider [phone] Royal Pierre MD Primary Care Provider [phone] Chel Montilla MD Unavailable Nubia Preston PA-C Unavailable Unavailab Joseph Thompson MD Unavailable [phone] Devika Bashir NP Unavailable Unavailable [facility], Pcp Primary Care Provider Unavailabl e Encounter Details Date Type Department Care Team Description 03/27/2017 Retail Banker Report Medical Records [address] [place] [address]93 Ken Allen MD Social History Tobacco Use [...] on filedocumented in this encounter Care Teams Interventional Sale Consultant Relationship Specialty Start Date End Date Anthony Whittaker MD [address] [place] [address]20 PCP - General 10/09/1995 07/20/20 Royal Pierre MD [address] [place] [address] 01020 PCP - General Internal Medicine 07/21/20 12/27/23 [facility], Pcp [address] [place] [address] PCP - General Internal Medicine 12/28/23 Chel Montilla MD [address] [place] [address] Specialist Cardiology 02/25/21 Nubia Preston PA-C [address] [place] [address] 9[address]60 Cardiology 05/24/21 01/28/23 Joseph Berg MD [address] [place] [address] Specialist Cardiology 01/24/23 Devika Bashir NP [address] [place] [address] Cardiology 01/29/23 documented as of this encounter
--- OUTSIDE RECORDS SUMMARY | 2024-09-25 17:46 | XMS_ITS | Encounter Summary ---
Author Organization [facility] Address [address] [place] [address] Care Team Providers Care Pigment Presser Name Role Phone Royal Pierre MD Primary Care Provider [phone] Chel Montilla MD Unavailable Nubia Preston PA-C Unavailable Unavailab Joseph Thompson MD Unavailable [phone] Devika Bashir NP Unavailable Unavailable [facility], Pcp Primary Care Provider Unavailabl e Encounter Details Date Type Department Care Team Description 08/15/2021 Outpatient Services Director Report Medical Records [address] [place] [address] Abstract, Provider Social History Tobacco Use Types [...] on filedocumented in this encounter Care Teams Pigment Presser Relationship Specialty Start Date End Date Royal Pierre MD [address] [place] [address] 54369 PCP - General Internal Medicine 07/21/20 12/27/23 [facility], Pcp [address] [place] [address] 60924 PCP - General Internal Medicine 12/28/23 Chel Montilla MD [address] [place] [address] [phone] Specialist Cardiology 02/25/21 Nubia Preston PA-C [address] [place] [address] Cardiology 05/24/21 01/28/23 Joseph Berg MD [address] [place] [address] Specialist Cardiology 01/24/23 Devika Bashir NP [address] [place] [address] 55442 Cardiology 01/29/23 documented as of this encounter
--- OUTSIDE RECORDS SUMMARY | 2024-09-25 17:46 | XMS_ITS | Encounter Summary ---
Author Organization [facility] Address [address] [place] [address] Care Team Providers Care Home Housekeeper Name Role Phone Royal Pierre MD Primary Care Provider [phone] Chel Montilla MD Unavailable Nubia Preston PA-C Unavailable Unavailab Joseph Thompson MD Unavailable [phone] Devika Bashir NP Unavailable Unavailable [facility], Pcp Primary Care Provider Unavailabl e Reason for Visit * Reason Comments E-prescribe Rx Request Encounter Details Date Type Department Care Team Description 08/29/2021 Refill Adult Medicine [address] [phone] Raya Guillen NP E-prescribe Rx Request Social [...] / Plan: [place] / Product Type: MEDICARE [id number] documented in this encounter Plan of Treatment Not on file documented as of this encounter Visit Diagnoses Not on filedocumented in this encounter Care Teams Home Housekeeper Relationship Specialty Start Date End Date Royal Pierre MD [address] [place] [address] PCP - General Internal Medicine 07/21/20 12/27/23 [facility] [address] [place] [address] 76406 PCP - General Internal Medicine 12/28/23 Chel Montilla MD [address] [place] [address] Specialist Cardiology 02/25/21 Nubia Preston PA-C [address] [place] [address] Cardiology 05/24/21 01/28/23 Joseph Berg MD [address] [place] [address] Specialist Cardiology 01/24/23 Devika Bashir NP [address] [place] [address] Cardiology 01/29/23 documented as of this encounter
--- OUTSIDE RECORDS SUMMARY | 2024-09-25 17:46 | XMS_ITS | Clinical Summary ---
Author Organization [facility] Address [address] [place] [address] Care Team Providers Care Safety Assistant Name Role Phone Chle Montilla MD Unavailable Joseph Berg MD Unavailable [phone] Devika Bashir NP Unavailable Unavailable Community, [...] as frequent [place]. Prostate cancer 03/25/2021 Overview: [facility] Urology service with Dr. Guerra- bicalutamide initiated 03/11/21, radiation treatment at [facility] Ischemic cardiomyopathy 01/28/2021 Last Assessment & [...] & Plan: Excellent lipid profile CAD ANT [place] 1990 V FIB EF 35% 08/24/2005 Overview: Exercise nuclear stress test - 10/25 - EF 61%; no reversible defects - sees dr. Smith at [facility] Last Assessment & Plan: Stable coronary [...] VACCINE Discontinued 06/15/2020, , 04/28/2010 Care Teams Safety Assistant Relationship Specialty Start Date End Date Community, Pcp PCP - General Internal Medicine 12/28/23 Chel Montilla MD Specialist Cardiology 02/25/21 Joseph Berg MD Specialist Cardiology 01/24/23 Devika Bashir NP Cardiology 01/29/23
--- OUTSIDE RECORDS SUMMARY | 2024-09-25 17:46 | XMS_ITS | Encounter Summary ---
Author Organization [facility] Address [address] [place] [address] Care Team Providers Care Gas Plumbing Inspector Name Role Phone Anthony Whittaker MD Primary Care Provider Royal Pierre MD Primary Care Provider Chel Montilla MD Unavailable Nubia Preston PA-C Unavailable Unavailab Joseph Thompson MD Unavailable [phone] Devika Bashir NP Unavailable Unavailable [facility], Pcp Primary Care Provider Unavailabl e Reason for Visit * Reason Onset Date Comments LAB WORK 04/09/2020 Encounter Details Date Type Department Care Team Description 04/09/2020 Telephone Adult Medicine [address] [phone] Anthony Whittaker MD [address] [place] [address] 10292 LAB WORK Social History Tobacco Use Types [...] to have his lab work done at [facility] Cbc with auto diff, rbc,lipids documented in this encounter Plan of Treatment Not on file documented as of this encounter Visit Diagnoses Not on filedocumented in this encounter Care Teams Gas Plumbing Inspector Relationship Specialty Start Date End Date Anthony Whittaker MD [address] [place] [address] 48172 PCP - General 10/09/1995 07/20/20 Royal Pierre MD [address] [place] [address] 06096 PCP - General Internal Medicine 07/21/20 12/27/23 [facility], Pcp [address] [place] [address] 39851 PCP - General Internal Medicine 12/28/23 Chel Montilla MD [address] [place] [address] 51834 Specialist Cardiology 02/25/21 Nubia Preston PA-C [address] [place] [address] 16118 Cardiology 05/24/21 01/28/23 Joseph Berg MD [address] [place] [address] 28843 Specialist Cardiology 01/24/23 Devika Bashir NP [address] [place] [address] 39097 Cardiology 01/29/23 documented as of this encounter
--- OUTSIDE RECORDS SUMMARY | 2024-09-25 17:46 | XMS_ITS | Encounter Summary ---
Author Organization [facility] Address [address] [place] [address] Care Team Providers Care Beam Saw Operator Name Role Phone Royal Pierre MD Primary Care Provider [phone] Chel Montilla MD Unavailable Nubia Preston PA-C Unavailable Unavailab Joseph Thompson MD Unavailable [phone] Devika Bashir NP Unavailable Unavailable [facility], Pcp Primary Care Provider Unavailabl e Encounter Details Date Type Department Care Team Description 12/04/2022 Procurement Technician Report Medical Records [address] [place] [address] 78[address] Jocelynn Reese NP Social History Tobacco Use [...] on filedocumented in this encounter Care Teams Beam Saw Operator Relationship Specialty Start Date End Date Royal Pierre MD [address] [place] [address] [phone] PCP - General Internal Medicine 07/21/20 12/27/23 [facility], Pcp [address] [place] [address] 70612 PCP - General Internal Medicine 12/28/23 Chel Montilla MD [address] [place] [address] [phone] Specialist Cardiology 02/25/21 Nubia Preston PA-C [address] [place] [address] Cardiology 05/24/21 01/28/23 Joseph Berg MD [address] [place], [place] [phone] Specialist Cardiology 01/24/23 Devika Bashir NP [address] [place] [address] Cardiology 01/29/23 documented as of this encounter
--- OUTSIDE RECORDS SUMMARY | 2024-09-25 17:46 | XMS_ITS | Encounter Summary ---
Author Organization [facility] Address [address] [place] [address] Care Team Providers Care Washing Machine Loader And Puller Name Role Phone Royal Pierre MD Primary Care Provider [phone] Chel Montilla MD Unavailable Nubia Preston PA-C Unavailable Unavailab Joseph Thompson MD Unavailable [phone] Devika Bashir NP Unavailable Unavailable [facility], Pcp Primary Care Provider Unavailabl e Reason for Visit * Reason Comments Remote Device Check ALERT: 10 seconds [place] Encounter Details Date Type Department Care Team Description 01/15/2023 Remote Device Check Cardio PVC POC 154 [address] [facility] [address] [place], [place] [phone] Joseph Berg MD [address] [place] [address] [phone] Social History Tobacco Use Types Packs/Day Years [...] on filedocumented in this encounter Care Teams Washing Machine Loader And Puller Relationship Specialty Start Date End Date Royal Pierre MD [address] [place] [address] PCP - General Internal Medicine 07/21/20 12/27/23 [facility], Pcp [address] [place] [address] PCP - General Internal Medicine 12/28/23 Chel Montilla MD [address] [place] [address] Specialist Cardiology 02/25/21 Nubia Preston PA-C [address] [place] [address] Cardiology 05/24/21 01/28/23 Joseph Berg MD [address] [place] [address] Specialist Cardiology 01/24/23 Devika Bashir NP [address] [place], [place] [phone] Cardiology 01/29/23 documented as of this encounter
--- OUTSIDE RECORDS SUMMARY | 2024-09-25 17:46 | XMS_ITS | Encounter Summary ---
Author Organization [facility] Address [address] [place] [address] Care Team Providers Care Didactic Program In Dietetics Director Name Role Phone Royal Pierre MD Primary Care Provider [phone] Chel Montilla MD Unavailable Nubia Preston PA-C Unavailable Unavailab Joseph Thompson MD Unavailable [phone] Devika Bashir NP Unavailable Unavailable [facility], Pcp Primary Care Provider Unavailabl e Reason for Visit * Reason Comments E-prescribe Rx Request Encounter Details Date Type Department Care Team Description 08/28/2021 Refill Adult Medicine [address] [phone] Raya Guillen NP E-prescribe Rx Request Social [...] on filedocumented in this encounter Care Teams Didactic Program In Dietetics Director Relationship Specialty Start Date End Date Royal Pierre MD [address] [place] [address] PCP - General Internal Medicine 07/21/20 12/27/23 [facility], Pcp [address] [place] [address] PCP - General Internal Medicine 12/28/23 Chel Montilla MD [address] [place] [address] Specialist Cardiology 02/25/21 Nubia Preston PA-C [address] [place] [address] 74657 Cardiology 05/24/21 01/28/23 Joseph Berg MD [address] [place] [address] Specialist Cardiology 01/24/23 Devika Bashir NP [address] [place] [address] 25855 Cardiology 01/29/23 documented as of this encounter
--- OUTSIDE RECORDS SUMMARY | 2024-09-25 17:46 | XMS_ITS | Encounter Summary ---
Author Organization [facility] Address [address] [place] [address] Care Team Providers Care Mapping Editor Name Role Phone Royal Pierre MD Primary Care Provider [phone] Chel Montilla MD Unavailable Nubia Preston PA-C Unavailable Unavailab Joseph Thompson MD Unavailable [phone] Devika Bashir NP Unavailable Unavailable [facility], Pcp Primary Care Provider Unavailabl e Reason for Visit * Reason Onset Date Comments hospital follow up 12/08/2021 Encounter Details Date Type Department Care Team Description 12/08/2021 Telephone Adult Medicine [address] [phone] Royal Pierre MD [address] [place] [address] [phone] hospital follow up Social History Tobacco Use [...] on filedocumented in this encounter Care Teams Mapping Editor Relationship Specialty Start Date End Date Royal Pierre MD [address] [place] [address] PCP - General Internal Medicine 07/21/20 12/27/23 [facility], Pcp [address] [place] [address] 80279 PCP - General Internal Medicine 12/28/23 Chel Montilla MD [address] [place] [address] Specialist Cardiology 02/25/21 Nubia Preston PA-C [address] [place] [address] 10942 Cardiology 05/24/21 01/28/23 Joseph Berg MD [address] [place] [address] 34899 Specialist Cardiology 01/24/23 Devika Bashir NP [address] [place] [address] 43973 Cardiology 01/29/23 documented as of this encounter
== END 2024-09-25 13:58 | disposition home or self-care (01) ==
LOC: HO.LAB 13:57
PROVIDERS: PCP Internal Medicine; Visit Provider Urology
DX: C61 Malignant neoplasm of prostate (principal); Z12.5 Encounter for screening for malignant neoplasm of prostate
CPT/HCPCS: 36415; 84153; 99212

== ENCOUNTER → 2024-09-25 23:59 | Outpatient (BNV) | payer MEDICARE, OTHER, SELFPAY ==
--- NOTE | 2024-09-28 10:59 | MHC.OFFVIS ---
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 Allergies No Known Allergies [No Known Allergies*] Allergy (Verified 09/25/24 13:23) REPLACED BY [facility] Medical History Pulmonary fibrosis Colonic mass Allergies Dental abscess Dysphagia Elevated PSA Abrasion Bursitis of left shoulder Joint pain Effusion, left knee Prostate nodule Microscopic hematuria Bladder outlet obstruction Pes anserinus bursitis of right knee Effusion, right knee Ventricular tachycardia Ischemic cardiomyopathy Atherosclerotic cardiovascular disease Cardiomyopathy Pacemaker ILD (interstitial lung disease) Pulmonary nodules COPD (chronic obstructive pulmonary disease) Bursitis of right shoulder Medial meniscus tear Osteoarthritis of right knee Surgical History History of carpal tunnel release History of cholecystectomy History of tonsillectomy History of colonoscopy Family History Father No problems noted. Mother No problems noted. Son No problems noted. Social History Household Members: Spouse Housing: House Are you a primary career development associate to a significant other at home: No Do you presently have visiting nurse or other home services: No Alcohol intake: current Alcohol intake frequency: does not drink Alcohol type: beer Comment: once Q 3-6 month glass of wine Patient Tobacco Use Status: Former Tobacco user Tobacco use type: Cigarette Years Smoked: 30 years e-Cigarette/Vaping Use: Never Used Second Hand Smoke Exposure: Yes Advance Directives Date on File: 06/24/23 service: No Current occupational status: retired 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 Cognitive needs: No Hearing needs: Yes Vision needs: Yes Office Procedures Cardiac Device Check Cardiac Device Check Details: Date of service 09/25/2024; Battery life OK; normal lead parameters; no treated VT/VF; normal ICD function. [id number] Cardiac Interrogation, implant defibrillator w/interim Procedure code (CPT) selection complete Assessment & Plan Assessment & Plan (1) ICD (implantable cardioverter-defibrillator) in place: Code(s): Z95.810 - Presence of automatic (implantable) cardiac defibrillator Category: Medical (2) Ischemic cardiomyopathy: Code(s): I25.5 - Ischemic cardiomyopathy Category: Medical Plan x Coding Level of Care Code Procedure Only Diagnoses ICD (implantable cardioverter-defibrillator) in place Z95.810 Ischemic cardiomyopathy I25.5 CPT Codes Cardiac Device Check - Cardiac Device 13: [id number] Cardiac Interrogation, implant defibrillator w/interim ([id number])
== END ==
PROVIDERS: PCP Internal Medicine; Visit Provider Internal Medicine
DX: I25.5 Ischemic cardiomyopathy (principal); Z95.810 Presence of automatic (implantable) cardiac defibrillator
CPT/HCPCS: 93295

== ENCOUNTER 2024-10-16 09:49 | Outpatient (AMB) | payer MEDICARE, OTHER, SELFPAY ==
--- NOTE | 2024-10-16 09:50 | MHC.OFFVIS ---
Intake Visit Reasons: 6m/PSA Intake Note: Patient is present for 6M/PSA Urology Medication:TAMSULOSIN,ALLOPURINOL Antibiotic Allergy:NONE Blood Thinner:ASPIRIN Merchandising Execution Manager Required: No Allergies No Known Allergies [No Known Allergies*] Allergy (Verified 10/16/24 09:50) HPI Comments Details: Deacon is a very pleasant male. He is a patient of Dr Pierre. He is seen for the following urologic conditions. - prostate cancer - osteopenia following hormone therapy Telemedicine Evaluation 15 min Consultation [employer] [facility] Video PSA remains undetectable Still with occasional hot flashes Double check testosterone in six-month 11/05 P <0.1 T 3, 03/07 P <0.1, 09/08 < 0.1, 03/08 <0.1 T 9, 10/07 <0.1 Continue to review PSA every 6 months at 10 years Prostate cancer high grade, high volume diagnosed February 2021 PSA 18 PSA 10/04 <0.1, 01/04 <0.1 5, 04/06 <0.1 5, 08/07 <0.1 T3 Prostate cancer diagnosed by Dr. 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 4+4=8 (A,C,D,F,G,H,J); 4+5=9 (B, I, K, L) Tumor quantitation: Number cores positive:??11 Total number of cores:??12 Periprostatic fat inv.: Not identified. Seminal vesicle inv.: Not identified. Perineural inv.: Present. LVI: Not identified GnRH initial March 242020 after bicalutamide run in with finasteride - 08/07 completed finasteride Staging 04/05 CT scan no evidence of tru disease 04/05 bone scan no evidence of metastatic disease 10/03 DEXA scan osteopenia from long-term steroid use, 04/07 Osteopenia based on the lowest T-score value of -2.4 in the femoral neck Osteopenia Alendronate weekly [facility] Medical History Pulmonary fibrosis Colonic mass Allergies Dental abscess Dysphagia Elevated PSA Abrasion Bursitis of left shoulder Joint pain Effusion, left knee Prostate nodule Microscopic hematuria Bladder outlet obstruction Pes anserinus bursitis of right knee Effusion, right knee Ventricular tachycardia Ischemic cardiomyopathy Atherosclerotic cardiovascular disease Cardiomyopathy Pacemaker ILD (interstitial lung disease) Pulmonary nodules COPD (chronic obstructive pulmonary disease) Bursitis of right shoulder Medial meniscus tear Osteoarthritis of right knee Surgical History History of carpal tunnel release History of cholecystectomy History of tonsillectomy History of colonoscopy Family History Father No problems noted. Mother No problems noted. Son No problems noted. Social History Household Members: Spouse Housing: House Are you a primary career professional to a significant other at home: No Do you presently have visiting nurse or other home services: No Alcohol intake: current Alcohol intake frequency: does not drink Alcohol type: beer Comment: once Q 3-6 month glass of wine Patient Tobacco Use Status: Former Tobacco user Tobacco use type: Cigarette Years Smoked: 30 years e-Cigarette/Vaping Use: Never Used Second Hand Smoke Exposure: Yes Advance Directives Date on File: 06/24/23 service: No Current occupational status: retired 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 Cognitive needs: No Hearing needs: Yes Vision needs: Yes Review of Systems Const All systems reviewed & are unremarkable except as noted in HPI and below Reports no additional complaints Resp Reports no additional complaints GI Reports no additional complaints Reports as per HPI Musc Reports no additional complaints Physical Exam Telemedicine evaluation Appropriate responses Regular breathing rate and rhythm HEENT Head: Yes normal to inspection Ears: hearing grossly normal bilaterally Eyes General: appearance normal, both eyes and all related structures Neck Neck: Yes normal visual inspection Chest Chest palpation & inspection: normal inspection of the chest Resp Effort & Inspection: normal respiratory effort and able to speak in complete sentences Telehealth Telehealth Telehealth Platform: [facility] Location of provider rendering services: practice address Location of patient: address on file Patient Identification confirmed using: Name, : Yes Telehealth method: video Patient verbally consented to treatment: Yes Patient verbally consented to billing insurance company: Yes Patient informed of any privacy concerns related to visit: Yes Minutes spent on Phone/Video with Pt.: 15 Assessment & Plan Assessment & Plan (1) Prostate cancer: Comment: 04/05 High-grade, moderate volume, localized disease Initial therapy external beam radiation with GnRH [facility] August 2021 Code(s): C61 - Malignant neoplasm of prostate Category: Medical Plan PSA with T Orders: Orders Prostate Specific Antigen 6 Months C61 - Malignant neoplasm of prostate Testosterone, Total 6 Months C61 - Malignant neoplasm of prostate Patient Instructions: This note is constructed using voice recognition software. While every effort has been made to ensure accuracy time clock inspector errors may have been included. Imaging studies, laboratory and physical exam results were discussed and reviewed in detail. No major barriers to patient understanding were identified. An opportunity to ask questions regarding the treatment plan was provided. All questions were answered. The patient expressed understanding and agreement with the above treatment plan. The patient is aware they should contact our office by phone for worsening of their current condition or the appearance of new urologic symptoms. Compliance is encouraged with any medications and followup testing that is ordered. It is a privilege to participate in the urologic care of your patient. If you have any questions or concerns regarding treatment for the above conditions, or other urologic issues, please do not hesitate to contact me. The office telephone contact is [phone]. Sincerely, Dr Husam Guerra MD, [facility] - Urology Compassionate Specialist Care for the Genitourinary System Coding Level of Care Code Tele Est Pt Level 3 (43815) Complex EM visit Add On G2211 Diagnoses Prostate cancer C61
--- OUTSIDE RECORDS SUMMARY | 2024-10-16 10:21 | XMS_ITS | Encounter Summary ---
Author Organization [facility] Address [address] [place] [address] Care Team Providers Care Hat And Cap Sewer Name Role Phone Anthony Whittaker MD Primary Care Provider [phone] Royal Pierre MD Primary Care Provider [phone] Chel Montilla MD Unavailable Nubia Preston PA-C Unavailable Unavailab Joseph Thompson MD Unavailable [phone] Devika Bashir NP Unavailable Unavailable [facility], Pcp Primary Care Provider Unavailabl e Encounter Details Date Type Department Care Team Description 05/13/2018 Television Production Technician Report Medical Records [address] [place] [address] Juice Aguilera PA-C [address] [place] [address] 94684 Social History Tobacco Use Types Packs/Day Years [...] on filedocumented in this encounter Care Teams Hat And Cap Sewer Relationship Specialty Start Date End Date Anthony Whittaker MD [address] [place] [address] 86288 PCP - General 10/09/1995 07/20/20 Royal Pierre MD [address] [place] [address] PCP - General Internal Medicine 07/21/20 12/27/23 [facility], Pcp [address] [place] [address] PCP - General Internal Medicine 12/28/23 Chel Montilla MD [address] [place] [address] Specialist Cardiology 02/25/21 Nubia Preston PA-C [address] [place] [address] Cardiology 05/24/21 01/28/23 Joseph Berg MD [address] [place] [address] Specialist Cardiology 01/24/23 Devika Bashir NP [address] [place] [address] 25796 Cardiology 01/29/23 documented as of this encounter
--- OUTSIDE RECORDS SUMMARY | 2024-10-16 10:21 | XMS_ITS | Encounter Summary ---
Author Organization [facility] Address [address] [place] [address] Care Team Providers Care Hourly Manager Name Role Phone Royal Pierre MD Primary Care Provider [phone] Chel Montilla MD Unavailable Nubia Preston PA-C Unavailable Unavailab Joseph Thompson MD Unavailable [phone] Devika Bashir NP Unavailable Unavailable [facility], Pcp Primary Care Provider Unavailabl e Encounter Details Date Type Department Care Team Description 05/26/2021 Surveillance Dual Rate Officer Report Medical Records [address] [place] [address] Ken Allen MD Social History Tobacco Use [...] on filedocumented in this encounter Care Teams Hourly Manager Relationship Specialty Start Date End Date Royal Pierre MD [address] [place] [address] [phone] PCP - General Internal Medicine 07/21/20 12/27/23 [facility], Pcp [address] [place] [address] 64171 PCP - General Internal Medicine 12/28/23 Chel Montilla MD [address] [place] [address] [phone] Specialist Cardiology 02/25/21 Nubia Preston PA-C [address] [place] [address] 47428 Cardiology 05/24/21 01/28/23 Joseph Berg MD [address] [place], [place] [phone] Specialist Cardiology 01/24/23 Devika Bashir NP [address] [place] [address] 24321 Cardiology 01/29/23 documented as of this encounter
--- OUTSIDE RECORDS SUMMARY | 2024-10-16 10:21 | XMS_ITS | Encounter Summary ---
Author Organization [facility] Address [address] [place] [address] Care Team Providers Care Information Technology Coordinator Name Role Phone Anthony Whittaker MD Primary Care Provider [phone] Royal Pierre MD Primary Care Provider [phone] Chel Montilla MD Unavailable Nubia Preston PA-C Unavailable Unavailab Joseph Thompson MD Unavailable [phone] Devika Bashir NP Unavailable Unavailable [facility], Pcp Primary Care Provider Unavailabl e Encounter Details Date Type Department Care Team Description 05/08/2018 Sanding Machine Operator Report Medical Records [address] [place] [address]27 Marian Otero Social History Tobacco Use Types [...] filedocumented in this encounter Care Teams Information Technology Coordinator Relationship Specialty Start Date End Date Anthony Whittaker MD [address] [place] [address] PCP - General 10/09/1995 07/20/20 Royal Pierre MD [address] [place] [address] PCP - General Internal Medicine 07/21/20 12/27/23 [facility], Pcp [address] [place] [address] PCP - General Internal Medicine 12/28/23 Chel Montilla MD [address] [place] [address] Specialist Cardiology 02/25/21 Nubia Preston PA-C [address] [place] [address] Cardiology 05/24/21 01/28/23 Joseph Berg MD [address] [place] [address] Specialist Cardiology 01/24/23 Devika Bashir NP [address] [place] [address] Cardiology 01/29/23 documented as of this encounter
--- OUTSIDE RECORDS SUMMARY | 2024-10-16 10:21 | XMS_ITS | Encounter Summary ---
Author Organization [facility] Address [address] [place] [address] Care Team Providers Care Registered Nurse Bone Marrow Transplant Name Role Phone Anthony Whittaker MD Primary Care Provider [phone] Royal Pierre MD Primary Care Provider [phone] Chel Montilla MD Unavailable Nubia Preston PA-C Unavailable Unavailab Joseph Thompson MD Unavailable [phone] Devika Bashir NP Unavailable Unavailable [facility] [place], Pcp Primary Care Provider Unavailabl e Encounter Details Date Type Department Care Team Description 06/12/2018 Hot Bread Baker Report Medical Records [address] [place] [address] [facility] Social History Tobacco Use Types [...] on filedocumented in this encounter Care Teams Registered Nurse Bone Marrow Transplant Relationship Specialty Start Date End Date Anthony Whittaker MD [address] [place] [address] [phone] PCP - General 10/09/1995 07/20/20 Royal Pierre MD [address] [place] [address] 01020 PCP - General Internal Medicine 07/21/20 12/27/23 [facility], Pcp [address] [place] [address] PCP - General Internal Medicine 12/28/23 Chel Montilla MD [address] [place] [address] Specialist Cardiology 02/25/21 Nubia Preston PA-C [address] [place] [address] 32154 Cardiology 05/24/21 01/28/23 Joseph Berg MD [address] [place] [address] Specialist Cardiology 01/24/23 Devika Bashir NP [address] [place] [address] Cardiology 01/29/23 documented as of this encounter
--- OUTSIDE RECORDS SUMMARY | 2024-10-16 10:22 | XMS_ITS | Encounter Summary ---
Author Organization [facility] Address [address] [place] [address] Care Team Providers Care Policy Service Coordinator Name Role Phone Anthony Whittaker MD Primary Care Provider [phone] Royal Pierre MD Primary Care Provider [phone] Chel Montilla MD Unavailable Nubia Preston PA-C Unavailable Unavailab Joseph Thompson MD Unavailable [phone] Devika Bashir NP Unavailable Unavailable [facility], Pcp Primary Care Provider Unavailabl e Reason for Visit * Reason Onset Date Comments Call From Patient Family 03/08/2018 Encounter Details Date Type Department Care Team Description 03/08/2018 Telephone Adult Medicine [address] [phone] Anthony Whittaker MD [address] [place] [address] [phone] Call From Patient Family Social History Tobacco [...] SERGEY Gaviria * Telephone Encounter - Beatrice Mckinnon - 03/08/2018 2:44 PM EDT Patient calling to let Anthony Whittaker know that patient has been admitted to [facility] documented in this encounter Plan of Treatment Not on file documented as of this encounter Visit Diagnoses Not on filedocumented in this encounter Care Teams Policy Service Coordinator Relationship Specialty Start Date End Date Anthony Whittaker MD [address] [place] [address] 91114 PCP - General 10/09/1995 07/20/20 Royal Pierre MD [address] [place] [address] 17056 PCP - General Internal Medicine 07/21/20 12/27/23 [facility], Pcp [address] [place] [address] 94532 PCP - General Internal Medicine 12/28/23 Chel Montilla MD [address] [place] [address] 83344 Specialist Cardiology 02/25/21 Nubia Preston PA-C [address] [place] [address] 25803 Cardiology 05/24/21 01/28/23 Joseph Berg MD [address] [place] [address] Specialist Cardiology 01/24/23 Devika Bashir NP [address] [place] [address] 09561 Cardiology 01/29/23 documented as of this encounter
--- OUTSIDE RECORDS SUMMARY | 2024-10-16 10:22 | XMS_ITS ---
Author Organization [facility] Address [address] [facility] [place] [address] Care Team Providers Care Service Cashier Name Role Phone Gabby JENSEN, Royal Contreras Primary Care Provider Unav ailable Black, Maria Unavailable [phone] Allergies No Known Allergies REASON FOR VISIT [...] Ulcer of toe of left foot (disorder) ([id number]) Skin ulcer of toe of left foot, limited to breakdown of skin (L97.521) Active confirmed Nonapplicable Vital Signs Height 5 ft 6 in in 09/20/2023 Weight 156 lbs 09/20/2023 BMI 25.18 kg/m2 09/20/2023 Blood pressure systolic 126 mm Hg 09/20/19 24 Blood pressure diastolic 62 mm Hg 024 Procedures Procedure Date Ordered Date Performed Result Body Sit e 86116-CSSWKOQ NAIL, 6 OR MORE 09/20/2023 N/A 79305-Rayneawn Plate 09/20/2023 N/A Encounters Encounter Location Date Provider Diagnosis [facility] [place] [address] [place] [address] 09/20/2023 Maria Black Onychomycosis B35.1 ; Ingrown [...] Treatment Pending Test Test Name Order Date 53430-ELCCRRS NAIL, 6 OR MORE 09/20/2023 23095-Xpkboitf Plate 09/20/2023 Next Appt Details Follow Up: [...] Motrin was recommended for pain or discomfort (38368) Anesthesia 3cc of 1 percent Lid ocaine [...] as necessary. Patient chooses, no pharmaceutical tx (71066) Progress Notes * Deacon KEYES JrDOB:[birth year] (82 yo M)Acc No.[id number]:09/20/2023 Progress Note Patient:?Deacon Keyes Sandeep Provider:?Maria Maurer DPM :1940???Age:82 Y???Sex:Male Nate e:09/20/2023 Address:[address] [place] [address] [phone] Pcp:Royal Pierre MD Subjective: * Chief Complaints: * ???Painful nail(s) aggrevate d by shoes causing difficulty standing/walkingIngrown Nail * HPI: ???Painful Nails:?Pt States Last PCP Visit:?Date:?06/25/2023 * Medical History:? 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 Plan: * Treatment: 2.?Onychomycosis?Procedure: 40787-ITJUAYE NAIL, 6 OR MORE * Procedures:?Debride Nail 6-10:?Nail debridement?Nail debridement performed extensively to reduce/remove overall nail length and girth, subungual debris, and necrotic tissue, by manual and electrical means with use of a nail nipper and/or dremel, to more viable healthy nail plate or bed tissue 6-10. Silver nitrate used for any petechial bleeding as necessary. Patient chooses, no pharmaceutical tx (73766).?Nail Avulsion:?Location?Medial nail border , TA.?Anesthesia?3cc of 1 [...] Motrin was recommended for pain or discomfort (50174).? * Procedure Codes:?85150 DEBRI DE NAIL, 6 OR MORE, Modifiers: XS 55971 Avulsion Plate, Modifiers: TA * Follow Up:?2 Weeks * Images: * Sign off status: Completed true * Provider:?Maria Maurer DPM Date:?2023 Generated for Ángel palomo/Oni/Chapo on:?10/16/2024 10:22 AM EDT History and Physical Notes * HPI [...]
--- OUTSIDE RECORDS SUMMARY | 2024-10-16 10:22 | XMS_ITS | Encounter Summary ---
Author Organization [facility] Address [address] [place] [address] Care Team Providers Care Kitchen Aide Name Role Phone Anthony Whittaker MD Primary Care Provider [phone] Royal Pierre MD Primary Care Provider [phone] Chel Montilla MD Unavailable Nubia Preston PA-C Unavailable Unavailab Joseph Thompson MD Unavailable [phone] Devika Bashir NP Unavailable Unavailable [facility], Pcp Primary Care Provider Unavailabl e Encounter Details Date Type Department Care Team Description 03/28/2018 Hospital Medical Records [address] [place] [address] Nima Wilkins Social History Tobacco Use Types [...] on filedocumented in this encounter Care Teams Kitchen Aide Relationship Specialty Start Date End Date Anthony Whittaker MD [address] [place] [address]20 PCP - General 10/09/1995 07/20/20 Royal Pierre MD [address] [place] [address] 01020 PCP - General Internal Medicine 07/21/20 12/27/23 [facility], Pcp [address] [place] [address] PCP - General Internal Medicine 12/28/23 Chel Montilla MD [address] [place] [address] Specialist Cardiology 02/25/21 Nubia Preston PA-C [address] [place] [address] Cardiology 05/24/21 01/28/23 Joseph Berg MD [address] [place] [address] Specialist Cardiology 01/24/23 Devika Bashir NP [address] [place] [address] Cardiology 01/29/23 documented as of this encounter
--- OUTSIDE RECORDS SUMMARY | 2024-10-16 10:22 | XMS_ITS | Encounter Summary ---
Author Organization [facility] Address [address] [place] [address] Care Team Providers Care Rv Body Mechanic Name Role Phone oRyal Pierre MD Primary Care Provider [phone] Chel Montilla MD Unavailable Joseph Berg MD Unavailable [phone] Devika Bashir CHANGE MANAGER Unavailable Unavailable [facility], Pcp Primary Care Provider Unavailabl e Encounter Details Date Type Department Care Team Description 06/24/2023 Quality Control Microbiology Supervisor Report Medical Records [address] [place] [address] [facility] Social History Tobacco Use Types Packs/Day [...] on filedocumented in this encounter Care Teams Rv Body Mechanic Relationship Specialty Start Date End Date Royal Pierre MD [address] [place] [address] [phone] PCP - General Internal Medicine 07/21/20 12/27/23 [facility], Pcp [address] [place] [address] 99949 PCP - General Internal Medicine 12/28/23 Chel Montilla MD [address] [place] [address] [phone] Specialist Cardiology 02/25/21 Joseph Berg MD [address] [place] [address] 20757 Specialist Cardiology 01/24/23 Devika Bashir NP [address] [place] [address] Cardiology 01/29/23 documented as of this encounter
--- OUTSIDE RECORDS SUMMARY | 2024-10-16 10:22 | XMS_ITS | Encounter Summary ---
Author Organization [facility] Address [address] [place] [address] Care Team Providers Care Vice President Of Human Resources Name Role Phone Anthony Whittaker MD Primary Care Provider [phone] Royal Pierre MD Primary Care Provider [phone] Chel Montilla MD Unavailable Nubia Preston PA-C Unavailable Unavailab Joseph Thompson MD Unavailable [phone] Devika Bashir NP Unavailable Unavailable [facility], Pcp Primary Care Provider Unavailabl e Encounter Details Date Type Department Care Team Description 02/19/2018 Hospital Medical Records [address] [place] [address]38 Timothy Black Social History Tobacco Use Types Packs/Day Years [...] on filedocumented in this encounter Care Teams Vice President Of Human Resources Relationship Specialty Start Date End Date Anthony Whittaker MD [address] [place] [address] 01020 PCP - General 10/09/1995 07/20/20 Royal Pierre MD [address] [place] [address] [phone] PCP - General Internal Medicine 07/21/20 12/27/23 [facility], Pcp [address] [place] [address] 50123 PCP - General Internal Medicine 12/28/23 Chel Montilla MD [address] [place] [address] Specialist Cardiology 02/25/21 Nubia Preston PA-C [address] [place] [address] 79806 Cardiology 05/24/21 01/28/23 Joseph Berg MD [address] [place] [address] Specialist Cardiology 01/24/23 Devika Bashir NP [address] [place] [address] Cardiology 01/29/23 documented as of this encounter
--- OUTSIDE RECORDS SUMMARY | 2024-10-16 10:22 | XMS_ITS | Encounter Summary ---
Author Organization [facility] Address [address] [place] [address] Care Team Providers Care Order Entry Technician Name Role Phone Anthony Whittaker MD Primary Care Provider [phone] Royal Pierre MD Primary Care Provider [phone] Chel Montilla MD Unavailable Nubia Preston PA-C Unavailable Unavailab Joseph Thompson MD Unavailable [phone] Devika Bashir NP Unavailable Unavailable [facility], Pcp Primary Care Provider Unavailabl e Encounter Details Date Type Department Care Team Description 03/27/2018 Hospital Medical Records [address] [place] [address]113 Len Romero MD Social History Tobacco Use [...] on filedocumented in this encounter Care Teams Order Entry Technician Relationship Specialty Start Date End Date Anthony Whittaker MD [address] [place] [address] [phone] PCP - General 10/09/1995 07/20/20 Royal Pierre MD [address] [place] [address] 01020 PCP - General Internal Medicine 07/21/20 12/27/23 [facility], Pcp [address] [place] [address] PCP - General Internal Medicine 12/28/23 Chel Montilla MD [address] [place] [address] Specialist Cardiology 02/25/21 Nubia Preston PA-C [address] [place] [address] Cardiology 05/24/21 01/28/23 Joseph Berg MD [address] [place] [address] Specialist Cardiology 01/24/23 Devika Bashir NP [address] [place] [address] Cardiology 01/29/23 documented as of this encounter
--- OUTSIDE RECORDS SUMMARY | 2024-10-16 10:22 | XMS_ITS | Encounter Summary ---
Author Organization [facility] Address [address] [place] [address] Care Team Providers Care Bander And Cellophaner Machine Name Role Phone Royal Pierre MD Primary Care Provider [phone] Chel Montilla MD Unavailable Nubia Preston PA-C Unavailable Unavailab Joseph Thompson MD Unavailable [phone] Devika Bashir NP Unavailable Unavailable [facility], Pcp Primary Care Provider Unavailabl e Encounter Details Date Type Department Care Team Description 03/02/2021 SCAN Medical Records [address] [place] [address] 15682 Abstract, Provider Social History Tobacco Use Types [...] on filedocumented in this encounter Care Teams Bander And Cellophaner Machine Relationship Specialty Start Date End Date Royal Pierre MD [address] [place] [address]20 PCP - General Internal Medicine 07/21/20 12/27/23 [facility], Pcp [address] [place] [address] 61148 PCP - General Internal Medicine 12/28/23 Chel Montilla MD [address] [place] [address] Specialist Cardiology 02/25/21 Nubia Preston PA-C [address] [place] [address] Cardiology 05/24/21 01/28/23 Joseph Berg MD [address] [place] [address] Specialist Cardiology 01/24/23 Devika Bashir NP [address] [place] [address] Cardiology 01/29/23 documented as of this encounter
--- OUTSIDE RECORDS SUMMARY | 2024-10-16 10:22 | XMS_ITS | Encounter Summary ---
Author Organization [facility] Address [address] [place] [address] Care Team Providers Care Pathology Technician Name Role Phone Royal Pierre MD Primary Care Provider [phone] Chel Montilla MD Unavailable Nubia Preston PA-C Unavailable Unavailab Joseph Thompson MD Unavailable [phone] Devika Bashir NP Unavailable Unavailable [facility], Pcp Primary Care Provider Unavailabl e Encounter Details Date Type Department Care Team Description 09/15/2020 Senior Escrow Officer Report Medical Records [address] [place] [address] Edward Garcia MD Social History Tobacco Use [...] on filedocumented in this encounter Care Teams Pathology Technician Relationship Specialty Start Date End Date Royal Pierre MD [address] [place] [address] [phone] PCP - General Internal Medicine 07/21/20 12/27/23 [facility], Pcp [address] [place] [address] 82017 PCP - General Internal Medicine 12/28/23 Chel Montilla MD [address] [place] [address] [phone] Specialist Cardiology 02/25/21 Nubia Preston PA-C [address] [place] [address] Cardiology 05/24/21 01/28/23 Joseph Berg MD [address] [place], [place] [phone] Specialist Cardiology 01/24/23 Devika Bashir NP [address] [place] [address] Cardiology 01/29/23 documented as of this encounter
--- OUTSIDE RECORDS SUMMARY | 2024-10-16 10:22 | XMS_ITS | Encounter Summary ---
Author Organization [facility] Address [address] [place] [address] Care Team Providers Care Sanitation Tank Washer Name Role Phone Royal Pierre MD Primary Care Provider [phone] Chel Montilla MD Unavailable Joseph Berg MD Unavailable [phone] Devika Bashir NP Unavailable [facility]available [facility], Pcp Primary Care Provider Unavailabl e Reason for Visit * Reason Onset Date Comments Medical Records 06/28/2023 Encounter Details Date Type Department Care Team Description 06/28/2023 Telephone Cardio PVC POC [phone] [facility] [address] [place] [address] Chel Montilla MD [address] [place] [address] [phone] Medical Records Social History Tobacco Use Types [...] Medical Records Request Deacon was discharged from [facility] on 06[facility]25[facility]23. Can you please get records prior to his 2023 hospital follow up appointment? Thanks. documented in this encounter Plan of Treatment Not on file documented as of this encounter Visit Diagnoses Not on filedocumented in this encounter Care Teams Sanitation Tank Washer Relationship Specialty Start Date End Date Royal Pierre MD [address] [place] [address] PCP - General Internal Medicine 07/21/20 12/27/23 [facility], Pcp [address] [place], [place] [phone] PCP - General Internal Medicine 12/28/23 Chel Montilla MD [address] [place] [address] Specialist Cardiology 02/25/21 Joseph Berg MD [address] [place] [address] Specialist Cardiology 01/24/23 Devika Bashir NP [address] [place], [place] [phone] Cardiology 01/29/23 documented as of this encounter
--- OUTSIDE RECORDS SUMMARY | 2024-10-16 10:22 | XMS_ITS | Encounter Summary ---
Author Organization [facility] Address [address] [place] [address] Care Team Providers Care High School Principal Name Role Phone Anthony Whittaker MD Primary Care Provider [phone] Royal Pierre MD Primary Care Provider [phone] Chel Montilla MD Unavailable Nubia Preston PA-C Unavailable Unavailab Joseph Thompson MD Unavailable [phone] Devika Bashir NP Unavailable Unavailable [facility], Pcp Primary Care Provider Unavailabl e Encounter Details Date Type Department Care Team Description 06/04/2015 Business Doc Medical Records [address] [place] [address] Abstract, Provider Social History Tobacco Use Types [...] filedocumented in this encounter Care Teams High School Principal Relationship Specialty Start Date End Date Anthony Whittaker MD [address] [place] [address] [phone] PCP - General 10/09/1995 07/20/20 Royal Pierre MD [address] [place] [address]1486 PCP - General Internal Medicine 07/21/20 12/27/23 [facility], Pcp [address] [place] [address] PCP - General Internal Medicine 12/28/23 Chel Montilla MD [address] [place] [address] Specialist Cardiology 02/25/21 Nubia Preston PA-C [address] [place] [address] Cardiology 05/24/21 01/28/23 Joseph Berg MD [address] [place] [address] Specialist Cardiology 01/24/23 Devika Bashir NP [address] [place] [address] Cardiology 01/29/23 documented as of this encounter
--- OUTSIDE RECORDS SUMMARY | 2024-10-16 10:22 | XMS_ITS | Encounter Summary ---
Author Organization [facility] Address [address] [place] [address] Care Team Providers Care House Wrecker Name Role Phone Anthony Whittaker MD Primary Care Provider [phone] Royal Pierre MD Primary Care Provider [phone] Chel Montilla MD Unavailable Nubia Preston PA-C Unavailable Unavailab Joseph Thompson MD Unavailable [phone] Devika Bashir NP Unavailable Unavailable [facility], Pcp Primary Care Provider Unavailabl e Encounter Details Date Type Department Care Team Description 03/17/2014 Supervisor Policy Change Clerks Report Medical Records [address] [place] [address]11 Shaunna Fry MD Social History Tobacco Use [...] on filedocumented in this encounter Care Teams House Wrecker Relationship Specialty Start Date End Date Anthony Whittaker MD [address] [place] [address] PCP - General 10/09/1995 07/20/20 Royal Pierre MD [address] [place] [address] [phone] PCP - General Internal Medicine 07/21/20 12/27/23 Community, Pcp [address] [place] [address] PCP - General Internal Medicine 12/28/23 Chel Montilla MD [address] [place] [address] Specialist Cardiology 02/25/21 Nubia Preston PA-C [address] [place] [address] 8[address]17 Cardiology 05/24/21 01/28/23 Joseph Berg MD [address] [place] [address] Specialist Cardiology 01/24/23 Devika Bashir NP [address] [place] [address] Cardiology 01/29/23 documented as of this encounter
--- OUTSIDE RECORDS SUMMARY | 2024-10-16 10:22 | XMS_ITS | Encounter Summary ---
Author Organization [facility] Address [address] [place] [address] Care Team Providers Care Tire Bagger Name Role Phone Anthony Whittaker MD Primary Care Provider [phone] Royal Pierre MD Primary Care Provider [phone] Chel Montilla MD Unavailable uNbia Preston PA-C Unavailable Unavailab Joseph Thompson MD Unavailable [phone] Devika Bashir NP Unavailable Unavailable [facility], Pcp Primary Care Provider Unavailabl e Encounter Details Date Type Department Care Team Description 06/04/2013 Business Doc Medical Records [address] [place] [address] 22928 Abstract, Provider Social History Tobacco Use Types [...] on filedocumented in this encounter Care Teams Tire Bagger Relationship Specialty Start Date End Date Anthony Whittaker MD [address] [place] [address] 48[address] PCP - General 10/09/1995 07/20/20 Royal Pierre MD [address] [place] [address] 82013 PCP - General Internal Medicine 07/21/20 12/27/23 [facility], Pcp [address] [place] [address] PCP - General Internal Medicine 12/28/23 Chel Montilla MD [address] [place] [address] Specialist Cardiology 02/25/21 Nubia Preston PA-C [address] [place] [address] Cardiology 05/24/21 01/28/23 Joseph Berg MD [address] [place] [address] Specialist Cardiology 01/24/23 Devika Bashir NP [address] [place] [address] Cardiology 01/29/23 documented as of this encounter
--- OUTSIDE RECORDS SUMMARY | 2024-10-16 10:22 | XMS_ITS | Encounter Summary ---
Author Organization [facility] Address [address] [place] [address] Care Team Providers Care Awnings Mechanic Name Role Phone Anthony Whittaker MD Primary Care Provider [phone] Royal Pierre MD Primary Care Provider [phone] Chel Montilla MD Unavailable Nubia Preston PA-C Unavailable Unavailab Joseph Thompson MD Unavailable [phone] Devika Bashir NP Unavailable Unavailable [facility], Pcp Primary Care Provider Unavailabl e Encounter Details Date Type Department Care Team Description 10/26/2010 Silk Printer Report Medical Records [address] [place] [address] 76[address] Lee Gil MD Social History Tobacco Use [...] on filedocumented in this encounter Care Teams Awnings Mechanic Relationship Specialty Start Date End Date Anthony Whittaker MD [address] [place] [address] [phone] PCP - General 10/09/1995 07/20/20 Royal Pierre MD [address] [place] [address] [phone] PCP - General Internal Medicine 07/21/20 12/27/23 Community, Pcp [address] [place] [address] PCP - General Internal Medicine 12/28/23 Chle Montilla MD [address] [place] [address] Specialist Cardiology 02/25/21 Nubia Preston PA-C [address] [place] [address]684 Cardiology 05/24/21 01/28/23 Joseph Berg MD [address] [place] [address] Specialist Cardiology 01/24/23 Devika Bashir NP [address] [place] [address] Cardiology 01/29/23 documented as of this encounter
--- OUTSIDE RECORDS SUMMARY | 2024-10-16 10:22 | XMS_ITS | Encounter Summary ---
Author Organization [facility] Address [address] [place] [address] Care Team Providers Care Rigging Slinger Name Role Phone Royal Pierre MD Primary Care Provider [phone] Chel Montilla MD Unavailable Joseph Berg MD Unavailable [phone] Devika Bashir MANGLE ROLL OPERATOR Unavailable Unavailable [facility], Pcp Primary Care Provider Unavailabl e Encounter Details Date Type Department Care Team Description 05/03/2023 Zinc Plate Grainer Report Medical Records [address] [place] [address] 38918 Ken Allen MD Social History Tobacco Use [...] on filedocumented in this encounter Care Teams Rigging Slinger Relationship Specialty Start Date End Date Royal Pierre MD [address] [place] [address] PCP - General Internal Medicine 07/21/20 12/27/23 [facility], Pcp [address] [place] [address] 49413 PCP - General Internal Medicine 12/28/23 Chel Montilla MD [address] [place] [address]32 Specialist Cardiology 02/25/21 Joseph Berg MD [address] [place] [address] 09693 Specialist Cardiology 01/24/23 Devika Bashir NP [address] [place] [address] Cardiology 01/29/23 documented as of this encounter
--- OUTSIDE RECORDS SUMMARY | 2024-10-16 10:22 | XMS_ITS | Encounter Summary ---
Author Organization [facility] Address [address] [place] [address] Care Team Providers Care Saxophone Assembler Name Role Phone Anthony Whittaker MD Primary Care Provider [phone] Royal Pierre MD Primary Care Provider [phone] Chel Montilla MD Unavailable Nubia Preston PA-C Unavailable Unavailab Joseph Thompson MD Unavailable [phone] Devika Bashir NP Unavailable [facility] Pcp Primary Care Provider Unavailabl e Encounter Details Date Type Department Care Team Description 07/24/2013 Production Planner Report Medical Records [address] [place] [address] Lee Gli MD Social History Tobacco Use Types Packs/Day [...] on filedocumented in this encounter Care Teams Saxophone Assembler Relationship Specialty Start Date End Date Anthony Whittaker MD [address] [place] [address] [phone] PCP - General 10/09/1995 07/20/20 Royal Pierre MD [address] [place] [address] [phone] PCP - General Internal Medicine 07/21/20 12/27/23 Community, Pcp [address] [place] [address] PCP - General Internal Medicine 12/28/23 Chel Montilla MD [address] [place] [address] Specialist Cardiology 02/25/21 Nubia Preston PA-C [address] [place] [address] 79131 Cardiology 05/24/21 01/28/23 Joseph Berg MD [address] [place] [address] Specialist Cardiology 01/24/23 Devika Bashir NP [address] [place] [address] Cardiology 01/29/23 documented as of this encounter
--- OUTSIDE RECORDS SUMMARY | 2024-10-16 10:22 | XMS_ITS | Encounter Summary ---
Author Organization [facility] Address [address] [place] [address] Care Team Providers Care Command Post Craftsman Name Role Phone Anthony Whittaker MD Primary Care Provider [phone] Royal Pierre MD Primary Care Provider [phone] Chel Montilla MD Unavailable Nubia Preston PA-C Unavailable Unavailab Joseph Thompson MD Unavailable [phone] Devika Bashir NP Unavailable [facility], Pcp Primary Care Provider Unavailabl e Encounter Details Date Type Department Care Team Description 09/15/2012 Hospital Medical Records [address] [place] [address] Soy Nguyen Social History Tobacco Use Types [...] on filedocumented in this encounter Care Teams Command Post Craftsman Relationship Specialty Start Date End Date Anthony Whittaker MD [address] [place] [address] [phone] PCP - General 10/09/1995 07/20/20 Royal Pierre MD [address] [place] [address] 01020 PCP - General Internal Medicine 07/21/20 12/27/23 [facility], Pcp [address] [place] [address] PCP - General Internal Medicine 12/28/23 Chel Montilla MD [address] [place] [address] Specialist Cardiology 02/25/21 Nubia Preston PA-C [address] [place] [address] Cardiology 05/24/21 01/28/23 Joseph Berg MD [address] [place] [address] Specialist Cardiology 01/24/23 Devika Bashir NP [address] [place] [address] Cardiology 01/29/23 documented as of this encounter
--- OUTSIDE RECORDS SUMMARY | 2024-10-16 10:22 | XMS_ITS | Encounter Summary ---
Author Organization [facility] Address [address] [place] [address] Care Team Providers Care Prop Attendant Name Role Phone Royal Pierre MD Primary Care Provider [phone] Chel Montilla MD Unavailable Joseph Berg MD Unavailable [phone] Devika Bashir NP Unavailable Unavailable [facility], Pcp Primary Care Provider Unavailabl e Encounter Details Date Type Department Care Team Description 05/18/2023 Hospital Medical Records [address] [place] [address] [facility] Social History Tobacco Use Types Packs/Day [...] on filedocumented in this encounter Care Teams Prop Attendant Relationship Specialty Start Date End Date Royal Pierre MD [address] [place] [address] [phone] PCP - General Internal Medicine 07/21/20 12/27/23 [facility], Pcp [address] [place] [address] 27628 PCP - General Internal Medicine 12/28/23 Chel Montilla MD [address] [place] [address]671 Specialist Cardiology 02/25/21 Joseph Berg MD [address] [place] [address] 0[address] Specialist Cardiology 01/24/23 Devika Bashir NP [address] [place] [address] 73170 Cardiology 01/29/23 documented as of this encounter
--- OUTSIDE RECORDS SUMMARY | 2024-10-16 10:22 | XMS_ITS | Encounter Summary ---
Author Organization [facility] Address [address] [place] [address] Care Team Providers Care Mortar Worker Name Role Phone Royal Pierre MD Primary Care Provider Chel Montilla MD Unavailable Nubia Preston PA-C Unavailable Unavailab Joseph Thompson MD Unavailable [phone] Devika Bashir NP Unavailable Unavailable [facility], Pcp Primary Care Provider Unavailabl e Encounter Details Date Type Department Care Team Description 05/14/2021 SCAN Medical Records [address] [place] [address] Abstract, Provider Social History Tobacco Use Types [...] Date/Time Associated Diagnosis Comments OUTSIDE LAB Routine 05/14/2021 documented in this encounter Results * OUTSIDE LAB (05/14/2021) Provider Default LAB documented in this encounter Visit Diagnoses Not on filedocumented in this encounter Care Teams Mortar Worker Relationship Specialty Start Date End Date Royal Pierre MD [address] [place] [address] PCP - General Internal Medicine 07/21/20 12/27/23 [facility], Pcp [address] [place] [address] PCP - General Internal Medicine 12/28/23 Chel Montilla MD [address] [place] [address] Specialist Cardiology 02/25/21 Nubia Preston PA-C [address] [place] [address] Cardiology 05/24/21 01/28/23 Joseph Berg MD [address] [place] [address] Specialist Cardiology 01/24/23 Devika Bashir, AYUSH [address] [place] [address] 67497 Cardiology 01/29/23 documented as of this encounter
--- OUTSIDE RECORDS SUMMARY | 2024-10-16 10:22 | XMS_ITS | Encounter Summary ---
Author Organization [facility] Address [address] [place] [address] Care Team Providers Care Derrickman Helper Name Role Phone Anthony Whittaker MD Primary Care Provider Royal Pierre MD Primary Care Provider Chel Montilla MD Unavailable Nubia Preston PA-C Unavailable Unavailab Joseph Thompson MD Unavailable [phone] Devika Bashir NP Unavailable Unavailable [facility], Pcp Primary Care Provider Unavailabl e Reason for Visit * Reason Onset Date Comments Laryngitis 02/12/2014 Encounter Details Date Type Department Care Team Description 02/12/2014 Telephone Adult Medicine [address] [phone] Anthony Whittaker MD [address] [place] [address] 08779 Laryngitis Social History Tobacco Use Types Packs/Day [...] / Plan: [place] / Product Type: MEDICARE [id number] documented in this encounter Plan of Treatment Not on file documented as of this encounter Visit Diagnoses Not on filedocumented in this encounter Care Teams Derrickman Helper Relationship Specialty Start Date End Date Anthony Whittaker MD [address] [place] [address] PCP - General 10/09/1995 07/20/20 Royal Pierre MD [address] [place] [address] 25952 PCP - General Internal Medicine 07/21/20 12/27/23 [facility], Pcp [address] [place] [address] 65645 PCP - General Internal Medicine 12/28/23 Chel Montilla MD [address] [place] [address] Specialist Cardiology 02/25/21 Nubia Preston PA-C [address] [place] [address] 26027 Cardiology 05/24/21 01/28/23 Joseph Berg MD [address] [place] [address] Specialist Cardiology 01/24/23 Devika Bashir NP [address] [place], [place] [phone] Cardiology 01/29/23 documented as of this encounter
--- OUTSIDE RECORDS SUMMARY | 2024-10-16 10:22 | XMS_ITS | Encounter Summary ---
Author Organization [facility] Address [address] [place] [address] Care Team Providers Care Rn Plasma Center Name Role Phone Anthony Whittaker MD Primary Care Provider Royal Pierre MD Primary Care Provider Chel Montilla MD Unavailable Nubia Preston PA-C Unavailable Unavailab Joseph Thompson MD Unavailable [phone] Devika Bashir NP Unavailable Unavailable [facility], Pcp Primary Care Provider Unavailabl e Reason for Visit * Reason Comments E-prescribe Rx Request Encounter Details Date Type Department Care Team Description 11/11/2017 Refill Adult Medicine [address] [phone] Anthony Whittaker MD [address] [place] [address] [phone] E-prescribe Rx Request Social History Tobacco Use [...] Telephone Encounter - Sera Bell M.A. - 11/12/2017 11:09 AM EDT Lab Results Component Value Date NA 135 10/17/2017 K 4.6 10/17/2017 CO2 29.5 10/17/2017 CL 96 10/17/2017 BUN 13 10/17/2017 CREAT 1.0 10/17/2017 GLU 103 10/17/2017 CA 9.1 10/17/2017 GFR > 60 10/17/2017 Last ov with pcp 10/24/17 * Telephone Encounter - Shoshana Aj - 11/12/2017 11:02 AM EDT Patient would like script to be: E-PRESCRIBED/FAXED TO PHARMACY WHEN WAS THE PATIENT'S LAST APPOINTMENT IN ADULT MEDICINE? 10/24/17 WHEN WAS THE LAST TIME THE PATIENT SAW THEIR PCP? Same as above Does patient have an upcoming appointment? Yes 05/08/18 (THE MEDICATION REQUESTED IS ON THE MED LIST ABOVE) All of the medications requested were on the CURRENT MEDS list Did you check the Pharmacy information above?: NO Patient wants: 90 -day supply Is this a mail order prescription request ? NO Patients current insurance carrier is: Payor: -[place] POS / Plan: PPO $0 [place] [id number] / Product Type: PPO [id number] documented in this encounter Plan of Treatment Not on file documented as of this encounter Visit Diagnoses Not on filedocumented in this encounter Care Teams Rn Plasma Center Relationship Specialty Start Date End Date Anthony Whittaker MD [address] [place] [address] 25930 PCP - General 10/09/1995 07/20/20 Royal Pierre MD [address] [place] [address] PCP - General Internal Medicine 07/21/20 12/27/23 [facility], Pcp [address] [place] [address] PCP - General Internal Medicine 12/28/23 Chel Montilla MD [address] [place] [address] Specialist Cardiology 02/25/21 Nubia Preston PA-C [address] [place] [address] Cardiology 05/24/21 01/28/23 Joseph Berg MD [address] [place] [address] Specialist Cardiology 01/24/23 Devika Bashir NP [address] [place], [place] [phone] Cardiology 01/29/23 documented as of this encounter
--- OUTSIDE RECORDS SUMMARY | 2024-10-16 10:22 | XMS_ITS | Encounter Summary ---
Author Organization [facility] Address [address] [place] [address] Care Team Providers Care Fish Culturist Name Role Phone Royal Pierre MD Primary Care Provider [phone] Chel Montilla MD Unavailable Joseph Berg MD Unavailable [phone] Devika Bashir NP Unavailable [facility]available [facility], Pcp Primary Care Provider Unavailabl e Encounter Details Date Type Department Care Team Description 05/18/2023 SCAN Medical Records [address] [place] [address]134 Abstract, Provider Social History Tobacco Use Types [...] Associated Diagnosis Comments OUTSIDE PLAIN FILM Routine 05/18/2023 documented in this encounter Results * OUTSIDE PLAIN FILM (05/18/2023) Provider Default RADIOLOGY documented in this encounter Visit Diagnoses Not on filedocumented in this encounter Care Teams Fish Culturist Relationship Specialty Start Date End Date Royal Pierre MD [address] [place] [address] 48213 PCP - General Internal Medicine 07/21/20 12/27/23 [facility], Pcp [address] [place] [address] PCP - General Internal Medicine 12/28/23 Chel Montilla MD [address] [place] [address] Specialist Cardiology 02/25/21 Joseph Berg MD [address] [place] [address] Specialist Cardiology 01/24/23 Devika Bashir NP [address] [place] [address] Cardiology 01/29/23 documented as of this encounter
--- OUTSIDE RECORDS SUMMARY | 2024-10-16 10:22 | XMS_ITS | Encounter Summary ---
Author Organization [facility] Address [address] [place] [address] Care Team Providers Care Industrial Gas Production Operator Name Role Phone Anthony Whittaker MD Primary Care Provider [phone] Royal Pierre MD Primary Care Provider [phone] Chel Montilla MD Unavailable Nubia Preston PA-C Unavailable Unavailab Joseph Thompson MD Unavailable [phone] Devika Bashir NP Unavailable Unavailable [facility], Pcp Primary Care Provider Unavailabl e Reason for Visit * Reason Onset Date Comments Provider Call Back 04/03/2018 Encounter Details Date Type Department Care Team Description 04/03/2018 Telephone Adult Medicine [address] [phone] Anthony Whittaker MD [address] [place] [address] 54899 Provider Call Back Social History Tobacco Use [...] answering phone advised Pt is currently at [facility], being transferred to [facility] * Telephone Encounter - Anthony Whittaker MD [...] an appt at the flu clinic in [place] Please review and advise is aware Dr. [...] on filedocumented in this encounter Care Teams Industrial Gas Production Operator Relationship Specialty Start Date End Date Anthony Whittaker MD [address] [place] [address] 53814 PCP - General 10/09/1995 07/20/20 Royal Pierre MD [address] [place] [address] 17074 PCP - General Internal Medicine 07/21/20 12/27/23 [facility], [address] [address] PCP - General Internal Medicine 12/28/23 Chel Montilla MD [address] [place] [address] 15984 Specialist Cardiology 02/25/21 Nubia Preston PA-C [address] [place] [address] 61584 Cardiology 05/24/21 01/28/23 Joseph Berg MD [address] [place] [address] 22184 Specialist Cardiology 01/24/23 Devika Bashir NP [address] [place] [address] 45808 Cardiology 01/29/23 documented as of this encounter
--- OUTSIDE RECORDS SUMMARY | 2024-10-16 10:22 | XMS_ITS | Encounter Summary ---
Author Organization [facility] Address [address] [place] [address] Care Team Providers Care Audit Mgr Name Role Phone Royal Pierre MD Primary Care Provider [phone] Chel Montilla MD Unavailable Joseph Berg MD Unavailable Devika Bashir NP Unavailable Unavailable [facility], Pcp Primary Care Provider Unavailabl e Reason for Visit * Reason Onset Date Comments APPOINTMENT 03/28/2023 Called pt to see if he would like move his [place] appointment with Dr Berg up to 03/29/23. Encounter Details Date Type Department Care Team Description 03/28/2023 Telephone Cardio PVC POC [address] [place], [place] [phone] Joseph Berg MD [address] [place] [address] [phone] APPOINTMENT (Called pt to see if he [...] on filedocumented in this encounter Care Teams Audit Mgr Relationship Specialty Start Date End Date Royal Pierre MD [address] [place] [address] PCP - General Internal Medicine 07/21/20 12/27/23 [facility], Pcp [address] [place] [address] 28340 PCP - General Internal Medicine 12/28/23 Chel Montilla MD [address] [place] [address] Specialist Cardiology 02/25/21 Joseph Berg MD [address] [place] [address] 40792 Specialist Cardiology 01/24/23 Devika Bashir NP [address] [place] [address] 25065 Cardiology 01/29/23 documented as of this encounter
--- OUTSIDE RECORDS SUMMARY | 2024-10-16 10:22 | XMS_ITS | Encounter Summary ---
Author Organization [facility] Address [address] [place] [address] Care Team Providers Care Lodging Manager Name Role Phone Royal Pierre MD Primary Care Provider [phone] Chel Montilla MD Unavailable Joseph Berg MD Unavailable [phone] Devika Bashir DEPUTY ATTORNEY GENERAL Unavailable Unavailable [facility], Pcp Primary Care Provider Unavailabl e Encounter Details Date Type Department Care Team Description 06/25/2023 Hospital Medical Records [address] [place] [address] 86861 Perez Mei MD Social History Tobacco Use [...] on filedocumented in this encounter Care Teams Lodging Manager Relationship Specialty Start Date End Date Royal Pierre MD [address] [place] [address] 44994 PCP - General Internal Medicine 07/21/20 12/27/23 [facility], Pcp [address] [place] [address] 6[address]12 PCP - General Internal Medicine 12/28/23 Chel Montilla MD [address] [place] [address] [phone] Specialist Cardiology 02/25/21 Joseph Berg MD [address] [place] [address] 23233 Specialist Cardiology 01/24/23 Devika Bashir NP [address] [place] [address] Cardiology 01/29/23 documented as of this encounter
--- OUTSIDE RECORDS SUMMARY | 2024-10-16 10:22 | XMS_ITS | Encounter Summary ---
Author Organization [facility] Address [address] [place] [address] Care Team Providers Care Private Branch Exchange Repairer Name Role Phone Royal Pierre MD Primary Care Provider [phone] Chel Montilla MD Unavailable Joseph Berg MD Unavailable [phone] Devika Bashir ROLL OVER LOADER Unavailable Unavailable [facility], Pcp Primary Care Provider Unavailabl e Encounter Details Date Type Department Care Team Description 06/24/2023 [facility] Medical Records [address] [place] [address] [facility] Social History Tobacco Use Types Packs/Day Years [...] on filedocumented in this encounter Care Teams Private Branch Exchange Repairer Relationship Specialty Start Date End Date Royal Pierre MD [address] [place] [address] 29717 PCP - General Internal Medicine 07/21/20 12/27/23 [facility], Pcp [address] [place] [address] 39892 PCP - General Internal Medicine 12/28/23 Chel Motnilla MD [address] [place] [address] [phone] Specialist Cardiology 02/25/21 Joseph Berg MD [address] [place] [address] 04208 Specialist Cardiology 01/24/23 Devika Bashir NP [address] [place] [address] Cardiology 01/29/23 documented as of this encounter
--- OUTSIDE RECORDS SUMMARY | 2024-10-16 10:22 | XMS_ITS | Encounter Summary ---
Author Organization [facility] Address [address] [place] [address] Care Team Providers Care Supervisor Hand Workers Name Role Phone Anthony Whittaker MD Primary Care Provider [phone] Royal Pierre MD Primary Care Provider [phone] Chel Montilla MD Unavailable Nubia Preston PA-C Unavailable Unavailab Joseph Thompson MD Unavailable [phone] Devika Bashir NP Unavailable Unavailable [facility], Pcp Primary Care Provider Unavailabl e Encounter Details Date Type Department Care Team Description 07/14/2006 Hospital Medical Records [address] [place] [address] Susy Contreras MD Social History Tobacco Use [...] filedocumented in this encounter Care Teams Supervisor Hand Workers Relationship Specialty Start Date End Date Anthony Whittaker MD [address] [place] [address] PCP - General 10/09/1995 07/20/20 Royal Pierre MD [address] [place] [address] PCP - General Internal Medicine 07/21/20 12/27/23 [facility], Pcp [address] [place] [address] PCP - General Internal Medicine 12/28/23 Chel Montilla MD [address] [place] [address] Specialist Cardiology 02/25/21 Nubia Preston PA-C [address] [place] [address] Cardiology 05/24/21 01/28/23 Joseph Berg MD [address] [place] [address] Specialist Cardiology 01/24/23 Devika Bashir NP [address] [place] [address] Cardiology 01/29/23 documented as of this encounter
--- OUTSIDE RECORDS SUMMARY | 2024-10-16 10:22 | XMS_ITS | Encounter Summary ---
Author Organization [facility] Address [address] [place] [address] Care Team Providers Care Auto Rental Supervisor Name Role Phone Anthony Whittaker MD Primary Care Provider [phone] Royal Pierre MD Primary Care Provider [phone] Chel Montilla MD Unavailable Nubia Preston PA-C Unavailable Unavailab Joseph Thompson MD Unavailable [phone] Devika Bashir NP Unavailable Unavailable [facility], Pcp Primary Care Provider Unavailabl e Encounter Details Date Type Department Care Team Description 07/26/2018 Orders Only Medical Records [address] [place] [address] Abstract, Provider Social History Tobacco Use Types [...] on filedocumented in this encounter Care Teams Auto Rental Supervisor Relationship Specialty Start Date End Date Anthony Whittaker MD [address] [place], [place] [phone] PCP - General 10/09/1995 1/5/21 Royal Pierre MD [address] [place] [address] PCP - General Internal Medicine 07/21/20 12/27/23 [facility], Pcp [address] [place], [place] [phone] PCP - General Internal Medicine 12/28/23 Chel Montilla MD [address] [place] [address] Specialist Cardiology 02/25/21 Nubia Preston PA-C [address] [place] [address] Cardiology 05/24/21 01/28/23 Joseph Berg MD [address] [place] [address] Specialist Cardiology 01/24/23 Devika Bashir NP [address] [place] [address] Cardiology 01/29/23 documented as of this encounter
--- OUTSIDE RECORDS SUMMARY | 2024-10-16 10:22 | XMS_ITS | Encounter Summary ---
Author Organization [facility] Address [address] [place] [address] Care Team Providers Care Spring Former Machine Name Role Phone Anthony Whittaker MD Primary Care Provider [phone] Royal Pierre MD Primary Care Provider [phone] Chel Montilla MD Unavailable Nubia Preston PA-C Unavailable Unavailab Joseph Thompson MD Unavailable [phone] Devika Bashir NP Unavailable Unavailable [facility], Pcp Primary Care Provider Unavailabl e Encounter Details Date Type Department Care Team Description 12/06/2011 Link Trainer Maintenance Man Report Medical Records [address] [place] [address] Lee Gil MD Social History Tobacco Use [...] on filedocumented in this encounter Care Teams Spring Former Machine Relationship Specialty Start Date End Date Anthony Whittaker MD [address] [place] [address] [phone] PCP - General 10/09/1995 07/20/20 Royal Pierre MD [address] [place] [address] [phone] PCP - General Internal Medicine 07/21/20 12/27/23 [facility], Pcp [address] [place] [address] PCP - General Internal Medicine 12/28/23 Chel Montilla MD [address] [place] [address] Specialist Cardiology 02/25/21 Nubia Preston PA-C [address] [place] [address] Cardiology 05/24/21 01/28/23 Joseph Berg MD [address] [place] [address] Specialist Cardiology 01/24/23 Devika Bashir NP [address] [place] [address] Cardiology 01/29/23 documented as of this encounter
--- OUTSIDE RECORDS SUMMARY | 2024-10-16 10:22 | XMS_ITS | Encounter Summary ---
Author Organization [facility] Address [address] [place] [address] Care Team Providers Care Piano Mechanic Name Role Phone Royal Pierre MD Primary Care Provider [phone] Chel Montilla MD Unavailable Nubia Preston PA-C Unavailable Unavailab Joseph Thompson MD Unavailable [phone] Devika Bashir NP Unavailable Unavailable [facility], Pcp Primary Care Provider Unavailabl e Encounter Details Date Type Department Care Team Description 10/14/2020 Manager Of Hospital Report Medical Records [address] [place] [address] Edward Garcia MD Social History Tobacco Use [...] on filedocumented in this encounter Care Teams Piano Mechanic Relationship Specialty Start Date End Date Royal Pierre MD [address] [place] [address] [phone] PCP - General Internal Medicine 07/21/20 12/27/23 Pending [facility], Pcp [address] [place] [address] PCP - General Internal Medicine 12/28/23 Chel Montilla MD [address] [place] [address] [phone] Specialist Cardiology 02/25/21 Nubia Preston PA-C [address] [place] [address] Cardiology 05/24/21 01/28/23 Joseph Berg MD [address] [place], [place] [phone] Specialist Cardiology 01/24/23 Devika Bashir NP [address] [place] [address] Cardiology 01/29/23 documented as of this encounter
--- OUTSIDE RECORDS SUMMARY | 2024-10-16 10:22 | XMS_ITS | Encounter Summary ---
Author Organization [facility] Address [address] [place] [address] Care Team Providers Care Liquid Chlorine Operator Name Role Phone Anthony Whittaker MD Primary Care Provider [phone] Royal Pierre MD Primary Care Provider [phone] Chel Montilla MD Unavailable Nubia Preston PA-C Unavailable Unavailab Joseph Thompson MD Unavailable [phone] Devika Bashir NP Unavailable Unavailable [facility], Pcp Primary Care Provider Unavailabl e Encounter Details Date Type Department Care Team Description 01/30/2018 Hospital Medical Records [address] [place] [address] Jeanine Pedersen MD Social History Tobacco Use [...] on filedocumented in this encounter Care Teams Liquid Chlorine Operator Relationship Specialty Start Date End Date Anthony Whittaker MD [address] [place] [address] [phone] PCP - General 10/09/1995 07/20/20 Royal Pierre MD [address] [place] [address] PCP - General Internal Medicine 07/21/20 12/27/23 [facility], Pcp [address] [place] [address] PCP - General Internal Medicine 12/28/23 Chel Montilla MD [address] [place] [address] Specialist Cardiology 02/25/21 Nubia Preston PA-C [address] [place] [address] Cardiology 05/24/21 01/28/23 Joseph Berg MD [address] [place] [address] Specialist Cardiology 01/24/23 Devika Bashir NP [address] [place] [address] Cardiology 01/29/23 documented as of this encounter
--- OUTSIDE RECORDS SUMMARY | 2024-10-16 10:22 | XMS_ITS ---
Author Organization [facility] miguel Somers Address [address] [facility] [place] [address] Care Team Providers Care Shipping Services Sales Representative Name Role Phone Gabby JENSEN, Royal Contreras Primary Care Provider Unav ailable Erasto, Maria Unavailable [phone] Encounters Encounter Location Date Provider Diagnosis [facility] [address] [place] [address] 08/06/2023 Maria Maurer Plan Of Treatment No Information Progress Notes * Deacon KEYES JrDOB:[birth year] (84 yo M)Acc No.[id number]:08/06/2023 Progress Note Patient:?Deacon KEYES r Provider:?Maria Maurer DPM :1940???Age:82 Y???Sex:Male Nate e:08/06/2023 Address:[address] [place] [address] [facility] [id number] Pcp:Royal Pierre MD Subjective: * Chief Complaints: * ??? * Medical History:? Objective: * Vitals:? Assessment: Plan: * Treatment: * Images: * The named appointment provid er may or may not be the originator of this progress note, and it is not deemed complete until electronically signed by the appointment provider. Sign off status: Pending * Provider:?Maria Maurer DPM Date:?2023 Generated for Trii dewey/Oni/eTransmitting on:?10/16/2024 10:21 AM EDT
--- OUTSIDE RECORDS SUMMARY | 2024-10-16 10:22 | XMS_ITS | Encounter Summary ---
Author Organization [facility] Address [address] [place] [address] Care Team Providers Care Multigrapher Name Role Phone Anthony Whittaker MD Primary Care Provider Royal Pierre MD Primary Care Provider [phone] Chel Montilla MD Unavailable Nubia Preston PA-C Unavailable Unavailab Joseph Thompson MD Unavailable [phone] Devika Bashir NP Unavailable Unavailable [facility], Pcp Primary Care Provider Unavailabl e Encounter Details Date Type Department Care Team Description 09/26/2018 Graduate Advisor Report Medical Records [address] [place] [address] Go Ramos MD Social History Tobacco Use [...] on filedocumented in this encounter Care Teams Multigrapher Relationship Specialty Start Date End Date Anthony Whittaker MD [address] [place] [address] PCP - General 10/09/1995 07/20/20 Royal Pierre MD [address] [place] [address] [phone] PCP - General Internal Medicine 07/21/20 12/27/23 [facility], Pcp [address] [place] [address] 259[address] PCP - General Internal Medicine 12/28/23 Chel Montilla MD [address] [place] [address] Specialist Cardiology 02/25/21 Nubia Preston PA-C [address] [place] [address] 16435 Cardiology 05/24/21 01/28/23 Joseph Berg MD [address] [place] [address] Specialist Cardiology 01/24/23 Devika Bashir NP [address] [place] [address] Cardiology 01/29/23 documented as of this encounter
--- OUTSIDE RECORDS SUMMARY | 2024-10-16 10:22 | XMS_ITS | Encounter Summary ---
Author Organization [facility] Address [address] [place] [address] Care Team Providers Care Blocklayer Name Role Phone Anthony Whittaker MD Primary Care Provider [phone] Royal Pierre MD Primary Care Provider [phone] Chel Montilla MD Unavailable Nubia Preston PA-C Unavailable Unavailab Joseph Thompson MD Unavailable [phone] Devika Bashir NP Unavailable Unavailable [facility], Pcp Primary Care Provider Unavailabl e Encounter Details Date Type Department Care Team Description 02/08/2018 Naturopath Report Medical Records [address] [place] [address] Jeanine Pedersen MD Social History Tobacco Use [...] on filedocumented in this encounter Care Teams Blocklayer Relationship Specialty Start Date End Date Anthony Whittaker MD [address] [place] [address] PCP - General 10/09/1995 07/20/20 Royal Pierre MD [address] [place] [address] [phone] PCP - General Internal Medicine 07/21/20 12/27/23 [facility], Pcp [address] [place] [address] PCP - General Internal Medicine 12/28/23 Chel Montilla MD [address] [place] [address] Specialist Cardiology 02/25/21 Nubia Preston PA-C [address] [place] [address] Cardiology 05/24/21 01/28/23 Joseph Berg MD [address] [place] [address] Specialist Cardiology 01/24/23 Devika Bashir NP [address] [place] [address] Cardiology 01/29/23 documented as of this encounter
--- OUTSIDE RECORDS SUMMARY | 2024-10-16 10:23 | XMS_ITS | Encounter Summary ---
Author Organization [facility] Address [address] [place] [address] Care Team Providers Care Cotton Buyer Name Role Phone Royal Pierre MD Primary Care Provider [phone] Chel Montilla MD Unavailable Nubia Preston PA-C Unavailable Unavailab Joseph Thompson MD Unavailable [phone] Devika Bashir NP Unavailable Unavailable [facility], Pcp Primary Care Provider Unavailabl e Reason for Visit * Reason Onset Date Comments medication problems 09/01/2022 Questions ab out Carvedilol (coreg) 6.25 Encounter Details Date Type Department Care Team Description 09/01/2022 Telephone Cardio [facility] Diag Testing [address] [facility] [address] [place] [address] [phone] Chel Montilla MD [address] [place] [address] [phone] medication problems (Questions about Carvedilol (coreg) 6.25) [...] - 09/01/2022 11:47 AM EST Silvio from [facility], [address] [place] [address], has questions about Carvedilol (coreg) 6.25. Pls call [phone] documented in this encounter Plan of Treatment Not on file documented as of this encounter Visit Diagnoses Not on filedocumented in this encounter Care Teams Cotton Buyer Relationship Specialty Start Date End Date Royal Pierre MD [address] [place] [address] PCP - General Internal Medicine 07/21/20 12/27/23 [facility], Pcp [address] [place] [address] PCP - General Internal Medicine 12/28/23 Chel Montilla MD [address] [place] [address] Specialist Cardiology 02/25/21 Nubia Preston PA-C [address] [place] [address] Cardiology 05/24/21 01/28/23 Joseph Berg MD [address] [place] [address] Specialist Cardiology 01/24/23 Devika Bashir NP [address] [place] [address] Cardiology 01/29/23 documented as of this encounter
--- OUTSIDE RECORDS SUMMARY | 2024-10-16 10:23 | XMS_ITS | Encounter Summary ---
Author Organization [facility] Address [address] [place] [address] Care Team Providers Care Accounts Payable Supervisor Name Role Phone Anthony Whittaker MD Primary Care Provider [phone] Royal Pierre MD Primary Care Provider [phone] Chel Montilla MD Unavailable Nubia Preston PA-C Unavailable Unavailab Joseph Thompson MD Unavailable [phone] Devika Bashir NP Unavailable Unavailable [facility], Pcp Primary Care Provider Unavailabl e Encounter Details Date Type Department Care Team Description 07/11/2019 Business Doc Medical Records [address] [place] [address] Abstract, Provider Social History Tobacco Use Types [...] in this encounter Care Teams Accounts Payable Supervisor Relationship Specialty Start Date End Date Anthony Whittaker MD [address] [place] [address] PCP - General 10/09/1995 07/20/20 Royal Pierre MD [address] [place] [address] PCP - General Internal Medicine 07/21/20 12/27/23 [facility], Pcp [address] [place] [address] PCP - General Internal Medicine 12/28/23 Chel Montilla MD [address] [place] [address] Specialist Cardiology 02/25/21 Nubia Preston PA-C [address] [place] [address] Cardiology 05/24/21 01/28/23 Joseph Berg MD [address] [place] [address] Specialist Cardiology 01/24/23 Devika Bashir NP [address] [place] [address] Cardiology 01/29/23 documented as of this encounter
--- OUTSIDE RECORDS SUMMARY | 2024-10-16 10:23 | XMS_ITS | Encounter Summary ---
Author Organization [facility] Address [address] [place] [address] Care Team Providers Care Relations Specialist Name Role Phone Anthony Whittaker MD Primary Care Provider [phone] Royal Pierre MD Primary Care Provider [phone] Chel Montilla MD Unavailable Nubia Preston PA-C Unavailable Unavailab Joseph Thompson MD Unavailable [phone] Devika Bashir NP Unavailable Unavailable [facility], Pcp Primary Care Provider Unavailabl e Encounter Details Date Type Department Care Team Description 07/26/2016 Patch Finisher Report Medical Records [address] [place] [address] Chel Montilla MD [address] [place] [address] [phone] Social History Tobacco Use Types Packs/Day Years [...] on filedocumented in this encounter Care Teams Relations Specialist Relationship Specialty Start Date End Date Anthony Whittaker MD [address] [place] [address] [phone] PCP - General 10/09/1995 07/20/20 Royal Pierre MD [address] [place] [address] 29779 PCP - General Internal Medicine 07/21/20 12/27/23 [facility], Pcp [address] [place] [address] PCP - General Internal Medicine 12/28/23 Chel Montilla MD [address] [place] [address] Specialist Cardiology 02/25/21 Nubia Preston PA-C [address] [place] [address] Cardiology 05/24/21 01/28/23 Joseph Berg MD [address] [place] [address] Specialist Cardiology 01/24/23 Devika Bashir NP [address] [place], [place] [phone] Cardiology 01/29/23 documented as of this encounter
--- OUTSIDE RECORDS SUMMARY | 2024-10-16 10:23 | XMS_ITS | Encounter Summary ---
Author Organization [facility] Address [address] [place] [address] Care Team Providers Care Sales Planning Analyst Name Role Phone Anthony Whittaker MD Primary Care Provider Royal Pierre MD Primary Care Provider Chel Montilla MD Unavailable Nubia Preston PA-C Unavailable Unavailab Joseph Thompson MD Unavailable [phone] Devika Bashir NP Unavailable Unavailable [facility], Pcp Primary Care Provider Unavailabl e Reason for Visit * Reason Onset Date Comments LAB WORK 04/09/2020 Encounter Details Date Type Department Care Team Description 04/09/2020 Telephone Adult Medicine [address] [phone] Anthony Whittaker MD [address] [place] [address] LAB WORK Social History Tobacco Use Types [...] to have his lab work done at [facility] Cbc with auto diff, rbc,lipids documented in this encounter Plan of Treatment Not on file documented as of this encounter Visit Diagnoses Not on filedocumented in this encounter Care Teams Sales Planning Analyst Relationship Specialty Start Date End Date Anthony Whittaker MD [address] [place] [address] 79158 PCP - General 10/09/1995 07/20/20 Royal Pierre MD [address] [place] [address] 33094 PCP - General Internal Medicine 07/21/20 12/27/23 [facility], Pcp [address] [place] [address] 18375 PCP - General Internal Medicine 12/28/23 Chel Montilla MD [address] [place] [address] Specialist Cardiology 02/25/21 Nubia Preston PA-C [address] [place] [address] 64068 Cardiology 05/24/21 01/28/23 Joseph Berg MD [address] [place] [address] Specialist Cardiology 01/24/23 Devika Bashir NP [address] [place] [address] Cardiology 01/29/23 documented as of this encounter
--- OUTSIDE RECORDS SUMMARY | 2024-10-16 10:23 | XMS_ITS | Encounter Summary ---
Author Organization [facility] Address [address] [place] [address] Care Team Providers Care Envelope Addresser Name Role Phone Royal Pierre MD Primary Care Provider [phone] Chel Montilla MD Unavailable Nubia Preston PA-C Unavailable Unavailab Joseph Thompson MD Unavailable [phone] Devika Bashir NP Unavailable Unavailable [facility], Pcp Primary Care Provider Unavailabl e Encounter Details Date Type Department Care Team Description 01/20/2022 Hospital Medical Records [address] [place] [address] [facility] Social History Tobacco Use Types Packs/Day [...] on filedocumented in this encounter Care Teams Envelope Addresser Relationship Specialty Start Date End Date Royal Pierre MD [address] [place] [address] [phone] PCP - General Internal Medicine 07/21/20 12/27/23 [facility], Pcp [address] [place] [address] PCP - General Internal Medicine 12/28/23 Chel Montilla MD [address] [place] [address] Specialist Cardiology 02/25/21 Nubia Preston PA-C [address] [place] [address] Cardiology 05/24/21 01/28/23 Joseph Berg MD [address] [place] [address] Specialist Cardiology 01/24/23 Devika Bashir NP [address] [place] [address] Cardiology 01/29/23 documented as of this encounter
--- OUTSIDE RECORDS SUMMARY | 2024-10-16 10:23 | XMS_ITS | Encounter Summary ---
Author Organization [facility] Address [address] [place] [address] Care Team Providers Care Varnish Remover Name Role Phone Anthony Whittaker MD Primary Care Provider [phone] Royal Pierre MD Primary Care Provider [phone] Chel Montilla MD Unavailable Nubia Preston PA-C Unavailable Unavailab Joseph Thompson MD Unavailable [phone] Devika Bashir NP Unavailable Unavailable [facility], Pcp Primary Care Provider Unavailabl e Encounter Details Date Type Department Care Team Description 2017 Release of Information Medical Records [address] [place] [address] 28608 Abstract, Provider Social History Tobacco Use Types [...] on filedocumented in this encounter Care Teams Varnish Remover Relationship Specialty Start Date End Date Anthony Whittaker MD [address] [place] [address] PCP - General 10/09/1995 07/20/20 Royal Pierre MD [address] [place] [address] [phone] PCP - General Internal Medicine 07/21/20 12/27/23 [facility], Pcp [address] [place] [address] PCP - General Internal Medicine 12/28/23 Chel Montilla MD [address] [place] [address] Specialist Cardiology 02/25/21 Nubia Preston PA-C [address] [place] [address]46 Cardiology 05/24/21 01/28/23 Joseph Berg MD [address] [place] [address] Specialist Cardiology 01/24/23 Devika Bashir NP [address] [place] [address] Cardiology 01/29/23 documented as of this encounter
--- OUTSIDE RECORDS SUMMARY | 2024-10-16 10:23 | XMS_ITS ---
Author Organization [facility] Address [address] [facility] [place] [address] Care Team Providers Care Marketing Operations Analyst Name Role Phone Gabby JENSEN, [facility] Primary Care Provider Unav ailable Black, Maria Unavailable [phone] Allergies No Known Allergies REASON FOR VISIT [...] Ordered Date Performed Result Body Sit e 65576- Debride <25 sq cm 10/08/2023 N/A Encounters Encounter Location Date Provider Diagnosis [facility] [place] [address] [place] [address] 10/08/2023 Maria Black Skin ulcer of toe [...] INSTRUCTIONS.pdf) Pending Test Test Name Order Date 07309- Debride <25 sq cm 10/08/2023 Next Appt [...] of the wound post debridement is stable (48716) Progress Notes * Deacon KEYESB:[birth year] (83 yo M)Acc No.[id number]:10/08/2023 Progress Note Patient:?Deacon Keyes Provider:?Maria Maurer DPM :1940???Age:83 Y???Sex:Male Nate e:10/08/2023 Address:[address] [place], [place] [id number] Pcp:Royal Pierre MD Subjective: * Chief Complaints: * ???Pcp- 06/25/23Open sore - Toe * HPI: ???Skin problems:?Treatments:?Topical abx.? * Medical History:? 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 * Procedure Codes:?28856 ACTIV E WOUND CARE/20 CM OR < [...] Provider:?Maria Maurer DPM Date:?2023 Generated for Ángel palomo/nOi/Chapo on:?10/16/2024 10:22 AM EDT History and Physical [...]
--- OUTSIDE RECORDS SUMMARY | 2024-10-16 10:23 | XMS_ITS | Encounter Summary ---
Author Organization [facility] Address [address] [place] [address] Care Team Providers Care Pork Cutlet Maker Name Role Phone Royal Pierre MD Primary Care Provider [phone] Chel Montilla MD Unavailable Nubia Preston PA-C Unavailable Unavailab Joseph Thompson MD Unavailable [phone] Devika Bashir NP Unavailable Unavailable [facility], Pcp Primary Care Provider Unavailabl e Encounter Details Date Type Department Care Team Description 08/08/2022 Marketing Research Intern Report Medical Records [address] [place] [address] Husam Guerra MD Social History Tobacco Use [...] on filedocumented in this encounter Care Teams Pork Cutlet Maker Relationship Specialty Start Date End Date Royal Pierre MD [address] [place] [address] 29780 PCP - General Internal Medicine 07/21/20 12/27/23 [facility], Pcp [address] [place] [address] 79172 PCP - General Internal Medicine 12/28/23 Chel Montilla MD [address] [place] [address] [phone] Specialist Cardiology 02/25/21 Nubia Preston PA-C [address] [place] [address] Cardiology 05/24/21 01/28/23 Joseph Berg MD [address] [place], [place] [phone] Specialist Cardiology 01/24/23 Devika Bashir NP [address] [place] [address] 68395 Cardiology 01/29/23 documented as of this encounter
--- OUTSIDE RECORDS SUMMARY | 2024-10-16 10:23 | XMS_ITS | Encounter Summary ---
Author Organization [facility] Address [address] [place] [address] Care Team Providers Care Equipment Detailer Name Role Phone Anthony Whittaker MD Primary Care Provider Royal Pierre MD Primary Care Provider Chel Montilla MD Unavailable Nubia Preston PA-C Unavailable Unavailab Joseph Thompson MD Unavailable [phone] Devika Bashir NP Unavailable Unavailable [facility], Pcp Primary Care Provider Unavailabl e Reason for Visit * Reason Onset Date Comments TEST RESULTS 04/21/2020 Encounter Details Date Type Department Care Team Description 04/21/2020 Telephone Adult Medicine [address] [address] Reno Marie PA-C [address] [place] [address] TEST RESULTS Social History Tobacco Use Types [...] front office no reports Request sent to [facility] for Ct report Call to [facility] to follow up, will fax to [facility] srinivas fax * Telephone Encounter - Emma Wick - 04/21/2020 10:45 AM EDT Inform patient: ANY URGENT OR ABNORMAL RESULTS WIILL RESULT IN A CALL BACK TO THE PATIENT TINO. Patient walked in. States that she has a copy of her husbands test results and is worried about cysts he has. States that she read the results . States [facility] gave her results so we should have received a copy Type of test: : Ultrasound of right knee Date test was performed: not sure of day Where was the test performed: [facility] Who ordered this test?: Reno Cynthia [...] on filedocumented in this encounter Care Teams Equipment Detailer Relationship Specialty Start Date End Date Anthony Whittaker MD [address] [place] [address] PCP - General 10/09/1995 07/20/20 Royal Pierre MD [address] [place] [address] 13794 PCP - General Internal Medicine 07/21/20 12/27/23 [facility], [place] [address] [place] [address] PCP - General Internal Medicine 12/28/23 Chel Montilla MD [address] [place] [address] 21638 Specialist Cardiology 02/25/21 Nubia Preston PA-C [address] [place] [address] 53743 Cardiology 05/24/21 01/28/23 Joseph Berg MD [address] [place] [address] 40133 Specialist Cardiology 01/24/23 Devika Bashir NP [address] [place] [address] 81939 Cardiology 01/29/23 documented as of this encounter
--- OUTSIDE RECORDS SUMMARY | 2024-10-16 10:23 | XMS_ITS | Encounter Summary ---
Author Organization [facility] Address [address] [place] [address] Care Team Providers Care Trim Machine Operator Name Role Phone Royal Pierre MD Primary Care Provider [phone] Chel Montilla MD Unavailable Nubia Preston PA-C Unavailable Unavailab Joseph Thompson MD Unavailable [phone] Devika Bashir NP Unavailable Unavailable [facility], Pcp Primary Care Provider Unavailabl e Encounter Details Date Type Department Care Team Description 05/18/2022 Conventions Assistant Report Medical Records [address] [place] [address] Jocelynn Reese NP Social History Tobacco Use [...] on filedocumented in this encounter Care Teams Trim Machine Operator Relationship Specialty Start Date End Date Royal Pierre MD [address] [place] [address] [phone] PCP - General Internal Medicine 07/21/20 12/27/23 [facility], Pcp [address] [place] [address] PCP - General Internal Medicine 12/28/23 Chel Montilla MD [address] [place] [address] [phone] Specialist Cardiology 02/25/21 Nubia Preston PA-C [address] [place] [address] Cardiology 05/24/21 01/28/23 Joseph Berg MD [address] [place], [place] [phone] Specialist Cardiology 01/24/23 Devika Bashir NP [address] [place] [address] Cardiology 01/29/23 documented as of this encounter
--- OUTSIDE RECORDS SUMMARY | 2024-10-16 10:23 | XMS_ITS | Encounter Summary ---
Author Organization [facility] Address [address] [place] [address] Care Team Providers Care Photographs Curator Name Role Phone Anthony Whittaker MD Primary Care Provider [phone] Royal Pierre MD Primary Care Provider [phone] Chel Montilla MD Unavailable Nubia Preston PA-C Unavailable Unavailab Joseph Thompson MD Unavailable [phone] Devika Bashir NP Unavailable Unavailable [facility], Pcp Primary Care Provider Unavailabl e Reason for Visit * Reason Onset Date Comments Faxed Refill 03/03/2020 Encounter Details Date Type Department Care Team Description 03/03/2020 Refill Adult Medicine [address] [address] Anthony Whittaker MD [address] [place] [address] Faxed Refill Social History Tobacco Use Types [...] / Plan: [place] / Product Type: MEDICARE [id number] documented in this encounter Plan of Treatment Not on file documented as of this encounter Visit Diagnoses Not on filedocumented in this encounter Care Teams Photographs Curator Relationship Specialty Start Date End Date Anthony Whittaker MD [address] [place] [address] PCP - General 10/09/1995 07/20/20 Royal Pierre MD [address] [place] [address] 24925 PCP - General Internal Medicine 07/21/20 12/27/23 [facility], [place] [phone] PCP - General Internal Medicine 12/28/23 Chel Montilla MD [address] [place] [address] 14562 Specialist Cardiology 02/25/21 Nubia Preston PA-C [address] [place] [address] Cardiology 05/24/21 01/28/23 Joseph Berg MD [address] [place] [address] Specialist Cardiology 01/24/23 Devika Bashir NP [address] [place] [address] Cardiology 01/29/23 documented as of this encounter
--- OUTSIDE RECORDS SUMMARY | 2024-10-16 10:23 | XMS_ITS | Encounter Summary ---
Author Organization [facility] Address [address] [place] [address] Care Team Providers Care Applicator Sprayer Name Role Phone Royal Pierre MD Primary Care Provider [phone] Chel Montilla MD Unavailable Nubia Preston PA-C Unavailable Unavailab Joseph Thompson MD Unavailable [phone] Devika Bashir NP Unavailable Unavailable [facility], Pcp Primary Care Provider Unavailabl e Reason for Visit * Reason Comments E-prescribe Rx Request Encounter Details Date Type Department Care Team Description 08/28/2021 Refill Adult Medicine [address] [phone] Raya Guillen NP E-prescribe Rx Request Social [...] on filedocumented in this encounter Care Teams Applicator Sprayer Relationship Specialty Start Date End Date Royal Pierre MD [address] [place] [address] PCP - General Internal Medicine 07/21/20 12/27/23 [facility], Pcp [address] [place] [address] PCP - General Internal Medicine 12/28/23 Chel Montilla MD [address] [place] [address] Specialist Cardiology 02/25/21 Nubia Preston PA-C [address] [place] [address] Cardiology 05/24/21 01/28/23 Joseph Berg MD [address] [place] [address] Specialist Cardiology 01/24/23 Devika Bashir NP [address] [place] [address] Cardiology 01/29/23 documented as of this encounter
--- OUTSIDE RECORDS SUMMARY | 2024-10-16 10:23 | XMS_ITS | Encounter Summary ---
Author Organization [facility] Address [address] [place] [address] Care Team Providers Care Mice Raiser Name Role Phone Royal Pierre MD Primary Care Provider Chel Montilla MD Unavailable Nubia Preston PA-C Unavailable Unavailab Joseph Thompson MD Unavailable [phone] Devika Bashir NP Unavailable Unavailable [facility], Pcp Primary Care Provider Unavailabl e Reason for Visit * Reason Onset Date Comments hospital follow up 12/08/2021 Encounter Details Date Type Department Care Team Description 12/08/2021 Telephone Adult Medicine [address] [phone] Royla Pierre MD [address] [place] [address] [phone] hospital follow up Social History Tobacco Use [...] on filedocumented in this encounter Care Teams Mice Raiser Relationship Specialty Start Date End Date Royal Pierre MD [address] [place] [address] PCP - General Internal Medicine 07/21/20 12/27/23 [facility], Pcp [address] [place] [address] PCP - General Internal Medicine 12/28/23 Chel Montilla MD [address] [place] [address] Specialist Cardiology 02/25/21 Nubia Preston PA-C [address] [place] [address] 19481 Cardiology 05/24/21 01/28/23 Joseph Berg MD [address] [place] [address] Specialist Cardiology 01/24/23 Devika Bashir NP [address] [place] [address] Cardiology 01/29/23 documented as of this encounter
--- OUTSIDE RECORDS SUMMARY | 2024-10-16 10:23 | XMS_ITS | Encounter Summary ---
Author Organization [facility] Address [address] [place] [address] Care Team Providers Care Harbor Pilot Name Role Phone Royal Pierre MD Primary Care Provider [phone] Chel Montilla MD Unavailable Joseph Berg MD Unavailable [phone] Devika Bashir CABBAGE SALTER Unavailable Unavailable [facility], Pcp Primary Care Provider Unavailabl e Encounter Details Date Type Department Care Team Description 12/12/2023 Crop Farmers Report Medical Records [address] [place] [address] Leila Merida MD Social History Tobacco Use [...] on filedocumented in this encounter Care Teams Harbor Pilot Relationship Specialty Start Date End Date Royal Pierre MD [address] [place] [address] [phone] PCP - General Internal Medicine 07/21/20 12/27/23 [facility], Pcp [address] [place] [address] PCP - General Internal Medicine 12/28/23 Chel Montilla MD [address] [place] [address] [phone] Specialist Cardiology 02/25/21 Joseph Berg MD [address] [place] [address]697 Specialist Cardiology 01/24/23 Devika Bashir NP [address] [place] [address] Cardiology 01/29/23 documented as of this encounter
--- OUTSIDE RECORDS SUMMARY | 2024-10-16 10:23 | XMS_ITS | Clinical Summary ---
Author Organization [facility] Address [address] [place] [address] Care Team Providers Care Bearing Press Machine Operator Name Role Phone Chel Montilla MD Unavailable Joseph Berg MD Unavailable [phone] Devika Bashir NP Unavailable Unavailable Community, [...] as frequent [place]. Prostate cancer 03/25/2021 Overview: [facility] Urology service with Dr. Guerra- bicalutamide initiated 03/11/21, radiation treatment at [facility] Ischemic cardiomyopathy 01/28/2021 Last Assessment & Plan: [...] & Plan: Excellent lipid profile CAD ANT [place] 1990 V FIB EF 35% 08/24/2005 Overview: Exercise nuclear stress test - 10/25 - EF 61%; no reversible defects - sees dr. Smith at [facility] Last Assessment & Plan: Stable coronary disease [...] (2022-08 4 season) 2024 04/17/2023, 09/13/2020, 08/13/2020 DEPRESSION SCREEN 05/14/2024 05/14/2023 (Co mpleted), 05/14/2023, 04/03/2022, Additional history exists FALL RISK ASSESSMENT 05/14/2024 05/14/2023 (Completed), 04/03/2022, 04/03/2022, Additional history exists BMI CHECK/ADVISE 07/16/2024 06/28/2023, , 04/03/2022, Additional history exists INFLUENZA (Season Ended) 2025 023, 04/17/2023, 04/03/2022, Additional history exists DTAP/TDAP/TD (2 - Td or Tdap) 06/02/2025 06/02/2015, 02/23/2005 PNEUMOCOCCAL VACCINE Completed 12/01/2014, 06/14/20 06 SHINGLES VACCINE Discontinued 06/15/2020, , 04/28/2010 Care Teams Bearing Press Machine Operator Relationship Specialty Start Date End Date Community, Pcp PCP - General Internal Medicine 12/28/23 Chel Montilla MD Specialist Cardiology 02/25/21 Joseph Berg MD Specialist Cardiology 01/24/23 Devika Bashir NP Cardiology 01/29/23
--- OUTSIDE RECORDS SUMMARY | 2024-10-16 10:23 | XMS_ITS | Encounter Summary ---
Author Organization [facility] Address [address] [place] [address] Care Team Providers Care Immigration Officer Name Role Phone Royal Pierre MD Primary Care Provider [phone] Chel Montilla MD Unavailable Nubia Preston PA-C Unavailable Unavailab Joseph Thompson MD Unavailable [phone] Devika Bashir NP Unavailable Unavailable [facility], Pcp Primary Care Provider Unavailabl e Encounter Details Date Type Department Care Team Description 01/20/2022 Hospital Medical Records [address] [place] [address] [facility] Social History Tobacco Use [...] on filedocumented in this encounter Care Teams Immigration Officer Relationship Specialty Start Date End Date Royal Pierre MD [address] [place] [address] [phone] PCP - General Internal Medicine 07/21/20 12/27/23 On License [facility], Pcp [address] [place] [address] PCP - General Internal Medicine 12/28/23 Chel Montilla MD [address] [place] [address] Specialist Cardiology 02/25/21 Nubia Preston PA-C [address] [place] [address] Cardiology 05/24/21 01/28/23 Joseph Berg MD [address] [place] [address] Specialist Cardiology 01/24/23 Devika Bashir NP [address] [place] [address] Cardiology 01/29/23 documented as of this encounter
--- OUTSIDE RECORDS SUMMARY | 2024-10-16 10:23 | XMS_ITS | Encounter Summary ---
Author Organization [facility] Address [address] [place] [address] Care Team Providers Care Math Interventionist Name Role Phone Anthony Whittaker MD Primary Care Provider [phone] Royal Pierre MD Primary Care Provider [phone] Chel Montilla MD Unavailable Nubia Preston PA-C Unavailable Unavailab Joseph Thompson MD Unavailable [phone] Devika Bashir NP Unavailable Unavailable [facility], Pcp Primary Care Provider Unavailabl e Encounter Details Date Type Department Care Team Description 11/11/2011 Hospital Medical Records [address] [place] [address] Jase Sandra MD Social History Tobacco Use [...] on filedocumented in this encounter Care Teams Math Interventionist Relationship Specialty Start Date End Date Anthony Whittaker MD [address] [place] [address] PCP - General 10/09/1995 07/20/20 Royal Pierre MD [address] [place] [address]20 PCP - General Internal Medicine 07/21/20 12/27/23 [facility], Pcp [address] [place] [address] PCP - General Internal Medicine 12/28/23 Chel Montilla MD [address] [place] [address] Specialist Cardiology 02/25/21 Nubia Preston PA-C [address] [place] [address] Cardiology 05/24/21 01/28/23 Joseph Berg MD [address] [place] [address] Specialist Cardiology 01/24/23 Devika Bashir NP [address] [place] [address] Cardiology 01/29/23 documented as of this encounter
--- OUTSIDE RECORDS SUMMARY | 2024-10-16 10:23 | XMS_ITS | Encounter Summary ---
Author Organization [facility] Address [address] [place] [address] Care Team Providers Care Crusher Tender Name Role Phone Anthony Whittaker MD Primary Care Provider Royal Pierre MD Primary Care Provider [phone] Chel Montilla MD Unavailable Nubia Preston PA-C Unavailable Unavailab Joseph Thompson MD Unavailable [phone] Devika Bashir NP Unavailable [facility]available [facility], Pcp Primary Care Provider Unavailabl e Encounter Details Date Type Department Care Team Description 12/18/2019 Fulling Mill Operator Report Medical Records [address] [place] [address] Husam Guerra MD Social History Tobacco Use [...] on filedocumented in this encounter Care Teams Crusher Tender Relationship Specialty Start Date End Date Anthony Whittaker MD [address] [place] [address] PCP - General 10/09/1995 07/20/20 Royal Pierre MD [address] [place] [address] [phone] PCP - General Internal Medicine 07/21/20 12/27/23 [facility], Pcp [address] [place] [address] 8[address]28 PCP - General Internal Medicine 12/28/23 Chel Montilla MD [address] [place] [address] Specialist Cardiology 02/25/21 Nubia Preston PA-C [address] [place] [address]38 Cardiology 05/24/21 01/28/23 Joseph Berg MD [address] [place] [address] Specialist Cardiology 01/24/23 Devika Bashir NP [address] [place] [address] Cardiology 01/29/23 documented as of this encounter
--- OUTSIDE RECORDS SUMMARY | 2024-10-16 10:23 | XMS_ITS | Encounter Summary ---
Author Organization [facility] Address [address] [place] [address] Care Team Providers Care Horse Racetrack Manager Name Role Phone Royal Pierre MD Primary Care Provider [phone] Chel Montilla MD Unavailable Nubia Preston PA-C Unavailable Unavailab Joseph Thompson MD Unavailable [phone] Devika Bashir NP Unavailable Unavailable [facility], Pcp Primary Care Provider Unavailabl e Encounter Details Date Type Department Care Team Description 12/04/2022 Shop Repairer Report Medical Records [address] [place] [address] Jocelynn Reese NP Social History Tobacco Use [...] filedocumented in this encounter Care Teams Horse Racetrack Manager Relationship Specialty Start Date End Date Royal Pierre MD [address] [place] [address] [phone] PCP - General Internal Medicine 07/21/20 12/27/23 [facility], Pcp [address] [place] [address]390 PCP - General Internal Medicine 12/28/23 Chel Montilla MD [address] [place] [address] [phone] Specialist Cardiology 02/25/21 Nubia Preston PA-C [address] [place] [address] Cardiology 05/24/21 01/28/23 Joseph Berg MD [address] [place], [place] [phone] Specialist Cardiology 01/24/23 Devika Bashir NP [address] [place] [address] Cardiology 01/29/23 documented as of this encounter
--- OUTSIDE RECORDS SUMMARY | 2024-10-16 10:23 | XMS_ITS | Patient Health Record ---
Author Organization [facility] Address [address] [facility] [place] [address] Care Team Providers Care It Consulting Manager Name Role Phone Gabby JENSEN, Richardmd Ben Primary Care Provider Unav ailable Black, Maria Unavailable [phone] Allergies No Known Allergies Reason For Referral [...] Status Risk Notes Problem Ulcer of toe (800005547 ) Non-pressure chronic ulcer of other part of left foot limited to breakdown of skin (L97.521) Active confirmed Problem Ulcer of toe (146698616 ) Non-pressure chronic ulcer of other part of right foot limited to breakdown of skin (L97.511) Active confirmed Problem Ulcer of toe of left foot (disorder) (487343804 66019723) Skin ulcer of toe of left foot, limited to breakdown of skin (L97.521) Active confirmed Nonapplicable Plan Of Treatment Pending Test Test Name Order Date [id number] NAIL, 6 OR MORE 01/25/2023 [id number] NAIL, 6 OR MORE 09/20/2023 [id number] Plate 09/20/2023 [id number] Plate 02/13/2022 77916-Pemuemkm Plate 01/11/2023 [id number] Plate Each Additional 07/2021 62360- Debride <25 sq cm 01/25/2023 27739- Debride <25 sq cm 03/02/2022 45206- Debride <25 sq cm 10/08/2023 Insurance Providers Payer Name Payer Address Payer Phone Subscriber Number Group Number Insured Name Patient Relationship to Insured Coverage Start Date Coverage End Date Medicare National [employer] [address] [place] [address] [id number] Deacon Keyes Self - patient is the insured [facility] [address] [place] [id number] [phone] [id number] Deacon Keyes Self - patient is the insured Medical (General) History Medical History History ICD Code Cancer Gout Measles Chicken pox acute Stroke Surgical History Surgery Date(Month/Year) pacemaker 2021 Hospitalization History Reason Date(Month/Year) [facility]- Acute Stroke 07/07
--- OUTSIDE RECORDS SUMMARY | 2024-10-16 10:23 | XMS_ITS | Encounter Summary ---
Author Organization [facility] Address [address] [place] [address] Care Team Providers Care Plastics Spreading Machine Operator Name Role Phone Royal Pierre MD Primary Care Provider [phone] Chel Montilla MD Unavailable Nubia Preston PA-C Unavailable Unavailab Joseph Thompson MD Unavailable [phone] Devika Bashir NP Unavailable Unavailable [facility], Pcp Primary Care Provider Unavailabl e Reason for Visit * Reason Comments Remote Device Check ALERT: 10 seconds [place] Encounter Details Date Type Department Care Team Description 01/15/2023 Remote Device Check Cardio PVC POC 154 [address] [facility] [address] [place], [place] [phone] Joseph Berg MD [address] [place] [address] [phone] Social History Tobacco Use Types Packs/Day Years [...] on filedocumented in this encounter Care Teams Plastics Spreading Machine Operator Relationship Specialty Start Date End Date Royal Pierre MD [address] [place] [address] PCP - General Internal Medicine 07/21/20 12/27/23 [facility], Pcp [address] [place] [address] PCP - General Internal Medicine 12/28/23 Chel Montilla MD [address] [place] [address] Specialist Cardiology 02/25/21 Nubia Preston PA-C [address] [place] [address] Cardiology 05/24/21 01/28/23 Joseph Berg MD [address] [place] [address] Specialist Cardiology 01/24/23 Devika Bashir NP [address] [place], [place] [phone] Cardiology 01/29/23 documented as of this encounter
--- OUTSIDE RECORDS SUMMARY | 2024-10-16 10:23 | XMS_ITS | Encounter Summary ---
Author Organization [facility] Address [address] [place] [address] Care Team Providers Care Creative Lead Name Role Phone Anthony Whittaker MD Primary Care Provider [phone] Royal Pierre MD Primary Care Provider [phone] Chel Montilla MD Unavailable Nubia Preston PA-C Unavailable Unavailab Joseph Thompson MD Unavailable [phone] Deivka Bashir NP Unavailable Unavailable [facility], Pcp Primary Care Provider Unavailabl e Encounter Details Date Type Department Care Team Description 05/16/2019 International Representative Report Medical Records [address] [place] [address] [address] [facility] Social History Tobacco Use Types [...] on filedocumented in this encounter Care Teams Creative Lead Relationship Specialty Start Date End Date Anthony Whittaker MD [address] [place] [address] [phone] PCP - General 10/09/1995 07/20/20 Royal Pierre MD [address] [place] [address] PCP - General Internal Medicine 07/21/20 12/27/23 [facility], Pcp [address] [place] [address] PCP - General Internal Medicine 12/28/23 Chel Montilla MD [address] [place] [address] Specialist Cardiology 02/25/21 Nubia Preston PA-C [address] [place] [address] Cardiology 05/24/21 01/28/23 Joseph Berg MD [address] [place] [address] Specialist Cardiology 01/24/23 Devika Bashir NP [address] [place] [address] Cardiology 01/29/23 documented as of this encounter
--- OUTSIDE RECORDS SUMMARY | 2024-10-16 10:23 | XMS_ITS | Encounter Summary ---
Author Organization [facility] Address [address] [place] [address] Care Team Providers Care Television Production Assistant Name Role Phone Anthony Whittaker MD Primary Care Provider [phone] Royal Pierre MD Primary Care Provider [phone] Chel Montilla MD Unavailable Nubia Preston PA-C Unavailable Unavailab Joseph Thompson MD Unavailable [phone] Devika Bashir NP Unavailable Unavailable [facility], Pcp Primary Care Provider Unavailabl e Encounter Details Date Type Department Care Team Description 01/24/2016 Upholstery Sewer Report Medical Records [address] [place] [address]87 Chel Montilla MD [address] [place] [address] [phone] Social History Tobacco Use Types Packs/Day Years [...] on filedocumented in this encounter Care Teams Television Production Assistant Relationship Specialty Start Date End Date Anthony Whittaker MD [address] [place] [address] [phone] PCP - General 10/09/1995 07/20/20 Royal Pierre MD [address] [place] [address] [phone] PCP - General Internal Medicine 07/21/20 12/27/23 [facility], Pcp [address] [place] [address] PCP - General Internal Medicine 12/28/23 Chel Montilla MD [address] [place] [address] Specialist Cardiology 02/25/21 Nubia Preston PA-C [address] [place] [address] 34561 Cardiology 05/24/21 01/28/23 Joseph Berg MD [address] [place] [address] 05865 Specialist Cardiology 01/24/23 Devika Bashir NP [address] [place] [address] 90192 Cardiology 01/29/23 documented as of this encounter
== END 2024-10-16 10:57 | disposition home or self-care (01) ==
LOC: HO.HUSH 09:49
PROVIDERS: PCP Internal Medicine; Visit Provider Urology
DX: C61 Malignant neoplasm of prostate (principal)
CPT/HCPCS: 99213; G2211

== ENCOUNTER → 2024-10-16 09:49 | Outpatient (BNVA) | payer MEDICARE, OTHER, SELFPAY | PROVIDERS: PCP Internal Medicine; Visit Provider Urology ==

== ENCOUNTER 2024-10-22 13:21 | Outpatient (AMB) | payer MEDICARE, OTHER, SELFPAY ==
--- NOTE | 2024-10-22 13:25 | A.OFFPC_ITS ---
Vital Signs 10/22/24 13:26 Height 5 ft 6 in Weight 164 lb 2 oz BMI 26.5 BP 110/60 Blood Pressure Location Lt brachial Position Sitting Pulse 80 Pulse Source Pulse Oximeter Temp 96.9 F Temp Source Temporal Artery Scan Pulse Oximetry (%) 95 Oxygen Delivery Method Room Air Intake Visit Reasons: lower back pain Intake Note: Patient is here to follow up on Lower back pain. Granite Countertop Installer Required: No Supervisor Steno Pool: Not Required per policy Accompanied by: Self / Same As Patient Allergies No Known Allergies [No Known Allergies*] Allergy (Verified 10/22/24 13:34) Medication List - Last Reconciled 10/22/24 by Kimi Santos PA-C alendronate 70 mg PO QWEEK allopurinol 100 mg PO DAILY aspirin 81 mg PO DAILY atorvastatin 40 mg PO BEDTIME cholecalciferol (vitamin D3) 25 mcg PO DAILY rwtcrqoqhyd-usgffkykw-mpiokqah 200-62.5-25 mcg (Trelegy Ellipta) 1 inh inhalation DAILY 30 days guaifenesin ER (Mucinex) 1,200 mg PO BID montelukast (Singulair) 10 mg PO BEDTIME 30 days sacubitril-valsartan 49-51 mg (Entresto) 1 tab PO BID 90 days tamsulosin 0.4 mg PO BEDTIME 90 days Tobacco use date assessed: 10/22/24 Fall risk assessment: No Falls in past year Last assessed Fall Risk: 10/22/24 Dental Screening Dental Screen Date: 07/25/24 HPI lower back pain HPI Details 84-year-old male with past medical histo ry COPD, polymyalgia rheumatica, history of prostate cancer, history of CVA, hypertension, hypercholesterolemia, impaired glucose tolerance last seen by Dr. Merida 07/2024 coming in for acute problem. Presenting with musculoskeletal pain. Pain onset was during activity related to bed making potentially due to muscle strain. Initially increased in severity, described as muscular, with improvement noted over days. Pain management includes Tylenol and heating pads, which alleviate symptoms. No neurological deficits such as radicular pain, numbness, or tingling were reported. [facility] Medical History Pulmonary fibrosis Colonic mass Allergies Dental abscess Dysphagia Elevated PSA Abrasion Bursitis of left shoulder Joint pain Effusion, left knee Prostate nodule Microscopic hematuria Bladder outlet obstruction Pes anserinus bursitis of right knee Effusion, right knee Ventricular tachycardia Ischemic cardiomyopathy Atherosclerotic cardiovascular disease Cardiomyopathy Pacemaker ILD (interstitial lung disease) Pulmonary nodules COPD (chronic obstructive pulmonary disease) Bursitis of right shoulder Medial meniscus tear Osteoarthritis of right knee Surgical History History of carpal tunnel release History of cholecystectomy History of tonsillectomy History of colonoscopy Family History Father No problems noted. Mother No problems noted. Son No problems noted. Social History Household Members: Spouse Housing: House Are you a primary out of school hours care worker to a significant other at home: No Do you presently have visiting nurse or other home services: No Alcohol intake: current Alcohol intake frequency: does not drink Alcohol type: beer Comment: once Q 3-6 month glass of wine Patient Tobacco Use Status: Former Tobacco user Tobacco use type: Cigarette Years Smoked: 30 years e-Cigarette/Vaping Use: Never Used Second Hand Smoke Exposure: Yes Advance Directives Date on File: 06/24/23 service: No Current occupational status: retired 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 Cognitive needs: No Hearing needs: Yes Vision needs: Yes Questionnaire Thrive Questionnaire Date Thrive assessed: 07/25/24 CORINNE-7 AMB Questionnaire CORINNE-7 Date CORINNE - 7 assessed: 07/25/24 Source: Developed by Drs. Deacon Rod, Paulette Rose, Aurelio Lopez and colleagues, with an educational dell from [employer]. Review of Systems Const Denies body aches, Denies chills and Denies fever(s) Eyes Reports no additional complaints ENT Denies dizziness Card Denies chest pain and Denies dyspnea Resp Denies cough and Denies dyspnea Reports no additional complaints Musc Details: low back pain Denies abnormal gait Skin/Breast Reports system reviewed and no additional complaints, except as documented Neuro Denies abnormal gait and Denies dizziness Psych Reports no additional complaints Physical exam (Primary Care) Vital Signs: Last Vital Signs Temp 96.9 F 10/22/24 13:26 Pulse 80 10/22/24 13:26 BP 110/60 10/22/24 13:26 Pulse Ox 95 10/22/24 13:26 Oxygen Delivery Method Room Air 10/22/24 13:26 BMI result Body Mass Index 26.5 Tobacco/Smoking Status: Tobacco use Status Tobacco use date assessed 10/22/24 10/22/24 13:31 Patient Tobacco Use Status Former Tobacco user 10/22/24 13:26 Tobacco use type Cigarette 10/22/24 13:26 e-Cigarette/Vaping Use Never Used 10/22/24 13:26 Thrive Assessment: Date of Thrive Assessment Date Thrive assessed 07/25/24 10/22/24 13:26 Const General: cooperative, healthy appearing, comfortable and no acute distress Orientation/consciousness: patient oriented x3 HENMT Head: Yes normocephalic Ears: hearing grossly normal bilaterally General nose exam: Normal external nose present Eyes General: appearance normal, both eyes and all related structures Conjunctivae: conjunctivae normal Neck Neck: Yes full ROM and Yes no lymphadenopathy Resp Effort & Inspection: normal respiratory effort Auscultation: clear to auscultation bilaterally, no crackles, no rales, no rhonchi and no wheezes Cardio Rate: regular rate Rhythm: regular rhythm Back/Spine/Pelvis Other: no pain to palpation of spine or paraspinal muscles Skin General skin exam: no rashes or lesions noted Neuro General: patient oriented x3 Gait exam (Neuro): Normal gait present Extrem General: Yes normal to inspection, Yes full ROM and No edema Psych Affect: normal affect Attitude: cooperative Insight: Good insight present (Psych) Judgement: Good judgement present (Psych) Coding Level of Care Code Est Pt Level 3 (95603) Diagnoses Hypertension I10 Back pain M54.9 Assessment & Plan Assessment & Plan (1) Hypertension: Code(s): I10 - Essential (primary) hypertension Category: Medical Plan: Continue on current blood pressure medication. Avoid salt intake and encourage healthy diet and regular exercise. (2) Back pain: Code(s): M54.9 - Dorsalgia, unspecified Category: Medical Plan: The patient's musculoskeletal pain is consistent with a muscle strain, for which I recommend continuing the current analgesic regimen with Tylenol and utilizing heating pads to aid recovery. Gentle stretching is beneficial for muscle relaxation. The patient is advised to maintain his level of activity while avoiding heavy lifting for the time being. If symptoms exacerbate, further diagnostic testing like imaging could be warranted.
[2024-10-22 13:26] VITALS: BP 110/60; PULSE 80; TEMP 36.1; O2SAT 95; BMI 26.5
--- OUTSIDE RECORDS SUMMARY | 2024-10-22 15:26 | XMS_ITS | Encounter Summary ---
Author Organization [facility] Address [address] [place] [address] Care Team Providers Care Pharmacy Cashier Name Role Phone Anthony Whittaker MD Primary Care Provider [phone] Royal Pierre MD Primary Care Provider [phone] Chel Montilla MD Unavailable Nubia Preston PA-C Unavailable Unavailab Joseph Thompson MD Unavailable [phone] Devika Bashir NP Unavailable Unavailable [facility], Pcp Primary Care Provider Unavailabl e Encounter Details Date Type Department Care Team Description 10/02/2014 Structural Engineering Project Manager Report Medical Records [address] [place] [address] [id number] Shaunna Fry MD Social History Tobacco Use [...] on filedocumented in this encounter Care Teams Pharmacy Cashier Relationship Specialty Start Date End Date Anthony Whittaker MD [address] [place] [address]20 PCP - General 10/09/1995 07/20/20 Royal Pierre MD [address] [place] [address] [phone] PCP - General Internal Medicine 07/21/20 12/27/23 [facility], Pcp [address] [place] [address] PCP - General Internal Medicine 12/28/23 Chel Montilla MD [address] [place] [address] Specialist Cardiology 02/25/21 Nubia Preston PA-C [address] [place] [address] 37301 Cardiology 05/24/21 01/28/23 Joseph Berg MD [address] [place] [address] Specialist Cardiology 01/24/23 Devika Bashir NP [address] [place] [address] Cardiology 01/29/23 documented as of this encounter
--- OUTSIDE RECORDS SUMMARY | 2024-10-22 15:26 | XMS_ITS | Encounter Summary ---
Author Organization [facility] Address [address] [place] [address] Care Team Providers Care Microarray Analyst Name Role Phone Anthony Whittaker MD Primary Care Provider [phone] Royal Pierre MD Primary Care Provider [phone] Chel Montilla MD Unavailable Nubia Preston PA-C Unavailable Unavailab Joseph Thompson MD Unavailable [phone] Devika Bashir NP Unavailable Unavailable [facility], Pcp Primary Care Provider Unavailabl e Encounter Details Date Type Department Care Team Description 03/17/2014 Addressing Machine Operator Report Medical Records [address] [place] [address] 69181 Shaunna Fry MD Social History Tobacco Use [...] on filedocumented in this encounter Care Teams Microarray Analyst Relationship Specialty Start Date End Date Anthony Whittaker MD [address] [place] [address]20 PCP - General 10/09/1995 07/20/20 Royal Pierre MD [address] [place] [address] [phone] PCP - General Internal Medicine 07/21/20 12/27/23 [facility], Pcp [address] [place] [address] PCP - General Internal Medicine 12/28/23 Chel Montilla MD [address] [place] [address] Specialist Cardiology 02/25/21 Nubia Preston PA-C [address] [place] [address] 50425 Cardiology 05/24/21 01/28/23 Joseph Berg MD [address] [place] [address] Specialist Cardiology 01/24/23 Devika Bashir NP [address] [place] [address] Cardiology 01/29/23 documented as of this encounter
--- OUTSIDE RECORDS SUMMARY | 2024-10-22 15:26 | XMS_ITS | Encounter Summary ---
Author Organization [facility] Address [address] [place] [address] Care Team Providers Care Lobster Catcher Name Role Phone Anthony Whittaker MD Primary Care Provider Royal Pierre MD Primary Care Provider Chel Montilla MD Unavailable Nubia Preston PA-C Unavailable Unavailab Joseph Thompson MD Unavailable [phone] Devika Bashir NP Unavailable [facility]cp Primary Care Provider Unavailabl e Encounter Details Date Type Department Care Team Description 04/13/1999 [facility] - [address] [address] Lee Gil MD UNSPECIFIED CHEST PAIN Social [...] unspecified documented in this encounter Care Teams Lobster Catcher Relationship Specialty Start Date End Date Anthony Whittaker MD [address] [place] [address] 6[address]34 PCP - General 10/09/1995 07/20/20 Royal Pierre MD [address] [place] [address] 79132 PCP - General Internal Medicine 07/21/20 12/27/23 [facility], [address] [address] PCP - General Internal Medicine 12/28/23 Chel Montilla MD [address] [place] [address] Specialist Cardiology 02/25/21 Nubia Preston PA-C [address] [place] [address] 69337 Cardiology 05/24/21 01/28/23 Joseph Berg MD [address] [place] [address] Specialist Cardiology 01/24/23 Devika Bashir NP [address] [place] [address] 19844 Cardiology 01/29/23 documented as of this encounter
--- OUTSIDE RECORDS SUMMARY | 2024-10-22 15:26 | XMS_ITS | Encounter Summary ---
Author Organization [facility] Address [address] [place] [address] Care Team Providers Care Noc Technician Name Role Phone Anthony Whittaker MD Primary Care Provider [phone] Royal Pierre MD Primary Care Provider [phone] Chel Montilla MD Unavailable Nubia Preston PA-C Unavailable Unavailab Joseph Thompson MD Unavailable [phone] Devika Bashir NP Unavailable Unavailable [facility], Pcp Primary Care Provider Unavailabl e Encounter Details Date Type Department Care Team Description 05/13/2018 Automatic Lathe Operator Report Medical Records [address] [place] [address] 66864 Juice Aguilera PA-C [address] [place] [address] 06041 Social History Tobacco Use Types Packs/Day Years [...] on filedocumented in this encounter Care Teams Noc Technician Relationship Specialty Start Date End Date Anthony Whittaker MD [address] [place] [address] 99175 PCP - General 10/09/1995 07/20/20 Royal Pierre MD [address] [place] [address] PCP - General Internal Medicine 07/21/20 12/27/23 [facility], Pcp [address] [place] [address] PCP - General Internal Medicine 12/28/23 Chel Montilla MD [address] [place] [address] Specialist Cardiology 02/25/21 Nubia Preston PA-C [address] [place] [address] Cardiology 05/24/21 01/28/23 Joseph Berg MD [address] [place] [address] Specialist Cardiology 01/24/23 Devika Bashir NP [address] [place] [address] Cardiology 01/29/23 documented as of this encounter
--- OUTSIDE RECORDS SUMMARY | 2024-10-22 15:26 | XMS_ITS | Encounter Summary ---
Author Organization [facility] Address [address] [place] [address] Care Team Providers Care Under Presser Name Role Phone Royal Pierre MD Primary Care Provider Chel Montilla MD Unavailable Nubia Preston PA-C Unavailable Unavailab Joseph Thompson MD Unavailable [phone] Devika Bashir NP Unavailable Unavailable [facility], Pcp Primary Care Provider Unavailabl e Encounter Details Date Type Department Care Team Description 05/26/2021 Nurse Practitioner Hospitalist Report Medical Records [address] [place] [address] 18737 Ken Allen MD Social History Tobacco Use [...] on filedocumented in this encounter Care Teams Under Presser Relationship Specialty Start Date End Date Royal Pierre MD [address] [place] [address] [phone] PCP - General Internal Medicine 07/21/20 12/27/23 [facility], Pcp [address] [place] [address] 89092 PCP - General Internal Medicine 12/28/23 Chel Montilla MD [address] [place] [address] [phone] Specialist Cardiology 02/25/21 Nubia Preston PA-C [address] [place] [address] 16470 Cardiology 05/24/21 01/28/23 Joseph Berg MD [address] [place], [place] [phone] Specialist Cardiology 01/24/23 Devika Bashir NP [address] [place] [address] 03711 Cardiology 01/29/23 documented as of this encounter
--- OUTSIDE RECORDS SUMMARY | 2024-10-22 15:26 | XMS_ITS | Encounter Summary ---
Author Organization [facility] Address [address] [place] [address] Care Team Providers Care Grain Operations Manager Name Role Phone Anthony Whittaker MD Primary Care Provider [phone] Royal Pierre MD Primary Care Provider [phone] Chel Montilla MD Unavailable Nubia Preston PA-C Unavailable Unavailab Joseph Thompson MD Unavailable [phone] Devika Bashir NP Unavailable Unavailable [facility], Pcp Primary Care Provider Unavailabl e Encounter Details Date Type Department Care Team Description 04/29/2018 Facility Coordinator Report Medical Records [address] [place] [address] Chel Montilla MD [address] [place] [address] [phone] Social History Tobacco Use Types Packs/Day Years [...] on filedocumented in this encounter Care Teams Grain Operations Manager Relationship Specialty Start Date End Date Anthony Whittaker MD [address] [place] [address] [phone] PCP - General 10/09/1995 07/20/20 Royal Pierre MD [address] [place] [address]259 PCP - General Internal Medicine 07/21/20 12/27/23 [facility], Pcp [address] [place] [address] PCP - General Internal Medicine 12/28/23 Chel Montilla MD [address] [place] [address] Specialist Cardiology 02/25/21 Nubia Preston PA-C [address] [place] [address] Cardiology 05/24/21 01/28/23 Joseph Berg MD [address] [place] [address] Specialist Cardiology 01/24/23 Devika Bashir NP [address] [place], [place] [phone] Cardiology 01/29/23 documented as of this encounter
--- OUTSIDE RECORDS SUMMARY | 2024-10-22 15:26 | XMS_ITS | Encounter Summary ---
Author Organization [facility] Address [address] [place] [address] Care Team Providers Care Assembler Ping Pong Table Name Role Phone Royal Pierre MD Primary Care Provider Chel Montilla MD Unavailable Nubia Preston PA-C Unavailable Unavailab Joseph Thompson MD Unavailable [phone] Devika Bashir NP Unavailable Unavailable [facility], Pcp Primary Care Provider Unavailabl e Encounter Details Date Type Department Care Team Description 05/14/2021 Hospital Medical Records [address] [place] [address] 16222 Social History Tobacco Use Types Packs/Day Years [...] on filedocumented in this encounter Care Teams Assembler Ping Pong Table Relationship Specialty Start Date End Date Royal Pierre MD [address] [place] [address] PCP - General Internal Medicine 07/21/20 12/27/23 [facility], Pcp [address] [place] [address] PCP - General Internal Medicine 12/28/23 Chel Montilla MD [address] [place] [address] Specialist Cardiology 02/25/21 Nubia Preston PA-C [address] [place] [address] Cardiology 05/24/21 01/28/23 Joseph Berg MD [address] [place] [address] Specialist Cardiology 01/24/23 Devika Bashir NP [address] [place] [address] 80043 Cardiology 01/29/23 documented as of this encounter
--- OUTSIDE RECORDS SUMMARY | 2024-10-22 15:27 | XMS_ITS | Encounter Summary ---
Author Organization [facility] Address [address] [place] [address] Care Team Providers Care Optical Effects Line Up Person Name Role Phone Anthony Whittaker MD Primary Care Provider [phone] Royal Pierre MD Primary Care Provider [phone] Chel Montilla MD Unavailable Nubia Preston PA-C Unavailable Unavailab Joseph Thompson MD Unavailable [phone] Devika Bashir NP Unavailable Unavailable [facility], Pcp Primary Care Provider Unavailabl e Encounter Details Date Type Department Care Team Description 10/26/2010 Yard General Car Supervisor Report Medical Records [address] [place] [address] Lee Gil MD Social History Tobacco Use [...] on filedocumented in this encounter Care Teams Optical Effects Line Up Person Relationship Specialty Start Date End Date Anthony Whittaker MD [address] [place] [address] [phone] PCP - General 10/09/1995 07/20/20 Royal Pierre MD [address] [place] [address] [phone] PCP - General Internal Medicine 07/21/20 12/27/23 [facility], Pcp [address] [place] [address] PCP - General Internal Medicine 12/28/23 Chel Montilla MD [address] [place] [address] Specialist Cardiology 02/25/21 Nubia Preston PA-C [address] [place] [address] 78172 Cardiology 05/24/21 01/28/23 Joseph Berg MD [address] [place] [address] Specialist Cardiology 01/24/23 Devika Bashir NP [address] [place] [address] Cardiology 01/29/23 documented as of this encounter
--- OUTSIDE RECORDS SUMMARY | 2024-10-22 15:27 | XMS_ITS | Encounter Summary ---
Author Organization [facility] Address [address] [place] [address] Care Team Providers Care Revenue Enforcement Agent Name Role Phone Anthony Whittaker MD Primary Care Provider [phone] Royal Pierre MD Primary Care Provider [phone] Chel Montilla MD Unavailable Nubia Preston PA-C Unavailable Unavailab Joseph Thompson MD Unavailable [phone] Devika Bashir NP Unavailable Unavailable [facility], Pcp Primary Care Provider Unavailabl e Encounter Details Date Type Department Care Team Description 10/04/2012 Traffic Supervisor Report Medical Records [address] [place] [address] Lee Gil MD Social History Tobacco Use [...] on filedocumented in this encounter Care Teams Revenue Enforcement Agent Relationship Specialty Start Date End Date Anthony Whittaker MD [address] [place] [address] [phone] PCP - General 10/09/1995 07/20/20 Royal Pierre MD [address] [place] [address] [phone] PCP - General Internal Medicine 07/21/20 12/27/23 [facility], Pcp [address] [place] [address] PCP - General Internal Medicine 12/28/23 Chel Montilla MD [address] [place] [address] Specialist Cardiology 02/25/21 Nubia Preston PA-C [address] [place] [address] 26179 Cardiology 05/24/21 01/28/23 Joseph Berg MD [address] [place] [address] Specialist Cardiology 01/24/23 Devika Bashir NP [address] [place] [address] Cardiology 01/29/23 documented as of this encounter
--- OUTSIDE RECORDS SUMMARY | 2024-10-22 15:27 | XMS_ITS | Encounter Summary ---
Author Organization [facility] Address [address] [place] [address] Care Team Providers Care Car Salter Name Role Phone Royal Pierre MD Primary Care Provider Chel Montilla MD Unavailable Joseph Berg MD Unavailable [phone] Devika Bashir WATERPROOF MATERIAL FOLDER Unavailable [facility] Primary Care Provider Unavailabl e Encounter Details Date Type Department Care Team Description 06/24/2023 [facility] Medical Records [address] [place] [address] [facility] Social History Tobacco Use Types [...] on filedocumented in this encounter Care Teams Car Salter Relationship Specialty Start Date End Date Royal Pierre MD [address] [place] [address]81 PCP - General Internal Medicine 07/21/20 12/27/23 [facility] Pcp [address] [place] [address] 8[address]38 PCP - General Internal Medicine 12/28/23 Chel Montilla MD [address] [place] [address] [phone] Specialist Cardiology 02/25/21 Joseph Berg MD [address] [place] [address]15 Specialist Cardiology 01/24/23 Devika Bashir NP [address] [place] [address] Cardiology 01/29/23 documented as of this encounter
--- OUTSIDE RECORDS SUMMARY | 2024-10-22 15:27 | XMS_ITS | Encounter Summary ---
Author Organization [facility] Address [address] [place] [address] Care Team Providers Care Tobacco Warehouse Manager Name Role Phone Royal Pierre MD Primary Care Provider [phone] Chel Montilla MD Unavailable Joseph Berg MD Unavailable [phone] Devika Bashir CAFE AIDE Unavailable Unavailable Formerly [facility], Pcp Primary Care Provider Unavailabl e Encounter Details Date Type Department Care Team Description 05/14/2023 Germination Testing Manager Report Medical Records [address] [place] [address] Dermatology & Laser Social History Tobacco Use Types Packs/Day Years [...] on filedocumented in this encounter Care Teams Tobacco Warehouse Manager Relationship Specialty Start Date End Date Royal Pierre MD [address] [place] [address] [phone] PCP - General Internal Medicine 07/21/20 12/27/23 [facility], Pcp [address] [place] [address] PCP - General Internal Medicine 12/28/23 Chle Montilla MD [address] [place] [address] Specialist Cardiology 02/25/21 Joseph Berg MD [address] [place] [address] Specialist Cardiology 01/24/23 Devika Bashir NP [address] [place] [address] Cardiology 01/29/23 documented as of this encounter
--- OUTSIDE RECORDS SUMMARY | 2024-10-22 15:27 | XMS_ITS | Patient Health Record ---
Author Organization [facility] Gabriele miguel [place] Address [address] [facility] [place] [address] Care Team Providers Care Residential Care Officer Name Role Phone Gabby JENSEN, Richardpa Ben Primary Care Provider Unav ailable Black, Maria Unavailable [phone] Allergies No Known Allergies Reason For Referral [...] Status Risk Notes Problem Ulcer of toe (024084947 ) Non-pressure chronic ulcer of other part of left foot limited to breakdown of skin (L97.521) Active confirmed Problem Ulcer of toe (517955775 ) Non-pressure chronic ulcer of other part of right foot limited to breakdown of skin (L97.511) Active confirmed Problem Ulcer of toe of left foot (disorder) (324132885 20151471) Skin ulcer of toe of left foot, limited to breakdown of skin (L97.521) Active confirmed Nonapplicable Plan Of Treatment Pending Test Test Name Order Date [id number] NAIL, 6 OR MORE 01/25/2023 [id number] NAIL, 6 OR MORE 09/20/2023 31072-Ngrqzvkt Plate 09/20/2023 39077-Ficbkvuz Plate 02/13/2022 90368-Gimbtnyj Plate 01/11/2023 50321-Pysjbphc Plate Each Additional 07/2021 10654- Debride <25 sq cm 01/25/2023 40045- Debride <25 sq cm 03/02/2022 58161- Debride <25 sq cm 10/08/2023 Insurance Providers Payer Name Payer Address Payer Phone Subscriber Number Group Number Insured Name Patient Relationship to Insured Coverage Start Date Coverage End Date Medicare National [employer] [address] [facility] [place] [address] [id number] Deacon Keyes Self - patient is the insured [facility] [address] [place] [id number] Deacon Keyes Self - patient is the insured Medical (General) History Medical History History ICD Code Cancer Gout Measles Chicken pox acute Stroke Surgical History Surgery Date(Month/Year) pacemaker 2021 Hospitalization History Reason Date(Month/Year) [facility]- Acute Stroke 07/07
--- OUTSIDE RECORDS SUMMARY | 2024-10-22 15:27 | XMS_ITS | Encounter Summary ---
Author Organization [facility] Address [address] [place] [address] Care Team Providers Care Pharmacy Intake Technician Name Role Phone Anthony Whittaker MD Primary Care Provider [phone] Royal Pierre MD Primary Care Provider [phone] Chel Montilla MD Unavailable Nubia Preston PA-C Unavailable Unavailab Joseph Thompson MD Unavailable [phone] Devika Bashir NP Unavailable Unavailable Formerly [facility], Pcp Primary Care Provider Unavailabl e Encounter Details Date Type Department Care Team Description 12/20/2017 Board Mixer Tender Report Medical Records [address] [place] [address] Go Ramos MD Social History Tobacco Use [...] filedocumented in this encounter Care Teams Pharmacy Intake Technician Relationship Specialty Start Date End Date Anthony Whittaker MD [address] [place] [address] [phone] PCP - General 10/09/1995 07/20/20 Royal Pierre MD [address] [place] [address] [phone] PCP - General Internal Medicine 07/21/20 12/27/23 [facility], Pcp [address] [place] [address] PCP - General Internal Medicine 12/28/23 Chel Montilla MD [address] [place] [address] Specialist Cardiology 02/25/21 Nubia Preston PA-C [address] [place] [address] 79[address] Cardiology 05/24/21 01/28/23 Joseph Berg MD [address] [place] [address] Specialist Cardiology 01/24/23 Devika Bashir NP [address] [place] [address] Cardiology 01/29/23 documented as of this encounter
--- OUTSIDE RECORDS SUMMARY | 2024-10-22 15:27 | XMS_ITS | Encounter Summary ---
Author Organization [facility] Address [address] [place] [address] Care Team Providers Care Chief Librarian Branch Name Role Phone Royal Pierre MD Primary Care Provider [phone] Chel Montilla MD Unavailable Nubia Preston PA-C Unavailable Unavailab Joseph Thompson MD Unavailable [phone] Devika Bashir NP Unavailable Unavailable Formerly [facility], Pcp Primary Care Provider Unavailabl e Encounter Details Date Type Department Care Team Description 09/15/2020 Town Marshal Report Medical Records [address] [place] [address] Edward Garcia MD Social History Tobacco Use [...] on filedocumented in this encounter Care Teams Chief Librarian Branch Relationship Specialty Start Date End Date Royal Pierre MD [address] [place] [address] [phone] PCP - General Internal Medicine 07/21/20 12/27/23 [facility]ly [facility], Pcp [address] [place] [address] PCP - General Internal Medicine 12/28/23 Chel Montilla MD [address] [place] [address] [phone] Specialist Cardiology 02/25/21 Nubia Preston PA-C [address] [place] [address] Cardiology 05/24/21 01/28/23 Joseph Berg MD [address] [place], [place] [phone] Specialist Cardiology 01/24/23 Devika Bashir NP [address] [place] [address] Cardiology 01/29/23 documented as of this encounter
--- OUTSIDE RECORDS SUMMARY | 2024-10-22 15:27 | XMS_ITS | Encounter Summary ---
Author Organization [facility] Address [address] [place] [address] Care Team Providers Care Lunchroom Attendant Name Role Phone Royal Pierre MD Primary Care Provider [phone] Chel Montilla MD Unavailable Joseph Berg MD Unavailable [phone] Devika Bashir NP Unavailable Unavailable [facility], [facility], Pcp Primary Care Provider Unavailabl e Encounter Details Date Type Department Care Team Description 05/18/2023 Hospital Medical Records [address] [place] [address] [facility] Social History Tobacco [...] on filedocumented in this encounter Care Teams Lunchroom Attendant Relationship Specialty Start Date End Date Royal Pierre MD [address] [place] [address] [phone] PCP - General Internal Medicine 07/21/20 12/27/23 [facility], [facility], Pcp [address] [place] [address] PCP - General Internal Medicine 12/28/23 Chel Montilla MD [address] [place] [address] 17987 Specialist Cardiology 02/25/21 Joseph Berg MD [address] [place] [address] 7[address]70 Specialist Cardiology 01/24/23 Devika Bashir NP [address] [place] [address] Cardiology 01/29/23 documented as of this encounter
--- OUTSIDE RECORDS SUMMARY | 2024-10-22 15:27 | XMS_ITS | Encounter Summary ---
Author Organization [facility] Address [address] [place] [address] Care Team Providers Care Welder Manufacture Name Role Phone Anthony Whittaker MD Primary Care Provider [phone] Royal Pierre MD Primary Care Provider [phone] Chel Montilla MD Unavailable Nubia Preston PA-C Unavailable Unavailab Joseph Thompson MD Unavailable [phone] Devika Bashir NP Unavailable Unavailable [facility], Pcp Primary Care Provider Unavailabl e Encounter Details Date Type Department Care Team Description 07/26/2016 Label Operator Report Medical Records [address] [place] [address] Chel Montilla MD [address] [place] [address] [phone] Social History Tobacco Use Types Packs/Day Years [...] on filedocumented in this encounter Care Teams Welder Manufacture Relationship Specialty Start Date End Date Anthony Whittaker MD [address] [place] [address] [phone] PCP - General 10/09/1995 07/20/20 Royal Pierre MD [address] [place] [address] 36608 PCP - General Internal Medicine 07/21/20 12/27/23 [facility], Pcp [address] [place] [address] PCP - General Internal Medicine 12/28/23 Chel Montilla MD [address] [place] [address] Specialist Cardiology 02/25/21 Nubia Preston PA-C [address] [place] [address] Cardiology 05/24/21 01/28/23 Joseph Berg MD [address] [place] [address] Specialist Cardiology 01/24/23 Devika Bashir NP [address] [place], [place] [phone] Cardiology 01/29/23 documented as of this encounter
--- OUTSIDE RECORDS SUMMARY | 2024-10-22 15:27 | XMS_ITS | Encounter Summary ---
Author Organization [facility] Address [address] [place] [address] Care Team Providers Care General Road Supervisor Name Role Phone Anthony Whittaker MD Primary Care Provider Royal Pierre MD Primary Care Provider [phone] Chel Montilla MD Unavailable Nubia Preston PA-C Unavailable Unavailab Joseph Thompson MD Unavailable [phone] Devika Bashir NP Unavailable Unavailable [facility], Pcp Primary Care Provider Unavailabl e Encounter Details Date Type Department Care Team Description 09/26/2018 Salesperson Books Report Medical Records [address] [place] [address] Go Ramos MD Social History Tobacco Use [...] on filedocumented in this encounter Care Teams General Road Supervisor Relationship Specialty Start Date End Date Anthony Whittaker MD [address] [place] [address] PCP - General 10/09/1995 07/20/20 Royal Pierre MD [address] [place] [address] [phone] PCP - General Internal Medicine 07/21/20 12/27/23 [facility], Pcp [address] [place] [address]753 PCP - General Internal Medicine 12/28/23 Chel Montilla MD [address] [place] [address] Specialist Cardiology 02/25/21 Nubia Preston PA-C [address] [place] [address] Cardiology 05/24/21 01/28/23 Joseph Berg MD [address] [place] [address] Specialist Cardiology 01/24/23 Devika Bashir NP [address] [place] [address] Cardiology 01/29/23 documented as of this encounter
--- OUTSIDE RECORDS SUMMARY | 2024-10-22 15:27 | XMS_ITS ---
Author Organization [facility] miguel [place] Address [address] [employer] [place] [address] Care Team Providers Care Gold Plater Name Role Phone Gabby JENSEN, Royal Contreras Primary Care Provider Unav ailable Erasto, Maria Unavailable [phone] Encounters Encounter Location Date Provider Diagnosis [facility] [address] [place] [address] 08/06/2023 Maria Maurer Plan Of Treatment No Information Progress Notes * Deacon KEYES JrDOB:[birth year] (84 yo M)Acc No.[id number]:08/06/2023 Progress Note Patient:?Deacon KEYES r Provider:?Maria Maurer DPM :1940???Age:82 Y???Sex:Male Nate e:08/06/2023 Address:[address] [place] [address] [facility] [place] Pcp:Royal Pierre MD Subjective: * Chief Complaints: * ??? * Medical History:? Objective: * Vitals:? Assessment: Plan: * Treatment: * Images: * The named appointment provid er may or may not be the originator of this progress note, and it is not deemed complete until electronically signed by the appointment provider. Sign off status: Pending * Provider:?Maria Maurer DPM Date:?2023 Generated for Trii dewey/Faluis felipe/eTransmitting on:?10/22/2024 03:26 PM EDT
--- OUTSIDE RECORDS SUMMARY | 2024-10-22 15:27 | XMS_ITS | Encounter Summary ---
Author Organization [facility] Address [address] [place] [address] Care Team Providers Care Edger Machine Setter Name Role Phone Royal Pierre MD Primary Care Provider [phone] Chel Montilla MD Unavailable Nubia Preston PA-C Unavailable Unavailab Joseph Thompson MD Unavailable Devika Bashir NP Unavailable Unavailable [facility], Pcp Primary Care Provider Unavailabl e Encounter Details Date Type Department Care Team Description 03/02/2021 SCAN Medical Records [address] [place] [address] Abstract, Provider Social History Tobacco Use Types [...] on filedocumented in this encounter Care Teams Edger Machine Setter Relationship Specialty Start Date End Date Royal Pierre MD [address] [place] [address] PCP - General Internal Medicine 07/21/20 12/27/23 [facility], Pcp [address] [place] [address]643 PCP - General Internal Medicine 12/28/23 Chel Montilla MD [address] [place] [address] Specialist Cardiology 02/25/21 Nubia Preston PA-C [address] [place] [address] Cardiology 05/24/21 01/28/23 Joseph Berg MD [address] [place] [address] Specialist Cardiology 01/24/23 Devika Bashir NP [address] [place] [address] Cardiology 01/29/23 documented as of this encounter
--- OUTSIDE RECORDS SUMMARY | 2024-10-22 15:27 | XMS_ITS | Encounter Summary ---
Author Organization [facility] Address [address] [place] [address] Care Team Providers Care Epic Analyst Name Role Phone Anthony Whittaker MD Primary Care Provider [phone] Royal Pierre MD Primary Care Provider [phone] Chel Montilla MD Unavailable Nubia Preston PA-C Unavailable Unavailab Joseph Thompson MD Unavailable [phone] Devika Bashir NP Unavailable [facility], Pcp Primary Care Provider Unavailabl e Encounter Details Date Type Department Care Team Description 09/08/2010 Reference Services Head Report Medical Records [address] [place] [address] Lee Gil MD Social History Tobacco Use [...] on filedocumented in this encounter Care Teams Epic Analyst Relationship Specialty Start Date End Date Anthony Whittaker MD [address] [place] [address] PCP - General 10/09/1995 07/20/20 Royal Pierre MD [address] [place] [address] [phone] PCP - General Internal Medicine 07/21/20 12/27/23 [facility], Pcp [address] [place] [address] PCP - General Internal Medicine 12/28/23 Chel Montilla MD [address] [place] [address] Specialist Cardiology 02/25/21 Nubia Preston PA-C [address] [place] [address]876 Cardiology 05/24/21 01/28/23 Joseph Berg MD [address] [place] [address] Specialist Cardiology 01/24/23 Devika Bashir NP [address] [place] [address] Cardiology 01/29/23 documented as of this encounter
--- OUTSIDE RECORDS SUMMARY | 2024-10-22 15:27 | XMS_ITS | Encounter Summary ---
Author Organization [facility] Address [address] [place] [address] Care Team Providers Care Strap Stitcher Name Role Phone Anthony Whittaker MD Primary Care Provider [phone] Royal Pierre MD Primary Care Provider [phone] Chel Montilla MD Unavailable Nubia Preston PA-C Unavailable Unavailab Joseph Thompson MD Unavailable [phone] Devika Bashir NP Unavailable Unavailable [facility], Pcp Primary Care Provider Unavailabl e Encounter Details Date Type Department Care Team Description 07/14/2006 Hospital Medical Records [address] [place] [address] Susy Contreras MD Social History Tobacco Use [...] on filedocumented in this encounter Care Teams Strap Stitcher Relationship Specialty Start Date End Date Anthony Whittaker MD [address] [place] [address]20 PCP - General 10/09/1995 07/20/20 Royal Pierre MD [address] [place] [address] 0[address]20 PCP - General Internal Medicine 07/21/20 12/27/23 [facility], Pcp [address] [place] [address] PCP - General Internal Medicine 12/28/23 Chel Montilla MD [address] [place] [address] Specialist Cardiology 02/25/21 Nubia Preston PA-C [address] [place] [address] Cardiology 05/24/21 01/28/23 Joseph Berg MD [address] [place] [address] Specialist Cardiology 01/24/23 Devika Bashir NP [address] [place] [address] Cardiology 01/29/23 documented as of this encounter
--- OUTSIDE RECORDS SUMMARY | 2024-10-22 15:27 | XMS_ITS | Encounter Summary ---
Author Organization [facility] Address [address] [place] [address] Care Team Providers Care Marine Electrician Apprentice Name Role Phone Royal Pierre MD Primary Care Provider [phone] Chel Montilla MD Unavailable Nubia Preston PA-C Unavailable Unavailab Joseph Thompson MD Unavailable [phone] Devika Bashir NP Unavailable Unavailable [facility], Pcp Primary Care Provider Unavailabl e Encounter Details Date Type Department Care Team Description 03/08/2021 Telephone Cardio PVC POC [phone] [facility] [address] [place] [address] Chel Montilla MD [address] [place] [address] [phone] Social History Tobacco Use Types Packs/Day Years [...] * Telephone Encounter - Latoya Stern - 03/09/2021 4:13 PM EDT Pr notified * Telephone Encounter - Chel Montilla MD - 03/08/2021 5:21 PM EDT Echo images are somewhat limited and overall shows no significant change. He can make appt to see for further discussion. documented in this encounter Plan of Treatment Not on file documented as of this encounter Visit Diagnoses Not on filedocumented in this encounter Care Teams Marine Electrician Apprentice Relationship Specialty Start Date End Date Royal Pierre MD [address] [place] [address] PCP - General Internal Medicine 07/21/20 12/27/23 [facility], Pcp [address] [place] [address] PCP - General Internal Medicine 12/28/23 Chel Montilla MD [address] [place] [address] Specialist Cardiology 02/25/21 Nubia Preston PA-C [address] [place] [address] Cardiology 05/24/21 01/28/23 Joseph Berg MD [address] [place] [address] 38[address] Specialist Cardiology 01/24/23 Devika Bashir NP [address] [place] [address] Cardiology 01/29/23 documented as of this encounter
--- OUTSIDE RECORDS SUMMARY | 2024-10-22 15:27 | XMS_ITS | Encounter Summary ---
Author Organization [facility] Address [address] [place] [address] Care Team Providers Care Storage Brine Worker Name Role Phone Anthony Whittaker MD Primary Care Provider Royal Pierre MD Primary Care Provider Chel Montilla MD Unavailable Nubia Preston PA-C Unavailable Unavailab Joseph Thompson MD Unavailable [phone] Devika Bashir NP Unavailable Unavailable [facility], Pcp Primary Care Provider Unavailabl e Reason for Visit * Reason Comments E-prescribe Rx Request Encounter Details Date Type Department Care Team Description 11/11/2017 Refill Adult Medicine [address] [phone] Anthony Whittaker MD [address] [place] [address] [phone] E-prescribe Rx Request Social History Tobacco Use [...] NO Patients current insurance carrier is: Payor: -[place] / Plan: PPO $0 [id number] / Product Type: PPO [id number] documented in this encounter Plan of Treatment Not on file documented as of this encounter Visit Diagnoses Not on filedocumented in this encounter Care Teams Storage Brine Worker Relationship Specialty Start Date End Date Anthony Whittaker MD [address] [place] [address]85 PCP - General 10/09/1995 07/20/20 Royal Pierre MD [address] [place] [address] PCP - General Internal Medicine 07/21/20 12/27/23 [facility], Pcp [address] [place] [address] PCP - General Internal Medicine 12/28/23 Chel Montilla MD [address] [place] [address] Specialist Cardiology 02/25/21 Nubia Preston PA-C [address] [place] [address] Cardiology 05/24/21 01/28/23 Joseph Berg MD [address] [place] [address] Specialist Cardiology 01/24/23 Devika Bashir NP [address] [place], [place] [phone] Cardiology 01/29/23 documented as of this encounter
--- OUTSIDE RECORDS SUMMARY | 2024-10-22 15:27 | XMS_ITS | Encounter Summary ---
Author Organization [facility] Address [address] [place] [address] Care Team Providers Care Applications Support Engineer Name Role Phone Royal Pierre MD Primary Care Provider [phone] Chel Montilla MD Unavailable Joseph Berg MD Unavailable [phone] Devika Bashir POLL WATCHER Unavailable Unavailable [facility], Pcp Primary Care Provider Unavailabl e Encounter Details Date Type Department Care Team Description 05/03/2023 Research Development Manager Report Medical Records [address] [place] [address] Ken Allen MD Social History Tobacco Use [...] on filedocumented in this encounter Care Teams Applications Support Engineer Relationship Specialty Start Date End Date Royal Pierre MD [address] [place] [address] PCP - General Internal Medicine 07/21/20 12/27/23 [facility], Pcp [address] [place] [address] PCP - General Internal Medicine 12/28/23 Chel Montilla MD [address] [place] [address] 06698 Specialist Cardiology 02/25/21 Joseph Berg MD [address] [place] [address] 28[address] Specialist Cardiology 01/24/23 Devika Bashir NP [address] [place] [address] Cardiology 01/29/23 documented as of this encounter
--- OUTSIDE RECORDS SUMMARY | 2024-10-22 15:27 | XMS_ITS ---
Author Organization [facility] Address [address] [place] [address] Care Team Providers Care Logging Equipment Mechanic Name Role Phone Gabby JENSEN, Royal Contreras Primary Care Provider Unav ailable Black, Maria Unavailable [phone] Allergies No Known Allergies REASON FOR VISIT [...] Ulcer of toe of left foot (disorder) ([id number]) Skin ulcer of toe of left foot, limited to breakdown of skin (L97.521) Active confirmed Nonapplicable Vital Signs Blood pressure systolic 126 mm Hg 09/20/19 24 Blood pressure diastolic 62 mm Hg 024 Height 5 ft 6 in in 09/20/2023 Weight 156 lbs 09/20/2023 BMI 25.18 kg/m2 09/20/2023 Procedures Procedure Date Ordered Date Performed Result Body Sit e 33168-PCDJJWC NAIL, 6 OR MORE 09/20/2023 N/A 41766-Grdxkfov Plate 09/20/2023 N/A Encounters Encounter Location Date Provider Diagnosis [facility] [place] [address] [place] [address] 09/20/2023 Maria Black Onychomycosis B35.1 ; Ingrown [...] Treatment Pending Test Test Name Order Date [id number] NAIL, 6 OR MORE 09/20/2023 [id number]-Gdkzbvps Plate 09/20/2023 Next Appt Details Follow Up: [...] Motrin was recommended for pain or discomfort (26435) Anesthesia 3cc of 1 percent Lid ocaine [...] as necessary. Patient chooses, no pharmaceutical tx (74961) Progress Notes * Deacon KEYES JrDOB:[birth year] (82 yo M)Acc No.[id number]:09/20/2023 Progress Note Patient:?Deacon Keyes Sandeep Provider:?Maria Maurer DPM :1940???Age:82 Y???Sex:Male Nate e:09/20/2023 Address:[address] [place] [address] [id number] Pcp:Royal Pierre MD Subjective: * Chief Complaints: * ???Painful nail(s) aggrevate d by shoes causing difficulty standing/walkingIngrown Nail * HPI: ???Painful Nails:?Pt States Last PCP Visit:?Date:?06/25/2023 * Medical History:? 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 Plan: * Treatment: 2.?Onychomycosis?Procedure: 77441-IEHOZEV NAIL, 6 OR MORE * Procedures:?Debride Nail 6-10:?Nail debridement?Nail debridement performed extensively to reduce/remove overall nail length and girth, subungual debris, and necrotic tissue, by manual and electrical means with use of a nail nipper and/or dremel, to more viable healthy nail plate or bed tissue 6-10. Silver nitrate used for any petechial bleeding as necessary. Patient chooses, no pharmaceutical tx (88489).?Nail Avulsion:?Location?Medial nail border , TA.?Anesthesia?3cc of 1 [...] Motrin was recommended for pain or discomfort (17191).? * Procedure Codes:?25757 DEBRI DE NAIL, 6 OR MORE, Modifiers: XS 01198 Avulsion Plate, Modifiers: TA * Follow Up:?2 Weeks * Images: * Sign off status: Completed true * Provider:?Maria Maurer DPM Date:?2023 Generated for Ángel palomo/Oni/Chapo on:?10/22/2024 03:27 PM EDT History and Physical Notes * [...]
--- OUTSIDE RECORDS SUMMARY | 2024-10-22 15:27 | XMS_ITS | Encounter Summary ---
Author Organization [facility] Address [address] [place] [address] Care Team Providers Care Research Associate Professor Name Role Phone Anthony Whittaker MD Primary Care Provider [phone] Royal Pierre MD Primary Care Provider [phone] Chel Montilla MD Unavailable Nubia Preston PA-C Unavailable Unavailab Joseph Thompson MD Unavailable [phone] Devika Bashir NP Unavailable Unavailable [facility], Pcp Primary Care Provider Unavailabl e Encounter Details Date Type Department Care Team Description 11/05/2018 Honing Machine Operator Tool Report Medical Records [address] [place] [address] Chel Montilla MD [address] [place] [address] [phone] Social History Tobacco Use Types Packs/Day Years [...] on filedocumented in this encounter Care Teams Research Associate Professor Relationship Specialty Start Date End Date Anthony Whittaker MD [address] [place] [address] [phone] PCP - General 10/09/1995 07/20/20 Royal Pierre MD [address] [place] [address] 61220 PCP - General Internal Medicine 07/21/20 12/27/23 [facility], Pcp [address] [place] [address] PCP - General Internal Medicine 12/28/23 Chel Montilla MD [address] [place] [address] Specialist Cardiology 02/25/21 Nubia Preston PA-C [address] [place] [address] Cardiology 05/24/21 01/28/23 Joseph Berg MD [address] [place] [address] Specialist Cardiology 01/24/23 Devika Bashir NP [address] [place], [place] [phone] Cardiology 01/29/23 documented as of this encounter
--- OUTSIDE RECORDS SUMMARY | 2024-10-22 15:27 | XMS_ITS | Encounter Summary ---
Author Organization [facility] Address [address] [place] [address] Care Team Providers Care Yardage Control Clerk Name Role Phone Anthony Whittaker MD Primary Care Provider + [phone] Royal Pierre MD Primary Care Provider [phone] Chel Montilla MD Unavailable Nubia Preston PA-C Unavailable Unavailab Joseph Thompson MD Unavailable [phone] Devika Bashir NP Unavailable Unavailable [facility], Pcp Primary Care Provider Unavailabl e Encounter Details Date Type Department Care Team Description 06/04/2013 Business Doc Medical Records [address] [place] [address] Abstract, Provider Social History Tobacco Use Types [...] on filedocumented in this encounter Care Teams Yardage Control Clerk Relationship Specialty Start Date End Date Anthony Whittaker MD [address] [place] [address] [phone] PCP - General 10/09/1995 07/20/20 Royal Pierre MD [address] [place] [address] 83202 PCP - General Internal Medicine 07/21/20 12/27/23 [facility], Pcp [address] [place] [address] PCP - General Internal Medicine 12/28/23 Chel Montilla MD [address] [place] [address] Specialist Cardiology 02/25/21 Nubia Preston PA-C [address] [place] [address] Cardiology 05/24/21 01/28/23 Joseph Berg MD [address] [place] [address] Specialist Cardiology 01/24/23 Devika Bashir NP [address] [place] [address] Cardiology 01/29/23 documented as of this encounter
--- OUTSIDE RECORDS SUMMARY | 2024-10-22 15:27 | XMS_ITS | Encounter Summary ---
Author Organization [facility] Address [address] [place] [address] Care Team Providers Care Setup Operator Name Role Phone Anthony Whittaker MD Primary Care Provider Royal Pierre MD Primary Care Provider [phone] Chel Montilla MD Unavailable Nubia Preston PA-C Unavailable Unavailab Joseph Thompson MD Unavailable [phone] Devika Bashir NP Unavailable Unavailable [facility], Pcp Primary Care Provider Unavailabl e Encounter Details Date Type Department Care Team Description 02/19/2018 Hospital Medical Records [address] [place] [address] Timothy Black Social History Tobacco Use Types [...] on filedocumented in this encounter Care Teams Setup Operator Relationship Specialty Start Date End Date Anthony Whittaker MD [address] [place] [address] PCP - General 10/09/1995 07/20/20 Royal Pierre MD [address] [place] [address] [phone] PCP - General Internal Medicine 07/21/20 12/27/23 [facility], Pcp [address] [place] [address]224 PCP - General Internal Medicine 12/28/23 Chel Montilla MD [address] [place] [address] Specialist Cardiology 02/25/21 Nubia Preston PA-C [address] [place] [address]608 Cardiology 05/24/21 01/28/23 Joseph Berg MD [address] [place] [address] Specialist Cardiology 01/24/23 Devika Bashir NP [address] [place] [address] Cardiology 01/29/23 documented as of this encounter
--- OUTSIDE RECORDS SUMMARY | 2024-10-22 15:27 | XMS_ITS | Encounter Summary ---
Author Organization [facility] Address [address] [place] [address] Care Team Providers Care Coordinator Of Placement Name Role Phone Anthony Whittaker MD Primary Care Provider Royal Pierre MD Primary Care Provider [phone] Chel Montilla MD Unavailable Nubia Preston PA-C Unavailable Unavailab Joseph Thompson MD Unavailable [phone] Devika Bashir NP Unavailable Unavailable [facility], Pcp Primary Care Provider Unavailabl e Encounter Details Date Type Department Care Team Description 07/17/2018 Quality Process Auditor Report Medical Records [address] [place] [address] [facility] Social History Tobacco Use Types Packs/Day [...] on filedocumented in this encounter Care Teams Coordinator Of Placement Relationship Specialty Start Date End Date Anthony Whittaker MD [address] [place] [address] PCP - General 10/09/1995 07/20/20 Royal Pierre MD [address] [place] [address] PCP - General Internal Medicine 07/21/20 12/27/23 [facility], Pcp [address] [place] [address] PCP - General Internal Medicine 12/28/23 Chel Montilla MD [address] [place] [address] Specialist Cardiology 02/25/21 Nubia Preston PA-C [address] [place] [address] 96103 Cardiology 05/24/21 01/28/23 Joseph Berg MD [address] [place] [address] Specialist Cardiology 01/24/23 Devika Bashir NP [address] [place] [address] Cardiology 01/29/23 documented as of this encounter
--- OUTSIDE RECORDS SUMMARY | 2024-10-22 15:27 | XMS_ITS | Encounter Summary ---
Author Organization [facility] Address [address] [place] [address] Care Team Providers Care Manager Zone Name Role Phone Royal Pierre MD Primary Care Provider [phone] Chel Montilla MD Unavailable Nubia Preston PA-C Unavailable Unavailab Jsoeph Thompson MD Unavailable [phone] Devika Bashir NP Unavailable Unavailable [facility], Pcp Primary Care Provider Unavailabl e Encounter Details Date Type Department Care Team Description 03/25/2021 Orders Only Adult Medicine [address] [phone] Chantal Smith PA-C Social History Tobacco Use [...] on filedocumented in this encounter Care Teams Manager Zone Relationship Specialty Start Date End Date Royal Pierre MD [address] [place] [address] PCP - General Internal Medicine 07/21/20 12/27/23 [facility], Pcp [address] [place] [address] PCP - General Internal Medicine 12/28/23 Chel Montilla MD [address] [place] [address] Specialist Cardiology 02/25/21 Nubia Preston PA-C [address] [place] [address] Cardiology 05/24/21 01/28/23 Joseph Berg MD [address] [place] [address] Specialist Cardiology 01/24/23 Devika Bashir NP [address] [place] [address] Cardiology 01/29/23 documented as of this encounter
--- OUTSIDE RECORDS SUMMARY | 2024-10-22 15:27 | XMS_ITS | Encounter Summary ---
Author Organization [facility] Address [address] [place] [address] Care Team Providers Care Color Coater Name Role Phone Anthony Whittaker MD Primary Care Provider [phone] Royal Pierre MD Primary Care Provider [phone] Chel Montilla MD Unavailable Nubia Preston PA-C Unavailable Unavailab Joseph Thompson MD Unavailable [phone] Devika Bashir NP Unavailable Unavailable [facility], Pcp Primary Care Provider Unavailabl e Encounter Details Date Type Department Care Team Description 11/11/2012 Incoming Correspondence Medical Records [address] [place] [address] [facility] Social History Tobacco Use Types [...] on filedocumented in this encounter Care Teams Color Coater Relationship Specialty Start Date End Date Anthony Whittaker MD [address] [place] [address] [phone] PCP - General 10/09/1995 07/20/20 Royal Pierre MD [address] [place] [address] [phone] PCP - General Internal Medicine 07/21/20 12/27/23 [facility], Pcp [address] [place] [address] PCP - General Internal Medicine 12/28/23 Chel Montilla MD [address] [place] [address] Specialist Cardiology 02/25/21 Nubia Preston PA-C [address] [place] [address] Cardiology 05/24/21 01/28/23 Joseph Berg MD [address] [place] [address] Specialist Cardiology 01/24/23 Devika Bashir NP [address] [place] [address] Cardiology 01/29/23 documented as of this encounter
--- OUTSIDE RECORDS SUMMARY | 2024-10-22 15:27 | XMS_ITS | Encounter Summary ---
Author Organization [facility] Address [address] [place] [address] Care Team Providers Care Stack Yield Engineer Name Role Phone Anthony Whittaker MD Primary Care Provider [phone] Royal Pierre MD Primary Care Provider [phone] Chel Montilla MD Unavailable Nubia Preston PA-C Unavailable Unavailab Joseph Thompson MD Unavailable [phone] Devika Bashir NP Unavailable Unavailable [facility], Pcp Primary Care Provider Unavailabl e Reason for Visit * Reason Onset Date Comments VNA Call 03/15/2018 Encounter Details Date Type Department Care Team Description 03/15/2018 Telephone Adult Medicine [address] [phone] Anthony Whittaker MD [address] [place] [address] 16770 [facility] Call Social History Tobacco Use Types [...] [facility]NA CALL Which [facility] office is calling? [facility] Full name of caller: Bianka Joaquín The caller is A nurse Is [...] on filedocumented in this encounter Care Teams Stack Yield Engineer Relationship Specialty Start Date End Date Anthony Whittaker MD [address] [place] [address] PCP - General 10/09/1995 07/20/20 Royal Pierre MD [address] [place] [address] 39285 PCP - General Internal Medicine 07/21/20 12/27/23 [facility], Pcp [address] [place] [address] 40871 PCP - General Internal Medicine 12/28/23 Chel Montilla MD [address] [place] [address] Specialist Cardiology 02/25/21 Nubia Preston PA-C [address] [place] [address] 13522 Cardiology 05/24/21 01/28/23 Joseph Berg MD [address] [place] [address] Specialist Cardiology 01/24/23 Devika Bashir NP [address] [place] [address] 15949 Cardiology 01/29/23 documented as of this encounter
--- OUTSIDE RECORDS SUMMARY | 2024-10-22 15:27 | XMS_ITS | Encounter Summary ---
Author Organization [facility] Address [address] [place] [address] Care Team Providers Care Technical Sales Advisor Name Role Phone Anthony Whittaker MD Primary Care Provider [phone] Royal Pierre MD Primary Care Provider [phone] Chel Montilla MD Unavailable Nubia Preston PA-C Unavailable Unavailab Joseph Thompson MD Unavailable [phone] Devika Bashir NP Unavailable Unavailable [facility], Pcp Primary Care Provider Unavailabl e Reason for Visit * Reason Onset Date Comments Provider Call Back 04/03/2018 Encounter Details Date Type Department Care Team Description 04/03/2018 Telephone Adult Medicine [address] [phone] Anthony Whittaker MD [address] [place] [address] 20415 Provider Call Back Social History Tobacco Use [...] answering phone advised [place] [facility] [place] [facility] * Telephone Encounter - Anthony Whittaker [...] an appt at the flu clinic in [place] Please review and advise is aware Dr. [...] filedocumented in this encounter Care Teams Technical Sales Advisor Relationship Specialty Start Date End Date Anthony Whittaker MD [address] [place] [address] PCP - General 10/09/1995 07/20/20 Royal Pierre MD [address] [place] [address] 10362 PCP - General Internal Medicine 07/21/20 12/27/23 [facility], [address] [address] PCP - General Internal Medicine 12/28/23 Chel Montilla MD [address] [place] [address] Specialist Cardiology 02/25/21 Nubia Preston PA-C [address] [place] [address] 07478 Cardiology 05/24/21 01/28/23 Joseph Berg MD [address] [place] [address] Specialist Cardiology 01/24/23 Devika Bashir NP [address] [place] [address] Cardiology 01/29/23 documented as of this encounter
--- OUTSIDE RECORDS SUMMARY | 2024-10-22 15:27 | XMS_ITS | Encounter Summary ---
Author Organization [facility] Address [address] [place] [address] Care Team Providers Care Vehicle Monitor Technician Name Role Phone Anthony Whittaker MD Primary Care Provider [phone] Royal Pierre MD Primary Care Provider [phone] Chel Montilla MD Unavailable Nubia Preston PA-C Unavailable Unavailab Joseph Thompson MD Unavailable [phone] Devika Bashir NP Unavailable Unavailable [facility], Pcp Primary Care Provider Unavailabl e Reason for Visit * Reason Onset Date Comments Call From Patient Family 03/08/2018 Encounter Details Date Type Department Care Team Description 03/08/2018 Telephone Adult Medicine [address] [phone] Anthony Whittaker MD [address] [place] [address] [phone] Call From Patient Family Social History Tobacco [...] 2:44 PM EDT Patient calling to let Antohny Whittaker know that patient has been admitted to [facility] documented in this encounter Plan of Treatment Not on file documented as of this encounter Visit Diagnoses Not on filedocumented in this encounter Care Teams Vehicle Monitor Technician Relationship Specialty Start Date End Date Anthony Whittaker MD [address] [place] [address]75 PCP - General 10/09/1995 07/20/20 Royal Pierre MD [address] [place] [address] 19832 PCP - General Internal Medicine 07/21/20 12/27/23 [facility], Pcp [address] [place] [address] 8[address]40 PCP - General Internal Medicine 12/28/23 Chel Montilla MD [address] [place] [address] Specialist Cardiology 02/25/21 Nubia Preston PA-C [address] [place] [address] 45043 Cardiology 05/24/21 01/28/23 Joseph Berg MD [address] [place] [address]31 Specialist Cardiology 01/24/23 Devika Bashir NP [address] [place] [address] 080[address] Cardiology 01/29/23 documented as of this encounter
--- OUTSIDE RECORDS SUMMARY | 2024-10-22 15:27 | XMS_ITS | Encounter Summary ---
Author Organization [facility] Address [address] [place] [address] Care Team Providers Care Animal Researcher Name Role Phone Anthony Whittaker MD Primary Care Provider [phone] Royal Pierre MD Primary Care Provider [phone] Chel Montilla MD Unavailable Nubia Preston PA-C Unavailable Unavailab Joseph Thompson MD Unavailable [phone] Devika Bashir NP Unavailable Unavailable [facility], Pcp Primary Care Provider Unavailabl e Encounter Details Date Type Department Care Team Description 12/06/2011 Industrial Electrician Report Medical Records [address] [place] [address] Lee Gil MD Social History Tobacco Use [...] on filedocumented in this encounter Care Teams Animal Researcher Relationship Specialty Start Date End Date Anthony Whittaker MD [address] [place] [address] [phone] PCP - General 10/09/1995 07/20/20 Royal Pierre MD [address] [place] [address] [phone] PCP - General Internal Medicine 07/21/20 12/27/23 [facility], Pcp [address] [place] [address] PCP - General Internal Medicine 12/28/23 Chel Montilla MD [address] [place] [address] Specialist Cardiology 02/25/21 Nubia Preston PA-C [address] [place] [address]19 Cardiology 05/24/21 01/28/23 Joseph Berg MD [address] [place] [address] Specialist Cardiology 01/24/23 Devika Bashir NP [address] [place] [address] Cardiology 01/29/23 documented as of this encounter
--- OUTSIDE RECORDS SUMMARY | 2024-10-22 15:27 | XMS_ITS | Encounter Summary ---
Author Organization [facility] Address [address] [place] [address] Care Team Providers Care Equipment Cleaner And Tester Name Role Phone Anthony Whittaker MD Primary Care Provider [phone] Royal Pierre MD Primary Care Provider [phone] Chel Montilla MD Unavailable Nubia Preston PA-C Unavailable Unavailab Joseph Thompson MD Unavailable [phone] Devika Bashir NP Unavailable Unavailable [facility], Pcp Primary Care Provider Unavailabl e Encounter Details Date Type Department Care Team Description 01/30/2018 Hospital Medical Records [address] [place] [address] Jeanine Pedersen MD Social History Tobacco Use [...] filedocumented in this encounter Care Teams Equipment Cleaner And Tester Relationship Specialty Start Date End Date Anthony Whittaker MD [address] [place] [address] [phone] PCP - General 10/09/1995 07/20/20 Royal Pierre MD [address] [place] [address]1020 PCP - General Internal Medicine 07/21/20 12/27/23 [facility], Pcp [address] [place] [address] PCP - General Internal Medicine 12/28/23 Chel Montilla MD [address] [place] [address] Specialist Cardiology 02/25/21 Nubia Preston PA-C [address] [place] [address] Cardiology 05/24/21 01/28/23 Joseph Berg MD [address] [place] [address] Specialist Cardiology 01/24/23 Devika Bashir NP [address] [place] [address] Cardiology 01/29/23 documented as of this encounter
--- OUTSIDE RECORDS SUMMARY | 2024-10-22 15:27 | XMS_ITS | Encounter Summary ---
Author Organization [facility] Address [address] [place] [address] Care Team Providers Care Fish Roe Technician Name Role Phone Royal Pierre MD Primary Care Provider [phone] Chel Montilla MD Unavailable Nubia Preston PA-C Unavailable Unavailab Joseph Thompson MD Unavailable [phone] Devika Bashir NP Unavailable Unavailable [facility], Pcp Primary Care Provider Unavailabl e Encounter Details Date Type Department Care Team Description 10/14/2020 Biochemistry Technologist Report Medical Records [address] [place] [address]78 Edward Garcia MD Social History Tobacco Use [...] filedocumented in this encounter Care Teams Fish Roe Technician Relationship Specialty Start Date End Date Royal Pierre MD [address] [place] [address] [phone] PCP - General Internal Medicine 07/21/20 12/27/23 [facility], Pcp [address] [place] [address] 6[address]45 PCP - General Internal Medicine 12/28/23 Chel Montilla MD [address] [place] [address] [phone] Specialist Cardiology 02/25/21 Nubia Preston PA-C [address] [place] [address] Cardiology 05/24/21 01/28/23 Joseph Berg MD [address] [place], [place] [phone] Specialist Cardiology 01/24/23 Devika Bashir NP [address] [place] [address] Cardiology 01/29/23 documented as of this encounter
--- OUTSIDE RECORDS SUMMARY | 2024-10-22 15:27 | XMS_ITS | Encounter Summary ---
Author Organization [facility] Address [address] [place] [address] Care Team Providers Care Agricultural Equipment Salesperson Name Role Phone Anthony Whittaker MD Primary Care Provider [phone] Royal Pierre MD Primary Care Provider [phone] Chel Montilla MD Unavailable Nubia Preston PA-C Unavailable Unavailab Joseph Thompson MD Unavailable [phone] Devika Bashir NP Unavailable Unavailable [facility], Pcp Primary Care Provider Unavailabl e Encounter Details Date Type Department Care Team Description 11/12/2011 Hospital Medical Records [address] [place] [address] Mo Valentin MD [address] [place] [address] [phone] Social History Tobacco Use Types Packs/Day Years [...] on filedocumented in this encounter Care Teams Agricultural Equipment Salesperson Relationship Specialty Start Date End Date Anthony Whittaker MD [address] [place] [address] [phone] PCP - General 10/09/1995 07/20/20 Royal Pierre MD [address] [place] [address] 9[address]26 PCP - General Internal Medicine 07/21/20 12/27/23 [facility], Pcp [address] [place] [address] PCP - General Internal Medicine 12/28/23 Chel Montilla MD [address] [place] [address] Specialist Cardiology 02/25/21 Nubia Preston PA-C [address] [place] [address] Cardiology 05/24/21 01/28/23 Joseph Berg MD [address] [place] [address] Specialist Cardiology 01/24/23 Devika Bashir NP [address] [place], [place] [phone] Cardiology 01/29/23 documented as of this encounter
--- OUTSIDE RECORDS SUMMARY | 2024-10-22 15:28 | XMS_ITS | Encounter Summary ---
Author Organization [facility] Address [address] [place] [address] Care Team Providers Care Chief Physical Therapist Name Role Phone Anthony Whittaker MD Primary Care Provider Royal Pierre MD Primary Care Provider Chel Montilla MD Unavailable Nubia Preston PA-C Unavailable Unavailab Joseph Thompson MD Unavailable [phone] Devika Bashir NP Unavailable Unavailable [facility], Pcp Primary Care Provider Unavailabl e Reason for Visit * Reason Onset Date Comments LAB WORK 04/09/2020 Encounter Details Date Type Department Care Team Description 04/09/2020 Telephone Adult Medicine [address] [phone] Anthony Whittaker MD [address] [place] [address] 31031 LAB WORK Social History Tobacco Use Types [...] [facility] Cbc with auto diff, rbc,lipids documented in this encounter Plan of Treatment Not on file documented as of this encounter Visit Diagnoses Not on filedocumented in this encounter Care Teams Chief Physical Therapist Relationship Specialty Start Date End Date Anthony Whittaker MD [address] [place] [address] 32395 PCP - General 10/09/1995 07/20/20 Royal Pierre MD [address] [place] [address] 83072 PCP - General Internal Medicine 07/21/20 12/27/23 [facility], Pcp [address] [place] [address] 58540 PCP - General Internal Medicine 12/28/23 Chel Montilla MD [address] [place] [address] 58797 Specialist Cardiology 02/25/21 Nubia Preston PA-C [address] [place] [address] 47227 Cardiology 05/24/21 01/28/23 Joseph Berg MD [address] [place] [address] 92532 Specialist Cardiology 01/24/23 Devika Bashir NP [address] [place] [address] 23777 Cardiology 01/29/23 documented as of this encounter
--- OUTSIDE RECORDS SUMMARY | 2024-10-22 15:28 | XMS_ITS | Encounter Summary ---
Author Organization [facility] Address [address] [place] [address] Care Team Providers Care Bag Maker Name Role Phone Royal Pierre MD Primary Care Provider [phone] Chel Montilla MD Unavailable Nubai Preston PA-C Unavailable Unavailab Joseph Thompson MD Unavailable [phone] Devika Bashir NP Unavailable Unavailable [facility], Pcp Primary Care Provider Unavailabl e Reason for Visit * Reason Comments Remote Device Check ALERT: 10 seconds [place] Encounter Details Date Type Department Care Team Description 01/15/2023 Remote Device Check Cardio PVC POC 154 [address] [facility] [address] [place], [place] [phone] Joseph Berg MD [address] [place] [address] [id number] Social History Tobacco Use Types Packs/Day Years [...] on filedocumented in this encounter Care Teams Bag Maker Relationship Specialty Start Date End Date Royal Pierre MD [address] [place] [address] PCP - General Internal Medicine 07/21/20 12/27/23 [facility], Pcp [address] [place] [address] PCP - General Internal Medicine 12/28/23 Chel Montilla MD [address] [place] [address] Specialist Cardiology 02/25/21 Nubia Preston PA-C [address] [place] [address] Cardiology 05/24/21 01/28/23 Joseph Berg MD [address] [place] [address] Specialist Cardiology 01/24/23 Devika Bashir NP [address] [place], [place] [phone] Cardiology 01/29/23 documented as of this encounter
--- OUTSIDE RECORDS SUMMARY | 2024-10-22 15:28 | XMS_ITS | Encounter Summary ---
Author Organization [facility] Address [address] [place] [address] Care Team Providers Care Squeegee Operator Name Role Phone Royal Pierre MD Primary Care Provider [phone] Chel Montilla MD Unavailable Nubia Preston PA-C Unavailable Unavailab Joseph Thompson MD Unavailable Devika Bashir NP Unavailable Unavailable [facility], Pcp Primary Care Provider Unavailabl e Encounter Details Date Type Department Care Team Description 01/20/2022 Hospital Medical Records [address] [place] [address]99 [facility] Social History Tobacco Use Types [...] on filedocumented in this encounter Care Teams Squeegee Operator Relationship Specialty Start Date End Date Royal Pierre MD [address] [place] [address] [phone] PCP - General Internal Medicine 07/21/20 12/27/23 [facility], Pcp [address] [place] [address] 91821 PCP - General Internal Medicine 12/28/23 Chel Montilla MD [address] [place] [address] Specialist Cardiology 02/25/21 Nubia Preston PA-C [address] [place] [address] Cardiology 05/24/21 01/28/23 Joseph Berg MD [address] [place] [address] Specialist Cardiology 01/24/23 Devika Bashir NP [address] [place] [address] Cardiology 01/29/23 documented as of this encounter
--- OUTSIDE RECORDS SUMMARY | 2024-10-22 15:28 | XMS_ITS | Encounter Summary ---
Author Organization [facility] Address [address] [place] [address] Care Team Providers Care Animal Science Professor Name Role Phone Anthony Whittaker MD Primary Care Provider [phone] Royal Pierre MD Primary Care Provider [phone] Chel Montilla MD Unavailable Nubia Preston PA-C Unavailable Unavailab Joseph Thompson MD Unavailable [phone] Devika Bashir NP Unavailable [facility]available [facility], Pcp Primary Care Provider Unavailabl e Encounter Details Date Type Department Care Team Description 11/11/2011 Hospital Medical Records [address] [place] [address] 34209 Jase Sandra MD Social History Tobacco Use [...] filedocumented in this encounter Care Teams Animal Science Professor Relationship Specialty Start Date End Date Anthony Whittaker MD [address] [place] [address] 01020 PCP - General 10/09/1995 07/20/20 Royal Pierre MD [address] [place] [address] 01020 PCP - General Internal Medicine 07/21/20 12/27/23 [facility], Pcp [address] [place] [address] PCP - General Internal Medicine 12/28/23 Chel Montilla MD [address] [place] [address] Specialist Cardiology 02/25/21 Nubia Preston PA-C [address] [place] [address] Cardiology 05/24/21 01/28/23 Joseph Berg MD [address] [place] [address] Specialist Cardiology 01/24/23 Devika Bashir NP [address] [place] [address] Cardiology 01/29/23 documented as of this encounter
--- OUTSIDE RECORDS SUMMARY | 2024-10-22 15:28 | XMS_ITS | Encounter Summary ---
Author Organization [facility] Address [address] [place] [address] Care Team Providers Care Activity Therapy Teacher Name Role Phone Anthony Whittaker MD Primary Care Provider [phone] Royal Pierre MD Primary Care Provider [phone] Chel Montilla MD Unavailable Nubia Preston PA-C Unavailable Unavailab Joseph Thompson MD Unavailable [phone] Devika Bashir NP Unavailable Unavailable [facility], Pcp Primary Care Provider Unavailabl e Encounter Details Date Type Department Care Team Description 10/17/2011 Repairer Hairspring Report Medical Records [address] [place] [address] 24265 Lee Gil MD Social History Tobacco Use [...] on filedocumented in this encounter Care Teams Activity Therapy Teacher Relationship Specialty Start Date End Date Antohny Whittaker MD [address] [place] [address] [phone] PCP - General 10/09/1995 07/20/20 Royal Pierre MD [address] [place] [address] [phone] PCP - General Internal Medicine 07/21/20 12/27/23 [facility], Pcp [address] [place] [address] PCP - General Internal Medicine 12/28/23 Chel Montilla MD [address] [place] [address] Specialist Cardiology 02/25/21 Nubia Preston PA-C [address] [place] [address] 56069 Cardiology 05/24/21 01/28/23 Joseph Berg MD [address] [place] [address] Specialist Cardiology 01/24/23 Devika Bashir NP [address] [place] [address] Cardiology 01/29/23 documented as of this encounter
--- OUTSIDE RECORDS SUMMARY | 2024-10-22 15:28 | XMS_ITS | Encounter Summary ---
Author Organization [facility] Address [address] [place] [address] Care Team Providers Care Locomotive Engineer Electric Name Role Phone Royal Pierre MD Primary Care Provider [phone] Chel Montilla MD Unavailable Nubia Preston PA-C Unavailable Unavailab Joseph Thompson MD Unavailable [phone] Devika Bashir NP Unavailable [facility]available [facility], Pcp Primary Care Provider Unavailabl e Encounter Details Date Type Department Care Team Description 11/06/2021 Hospital Medical Records [address] [place], [place] [address] [place] [address] Social History Tobacco Use Types Packs/Day Years [...] on filedocumented in this encounter Care Teams Locomotive Engineer Electric Relationship Specialty Start Date End Date Royal Pierre MD [address] [place] [address] PCP - General Internal Medicine 07/21/20 12/27/23 [facility], Pcp [address] [place] [address] PCP - General Internal Medicine 12/28/23 Chel Montilla MD [address] [place] [address] Specialist Cardiology 02/25/21 Nubia Preston PASaimaC [address] [place] [address] 08004 Cardiology 05/24/21 01/28/23 Joseph Berg MD [address] [place] [address] Specialist Cardiology 01/24/23 Devika Bashir NP [address] [place] [address] 04176 Cardiology 01/29/23 documented as of this encounter
--- OUTSIDE RECORDS SUMMARY | 2024-10-22 15:28 | XMS_ITS | Encounter Summary ---
Author Organization [facility] Address [address] [place] [address] Care Team Providers Care Roofing Machine Operator Name Role Phone Anthony Whittaker MD Primary Care Provider [phone] Royal Pierre MD Primary Care Provider [phone] Chel Montilla MD Unavailable Nubia Preston PA-C Unavailable Unavailab Joseph Thompson MD Unavailable [phone] Devika Bashir NP Unavailable [facility], Pcp Primary Care Provider Unavailabl e Encounter Details Date Type Department Care Team Description 2017 Release of Information Medical Records [address] [place] [address] 22897 Abstract, Provider Social History Tobacco Use Types [...] on filedocumented in this encounter Care Teams Roofing Machine Operator Relationship Specialty Start Date End Date Anthony Whittaker MD [address] [place] [address] 01020 PCP - General 10/09/1995 07/20/20 Royal Pierre MD [address] [place] [address] [phone] PCP - General Internal Medicine 07/21/20 12/27/23 [facility], Pcp [address] [place] [address] PCP - General Internal Medicine 12/28/23 Chel Montilla MD [address] [place] [address] Specialist Cardiology 02/25/21 Nubia Preston PA-C [address] [place] [address] 87876 Cardiology 05/24/21 01/28/23 Joseph Berg MD [address] [place] [address] Specialist Cardiology 01/24/23 Devika Bashir NP [address] [place] [address] Cardiology 01/29/23 documented as of this encounter
--- OUTSIDE RECORDS SUMMARY | 2024-10-22 15:28 | XMS_ITS | Encounter Summary ---
Author Organization [facility] Address [address] [place] [address] Care Team Providers Care Computer Network Support Specialist Name Role Phone Anthony Whittaker MD Primary Care Provider Royal Pierre MD Primary Care Provider [phone] Chel Montilla MD Unavailable Nubia Preston PA-C Unavailable Unavailab Joseph Thompson MD Unavailable [phone] Devika Bashir NP Unavailable Unavailable [facility], Pcp Primary Care Provider Unavailabl e Reason for Visit * Reason Onset Date Comments TEST RESULTS 04/21/2020 Encounter Details Date Type Department Care Team Description 04/21/2020 Telephone Adult Medicine [address] [address] Reno Marie PA-C [address] [place] [address] 36288 TEST RESULTS Social History Tobacco Use Types [...] front office no reports Request sent to [facility] for Ct report Call to [facility] to follow up, will fax to [facility] srinivas fax * Telephone Encounter - Emma Wick - 04/21/2020 10:45 AM EDT Inform patient: ANY URGENT OR ABNORMAL RESULTS WIILL RESULT IN A CALL BACK TO THE PATIENT TINO. Patient walked in. States that she has a copy of her husbands test results and is worried about cysts he has. States that she read the results . States [facility] gave her results so we should have received a copy Type of test: : Ultrasound of right knee Date test was performed: not sure of day Where was the test performed: [facility] Who ordered this test?: Reno Cynthia Is [...] on filedocumented in this encounter Care Teams Computer Network Support Specialist Relationship Specialty Start Date End Date Anthony Whittaker MD [address] [place] [address] 89627 PCP - General 10/09/1995 07/20/20 Royal Pierre MD [address] [place] [address] 59283 PCP - General Internal Medicine 07/21/20 12/27/23 [facility], Humza [address] [place] [address] PCP - General Internal Medicine 12/28/23 Chel Montilla MD [address] [place] [address] 25310 Specialist Cardiology 02/25/21 Nubia Preston PA-C [address] [place] [address] 82979 Cardiology 05/24/21 01/28/23 Joseph Berg MD [address] [place] [address] 14649 Specialist Cardiology 01/24/23 Devika Bashir NP [address] [place] [address] 20549 Cardiology 01/29/23 documented as of this encounter
--- OUTSIDE RECORDS SUMMARY | 2024-10-22 15:28 | XMS_ITS | Encounter Summary ---
Author Organization [facility] Address [address] [place] [address] Care Team Providers Care Rn Bariatric Name Role Phone Royal Pierre MD Primary Care Provider [phone] Chel Montilla MD Unavailable Nubia Preston PA-C Unavailable Unavailab Joseph Thompson MD Unavailable [phone] Devika Bashir NP Unavailable Unavailable [facility], Pcp Primary Care Provider Unavailabl e Encounter Details Date Type Department Care Team Description 12/06/2021 Wire Rope Sales Representative Report Medical Records [address] [place] [address] [phone] Social History Tobacco Use Types Packs/Day Years [...] filedocumented in this encounter Care Teams Rn Bariatric Relationship Specialty Start Date End Date Royal Pierre MD [address] [place], [place] [phone] PCP - General Internal Medicine 07/21/20 12/27/23 [facility], Pcp [address] [place] [address] 36271 PCP - General Internal Medicine 12/28/23 Chel Montilla MD [address] [place] [address] Specialist Cardiology 02/25/21 Nubia Preston PA-C [address] [place] [address] 76878 Cardiology 05/24/21 01/28/23 Joseph Berg MD [address] [place] [address] Specialist Cardiology 01/24/23 Devika Bashir NP [address] [place] [address] Cardiology 01/29/23 documented as of this encounter
--- OUTSIDE RECORDS SUMMARY | 2024-10-22 15:28 | XMS_ITS | Encounter Summary ---
Author Organization [facility] Address [address] [place] [address] Care Team Providers Care Dry Cure Worker Name Role Phone Anthony Whittaker MD Primary Care Provider Royal Pierre MD Primary Care Provider [phone] Chel Montilla MD Unavailable Nubia Preston PA-C Unavailable Unavailab Joseph Thompson MD Unavailable [phone] Devika Bashir NP Unavailable Unavailable [facility], Pcp Primary Care Provider Unavailabl e Encounter Details Date Type Department Care Team Description 05/16/2019 Account Retention Representative Report Medical Records [address] [place] [address] [facility] Social History Tobacco Use Types [...] on filedocumented in this encounter Care Teams Dry Cure Worker Relationship Specialty Start Date End Date Anthony Whittaker MD [address] [place] [address] [phone] PCP - General 10/09/1995 07/20/20 Royal Pierre MD [address] [place] [address] 01020 PCP - General Internal Medicine 07/21/20 12/27/23 [facility], Pcp [address] [place] [address] PCP - General Internal Medicine 12/28/23 Chel Montilla MD [address] [place] [address] Specialist Cardiology 02/25/21 Nubia Preston PA-C [address] [place] [address] 18154 Cardiology 05/24/21 01/28/23 Joseph Berg MD [address] [place] [address] Specialist Cardiology 01/24/23 Devika Bashir NP [address] [place] [address] Cardiology 01/29/23 documented as of this encounter
--- OUTSIDE RECORDS SUMMARY | 2024-10-22 15:28 | XMS_ITS | Encounter Summary ---
Author Organization [facility] Address [address] [place] [address] Care Team Providers Care Digital Media Designer Name Role Phone Royal Pierre MD Primary Care Provider [phone] Chel Montilla MD Unavailable Nubia Preston PA-C Unavailable Unavailab Joseph Thompson MD Unavailable [phone] Devika Bashir NP Unavailable Unavailable [facility], Pcp Primary Care Provider Unavailabl e Reason for Visit * Reason Comments E-prescribe Rx Request Encounter Details Date Type Department Care Team Description 08/28/2021 Refill Adult Medicine [address] [phone] Raya Guillen NP E-prescribe Rx Request Social [...] on filedocumented in this encounter Care Teams Digital Media Designer Relationship Specialty Start Date End Date Royal Pierre MD [address] [place] [address] PCP - General Internal Medicine 07/21/20 12/27/23 [facility], Pcp [address] [place] [address] PCP - General Internal Medicine 12/28/23 Chel Montilla MD [address] [place] [address] Specialist Cardiology 02/25/21 Nubia Preston PA-C [address] [place] [address] 64950 Cardiology 05/24/21 01/28/23 Joseph Berg MD [address] [place] [address] Specialist Cardiology 01/24/23 Devika Bashir NP [address] [place] [address] 35095 Cardiology 01/29/23 documented as of this encounter
--- OUTSIDE RECORDS SUMMARY | 2024-10-22 15:28 | XMS_ITS | Encounter Summary ---
Author Organization [facility] Address [address] [place] [address] Care Team Providers Care Signal Technician Name Role Phone Royal Pierre MD Primary Care Provider [phone] Chel Montilla MD Unavailable Nubia Preston PA-C Unavailable Unavailab Joseph Thompson MD Unavailable [phone] Devika Bashir NP Unavailable Unavailable [facility], Pcp Primary Care Provider Unavailabl e Encounter Details Date Type Department Care Team Description 01/20/2022 Hospital Medical Records [address] [place] [address] [facility] Social History Tobacco Use Types [...] on filedocumented in this encounter Care Teams Signal Technician Relationship Specialty Start Date End Date Royal Pierre MD [address] [place] [address] [phone] PCP - General Internal Medicine 07/21/20 12/27/23 [facility], Pcp [address] [place] [address] 25046 PCP - General Internal Medicine 12/28/23 Chel Montilla MD [address] [place] [address] Specialist Cardiology 02/25/21 Nubia Preston PA-C [address] [place] [address] Cardiology 05/24/21 01/28/23 Joseph Berg MD [address] [place] [address] Specialist Cardiology 01/24/23 Devika Bashir NP [address] [place] [address] Cardiology 01/29/23 documented as of this encounter
--- OUTSIDE RECORDS SUMMARY | 2024-10-22 15:28 | XMS_ITS | Encounter Summary ---
Author Organization [facility] Address [address] [place] [address] Care Team Providers Care Machine Guide Base Winder Name Role Phone Anthony Whittaker MD Primary Care Provider Royal Pierre MD Primary Care Provider Chel Montilla MD Unavailable Nubia Preston PA-C Unavailable Unavailab Joseph Thompson MD Unavailable [phone] Devika Bashir NP Unavailable Unavailable Replaced By [facility], Pcp Primary Care Provider Unavailabl e Reason for Visit * Reason Onset Date Comments Call From Office 10/07/2019 Encounter Details Date Type Department Care Team Description 10/07/2019 Telephone Adult [address] [phone] Anthony Whittaker MD [address] [place] [address] [phone] Call From Md Office Social History Tobacco [...] on filedocumented in this encounter Care Teams Machine Guide Base Winder Relationship Specialty Start Date End Date Atnhony Whittaker MD [address] [place] [address]505 PCP - General 10/09/1995 07/20/20 Royal Pierre MD [address] [place] [address] 51507 PCP - General Internal Medicine 07/21/20 12/27/23 Replaced By [facility], Pcp [address] [place] [address] PCP - General Internal Medicine 12/28/23 Chel Montilla MD [address] [place] [address] 95989 Specialist Cardiology 02/25/21 Nubia Preston PA-C [address] [place] [address] 21808 Cardiology 05/24/21 01/28/23 Joseph Berg MD [address] [place] [address] 20070 Specialist Cardiology 01/24/23 Devika Bashir NP [address] [place] [address] 96967 Cardiology 01/29/23 documented as of this encounter
--- OUTSIDE RECORDS SUMMARY | 2024-10-22 15:28 | XMS_ITS | Encounter Summary ---
Author Organization [facility] Address [address] [place] [address] Care Team Providers Care Uniform Patrol Police Officer Name Role Phone Royal Pierre MD Primary Care Provider [phone] Chel Montilla MD Unavailable Nubia Preston PA-C Unavailable Unavailab Joseph Thompson MD Unavailable [phone] Devika Bashir NP Unavailable Unavailable [facility], Pcp Primary Care Provider Unavailabl e Reason for Visit * Reason Onset Date Comments hospital follow up 12/08/2021 Encounter Details Date Type Department Care Team Description 12/08/2021 Telephone Adult Medicine [address] [phone] Royal Pierre MD [address] [place] [address] [phone] hospital follow up Social History Tobacco Use [...] on filedocumented in this encounter Care Teams Uniform Patrol Police Officer Relationship Specialty Start Date End Date Royal Pierre MD [address] [place] [address] PCP - General Internal Medicine 07/21/20 12/27/23 [facility], Pcp [address] [place] [address] 88469 PCP - General Internal Medicine 12/28/23 Chel Montilla MD [address] [place] [address] Specialist Cardiology 02/25/21 Nubia Preston PA-C [address] [place] [address] 33015 Cardiology 05/24/21 01/28/23 Joseph Berg MD [address] [place] [address] 13814 Specialist Cardiology 01/24/23 Devika Bashir NP [address] [place] [address] 76815 Cardiology 01/29/23 documented as of this encounter
--- OUTSIDE RECORDS SUMMARY | 2024-10-22 15:28 | XMS_ITS | Encounter Summary ---
Author Organization [facility] Address [address] [place] [address] Care Team Providers Care Federal Judge Name Role Phone Anthony Whittaker MD Primary Care Provider [phone] Royal Pierre MD Primary Care Provider [phone] Chel Montilla MD Unavailable Nubia Preston PA-C Unavailable Unavailab Joseph Thompson MD Unavailable [phone] Devika Bashir NP Unavailable Unavailable [facility], Pcp Primary Care Provider Unavailabl e Encounter Details Date Type Department Care Team Description 12/18/2019 Bulk Mail Clerk Report Medical Records [address] [place] [address] Husam Guerra MD Social History Tobacco Use [...] on filedocumented in this encounter Care Teams Federal Judge Relationship Specialty Start Date End Date Anthony Whittaker MD [address] [place] [address]20 PCP - General 10/09/1995 07/20/20 Royal Pierre MD [address] [place] [address] [phone] PCP - General Internal Medicine 07/21/20 12/27/23 [facility], Pcp [address] [place] [address] 56736 PCP - General Internal Medicine 12/28/23 Chel Montilla MD [address] [place] [address] Specialist Cardiology 02/25/21 Nubia Preston PA-C [address] [place] [address] 03644 Cardiology 05/24/21 01/28/23 Joseph Berg MD [address] [place] [address] Specialist Cardiology 01/24/23 Devika Bashir NP [address] [place] [address] Cardiology 01/29/23 documented as of this encounter
--- OUTSIDE RECORDS SUMMARY | 2024-10-22 15:28 | XMS_ITS ---
Author Organization [facility] [place] Address [address] [facility] [place] [address] Care Team Providers Care Computer Graphic Artist Name Role Phone Gabby JENSEN, [facility] Primary Care Provider Unav ailable Black, Maria Unavailable [phone] Allergies No Known Allergies REASON FOR VISIT [...] an other tobacco user? No Vital Signs Blood pressure systolic 124 mm Hg 10/08/19 24 Blood pressure diastolic 68 mm Hg 024 Height 5 ft 6 in in 10/08/2023 Weight 158 lbs 10/08/2023 BMI 25.50 kg/m2 10/08/2023 Procedures Procedure Date Ordered Date Performed Result Body Sit e 85572- Debride <25 sq cm 10/08/2023 N/A Encounters Encounter Location Date Provider Diagnosis [facility] [place] [address] [place] [address] 10/08/2023 Maria Black Skin ulcer of toe [...] INSTRUCTIONS.pdf) Pending Test Test Name Order Date 79181- Debride <25 sq cm 10/08/2023 Next Appt [...] of the wound post debridement is stable (55657) Progress Notes * Deacon KEYESB:[birth year] (83 yo M)Acc No.[id number]:10/08/2023 Progress Note Patient:?Deacon Keyes Provider:?Maria Maurer DPM :1940???Age:83 Y???Sex:Male Nate e:10/08/2023 Address:[address] [place], [place] [id number] Pcp:Royal Pierre MD Subjective: * Chief Complaints: * ???Pcp- 06/25/23Open sore - Toe * HPI: ???Skin problems:?Treatments:?Topical abx.? * Medical History:? 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 * Procedure Codes:?30433 ACTIV E WOUND CARE/20 CM OR < [...]
--- OUTSIDE RECORDS SUMMARY | 2024-10-22 15:28 | XMS_ITS | Encounter Summary ---
Author Organization [facility] Address [address] [place] [address] Care Team Providers Care Cashier Gambling Name Role Phone Royal Pierre MD Primary Care Provider [phone] Chel Montilla MD Unavailable Nubia Preston PA-C Unavailable Unavailab Joseph Thompson MD Unavailable [phone] Devika Bashir NP Unavailable Unavailable [facility], Pcp Primary Care Provider Unavailabl e Reason for Visit * Reason Onset Date Comments medication problems 09/01/2022 Questions ab out Carvedilol (coreg) 6.25 Encounter Details Date Type Department Care Team Description 09/01/2022 Telephone Cardio PVCA Diag Testing 101 [address] [facility] [address] [place] [address] [id number] Chel Montilla MD [address] [place] [address] [phone] medication problems (Questions about Carvedilol (coreg) 6.25) [...] - 09/01/2022 11:47 AM EST Silvio from [facility], [address] [place] [address], has questions about Carvedilol (coreg) 6.25. Pls call [phone] documented in this encounter Plan of Treatment Not on file documented as of this encounter Visit Diagnoses Not on filedocumented in this encounter Care Teams Cashier Gambling Relationship Specialty Start Date End Date Royal iPerre MD [address] [place] [address] PCP - General Internal Medicine 07/21/20 12/27/23 [facility], Pcp [address] [place] [address] PCP - General Internal Medicine 12/28/23 Chel Montilla MD [address] [place] [address] Specialist Cardiology 02/25/21 Nubia Preston PA-C [address] [place] [address] Cardiology 05/24/21 01/28/23 Joseph Berg MD [address] [place] [address] Specialist Cardiology 01/24/23 Devika Bashir NP [address] [place] [address] Cardiology 01/29/23 documented as of this encounter
--- OUTSIDE RECORDS SUMMARY | 2024-10-22 15:28 | XMS_ITS | Encounter Summary ---
Author Organization [facility] Address [address] [place] [address] Care Team Providers Care Leadership Development Instructor Name Role Phone Anthony Whittaker MD Primary Care Provider [phone] Royal Pierre MD Primary Care Provider [phone] Chel Montilla MD Unavailable Nubia Preston PA-C Unavailable Unavailab Joseph Thompson MD Unavailable [phone] Devika Bashir NP Unavailable Unavailable [facility], Pcp Primary Care Provider Unavailabl e Encounter Details Date Type Department Care Team Description 04/02/2020 Orders Only Medical Records [address] [place] [address] Reno Marie PA-C [address] [place], [place] [phone] Social History Tobacco Use Types Packs/Day Years [...] on filedocumented in this encounter Care Teams Leadership Development Instructor Relationship Specialty Start Date End Date Anthony Whittaker MD [address] [place] [address] PCP - General 10/09/1995 07/20/20 Royal Pierre MD [address] [place] [address] PCP - General Internal Medicine 07/21/20 12/27/23 [facility], Pcp [address] [place] [address] PCP - General Internal Medicine 12/28/23 Chel Montilla MD [address] [place] [address] Specialist Cardiology 02/25/21 Nubia Preston PA-C [address] [place] [address] Cardiology 05/24/21 01/28/23 Joseph Berg MD [address] [place] [address] Specialist Cardiology 01/24/23 Devika Bashir NP [address] [place] [address] Cardiology 01/29/23 documented as of this encounter
--- OUTSIDE RECORDS SUMMARY | 2024-10-22 15:28 | XMS_ITS | Encounter Summary ---
Author Organization [facility] Address [address] [place] [address] Care Team Providers Care Bundle Cutter Name Role Phone Anthony Whittaker MD Primary Care Provider [phone] Royal Pierre MD Primary Care Provider [phone] Chel Montilla MD Unavailable Nubia Preston PA-C Unavailable Unavailab Joseph Thompson MD Unavailable [phone] Devika Bashir NP Unavailable Unavailable [facility], Pcp Primary Care Provider Unavailabl e Reason for Visit * Reason Onset Date Comments Faxed Refill 03/03/2020 Encounter Details Date Type Department Care Team Description 03/03/2020 Refill Adult Medicine [address] [address] Anthony Whittaker MD [address] [place] [address] Faxed Refill Social History Tobacco Use Types [...] / Plan[place] / Product Type: MEDICARE [id number] documented in this encounter Plan of Treatment Not on file documented as of this encounter Visit Diagnoses Not on filedocumented in this encounter Care Teams Bundle Cutter Relationship Specialty Start Date End Date Anthony Whittaker MD [address] [place] [address] PCP - General 10/09/1995 07/20/20 Royal Pierre MD [address] [place] [address] PCP - General Internal Medicine 07/21/20 12/27/23 [facility], [place] [phone] PCP - General Internal Medicine 12/28/23 Chel Montilla MD [address] [place] [address] Specialist Cardiology 02/25/21 Nubia Preston PA-C [address] [place] [address] Cardiology 05/24/21 01/28/23 Joseph Berg MD [address] [place] [address] Specialist Cardiology 01/24/23 Devika Bashir NP [address] [place] [address]47 Cardiology 01/29/23 documented as of this encounter
--- OUTSIDE RECORDS SUMMARY | 2024-10-22 15:28 | XMS_ITS | Encounter Summary ---
Author Organization [facility] Address [address] [place] [address] Care Team Providers Care Regulatory Affairs Specialist Name Role Phone Royal Pierre MD Primary Care Provider [phone] Chel Montilla MD Unavailable Nubia Preston PA-C Unavailable Unavailab Joseph Thompson MD Unavailable [phone] Devika Bashri NP Unavailable Unavailable [facility], Pcp Primary Care Provider Unavailabl e Encounter Details Date Type Department Care Team Description 01/03/2022 Medical Underwriter Report Medical Records [address] [place] [address] [phone] Social History Tobacco Use Types Packs/Day Years [...] on filedocumented in this encounter Care Teams Regulatory Affairs Specialist Relationship Specialty Start Date End Date Royal Pierre MD [address] [place], [place] [phone] PCP - General Internal Medicine 07/21/20 12/27/23 [facility], Pcp [address] [place] [address] PCP - General Internal Medicine 12/28/23 Chel Montilla MD [address] [place] [address] Specialist Cardiology 02/25/21 Nubia Preston PA-C [address] [place] [address] Cardiology 05/24/21 01/28/23 Joseph Berg MD [address] [place] [address] Specialist Cardiology 01/24/23 Devika Bashir NP [address] [place] [address] Cardiology 01/29/23 documented as of this encounter
--- OUTSIDE RECORDS SUMMARY | 2024-10-22 15:28 | XMS_ITS | Encounter Summary ---
Author Organization [facility] Address [address] [place] [address] Care Team Providers Care Home Care Scheduler Name Role Phone Anthony Whittaker MD Primary Care Provider [phone] Royal Pierre MD Primary Care Provider [phone] Chel Montilla MD Unavailable Nubia Preston PA-C Unavailable Unavailab Joseph Thompson MD Unavailable [phone] Devika Bashri NP Unavailable Unavailable [facility], Pcp Primary Care Provider Unavailabl e Encounter Details Date Type Department Care Team Description 07/11/2019 Business Doc Medical Records [address] [place] [address] Abstract, Provider Social History Tobacco Use Types [...] filedocumented in this encounter Care Teams Home Care Scheduler Relationship Specialty Start Date End Date Anthony Whittaker MD [address] [place] [address] PCP - General 10/09/1995 07/20/20 Royal Pierre MD [address] [place] [address] PCP - General Internal Medicine 07/21/20 12/27/23 [facility], Pcp [address] [place] [address] PCP - General Internal Medicine 12/28/23 Chel Montilla MD [address] [place] [address] Specialist Cardiology 02/25/21 Nubia Preston PA-C [address] [place] [address] Cardiology 05/24/21 01/28/23 Joseph Berg MD [address] [place] [address] Specialist Cardiology 01/24/23 Devika Bashir NP [address] [place] [address] Cardiology 01/29/23 documented as of this encounter
--- OUTSIDE RECORDS SUMMARY | 2024-10-22 15:28 | XMS_ITS | Encounter Summary ---
Author Organization [facility] Address [address] [place] [address] Care Team Providers Care Medical Supply Technician Name Role Phone Royal Pierre MD Primary Care Provider [phone] Chel Montilla MD Unavailable Nubia Preston PA-C Unavailable Unavailab Joseph Thompson MD Unavailable [phone] Devika Bashir NP Unavailable Unavailable [facility], Pcp Primary Care Provider Unavailabl e Encounter Details Date Type Department Care Team Description 08/15/2021 Network/Telecom Engineer Report Medical Records [address] [place] [address] Abstract, Provider Social History Tobacco Use Types [...] on filedocumented in this encounter Care Teams Medical Supply Technician Relationship Specialty Start Date End Date Royal Pierre MD [address] [place] [address] PCP - General Internal Medicine 07/21/20 12/27/23 [facility], Pcp [address] [place] [address] PCP - General Internal Medicine 12/28/23 Chel Montilla MD [address] [place] [address] [phone] Specialist Cardiology 02/25/21 Nubia Preston PA-C [address] [place] [address] Cardiology 05/24/21 01/28/23 Joseph Berg MD [address] [place] [address] Specialist Cardiology 01/24/23 Devika Bashir NP [address] [place] [address] Cardiology 01/29/23 documented as of this encounter
--- OUTSIDE RECORDS SUMMARY | 2024-10-22 15:28 | XMS_ITS | Encounter Summary ---
Author Organization [facility] Address [address] [place] [address] Care Team Providers Care Employment Educational Coord Name Role Phone Royal Pierre MD Primary Care Provider [phone] Chel Montilla MD Unavailable Nubia Preston PA-C Unavailable Unavailab Joseph Thompson MD Unavailable [phone] Devika Bashir NP Unavailable Unavailable [facility], Pcp Primary Care Provider Unavailabl e Reason for Visit * Reason Comments E-prescribe Rx Request Encounter Details Date Type Department Care Team Description 08/29/2021 Refill Adult Medicine [address] [phone] Raya Guillen NP E-prescribe Rx Request Social [...] / Plan[place] / Product Type: MEDICARE [id number] documented in this encounter Plan of Treatment Not on file documented as of this encounter Visit Diagnoses Not on filedocumented in this encounter Care Teams Employment Educational Coord Relationship Specialty Start Date End Date Royal Pierre MD [address] [place] [address] PCP - General Internal Medicine 07/21/20 12/27/23 [facility] [address] [place] [address] PCP - General Internal Medicine 12/28/23 Chel Montilla MD [address] [place] [address] Specialist Cardiology 02/25/21 Nubia Preston PA-C [address] [place] [address] Cardiology 05/24/21 01/28/23 Joseph Berg MD [address] [place] [address] Specialist Cardiology 01/24/23 Devika Bashir NP [address] [place] [address] Cardiology 01/29/23 documented as of this encounter
--- OUTSIDE RECORDS SUMMARY | 2024-10-22 15:28 | XMS_ITS | Encounter Summary ---
Author Organization [facility] Address [address] [place] [address] Care Team Providers Care Silverware Assembler Name Role Phone Royal Pierre MD Primary Care Provider [phone] Chel Montilla MD Unavailable Nubia Preston PA-C Unavailable Unavailab Joseph Thompson MD Unavailable [phone] Devika Bashir NP Unavailable Unavailable [facility], Pcp Primary Care Provider Unavailabl e Encounter Details Date Type Department Care Team Description 05/18/2022 Family Support Specialist Report Medical Records [address] [place] [address] Jocelynn Reese NP Social History Tobacco Use [...] on filedocumented in this encounter Care Teams Silverware Assembler Relationship Specialty Start Date End Date Royal Pierre MD [address] [place] [address] [phone] PCP - General Internal Medicine 07/21/20 12/27/23 [facility], Pcp [address] [place] [address] PCP - General Internal Medicine 12/28/23 Chel Montilla MD [address] [place] [address] [phone] Specialist Cardiology 02/25/21 Nubia Preston PA-C [address] [place] [address] Cardiology 05/24/21 01/28/23 Joseph Berg MD [address] [place], [place] [phone] Specialist Cardiology 01/24/23 Devika Bashir NP [address] [place] [address] Cardiology 01/29/23 documented as of this encounter
--- OUTSIDE RECORDS SUMMARY | 2024-10-22 15:28 | XMS_ITS | Encounter Summary ---
Author Organization [facility] Address [address] [place] [address] Care Team Providers Care Physical Security Specialist Name Role Phone Royal Pierre MD Primary Care Provider [phone] Chel Montilla MD Unavailable Joseph Berg MD Unavailable [phone] Devika Bashir LOGISTICS LEAD Unavailable Unavailable [facility], Pcp Primary Care Provider Unavailabl e Encounter Details Date Type Department Care Team Description 07/03/2023 SCAN Medical Records [address] [place] [address] [facility] Social History Tobacco Use Types Packs/Day [...] on filedocumented in this encounter Care Teams Physical Security Specialist Relationship Specialty Start Date End Date Royal Pierre MD [address] [place] [address] PCP - General Internal Medicine 07/21/20 12/27/23 [facility] Pcp [address] [place] [address] PCP - General Internal Medicine 12/28/23 Chel Montilla MD [address] [place] [address] [phone] Specialist Cardiology 02/25/21 Joseph Berg MD [address] [place] [address] [phone]- Specialist Cardiology 01/24/23 Devika Bashir, AYUSH [address] [place] [address] Cardiology 01/29/23 documented as of this encounter
== END 2024-10-22 13:56 | disposition home or self-care (01) ==
LOC: HO.HMCH 13:21
PROVIDERS: PCP Internal Medicine
DX: I10 Essential (primary) hypertension (principal); M54.9 Dorsalgia, unspecified

== ENCOUNTER → 2024-10-22 13:21 | Outpatient (BNVA) | payer MEDICARE, OTHER, SELFPAY | PROVIDERS: PCP Internal Medicine | DX: I10 Essential (primary) hypertension (principal); M54.9 Dorsalgia, unspecified | CPT/HCPCS: 99212 ==

== ENCOUNTER → 2024-10-28 23:59 | Outpatient (BNV) | payer MEDICARE, OTHER, SELFPAY ==
--- NOTE | 2024-11-03 11:53 | A.OFFVIS_ITS ---
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 Allergies No Known Allergies [No Known Allergies*] Allergy (Verified 10/22/24 13:34) PFS Medical History Pulmonary fibrosis Colonic mass Allergies Dental abscess Dysphagia Elevated PSA Abrasion Bursitis of left shoulder Joint pain Effusion, left knee Prostate nodule Microscopic hematuria Bladder outlet obstruction Pes anserinus bursitis of right knee Effusion, right knee Ventricular tachycardia Ischemic cardiomyopathy Atherosclerotic cardiovascular disease Cardiomyopathy Pacemaker ILD (interstitial lung disease) Pulmonary nodules COPD (chronic obstructive pulmonary disease) Bursitis of right shoulder Medial meniscus tear Osteoarthritis of right knee Surgical History History of carpal tunnel release History of cholecystectomy History of tonsillectomy History of colonoscopy Family History Father No problems noted. Mother No problems noted. Son No problems noted. Social History Household Members: Spouse Housing: House Are you a primary career technical education instructor to a significant other at home: No Do you presently have visiting nurse or other home services: No Alcohol intake: current Alcohol intake frequency: does not drink Alcohol type: beer Comment: once Q 3-6 month glass of wine Patient Tobacco Use Status: Former Tobacco user Tobacco use type: Cigarette Years Smoked: 30 years e-Cigarette/Vaping Use: Never Used Second Hand Smoke Exposure: Yes Advance Directives Date on File: 06/24/23 service: No Current occupational status: retired 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 Cognitive needs: No Hearing needs: Yes Vision needs: Yes Office Procedures Cardiac Device Check Cardiac Device Check Details: Date of service- 10/28/2024; based on impedance data and physiological variables, there is no evidence of worsening congestive heart failure. [id number] Cardiac Device Interrogation, cardio physiologic monitor Procedure code (CPT) selection complete Assessment & Plan Assessment & Plan (1) Presence of implantable cardioverter-defibrillator (ICD): Code(s): Z95.810 - Presence of automatic (implantable) cardiac defibrillator Category: Surgical (2) Ischemic cardiomyopathy: Code(s): I25.5 - Ischemic cardiomyopathy Category: Medical Plan x Coding Level of Care Code Procedure Only Diagnoses Presence of implantable cardioverter-defibrillator (ICD) Z95.810 Ischemic cardiomyopathy I25.5 CPT Codes Cardiac Device Check - Cardiac Device 15: [id number] Cardiac Device Interrogation, cardio physiologic monitor ([id number])
== END ==
PROVIDERS: PCP Internal Medicine; Visit Provider Internal Medicine
DX: I25.5 Ischemic cardiomyopathy (principal); Z95.810 Presence of automatic (implantable) cardiac defibrillator
CPT/HCPCS: 93297

== ENCOUNTER 2024-11-10 12:37 | Outpatient (AMB) | payer MEDICARE, OTHER, SELFPAY ==
[2024-11-10 12:52] VITALS: BP 112/60; PULSE 78; BMI 26.3
--- NOTE | 2024-11-10 12:52 | MHC.OFFVIS ---
Vital Signs 11/10/24 12:52 Height 5 ft 6 in Weight 163 lb BMI 26.3 BP 112/60 Blood Pressure Location Lt brachial Position Sitting Pulse 78 Pulse Source Pulse Oximeter Intake Visit Reasons: 6 mth f/up w/ biotronik ck Allergies No Known Allergies [No Known Allergies*] Allergy (Verified 10/22/24 13:34) Medication List - Last Reconciled 11/10/24 by Joey Flaherty MD alendronate 70 mg PO QWEEK allopurinol 100 mg PO DAILY aspirin 81 mg PO DAILY atorvastatin 40 mg PO BEDTIME cholecalciferol (vitamin D3) 25 mcg PO DAILY dsukbyhyzvs-dirkebbsb-vubcykch 200-62.5-25 mcg (Trelegy Ellipta) 1 inh inhalation DAILY 30 days guaifenesin ER (Mucinex) 1,200 mg PO BID montelukast (Singulair) 10 mg PO BEDTIME 30 days sacubitril-valsartan 49-51 mg (Entresto) 1 tab PO BID 90 days tamsulosin 0.4 mg PO BEDTIME 90 days HPI Comments Details: Deacon returns for follow-up. Previously, patient of [facility] but switched over to us. He has a history of myocardial infarction many years ago with an ischemic cardiomyopathy/large anterior/apical scar. He had a pacemaker due to multiple syncopal episodes. Then it seems that he was noted to have VT episodes on pacemaker and hence required ICD upgrade. No issues in that regard. He was taking amiodarone but not anymore. Otherwise, stroke in 2022. In 2023, stomach upset type symptoms that was followed by a vasovagal episode. However, device interrogation at that time did not show any significant arrhythmias. Telemetry was also unremarkable. Since then, he states he feels good. No new concerns. Exercise The patient engages in daily walking exercises with his dogs, averaging two miles each day. The activity is well tolerated, with occasional discomfort from calluses on the foot. These activities contribute to the patient's active lifestyle and are part of maintaining cardiovascular health. [facility] Medical History Pulmonary fibrosis Colonic mass Allergies Dental abscess Dysphagia Elevated PSA Abrasion Bursitis of left shoulder Joint pain Effusion, left knee Prostate nodule Microscopic hematuria Bladder outlet obstruction Pes anserinus bursitis of right knee Effusion, right knee Ventricular tachycardia Ischemic cardiomyopathy Atherosclerotic cardiovascular disease Cardiomyopathy Pacemaker ILD (interstitial lung disease) Pulmonary nodules COPD (chronic obstructive pulmonary disease) Bursitis of right shoulder Medial meniscus tear Osteoarthritis of right knee Surgical History History of carpal tunnel release History of cholecystectomy History of tonsillectomy History of colonoscopy Family History Father No problems noted. Mother No problems noted. Son No problems noted. Social History Household Members: Spouse Housing: House Are you a primary healthcare account manager to a significant other at home: No Do you presently have visiting nurse or other home services: No Alcohol intake: current Alcohol intake frequency: does not drink Alcohol type: beer Comment: once Q 3-6 month glass of wine Patient Tobacco Use Status: Former Tobacco user Tobacco use type: Cigarette Years Smoked: 30 years e-Cigarette/Vaping Use: Never Used Second Hand Smoke Exposure: Yes Advance Directives Date on File: 06/24/23 service: No Current occupational status: retired 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 Cognitive needs: No Hearing needs: Yes Vision needs: Yes Review of Systems Const Denies weakness ENT Denies dizziness Card Denies chest pain, Denies chest pain with activity, Denies syncope, Denies rapid heart rate, Denies pedal edema, Denies edema, Denies leg edema, Denies lightheadedness, Denies palpitations, Denies dyspnea, Denies dyspnea on exertion and Denies orthopnea Resp Denies cough, Denies dyspnea and Denies dyspnea on exertion GI Denies hematochezia and Denies change in stool character Musc Denies abnormal gait, Denies muscle cramps, Denies muscle weakness, Denies numbness, Denies radiating pain into limb and Denies tingling Neuro Denies abnormal gait, Denies dizziness, Denies syncope, Denies numbness, Denies tingling and Denies weakness Endo Denies palpitations Physical Exam Vital Signs: Last Vital Signs Pulse 78 11/10/24 12:52 BP 112/60 11/10/24 12:52 BMI result Body Mass Index 26.3 Const General: comfortable and no acute distress Orientation/consciousness: patient oriented x3 HEENT Other: Unremarkable Head: Yes normal to inspection Neck Neck: Yes normal visual inspection Chest Chest palpation & inspection: normal inspection of the chest Resp Auscultation: clear to auscultation bilaterally Cardio Palpation: normal PMI Heart sounds: S1 normal heart sound present, S2 normal heart sound present, no gallops, no murmurs and no rubs GI Palpation (GI): Soft to palpation Back/Spine/Pelvis Other: unremarkable Skin General skin exam: no rashes or lesions noted Neuro General: patient oriented x3 Extrem General: Yes normal to inspection Psych Mental Status: mental status grossly normal Office Procedures Cardiac Device Check Cardiac Device Check Details: Pacemaker interrogated today. Dual-chamber device, programmed DDD-CLS mode. Normal lead parameters. Remaining battery capacity 100%. Pacing in the atrium 42%. Pacing in the ventricle 0%. NSVT 17 beats and another episode of 20 beats this month. Overall, normal device function. [id number] Cardiac Device Check, dual lead implantable defibrillator Procedure code (CPT) selection complete Assessment & Plan Assessment & Plan (1) Atherosclerotic cardiovascular disease: Code(s): I25.10 - Atherosclerotic heart disease of [place] coronary artery without angina pectoris Category: Medical Plan: Had coronary disease in , anterior MD complicated by cardiac arrest. Single-vessel LAD on catheterization then. No PCI performed. Clinically, he does not really have any angina. On aspirin and statins. LDL levels are well controlled. Nuclear stress test from [facility], 01/2023, with report of LAD territory infarct with mild eric-infarct ischemia. (2) Ischemic cardiomyopathy: Code(s): I25.5 - Ischemic cardiomyopathy Category: Medical Plan: Echocardiogram with LVEF 50-55%. Wall motion abnormalities due to underlying coronary disease. Clinically, no heart failure symptoms or signs. He is on Entresto but not on beta-blockers. He has had issues with bradycardia but that should not be a problem now that he has an ICD. He does however, have lowish blood pressure. (3) Ventricular tachycardia: Code(s): I47.20 - Ventricular tachycardia, unspecified Category: Medical Plan: Per prior cardiology note, had a long run of VT, self-terminated. s/p ICD. Was on amiodarone but has been stopped. He has findings of marked emphysematous changes with fibrotic changes as well as bronchiectasis on CT scan. Device interrogation does show brief runs of NSVT but nothing prolonged to frequent. We can try to start beta-blockers and cut back on the Entresto dose so that the blood pressure does not go too low. (4) Presence of implantable cardioverter-defibrillator (ICD): Code(s): Z95.810 - Presence of automatic (implantable) cardiac defibrillator Category: Surgical Plan: Can be followed on remote monitoring. In the past, it seems that he actually had sick sinus syndrome and then had a pacemaker which was then upgraded to ICD based on VT episodes. (5) CVA (cerebral vascular accident): Comment: Middle cerebral artery ischemic Code(s): I63.9 - Cerebral infarction, unspecified Category: Medical Plan: Per CT, acute infarct in the right MCA territory. Atheromatous plaque involving both carotid bifurcations/internal carotid arteries. On aspirin/statins. (6) Vasovagal syncope: Code(s): R55 - Syncope and collapse Category: Medical Plan: Per prior cardiology records, he has had multiple syncopal events, suspect to be from some combination of vasovagal/orthostatic syncope. Recent hospital events noted. However, he is back to normal now. Plan Discussion Notes During the visit, I discussed the recurrence of cardiac arrhythmia events with the patient. Explained the fact that due to lung CT scan findings, would rather avoid amiodarone. I discussed the risks and benefits of adjusting Entresto along with metoprolol reintroduction. The patient agreed and understood the treatment rationale, and confirmed consent to this plan. Additional instructions on medication adherence and symptom monitoring were provided to ensure prompt communication of any changes. Patient was informed and verbally consented to the use of an ambient scribe for clinic note documentation during this visit. Medications: New sacubitril-valsartan 24-26 mg (Entresto) 1 tab PO BID 90 days 180 tabs 1RF metoprolol succinate ER (Toprol XL) 25 mg PO DAILY 90 tabs 1RF Discontinued sacubitril-valsartan 49-51 mg (Entresto) Discontinued Reason: Doctor's Order 1 tab PO BID 90 days 180 tabs 0RF Patient Instructions: - Take metoprolol as prescribed. Adjust Entresto dosing per prescription. - Continue your current level of exercise but monitor for increased fatigue or symptoms. - Monitor for any new or worsening symptoms and inform us promptly. - Regularly attend follow-up appointments for monitoring and medication adjustment. - Contact us immediately if you experience significant or new symptoms, such as dizziness or noticeable heart palpitations. Coding Level of Care Code Est Pt Level 4 (78660) Complex EM visit Add On G2211 Diagnoses Atherosclerotic cardiovascular disease I25.10 Ischemic cardiomyopathy I25.5 Ventricular tachycardia I47.20 Presence of implantable cardioverter-defibrillator (ICD) Z95.810 CVA (cerebral vascular accident) I63.9 Vasovagal syncope R55 CPT Codes Cardiac Device Check - Cardiac Device 5: [id number] Cardiac Device Check, dual lead implantable defibrillator ([id number])
--- OUTSIDE RECORDS SUMMARY | 2024-11-10 15:00 | XMS_ITS | Encounter Summary ---
Author Organization [facility] Address [address] [place] [address] Care Team Providers Care Foil Cutter Name Role Phone Anthony Whittaker MD Primary Care Provider [phone] Royal Pierre MD Primary Care Provider [phone] Chel Montilla MD Unavailable Nubia Preston PA-C Unavailable Unavailab Joseph Thompson MD Unavailable [phone] Devika Bashir NP Unavailable Unavailable [facility], Pcp Primary Care Provider Unavailabl e Encounter Details Date Type Department Care Team Description 11/22/2015 Spool Sander Report Medical Records [address] [place] [phone] Ken Allen MD Social History Tobacco Use [...] on filedocumented in this encounter Care Teams Foil Cutter Relationship Specialty Start Date End Date Anthony Whittaker MD [address] [place] [address] [phone] PCP - General 10/09/1995 07/20/20 Royal Pierre MD [address] [place] [address] PCP - General Internal Medicine 1/6/21 6/13/24 [facility], Pcp [address] [phone] PCP - General Internal Medicine 12/28/23 Chel Montilla MD [address] [place] [address] Specialist Cardiology 02/25/21 Nubia Preston PA-C [address] [place] [address] Cardiology 05/24/21 01/28/23 Joseph Berg MD [address] [place] [address] Specialist Cardiology 01/24/23 Devika Bashir NP [address] [place] [address] Cardiology 01/29/23 documented as of this encounter
--- OUTSIDE RECORDS SUMMARY | 2024-11-10 15:00 | XMS_ITS | Encounter Summary ---
Author Organization [facility] Address [address] [place] [address] Care Team Providers Care Medicare Compliance Auditor Name Role Phone Anthony Whittaker MD Primary Care Provider Royal Pierre MD Primary Care Provider [phone] Chel Montilla MD Unavailable Nubia Preston PA-C Unavailable Unavailab Joseph Thompson MD Unavailable [phone] Devika Bashir NP Unavailable Unavailable [facility], Pcp Primary Care Provider Unavailabl e Encounter Details Date Type Department Care Team Description 06/12/2018 Jockey Room Custodian Report Medical Records [address] [place] [address] [facility] Social History Tobacco Use Types Packs/Day [...] on filedocumented in this encounter Care Teams Medicare Compliance Auditor Relationship Specialty Start Date End Date Anthony Whittaker MD [address] [place] [address] PCP - General 10/09/1995 07/20/20 Royal Pierre MD [address] [place] [address] PCP - General Internal Medicine 07/21/20 12/27/23 [facility], Pcp [address] [place] [address] PCP - General Internal Medicine 12/28/23 Chel Montilla MD [address] [place] [address] Specialist Cardiology 02/25/21 Nubia Preston PA-C [address] [place] [address] Cardiology 05/24/21 01/28/23 Joseph Berg MD [address] [place] [address] Specialist Cardiology 01/24/23 Devika Bashir NP [address] [place] [address] Cardiology 01/29/23 documented as of this encounter
--- OUTSIDE RECORDS SUMMARY | 2024-11-10 15:00 | XMS_ITS | Encounter Summary ---
Author Organization [facility] Address [address] [place] [address] Care Team Providers Care Wildlife Refuge Manager Name Role Phone Royal Pierre MD Primary Care Provider [phone] Chel Montilla MD Unavailable Nubia Preston PA-C Unavailable Unavailab Joseph Thompson MD Unavailable [phone] Devika Bashir NP Unavailable Unavailable [facility], Pcp Primary Care Provider Unavailabl e Encounter Details Date Type Department Care Team Description 07/05/2021 Skilled Laborer Report Medical Records [address] [place] [address] [facility] Social History Tobacco Use Types [...] on filedocumented in this encounter Care Teams Wildlife Refuge Manager Relationship Specialty Start Date End Date Royal Pierre MD [address] [place] [address] [phone] PCP - General Internal Medicine 07/21/20 12/27/23 [facility], Pcp [address] [place] [address] PCP - General Internal Medicine 12/28/23 Chel Montilla MD [address] [place] [address] [phone] Specialist Cardiology 02/25/21 Nubia Preston PA-C [address] [place] [address] Cardiology 05/24/21 01/28/23 Joseph Berg MD [address] [place] [address] Specialist Cardiology 01/24/23 Devika Bashir NP [address] [place] [address] Cardiology 01/29/23 documented as of this encounter
--- OUTSIDE RECORDS SUMMARY | 2024-11-10 15:00 | XMS_ITS | Encounter Summary ---
Author Organization [facility] Address [address] [place] [address] Care Team Providers Care Diamond Cleaner Name Role Phone Anthony Whittaker MD Primary Care Provider [phone] Royal Pierre MD Primary Care Provider [phone] Chel Montilla MD Unavailable Nubia Preston PA-C Unavailable Unavailab Joseph Thompson MD Unavailable [phone] Devika Bashir NP Unavailable Unavailable [facility], Pcp Primary Care Provider Unavailabl e Encounter Details Date Type Department Care Team Description 04/29/2018 Museum Tour Guide Report Medical Records [address] [place] [phone] Chel Montilla MD [address] [place] [address] [phone] Social History Tobacco Use Types Packs/Day Years [...] on filedocumented in this encounter Care Teams Diamond Cleaner Relationship Specialty Start Date End Date Anthony Whittaker MD [address] [place] [address] [phone] PCP - General 10/09/1995 07/20/20 Royal Pierre MD [address] [place] [address] PCP - General Internal Medicine 07/21/20 12/27/23 [facility], Pcp [address] [place] [address] PCP - General Internal Medicine 12/28/23 Chel Montilla MD [address] [place] [address] Specialist Cardiology 02/25/21 Nubia Preston PA-C [address] [place] [address] Cardiology 05/24/21 01/28/23 Joseph Berg MD [address] [place] [address] Specialist Cardiology 01/24/23 Devika Basihr NP [address] [place], [place] [phone] Cardiology 01/29/23 documented as of this encounter
--- OUTSIDE RECORDS SUMMARY | 2024-11-10 15:00 | XMS_ITS | Encounter Summary ---
Author Organization [facility] Address [address] [place] [address] Care Team Providers Care Roll Trucker Name Role Phone Anthony Whittaker MD Primary Care Provider [phone] Royal Pierre MD Primary Care Provider [phone] Chel Montilla MD Unavailable Nubia Preston PA-C Unavailable Unavailab Joseph Thompson MD Unavailable [phone] Devika Bashir NP Unavailable Unavailable [facility], Pcp Primary Care Provider Unavailabl e Encounter Details Date Type Department Care Team Description 11/05/2018 Enterprise Software Engineer Report Medical Records [address] [place] [phone] Chel Montilla MD [address] [place] [address] [phone] Social History Tobacco Use Types Packs/Day Years [...] filedocumented in this encounter Care Teams Roll Trucker Relationship Specialty Start Date End Date Anthony Whittaker MD [address] [place] [address] [phone] PCP - General 10/09/1995 07/20/20 Royal Pierre MD [address] [place] [address] PCP - General Internal Medicine 07/21/20 12/27/23 [facility], Pcp [address] [place] [address] PCP - General Internal Medicine 12/28/23 Chel Montilla MD [address] [place] [address] Specialist Cardiology 02/25/21 Nubia Preston PA-C [address] [place] [address] Cardiology 05/24/21 01/28/23 Joseph Berg MD [address] [place] [address] Specialist Cardiology 01/24/23 Devika Bashir NP [address] [place], [place] [phone] Cardiology 01/29/23 documented as of this encounter
--- OUTSIDE RECORDS SUMMARY | 2024-11-10 15:00 | XMS_ITS | Encounter Summary ---
Author Organization [facility] Address [address] [place] [address] Care Team Providers Care Automotive Parts Person Name Role Phone Anthony Whittaker MD Primary Care Provider Royal Pierre MD Primary Care Provider [phone] Chel Montilla MD Unavailable Nubia Preston PA-C Unavailable Unavailab Joseph Thompson MD Unavailable [phone] Devika Bashir NP Unavailable Unavailable [facility], Pcp Primary Care Provider Unavailabl e Reason for Visit * Reason Onset Date Comments Laryngitis 02/12/2014 Encounter Details Date Type Department Care Team Description 02/12/2014 Telephone Adult Medicine [address] [phone] Anthony Whittaker MD [address] [place] [address] 1947[address] Laryngitis Social History Tobacco Use Types Packs/Day [...] / Plan: [place] / Product Type: MEDICARE [id number] documented in this encounter Plan of Treatment Not on file documented as of this encounter Visit Diagnoses Not on filedocumented in this encounter Care Teams Automotive Parts Person Relationship Specialty Start Date End Date Anthony Whittaker MD [address] [place] [address] PCP - General 10/09/1995 07/20/20 Royal Pierre MD [address] [place] [address] 39165 PCP - General Internal Medicine 07/21/20 12/27/23 [facility], Pcp [address] [place] [address] 36182 PCP - General Internal Medicine 12/28/23 Chel Montilla MD [address] [place] [address] Specialist Cardiology 02/25/21 Nubia Preston PA-C [address] [place] [address] Cardiology 05/24/21 01/28/23 Joseph Berg MD [address] [place] [address] Specialist Cardiology 01/24/23 Devika Bashir NP [address] [place], [place] [phone] Cardiology 01/29/23 documented as of this encounter
--- OUTSIDE RECORDS SUMMARY | 2024-11-10 15:00 | XMS_ITS | Encounter Summary ---
Author Organization [facility] Address [address] [place] [address] Care Team Providers Care Information Technology Officer Name Role Phone Anthony Whittaker MD Primary Care Provider [phone] Royal Pierre MD Primary Care Provider [phone] Chel Montilla MD Unavailable Nubia Preston PA-C Unavailable Unavailab Joseph Thompson MD Unavailable [phone] Devika Bashir NP Unavailable Unavailable [facility], Pcp Primary Care Provider Unavailabl e Encounter Details Date Type Department Care Team Description 05/13/2018 Registered Art Therapist Report Medical Records [address] [place] [address] Juice Aguilera PA-C [address] [place] [address] Social History Tobacco Use Types Packs/Day Years [...] in this encounter Care Teams Information Technology Officer Relationship Specialty Start Date End Date Anthony Whittaker MD [address] [place] [address]179 PCP - General 10/09/1995 07/20/20 Royal Pierre MD [address] [place] [address] PCP - General Internal Medicine 07/21/20 12/27/23 On License [facility], Pcp [address] [place] [address] PCP - General Internal Medicine 12/28/23 Chel Montilla MD [address] [place] [address] Specialist Cardiology 02/25/21 Nubia Preston PA-C [address] [place] [address] Cardiology 05/24/21 01/28/23 Joseph Berg MD [address] [place] [address] Specialist Cardiology 01/24/23 Devika Bashir NP [address] [place] [address] Cardiology 01/29/23 documented as of this encounter
--- OUTSIDE RECORDS SUMMARY | 2024-11-10 15:00 | XMS_ITS | Encounter Summary ---
Author Organization [facility] Address [address] [place] [address] Care Team Providers Care Computer Systems Software Architect Name Role Phone Anthony Whittaker MD Primary Care Provider [phone] Royal Pierre MD Primary Care Provider [phone] Chel Montilla MD Unavailable Nubia Preston PA-C Unavailable Unavailab Joseph Thompson MD Unavailable [phone] Devika Bashir NP Unavailable Unavailable [facility], Pcp Primary Care Provider Unavailabl e Encounter Details Date Type Department Care Team Description 10/15/2015 Release of Information Medical Records [address] [place] [id number] Abstract, Provider Social History Tobacco Use Types [...] filedocumented in this encounter Care Teams Computer Systems Software Architect Relationship Specialty Start Date End Date Anthony Whittaker MD [address] [place] [address] [phone] PCP - General 10/09/1995 07/20/20 Royal Pierre MD [address] [place] [address] PCP - General Internal Medicine 07/21/20 12/27/23 [facility], Pcp [address] [place] [address] PCP - General Internal Medicine 12/28/23 Chel Montilla MD [address] [place] [address] Specialist Cardiology 02/25/21 Nubia Preston PA-C [address] [place] [address] Cardiology 05/24/21 01/28/23 Joseph Berg MD [address] [place] [address] Specialist Cardiology 01/24/23 Devika Bashir NP [address] [place] [address] Cardiology 01/29/23 documented as of this encounter
--- OUTSIDE RECORDS SUMMARY | 2024-11-10 15:00 | XMS_ITS | Encounter Summary ---
Author Organization [facility] Address [address] [place] [address] Care Team Providers Care Wellness Director Name Role Phone Anthony Whittaker MD Primary Care Provider [phone] Royal Pierre MD Primary Care Provider [phone] Chel Montilla MD Unavailable Nubia Preston PA-C Unavailable Unavailab Joseph Thompson MD Unavailable [phone] Devika Bashir NP Unavailable Unavailable [facility], Pcp Primary Care Provider Unavailabl e Encounter Details Date Type Department Care Team Description 03/12/2014 Release of Information Medical Records [address] [place] [address] Abstract, Provider Social History Tobacco Use Types [...] on filedocumented in this encounter Care Teams Wellness Director Relationship Specialty Start Date End Date Anthony Whittaker MD [address] [place] [address] [phone] PCP - General 10/09/1995 07/20/20 Royal Pierre MD [address] [place] [address] PCP - General Internal Medicine 07/21/20 12/27/23 [facility], Pcp [address] [place] [address] PCP - General Internal Medicine 12/28/23 Chel Montilla MD [address] [place] [address] Specialist Cardiology 02/25/21 Nubia Preston PA-C [address] [place] [address] Cardiology 05/24/21 01/28/23 Joseph Berg MD [address] [place] [address] Specialist Cardiology 01/24/23 Devika Bashir NP [address] [place] [address] Cardiology 01/29/23 documented as of this encounter
--- OUTSIDE RECORDS SUMMARY | 2024-11-10 15:00 | XMS_ITS | Encounter Summary ---
Author Organization [facility] Address [address] [place] [address] Care Team Providers Care Sap Consultant Name Role Phone Royal Pierre MD Primary Care Provider [phone] Chel Montilla MD Unavailable Nubia Preston PA-C Unavailable Unavailab Joseph Thompson MD Unavailable Devika Bashir NP Unavailable Unavailable [facility], Pcp Primary Care Provider Unavailabl e Encounter Details Date Type Department Care Team Description 05/14/2021 Hospital Medical Records [address] [place] [address] Social History Tobacco Use Types Packs/Day Years [...] on filedocumented in this encounter Care Teams Sap Consultant Relationship Specialty Start Date End Date Royal Pierre MD [address] [place] [address] PCP - General Internal Medicine 07/21/20 12/27/23 [facility], Pcp [address] [place] [address] PCP - General Internal Medicine 12/28/23 Chel Montilla MD [address] [place] [address] Specialist Cardiology 02/25/21 Nubia Preston PA-C [address] [place] [address] Cardiology 05/24/21 01/28/23 Joseph Berg MD [address] [place] [address] Specialist Cardiology 01/24/23 Devika Bashir NP [address] [place] [address] Cardiology 01/29/23 documented as of this encounter
--- OUTSIDE RECORDS SUMMARY | 2024-11-10 15:00 | XMS_ITS | Encounter Summary ---
Author Organization [facility] Address [address] [place] [address] Care Team Providers Care Parallel Computing Software Engineer Name Role Phone Royal Pierre MD Primary Care Provider [phone] Chel Montilla MD Unavailable Nubia Preston PA-C Unavailable Unavailab Joseph Thompson MD Unavailable [phone] Devika Bashir NP Unavailable Unavailable [facility], Pcp Primary Care Provider Unavailabl e Encounter Details Date Type Department Care Team Description 05/14/2021 SCAN Medical Records [address] [place] [address] Abstract, Provider Social History Tobacco Use Types [...] on filedocumented in this encounter Care Teams Parallel Computing Software Engineer Relationship Specialty Start Date End Date Royal Pierre MD [address] [place] [address] PCP - General Internal Medicine 07/21/20 12/27/23 [facility], Pcp [address] [place] [address] PCP - General Internal Medicine 12/28/23 Chel Montilla MD [address] [place] [address] Specialist Cardiology 02/25/21 Nubia Preston PA-C [address] [place] [address] Cardiology 05/24/21 01/28/23 Joseph Berg MD [address] [place] [address] Specialist Cardiology 01/24/23 Devika Bashir, AYUSH [address] [place] [address] Cardiology 01/29/23 documented as of this encounter
--- OUTSIDE RECORDS SUMMARY | 2024-11-10 15:00 | XMS_ITS | Encounter Summary ---
Author Organization [facility] Address [address] [place] [address] Care Team Providers Care Manager Molecular Name Role Phone Royal Pierre MD Primary Care Provider [phone] Chel Montilla MD Unavailable Nubia Preston PA-C Unavailable Unavailab Joseph Thompson MD Unavailable [phone] Devika Bashir NP Unavailable Unavailable [facility], Pcp Primary Care Provider Unavailabl e Encounter Details Date Type Department Care Team Description 08/05/2021 Agile Tester Report Medical Records [address] [place] [address] Ken Allen MD Social History Tobacco Use [...] filedocumented in this encounter Care Teams Manager Molecular Relationship Specialty Start Date End Date Royal Pierre MD [address] [place] [address] PCP - General Internal Medicine 07/21/20 12/27/23 [facility], Pcp [address] [place] [address] PCP - General Internal Medicine 12/28/23 Chel Montilla MD [address] [place] [address] [phone] Specialist Cardiology 02/25/21 Nubia Preston PA-C [address] [place] [address] Cardiology 05/24/21 01/28/23 Joseph Berg MD [address] [place], [place] [phone] Specialist Cardiology 01/24/23 Devika Bashir NP [address] [place] [address] Cardiology 01/29/23 documented as of this encounter
--- OUTSIDE RECORDS SUMMARY | 2024-11-10 15:00 | XMS_ITS | Encounter Summary ---
Author Organization [facility] Address [address] [place] [address] Care Team Providers Care Base Loader Name Role Phone Anthony Whittaker MD Primary Care Provider [phone] Royal Pierre MD Primary Care Provider [phone] Chel Montilla MD Unavailable Nubia Preston PA-C Unavailable Unavailab Joseph Thompson MD Unavailable [phone] Devika Bashir NP Unavailable Unavailable [facility], Pcp Primary Care Provider Unavailabl e Encounter Details Date Type Department Care Team Description 06/04/2015 Business Doc Medical Records [address] [place] [address] Abstract, Provider Social History Tobacco Use Types [...] on filedocumented in this encounter Care Teams Base Loader Relationship Specialty Start Date End Date Anthony Whittaker MD [address] [place] [address] [phone] PCP - General 10/09/1995 07/20/20 Royal Pierre MD [address] [place] [address] PCP - General Internal Medicine 07/21/20 12/27/23 [facility], Pcp [address] [place] [address] PCP - General Internal Medicine 12/28/23 Chel Montilla MD [address] [place] [address] Specialist Cardiology 02/25/21 Nubia Preston PA-C [address] [place] [address] Cardiology 05/24/21 01/28/23 Joseph Berg MD [address] [place] [address] Specialist Cardiology 01/24/23 Devika Bashir NP [address] [place] [address] Cardiology 01/29/23 documented as of this encounter
--- OUTSIDE RECORDS SUMMARY | 2024-11-10 15:00 | XMS_ITS ---
Author Organization [facility] miguel [place] Address [address] [facility] [place] [address] Care Team Providers Care Ticket Sales Supervisor Name Role Phone Gabby JENSEN, Royal Contreras Primary Care Provider Unav ailable Erasto, Maria Unavailable [phone] Encounters Encounter Location Date Provider Diagnosis [facility] [address] [place] [address] 08/06/2023 Maria Maurer Plan Of Treatment No Information Progress Notes * Deacon KEYES JrDOB:[birth year] (84 yo M)Acc No.[id number]:08/06/2023 Progress Note Patient:?Deacon KEYES r Provider:?Maria Maurer DPM :1940???Age:82 Y???Sex:Male Nate e:08/06/2023 Address:[address] [place] [address] [facility] [id number] Pcp:Royal Pierre MD Subjective: * Chief Complaints: * ??? * Medical History:? Objective: * Vitals:? Assessment: Plan: * Treatment: * Images: * The named appointment provid er may or may not be the originator of this progress note, and it is not deemed complete until electronically signed by the appointment provider. Sign off status: Pending * Provider:?Maria Maurer DPM Date:?2023 Generated for Printi dewey/Fapatog/eTransmitting on:?11/10/2024 03:00 PM EDT
--- OUTSIDE RECORDS SUMMARY | 2024-11-10 15:01 | XMS_ITS | Encounter Summary ---
Author Organization [facility] Address [address] [place] [address] Care Team Providers Care Agricultural Production Engineer Name Role Phone Anthony Whittaker MD Primary Care Provider [phone] Royal Pierre MD Primary Care Provider [phone] Chel Montilla MD Unavailable Nubia Preston PA-C Unavailable Unavailab Joseph Thompson MD Unavailable [phone] Devika Bashir NP Unavailable Unavailable [facility], Pcp Primary Care Provider Unavailabl e Encounter Details Date Type Department Care Team Description 07/17/2018 Insurance Job Titles Report Medical Records [address] [place] [address] [facility] Social History Tobacco Use Types Packs/Day [...] filedocumented in this encounter Care Teams Agricultural Production Engineer Relationship Specialty Start Date End Date Anthony Whittaker MD [address] [place] [address] PCP - General 10/09/1995 07/20/20 Royal Pierre MD [address] [place] [address] PCP - General Internal Medicine 07/21/20 12/27/23 [facility], Pcp [address] [place] [address] PCP - General Internal Medicine 12/28/23 Chel Montilla MD [address] [place] [address] Specialist Cardiology 02/25/21 Nubia Preston PA-C [address] [place] [address] Cardiology 05/24/21 01/28/23 Joseph Berg MD [address] [place] [address] Specialist Cardiology 01/24/23 Devika Bashir NP [address] [place] [address] Cardiology 01/29/23 documented as of this encounter
--- OUTSIDE RECORDS SUMMARY | 2024-11-10 15:01 | XMS_ITS | Patient Health Record ---
Author Organization [facility] miguel [place] Address [address] [facility] [place] [address] Care Team Providers Care Retail Brand Ambassador Name Role Phone Gabby JENSEN, Richardva Ben Primary Care Provider Unav ailable Black, Maria Unavailable [phone] Allergies No Known Allergies Reason For Referral [...] Status Risk Notes Problem Ulcer of toe (395717298 ) Non-pressure chronic ulcer of other part of left foot limited to breakdown of skin (L97.521) Active confirmed Problem Ulcer of toe (271041987 ) Non-pressure chronic ulcer of other part of right foot limited to breakdown of skin (L97.511) Active confirmed Problem Ulcer of toe of left foot (disorder) (027854159 20739018) Skin ulcer of toe of left foot, limited to breakdown of skin (L97.521) Active confirmed Nonapplicable Plan Of Treatment Pending Test Test Name Order Date [id number] NAIL, 6 OR MORE 01/25/2023 [id number] NAIL, 6 OR MORE 09/20/2023 [id number] Plate 09/20/2023 [id number] Plate 02/13/2022 52231-Txhxajel Plate 01/11/2023 [id number] Plate Each Additional 07/2021 05098- Debride <25 sq cm 01/25/2023 36220- Debride <25 sq cm 03/02/2022 10035- Debride <25 sq cm 10/08/2023 Insurance Providers Payer Name Payer Address Payer Phone Subscriber Number Group Number Insured Name Patient Relationship to Insured Coverage Start Date Coverage End Date Medicare National Govt Sv[employer] [address] [place] [address] [id number] Deacon Keyes Self - patient is the insured [facility] [address] [place] [phone] [id number] Deacon Keyes Self - patient is the insured Medical (General) History Medical History History ICD Code Cancer Gout Measles Chicken pox acute Stroke Surgical History Surgery Date(Month/Year) pacemaker 2021 [place] History Reason Date([place] [facility] [place]
--- OUTSIDE RECORDS SUMMARY | 2024-11-10 15:01 | XMS_ITS | Encounter Summary ---
Author Organization [facility] Address [address] [place] [address] Care Team Providers Care Safe And Vault Mechanic Name Role Phone Anthony Whittaker MD Primary Care Provider [phone] Royal Pierre MD Primary Care Provider Chel Montilla MD Unavailable Nubia Preston PA-C Unavailable Unavailab Joseph Thompson MD Unavailable [phone] Devika Bashir NP Unavailable Unavailable [facility], Pcp Primary Care Provider Unavailabl e Reason for Visit * Reason Comments E-prescribe Rx Request Encounter Details Date Type Department Care Team Description 07/05/2016 Refill Adult Medicine [address] [phone] Reno Marie PA-C [address] [place] [address] [phone] E-prescribe Rx Request Social History Tobacco Use [...] NO Patients current insurance carrier is: Payor: [facility]/PPO POS / Plan: PPO $0 [employer] [id number] / Product Type: PPO [id number] documented in this encounter Plan of Treatment Not on file documented as of this encounter Visit Diagnoses Not on filedocumented in this encounter Care Teams Safe And Vault Mechanic Relationship Specialty Start Date End Date Anthony Whitatker MD [address] [place] [address] PCP - General 10/09/1995 07/20/20 Royal Pierre MD [address] [place] [address] PCP - General Internal Medicine 07/21/20 12/27/23 [place] [address] PCP - General Internal Medicine 12/28/23 Chel Montilla MD [address] [place] [address] Specialist Cardiology 02/25/21 Nubia Preston PA-C [address] [place] [address] Cardiology 05/24/21 01/28/23 Joseph Berg MD [address] [place] [address] Specialist Cardiology 01/24/23 Devika Bashir, AYUSH [address] [place] [address] Cardiology 01/29/23 documented as of this encounter
--- OUTSIDE RECORDS SUMMARY | 2024-11-10 15:01 | XMS_ITS | Encounter Summary ---
Author Organization [facility] Address [address] [place] [address] Care Team Providers Care Buoy Tender Name Role Phone Royal Pierre MD Primary Care Provider [phone] Chel Montilla MD Unavailable Joseph Berg MD Unavailable [phone] Devika Bashir NP Unavailable [facility]available [facility], Pcp Primary Care Provider Unavailabl e Reason for Visit * Reason Onset Date Comments Medical Records 06/28/2023 Encounter Details Date Type Department Care Team Description 06/28/2023 Telephone Cardio PVC POC [address] [facility] [address] [place] [address] Chel Montilla MD [address] [place] [address] [phone] Medical Records Social History Tobacco Use Types [...] Medical Records Request Deacon was discharged from [facility] on 06/25/23. Can you please get records prior to his 2023 hospital follow up appointment? Thanks. documented in this encounter Plan of Treatment Not on file documented as of this encounter Visit Diagnoses Not on filedocumented in this encounter Care Teams Buoy Tender Relationship Specialty Start Date End Date Royal Pierre MD [address] [place] [address] PCP - General Internal Medicine 07/21/20 12/27/23 [facility], Pcp [address] [place], [place] [phone] PCP - General Internal Medicine 12/28/23 Chel Montilla MD [address] [place] [address] Specialist Cardiology 02/25/21 Joseph Berg MD [address] [place] [address] Specialist Cardiology 01/24/23 Devika Bashir NP [address] [place], [place] [phone] Cardiology 01/29/23 documented as of this encounter
--- OUTSIDE RECORDS SUMMARY | 2024-11-10 15:01 | XMS_ITS | Encounter Summary ---
Author Organization [facility] Address [address] [place] [address] Care Team Providers Care Electronic Bench Technician Name Role Phone Anthony Whittaker MD Primary Care Provider [phone] Royal Pierre MD Primary Care Provider [phone] Chel Montilla MD Unavailable Nubia Preston PA-C Unavailable Unavailab Joseph Thompson MD Unavailable [phone] Devika Bashir NP Unavailable Unavailable [facility], Pcp Primary Care Provider Unavailabl e Encounter Details Date Type Department Care Team Description 07/24/2013 Wool Supplier Report Medical Records [address] [place] [address] Lee Gil MD Social History Tobacco Use [...] on filedocumented in this encounter Care Teams Electronic Bench Technician Relationship Specialty Start Date End Date Anthony Whittaker MD [address] [place] [address] [phone] PCP - General 10/09/1995 07/20/20 Royal Pierre MD [address] [place] [address] [phone] PCP - General Internal Medicine 07/21/20 12/27/23 [facility], Pcp [address] [place] [address] PCP - General Internal Medicine 12/28/23 Chel Montilla MD [address] [place] [address] Specialist Cardiology 02/25/21 Nubia Preston PA-C [address] [place] [address] Cardiology 05/24/21 01/28/23 Joseph Berg MD [address] [place] [address] Specialist Cardiology 01/24/23 Devika Bashir NP [address] [place] [address] Cardiology 01/29/23 documented as of this encounter
--- OUTSIDE RECORDS SUMMARY | 2024-11-10 15:01 | XMS_ITS | Encounter Summary ---
Author Organization [facility] Address [address] [place] [address] Care Team Providers Care Director Of Casework Department Name Role Phone Royal Pierre MD Primary Care Provider [phone] Chel Montilla MD Unavailable Joseph Berg MD Unavailable [phone] Devika Bashir PUBLIC RELATIONS ASSISTANT Unavailable Unavailable [facility], Pcp Primary Care Provider Unavailabl e Encounter Details Date Type Department Care Team Description 06/24/2023 Shredder Tender Peat Report Medical Records [address] [place] [address] [facility] Social History Tobacco Use Types Packs/Day [...] in this encounter Care Teams Director Of Casework Department Relationship Specialty Start Date End Date Royal Pierre MD [address] [place] [address] [phone] PCP - General Internal Medicine 07/21/20 12/27/23 [facility], Pcp [address] [place] [address] PCP - General Internal Medicine 12/28/23 Chel Montilla MD [address] [place] [address] [phone] Specialist Cardiology 02/25/21 Joseph Berg MD [address] [place] [address] Specialist Cardiology 01/24/23 Devika Bashir NP [address] [place] [address] Cardiology 01/29/23 documented as of this encounter
--- OUTSIDE RECORDS SUMMARY | 2024-11-10 15:01 | XMS_ITS | Encounter Summary ---
Author Organization [facility] Address [address] [place] [address] Care Team Providers Care Concrete Smoother Name Role Phone Royal Pierre MD Primary Care Provider Chel Montilla MD Unavailable Joseph Berg MD Unavailable [phone] Devika Bashir MARRIAGE AND FAMILY THERAPIST Unavailable Unavailable [facility], Pcp Primary Care Provider Unavailabl e Encounter Details Date Type Department Care Team Description 06/24/2023 Typesetting Supervisor Report Medical Records [address] [place] [address] [facility] Social History Tobacco Use Types Packs/Day [...] on filedocumented in this encounter Care Teams Concrete Smoother Relationship Specialty Start Date End Date Royal Pierre MD [address] [place] [address] [phone] PCP - General Internal Medicine 07/21/20 12/27/23 [facility], Pcp [address] [place] [address] PCP - General Internal Medicine 12/28/23 Chel Montilla MD [address] [place] [address] [phone] Specialist Cardiology 02/25/21 Joseph Berg MD [address] [place] [address] Specialist Cardiology 01/24/23 Devika Bashir NP [address] [place] [address] Cardiology 01/29/23 documented as of this encounter
--- OUTSIDE RECORDS SUMMARY | 2024-11-10 15:01 | XMS_ITS | Encounter Summary ---
Author Organization [facility] Address [address] [place] [address] Care Team Providers Care Financial Management Name Role Phone Royal Pierre MD Primary Care Provider [phone] Chel Montilla MD Unavailable Nubia Preston PA-C Unavailable Unavailab Joseph Thompson MD Unavailable [phone] Devika Bashir NP Unavailable Unavailable [facility], Pcp Primary Care Provider Unavailabl e Encounter Details Date Type Department Care Team Description 01/03/2022 Data Integrity Consultant Report Medical Records [address] [place] [address] [phone] Social History Tobacco Use Types Packs/Day Years [...] on filedocumented in this encounter Care Teams Financial Management Relationship Specialty Start Date End Date Royal Pierre MD [address] [place], [place] [phone] PCP - General Internal Medicine 07/21/20 12/27/23 [facility], Pcp [address] [place] [address] PCP - General Internal Medicine 12/28/23 Chel Montilla MD [address] [place] [address] Specialist Cardiology 02/25/21 Nubia Preston PA-C [address] [place] [address] Cardiology 05/24/21 01/28/23 Joseph Berg MD [address] [place] [address] Specialist Cardiology 01/24/23 Devika Bashir NP [address] [place] [address] Cardiology 01/29/23 documented as of this encounter
--- OUTSIDE RECORDS SUMMARY | 2024-11-10 15:01 | XMS_ITS | Encounter Summary ---
Author Organization [facility] Address [address] [place] [address] Care Team Providers Care Carpenters Name Role Phone Anthony Whittaker MD Primary Care Provider Royal Pierre MD Primary Care Provider [phone] Chel Montilla MD Unavailable Nubia Preston PA-C Unavailable Unavailab Joseph Thompson MD Unavailable [phone] Devika Bashir NP Unavailable Unavailable [facility], Pcp Primary Care Provider Unavailabl e Encounter Details Date Type Department Care Team Description 03/28/2018 Hospital Medical Records [address] [place] [address] Nima Wilkins Social History Tobacco Use Types [...] on filedocumented in this encounter Care Teams Carpenters Relationship Specialty Start Date End Date Anthony Whittaker MD [address] [place] [address] PCP - General 10/09/1995 07/20/20 Royal Pierre MD [address] [place] [address] PCP - General Internal Medicine 07/21/20 12/27/23 [facility], Pcp [address] [place] [address] PCP - General Internal Medicine 12/28/23 Chel Montilla MD [address] [place] [address] Specialist Cardiology 02/25/21 Nubia Preston PA-C [address] [place] [address] Cardiology 05/24/21 01/28/23 Joseph Berg MD [address] [place] [address] Specialist Cardiology 01/24/23 Devika Bashir NP [address] [place] [address] Cardiology 01/29/23 documented as of this encounter
--- OUTSIDE RECORDS SUMMARY | 2024-11-10 15:01 | XMS_ITS | Encounter Summary ---
Author Organization [facility] Address [address] [place] [address] Care Team Providers Care Vegetable Sorter Name Role Phone Royal Pierre MD Primary Care Provider [phone] Chel Montilla MD Unavailable Nubia Preston PA-C Unavailable Unavailab Joseph Thompson MD Unavailable [phone] Devika Bashir NP Unavailable Unavailable [facility], Pcp Primary Care Provider Unavailabl e Encounter Details Date Type Department Care Team Description 03/25/2021 Orders Only Adult Medicine [address] [phone] Chantal Smith PA-C Social History Tobacco Use [...] on filedocumented in this encounter Care Teams Vegetable Sorter Relationship Specialty Start Date End Date Royal Pierre MD [address] [place] [address] PCP - General Internal Medicine 07/21/20 12/27/23 [facility], Pcp [address] [place] [address] PCP - General Internal Medicine 12/28/23 Chel Montilla MD [address] [place] [address] Specialist Cardiology 02/25/21 Nubia Preston PA-C [address] [place] [address] Cardiology 05/24/21 01/28/23 Joseph Berg MD [address] [place] [address] Specialist Cardiology 01/24/23 Devika Bashir NP [address] [place] [address] Cardiology 01/29/23 documented as of this encounter
--- OUTSIDE RECORDS SUMMARY | 2024-11-10 15:01 | XMS_ITS | Encounter Summary ---
Author Organization [facility] Address [address] [place] [address] Care Team Providers Care Sports Marketing Internship Name Role Phone Anthony Whittaker MD Primary Care Provider Royal Pierre MD Primary Care Provider [phone] Chel Montilla MD Unavailable Nubia Preston PA-C Unavailable Unavailab Joseph Thompson MD Unavailable [phone] Devika Bashir NP Unavailable [facility]cp Primary Care Provider Unavailabl e Encounter Details Date Type Department Care Team Description 12/18/2019 Ticket Taker Ferryboat Report Medical Records [address] [place] [address] Husam Guerra MD Social History Tobacco Use [...] filedocumented in this encounter Care Teams Sports Marketing Internship Relationship Specialty Start Date End Date Anthony Whittaker MD [address] [place] [address]20 PCP - General 10/09/1995 07/20/20 Royal Pierre MD [address] [place] [address] [phone] PCP - General Internal Medicine 07/21/20 12/27/23 [facility], Pcp [address] [place] [address] 36896 PCP - General Internal Medicine 12/28/23 Chel Montilla MD [address] [place] [address] Specialist Cardiology 02/25/21 Nubia Preston PA-C [address] [place] [address] 91132 Cardiology 05/24/21 01/28/23 Joseph Berg MD [address] [place] [address] Specialist Cardiology 01/24/23 Devika Bashir NP [address] [place] [address] Cardiology 01/29/23 documented as of this encounter
--- OUTSIDE RECORDS SUMMARY | 2024-11-10 15:01 | XMS_ITS ---
Author Organization [facility] Address [address] [place] [address] Care Team Providers Care Device Repair Technician Name Role Phone Gabby JENSEN, [facility] Primary Care Provider Unav ailable Black, Maria Unavailable [phone] Allergies No Known Allergies REASON FOR VISIT [...] Ordered Date Performed Result Body Sit e 08823- Debride <25 sq cm 10/08/2023 N/A Encounters Encounter Location Date Provider Diagnosis [facility] [place] [address] [place] [address] 10/08/2023 Maria Black Skin ulcer of toe [...] INSTRUCTIONS.pdf) Pending Test Test Name Order Date 85714- Debride <25 sq cm 10/08/2023 Next Appt [...] of the wound post debridement is stable (98756) Progress Notes * Deacon KEYESB:[birth year] (83 yo M)Acc No.[id number]:10/08/2023 Progress Note Patient:?Deacon Keyes Provider:?Maria Maurer DPM :1940???Age:83 Y???Sex:Male Nate e:10/08/2023 Address:[address] [place], [place] [id number] Pcp:Royal Pierre MD Subjective: * Chief Complaints: * ???Pcp- 06/25/23Open sore - Toe * HPI: ???Skin problems:?Treatments:?Topical abx.? * Medical History:? 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 * Procedure Codes:?98516 ACTIV E WOUND CARE/20 CM OR < [...] Maurer DPM Date:?2023 Generated for Ángel palomo/Oni/Chapo on:?11/10/2024 03:01 PM EDT History and Physical Notes * [...]
--- OUTSIDE RECORDS SUMMARY | 2024-11-10 15:01 | XMS_ITS | Encounter Summary ---
Author Organization [facility] Address [address] [place] [address] Care Team Providers Care Compliance And Control Analyst Name Role Phone Royal Pierre MD Primary Care Provider [phone] Chel Montilla MD Unavailable Nubia Preston PA-C Unavailable Unavailab Joseph Thompson MD Unavailable [phone] Devika Bashir NP Unavailable Unavailable [facility], Pcp Primary Care Provider Unavailabl e Encounter Details Date Type Department Care Team Description 03/11/2021 Information Systems Security Officer Report Medical Records [address] [place] [address] 9[address] Husam Guerra MD Social History Tobacco Use [...] on filedocumented in this encounter Care Teams Compliance And Control Analyst Relationship Specialty Start Date End Date Royal Pierre MD [address] [place] [address]20 PCP - General Internal Medicine 07/21/20 12/27/23 [facility], Pcp [address] [place] [address] 49255 PCP - General Internal Medicine 12/28/23 Chel Montilla MD [address] [place] [address] 27229 Specialist Cardiology 02/25/21 Nubia Preston PA-C [address] [place] [address] 40288 Cardiology 05/24/21 01/28/23 Joseph Berg MD [address] [place] [address] 29718 Specialist Cardiology 01/24/23 Devika Bashir NP [address] [place] [address] 82085 Cardiology 01/29/23 documented as of this encounter
--- OUTSIDE RECORDS SUMMARY | 2024-11-10 15:01 | XMS_ITS | Encounter Summary ---
Author Organization [facility] Address [address] [place] [address] Care Team Providers Care Telemetry Nurse Name Role Phone Royal Pierre MD Primary Care Provider [phone] Chel Montilla MD Unavailable Joseph Berg MD Unavailable [phone] Devika Bashir HIDE HANDLER Unavailable Unavailable [facility], Pcp Primary Care Provider Unavailabl e Encounter Details Date Type Department Care Team Description 05/14/2023 Drum Stock Clerk Report Medical Records [address] [place] [address] Dermatology & Laser Social History Tobacco Use [...] on filedocumented in this encounter Care Teams Telemetry Nurse Relationship Specialty Start Date End Date Royal Pierre MD [address] [place] [address] [phone] PCP - General Internal Medicine 07/21/20 12/27/23 [facility], Pcp [address] [place] [address] PCP - General Internal Medicine 12/28/23 Chel Montilla MD [address] [place] [address] 8[address]88 Specialist Cardiology 02/25/21 Joseph Berg MD [address] [place] [address] Specialist Cardiology 01/24/23 Devika Bashir NP [address] [place] [address] Cardiology 01/29/23 documented as of this encounter
--- OUTSIDE RECORDS SUMMARY | 2024-11-10 15:01 | XMS_ITS ---
Author Organization [facility] [place] Address [address] [facility] [place] [address] Care Team Providers Care Ripening Room Attendant Name Role Phone Gabby JENSEN, Royal Contreras Primary Care Provider Unav ailable Black, Maria Unavailable [phone] Allergies No Known Allergies REASON FOR VISIT [...] Ulcer of toe of left foot (disorder) ([id number]) Skin ulcer of toe of left foot, limited to breakdown of skin (L97.521) Active confirmed Nonapplicable Vital Signs Height 5 ft 6 in in 09/20/2023 Weight 156 lbs 09/20/2023 BMI 25.18 kg/m2 09/20/2023 Blood pressure systolic 126 mm Hg 09/20/19 24 Blood pressure diastolic 62 mm Hg 024 Procedures Procedure Date Ordered Date Performed Result Body Sit e 22487-TWUIZXY NAIL, 6 OR MORE 09/20/2023 N/A 70074-Vtkfaxmc Plate 09/20/2023 N/A Encounters Encounter Location Date Provider Diagnosis [facility] [place] [address] [place] [address] 09/20/2023 Maria Black Onychomycosis B35.1 ; Ingrown [...] Treatment Pending Test Test Name Order Date 63914-ENKEVXN NAIL, 6 OR MORE 09/20/2023 86749-Limjyivf Plate 09/20/2023 Next Appt Details Follow Up: [...] Motrin was recommended for pain or discomfort (53255) Anesthesia 3cc of 1 percent Lid ocaine [...] as necessary. Patient chooses, no pharmaceutical tx (91575) Progress Notes * Deacon KEYES JrDOB:[birth year] (82 yo M)Acc No.[id number]:09/20/2023 Progress Note Patient:?Deacon Keyes Sandeep Provider:?Maria Maurer DPM :1940???Age:82 Y???Sex:Male Nate e:09/20/2023 Address:[address] [place] [address] [id number] Pcp:Royal Pierre MD Subjective: * Chief Complaints: * ???Painful nail(s) aggrevate d by shoes causing difficulty standing/walkingIngrown Nail * HPI: ???Painful Nails:?Pt States Last PCP Visit:?Date:?06/25/2023 * Medical History:? 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 Plan: * Treatment: 2.?Onychomycosis?Procedure: 80041-ZARYDBF NAIL, 6 OR MORE * Procedures:?Debride Nail 6-10:?Nail debridement?Nail debridement performed extensively to reduce/remove overall nail length and girth, subungual debris, and necrotic tissue, by manual and electrical means with use of a nail nipper and/or dremel, to more viable healthy nail plate or bed tissue 6-10. Silver nitrate used for any petechial bleeding as necessary. Patient chooses, no pharmaceutical tx (37796).?Nail Avulsion:?Location?Medial nail border , TA.?Anesthesia?3cc of 1 [...] Motrin was recommended for pain or discomfort (77141).? * Procedure Codes:?56610 DEBRI DE NAIL, 6 OR MORE, Modifiers: XS 76489 Avulsion Plate, Modifiers: TA * Follow Up:?2 [...]
--- OUTSIDE RECORDS SUMMARY | 2024-11-10 15:01 | XMS_ITS | Encounter Summary ---
Author Organization [facility] Address [address] [place] [address] Care Team Providers Care Titrator Name Role Phone Anthony Whittaker MD Primary Care Provider [phone] Royal Pierre MD Primary Care Provider [phone] Chel Montilla MD Unavailable Nubia Preston PA-C Unavailable Unavailab Joseph Thompson MD Unavailable [phone] Devika Bashir NP Unavailable Unavailable [facility], Pcp Primary Care Provider Unavailabl e Encounter Details Date Type Department Care Team Description 11/11/2019 Auto Service Representative Report Medical Records [address] [place] [address] 26817 Chel Montilla MD [address] [place] [address] [phone] Social History Tobacco Use Types Packs/Day Years [...] on filedocumented in this encounter Care Teams Titrator Relationship Specialty Start Date End Date Anthony Whittaker MD [address] [place] [address] [phone] PCP - General 10/09/1995 07/20/20 Royal Pierre MD [address] [place] [address] 44200 PCP - General Internal Medicine 07/21/20 12/27/23 [facility], Pcp [address] [place] [address] PCP - General Internal Medicine 12/28/23 Chel Montilla MD [address] [place] [address] Specialist Cardiology 02/25/21 Nubia Preston PA-C [address] [place] [address] Cardiology 05/24/21 01/28/23 Joseph Berg MD [address] [place] [address] Specialist Cardiology 01/24/23 Devika Bashir NP [address] [place], [place] [phone] Cardiology 01/29/23 documented as of this encounter
--- OUTSIDE RECORDS SUMMARY | 2024-11-10 15:01 | XMS_ITS | Encounter Summary ---
Author Organization [facility] Address [address] [place] [address] Care Team Providers Care Button Machine Operator Name Role Phone Royal Pierre MD Primary Care Provider [phone] Chel Montilla MD Unavailable Nubia Preston PA-C Unavailable Unavailab Joseph Thompson MD Unavailable [phone] Devika Bashir NP Unavailable Unavailable [facility], Pcp Primary Care Provider Unavailabl e Encounter Details Date Type Department Care Team Description 05/18/2022 Fashion Buying Internship Report Medical Records [address] [place] [address] Jocelynn Reese NP Social History Tobacco Use [...] on filedocumented in this encounter Care Teams Button Machine Operator Relationship Specialty Start Date End Date Royal Pierre MD [address] [place] [address] [phone] PCP - General Internal Medicine 07/21/20 12/27/23 [facility], Pcp [address] [place] [address] 11694 PCP - General Internal Medicine 12/28/23 Chel Montilla MD [address] [place] [address] [phone] Specialist Cardiology 02/25/21 Nubia Preston PA-C [address] [place] [address] Cardiology 05/24/21 01/28/23 Joseph Berg MD [address] [place], [place] [phone] Specialist Cardiology 01/24/23 Devika Bashir NP [address] [place] [address] Cardiology 01/29/23 documented as of this encounter
--- OUTSIDE RECORDS SUMMARY | 2024-11-10 15:01 | XMS_ITS | Encounter Summary ---
Author Organization [facility] Address [address] [place] [address] Care Team Providers Care Photographer Lithographic Name Role Phone Anthony Whittaker MD Primary Care Provider [phone] Royal Pierre MD Primary Care Provider [phone] Chel Montilla MD Unavailable Nubia Preston PA-C Unavailable Unavailab Joseph Thompson MD Unavailable [phone] Devika Bashir NP Unavailable Unavailable Replaced By [facility], Pcp Primary Care Provider Unavailabl e Encounter Details Date Type Department Care Team Description 06/04/2013 Business Doc Medical Records [address] [place] [address] 27529 Abstract, Provider Social History Tobacco Use Types [...] on filedocumented in this encounter Care Teams Photographer Lithographic Relationship Specialty Start Date End Date Anthony Whittaker MD [address] [place] [address] [phone] PCP - General 10/09/1995 07/20/20 Royal Pierre MD [address] [place] [address] 01182 PCP - General Internal Medicine 07/21/20 12/27/23 Replaced By [facility], Pcp [address] [place] [address] PCP - General Internal Medicine 12/28/23 Chel Montilla MD [address] [place] [address] Specialist Cardiology 02/25/21 Nubia Preston PA-C [address] [place] [address] Cardiology 05/24/21 01/28/23 Joseph Berg MD [address] [place] [address] Specialist Cardiology 01/24/23 Devika Bashir NP [address] [place] [address] Cardiology 01/29/23 documented as of this encounter
--- OUTSIDE RECORDS SUMMARY | 2024-11-10 15:01 | XMS_ITS | Encounter Summary ---
Author Organization [facility] Address [address] [place] [address] Care Team Providers Care Terminal Gauger Name Role Phone Royal Pierre MD Primary Care Provider [phone] Chel Montilla MD Unavailable Joseph Berg MD Unavailable [phone] Devika Bashir NP Unavailable Unavailable [facility], Pcp Primary Care Provider Unavailabl e Encounter Details Date Type Department Care Team Description 05/18/2023 Hospital Medical Records [address] [place] [address] [facility] Social History Tobacco Use Types Packs/Day [...] on filedocumented in this encounter Care Teams Terminal Gauger Relationship Specialty Start Date End Date Royal Pierre MD [address] [place] [address] [phone] PCP - General Internal Medicine 07/21/20 12/27/23 [facility], Pcp [address] [place] [address] 60480 PCP - General Internal Medicine 12/28/23 Chel Montilla MD [address] [place] [address] 78621 Specialist Cardiology 02/25/21 Joseph Berg MD [address] [place] [address] 26467 Specialist Cardiology 01/24/23 Devika Bashir NP [address] [place] [address] 68946 Cardiology 01/29/23 documented as of this encounter
--- OUTSIDE RECORDS SUMMARY | 2024-11-10 15:01 | XMS_ITS | Encounter Summary ---
Author Organization [facility] Address [address] [place] [address] Care Team Providers Care Billet Grinder Name Role Phone Anthony Whittaker MD Primary Care Provider [phone] Royal Pierre MD Primary Care Provider [phone] Chel Montilla MD Unavailable Nubia Preston PA-C Unavailable Unavailab Joseph Thompson MD Unavailable [phone] Devika Bashir NP Unavailable Unavailable [facility], Pcp Primary Care Provider Unavailabl e Encounter Details Date Type Department Care Team Description 07/26/2016 Pump Press Operator Report Medical Records [address] [place] [address] 49805 Chel Montilla MD [address] [place] [address] [phone] Social History Tobacco Use Types Packs/Day Years [...] on filedocumented in this encounter Care Teams Billet Grinder Relationship Specialty Start Date End Date Anthony Whittaker MD [address] [place] [address] [phone] PCP - General 10/09/1995 07/20/20 Royal Pierre MD [address] [place] [address] 15908 PCP - General Internal Medicine 07/21/20 12/27/23 [facility], Pcp [address] [place] [address] PCP - General Internal Medicine 12/28/23 Chel Montilla MD [address] [place] [address] Specialist Cardiology 02/25/21 Nubia Preston PA-C [address] [place] [address] Cardiology 05/24/21 01/28/23 Joseph Berg MD [address] [place] [address] Specialist Cardiology 01/24/23 Devika Bashir NP [address] [place], [place] [phone] Cardiology 01/29/23 documented as of this encounter
--- OUTSIDE RECORDS SUMMARY | 2024-11-10 15:01 | XMS_ITS | Encounter Summary ---
Author Organization [facility] Address [address] [place] [address] Care Team Providers Care Rf Manager Name Role Phone Anthony Whittaker MD Primary Care Provider [phone] Royal Pierre MD Primary Care Provider Chel Montilla MD Unavailable Nubia Preston PA-C Unavailable Unavailab Joseph Thompson MD Unavailable [phone] Devika Bashir NP Unavailable [facility]cp Primary Care Provider Unavailabl e Reason for Visit * Reason Comments E-prescribe Rx Request Encounter Details Date Type Department Care Team Description 10/27/2017 Refill Adult Medicine [address] [phone] Anthony Whittaker MD [address] [place] [address] [phone] E-prescribe Rx Request Social History Tobacco Use [...] -[place]/PP[place] / Plan: PPO $0 [place] [id number] / Product Type: PPO [id number] ? documented in this encounter Plan of Treatment Not on file documented as of this encounter Visit Diagnoses Not on filedocumented in this encounter Care Teams Rf Manager Relationship Specialty Start Date End Date Anthony Whittaker MD [address] [place] [address] 33189 PCP - General 10/09/1995 07/20/20 oRyal Pierre MD [address] [place] [address] 04910 PCP - General Internal Medicine 07/21/20 12/27/23 [facility]cp [address] [place] [address] 19573 PCP - General Internal Medicine 12/28/23 Chel Montilla MD [address] [place] [address] 34481 Specialist Cardiology 02/25/21 Nubia Preston PA-C [address] [place] [address] 56223 Cardiology 05/24/21 01/28/23 Joseph Berg MD [address] [place] [address] 19245 Specialist Cardiology 01/24/23 Devika Bashir NP [address] [place] [address] 02872 Cardiology 01/29/23 documented as of this encounter
--- OUTSIDE RECORDS SUMMARY | 2024-11-10 15:01 | XMS_ITS | Encounter Summary ---
Author Organization [facility] Address [address] [place] [address] Care Team Providers Care Driving Instructor Name Role Phone Anthony Whittaker MD Primary Care Provider [phone] Royal Pierre MD Primary Care Provider [phone] Chel Montilla MD Unavailable Nubia Preston PA-C Unavailable Unavailab Joseph Thompson MD Unavailable [phone] Devika Bashir NP Unavailable Unavailable [facility], Pcp Primary Care Provider Unavailabl e Encounter Details Date Type Department Care Team Description 01/30/2018 Hospital Medical Records [address] [place] [address] 8[address]24 Jeanine Pedersen MD Social History Tobacco Use [...] on filedocumented in this encounter Care Teams Driving Instructor Relationship Specialty Start Date End Date Anthony Whittaker MD [address] [place] [address] [phone] PCP - General 10/09/1995 07/20/20 Royal Pierre MD [address] [place] [place] [address] 01020 PCP - General Internal Medicine 07/21/20 12/27/23 [facility], Pcp [address] [place] [address] PCP - General Internal Medicine 12/28/23 Chel Montilla MD [address] [place] [address] Specialist Cardiology 02/25/21 Nubia Preston PA-C [address] [place] [address] Cardiology 05/24/21 01/28/23 Joseph Berg MD [address] [place] [address] Specialist Cardiology 01/24/23 Devika Bashir NP [address] [place] [address] Cardiology 01/29/23 documented as of this encounter
--- OUTSIDE RECORDS SUMMARY | 2024-11-10 15:01 | XMS_ITS | Encounter Summary ---
Author Organization [facility] Address [address] [place] [address] Care Team Providers Care Hearing Impaired Itinerant Teacher Name Role Phone Royal Pierre MD Primary Care Provider [phone] Chel Montilla MD Unavailable Nubia Preston PA-C Unavailable Unavailab Joseph Thompson MD Unavailable [phone] Devika Bashir NP Unavailable Unavailable [facility], Pcp Primary Care Provider Unavailabl e Encounter Details Date Type Department Care Team Description 07/26/2020 Apparel Manager Report Medical Records [address] [place] [address] 6[address]43 Go Ramos MD Social History Tobacco Use [...] on filedocumented in this encounter Care Teams Hearing Impaired Itinerant Teacher Relationship Specialty Start Date End Date Royal Pierre MD [address] [place] [address]20 PCP - General Internal Medicine 07/21/20 12/27/23 [facility], Pcp [address] [place] [address] 94984 PCP - General Internal Medicine 12/28/23 Chel Montilla MD [address] [place] [address] Specialist Cardiology 02/25/21 Nubia Preston PA-C [address] [place] [address] Cardiology 05/24/21 01/28/23 Joseph Berg MD [address] [place] [address] Specialist Cardiology 01/24/23 Devika Bashir NP [address] [place] [address] Cardiology 01/29/23 documented as of this encounter
--- OUTSIDE RECORDS SUMMARY | 2024-11-10 15:01 | XMS_ITS | Encounter Summary ---
Author Organization [facility] Address [address] [place] [address] Care Team Providers Care Drywall Finisher Foreman Name Role Phone Royal Pierre MD Primary Care Provider [phone] Chel Montilla MD Unavailable Nubia Preston PA-C Unavailable Unavailab Joseph Thompson MD Unavailable [phone] Devika Bashir NP Unavailable Unavailable [facility], Pcp Primary Care Provider Unavailabl e Encounter Details Date Type Department Care Team Description 09/15/2020 Dispatcher Service Chief Report Medical Records [address] [place] [address] Edward Garcia MD Social History Tobacco Use [...] Foreman Relationship Specialty Start Date End Date Royal Pierre MD [address] [place] [address] [phone] PCP - General Internal Medicine 07/21/20 12/27/23 [facility], Pcp [address] [place] [address] 00388 PCP - General Internal Medicine 12/28/23 Chel Montilla MD [address] [place] [address] [phone] Specialist Cardiology 02/25/21 Nubia Preston PA-C [address] [place] [address] Cardiology 05/24/21 01/28/23 Joseph Berg MD [address] [place], [place] [phone] Specialist Cardiology 01/24/23 Devika Bashir NP [address] [place] [address] 87892 Cardiology 01/29/23 documented as of this encounter
--- OUTSIDE RECORDS SUMMARY | 2024-11-10 15:01 | XMS_ITS | Encounter Summary ---
Author Organization [facility] Address [address] [place] [address] Care Team Providers Care Circle Cutting Saw Operator Name Role Phone Royal Pierre MD Primary Care Provider [phone] Chel Montilla MD Unavailable Joseph Berg MD Unavailable [phone] Devika Bashir NP Unavailable Unavailable [facility], Pcp Primary Care Provider Unavailabl e Reason for Visit * Reason Onset Date Comments Hospital Procedure 04/09/2023 Upgrade to Du al ICD 11.3.23 Encounter Details Date Type Department Care Team Description 04/09/2023 Telephone Cardio PVC POC 154 [address] [facility] [address] [place], [place] [phone] Joseph Berg MD [address] [place] [address] [phone] Hospital Procedure (Upgrade to Dual ICD 11.3.23) [...] Scheduled on 05.18.[address] Berg at [facility] at 10am Mailing packet to patient [...] the procedure Patient is to report to [facility] to the 3rd floor Patient agreed to [...] AUTO&AUTO DIFRNTL WBC (05/04/2023 1:35 PM EDT) [facility] WHITE BLOOD COUNT 7.9 4.8 - 10.8 x10-3/uL 05/04/2023 4:29 PM EDT [facility] RED BLOOD COUNT 3.8(L) 4.5 - 5.5 x10-6/uL 05/04/2023 4:29 PM EDT [facility] Hemoglobin 12.7(L) 13.5 - 17.5 g/dL 05/04/2023 4:29 PM EDT [facility] Hematocrit 36.5(L) 42 - 54 % 05/04/2023 4:29 PM EDT [facility] MEAN CORPUSCULAR VOLUME 96.6 79 - 98 fL 05/04/2023 4:29 PM EDT [facility]AN CORPUSCULAR HEMOGLOBIN 33.6(H) 27 - 32 pg 05/04/2023 4:29 PM EDT [facility] MEAN CORPUSCULAR HGB CONC 34.8 32 - 37 g/dL 05/04/2023 4:29 PM EDT [facility] RED CELL DISTRIBUTION WIDTH 14.0 11 - 15 % 05/04/2023 4:29 PM EDT [facility] PLT COUNT 215 130 - 400 x10-3/uL 05/04/2023 4:29 PM EDT [facility] PLATELET VOLUME 8.9 7 - 11 fL 05/04/2023 4:29 PM EDT [facility] NRBC % AUTO 0.0 <1 % 05/04/2023 4:29 PM EDT [facility] NEUTROPHILS % 71.6 % 05/04/2023 4:29 PM EDT [facility] LYMPH % 12.3 % 05/04/2023 4:29 PM EDT [facility] MONO % 12.0 % 05/04/2023 4:29 PM EDT [facility] EOS % 3.1 % 05/04/2023 4:29 PM EDT [facility] BASO % 0.6 % 05/04/2023 4:29 PM EDT [facility] IMMATURE GRANULOCYTES % 0.4 % 05/04/2023 4:29 PM EDT [facility] NRBC # AUTO 0.00 <0.1 x10-3/uL 05/04/2023 4:29 PM EDT [facility] NEUT # 5.63 1.5 - 7.0 x10-3/uL 05/04/2023 4:29 PM EDT [facility] LYMPH # 0.97(L) 1 - 5.0 x10-3/uL 05/04/2023 4:29 PM EDT [facility] MONO # 0.94 0.2 - 1.0 x10-3/uL 05/04/2023 4:29 PM EDT [facility] EOS # 0.24 0 - [...] to patient->Immediate Joseph Berg MD LAB [facility] * (ABNORMAL) CHG BASIC METABOLIC PANEL CALCIUM TOTAL (05/04/2023 1:35 PM EDT) GLUCOSE 95 70 - 100 mg/dL 05/04/2023 4:42 PM EDT [facility] Comment:Reference range appl icable to fasting specimens only Blood Urea Nitrogen 11 5 - 25 mg/dL 05/04/2023 4:42 PM EDT [facility] CREAT 0.89 0.7 - 1.3 mg/dL 05/04/2023 4:42 PM EDT [facility] GLOMERULAR FILTRATION RATE 86 >60 05/04/2023 4:42 PM EDT [facility] Comment: This eGFR result was calculated using the CKD-EPI 2020 Creatinine Equation NA 131(L) 135 - 145 mEq/L 05/04/2023 4:42 PM EDT [facility] K 4.2 3.5 - 5.5 mmol/L 05/04/2023 4:42 PM EDT [facility] CL 95(L) 96 - 110 mmol/L 05/04/2023 4:42 PM EDT [facility] CARBON DIOXIDE (CO2) 29 21 - 32 [...] Joseph Berg MD LAB Performing Organization Address [facility] de Phone Number [facility] documented in this encounter Visit Diagnoses Diagnosis VT (ventricular tachycardia) (HCC)- Primary Paroxysmal ventricular tachycardia VT (ventricular tachycardia) (HCC) Paroxysmal ventricular tachycardia documented in this encounter Care Teams Circle Cutting Saw Operator Relationship Specialty Start Date End Date Royal Pierre MD [address] [place] [address] PCP - General Internal Medicine 07/21/20 12/27/23 [facility], Pcp [address] [place], [place] [phone] PCP - General Internal Medicine 12/28/23 Chel Montilla MD [address] [place] [address]497 Specialist Cardiology 02/25/21 Joseph Berg MD [address] [place] [address] 32648 Specialist Cardiology 01/24/23 Devika Bashir NP [address] [place], [place] [phone] Cardiology 01/29/23 documented as of this encounter
--- OUTSIDE RECORDS SUMMARY | 2024-11-10 15:01 | XMS_ITS | Encounter Summary ---
Author Organization [facility] Address [address] [place] [address] Care Team Providers Care Mining Professionals Name Role Phone Royal Pierre MD Primary Care Provider [phone] Chel Montilla MD Unavailable Joseph Berg MD Unavailable [phone] Devika Bashir APPLICATION SECURITY ENGINEER Unavailable Unavailable [facility], Pcp Primary Care Provider Unavailabl e Encounter Details Date Type Department Care Team Description 06/25/2023 Hospital Medical Records [address] [place] [address] Perez Mei MD Social History Tobacco Use [...] on filedocumented in this encounter Care Teams Mining Professionals Relationship Specialty Start Date End Date Royal Pierre MD [address] [place] [address] 90[address] PCP - General Internal Medicine 07/21/20 12/27/23 [facility], Pcp [address] [place] [address] 16625 PCP - General Internal Medicine 12/28/23 Chel Montilla MD [address] [place] [address] [phone] Specialist Cardiology 02/25/21 Joseph Berg MD [address] [place] [address] 75365 Specialist Cardiology 01/24/23 Devika Bashir NP [address] [place] [address] Cardiology 01/29/23 documented as of this encounter
--- OUTSIDE RECORDS SUMMARY | 2024-11-10 15:01 | XMS_ITS | Encounter Summary ---
Author Organization [facility] Address [address] [place] [address] Care Team Providers Care Optical Fabricator Name Role Phone Anthony Whittaker MD Primary Care Provider [phone] Royal Pierre MD Primary Care Provider [phone] Chel Montilla MD Unavailable Nubia Preston PA-C Unavailable Unavailab Joseph Thompson MD Unavailable [phone] Devika Bashir NP Unavailable Unavailable [facility], Pcp Primary Care Provider Unavailabl e Reason for Visit * Reason Onset Date Comments VNA Call 03/15/2018 Encounter Details Date Type Department Care Team Description 03/15/2018 Telephone Adult Medicine [address] [phone] Anthony Whittaker MD [address] [place] [address] [phone] VNA Call Social History Tobacco Use Types [...] VNA CALL Which [facility]NA office is calling? [place] [facility] Full name of caller: Bianka Joaquín [...] filedocumented in this encounter Care Teams Optical Fabricator Relationship Specialty Start Date End Date Anthony Whittaker MD [address] [place] [address] PCP - General 10/09/1995 07/20/20 Royal Pierre MD [address] [place] [address] 27663 PCP - General Internal Medicine 07/21/20 12/27/23 [facility], Pcp [address] [place] [address] 23951 PCP - General Internal Medicine 12/28/23 Chel Montilla MD [address] [place] [address] Specialist Cardiology 02/25/21 Nubia Preston PA-C [address] [place] [address] Cardiology 05/24/21 01/28/23 Joseph Berg MD [address] [place] [address] 70089 Specialist Cardiology 01/24/23 Devika Bashir NP [address] [place] [address]64 Cardiology 01/29/23 documented as of this encounter
--- OUTSIDE RECORDS SUMMARY | 2024-11-10 15:01 | XMS_ITS | Encounter Summary ---
Author Organization [facility] Address [address] [place] [address] Care Team Providers Care Farm Agent Name Role Phone Anthony Whittaker MD Primary Care Provider [phone] Royal Pierre MD Primary Care Provider [phone] Chel Montilla MD Unavailable Nubia Preston PA-C Unavailable Unavailab Joseph Thompson MD Unavailable [phone] Devika Bashir NP Unavailable Unavailable [facility], Pcp Primary Care Provider Unavailabl e Encounter Details Date Type Department Care Team Description 07/14/2006 Hospital Medical Records [address] [place] [address] Susy Contreras MD Social History Tobacco Use [...] on filedocumented in this encounter Care Teams Farm Agent Relationship Specialty Start Date End Date Anthony Whittaker MD [address] [place] [address] PCP - General 10/09/1995 07/20/20 Royal Pierre MD [address] [place] [address] PCP - General Internal Medicine 07/21/20 12/27/23 [facility], Pcp [address] [place] [address] PCP - General Internal Medicine 12/28/23 Chel Montilla MD [address] [place] [address] Specialist Cardiology 02/25/21 Nubia Preston PA-C [address] [place] [address] Cardiology 05/24/21 01/28/23 Joseph Berg MD [address] [place] [address] Specialist Cardiology 01/24/23 Devika Bashir NP [address] [place] [address] Cardiology 01/29/23 documented as of this encounter
--- OUTSIDE RECORDS SUMMARY | 2024-11-10 15:01 | XMS_ITS | Encounter Summary ---
Author Organization [facility] Address [address] [place] [address] Care Team Providers Care Postdoctoral Research Fellow Name Role Phone Royal Pierre MD Primary Care Provider Chel Montilla MD Unavailable Nubia Preston PA-C Unavailable Unavailab Joseph Thompson MD Unavailable [phone] Devika Bashir NP Unavailable Unavailable [facility], Pcp Primary Care Provider Unavailabl e Encounter Details Date Type Department Care Team Description 01/20/2022 Hospital Medical Records [address] [place] [address] [facility] Social History Tobacco Use Types Packs/Day [...] on filedocumented in this encounter Care Teams Postdoctoral Research Fellow Relationship Specialty Start Date End Date Royal Pierre MD [address] [place] [address] [phone] PCP - General Internal Medicine 07/21/20 12/27/23 [facility], Pcp [address] [place] [address] 79[address] PCP - General Internal Medicine 12/28/23 Chel Montilla MD [address] [place] [address] Specialist Cardiology 02/25/21 Nubia Preston PA-C [address] [place] [address] Cardiology 05/24/21 01/28/23 Joseph Berg MD [address] [place] [address] Specialist Cardiology 01/24/23 Devika Bashir NP [address] [place] [address] Cardiology 01/29/23 documented as of this encounter
--- OUTSIDE RECORDS SUMMARY | 2024-11-10 15:01 | XMS_ITS | Encounter Summary ---
Author Organization [facility] Address [address] [place] [address] Care Team Providers Care Hospital Liaison Name Role Phone Anthony Whittaker MD Primary Care Provider [phone] Royal Pierre MD Primary Care Provider [phone] Chel Montilla MD Unavailable Nubia Preston PA-C Unavailable Unavailab Joseph Thompson MD Unavailable [phone] Devika Bashir NP Unavailable Unavailable [facility], Pcp Primary Care Provider Unavailabl e Reason for Visit * Reason Onset Date Comments Call From Patient Family 03/08/2018 Encounter Details Date Type Department Care Team Description 03/08/2018 Telephone Adult Medicine [address] [phone] Anthony Whittaker MD [address] [place] [address] [phone] Call From Patient Family Social History Tobacco [...] know that patient has been admitted to [facility] documented in this encounter Plan of Treatment Not on file documented as of this encounter Visit Diagnoses Not on filedocumented in this encounter Care Teams Hospital Liaison Relationship Specialty Start Date End Date Anthony Whittaker MD [address] [place] [address] 38971 PCP - General 10/09/1995 07/20/20 Royal Pierre MD [address] [place] [address] 04542 PCP - General Internal Medicine 07/21/20 12/27/23 Counts Include [facility], Pcp [address] [place] [address] 29489 PCP - General Internal Medicine 12/28/23 Chel Montilla MD [address] [place] [address] 20328 Specialist Cardiology 02/25/21 Nubia Preston PA-C [address] [place] [address] 08914 Cardiology 05/24/21 01/28/23 Jospeh Berg MD [address] [place] [address] 52708 Specialist Cardiology 01/24/23 Devika Bashir NP [address] [place] [address] 59671 Cardiology 01/29/23 documented as of this encounter
--- OUTSIDE RECORDS SUMMARY | 2024-11-10 15:01 | XMS_ITS | Encounter Summary ---
Author Organization [facility] Address [address] [place] [address] Care Team Providers Care Carton Counter Feeder Name Role Phone Anthony Whittaker MD Primary Care Provider Royal Pierre MD Primary Care Provider [phone] Chel Montilla MD Unavailable Nubia Preston PA-C Unavailable Unavailab Joseph Thompson MD Unavailable [phone] Devika Bashir NP Unavailable Unavailable [facility], Pcp Primary Care Provider Unavailabl e Encounter Details Date Type Department Care Team Description 05/16/2019 Government Minister Report Medical Records [address] [place] [address] [facility] Social History Tobacco Use Types [...] on filedocumented in this encounter Care Teams Carton Counter Feeder Relationship Specialty Start Date End Date Anthony Whittaker MD [address] [place] [address] PCP - General 10/09/1995 07/20/20 Royal Pierre MD [address] [place] [address]20 PCP - General Internal Medicine 07/21/20 12/27/23 [facility], Pcp [address] [place] [address] PCP - General Internal Medicine 12/28/23 Chel Montilla MD [address] [place] [address] Specialist Cardiology 02/25/21 Nubia Preston PA-C [address] [place] [address] 08261 Cardiology 05/24/21 01/28/23 Joseph Berg MD [address] [place] [address] Specialist Cardiology 01/24/23 Devika Bashir NP [address] [place] [address] Cardiology 01/29/23 documented as of this encounter
--- OUTSIDE RECORDS SUMMARY | 2024-11-10 15:01 | XMS_ITS | Encounter Summary ---
Author Organization [facility] Address [address] [place] [address] Care Team Providers Care Tightener Name Role Phone Anthony Whittaker MD Primary Care Provider [phone] Royal Pierre MD Primary Care Provider [phone] Chel Montilla MD Unavailable Nubia Preston PA-C Unavailable Unavailab Joseph Thompson MD Unavailable [phone] Devika Bashir NP Unavailable Unavailable [facility], Pcp Primary Care Provider Unavailabl e Encounter Details Date Type Department Care Team Description 12/06/2011 Veterinary Pharmacologist Report Medical Records [address] [place] [address]61 Lee Gil MD Social History Tobacco Use [...] on filedocumented in this encounter Care Teams Tightener Relationship Specialty Start Date End Date Anthony Whittaker MD [address] [place] [address] [phone] PCP - General 10/09/1995 07/20/20 Royal Pierre MD [address] [place] [address] [phone] PCP - General Internal Medicine 07/21/20 12/27/23 [facility], Pcp [address] [place] [address] PCP - General Internal Medicine 12/28/23 Chel Montilla MD [address] [place] [address] Specialist Cardiology 02/25/21 Nubia Preston PA-C [address] [place] [address] 68681 Cardiology 05/24/21 01/28/23 Joseph Berg MD [address] [place] [address] Specialist Cardiology 01/24/23 Devika Bashir NP [address] [place] [address] Cardiology 01/29/23 documented as of this encounter
--- OUTSIDE RECORDS SUMMARY | 2024-11-10 15:01 | XMS_ITS | Encounter Summary ---
Author Organization [facility] Address [address] [place] [address] Care Team Providers Care E Commerce Solution Architect Name Role Phone Royal Pierre MD Primary Care Provider [phone] Chel Montilla MD Unavailable Nubia Preston PA-C Unavailable Unavailab Joseph Thompson MD Unavailable [phone] Devika Bashir NP Unavailable Unavailable [facility], Pcp Primary Care Provider Unavailabl e Encounter Details Date Type Department Care Team Description 02/16/2021 Lock And Dam Equipment Repairer Report Medical Records [address] [place] [address]207 Husam Guerra MD Social History Tobacco Use [...] on filedocumented in this encounter Care Teams E Commerce Solution Architect Relationship Specialty Start Date End Date Royal Pierre MD [address] [place] [address] PCP - General Internal Medicine 07/21/20 12/27/23 [facility], Pcp [address] [place] [address] PCP - General Internal Medicine 12/28/23 Chel Montilla MD [address] [place] [address] 44530 Specialist Cardiology 02/25/21 Nubia Preston PA-C [address] [place] [address] 35457 Cardiology 05/24/21 01/28/23 Joseph Berg MD [address] [place] [address] 99302 Specialist Cardiology 01/24/23 Devika Bashir NP [address] [place] [address] 8[address]79 Cardiology 01/29/23 documented as of this encounter
--- OUTSIDE RECORDS SUMMARY | 2024-11-10 15:01 | XMS_ITS | Encounter Summary ---
Author Organization [facility] Address [address] [place] [address] Care Team Providers Care Molder Inflated Ball Name Role Phone Anthony Whittaker MD Primary Care Provider Royal Pierre MD Primary Care Provider [phone] Chel Montilla MD Unavailable Nubia Preston PA-C Unavailable Unavailab Joseph Thompson MD Unavailable [phone] Devika Bashir NP Unavailable Unavailable [facility], Pcp Primary Care Provider Unavailabl e Reason for Visit * Reason Onset Date Comments TEST RESULTS 04/21/2020 Encounter Details Date Type Department Care Team Description 04/21/2020 Telephone Adult Medicine [address] [address] Reno Marie PA-C [address] [place] [address] TEST RESULTS Social History Tobacco Use Types [...] office no reports Request sent to [facility] report [place] [facility] [place], will fax to [facility] srinivas fax * Telephone Encounter - Emma Wick - 04/21/2020 10:45 AM EDT Inform patient: ANY URGENT OR ABNORMAL RESULTS WIILL RESULT IN A CALL BACK TO THE PATIENT TINO. Patient walked in. States that she has a copy of her husbands test results and is worried about cysts he has. States that she read the results . States [facility] gave her results so we should have received a copy Type of test: : Ultrasound of right knee Date test was performed: not sure of day Where was the test performed: [facility] Who ordered this test?: Reno [...] on filedocumented in this encounter Care Teams Molder Inflated Ball Relationship Specialty Start Date End Date Anthony Whittaker MD [address] [place] [address] PCP - General 10/09/1995 07/20/20 Royal Pierre MD [address] [place] [address] 01796 PCP - General Internal Medicine 07/21/20 12/27/23 [facility], [place] [address] [place] [address] PCP - General Internal Medicine 12/28/23 Chel Montilla MD [address] [place] [address] 54056 Specialist Cardiology 02/25/21 Nubia Preston PA-C [address] [place] [address] 40074 Cardiology 05/24/21 01/28/23 Joseph Berg MD [address] [place] [address] 9[address]41 Specialist Cardiology 01/24/23 Devika Bashir NP [address] [place] [address]476 Cardiology 01/29/23 documented as of this encounter
--- OUTSIDE RECORDS SUMMARY | 2024-11-10 15:01 | XMS_ITS | Encounter Summary ---
Author Organization [facility] Address [address] [place] [address] Care Team Providers Care Vocational Rehab Consultant Name Role Phone Royal Pierre MD Primary Care Provider [phone] Chel Montilla MD Unavailable Nubia Preston PA-C Unavailable Unavailab Joseph Thompson MD Unavailable [phone] Devika Bashir NP Unavailable Unavailable [facility], Pcp Primary Care Provider Unavailabl e Encounter Details Date Type Department Care Team Description 03/02/2021 SCAN Medical Records [address] [place] [address] Abstract, Provider Social History Tobacco Use Types [...] on filedocumented in this encounter Care Teams Vocational Rehab Consultant Relationship Specialty Start Date End Date Royal Pierre MD [address] [place] [address] PCP - General Internal Medicine 07/21/20 12/27/23 [facility], Pcp [address] [place] [address]95 PCP - General Internal Medicine 12/28/23 Chel Montilla MD [address] [place] [address] Specialist Cardiology 02/25/21 Nubia Preston PA-C [address] [place] [address] Cardiology 05/24/21 01/28/23 Joseph Berg MD [address] [place] [address] Specialist Cardiology 01/24/23 Devika Bashir NP [address] [place] [address] Cardiology 01/29/23 documented as of this encounter
--- OUTSIDE RECORDS SUMMARY | 2024-11-10 15:01 | XMS_ITS | Encounter Summary ---
Author Organization [facility] Address [address] [place] [address] Care Team Providers Care Trim Master Operator Name Role Phone Anthony Whittaker MD Primary Care Provider [phone] Royal Pierre MD Primary Care Provider [phone] Chel Montilla MD Unavailable Nubia Preston PA-C Unavailable Unavailab Joseph Thompson MD Unavailable [phone] Devika Bashir NP Unavailable Unavailable [facility], Pcp Primary Care Provider Unavailabl e Encounter Details Date Type Department Care Team Description 09/08/2010 Water Meter Reader Report Medical Records [address] [place] [address] Lee Gil MD Social History Tobacco Use [...] filedocumented in this encounter Care Teams Trim Master Operator Relationship Specialty Start Date End Date Anthony Whittaker MD [address] [place] [address] PCP - General 10/09/1995 07/20/20 Royal Pierre MD [address] [place] [address] [phone] PCP - General Internal Medicine 07/21/20 12/27/23 [facility], Pcp [address] [place] [address] PCP - General Internal Medicine 12/28/23 Chel Montilla MD [address] [place] [address] Specialist Cardiology 02/25/21 Nubia Preston PA-C [address] [place] [address]883 Cardiology 05/24/21 01/28/23 Joseph Berg MD [address] [place] [address] Specialist Cardiology 01/24/23 Devika Bashir NP [address] [place] [address] Cardiology 01/29/23 documented as of this encounter
--- OUTSIDE RECORDS SUMMARY | 2024-11-10 15:01 | XMS_ITS | Encounter Summary ---
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 - 12/28/2021 3:27 PM EDT Primary Dual Pacemaker 32827 Dx SSS I49.5 w/ JPM at [facility] on 01.20.22 * Telephone Encounter - Heather Dong C.M.A. - 12/21/2021 12:03 PM EDT I gave JERRY EP order sheet to fill out appropriate vendors, tools and requirements to book procedure.When returned to vt by I will book arturo. documented in this encounter Plan of Treatment Not on file documented as of this encounter Visit Diagnoses Diagnosis SSS (sick sinus syndrome) (HCC)- Primary Sinoatrial node dysfunction documented in this encounter Care Teams Finishing Lab Technician Relationship Specialty Start Date End Date Royal Pierre MD [address] [place] [address] PCP - General Internal Medicine 07/21/20 12/27/23 [facility], Pcp [address] [place] [address] PCP - General Internal Medicine 12/28/23 Chel Montilla MD [address] [place] [address] Specialist Cardiology 02/25/21 Nubia Preston PA-C [address] [place], [place] [phone] Cardiology 05/24/21 01/28/23 Joseph Berg MD [address] [place] [address] Specialist Cardiology 01/24/23 Devika Bashir NP [address] [place] [address] Cardiology 01/29/23 documented as of this encounter
--- OUTSIDE RECORDS SUMMARY | 2024-11-10 15:01 | XMS_ITS | Encounter Summary ---
Author Organization [facility] Address [address] [place] [address] Care Team Providers Care Lining Brusher Name Role Phone Anthony Whittaker MD Primary Care Provider [phone] Royal Pierre MD Primary Care Provider [phone] Chel Montilla MD Unavailable Nubia Preston PA-C Unavailable Unavailab Joseph Thompson MD Unavailable [phone] Devika Bashir NP Unavailable Unavailable [facility], Pcp Primary Care Provider Unavailabl e Encounter Details Date Type Department Care Team Description 12/20/2017 Emts Report Medical Records [address] [place] [address] Go Ramos MD Social History Tobacco Use [...] on filedocumented in this encounter Care Teams Lining Brusher Relationship Specialty Start Date End Date Anthony Whittaker MD [address] [place] [address] [phone] PCP - General 10/09/1995 07/20/20 Royal Pierre MD [address] [place] [address] [phone] PCP - General Internal Medicine 07/21/20 12/27/23 [facility], Pcp [address] [place] [address] PCP - General Internal Medicine 12/28/23 Chel Montilla MD [address] [place] [address] Specialist Cardiology 02/25/21 Nubia Preston PA-C [address] [place] [address] Cardiology 05/24/21 01/28/23 Joseph Berg MD [address] [place] [address] Specialist Cardiology 01/24/23 Devika Bashir NP [address] [place] [address] Cardiology 01/29/23 documented as of this encounter
--- OUTSIDE RECORDS SUMMARY | 2024-11-10 15:02 | XMS_ITS | Encounter Summary ---
Author Organization [facility] Address [address] [place] [address] Care Team Providers Care Fire Crew Specialist Name Role Phone Royal Pierre MD Primary Care Provider [phone] Chel Montilla MD Unavailable Nubia Preston PA-C Unavailable Unavailab Joseph Thompson MD Unavailable [phone] Devika Bashir NP Unavailable Unavailable [facility], Pcp Primary Care Provider Unavailabl e Encounter Details Date Type Department Care Team Description 12/04/2022 Fun House Attendant Report Medical Records [address] [place] [address] Jocelynn Reese NP Social History Tobacco Use [...] on filedocumented in this encounter Care Teams Fire Crew Specialist Relationship Specialty Start Date End Date Royal Pierre MD [address] [place] [address] [phone] PCP - General Internal Medicine 07/21/20 12/27/23 [facility], Pcp [address] [place] [address] PCP - General Internal Medicine 12/28/23 Chel Montilla MD [address] [place] [address] [phone] Specialist Cardiology 02/25/21 Nubia Preston PA-C [address] [place] [address] Cardiology 05/24/21 01/28/23 Joseph Berg MD [address] [place], [place] [phone] Specialist Cardiology 01/24/23 Devika Bashir NP [address] [place] [address] Cardiology 01/29/23 documented as of this encounter
--- OUTSIDE RECORDS SUMMARY | 2024-11-10 15:02 | XMS_ITS | Encounter Summary ---
Author Organization [facility] Address [address] [place] [address] Care Team Providers Care Roll Filler Name Role Phone Royal Pierre MD Primary Care Provider [phone] Chel Montilla MD Unavailable Joseph Berg MD Unavailable [phone] Devika Bashir BIOLOGY ADJUNCT INSTRUCTOR Unavailable Unavailable [facility], Pcp Primary Care Provider Unavailabl e Encounter Details Date Type Department Care Team Description 12/12/2023 Director Of Nuclear Medicine Report Medical Records [address] [place] [address] Leila Merida MD Social History Tobacco Use [...] filedocumented in this encounter Care Teams Roll Filler Relationship Specialty Start Date End Date Royal Pierre MD [address] [place] [address] [phone] PCP - General Internal Medicine 07/21/20 12/27/23 [facility], Pcp [address] [place] [address] PCP - General Internal Medicine 12/28/23 Chel Montilla MD [address] [place] [address] [phone] Specialist Cardiology 02/25/21 Joseph Berg MD [address] [place] [address] Specialist Cardiology 01/24/23 Devika Bashir NP [address] [place] [address] Cardiology 01/29/23 documented as of this encounter
--- OUTSIDE RECORDS SUMMARY | 2024-11-10 15:02 | XMS_ITS | Encounter Summary ---
Author Organization [facility] Address [address] [place] [address] Care Team Providers Care Installers Mechanical Name Role Phone Anthony Whittaker MD Primary Care Provider [phone] Royal Pierre MD Primary Care Provider [phone] Chel Montilla MD Unavailable Nubia Preston PA-C Unavailable Unavailab Joseph Thompson MD Unavailable [phone] Devika Bashir NP Unavailable Unavailable [facility], Pcp Primary Care Provider Unavailabl e Encounter Details Date Type Department Care Team Description 03/27/2017 Info Specialist Report Medical Records [address] [place] [address] Ken Allen MD Social History Tobacco Use [...] on filedocumented in this encounter Care Teams Installers Mechanical Relationship Specialty Start Date End Date Anthony Whittaker MD [address] [place] [address] PCP - General 10/09/1995 07/20/20 Royal Pierre MD [address] [place] [address] PCP - General Internal Medicine 07/21/20 12/27/23 [facility], Pcp [address] [place] [address] PCP - General Internal Medicine 12/28/23 Chel Montilla MD [address] [place] [address] Specialist Cardiology 02/25/21 Nubia Preston PA-C [address] [place] [address] Cardiology 05/24/21 01/28/23 Joseph Berg MD [address] [place] [address] Specialist Cardiology 01/24/23 Devika Bashir NP [address] [place] [address] Cardiology 01/29/23 documented as of this encounter
--- OUTSIDE RECORDS SUMMARY | 2024-11-10 15:02 | XMS_ITS | Encounter Summary ---
Author Organization [facility] Address [address] [place] [address] Care Team Providers Care Experience Specialist Name Role Phone Anthony Whittaekr MD Primary Care Provider [phone] Royal Pierre MD Primary Care Provider [phone] Chel Montilla MD Unavailable Nubia Preston PA-C Unavailable Unavailab Joseph Thompson MD Unavailable [phone] Devika Bashir NP Unavailable Unavailable [facility], Pcp Primary Care Provider Unavailabl e Encounter Details Date Type Department Care Team Description 11/11/2011 Hospital Medical Records [address] [place] [address] Jase Sandra MD Social History Tobacco Use [...] on filedocumented in this encounter Care Teams Experience Specialist Relationship Specialty Start Date End Date Anthony Whittaker MD [address] [place] [address] PCP - General 10/09/1995 07/20/20 Royal Pierre MD [address] [place] [address] PCP - General Internal Medicine 07/21/20 12/27/23 [facility], Pcp [address] [place] [address] PCP - General Internal Medicine 12/28/23 Chel Montilla MD [address] [place] [address] Specialist Cardiology 02/25/21 Nubia Preston PA-C [address] [place] [address] Cardiology 05/24/21 01/28/23 Joseph Berg MD [address] [place] [address] Specialist Cardiology 01/24/23 Devika Bashir NP [address] [place] [address] Cardiology 01/29/23 documented as of this encounter
--- OUTSIDE RECORDS SUMMARY | 2024-11-10 15:02 | XMS_ITS | Encounter Summary ---
Author Organization [facility] Address [address] [place] [address] Care Team Providers Care Binding Nicker Name Role Phone Royal Pierre MD Primary Care Provider [phone] Chel Montilla MD Unavailable Nubia Preston PA-C Unavailable Unavailab Joseph Thompson MD Unavailable [phone] Devika Bashir NP Unavailable Unavailable [facility], Pcp Primary Care Provider Unavailabl e Encounter Details Date Type Department Care Team Description 01/15/2023 SCAN Medical Records [address] [place] [address] Abstract, Provider Social History Tobacco Use Types [...] Date/Time Associated Diagnosis Comments OUTSIDE LAB Routine 01/15/2023 documented in this encounter Results * OUTSIDE LAB (01/15/2023) Provider Default LAB documented in this encounter Visit Diagnoses Not on filedocumented in this encounter Care Teams Binding Nicker Relationship Specialty Start Date End Date Royal Pierre MD [address] [place] [address] PCP - General Internal Medicine 07/21/20 12/27/23 [facility], Pcp [address] [place] [address] PCP - General Internal Medicine 12/28/23 Chel Montilla MD [address] [place] [address] Specialist Cardiology 02/25/21 Nubia Preston PA-C [address] [place] [address] Cardiology 05/24/21 01/28/23 Joseph Berg MD [address] [place] [address] Specialist Cardiology 01/24/23 Devika Bashir NP [address] [place] [address] Cardiology 01/29/23 documented as of this encounter
--- OUTSIDE RECORDS SUMMARY | 2024-11-10 15:02 | XMS_ITS | Clinical Summary ---
Author Organization [facility] Address [address] [place] [address] Care Team Providers Care Welding Machine Operator Electro Gas Name Role Phone Chel Montilla MD Unavailable Joseph Berg MD Unavailable Devika Bashir NP Unavailable Unavailable [facility], Pcp [...] as frequent [place]. Prostate cancer 03/25/2021 Overview: [facility] Urology service with Dr. Guerra- bicalutamide initiated 03/11/21, radiation treatment at [facility] Ischemic cardiomyopathy 01/28/2021 Last Assessment & [...] & Plan: Excellent lipid profile CAD ANT PR 1990 V FIB EF 35% 08/24/2005 Overview: Exercise nuclear stress test - 10/25 - EF 61%; no reversible defects - sees dr. Smith at [facility] Last Assessment & Plan: Stable coronary disease [...] VACCINE Discontinued 06/15/2020, , 04/28/2010 Care Teams Welding Machine Operator Electro Gas Relationship Specialty Start Date End Date [facility], Pcp PCP - General Internal Medicine 12/28/23 Chel Montilla MD Specialist Cardiology 02/25/21 Joseph Berg MD Specialist Cardiology 01/24/23 Devika Bashir NP Cardiology 01/29/23
--- OUTSIDE RECORDS SUMMARY | 2024-11-10 15:02 | XMS_ITS | Encounter Summary ---
Author Organization [facility] Address [address] [place] [address] Care Team Providers Care Finance Professional Name Role Phone Royal Pierre MD Primary Care Provider [phone] Chel Montilla MD Unavailable Nubia Preston PA-C Unavailable Unavailab Joseph Thompson MD Unavailable [phone] Devika Bashir NP Unavailable Unavailable [facility], Pcp Primary Care Provider Unavailabl e Encounter Details Date Type Department Care Team Description 11/06/2021 Hospital Medical Records [address] [place], [place] [phone] [place] [address] Social History Tobacco Use Types Packs/Day Years [...] on filedocumented in this encounter Care Teams Finance Professional Relationship Specialty Start Date End Date Royal Pierre MD [address] [place] [address] PCP - General Internal Medicine 07/21/20 12/27/23 [facility], Pcp [address] [place] [address] PCP - General Internal Medicine 12/28/23 Chel Montilla MD [address] [place] [address] Specialist Cardiology 02/25/21 Nubia Preston PASaimaC [address] [place] [address] Cardiology 05/24/21 01/28/23 Joseph Berg MD [address] [place] [address] Specialist Cardiology 01/24/23 Devika Bashir NP [address] [place] [address] Cardiology 01/29/23 documented as of this encounter
--- OUTSIDE RECORDS SUMMARY | 2024-11-10 15:02 | XMS_ITS | Encounter Summary ---
Author Organization [facility] Address [address] [place] [address] Care Team Providers Care Navy Fighter Pilot Name Role Phone Anthony Whittaker MD Primary Care Provider [phone] Royal Pierre MD Primary Care Provider [phone] Chel Montilla MD Unavailable Nubia Preston PA-C Unavailable Unavailab Joseph Thompson MD Unavailable [phone] Devika Bashir NP Unavailable Unavailable [facility], Pcp Primary Care Provider Unavailabl e Encounter Details Date Type Department Care Team Description 10/17/2011 Typing Secretary Report Medical Records [address] [place] [address] Lee Gil MD Social History Tobacco Use [...] on filedocumented in this encounter Care Teams Navy Fighter Pilot Relationship Specialty Start Date End Date Anthony Whittaker MD [address] [place] [address] [phone] PCP - General 10/09/1995 07/20/20 Royal Pierre MD [address] [place] [address] [phone] PCP - General Internal Medicine 07/21/20 12/27/23 [facility], Pcp [address] [place] [address] PCP - General Internal Medicine 12/28/23 Chel Montilla MD [address] [place] [address] Specialist Cardiology 02/25/21 Nubia Preston PA-C [address] [place] [address] Cardiology 05/24/21 01/28/23 Joseph Berg MD [address] [place] [address] Specialist Cardiology 01/24/23 Devika Bashir NP [address] [place] [address] Cardiology 01/29/23 documented as of this encounter
--- OUTSIDE RECORDS SUMMARY | 2024-11-10 15:02 | XMS_ITS | Encounter Summary ---
Author Organization [facility] Address [address] [place] [address] Care Team Providers Care Sql Developer Dba Name Role Phone Royal Pierre MD Primary Care Provider [phone] Chel Montilla MD Unavailable Nubia Preston PA-C Unavailable Unavailab Joseph Thompson MD Unavailable [phone] Devika Bashir NP Unavailable Unavailable [facility], Pcp Primary Care Provider Unavailabl e Encounter Details Date Type Department Care Team Description 12/06/2021 Rn Procedures Report Medical Records [address] [place] [address] [phone] Social History Tobacco Use Types Packs/Day Years [...] on filedocumented in this encounter Care Teams Sql Developer Dba Relationship Specialty Start Date End Date Royal Pierre MD [address] [place], [place] [phone] PCP - General Internal Medicine 07/21/20 12/27/23 [facility], Pcp [address] [place] [address] PCP - General Internal Medicine 12/28/23 Chel Montilla MD [address] [place] [address] Specialist Cardiology 02/25/21 Nubia Preston PA-C [address] [place] [address] Cardiology 05/24/21 01/28/23 Joseph Berg MD [address] [place] [address] Specialist Cardiology 01/24/23 Devika Bashir NP [address] [place] [address] Cardiology 01/29/23 documented as of this encounter
--- OUTSIDE RECORDS SUMMARY | 2024-11-10 15:02 | XMS_ITS | Encounter Summary ---
Author Organization [facility] Address [address] [place] [address] Care Team Providers Care Rug Setter Velvet Name Role Phone Royal Pierre MD Primary Care Provider [phone] Chel Montilla MD Unavailable Nubia Preston PA-C Unavailable Unavailab Joseph Thompson MD Unavailable [phone] Devika Bashir NP Unavailable Unavailable [facility], Pcp Primary Care Provider Unavailabl e Reason for Visit * Reason Comments Remote Device Check ALERT: 10 seconds [place] Encounter Details Date Type Department Care Team Description 01/15/2023 Remote Device Check Cardio PVC POC 154 300 [facility] [address] [place], [place] [phone] Joseph Berg MD [address] [place] [address] [phone] Social History Tobacco Use Types Packs/Day Years [...] on filedocumented in this encounter Care Teams Rug Setter Velvet Relationship Specialty Start Date End Date Royal Pierre MD [address] [place] [address] PCP - General Internal Medicine 07/21/20 12/27/23 [facility], Pcp [address] [place] [address] PCP - General Internal Medicine 12/28/23 Chel Montilla MD [address] [place] [address] Specialist Cardiology 02/25/21 Nubia Preston PA-C [address] [place] [address] Cardiology 05/24/21 01/28/23 Joseph Berg MD [address] [place] [address] Specialist Cardiology 01/24/23 Devika Bashir NP [address] [place], [place] [phone] Cardiology 01/29/23 documented as of this encounter
--- OUTSIDE RECORDS SUMMARY | 2024-11-10 15:02 | XMS_ITS | Encounter Summary ---
Author Organization [facility] Address [address] [place] [address] Care Team Providers Care Rubber Tire Curer Name Role Phone Royal Pierre MD Primary Care Provider [phone] Chel Montilla MD Unavailable Nubia Preston PA-C Unavailable Unavailab Joseph Thompson MD Unavailable [phone] Devika Bashir NP Unavailable Unavailable [facility], Pcp Primary Care Provider Unavailabl e Reason for Visit * Reason Onset Date Comments medication problems 09/01/2022 Questions ab out Carvedilol (coreg) 6.25 Encounter Details Date Type Department Care Team Description 09/01/2022 Telephone Cardio PVCA Diag Testing 101 [address] [facility] [address] [place] [address] [phone] Chel Montilla MD [address] [place] [address] [phone] medication problems (Questions about Carvedilol (coreg) 6.25) [...] - 09/01/2022 11:47 AM EST Silvio from [facility], [address] [place] [address], has questions about Carvedilol (coreg) 6.25. Pls call [phone] documented in this encounter Plan of Treatment Not on file documented as of this encounter Visit Diagnoses Not on filedocumented in this encounter Care Teams Rubber Tire Curer Relationship Specialty Start Date End Date Royal Pierre MD [address] [place] [address] PCP - General Internal Medicine 07/21/20 12/27/23 [facility], Pcp [address] [place] [address] PCP - General Internal Medicine 12/28/23 Chel Montilla MD [address] [place] [address] Specialist Cardiology 02/25/21 Nubia Preston PA-C [address] [place] [address] Cardiology 05/24/21 01/28/23 Joseph Berg MD [address] [place] [address] Specialist Cardiology 01/24/23 Devika Bashir NP [address] [place] [address] Cardiology 01/29/23 documented as of this encounter
--- OUTSIDE RECORDS SUMMARY | 2024-11-10 15:02 | XMS_ITS | Encounter Summary ---
Author Organization [facility] Address [address] [place] [address] Care Team Providers Care Supervisor Public Health Nursing Name Role Phone Anthony Whittaker MD Primary Care Provider Royal Pierre MD Primary Care Provider Chel Montilla MD Unavailable Nubia Preston PA-C Unavailable Unavailab Joseph Thompson MD Unavailable [phone] Devika Bashir NP Unavailable Unavailable [facility], Pcp Primary Care Provider Unavailabl e Encounter Details Date Type Department Care Team Description 04/26/2020 Orders Only Adult Medicine [address] [phone] Reno Marie PA-C [address] [place] [address] [phone] Soft tissue mass Social History Tobacco Use [...] PA-C CT [facility] [address] [place] [address] documented in this encounter Visit Diagnoses Diagnosis Soft tissue mass Disorders of soft tissue, unspecified documented in this encounter Care Teams Supervisor Public Health Nursing Relationship Specialty Start Date End Date Anthony Whittaker MD [address] [place] [address] PCP - General 10/09/1995 07/20/20 Royal Pierre MD [address] [place] [address] PCP - General Internal Medicine 07/21/20 12/27/23 [facility], [address] [address] PCP - General Internal Medicine 12/28/23 Chel Montilla MD [address] [place] [address] Specialist Cardiology 02/25/21 Nubia Preston PA-C [address] [place] [address] Cardiology 05/24/21 01/28/23 Joseph Berg MD [address] [place] [address] Specialist Cardiology 01/24/23 Devika Bashir NP [address] [place] [address] Cardiology 01/29/23 documented as of this encounter
== END 2024-11-10 13:28 | disposition home or self-care (01) ==
LOC: HO.HCS 12:38
PROVIDERS: PCP Internal Medicine; Visit Provider Internal Medicine
DX: I25.10 Atherosclerotic heart disease of native coronary artery without angina pectoris (principal); I25.5 Ischemic cardiomyopathy; I47.20 Ventricular tachycardia, unspecified; Z95.810 Presence of automatic (implantable) cardiac defibrillator; I63.9 Cerebral infarction, unspecified; R55 Syncope and collapse
CPT/HCPCS: 93283; 99214; G2211

== ENCOUNTER → 2024-11-10 12:37 | Outpatient (BNVA) | payer MEDICARE, OTHER, SELFPAY | PROVIDERS: PCP Internal Medicine; Visit Provider Internal Medicine | DX: I25.10 Atherosclerotic heart disease of native coronary artery without angina pectoris (principal); I25.5 Ischemic cardiomyopathy; I47.20 Ventricular tachycardia, unspecified; R55 Syncope and collapse; Z95.810 Presence of automatic (implantable) cardiac defibrillator; Z86.73 Personal history of transient ischemic attack (TIA), and cerebral infarction without residual deficits | CPT/HCPCS: 99212 ==

== ENCOUNTER → 2024-12-22 23:59 | Outpatient (BNV) | payer MEDICARE, OTHER, SELFPAY ==
--- NOTE | 2024-12-25 08:48 | A.OFFVIS_ITS ---
Intake Visit Reasons: Remote ICD check-Biotronik Allergies No Known Allergies [No Known Allergies*] Allergy (Verified 10/22/24 13:34) [facility] Medical History Pulmonary fibrosis Colonic mass Allergies Dental abscess Dysphagia Elevated PSA Abrasion Bursitis of left shoulder Joint pain Effusion, left knee Prostate nodule Microscopic hematuria Bladder outlet obstruction Pes anserinus bursitis of right knee Effusion, right knee Ventricular tachycardia Ischemic cardiomyopathy Atherosclerotic cardiovascular disease Cardiomyopathy Pacemaker ILD (interstitial lung disease) Pulmonary nodules COPD (chronic obstructive pulmonary disease) Bursitis of right shoulder Medial meniscus tear Osteoarthritis of right knee Surgical History History of carpal tunnel release History of cholecystectomy History of tonsillectomy History of colonoscopy Family History Father No problems noted. Mother No problems noted. Son No problems noted. Social History Household Members: Spouse Housing: House Are you a primary palliative care specialist to a significant other at home: No Do you presently have visiting nurse or other home services: No Alcohol intake: current Alcohol intake frequency: does not drink Alcohol type: beer Comment: once Q 3-6 month glass of wine Patient Tobacco Use Status: Former Tobacco user Tobacco use type: Cigarette Years Smoked: 30 years e-Cigarette/Vaping Use: Never Used Second Hand Smoke Exposure: Yes Advance Directives Date on File: 06/24/23 service: No Current occupational status: retired 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 Cognitive needs: No Hearing needs: Yes Vision needs: Yes Office Procedures Cardiac Device Check Cardiac Device Check Details: Date of service- 12/22/2024 ; Battery status ok; normal lead parameters; AP %; [employer] %; no significant arrhythmias. Overall normal device function. [id number] Cardiac Device Interrogation, pacemaker Procedure code (CPT) selection complete Assessment & Plan Assessment & Plan (1) Presence of implantable cardioverter-defibrillator (ICD): Code(s): Z95.810 - Presence of automatic (implantable) cardiac defibrillator Category: Surgical (2) Ischemic cardiomyopathy: Code(s): I25.5 - Ischemic cardiomyopathy Category: Medical Plan x Coding Level of Care Code Procedure Only Diagnoses Presence of implantable cardioverter-defibrillator (ICD) Z95.810 Ischemic cardiomyopathy I25.5 CPT Codes Cardiac Device Check - Cardiac Device 12: [id number] Cardiac Device Interrogation, pacemaker ([id number])
== END ==
PROVIDERS: PCP Internal Medicine; Visit Provider Internal Medicine
DX: I25.5 Ischemic cardiomyopathy (principal); Z95.810 Presence of automatic (implantable) cardiac defibrillator
CPT/HCPCS: 93295

== ENCOUNTER 2024-12-25 13:22 | Outpatient (AMB) | payer MEDICARE, OTHER, SELFPAY ==
--- NOTE | 2024-12-25 13:28 | A.OFFPC_ITS ---
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: Present Accompanied by: Self / Same As Patient Allergies No Known Allergies [No Known Allergies*] Allergy (Verified 12/25/24 13:32) Medication List - Last Reconciled 12/25/24 by Leila Merida MD alendronate 70 mg PO QWEEK allopurinol 100 mg PO DAILY aspirin 81 mg PO DAILY atorvastatin 40 mg PO BEDTIME cholecalciferol (vitamin D3) 25 mcg (1/2 x 50 mcg (2,000 unit)) PO DAILY opxqxckhoag-crmljhqai-ltclcyrv 200-62.5-25 mcg (Trelegy Ellipta) 1 ea PO DAILY guaifenesin ER (Mucinex) 1,200 mg PO BID metoprolol succinate ER (Toprol XL) 25 mg PO DAILY montelukast (Singulair) 10 mg PO BEDTIME 30 days sacubitril-valsartan 24-26 mg (Entresto) 1 tab PO BID 90 days tamsulosin 0.4 mg PO BEDTIME 90 days Tobacco use date assessed: 10/22/24 Dental Screening Dental Screen Date: 07/25/24 [facility] Medical History Pulmonary fibrosis Colonic mass Allergies Dental abscess Dysphagia Elevated PSA Abrasion Bursitis of left shoulder Joint pain Effusion, left knee Prostate nodule Microscopic hematuria Bladder outlet obstruction Pes anserinus bursitis of right knee Effusion, right knee Ventricular tachycardia Ischemic cardiomyopathy Atherosclerotic cardiovascular disease Cardiomyopathy Pacemaker ILD (interstitial lung disease) Pulmonary nodules COPD (chronic obstructive pulmonary disease) Bursitis of right shoulder Medial meniscus tear Osteoarthritis of right knee Surgical History History of carpal tunnel release History of cholecystectomy History of tonsillectomy History of colonoscopy Family History Father No problems noted. Mother No problems noted. Son No problems noted. Social History Household Members: Spouse Housing: House Are you a primary caretaker grounds to a significant other at home: No Do you presently have visiting nurse or other home services: No Alcohol intake: current Alcohol intake frequency: does not drink Alcohol type: beer Comment: once Q 3-6 month glass of wine Patient Tobacco Use Status: Former Tobacco user Tobacco use type: Cigarette Years Smoked: 30 years e-Cigarette/Vaping Use: Never Used Second Hand Smoke Exposure: Yes Advance Directives Date on File: 06/24/23 service: No Current occupational status: retired 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 Cognitive needs: No Hearing needs: Yes Vision needs: Yes Questionnaire PHQ-9 Over the last 2 weeks, how often have you been bothered by any of the following problems? 1. Little interest or pleasure in doing things: not at all 2. Feeling down, depressed, or hopeless: not at all 3. Trouble falling or staying asleep, or sleeping too much: not at all 4. Feeling tired or having little energy: not at all 5. Poor appetite or overeating: not at all 6. Feeling bad about yourself - or that you are a failure or have let yourself or your family down: not at all 7. Trouble concentrating on things, such as reading the newspaper or watching television: not at all 8. Moving or speaking so slowly that other people could have noticed. Or the opposite - being so fidgety or restless that you have been moving around a lot more than usual: not at all 9. Thoughts that you would be better off or of hurting yourself in some way: not at all Total score: 0 Depression Screening Interpretation: Negative Depression Screening Done: Yes Source: Developed by Drs. Deacon Rod, Paulette Rose, Aurelio Lopez and colleagues, with an educational dell from [employer]. Thrive Questionnaire Date Thrive assessed: 12/25/24 I am a: Patient What is your living situation today?: I have a steady place to live Within the past 12 months, did the food you bought not last and you didn't have the money to get more?: Never true Within the past 12 months, did you worry whether your food would run out before you got money to buy more?: Never true Do you have trouble paying for medicines?: No Do you have trouble getting transportation to medical appointments?: No Do you have trouble paying your heating and electricity bill?: No Do you have trouble taking care of your child, family member or friend?: No Do you have trouble with day-to-day activities such as bathing, preparing meals, shopping, managing finances, etc.?: No Are you currently unemployed and looking for a job?: No Are you interested in more education?: No Please select the resources that you would like help with: None THRIVE Score: 0 AUDIT C Alcohol Use Questionnaire (AUDIT-C) 1. How often do you have a drink containing alcohol?: Never 3. How often do you have six or more drinks on one occasion?: Never Total Score: 0 Score Reviewed/Action Taken: Yes CORINNE-7 AMB Questionnaire CORINNE-7 Date CORINNE - 7 assessed: 12/25/24 Feeling nervous, anxious, or on edge: 0 = Not at all Not being able to stop or control worryin = Not at all Worrying too much about different things: 0 = Not at all Trouble relaxin = Not at all Being so restless that it is hard to sit still: 0 = Not at all Becoming easily annoyed or irritable: 0 = Not at all Feeling afraid as if something awful might happen: 0 = Not at all Total CORINNE-7 score (0-4 normal; 5-9 mild; 10-14 moderate; 15-21 severe): 0 Source: Developed by Drs. Deacon Rod, Paulette Rose, Aurelio Lopez and colleagues, with an educational dell from [employer]. Physical exam (Primary Care) Vital Signs: Last Vital Signs Pulse 66 12/25/24 13:29 Resp 20 12/25/24 13:29 BP 136/68 12/25/24 13:29 Pulse Ox 94 12/25/24 13:29 Oxygen Delivery Method Room Air 12/25/24 13:29 Tobacco/Smoking Status: Tobacco use Status Tobacco use date assessed 10/22/24 12/25/24 13:32 Patient Tobacco Use Status Former Tobacco user 12/25/24 13:32 Tobacco use type Cigarette 12/25/24 13:32 e-Cigarette/Vaping Use Never Used 12/25/24 13:32 PHQ-9: PHQ-9 Score PHQ-9: Total score 0 12/25/24 14:04 Depression Screening Interpretation: Negative Thrive Assessment: Date of Thrive Assessment Date Thrive assessed 12/25/24 12/25/24 13:32 Const General: alert; No acute distress Eyes Conjunctivae: conjunctivae normal Resp Auscultation: clear to auscultation bilaterally Cardio Rate: regular rate Rhythm: regular rhythm GI Inspection: Yes normal to inspection Extrem General: Yes normal to inspection and No edema Coding Level of Care Code Est Pt Level 4 (92167) Complex EM visit Add On G2211 Diagnoses Ischemic cardiomyopathy I25.5 Atherosclerotic cardiovascular disease I25.10 Ventricular tachycardia I47.20 Presence of implantable cardioverter-defibrillator (ICD) Z95.810 ILD (interstitial lung disease) J84.9 Prostate cancer C61 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 COPD type: chronic bronchitis Chronic bronchitis type: simple Impaired glucose tolerance R73.02 Assessment & Plan Assessment & Plan (1) Ischemic cardiomyopathy: Code(s): I25.5 - Ischemic cardiomyopathy Category: Medical Plan: Continue with Entresto and metoprolol reintroduction done (2) Atherosclerotic cardiovascular disease: Code(s): I25.10 - Atherosclerotic heart disease of [place] coronary artery without angina pectoris Category: Medical Plan: Control the cholesterol, weight, blood pressure continue with aspirin (3) Ventricular tachycardia: Code(s): I47.20 - Ventricular tachycardia, unspecified Category: Medical Plan: Continue to follow-up with cardiology and metoprolol was reintroduced (4) Presence of implantable cardioverter-defibrillator (ICD): Code(s): Z95.810 - Presence of automatic (implantable) cardiac defibrillator Category: Surgical Plan: Patient follows up with Cardiology (5) ILD (interstitial lung disease): Code(s): J84.9 - Interstitial pulmonary disease, unspecified Category: Medical Plan: Patient follows up with Pulmonary on Trelegy montelukast (6) Prostate cancer: Comment: 04/05 High-grade, moderate volume, localized disease Initial therapy external beam radiation with [facility] August 2021 Code(s): C61 - Malignant neoplasm of prostate Category: Medical Plan: Continue to follow-up with urology for surveillance (7) COPD (chronic obstructive pulmonary disease): Code(s): J44.9 - Chronic obstructive pulmonary disease, unspecified Category: Medical Qualifiers: COPD type: chronic bronchitis Chronic bronchitis type: simple Qualified Code(s): J41.0 - Simple chronic bronchitis Plan: Continue on pulmonary medications. (8) Impaired glucose tolerance: Code(s): R73.02 - Impaired glucose tolerance (oral) Category: Medical Plan: Decrease the amount of carbohydrate intake, pasta, bread, rice and potatoes are all sugar and that is aside from all the sweet stuff, remember that fruits are good but they are Sweet also. Plan History of Present Illness The patient is an 84-year-old male presenting for a follow-up visit. He has a history of Chronic Obstructive Pulmonary Disease (COPD), polymyalgia rheumatica, prostate cancer diagnosed in 2020, interstitial lung disease, and a cerebrovascular accident. The patient also has a history of atherosclerotic cardiovascular disease with ischemic cardiomyopathy, hypertension, hypercholesterolemia, and impaired glucose tolerance. The patient has an implantable cardioverter-defibrillator (ICD) and follows up regularly with cardiology. He underwent a nuclear stress test in January 2023, which showed mild eric-infarct ischemia in the left anterior descending artery territory with an ejection fraction of 50 to 55%. He is currently on medications including statins, aspirin, Entresto, and metoprolol, which was recently reintroduced due to issues with bradycardia and ventricular tachycardia. The patient reports mild anemia and low sodium levels from his last blood work in July, with normal renal function. His blood sugar was 118 mg/dL, and hemoglobin A1c was 5.9% in April. His LDL cholesterol was 51 mg/dL in July, and his PSA was undetectable in September. He has been advised to continue with his current medications and follow up with cardiology, pulmonary, and urology for ongoing surveillance and management. The patient also follows a regimen of Trelegy and montelukast for his pulmonary conditions. He has been recommended to have a bone density test and to monitor his vitamin D levels, with a recent increase in dosage. Health Maintenance - Bone density screening recommended - Vitamin D supplementation increased - Regular follow-up with cardiology, pulmonary, and urology - Vaccinations up to date, including shingles and tetanus Social History - Family: Lives with family, including mother and two children, one in college and one completed postgrad studies - Exercise: Walks daily, covering a couple of miles - Nutrition: Eats healthy, prefers home-cooked meals, avoids large meals out Review of Systems - Cardiovascular: Reports bradycardia and ventricular tachycardia - Respiratory: Denies breathing difficulties, reports clear lung sounds - Endocrine: Reports hot flashes due to hormone therapy - Musculoskeletal: Reports muscle mass loss, difficulty with heavy lifting - Ophthalmologic: Reports cataracts, considering surgery Physical Exam - Respiratory: Lungs clear to auscultation bilaterally Results - Labs: Mild anemia, low sodium levels, normal renal function (July) - Labs: Blood sugar 118 mg/dL, Hemoglobin A1c 5.9% (April) - Labs: LDL cholesterol 51 mg/dL (July), PSA undetectable (September) - Imaging: Nuclear stress test showed mild eric-infarct ischemia in LAD territory, EF 50-55% (January 2023) Plan The patient will continue with his current medication regimen, including Entresto, metoprolol, statins, and aspirin, to manage his cardiovascular conditions. Regular follow-ups with cardiology are advised to monitor the ICD and address any issues related to bradycardia and ventricular tachycardia. For his pulmonary conditions, the patient will continue using Trelegy and montelukast, with regular follow-ups with pulmonary specialists. A bone density test is recommended to assess bone health, and vitamin D supplementation has been increased to support this. The patient is advised to maintain a healthy diet, focusing on plant-based proteins, and to engage in regular physical activity, including walking and light weightlifting, to address muscle mass loss. Regular urology follow-ups are necessary for prostate cancer surveillance, and cataract surgery is being considered for vision improvement. Patient was informed and verbally consented to the use of an ambient scribe for clinic note documentation during this visit. Discussion Notes During the visit, I discussed with the patient the importance of continuing his current medications, including Entresto and metoprolol, to manage his cardiovascular health. We reviewed the need for regular cardiology follow-ups to monitor his ICD and address any bradycardia or ventricular tachycardia issues. I emphasized the importance of maintaining his pulmonary regimen with Trelegy and montelukast and the need for regular pulmonary follow-ups. We also discussed the recommendation for a bone density test and the increase in vitamin D supplementation to support bone health. The patient was advised to maintain a healthy diet, focusing on plant-based proteins, and to engage in regular ph ysical activity to address muscle mass loss. We also talked about the need for regular urology follow-ups for prostate cancer surveillance and the consideration of cataract surgery for vision improvement. Patient Instructions - Continue taking Entresto, metoprolol, statins, and aspirin as prescribed. - Follow up with cardiology regularly to monitor ICD and address any heart- related issues. - Use Trelegy and montelukast as directed and follow up with pulmonary specialists. - Schedule a bone density test and increase vitamin D intake as advised. - Maintain a healthy diet with plant-based proteins and engage in regular physical activity. - Continue regular urology follow-ups and consider cataract surgery for vision improvement. Orders: Orders Complete Blood Count Auto Diff Today I25.10 - Atherosclerotic heart disease of [place] coronary artery without angina pectoris Magnesium Today I25.10 - Atherosclerotic heart disease of [place] coronary artery without angina pectoris Thyroid Stimulating Hormone Today I25.10 - Atherosclerotic heart disease of [place] coronary artery without angina pectoris Hemoglobin A1c Today I25.10 - Atherosclerotic heart disease of [place] coronary artery without angina pectoris IRON PROFILE Today I25.10 - Atherosclerotic heart disease of [place] coronary artery without angina pectoris Reticulocyte Count Today I25.10 - Atherosclerotic heart disease of [place] coronary artery without angina pectoris XR DEXA axial skeleton Today C61 - Malignant neoplasm of prostate, M81.0 - Age- related osteoporosis without current pathological fracture Comprehensive Met. Panel Today I25.10 - Atherosclerotic heart disease of [place] coronary artery without angina pectoris Free T4 (Free Thyroxine) Today I25.10 - Atherosclerotic heart disease of [place] coronary artery without angina pectoris Lipid Panel Today E78.00 - Pure hypercholesterolemia, unspecified, I25.10 - Atherosclerotic heart disease of [place] coronary artery without angina pectoris Vitamin B12 and Folate Today I25.10 - Atherosclerotic heart disease of [place] coronary artery without angina pectoris Ferritin Today I25.10 - Atherosclerotic heart disease of [place] coronary artery without angina pectoris Medications: Changed From cholecalciferol (vitamin D3) 25 mcg PO DAILY 30 caps 2RF M85.80 - Other specified disorders of bone density and structure, unspecified site To cholecalciferol (vitamin D3) 25 mcg (1/2 x 50 mcg (2,000 unit)) PO DAILY 90 c aps 2RF M85.80 - Other specified disorders of bone density and structure, unspecified site
[2024-12-25 13:29] VITALS: BP 136/68; PULSE 66; RESP 20; O2SAT 94
--- OUTSIDE RECORDS SUMMARY | 2024-12-25 15:36 | XMS_ITS | Encounter Summary ---
Author Organization [facility] Address [address] [place] [address] Care Team Providers Care Citrix Engineer Name Role Phone Anthony Whittaker MD Primary Care Provider [phone] Royal Pierre MD Primary Care Provider [phone] Chel Montilla MD Unavailable Nubia Preston PA-C Unavailable Unavailab Joseph Thompson MD Unavailable [phone] Devika Bashir NP Unavailable Unavailable [facility], Pcp Primary Care Provider Unavailabl e Encounter Details Date Type Department Care Team Description 05/13/2018 Driver Manager Report Medical Records [address] [place] [id number] Juice Aguilera PA-C [address] [place] [id number] Social History Tobacco Use Types Packs/Day Years [...] on filedocumented in this encounter Care Teams Citrix Engineer Relationship Specialty Start Date End Date Anthony Whittaker MD [address] [place] [id number] PCP - General 10/09/1995 07/20/20 Royal Pierre MD [address] [place] [address] PCP - General Internal Medicine 07/21/20 12/27/23 [facility], Pcp [address] [place] [address] PCP - General Internal Medicine 12/28/23 Chel Montilla MD [address] [place] [address] Specialist Cardiology 02/25/21 Nubia Preston PA-C [address] [place] [address] Cardiology 05/24/21 01/28/23 Joseph Berg MD [address] [place] [address] Specialist Cardiology 01/24/23 Devika Bashir NP [address] [place] [id number] Cardiology 01/29/23 documented as of this encounter
== END 2024-12-25 14:21 | disposition home or self-care (01) ==
LOC: HO.HMCH 13:23
PROVIDERS: PCP Internal Medicine; Visit Provider Internal Medicine
DX: I47.20 Ventricular tachycardia, unspecified (principal); J84.9 Interstitial pulmonary disease, unspecified; C61 Malignant neoplasm of prostate; J41.0 Simple chronic bronchitis; I25.5 Ischemic cardiomyopathy; I25.10 Atherosclerotic heart disease of native coronary artery without angina pectoris; Z95.810 Presence of automatic (implantable) cardiac defibrillator; R73.02 Impaired glucose tolerance (oral)

== ENCOUNTER → 2024-12-25 13:22 | Outpatient (BNVA) | payer MEDICARE, OTHER, SELFPAY | PROVIDERS: PCP Internal Medicine; Visit Provider Internal Medicine | DX: I25.5 Ischemic cardiomyopathy (principal); I25.10 Atherosclerotic heart disease of native coronary artery without angina pectoris; I47.20 Ventricular tachycardia, unspecified; J84.9 Interstitial pulmonary disease, unspecified; J41.0 Simple chronic bronchitis; C61 Malignant neoplasm of prostate; R73.02 Impaired glucose tolerance (oral); Z95.810 Presence of automatic (implantable) cardiac defibrillator | CPT/HCPCS: 99212 ==

== ENCOUNTER → 2024-12-30 23:59 | Outpatient (BNV) | payer MEDICARE, OTHER, SELFPAY ==
--- NOTE | 2025-01-04 09:37 | MHC.OFFVIS ---
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 Allergies No Known Allergies (No Known Allergies*) Allergy (Verified 12/25/24 13:32) [facility] Medical History Pulmonary fibrosis Colonic mass Allergies Dental abscess Dysphagia Elevated PSA Abrasion Bursitis of left shoulder Joint pain Effusion, left knee Prostate nodule Microscopic hematuria Bladder outlet obstruction Pes anserinus bursitis of right knee Effusion, right knee Ventricular tachycardia Ischemic cardiomyopathy Atherosclerotic cardiovascular disease Cardiomyopathy Pacemaker ILD (interstitial lung disease) Pulmonary nodules COPD (chronic obstructive pulmonary disease) Bursitis of right shoulder Medial meniscus tear Osteoarthritis of right knee Surgical History History of carpal tunnel release History of cholecystectomy History of tonsillectomy History of colonoscopy Family History Father No problems noted. Mother No problems noted. Son No problems noted. Social History Household Members: Spouse Housing: House Are you a primary rn long term care to a significant other at home: No Do you presently have visiting nurse or other home services: No Alcohol intake: current Alcohol intake frequency: does not drink Alcohol type: beer Comment: once Q 3-6 month glass of wine Patient Tobacco Use Status: Former Tobacco user Tobacco use type: Cigarette Years Smoked: 30 years e-Cigarette/Vaping Use: Never Used Second Hand Smoke Exposure: Yes Advance Directives Date on File: 06/24/23 service: No Current occupational status: retired 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 Cognitive needs: No Hearing needs: Yes Vision needs: Yes Office Procedures Cardiac Device Check Cardiac Device Check Details: Date of service- 12/30/2024; based on impedance data and physiological variables, there is no evidence of worsening congestive heart failure. [id number] Cardiac Device Interrogation, cardio physiologic monitor Procedure code (CPT) selection complete Assessment & Plan Assessment & Plan (1) ICD (implantable cardioverter-defibrillator) in place: Code(s): Z95.810 - Presence of automatic (implantable) cardiac defibrillator Category: Medical (2) Ischemic cardiomyopathy: Code(s): I25.5 - Ischemic cardiomyopathy Category: Medical Plan x Coding Level of Care Code Procedure Only Diagnoses ICD (implantable cardioverter-defibrillator) in place Z95.810 Ischemic cardiomyopathy I25.5 CPT Codes Cardiac Device Check - Cardiac Device 15: [id number] Cardiac Device Interrogation, cardio physiologic monitor ([id number])
== END ==
PROVIDERS: PCP Internal Medicine; Visit Provider Internal Medicine
DX: I25.5 Ischemic cardiomyopathy (principal); Z95.810 Presence of automatic (implantable) cardiac defibrillator
CPT/HCPCS: 93297

== ENCOUNTER → 2025-02-20 23:59 | Outpatient (BNV) | payer MEDICARE, OTHER, SELFPAY ==
--- NOTE | 2025-02-25 20:16 | A.OFFVIS_ITS ---
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 Allergies No Known Allergies (No Known Allergies*) Allergy (Verified 12/25/24 13:32) [facility] Medical History Pulmonary fibrosis Colonic mass Allergies Dental abscess Dysphagia Elevated PSA Abrasion Bursitis of left shoulder Joint pain Effusion, left knee Prostate nodule Microscopic hematuria Bladder outlet obstruction Pes anserinus bursitis of right knee Effusion, right knee Ventricular tachycardia Ischemic cardiomyopathy Atherosclerotic cardiovascular disease Cardiomyopathy Pacemaker ILD (interstitial lung disease) Pulmonary nodules COPD (chronic obstructive pulmonary disease) Bursitis of right shoulder Medial meniscus tear Osteoarthritis of right knee Surgical History History of carpal tunnel release History of cholecystectomy History of tonsillectomy History of colonoscopy Family History Father No problems noted. Mother No problems noted. Son No problems noted. Social History Household Members: Spouse Housing: House Are you a primary campground caretaker to a significant other at home: No Do you presently have visiting nurse or other home services: No Alcohol intake: current Alcohol intake frequency: does not drink Alcohol type: beer Comment: once Q 3-6 month glass of wine Patient Tobacco Use Status: Former Tobacco user Tobacco use type: Cigarette Years Smoked: 30 years e-Cigarette/Vaping Use: Never Used Second Hand Smoke Exposure: Yes Advance Directives Date on File: 06/24/23 service: No Current occupational status: retired 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 Cognitive needs: No Hearing needs: Yes Vision needs: Yes Office Procedures Cardiac Device Check Cardiac Device Check Details: Date of service- 02/20/2025; based on impedance data and physiological variables, there is no evidence of worsening congestive heart failure. [id number] Cardiac Device Interrogation, cardio physiologic monitor Procedure code (CPT) selection complete Assessment & Plan Assessment & Plan (1) Presence of implantable cardioverter-defibrillator (ICD): Code(s): Z95.810 - Presence of automatic (implantable) cardiac defibrillator Category: Surgical (2) Ischemic cardiomyopathy: Code(s): I25.5 - Ischemic cardiomyopathy Category: Medical Plan x Coding Level of Care Code Procedure Only Diagnoses Presence of implantable cardioverter-defibrillator (ICD) Z95.810 Ischemic cardiomyopathy I25.5 CPT Codes Cardiac Device Check - Cardiac Device 15: [id number] Cardiac Device Interrogation, cardio physiologic monitor ([id number])
== END ==
PROVIDERS: Visit Provider Internal Medicine
DX: I25.5 Ischemic cardiomyopathy (principal); Z95.810 Presence of automatic (implantable) cardiac defibrillator
CPT/HCPCS: 93297

== ENCOUNTER 2025-03-17 08:15 | Outpatient (REF) | payer MEDICARE, OTHER, SELFPAY ==
[2025-03-17 08:45] LABS: MANUAL DIFF FLAG NO
--- OUTSIDE RECORDS SUMMARY | 2025-03-17 08:50 | XMS_ITS | Encounter Summary ---
Author Organization [facility] Address [address] [place] [address] Care Team Providers Care Grocery Shopper Name Role Phone Anthony Whittaker MD Primary Care Provider [phone] Royal Pierre MD Primary Care Provider [phone] Chel Montilla MD Unavailable Nubia Preston PA-C Unavailable Unavailab Joseph Thompson MD Unavailable [phone] Devika Bashir NP Unavailable Unavailable Replaced By [facility], Pcp Primary Care Provider Unavailabl e Encounter Details Date Type Department Care Team Description 06/12/2018 Service Department Manager Report Medical Records [address] [place] [address] [facility] Social History Tobacco Use Types Packs/Day Years [...] on filedocumented in this encounter Care Teams Grocery Shopper Relationship Specialty Start Date End Date Anthony Whittaker MD [address] [place] [address] PCP - General 10/09/1995 07/20/20 Royal Pierre MD [address] [place] [address] PCP - General Internal Medicine 07/21/20 12/27/23 [facility], Pcp [address] [place] [address] PCP - General Internal Medicine 12/28/23 Chel Montilla MD [address] [place] [address] Specialist Cardiology 02/25/21 Nubia Preston PA-C [address] [place] [address] Cardiology 05/24/21 01/28/23 Joseph Berg MD [address] [place] [address] Specialist Cardiology 01/24/23 Devika Bashir NP [address] [place] [address] Cardiology 01/29/23 documented as of this encounter
--- OUTSIDE RECORDS SUMMARY | 2025-03-17 08:50 | XMS_ITS | Encounter Summary ---
Author Organization [facility] Address [address] [place] [address] Care Team Providers Care Eggs Inspector Name Role Phone Royal Pierre MD Primary Care Provider [phone] Chel Montilla MD Unavailable Nubia Preston PA-C Unavailable Unavailab Joseph Thompson MD Unavailable [phone] Devika Bashir NP Unavailable Unavailable [facility], Pcp Primary Care Provider Unavailabl e Encounter Details Date Type Department Care Team Description 02/16/2021 Ore Storage Drier Report Medical Records [address] [place] [address] Husam Guerra MD Social History Tobacco Use [...] on filedocumented in this encounter Care Teams Eggs Inspector Relationship Specialty Start Date End Date Royal Peirre MD [address] [place] [address] PCP - General Internal Medicine 07/21/20 12/27/23 [facility], Pcp [address] [place] [address] PCP - General Internal Medicine 12/28/23 Chel Montilla MD [address] [place] [address] Specialist Cardiology 02/25/21 Nubia Preston PA-C [address] [place] [address] Cardiology 05/24/21 01/28/23 Joseph Berg MD [address] [place] [address] Specialist Cardiology 01/24/23 Devika Bsahir NP [address] [place] [address] Cardiology 01/29/23 documented as of this encounter
--- OUTSIDE RECORDS SUMMARY | 2025-03-17 08:50 | XMS_ITS | Encounter Summary ---
Author Organization [facility] Address [address] [place] [address] Care Team Providers Care Crimping Machine Operator Name Role Phone Anthony Whittaker MD Primary Care Provider Roayl Pierre MD Primary Care Provider [phone] Chel Montilla MD Unavailable Nubia Preston PA-C Unavailable Unavailab Joseph Thompson MD Unavailable [phone] Devika Bashir NP Unavailable Unavailable [facility], Pcp Primary Care Provider Unavailabl e Encounter Details Date Type Department Care Team Description 05/08/2018 Timber Framer Report Medical Records [address] [place] [address] Marian Otero Social History Tobacco Use Types [...] on filedocumented in this encounter Care Teams Crimping Machine Operator Relationship Specialty Start Date End Date Anthony Whittaker MD [address] [place] [address] PCP - General 10/09/1995 07/20/20 Royal Pierre MD [address] [place] [address] PCP - General Internal Medicine 07/21/20 12/27/23 [facility], Pcp [address] [place] [address] PCP - General Internal Medicine 12/28/23 Chel Montilla MD [address] [place] [address] Specialist Cardiology 02/25/21 Nubia Preston PA-C [address] [place] [address] Cardiology 05/24/21 01/28/23 Joseph Berg MD [address] [place] [address] Specialist Cardiology 01/24/23 Devika Bashir NP [address] [place] [address] Cardiology 01/29/23 documented as of this encounter
--- OUTSIDE RECORDS SUMMARY | 2025-03-17 08:50 | XMS_ITS | Encounter Summary ---
Author Organization [facility] Address [address] [place] [address] Care Team Providers Care Workers' Compensation Commissioner Name Role Phone Anthony Whittaker MD Primary Care Provider [phone] Royal Pierre MD Primary Care Provider [phone] Chel Montilla MD Unavailable Nubia Preston PA-C Unavailable Unavailab Joseph Thompson MD Unavailable [phone] Devika Bashir NP Unavailable Unavailable [facility], Pcp Primary Care Provider Unavailabl e Encounter Details Date Type Department Care Team Description 11/22/2015 Designer Writer Report Medical Records [address] [place] [address] Ken Allen MD Social History Tobacco Use [...] on filedocumented in this encounter Care Teams Workers' Compensation Commissioner Relationship Specialty Start Date End Date Anthony Whittaker MD [address] [place] [address] [phone] PCP - General 10/09/1995 07/20/20 Royal Pierre MD [address] [place] [address] PCP - General Internal Medicine 1/6/21 6/13/24 [facility], Pcp [address] [phone] PCP - General Internal Medicine 12/28/23 Chel Montilla MD [address] [place] [address] Specialist Cardiology 02/25/21 Nubia Preston PA-C [address] [place] [address] Cardiology 05/24/21 01/28/23 Joseph Berg MD [address] [place] [address] Specialist Cardiology 01/24/23 Devika Bashir NP [address] [place] [address] Cardiology 01/29/23 documented as of this encounter
--- OUTSIDE RECORDS SUMMARY | 2025-03-17 08:50 | XMS_ITS | Encounter Summary ---
Author Organization [facility] Address [address] [place] [address] Care Team Providers Care Cattle Trader Name Role Phone Royal Pierre MD Primary Care Provider [phone] Chel Montilla MD Unavailable uNbia Preston PA-C Unavailable Unavailab Joseph Thompson MD Unavailable [phone] Devika Bashir NP Unavailable Unavailable [facility], Pcp Primary Care Provider Unavailabl e Encounter Details Date Type Department Care Team Description 05/14/2021 Hospital Medical Records [address] [place] [address] Social History Tobacco Use Types Packs/Day Years [...] on filedocumented in this encounter Care Teams Cattle Trader Relationship Specialty Start Date End Date Royal Pierre MD [address] [place] [address] PCP - General Internal Medicine 07/21/20 12/27/23 [facility], Pcp [address] [place] [address] PCP - General Internal Medicine 12/28/23 Chel Montilla MD [address] [place] [address] Specialist Cardiology 02/25/21 Nubia Preston PA-C [address] [place] [address] Cardiology 05/24/21 01/28/23 Joseph Berg MD [address] [place] [address] Specialist Cardiology 01/24/23 Devika Bashir NP [address] [place] [address] Cardiology 01/29/23 documented as of this encounter
--- OUTSIDE RECORDS SUMMARY | 2025-03-17 08:50 | XMS_ITS | Encounter Summary ---
Author Organization [facility] Address [address] [place] [address] Care Team Providers Care Assistant Womens Volleyball Coach Name Role Phone Anthony Whittaker MD Primary Care Provider Royal Pierre MD Primary Care Provider Chel Montilla MD Unavailable Nubia Preston PA-C Unavailable Unavailab Joseph Thompson MD Unavailable [phone] Devika Bashir NP Unavailable [facility], Pcp Primary Care Provider Unavailabl e Reason for Visit * Reason Onset Date Comments Laryngitis 02/12/2014 Encounter Details Date Type Department Care Team Description 02/12/2014 Telephone Adult Medicine [address] [phone] Anthony Whittaker MD [address] [place] [address] Laryngitis Social History Tobacco Use Types Packs/Day [...] / Plan: [place] / Product Type: MEDICARE [id number] documented in this encounter Plan of Treatment Not on file documented as of this encounter Visit Diagnoses Not on filedocumented in this encounter Care Teams Assistant Womens Volleyball Coach Relationship Specialty Start Date End Date Anthony Whittaker MD [address] [place] [address] PCP - General 10/09/1995 07/20/20 Royal Pierre MD [address] [place] [address] PCP - General Internal Medicine 07/21/20 12/27/23 [facility] Pcp [address] [place] [address] PCP - General Internal Medicine 12/28/23 Chel Montilla MD [address] [place] [address] Specialist Cardiology 02/25/21 Nubia Preston PA-C [address] [place] [address] Cardiology 05/24/21 01/28/23 Joseph Berg MD [address] [place] [address] Specialist Cardiology 01/24/23 Devika Bashir NP [address] [place], [place] [phone] Cardiology 01/29/23 documented as of this encounter
--- OUTSIDE RECORDS SUMMARY | 2025-03-17 08:50 | XMS_ITS | Encounter Summary ---
Author Organization [facility] Address [address] [place] [address] Care Team Providers Care Doorperson Or Luggage Porter Name Role Phone Royal Pierre MD Primary Care Provider [phone] Chel Montilla MD Unavailable Nubia Preston PA-C Unavailable Unavailab Joseph Thompson MD Unavailable [phone] Devika Bashir NP Unavailable Unavailable [facility], Pcp Primary Care Provider Unavailabl e Encounter Details Date Type Department Care Team Description 07/05/2021 Master Hearth Technician Report Medical Records [address] [place] [address] [facility] Social History Tobacco Use Types Packs/Day Years [...] on filedocumented in this encounter Care Teams Doorperson Or Luggage Porter Relationship Specialty Start Date End Date Royal Pierre MD [address] [place] [address] [phone] PCP - General Internal Medicine 07/21/20 12/27/23 [facility], Pcp [address] [place] [address] PCP - General Internal Medicine 12/28/23 Chel Montilla MD [address] [place] [address] [phone] Specialist Cardiology 02/25/21 Nubia Preston PA-C [address] [place] [address] Cardiology 05/24/21 01/28/23 Joseph Berg MD [address] [place] [address] Specialist Cardiology 01/24/23 Devika Bashir NP [address] [place] [address] Cardiology 01/29/23 documented as of this encounter
--- OUTSIDE RECORDS SUMMARY | 2025-03-17 08:50 | XMS_ITS | Encounter Summary ---
Author Organization [facility] Address [address] [place] [address] Care Team Providers Care Community Service Worker Name Role Phone Anthony Whittaker MD Primary Care Provider [phone] Royal Pierre MD Primary Care Provider [phone] Chel Montilla MD Unavailable Nubia Preston PA-C Unavailable Unavailab Joseph Thompson MD Unavailable [phone] Devika Bashir NP Unavailable Unavailable [facility], Pcp Primary Care Provider Unavailabl e Encounter Details Date Type Department Care Team Description 11/05/2018 Arts Therapist Report Medical Records [address] [place] [address] Chel Montilla MD [address] [place] [address] [phone] Social History Tobacco Use Types Packs/Day Years [...] filedocumented in this encounter Care Teams Community Service Worker Relationship Specialty Start Date End Date Anthony Whittaker MD [address] [place] [address] [phone] PCP - General 10/09/1995 07/20/20 Royal Pierre MD [address] [place] [address] PCP - General Internal Medicine 07/21/20 12/27/23 [facility], Pcp [address] [place] [address] PCP - General Internal Medicine 12/28/23 Chel Montilla MD [address] [place] [address] Specialist Cardiology 02/25/21 Nubia Preston PA-C [address] [place] [address] Cardiology 05/24/21 01/28/23 Joseph Berg MD [address] [place] [address] Specialist Cardiology 01/24/23 Devika Bashir NP [address] [place], [place] [phone] Cardiology 01/29/23 documented as of this encounter
--- OUTSIDE RECORDS SUMMARY | 2025-03-17 08:50 | XMS_ITS | Encounter Summary ---
Author Organization [facility] Address [address] [place] [address] Care Team Providers Care Body Presser Name Role Phone Royal Pierre MD Primary Care Provider [phone] Chel Montilla MD Unavailable Nubia Preston PA-C Unavailable Unavailab Joseph Thompson MD Unavailable [phone] Devika Bashir NP Unavailable Unavailable [facility], Pcp Primary Care Provider Unavailabl e Encounter Details Date Type Department Care Team Description 05/26/2021 Neurosurgical Nurse Practitioner Report Medical Records [address] [place] [address] Ken Allen MD Social History Tobacco Use [...] on filedocumented in this encounter Care Teams Body Presser Relationship Specialty Start Date End Date Royal Pierre MD [address] [place] [address] [phone] PCP - General Internal Medicine 07/21/20 12/27/23 [facility], Pcp [address] [place] [address] PCP - General Internal Medicine 12/28/23 Chel Montilla MD [address] [place] [address] [phone] Specialist Cardiology 02/25/21 Nubia Preston PA-C [address] [place] [address] 240[address] Cardiology 05/24/21 01/28/23 Joseph Berg MD [address] [place], [place] [phone] Specialist Cardiology 01/24/23 Devika Basihr NP [address] [place] [address] Cardiology 01/29/23 documented as of this encounter
--- OUTSIDE RECORDS SUMMARY | 2025-03-17 08:50 | XMS_ITS | Encounter Summary ---
Author Organization [facility] Address [address] [place] [address] Care Team Providers Care Car Designer Name Role Phone Royal Pierre MD Primary Care Provider [phone] Chel Montilla MD Unavailable Nubia Preston PA-C Unavailable Unavailab Joseph Thompson MD Unavailable [phone] Devika Bashir NP Unavailable Unavailable [facility], Pcp Primary Care Provider Unavailabl e Reason for Visit * Reason Comments E-prescribe Rx Request Encounter Details Date Type Department Care Team Description 01/25/2021 Refill Adult Medicine [address] [phone] Anthony Whittaker MD [address] [place] [address] [phone] E-prescribe Rx Request Social History Tobacco Use [...] / Plan: [place]ARE-[place] / Product Type: MEDICARE [id number] documented in this encounter Plan of Treatment Not on file documented as of this encounter Visit Diagnoses Not on filedocumented in this encounter Care Teams Car Designer Relationship Specialty Start Date End Date Royal Pierre MD [address] [place] [address] PCP - General Internal Medicine 07/21/20 12/27/[address] [address] PCP - General Internal Medicine 12/28/23 Chel Montilla MD [address] [place] [address] Specialist Cardiology 02/25/21 Nubia Preston PA-C [address] [place] [address] Cardiology 05/24/21 01/28/23 Joseph Berg MD [address] [place] [address] Specialist Cardiology 01/24/23 Devika Bashir NP [address] [place] [address] Cardiology 01/29/23 documented as of this encounter
--- OUTSIDE RECORDS SUMMARY | 2025-03-17 08:50 | XMS_ITS | Encounter Summary ---
Author Organization [facility] Address [address] [place] [address] Care Team Providers Care Solar Project Coordination Specialist Name Role Phone Royal Pierre MD Primary Care Provider [phone] Chel Montilla MD Unavailable Joseph Berg MD Unavailable [phone] Devika Bashir NP Unavailable Unavailable [facility], Pcp Primary Care Provider Unavailabl e Encounter Details Date Type Department Care Team Description 05/18/2023 SCAN Medical Records [address] [place] [address] Abstract, Provider Social History Tobacco Use Types [...] on filedocumented in this encounter Care Teams Solar Project Coordination Specialist Relationship Specialty Start Date End Date Royal Pierre MD [address] [place] [address] PCP - General Internal Medicine 07/21/20 12/27/23 [facility], Pcp [address] [place] [address] PCP - General Internal Medicine 12/28/23 Chel Montilla MD [address] [place] [address] Specialist Cardiology 02/25/21 Joseph Berg MD [address] [place] [address] Specialist Cardiology 01/24/23 Devika Bashir NP [address] [place] [address] Cardiology 01/29/23 documented as of this encounter
--- OUTSIDE RECORDS SUMMARY | 2025-03-17 08:50 | XMS_ITS | Encounter Summary ---
Author Organization [facility] Address [address] [place] [address] Care Team Providers Care Simplex Printer Installer Name Role Phone Anthony Whittaker MD Primary Care Provider [phone] Royal Pierre MD Primary Care Provider [phone] Chel Montilla MD Unavailable Nubia Preston PA-C Unavailable Unavailab Joseph Thompson MD Unavailable [phone] Devika Bashir NP Unavailable Unavailable [facility], Pcp Primary Care Provider Unavailabl e Encounter Details Date Type Department Care Team Description 06/04/2015 Business Doc Medical Records [address] [place] [address] Abstract, Provider Social History Tobacco Use Types [...] on filedocumented in this encounter Care Teams Simplex Printer Installer Relationship Specialty Start Date End Date Anthony Whittaker MD [address] [place] [address] [phone] PCP - General 10/09/1995 07/20/20 Royal Pierre MD [address] [place] [address] PCP - General Internal Medicine 07/21/20 12/27/23 [facility], Pcp [address] [place] [address] PCP - General Internal Medicine 12/28/23 Chel Montilla MD [address] [place] [address] Specialist Cardiology 02/25/21 Nubia Preston PA-C [address] [place] [address] Cardiology 05/24/21 01/28/23 Joseph Berg MD [address] [place] [address] Specialist Cardiology 01/24/23 Devika Bashir NP [address] [place] [address] Cardiology 01/29/23 documented as of this encounter
--- OUTSIDE RECORDS SUMMARY | 2025-03-17 08:50 | XMS_ITS | Encounter Summary ---
Author Organization [facility] Address [address] [place] [address] Care Team Providers Care Dry Kiln Operator Name Role Phone Anthony Whittaker MD Primary Care Provider Royal Pierre MD Primary Care Provider [phone] Chel Montilla MD Unavailable Nubia Preston PA-C Unavailable Unavailab Joseph Thompson MD Unavailable [phone] Devika Bashir NP Unavailable [facility], Pcp Primary Care Provider Unavailabl e Encounter Details Date Type Department Care Team Description 09/26/2018 Human Relations Professor Report Medical Records [address] [place] [address] Go Ramos MD Social History Tobacco Use [...] filedocumented in this encounter Care Teams Dry Kiln Operator Relationship Specialty Start Date End Date Anthony Whittaker MD [address] [place] [address] PCP - General 10/09/1995 07/20/20 Royal Pirere MD [address] [place] [address] [phone] PCP - General Internal Medicine 07/21/20 12/27/23 [facility], Pcp [address] [place] [address] PCP - General Internal Medicine 12/28/23 Chel Montilla MD [address] [place] [address] Specialist Cardiology 02/25/21 Nubia Preston PA-C [address] [place] [address] Cardiology 05/24/21 01/28/23 Joseph Berg MD [address] [place] [address] Specialist Cardiology 01/24/23 Devika Bashir NP [address] [place] [address] Cardiology 01/29/23 documented as of this encounter
--- OUTSIDE RECORDS SUMMARY | 2025-03-17 08:50 | XMS_ITS | Encounter Summary ---
Author Organization [facility] Address [address] [place] [address] Care Team Providers Care Log Roper Name Role Phone Anthony Whittaker MD Primary Care Provider [phone] Royal Pierre MD Primary Care Provider [phone] Chel Montilla MD Unavailable Nubia Preston PA-C Unavailable Unavailab Joseph Thompson MD Unavailable [phone] Devika Bashir NP Unavailable Unavailable [facility], Pcp Primary Care Provider Unavailabl e Encounter Details Date Type Department Care Team Description 07/17/2018 Knife Changer Report Medical Records [address] [place] [address] [facility] Social History Tobacco Use Types [...] on filedocumented in this encounter Care Teams Log Roper Relationship Specialty Start Date End Date Anthony Whittaker MD [address] [place] [address] PCP - General 10/09/1995 07/20/20 Royal Pierre MD [address] [place] [address]20 PCP - General Internal Medicine 07/21/20 12/27/23 [facility], Pcp [address] [place] [address] PCP - General Internal Medicine 12/28/23 Chel Montilla MD [address] [place] [address] Specialist Cardiology 02/25/21 Nubia Preston PA-C [address] [place] [address] Cardiology 05/24/21 01/28/23 Joseph Berg MD [address] [place] [address] Specialist Cardiology 01/24/23 Devika Bashir NP [address] [place] [address] Cardiology 01/29/23 documented as of this encounter
--- OUTSIDE RECORDS SUMMARY | 2025-03-17 08:50 | XMS_ITS | Encounter Summary ---
Author Organization [facility] Address [address] [place] [address] Care Team Providers Care Professor Of Exercise Science Name Role Phone Royal Pierre MD Primary Care Provider [phone] Chel Montilla MD Unavailable Nubia Preston PA-C Unavailable Unavailab Joseph Thompson MD Unavailable [phone] Devika Bashir NP Unavailable Unavailable [facility], Pcp Primary Care Provider Unavailabl e Encounter Details Date Type Department Care Team Description 08/05/2021 Forestry Crew Chief Report Medical Records [address] [place] [address] 01583 Ken Allen MD Social History Tobacco Use [...] on filedocumented in this encounter Care Teams Professor Of Exercise Science Relationship Specialty Start Date End Date Royal Pierre MD [address] [place] [address] 55773 PCP - General Internal Medicine 07/21/20 12/27/23 [facility], Pcp [address] [place] [address] 17089 PCP - General Internal Medicine 12/28/23 Chel Montilla MD [address] [place] [address] [phone] Specialist Cardiology 02/25/21 Nubia Preston PA-C [address] [place] [address] 47639 Cardiology 05/24/21 01/28/23 Joseph Berg MD [address] [place], [place] [phone] Specialist Cardiology 01/24/23 Devika Bashir NP [address] [place] [address] 55020 Cardiology 01/29/23 documented as of this encounter
--- OUTSIDE RECORDS SUMMARY | 2025-03-17 08:50 | XMS_ITS | Encounter Summary ---
Author Organization [facility] Address [address] [place] [address] Care Team Providers Care Passenger Service Supervisor Name Role Phone Anthony Whittaker MD Primary Care Provider [phone] Royal Pierre MD Primary Care Provider [phone] Chel Montilla MD Unavailable Nubia Preston PA-C Unavailable Unavailab Joseph Thompson MD Unavailable [phone] Devika Bashir NP Unavailable Unavailable [facility], Pcp Primary Care Provider Unavailabl e Encounter Details Date Type Department Care Team Description 03/12/2014 Release of Information Medical Records [address] [place] [address] [phone] Abstract, Provider Social History Tobacco Use Types [...] on filedocumented in this encounter Care Teams Passenger Service Supervisor Relationship Specialty Start Date End Date Anthony Whittaker MD [address] [place] [address] [phone] PCP - General 10/09/1995 07/20/20 Royal Pierre MD [address] [place] [address] 21450 PCP - General Internal Medicine 07/21/20 12/27/23 [facility], Pcp [address] [place] [address] PCP - General Internal Medicine 12/28/23 Chel Montilla MD [address] [place] [address] Specialist Cardiology 02/25/21 Nubia Preston PA-C [address] [place] [address] Cardiology 05/24/21 01/28/23 Joseph Berg MD [address] [place] [address] Specialist Cardiology 01/24/23 Devika Bashir NP [address] [place] [address] Cardiology 01/29/23 documented as of this encounter
--- OUTSIDE RECORDS SUMMARY | 2025-03-17 08:50 | XMS_ITS | Encounter Summary ---
Author Organization [facility] Address [address] [place] [address] Care Team Providers Care Crane Assembler Name Role Phone Anthony Whittaker MD Primary Care Provider [phone] Royal Pierre MD Primary Care Provider [phone] Chel Montilla MD Unavailable Nubia Preston PA-C Unavailable Unavailab Joseph Thompson MD Unavailable [phone] Devika Bashir NP Unavailable Unavailable [facility], Pcp Primary Care Provider Unavailabl e Encounter Details Date Type Department Care Team Description 03/17/2014 Sugar Cane Grower Report Medical Records [address] [place] [address] 05138 Shaunna Fry MD Social History Tobacco Use [...] on filedocumented in this encounter Care Teams Crane Assembler Relationship Specialty Start Date End Date Anthony Whittaker MD [address] [place] [address] 01020 PCP - General 10/09/1995 07/20/20 Royal Pierre MD [address] [place] [address] [phone] PCP - General Internal Medicine 07/21/20 12/27/23 [facility], Pcp [address] [place] [address] PCP - General Internal Medicine 12/28/23 Chel Montilla MD [address] [place] [address] Specialist Cardiology 02/25/21 Nubia Preston PA-C [address] [place] [address]15 Cardiology 05/24/21 01/28/23 Joseph Berg MD [address] [place] [address] Specialist Cardiology 01/24/23 Devika Bashir NP [address] [place] [address] Cardiology 01/29/23 documented as of this encounter
--- OUTSIDE RECORDS SUMMARY | 2025-03-17 08:50 | XMS_ITS | Encounter Summary ---
Author Organization [facility] Address [address] [place] [address] Care Team Providers Care Reverberatory Skimmer Name Role Phone Anthony Whittaker MD Primary Care Provider [phone] Royal Pierre MD Primary Care Provider [phone] Chel Montilla MD Unavailable Nubia Preston PA-C Unavailable Unavailab Joseph Thompson MD Unavailable [phone] Devika Bashir NP Unavailable Unavailable [facility], Pcp Primary Care Provider Unavailabl e Encounter Details Date Type Department Care Team Description 10/02/2014 Bag Machine Operator Helper Report Medical Records [address] [place] [address] 6[address] Shaunna Fry MD Social History Tobacco Use [...] on filedocumented in this encounter Care Teams Reverberatory Skimmer Relationship Specialty Start Date End Date Anthony Whittaker MD [address] [place] [address] 01020 PCP - General 10/09/1995 07/20/20 Royal Pierre MD [address] [place] [address] [phone] PCP - General Internal Medicine 07/21/20 12/27/23 [facility], Pcp [address] [place] [address] PCP - General Internal Medicine 12/28/23 Chel Montilla MD [address] [place] [address] Specialist Cardiology 02/25/21 Nubia Preston PA-C [address] [place] [address] 50689 Cardiology 05/24/21 01/28/23 Joseph Berg MD [address] [place] [address] Specialist Cardiology 01/24/23 Devika Bashir NP [address] [place] [address] Cardiology 01/29/23 documented as of this encounter
--- OUTSIDE RECORDS SUMMARY | 2025-03-17 08:51 | XMS_ITS | Encounter Summary ---
Author Organization [facility] Address [address] [place] [address] Care Team Providers Care Cement Car Dumper Name Role Phone Anthony Whittaker MD Primary Care Provider [phone] Royal Pierre MD Primary Care Provider [phone] Chel Montilla MD Unavailable Nubia Preston PA-C Unavailable Unavailab Joseph Thompson MD Unavailable [phone] Devika Bashir NP Unavailable Unavailable [facility], Pcp Primary Care Provider Unavailabl e Encounter Details Date Type Department Care Team Description 07/14/2006 Hospital Medical Records [address] [place] [address] Susy Contreras MD Social History Tobacco Use [...] on filedocumented in this encounter Care Teams Cement Car Dumper Relationship Specialty Start Date End Date Anthony Wihttaker MD [address] [place] [address]20 PCP - General 10/09/1995 07/20/20 Royal Pierre MD [address] [place] [address] 0[address]20 PCP - General Internal Medicine 07/21/20 12/27/23 [facility], Pcp [address] [place] [address] PCP - General Internal Medicine 12/28/23 Chel Montilla MD [address] [place] [address] Specialist Cardiology 02/25/21 Nubia Preston PA-C [address] [place] [address] Cardiology 05/24/21 01/28/23 Joseph Berg MD [address] [place] [address] Specialist Cardiology 01/24/23 Devika Bashir NP [address] [place] [address] Cardiology 01/29/23 documented as of this encounter
--- OUTSIDE RECORDS SUMMARY | 2025-03-17 08:51 | XMS_ITS | Encounter Summary ---
Author Organization [facility] Address [address] [place] [address] Care Team Providers Care Double Needle Stitcher Name Role Phone Anthony Whittaker MD Primary Care Provider Royal Pierre MD Primary Care Provider Chel Montilla MD Unavailable Nubia Preston PA-C Unavailable Unavailab Joseph Thompson MD Unavailable [phone] Devika Bashir NP Unavailable Unavailable [facility], Pcp Primary Care Provider Unavailabl e Reason for Visit * Reason Comments E-prescribe Rx Request Encounter Details Date Type Department Care Team Description 11/11/2017 Refill Adult Medicine [address] [phone] Anthony Whittaker MD [address] [place] [address] [phone] E-prescribe Rx Request Social History Tobacco Use [...] NO Patients current insurance carrier is: Payor: -MD/PPO POS / Plan: PPO $0 [place] [id number] / Product Type: PPO [id number] documented in this encounter Plan of Treatment Not on file documented as of this encounter Visit Diagnoses Not on filedocumented in this encounter Care Teams Double Needle Stitcher Relationship Specialty Start Date End Date Anthony Whittaker MD [address] [place] [address] 24397 PCP - General 10/09/1995 07/20/20 Royal Pierre MD [address] [place] [address] PCP - General Internal Medicine 07/21/20 12/27/23 [facility], Pcp [address] [place] [address] PCP - General Internal Medicine 12/28/23 Chel Montilla MD [address] [place] [address] Specialist Cardiology 02/25/21 Nubia Preston PA-C [address] [place] [address] Cardiology 05/24/21 01/28/23 Joseph Berg MD [address] [place] [address] Specialist Cardiology 01/24/23 Devika Bashir NP [address] [place], [place] [address] Cardiology 01/29/23 documented as of this encounter
--- OUTSIDE RECORDS SUMMARY | 2025-03-17 08:51 | XMS_ITS | Encounter Summary ---
Author Organization [facility] Address [address] [place] [address] Care Team Providers Care Manufacturing Chief Engineer Name Role Phone Anthony Whittaker MD Primary Care Provider [phone] Royal Pierre MD Primary Care Provider [phone] Chel Montilla MD Unavailable Nubia Preston PA-C Unavailable Unavailab Joseph Thompson MD Unavailable [phone] Devika Bashir NP Unavailable Unavailable [facility], Pcp Primary Care Provider Unavailabl e Encounter Details Date Type Department Care Team Description 12/06/2011 Accounting Recruiter Report Medical Records [address] [place] [address] 6[address] Lee Gil MD Social History Tobacco Use [...] on filedocumented in this encounter Care Teams Manufacturing Chief Engineer Relationship Specialty Start Date End Date Anthony Whittaker MD [address] [place] [address] [phone] PCP - General 10/09/1995 07/20/20 Royal Pierre MD [address] [place] [address] [phone] PCP - General Internal Medicine 07/21/20 12/27/23 [facility], Pcp [address] [place] [address] PCP - General Internal Medicine 12/28/23 Chel Montilla MD [address] [place] [address] Specialist Cardiology 02/25/21 Nubia Preston PA-C [address] [place] [address] 75324 Cardiology 05/24/21 01/28/23 Joseph Berg MD [address] [place] [address] Specialist Cardiology 01/24/23 Devika Bashir NP [address] [place] [address] Cardiology 01/29/23 documented as of this encounter
--- OUTSIDE RECORDS SUMMARY | 2025-03-17 08:51 | XMS_ITS | Encounter Summary ---
Author Organization [facility] Address [address] [place] [address] Care Team Providers Care Program Planner Name Role Phone Royal Pierre MD Primary Care Provider [phone] Chel Montilla MD Unavailable Joseph Berg MD Unavailable [phone] MAINTENANCE WORKER Unavailable Unavailable [facility], Pcp Primary Care Provider Unavailabl e Encounter Details Date Type Department Care Team Description 06/25/2023 Hospital Medical Records [address] [place] [address] 89808 Perez Mei MD Social History Tobacco Use [...] on filedocumented in this encounter Care Teams Program Planner Relationship Specialty Start Date End Date Royal Pierre MD [address] [place] [address] 32594 PCP - General Internal Medicine 07/21/20 12/27/23 [facility], Pcp [address] [place] [address] 99268 PCP - General Internal Medicine 12/28/23 Chel Montilla MD [address] [place] [address] [phone] Specialist Cardiology 02/25/21 Joseph Berg MD [address] [place] [address] 07520 Specialist Cardiology 01/24/23 Devika Bashir NP [address] [place] [address] Cardiology 01/29/23 documented as of this encounter
--- OUTSIDE RECORDS SUMMARY | 2025-03-17 08:51 | XMS_ITS | Encounter Summary ---
Author Organization [facility] Address [address] [place] [address] Care Team Providers Care Shredder Picker Name Role Phone Royal Pierre MD Primary Care Provider [phone] Chel Montilla MD Unavailable Joseph Berg MD Unavailable [phone] Devika Bashir NP Unavailable [facility], Pcp Primary Care Provider Unavailabl e Reason for Visit * Reason Onset Date Comments Medical Records 06/28/2023 Encounter Details Date Type Department Care Team Description 06/28/2023 Telephone Cardio PVC POC [phone] [facility] [address] [place] [address] Chel Montilla MD [address] [place] [address] [phone] Medical Records Social History Tobacco Use Types [...] Medical Records Request Deacon was discharged from [facility] on 06/25/23. Can you please get records prior to his 2023 hospital follow up appointment? Thanks. documented in this encounter Plan of Treatment Not on file documented as of this encounter Visit Diagnoses Not on filedocumented in this encounter Care Teams Shredder Picker Relationship Specialty Start Date End Date Royal Pierre MD [address] [place] [address] PCP - General Internal Medicine 07/21/20 12/27/23 [facility], Pcp [address] [place], [place] [phone] PCP - General Internal Medicine 12/28/23 Chel Montilla MD [address] [place] [address] Specialist Cardiology 02/25/21 Joseph Berg MD [address] [place] [address] Specialist Cardiology 01/24/23 Devika Bashir NP [address] [place], [place] [phone] Cardiology 01/29/23 documented as of this encounter
--- OUTSIDE RECORDS SUMMARY | 2025-03-17 08:51 | XMS_ITS ---
Author Name [facility] Organization Unknown Care Team Organization Name Specialty Phone Email Start Date End Da te [facility] 05/23/2022 03/03/2024
--- OUTSIDE RECORDS SUMMARY | 2025-03-17 08:51 | XMS_ITS | Encounter Summary ---
Author Organization [facility] Address [address] [place] [address] Care Team Providers Care Nurseryman Assistant Name Role Phone Royal Pierre MD Primary Care Provider [phone] Chel Montilla MD Unavailable Joseph Berg MD Unavailable [phone] Devika Bashir NP Unavailable Unavailable [facility], Pcp Primary Care Provider Unavailabl e Encounter Details Date Type Department Care Team Description 05/18/2023 Hospital Medical Records [address] [place] [address] 88806 [facility] Social History Tobacco Use [...] on filedocumented in this encounter Care Teams Nurseryman Assistant Relationship Specialty Start Date End Date Royal Pierre MD [address] [place] [address] [phone] PCP - General Internal Medicine 07/21/20 12/27/23 [facility], Pcp [address] [place] [address] 30012 PCP - General Internal Medicine 12/28/23 Chel Montilla MD [address] [place] [address] 50787 Specialist Cardiology 02/25/21 Joseph Berg MD [address] [place] [address] 82788 Specialist Cardiology 01/24/23 Devika Bashir NP [address] [place] [address] 94219 Cardiology 01/29/23 documented as of this encounter
--- OUTSIDE RECORDS SUMMARY | 2025-03-17 08:51 | XMS_ITS | Encounter Summary ---
Author Organization [facility] Address [address] [place] [address] Care Team Providers Care Powder Mixer Name Role Phone Anthony Whittaker MD Primary Care Provider [phone] Royal Pierre MD Primary Care Provider [phone] Chel Montilla MD Unavailable Nubia Preston PA-C Unavailable Unavailab Joseph Thompson MD Unavailable [phone] Devika Bashir NP Unavailable Unavailable [facility], Pcp Primary Care Provider Unavailabl e Encounter Details Date Type Department Care Team Description 01/30/2018 Hospital Medical Records [address] [place] [address] 63364 Jeanine Pedersen MD Social History Tobacco Use [...] on filedocumented in this encounter Care Teams Powder Mixer Relationship Specialty Start Date End Date Anthony Whittaker MD [address] [place] [address] [phone] PCP - General 10/09/1995 07/20/20 Royal Pierre MD [address] [place] [address] 01020 PCP - General Internal Medicine 07/21/20 12/27/23 [facility], Pcp [address] [place] [address] PCP - General Internal Medicine 12/28/23 Chel Montilla MD [address] [place] [address] Specialist Cardiology 02/25/21 Nubia Preston PA-C [address] [place] [address] Cardiology 05/24/21 01/28/23 Joseph Berg MD [address] [place] [address] Specialist Cardiology 01/24/23 Devika Bashir NP [address] [place] [address] Cardiology 01/29/23 documented as of this encounter
--- OUTSIDE RECORDS SUMMARY | 2025-03-17 08:51 | XMS_ITS | Encounter Summary ---
Author Organization [facility] Address [address] [place] [address] Care Team Providers Care Coal Tram Driver Name Role Phone Anthony Whittaker MD Primary Care Provider [phone] Royal Pierre MD Primary Care Provider [phone] Chel Montilla MD Unavailable Nubia Preston PA-C Unavailable Unavailab Joseph Thompson MD Unavailable [phone] Devika Bashir NP Unavailable Unavailable [facility], Pcp Primary Care Provider Unavailabl e Encounter Details Date Type Department Care Team Description 01/24/2018 Pocket Flap Creasing Machine Operator Report Medical Records [address] [place] [address] 77897 Abstract, Provider Social History Tobacco Use Types [...] on filedocumented in this encounter Care Teams Coal Tram Driver Relationship Specialty Start Date End Date Anthony Whittaker MD [address] [place] [address] 01020 PCP - General 10/09/1995 07/20/20 Royal Pierre MD [address] [place] [address] [phone] PCP - General Internal Medicine 07/21/20 12/27/23 [facility], Pcp [address] [place] [address] 70574 PCP - General Internal Medicine 12/28/23 Chel Montilla MD [address] [place] [address] Specialist Cardiology 02/25/21 Nubia Preston PA-C [address] [place] [address] 84820 Cardiology 05/24/21 01/28/23 Joseph Berg MD [address] [place] [address] Specialist Cardiology 01/24/23 Devika Bashir NP [address] [place] [address] Cardiology 01/29/23 documented as of this encounter
--- OUTSIDE RECORDS SUMMARY | 2025-03-17 08:51 | XMS_ITS | Encounter Summary ---
Author Organization [facility] Address [address] [place] [address] Care Team Providers Care Vascular Surgeon Name Role Phone Anthony Whittaker MD Primary Care Provider [phone] Royal Pierre MD Primary Care Provider [phone] Chel Montilla MD Unavailable Nubia Preston PA-C Unavailable Unavailab Joseph Thompson MD Unavailable [phone] Devika Bashir NP Unavailable Unavailable [facility], Pcp Primary Care Provider Unavailabl e Encounter Details Date Type Department Care Team Description 06/04/2013 Business Doc Medical Records [address] [place] [address] [phone] Abstract, Provider Social History Tobacco Use Types [...] on filedocumented in this encounter Care Teams Vascular Surgeon Relationship Specialty Start Date End Date Anthony Whittaker MD [address] [place] [address] [phone] PCP - General 10/09/1995 07/20/20 Royal Pierre MD [address] [place] [address] 78943 PCP - General Internal Medicine 07/21/20 12/27/23 [facility], Pcp [address] [place] [address] PCP - General Internal Medicine 12/28/23 Chel Montilla MD [address] [place] [address] Specialist Cardiology 02/25/21 Nubia Preston PA-C [address] [place] [address] Cardiology 05/24/21 01/28/23 Joseph Berg MD [address] [place] [address] Specialist Cardiology 01/24/23 Devika Bashir NP [address] [place] [address] Cardiology 01/29/23 documented as of this encounter
--- OUTSIDE RECORDS SUMMARY | 2025-03-17 08:51 | XMS_ITS | Encounter Summary ---
Author Organization [facility] Address [address] [place] [address] Care Team Providers Care Stitcher Around Name Role Phone Royal Pierre MD Primary Care Provider [phone] Chel Montilla MD Unavailable Joseph Berg MD Unavailable [phone] Devika Bashir PROSPECTING DRILLER Unavailable Unavailable [facility], Pcp Primary Care Provider Unavailabl e Encounter Details Date Type Department Care Team Description 05/03/2023 Hogshead Filler Report Medical Records [address] [place] [address]11 Ken Allen MD Social History Tobacco Use [...] on filedocumented in this encounter Care Teams Stitcher Around Relationship Specialty Start Date End Date Royal Pierre MD [address] [place] [address]20 PCP - General Internal Medicine 07/21/20 12/27/23 [facility], Pcp [address] [place] [address] 27243 PCP - General Internal Medicine 12/28/23 Chel Montilla MD [address] [place] [address] 16172 Specialist Cardiology 02/25/21 Joseph Berg MD [address] [place] [address] 42155 Specialist Cardiology 01/24/23 Devika Bashir NP [address] [place] [address] Cardiology 01/29/23 documented as of this encounter
--- OUTSIDE RECORDS SUMMARY | 2025-03-17 08:51 | XMS_ITS | Encounter Summary ---
Author Organization [facility] Address [address] [place] [address] Care Team Providers Care Sugar Sampler Name Role Phone Royal Pierre MD Primary Care Provider [phone] Chel Montilla MD Unavailable Nubia Preston PA-C Unavailable Unavailab Joseph Thompson MD Unavailable [phone] Devika Bashir NP Unavailable Unavailable [facility], Pcp Primary Care Provider Unavailabl e Encounter Details Date Type Department Care Team Description 03/02/2021 SCAN Medical Records [address] [place] [address] 14792 Abstract, Provider Social History Tobacco Use Types [...] on filedocumented in this encounter Care Teams Sugar Sampler Relationship Specialty Start Date End Date Royal Pierre MD [address] [place] [address] 0[address]20 PCP - General Internal Medicine 07/21/20 12/27/23 [facility], Pcp [address] [place] [address] 56480 PCP - General Internal Medicine 12/28/23 Chel Montilla MD [address] [place] [address] Specialist Cardiology 02/25/21 Nubia Preston PA-C [address] [place] [address] Cardiology 05/24/21 01/28/23 Joseph Begr MD [address] [place] [address] Specialist Cardiology 01/24/23 Devika Bashir NP [address] [place] [address] Cardiology 01/29/23 documented as of this encounter
--- OUTSIDE RECORDS SUMMARY | 2025-03-17 08:51 | XMS_ITS | Encounter Summary ---
Author Organization [facility] Address [address] [place] [address] Care Team Providers Care Numerical Control Machine Operator Name Role Phone Anthony Whittaker MD Primary Care Provider [phone] Royal Pierre MD Primary Care Provider [phone] Chel Montilla MD Unavailable Nubia Preston PA-C Unavailable Unavailab Joseph Thompson MD Unavailable [phone] Devika Bashir NP Unavailable Unavailable Counts Include [facility], Pcp Primary Care Provider Unavailabl e Encounter Details Date Type Department Care Team Description 12/20/2017 Mark Up Designer Report Medical Records [address] [place] [address]30 Go Ramos MD Social History Tobacco Use [...] on filedocumented in this encounter Care Teams Numerical Control Machine Operator Relationship Specialty Start Date End Date Anthony Whittaker MD [address] [place] [address] [phone] PCP - General 10/09/1995 07/20/20 Royal Pierre MD [address] [place] [address] [phone] PCP - General Internal Medicine 07/21/20 12/27/23 [facility], Pcp [address] [place] [address] 82063 PCP - General Internal Medicine 12/28/23 Chel Montilla MD [address] [place] [address] Specialist Cardiology 02/25/21 Nubia Preston PA-C [address] [place] [address] 54811 Cardiology 05/24/21 01/28/23 Joseph Berg MD [address] [place] [address] Specialist Cardiology 01/24/23 Devika Bashir NP [address] [place] [address] Cardiology 01/29/23 documented as of this encounter
--- OUTSIDE RECORDS SUMMARY | 2025-03-17 08:51 | XMS_ITS | Encounter Summary ---
Author Organization [facility] Address [address] [place] [address] Care Team Providers Care Rat Culturist Name Role Phone Royal Pierre MD Primary Care Provider [phone] Chel Montilla MD Unavailable Nubia Preston PA-C Unavailable Unavailab Joseph Thompson MD Unavailable [phone] Devika Bashir NP Unavailable Unavailable [facility], Pcp Primary Care Provider Unavailabl e Encounter Details Date Type Department Care Team Description 07/26/2020 Loan Review Officer Report Medical Records [address] [place] [address] 22978 Go Ramos MD Social History Tobacco Use [...] on filedocumented in this encounter Care Teams Rat Culturist Relationship Specialty Start Date End Date Royal Pierre MD [address] [place] [address]1020 PCP - General Internal Medicine 07/21/20 12/27/23 [facility], Pcp [address] [place] [address] 19535 PCP - General Internal Medicine 12/28/23 Chel Montilla MD [address] [place] [address] Specialist Cardiology 02/25/21 Nubia Preston PA-C [address] [place] [address] Cardiology 05/24/21 01/28/23 Joseph Berg MD [address] [place] [address] Specialist Cardiology 01/24/23 Devika Bashir NP [address] [place] [address] Cardiology 01/29/23 documented as of this encounter
--- OUTSIDE RECORDS SUMMARY | 2025-03-17 08:51 | XMS_ITS | Encounter Summary ---
Author Organization [facility] Address [address] [place] [address] Care Team Providers Care Senior Outside Sales Representative Name Role Phone Anthony Whittaker MD Primary Care Provider [phone] Royal Pierre MD Primary Care Provider [phone] Chel Montilla MD Unavailable Nubia Preston PA-C Unavailable Unavailab Joseph Thompson MD Unavailable [phone] Devika Bashir NP Unavailable Unavailable [facility], Pcp Primary Care Provider Unavailabl e Encounter Details Date Type Department Care Team Description 11/12/2011 Hospital Medical Records [address] [place] [address] Mo Valentin MD [address] [place] [address] [phone] Social History Tobacco Use Types Packs/Day Years [...] filedocumented in this encounter Care Teams Senior Outside Sales Representative Relationship Specialty Start Date End Date Anthony Whittaker MD [address] [place] [address] [phone] PCP - General 10/09/1995 07/20/20 Royal Pierre MD [address] [place] [address] 95575 PCP - General Internal Medicine 07/21/20 12/27/23 [facility], Pcp [address] [place] [address] PCP - General Internal Medicine 12/28/23 Chel Montilla MD [address] [place] [address] Specialist Cardiology 02/25/21 Nubia Preston PA-C [address] [place] [address] Cardiology 05/24/21 01/28/23 Joseph Berg MD [address] [place] [address] Specialist Cardiology 01/24/23 Devika Bashir NP [address] [place], [place] [phone] Cardiology 01/29/23 documented as of this encounter
--- OUTSIDE RECORDS SUMMARY | 2025-03-17 08:51 | XMS_ITS | Encounter Summary ---
Author Organization [facility] Address [address] [place] [address] Care Team Providers Care Chief Engineer Production Name Role Phone Royal Pierre MD Primary Care Provider [phone] Chel Montilla MD Unavailable Nubia Preston PA-C Unavailable Unavailab Joseph Thompson MD Unavailable [phone] Devika Bashir NP Unavailable Unavailable [facility], Pcp Primary Care Provider Unavailabl e Encounter Details Date Type Department Care Team Description 03/25/2021 Orders Only Adult Medicine [address] [phone] Chantal Smith PA-C Social History Tobacco Use [...] filedocumented in this encounter Care Teams Chief Engineer Production Relationship Specialty Start Date End Date Royal Pierre MD [address] [place] [address]58 PCP - General Internal Medicine 07/21/20 12/27/23 [facility], Pcp [address] [place] [address] PCP - General Internal Medicine 12/28/23 Chel Montilla MD [address] [place] [address] Specialist Cardiology 02/25/21 Nubia Preston PA-C [address] [place] [address] Cardiology 05/24/21 01/28/23 Joseph Berg MD [address] [place] [address] Specialist Cardiology 01/24/23 Devika Bashir NP [address] [place] [address] Cardiology 01/29/23 documented as of this encounter
--- OUTSIDE RECORDS SUMMARY | 2025-03-17 08:52 | XMS_ITS | Encounter Summary ---
Author Organization [facility] Address [address] [place] [address] Care Team Providers Care Post Anesthesia Room Nurse Name Role Phone Royal Pierre MD Primary Care Provider [phone] Chel Montilla MD Unavailable Nubia Preston PA-C Unavailable Unavailab Joseph Thompson MD Unavailable [phone] Devika Bashir NP Unavailable Unavailable [facility], Pcp Primary Care Provider Unavailabl e Encounter Details Date Type Department Care Team Description 08/08/2022 Security Delivery Specialist Report Medical Records [address] [place] [address] Husam Guerra MD Social History Tobacco Use [...] on filedocumented in this encounter Care Teams Post Anesthesia Room Nurse Relationship Specialty Start Date End Date Royal Pierre MD [address] [place] [address] PCP - General Internal Medicine 07/21/20 12/27/23 [facility], Pcp [address] [place] [address] 9[address]11 PCP - General Internal Medicine 12/28/23 Chel Montilla MD [address] [place] [address] [phone] Specialist Cardiology 02/25/21 Nubia Preston PA-C [address] [place] [address] Cardiology 05/24/21 01/28/23 Joseph Berg MD [address] [place], [place] [phone] Specialist Cardiology 01/24/23 Devika Bashir NP [address] [place] [address] 11750 Cardiology 01/29/23 documented as of this encounter
--- OUTSIDE RECORDS SUMMARY | 2025-03-17 08:52 | XMS_ITS | Encounter Summary ---
Author Organization [facility] Address [address] [facility] [address] [place] [address] Phone Care Team Providers Care Underground Drill Operator Name Role Phone Royal Pierre MD Primary Care Provider [phone] Encounter Details Date Type Department Care Team (Late st Contact Info) Description 04/11/2021 Ancillary Orders [facility],Outside Imaging [address] [place] [address] System, Provider Not In, [facility] [address] [address] Social History Tobacco Use Types Packs/Day Years Used Date Smoking Tobacco: Never Assessed Sex and Gender Information Value Date Recorded Sex Assigned at Not on file Legal Sex Male 10:06 AM EDT Gender Identity Not on file Sexual Orientation Not on file documented as of this encounter Plan of Treatment Not on file documented as of this encounter Results * CT Abdomen/Pelvis Outside (No Interpretation) (03/24/2021 12:00 AM EDT) Narrative SYSTEMGENERATED, DOCUMENTATION - 04/11/2021 10:32 AM EDT This study is for PACS storage only and not for interpretation. us Provider Not In System PhD IMG OUTSIDE IMAGING W /OUT INTERPRETATION Final Result documented in this encounter Visit Diagnoses Not on filedocumented in this encounter Care Teams Underground Drill Operator Relationship Specialty Start Date End Date Royal Pierre MD [address] [place] [address] 36499 PCP - General Internal Medicine 04/08/21 documented as of this encounter Additional Source Comments The information contained in this document represents components of the legal health record. It is not the complete legal health record.[facility]
--- OUTSIDE RECORDS SUMMARY | 2025-03-17 08:52 | XMS_ITS | Encounter Summary ---
Author Organization [facility] Address [address] [place] [address] Care Team Providers Care Security Associate Name Role Phone Anthony Whittaker MD Primary Care Provider [phone] Royal Pierre MD Primary Care Provider Chel Montilla MD Unavailable Nubia Preston PA-C Unavailable Unavailab Joseph Thompson MD Unavailable [phone] Devika Bashir NP Unavailable Unavailable [facility], Pcp Primary Care Provider Unavailabl e Reason for Visit * Reason Onset Date Comments Faxed Refill 03/03/2020 Encounter Details Date Type Department Care Team Description 03/03/2020 Refill Adult Medicine [address] [address] Anthony Whittaker MD [address] [place] [address] Faxed Refill Social History Tobacco Use Types [...] / Plan: [place] / Product Type: MEDICARE [id number] documented in this encounter Plan of Treatment Not on file documented as of this encounter Visit Diagnoses Not on filedocumented in this encounter Care Teams Security Associate Relationship Specialty Start Date End Date Anthony Whittaker MD [address] [place] [address] PCP - General 10/09/1995 07/20/20 Royla Pierre MD [address] [place] [address] PCP - General Internal Medicine 07/21/20 12/27/23 [facility], [place] [phone] PCP - General Internal Medicine 12/28/23 Chel Montilla MD [address] [place] [address] Specialist Cardiology 02/25/21 Nubia Preston PA-C [address] [place] [address]65 Cardiology 05/24/21 01/28/23 Joseph Berg MD [address] [place] [address] Specialist Cardiology 01/24/23 Devika Bashir NP [address] [place] [address] Cardiology 01/29/23 documented as of this encounter
--- OUTSIDE RECORDS SUMMARY | 2025-03-17 08:52 | XMS_ITS | Encounter Summary ---
Author Organization [facility] Address [address] [place] [address] Care Team Providers Care Firer Automatic Stoker Name Role Phone Royal Pierre MD Primary Care Provider [phone] Chel Montilla MD Unavailable Nubia Preston PA-C Unavailable Unavailab Joseph Thompson MD Unavailable [phone] Devika Bashir NP Unavailable Unavailable [facility], Pcp Primary Care Provider Unavailabl e Encounter Details Date Type Department Care Team Description 01/20/2022 Hospital Medical Records [address] [place] [address] [facility] Social History Tobacco [...] on filedocumented in this encounter Care Teams Firer Automatic Stoker Relationship Specialty Start Date End Date Royal Pierre MD [address] [place] [address] [phone] PCP - General Internal Medicine 07/21/20 12/27/23 [facility], Pcp [address] [place] [address] PCP - General Internal Medicine 12/28/23 Chel Montilla MD [address] [place] [address] Specialist Cardiology 02/25/21 Nubia Preston PA-C [address] [place] [address] Cardiology 05/24/21 01/28/23 Joseph Berg MD [address] [place] [address] Specialist Cardiology 01/24/23 Devika Bashir NP [address] [place] [address] Cardiology 01/29/23 documented as of this encounter
--- OUTSIDE RECORDS SUMMARY | 2025-03-17 08:52 | XMS_ITS | Encounter Summary ---
Author Organization [facility] Address [address] [place] [address] Care Team Providers Care Bell Staff Name Role Phone Anthony Whittaker MD Primary Care Provider [phone] Royal Pierre MD Primary Care Provider [phone] Chel Montilla MD Unavailable Nubia Preston PA-C Unavailable Unavailab Joseph Thompson MD Unavailable [phone] Devika Bashir NP Unavailable Unavailable [facility], Pcp Primary Care Provider Unavailabl e Encounter Details Date Type Department Care Team Description 11/11/2011 Hospital Medical Records [address] [place] [address] Jase Sandra MD Social History Tobacco Use [...] on filedocumented in this encounter Care Teams Bell Staff Relationship Specialty Start Date End Date Anthony Whittaker MD [address] [place] [address] PCP - General 10/09/1995 07/20/20 Royal Pierre MD [address] [place] [address]20 PCP - General Internal Medicine 07/21/20 12/27/23 [facility], Pcp [address] [place] [address] PCP - General Internal Medicine 12/28/23 Chel Montilla MD [address] [place] [address] Specialist Cardiology 02/25/21 Nubia Preston PA-C [address] [place] [address] Cardiology 05/24/21 01/28/23 Joseph Berg MD [address] [place] [address] Specialist Cardiology 01/24/23 Devika Bashir NP [address] [place] [address] Cardiology 01/29/23 documented as of this encounter
--- OUTSIDE RECORDS SUMMARY | 2025-03-17 08:52 | XMS_ITS | Encounter Summary ---
Author Organization [facility] Address [address] [place] [address] Care Team Providers Care Grip Wrapper Name Role Phone Royal Pierre MD Primary Care Provider [phone] Chel Montilla MD Unavailable Nubia Preston PA-C Unavailable Unavailab Joseph Thompson MD Unavailable [phone] Devika Bashir NP Unavailable Unavailable [facility], Pcp Primary Care Provider Unavailabl e Reason for Visit * Reason Onset Date Comments hospital follow up 12/08/2021 Encounter Details Date Type Department Care Team Description 12/08/2021 Telephone Adult Medicine [address] [phone] Royal Pierre MD [address] [place] [address] [phone] hospital follow up Social History Tobacco Use [...] on filedocumented in this encounter Care Teams Grip Wrapper Relationship Specialty Start Date End Date Royal Pierre MD [address] [place] [address] PCP - General Internal Medicine 07/21/20 12/27/23 [facility], Pcp [address] [place] [address] 9[address] PCP - General Internal Medicine 12/28/23 Chel Montilla MD [address] [place] [address] Specialist Cardiology 02/25/21 Nubia Preston PA-C [address] [place] [address] 27685 Cardiology 05/24/21 01/28/23 Joseph Berg MD [address] [place] [address] Specialist Cardiology 01/24/23 Devika Bashir NP [address] [place] [address] 13544 Cardiology 01/29/23 documented as of this encounter
--- OUTSIDE RECORDS SUMMARY | 2025-03-17 08:52 | XMS_ITS | Encounter Summary ---
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 - 12/28/2021 3:27 PM EDT Primary Dual Pacemaker 45069 Dx SSS I49.5 w/ JPM at [facility] on 01.20.22 * Telephone Encounter - Heather Dong C.M.A. - 12/21/2021 12:03 PM EDT I gave JERRY EP order sheet to fill out appropriate vendors, tools and requirements to book procedure.When returned to mt by I will book arturo. documented in this encounter Plan of Treatment Not on file documented as of this encounter Visit Diagnoses Diagnosis SSS (sick sinus syndrome) (HCC)- Primary Sinoatrial node dysfunction documented in this encounter Care Teams Supervisor Shed Workers Relationship Specialty Start Date End Date Royal Pierre MD [address] [place] [address] PCP - General Internal Medicine 07/21/20 12/27/23 [facility], Pcp [address] [place] [address] PCP - General Internal Medicine 12/28/23 Chel Montilla MD [address] [place] [address] Specialist Cardiology 02/25/21 Nubia Preston PA-C [address] [place], [place] [phone] Cardiology 05/24/21 01/28/23 Joseph Berg MD [address] [place] [address] Specialist Cardiology 01/24/23 Devika Bashir NP [address] [place] [address] Cardiology 01/29/23 documented as of this encounter
--- OUTSIDE RECORDS SUMMARY | 2025-03-17 08:52 | XMS_ITS | Encounter Summary ---
Author Organization [facility] Address [address] [place] [address] [place] [address] Phone Care Team Providers Care Panel Installer Name Role Phone Royal Pierre MD Primary Care Provider [phone] Encounter Details Date Type Department Care Team (Late st Contact Info) Description 04/11/2021 Ancillary Orders [facility],Outside Imaging [address] [place] [address] System, Provider Not In, [facility] [address] [address] Social History Tobacco Use Types Packs/Day Years Used Date Smoking Tobacco: Never Assessed Sex and Gender Information Value Date Recorded Sex Assigned at Not on file Legal Sex Male 10:06 AM EDT Gender Identity Not on file Sexual Orientation Not on file documented as of this encounter Plan of Treatment Not on file documented as of this encounter Results * NM Other Outside (No Interpretation) (03/28/2021 12:00 AM EDT) Narrative SYSTEMGENERATED, DOCUMENTATION - 04/11/2021 10:35 AM EDT This study is for PACS storage only and not for interpretation. us Provider Not In System PhD IMG OUTSIDE IMAGING W /OUT INTERPRETATION Final Result documented in this encounter Visit Diagnoses Not on filedocumented in this encounter Care Teams Panel Installer Relationship Specialty Start Date End Date Royal Pierre MD [address] [place] [address] PCP - General Internal Medicine 04/08/21 documented as of this encounter Additional Source Comments The information contained in this document represents components of the legal health record. It is not the complete legal health record.[facility]
--- OUTSIDE RECORDS SUMMARY | 2025-03-17 08:52 | XMS_ITS | Encounter Summary ---
Author Organization [facility] Address [address] [place] [address] Care Team Providers Care Liquor Merchant Name Role Phone Anthony Whittaker MD Primary Care Provider Royal Pierre MD Primary Care Provider [phone] Chel Montilla MD Unavailable Nubia Preston PA-C Unavailable Unavailab Joseph Thompson MD Unavailable [phone] Devika Bashir NP Unavailable Unavailable [facility], Pcp Primary Care Provider Unavailabl e Encounter Details Date Type Department Care Team Description 05/16/2019 Abalone Fisherman Report Medical Records [address] [place] [address] [facility] Social History Tobacco Use Types [...] on filedocumented in this encounter Care Teams Liquor Merchant Relationship Specialty Start Date End Date Anthony Whittaker MD [address] [place] [address] PCP - General 10/09/1995 07/20/20 Royal iPerre MD [address] [place] [address] 0[address]20 PCP - General Internal Medicine 07/21/20 12/27/23 [facility], Pcp [address] [place] [address] PCP - General Internal Medicine 12/28/23 Chel Montilla MD [address] [place] [address] Specialist Cardiology 02/25/21 Nubia Preston PA-C [address] [place] [address] Cardiology 05/24/21 01/28/23 Joseph Berg MD [address] [place] [address] Specialist Cardiology 01/24/23 Devika Bashir NP [address] [place] [address] Cardiology 01/29/23 documented as of this encounter
--- OUTSIDE RECORDS SUMMARY | 2025-03-17 08:52 | XMS_ITS | Encounter Summary ---
Author Organization [facility] Address [address] [place] [address] Care Team Providers Care Strong Nitric Operator Name Role Phone Anthony Whittaker MD Primary Care Provider Royal Pierre MD Primary Care Provider Chel Montilla MD Unavailable Nubia Preston PA-C Unavailable Unavailab Joseph Thompson MD Unavailable [phone] Devika Bashir NP Unavailable Unavailable [facility], Pcp Primary Care Provider Unavailabl e Reason for Visit * Reason Onset Date Comments Call From Office 10/07/2019 Encounter Details Date Type Department Care Team Description 10/07/2019 Telephone Adult [address] [phone] Anthony Whittaker MD [address] [place] [address] [phone] Call From Md Office Social History Tobacco [...] on filedocumented in this encounter Care Teams Strong Nitric Operator Relationship Specialty Start Date End Date Anthony Whittaker MD [address] [place] [address]228 PCP - General 10/09/1995 07/20/20 Royal Pierre MD [address] [place] [address] 27018 PCP - General Internal Medicine 07/21/20 12/27/23 [facility], Pcp [address] [place] [address] PCP - General Internal Medicine 12/28/23 Chel Montilla MD [address] [place] [address] Specialist Cardiology 02/25/21 Nubia Preston PA-C [address] [place] [address] Cardiology 05/24/21 01/28/23 Joseph Berg MD [address] [place] [address] Specialist Cardiology 01/24/23 Devika Bashir NP [address] [place] [address] Cardiology 01/29/23 documented as of this encounter
--- OUTSIDE RECORDS SUMMARY | 2025-03-17 08:52 | XMS_ITS | Encounter Summary ---
Author Organization [facility] Address [address] [place] [address] Care Team Providers Care Manager Camp Name Role Phone Anthony Whittaker MD Primary Care Provider [phone] Royal Pierre MD Primary Care Provider [phone] Chel Montilla MD Unavailable Nubia Preston PA-C Unavailable Unavailab Joseph Thompson MD Unavailable [phone] Devika Bashir NP Unavailable [facility], Pcp Primary Care Provider Unavailabl e Encounter Details Date Type Department Care Team Description 2017 Release of Information Medical Records [address] [place] [address] Abstract, Provider Social History Tobacco Use Types [...] filedocumented in this encounter Care Teams Manager Camp Relationship Specialty Start Date End Date Anthony Whittaker MD [address] [place] [address] PCP - General 10/09/1995 07/20/20 Royal Pierre MD [address] [place] [address] [phone] PCP - General Internal Medicine 07/21/20 12/27/23 [facility], Pcp [address] [place] [address] PCP - General Internal Medicine 12/28/23 Chel Montilla MD [address] [place] [address] Specialist Cardiology 02/25/21 Nubia Preston PA-C [address] [place] [address] Cardiology 05/24/21 01/28/23 Joseph Berg MD [address] [place] [address] Specialist Cardiology 01/24/23 Devika Bashir NP [address] [place] [address] Cardiology 01/29/23 documented as of this encounter
--- OUTSIDE RECORDS SUMMARY | 2025-03-17 08:52 | XMS_ITS | Clinical Summary ---
Author Organization [facility] Address [address] [facility] [address] [place] [address] Phone Care Team Providers Care Assembling Inspector Name Role Phone Royal Pierre MD Primary Care Provider [phone] Allergies No known active allergies Medications alendronate (FOSAMAX) 35 MG tablet Take 70 mg by mouth every 7 days. Take in the morning with a full glass of water, on an empty stomach, and do not take anything else by mouth or lie down for the next 30 min. Active allopurinol (ZYLOPRIM) 100 MG tablet Take 100 mg by mouth daily. Active aspirin 81 mg chewable tablet Take 81 mg by mouth daily. Active atorvastatin (LIPITOR) 40 MG tablet Take 40 mg by mouth daily. Active carvedilol (COREG) 25 MG tablet Take 25 mg by mouth 2 (two) times a day with meals. Active sacubitriL-valsar leiva (SACUBITRIL-VALSA RTAN) 49-51 mg per tablet Take 1 tablet by mouth 2 (two) times a day. Active finasteride (PROSCAR) 5 mg tablet Take 5 mg by mouth daily. Active loratadine (CLARITIN) 10 mg tablet Take 10 mg by mouth daily. Active nitroglycerin (NITROSTAT) 0.[address] 0.4 mg under the tongue every 5 (five) minutes as needed for chest pain. Active budesonide-formot lukas (SYMBICORT) 80-4.5 mcg/actuation inhaler Inhale 2 puffs into the lungs daily. Active leuprolide, 6 month, (ELIGARD 6 MONTH) 45 mg subcutaneous injection syringe Inject 45 mg under the skin every 6 (six) months. First dose with Dr Guerra on 03/24/21 Active fluticasone-umecl idin-vilanter (TRELEGY ELLIPTA) 100-62.5-25 mcg inhalation powder Inhale 1 puff into the lungs daily. Active tamsulosin (FLOMAX) 0.4 mg Cap Take 1 capsule (0.4 mg total) by mouth daily. 90 capsule 1 2 Active Active Problems Problem Noted Date Diagnosed Date Prostate CA 04/27/2021 Family History Medical History Relation Comments Cancer Brother Relation Status Comments Brother Alive Social History Tobacco Use Types Packs/Day Years Used Date Smoking Tobacco: Former Cigarettes 2 30 1 0 - 1989 Cigars Smokeless Tobacco: Never Alcohol Use Standard Drinks/Week Comments Not Currently 0 (1 standard drink = 0.6 oz pur e alcohol) Education Answer Date Recorded Are you interested in more education? Not on ulises e 11/11/2022 Are you concerned about learning? Not on file 11/11/2022 No 11/11/2022 No 11/11/2022 Digital Access Answer Date Recorded No 12/05/2022 No 12/05/2022 No 12/05/2022 Reliable internet access at home? Not on file 12/05/2022 Device with a working camera? Not on file Sex and Gender Information Value Date Recorded Sex Assigned at Not on file Legal Sex Male 10:06 AM EDT Gender Identity Not on file Sexual Orientation Not on file Last Filed Vital Signs Vital Sign Reading Time Taken Comments Blood Pressure 123/68 08/15/2021 8:24 AM EST Pulse 82 08/15/2021 8:24 AM EST Temperature - - Respiratory Rate - - Oxygen Saturation 96% 08/15/2021 8:24 AM EST Inhaled Oxygen Concentration - - Weight 73.3 kg (161 lb 11.2 oz) 08/15/2021 8:24 AM EST Height - - Body Mass Index - - Plan of Treatment Health Maintenance Due Date Last Done Comments CREATININE LEVEL 1940 DEPRESSION SCREENING 1952 RSV VACCINE (1 - 1-dose 75+ series) 09/28/2015 COVID-19 VACCINE (2023-2 5 season) 2024 09/13/2020, 08/13/2020 Adult Td,Tdap Booster 06/02/2025 06/02/2015 , 02/23/2005 PNEUMOCOCCAL VACCINES (50+ years) Completed 12/01/2014, 06/14/2006 ZOSTER VACCINES Completed 06/15/2020, 04/01/2020, 04/28/2010 HEPATITIS A VACCINES Aged Out No long er eligible based on patient's age to complete this topic HIB VACCINES Aged Out No longer eligi ble based on patient's age to complete this topic MENINGOCOCCAL VACCINES (ACWY) Aged Out No longer eligible based on patient's age to complete this topic MENINGOCOCCAL VACCINES (B) Aged Out N o longer eligible based on patient's age to complete this topic Medical Devices Not on file Insurance MEDICARE PART A & B [facility] MED[facility] ENHANCE SUPPLEMENT MEDICARE PART A & B [facility] MEDICARE ENHANCE SUPPLEMENT MEDICARE PART A & B [facility] MEDICARE ENHANCE SUPPLEMENT MEDICARE PART A & B MEDICARE ENHANCE [place] [address] MEDICARE PART A & B [facility] MEDICARE ENHANCE SUPPLEMENT MEDICARE PART A & B [facility] MEDICARE ENHANCE SUPPLEMENT MEDICARE PART A & B [facility] MEDICARE ENHANCE SUPPLEMENT [facility] [place] [place]: [address] [place] [id number] MEDICARE PART A & [place] [address] MEDICARE ENHANCE SUPPLEMENT [facility] [place] Address: [facility] [address] [place] [id number] MEDICARE PART A & [place] [address] MEDICARE ENHANCE SUPPLEMENT Advance Directives For more information, please contact: [phone] (9AM - 5PM [facility], Sunday-Sunday) Documents on File Type Date Recorded Patient Assistant Branch Operations Manager Expl anation MOLST 04/27/2021 MOLST Care Teams Assembling Inspector Relationship Specialty Start Date End Date Royal Pierre MD [address] [place] [address] PCP - General Internal Medicine 04/08/21 Additional Source Comments The information contained in this document represents components of the legal health record. It is not the complete legal health record.[facility]
--- OUTSIDE RECORDS SUMMARY | 2025-03-17 08:52 | XMS_ITS | Encounter Summary ---
Author Organization [facility] Address [address] [place] [address] Care Team Providers Care Head Swamper Name Role Phone Anthony Whittaker MD Primary Care Provider Royal Pierre MD Primary Care Provider [phone] Chel Montilla MD Unavailable Nubia Preston PA-C Unavailable Unavailab Joseph Thompson MD Unavailable [phone] Devika Bashir NP Unavailable Unavailable [facility], Pcp Primary Care Provider Unavailabl e Encounter Details Date Type Department Care Team Description 04/26/2020 Orders Only Adult Medicine [address] [id number] Reno Marie PA-C [address] [place] [address] [id number] Soft tissue mass Social History Tobacco Use [...] PA-C [facility] [address] [place] [address] documented in this encounter Visit Diagnoses Diagnosis Soft tissue mass Disorders of soft tissue, unspecified documented in this encounter Care Teams Head Swamper Relationship Specialty Start Date End Date Anthony Whittaker MD [address] [place] [address] PCP - General 10/09/1995 07/20/20 Royal Pierre MD [address] [place] [address] PCP - General Internal Medicine 07/21/20 12/27/23 [facility], [address] [address] PCP - General Internal Medicine 12/28/23 Chel Montilla MD [address] [place] [address] Specialist Cardiology 02/25/21 Nbuia Preston PA-C [address] [place] [address] Cardiology 05/24/21 01/28/23 Joseph Berg MD [address] [place] [address] Specialist Cardiology 01/24/23 Devika Bashir NP [address] [place] [address] Cardiology 01/29/23 documented as of this encounter
--- OUTSIDE RECORDS SUMMARY | 2025-03-17 08:52 | XMS_ITS | Encounter Summary ---
Author Organization [facility] Address [address] [place] [address] Care Team Providers Care Carbonizer Name Role Phone Royal Pierre MD Primary Care Provider [phone] Chel Montilla MD Unavailable Nubia Preston PA-C Unavailable Unavailab Joseph Thompson MD Unavailable [phone] Devika Bashir NP Unavailable Unavailable [facility], Pcp Primary Care Provider Unavailabl e Reason for Visit * Reason Comments E-prescribe Rx Request Encounter Details Date Type Department Care Team Description 08/28/2021 Refill Adult Medicine [address] [id number] Raya Guillen NP E-prescribe Rx Request Social [...] on filedocumented in this encounter Care Teams Carbonizer Relationship Specialty Start Date End Date Royal Pierre MD [address] [place] [address] PCP - General Internal Medicine 07/21/20 12/27/23 [facility], Pcp [address] [place] [address] PCP - General Internal Medicine 12/28/23 Chel Montilla MD [address] [place] [address] Specialist Cardiology 02/25/21 Nubia Preston PA-C [address] [place] [address] Cardiology 05/24/21 01/28/23 Joseph Berg MD [address] [place] [address] Specialist Cardiology 01/24/23 Devika Bashir NP [address] [place] [address] Cardiology 01/29/23 documented as of this encounter
--- OUTSIDE RECORDS SUMMARY | 2025-03-17 08:52 | XMS_ITS | Encounter Summary ---
Author Organization [facility] Address [address] [place] [address] Care Team Providers Care Controller Repairer And Tester Name Role Phone Royal Pierre MD Primary Care Provider [phone] Chel Montilla MD Unavailable Nuiba Preston PA-C Unavailable Unavailab Joseph Thompson MD Unavailable Devika Bashir NP Unavailable Unavailable [facility], Pcp Primary Care Provider Unavailabl e Reason for Visit * Reason Comments E-prescribe Rx Request Encounter Details Date Type Department Care Team Description 08/29/2021 Refill Adult Medicine [address] [id number] Raya Guillen NP E-prescribe Rx Request Social [...] / Plan: [place] / Product Type: MEDICARE [id number] documented in this encounter Plan of Treatment Not on file documented as of this encounter Visit Diagnoses Not on filedocumented in this encounter Care Teams Controller Repairer And Tester Relationship Specialty Start Date End Date Royal Pierre MD [address] [place] [address] PCP - General Internal Medicine 07/21/20 12/27/23 [facility] [address] [place] [address] PCP - General Internal Medicine 12/28/23 Chel Montilla MD [address] [place] [address] Specialist Cardiology 02/25/21 Nubia Preston PA-C [address] [place] [address] Cardiology 05/24/21 01/28/23 Joseph Berg MD [address] [place] [address] Specialist Cardiology 01/24/23 Devika Bashir NP [address] [place] [address] Cardiology 01/29/23 documented as of this encounter
--- OUTSIDE RECORDS SUMMARY | 2025-03-17 08:52 | XMS_ITS | Encounter Summary ---
Author Organization [facility] Address [address] [place] [address] Care Team Providers Care Grade Tamper Name Role Phone Royal Pierre MD Primary Care Provider Chel Montilla MD Unavailable Nubia Preston PA-C Unavailable Unavailab Joseph Thompson MD Unavailable [phone] Devika Bashir NP Unavailable Unavailable [facility], Pcp Primary Care Provider Unavailabl e Encounter Details Date Type Department Care Team Description 01/20/2022 Hospital Medical Records [address] [place] [id number] [facility] Social History Tobacco Use Types Packs/Day Years [...] on filedocumented in this encounter Care Teams Grade Tamper Relationship Specialty Start Date End Date Royal Pierre MD [address] [place] [address] [phone] PCP - General Internal Medicine 07/21/20 12/27/23 [facility], Pcp [address] [place] [address] PCP - General Internal Medicine 12/28/23 Chel Montilla MD [address] [place] [address] Specialist Cardiology 02/25/21 Nubia Preston PA-C [address] [place] [address] Cardiology 05/24/21 01/28/23 Joseph Berg MD [address] [place] [address] Specialist Cardiology 01/24/23 Devika Bashir NP [address] [place] [address] Cardiology 01/29/23 documented as of this encounter
--- OUTSIDE RECORDS SUMMARY | 2025-03-17 08:52 | XMS_ITS | Encounter Summary ---
Author Organization [facility] Address [address] [place] [address] Care Team Providers Care Civil Engineering Specialist Name Role Phone Anthony Whittaker MD Primary Care Provider Royal Pierre MD Primary Care Provider Chel Montilla MD Unavailable Nubia Preston PA-C Unavailable Unavailab Joseph Thompson MD Unavailable [phone] Devika Bashir NP Unavailable Unavailable [facility], Pcp Primary Care Provider Unavailabl e Reason for Visit * Reason Onset Date Comments LAB WORK 04/09/2020 Encounter Details Date Type Department Care Team Description 04/09/2020 Telephone Adult Medicine [address] [phone] Anthony Whittaker MD [address] [place] [address] LAB WORK Social History Tobacco Use Types [...] to have [facility] lab [facility] Cbc with auto diff, rbc,lipids documented in this encounter Plan of Treatment Not on file documented as of this encounter Visit Diagnoses Not on filedocumented in this encounter Care Teams Civil Engineering Specialist Relationship Specialty Start Date End Date Anthony Whittaker MD [address] [place] [address] PCP - General 10/09/1995 07/20/20 Royal Pierre MD [address] [place] [address] PCP - General Internal Medicine 07/21/20 12/27/23 [facility], Pcp [address] [place] [address] PCP - General Internal Medicine 12/28/23 Chel Montilla MD [address] [place] [address] Specialist Cardiology 02/25/21 Nubia Preston PA-C [address] [place] [address] Cardiology 05/24/21 01/28/23 Joseph Berg MD [address] [place] [address] Specialist Cardiology 01/24/23 Devika Bashir NP [address] [place] [address] Cardiology 01/29/23 documented as of this encounter
--- OUTSIDE RECORDS SUMMARY | 2025-03-17 08:52 | XMS_ITS | Encounter Summary ---
Author Organization [facility] Address [address] [place] [address] Care Team Providers Care Tea Tree Farm Worker Name Role Phone Royal Pierre MD Primary Care Provider [phone] Chel Montilla MD Unavailable Nubia Perston PA-C Unavailable Unavailab Joseph Thompson MD Unavailable [phone] Devika Bashir NP Unavailable Unavailable [facility], Pcp Primary Care Provider Unavailabl e Encounter Details Date Type Department Care Team Description 12/06/2021 Wireless Development Manager Report Medical Records [address] [place] [address] [phone] Social History Tobacco Use Types Packs/Day Years [...] on filedocumented in this encounter Care Teams Tea Tree Farm Worker Relationship Specialty Start Date End Date Royal Pierre MD [address] [place], [place] [phone] PCP - General Internal Medicine 07/21/20 12/27/23 [facility], Pcp [address] [place] [address] PCP - General Internal Medicine 12/28/23 Chel Montilla MD [address] [place] [address] Specialist Cardiology 02/25/21 Nubia Preston PA-C [address] [place] [address] Cardiology 05/24/21 01/28/23 Joseph Berg MD [address] [place] [address] Specialist Cardiology 01/24/23 Devika Bashir NP [address] [place] [address] Cardiology 01/29/23 documented as of this encounter
--- OUTSIDE RECORDS SUMMARY | 2025-03-17 08:52 | XMS_ITS | Clinical Summary ---
Author Organization [facility] Address [address] [place] [address] Care Team Providers Care Food And Beverage Outlets Manager Name Role Phone Chel Montilla MD Unavailable Joseph Berg MD Unavailable [phone] Devika Bashir NP Unavailable Unavailable Community, [...] as frequent [place]. Prostate cancer 03/25/2021 Overview: [facility] Urology service with Dr. Guerra- bicalutamide initiated 03/11/21, radiation treatment at [facility] Ischemic cardiomyopathy 01/28/2021 Last Assessment & [...] reversible defects - sees dr. Smith at [facility] Last Assessment & Plan: Stable coronary [...] 72 06/28/2023 9:04 AM EST Temperature 36.6 C (97.8 F) 06/28/2023 9:04 AM EST Respiratory Rate 14 06/28/2023 9:04 AM EST [...] 09/19/2023 09/18/2022, 01/22/2021, 03/26/2020, Additional history exists DEPRESSION SCREEN 05/14/2024 05/14/2023 (Co mpleted), 05/14/2023, 04/03/2022, Additional history exists FALL RISK ASSESSMENT 05/14/2024 05/14/2023 (Completed), 04/03/2022, 04/03/2022, Additional history exists BMI CHECK/ADVISE 07/16/2024 06/28/2023, , 04/03/2022, Additional history exists Covid-19 Vaccine (4 - 2022-2 4 season) 2025 04/17/2023, 09/13/2020, 08/13/2020 INFLUENZA (#1) 2025 04/17/2023, 09/2022, 04/03/2022, Additional history exists DTAP/TDAP/TD (2 - Td or Tdap) 06/02/2025 06/02/2015, 02/23/2005 PNEUMOCOCCAL VACCINE Completed 12/01/2014, 06/14/20 06 SHINGLES VACCINE Discontinued 06/15/2020, , 04/28/2010 Care Teams Food And Beverage Outlets Manager Relationship Specialty Start Date End Date Community, Pcp PCP - General Internal Medicine 12/28/23 Chel Montilla MD Specialist Cardiology 02/25/21 Joseph Berg MD Specialist Cardiology 01/24/23 Devika Bashir NP Cardiology 01/29/23
--- OUTSIDE RECORDS SUMMARY | 2025-03-17 08:52 | XMS_ITS | Encounter Summary ---
Author Organization [facility] Address [address] [place] [address] Phone Care Team Providers Care Dental Insurance Biller Name Role Phone Royal Pierre MD Primary Care Provider [phone] Reason for Visit * Reason Comments Rad Onc discharge Encounter Details Date Type Department Care Team (Late st Contact Info) Description 08/19/2021 Documentation [facility] Rad Onc [address] [place] [address] Guadalupe El DC [address] [place] [address] [email or web address] Rad Onc discharge Social History Tobacco Use Types Packs/Day Years Used Date Smoking Tobacco: Former Cigarettes 1 0 - 1989 Cigars Smokeless Tobacco: Never Alcohol Use Standard Drinks/Week Comments Not Currently 0 (1 standard drink = 0.6 oz pur e alcohol) Sex and Gender Information Value Date Recorded Sex Assigned at Not on file Legal Sex Male 10:06 AM EDT Gender Identity Not on file Sexual Orientation Not on file documented as of this encounter Plan of Treatment Not on file documented as of this encounter Visit Diagnoses Not on filedocumented in this encounter Care Teams Dental Insurance Biller Relationship Specialty Start Date End Date Royal Pierre MD [address] [place] [address] PCP - General Internal Medicine 04/08/21 documented as of this encounter Additional Source Comments The information contained in this document represents components of the legal health record. It is not the complete legal health record.[facility]
--- OUTSIDE RECORDS SUMMARY | 2025-03-17 08:52 | XMS_ITS | Encounter Summary ---
Author Organization [facility] Address [address] [place] [address] Care Team Providers Care Suction Dredge Dumping Supervisor Name Role Phone Anthony Whittaker MD Primary Care Provider [phone] Royal Pierre MD Primary Care Provider [phone] Chel Montilla MD Unavailable Nubia Preston PA-C Unavailable Unavailab Joseph Thompson MD Unavailable [phone] Devika Bashir NP Unavailable Unavailable [facility], Pcp Primary Care Provider Unavailabl e Encounter Details Date Type Department Care Team Description 03/27/2017 Marketing And Public Relations Manager Report Medical Records [address] [place] [address] Ken Allen MD Social History Tobacco Use [...] on filedocumented in this encounter Care Teams Suction Dredge Dumping Supervisor Relationship Specialty Start Date End Date Anthony Whittaker MD [address] [place] [address] PCP - General 10/09/1995 07/20/20 Royal Pierre MD [address] [place] [address] PCP - General Internal Medicine 07/21/20 12/27/23 [facility], Pcp [address] [place] [address] PCP - General Internal Medicine 12/28/23 Chel Montilla MD [address] [place] [address] Specialist Cardiology 02/25/21 Nubia Preston PA-C [address] [place] [address] Cardiology 05/24/21 01/28/23 Joseph Berg MD [address] [place] [address] Specialist Cardiology 01/24/23 Devika Bashir NP [address] [place] [address] Cardiology 01/29/23 documented as of this encounter
[2025-03-17 09:15] LABS: Hematocrit 38.8 % (42.0-52.0); Hemoglobin 14.0 g/dl (14.0-18.0); Imm Gran Abs Auto 0.03 X10*3/uL (0.00-0.03); Imm Gran Pct Auto 0.4 % (0.0-0.4); Lymphocytes Absolute Auto 1.3 X10*3/uL (1.2-4.9); Mean Corpuscular HGB Conc 36.1 g/dl (31.0-36.0); Mean Corpuscular Hemoglobin 34.6 pg (27.0-33.0); Mean Corpuscular Volume 95.8 fL (80.0-98.0); NRBC Abs Auto 0.000 X10*3/uL (0.0-0.012); NRBC Pct Auto 0.0 /100WBC (0.0-0.2); Platelet Count 206 X10*3/uL (160-400); Red Blood Count 4.05 X10*6/uL (4.60-5.80); Reticulocytes Absolute 0.086 X10*6/uL (0.026-0.095); White Blood Count 7.2 X10*3/uL (4.8-10.8)
[2025-03-17 09:19] LABS: Hemoglobin A1C 146.1795 umol/L; Total Hemoglobin (HGBA1C) 3559.2001 umol/L
[2025-03-17 09:59] LABS: Alanine Aminotransferase 17 U/L (0-40); Albumin Level 4.4 g/dL (3.5-5.0); Alkaline Phosphatase 59 U/L (39-117); Anion Gap 10 (12-20); Aspartate Amino Transferase 25 U/L (5-37); Blood Urea Nitrogen 14 mg/dL (9-16); Calcium 9.2 mg/dL (8.4-10.2); Carbon Dioxide 27 mmol/L (22-29); Chloride 101 mmol/L (96-108); Cholesterol 115 mg/dL (<200); Estimated Glomerular Filt Rate > 60; HDL Cholesterol 51 mg/dL (>40); Iron 76 mcg/dL (45-160); Magnesium 2.2 mg/dL (1.6-2.6); Percent Iron Saturation 29 % (15-50); Potassium 4.3 mmol/L (3.3-5.1); Sodium 134 mmol/L (135-145); Total Iron Binding Capacity 261 mcg/dL (228-428); Total Protein 7.0 g/dL (6.5-8.0); Triglycerides 65 mg/dL (<150); Unsaturated Iron Binding 185 ug/dL
[2025-03-17 10:14] LABS: Ferritin 62 ng/mL (20-250); Free T4 (Free Thyroxine) 1.13 ng/dL (0.71-1.85); Thyroid Stimulating Hormone 1.26 uIU/mL (0.32-4.0)
[2025-03-17 10:15] LABS: Prostate Specific Antigen < 0.10 ng/mL (<0.05-4.0)
[2025-03-17 10:18] LABS: Folate 8.4 ng/mL (> or = 4.0); Vitamin B12 330 pg/mL (200-900)
== END 2025-03-17 08:16 | disposition home or self-care (01) ==
LOC: HO.LAB 08:15
PROVIDERS: Absent Provider Urology; PCP Internal Medicine; Visit Provider Internal Medicine
DX: C61 Malignant neoplasm of prostate (principal); I25.10 Atherosclerotic heart disease of native coronary artery without angina pectoris; E78.00 Pure hypercholesterolemia, unspecified; Z13.1 Encounter for screening for diabetes mellitus; Z12.5 Encounter for screening for malignant neoplasm of prostate
CPT/HCPCS: 36415; 80053; 80061; 82607; 82728; 82746; 83036; 83540; 83735; 84153; 84403; 84439; 84443; 85025; 85045

== ENCOUNTER → 2025-03-26 23:59 | Outpatient (BNV) | payer MEDICARE, OTHER, SELFPAY ==
--- NOTE | 2025-04-02 20:56 | MHC.OFFVIS ---
Intake Visit Reasons: Remote ICD check-Biotronik Allergies No Known Allergies (No Known Allergies*) Allergy (Verified 12/25/24 13:32) FOR[facility]LY [facility] Medical History Pulmonary fibrosis Colonic mass Allergies Dental abscess Dysphagia Elevated PSA Abrasion Bursitis of left shoulder Joint pain Effusion, left knee Prostate nodule Microscopic hematuria Bladder outlet obstruction Pes anserinus bursitis of right knee Effusion, right knee Ventricular tachycardia Ischemic cardiomyopathy Atherosclerotic cardiovascular disease Cardiomyopathy Pacemaker ILD (interstitial lung disease) Pulmonary nodules COPD (chronic obstructive pulmonary disease) Bursitis of right shoulder Medial meniscus tear Osteoarthritis of right knee Surgical History History of carpal tunnel release History of cholecystectomy History of tonsillectomy History of colonoscopy Family History Father No problems noted. Mother No problems noted. Son No problems noted. Social History Household Members: Spouse Housing: House Are you a primary child care sitter to a significant other at home: No Do you presently have visiting nurse or other home services: No Alcohol intake: current Alcohol intake frequency: does not drink Alcohol type: beer Comment: once Q 3-6 month glass of wine Patient Tobacco Use Status: Former Tobacco user Tobacco use type: Cigarette Years Smoked: 30 years e-Cigarette/Vaping Use: Never Used Second Hand Smoke Exposure: Yes Advance Directives Date on File: 06/24/23 service: No Current occupational status: retired 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 Cognitive needs: No Hearing needs: Yes Vision needs: Yes Office Procedures Cardiac Device Check Cardiac Device Check Details: Date of service 03/26/2025; Battery status OK; normal lead parameters; no treated VT/VF; normal ICD function. [id number] Cardiac Interrogation, implant defibrillator w/interim Procedure code (CPT) selection complete Assessment & Plan Assessment & Plan (1) ICD (implantable cardioverter-defibrillator) in place: Code(s): Z95.810 - Presence of automatic (implantable) cardiac defibrillator Category: Medical (2) Ischemic cardiomyopathy: Code(s): I25.5 - Ischemic cardiomyopathy Category: Medical Plan x Coding Level of Care Code Procedure Only Diagnoses ICD (implantable cardioverter-defibrillator) in place Z95.810 Ischemic cardiomyopathy I25.5 CPT Codes Cardiac Device Check - Cardiac Device 13: [id number] Cardiac Interrogation, implant defibrillator w/interim ([id number])
== END ==
PROVIDERS: PCP Internal Medicine; Visit Provider Internal Medicine
DX: I25.5 Ischemic cardiomyopathy (principal); Z95.810 Presence of automatic (implantable) cardiac defibrillator
CPT/HCPCS: 93295

== ENCOUNTER → 2025-03-27 23:59 | Outpatient (BNV) | payer MEDICARE, OTHER, SELFPAY ==
--- NOTE | 2025-04-02 20:55 | A.OFFVIS_ITS ---
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 Allergies No Known Allergies (No Known Allergies*) Allergy (Verified 12/25/24 13:32) [facility] Medical History Pulmonary fibrosis Colonic mass Allergies Dental abscess Dysphagia Elevated PSA Abrasion Bursitis of left shoulder Joint pain Effusion, left knee Prostate nodule Microscopic hematuria Bladder outlet obstruction Pes anserinus bursitis of right knee Effusion, right knee Ventricular tachycardia Ischemic cardiomyopathy Atherosclerotic cardiovascular disease Cardiomyopathy Pacemaker ILD (interstitial lung disease) Pulmonary nodules COPD (chronic obstructive pulmonary disease) Bursitis of right shoulder Medial meniscus tear Osteoarthritis of right knee Surgical History History of carpal tunnel release History of cholecystectomy History of tonsillectomy History of colonoscopy Family History Father No problems noted. Mother No problems noted. Son No problems noted. Social History Household Members: Spouse Housing: House Are you a primary healthcare economics consultant to a significant other at home: No Do you presently have visiting nurse or other home services: No Alcohol intake: current Alcohol intake frequency: does not drink Alcohol type: beer Comment: once Q 3-6 month glass of wine Patient Tobacco Use Status: Former Tobacco user Tobacco use type: Cigarette Years Smoked: 30 years e-Cigarette/Vaping Use: Never Used Second Hand Smoke Exposure: Yes Advance Directives Date on File: 06/24/23 service: No Current occupational status: retired 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 Cognitive needs: No Hearing needs: Yes Vision needs: Yes Office Procedures Cardiac Device Check Cardiac Device Check Details: Date of service- 03/27/2025; based on impedance data and physiological variables, there is no evidence of worsening congestive heart failure. [id number] Cardiac Device Interrogation, cardio physiologic monitor Procedure code (CPT) selection complete Assessment & Plan Assessment & Plan (1) ICD (implantable cardioverter-defibrillator) in place: Code(s): Z95.810 - Presence of automatic (implantable) cardiac defibrillator Category: Medical (2) Ischemic cardiomyopathy: Code(s): I25.5 - Ischemic cardiomyopathy Category: Medical Plan x Coding Level of Care Code Procedure Only Diagnoses ICD (implantable cardioverter-defibrillator) in place Z95.810 Ischemic cardiomyopathy I25.5 CPT Codes Cardiac Device Check - Cardiac Device 15: [id number] Cardiac Device Interrogation, cardio physiologic monitor ([id number])
== END ==
PROVIDERS: PCP Internal Medicine; Visit Provider Internal Medicine
DX: I25.5 Ischemic cardiomyopathy (principal); Z95.810 Presence of automatic (implantable) cardiac defibrillator
CPT/HCPCS: 93297

== ENCOUNTER 2025-04-17 14:16 | Outpatient (AMB) | payer MEDICARE, OTHER, SELFPAY ==
--- NOTE | 2025-04-17 14:19 | A.OFFVIS_ITS ---
Intake Visit Reasons: 6m/PSA/Testo Intake Note: Patient is present for 6M Urology Medication:TAMSULOSIN,ALLOPURINOL Antibiotic Allergy:NONE Blood Thinner:ASPIRIN Labs done : 03/17/25 PSA : <0.10, Testosterone 20 Yard Hostler Required: No Accompanied by: Self / Same As Patient Allergies No Known Allergies (No Known Allergies*) Allergy (Verified 04/17/25 14:20) HPI Comments Details: Deacon is a very pleasant male. He is a patient of Dr Pierre. He is seen for the following urologic conditions. - prostate cancer - osteopenia following hormone therapy Six-month follow-up Lab work well-maintained 11/05 P <0.1 T 3, 03/07 P <0.1, 09/08 < 0.1, 03/08 <0.1 T 9, 10/07 <0.1, 04/09 <0.1 20 Continue to review PSA every 6 months at 10 years Prostate cancer high grade, high volume diagnosed February 2021 PSA 18 PSA 10/04 <0.1, 01/04 <0.1 5, 04/06 <0.1 5, 08/07 <0.1 T3 Prostate cancer diagnosed by Dr. 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 4+4=8 (A,C,D,F,G,H,J); 4+5=9 (B, I, K, L) Tumor quantitation: Number cores positive:??11 Total number of cores:??12 Periprostatic fat inv.: Not identified. Seminal vesicle inv.: Not identified. Perineural inv.: Present. LVI: Not identified GnRH initial March 242020 after bicalutamide run in with finasteride - 08/07 completed finasteride Staging 04/05 CT scan no evidence of tru disease 04/05 bone scan no evidence of metastatic disease 10/03 DEXA scan osteopenia from long-term steroid use, 04/07 Osteopenia based on the lowest T-score value of -2.4 in the femoral neck Osteopenia Alendronate weekly [facility] Medical History Pulmonary fibrosis Colonic mass Allergies Dental abscess Dysphagia Elevated PSA Abrasion Bursitis of left shoulder Joint pain Effusion, left knee Prostate nodule Microscopic hematuria Bladder outlet obstruction Pes anserinus bursitis of right knee Effusion, right knee Ventricular tachycardia Ischemic cardiomyopathy Atherosclerotic cardiovascular disease Cardiomyopathy Pacemaker ILD (interstitial lung disease) Pulmonary nodules COPD (chronic obstructive pulmonary disease) Bursitis of right shoulder Medial meniscus tear Osteoarthritis of right knee Surgical History History of carpal tunnel release History of cholecystectomy History of tonsillectomy History of colonoscopy Family History Father No problems noted. Mother No problems noted. Son No problems noted. Social History Household Members: Spouse Housing: House Are you a primary healthcare administration intern to a significant other at home: No Do you presently have visiting nurse or other home services: No Alcohol intake: current Alcohol intake frequency: does not drink Alcohol type: beer Comment: once Q 3-6 month glass of wine Patient Tobacco Use Status: Former Tobacco user Tobacco use type: Cigarette Years Smoked: 30 years e-Cigarette/Vaping Use: Never Used Second Hand Smoke Exposure: Yes Advance Directives Date on File: 06/24/23 service: No Current occupational status: retired 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 Cognitive needs: No Hearing needs: Yes Vision needs: Yes Review of Systems Const Denies chills and Denies fever(s) Card Reports no additional complaints and Denies syncope Resp Denies cough GI Denies abdominal pain and Denies heartburn Reports as per HPI and Denies change in libido Neuro Denies syncope Psych Denies change in libido Endo Denies change in libido Physical Exam Const General: cooperative, healthy appearing, comfortable and no acute distress Orientation/consciousness: patient oriented x3 HEENT Face and sinus: Yes normal facial exam Mouth: moist mucous membranes Neck Neck: Yes normal visual inspection, Yes full ROM and Yes trachea midline Chest Chest palpation & inspection: normal inspection of the chest Resp Effort & Inspection: normal respiratory effort, able to speak in complete sentences and no respiratory distress GI Inspection: Yes normal to inspection Back/Spine/Pelvis Cervical Spine: normal cervical lordosis Thoracic/Lumbar Spine: thoracic and lumbar spine normal to inspection Skin General skin exam: no rashes or lesions noted Neuro General: patient oriented x3, gait normal, tone normal and moves all extremities Extrem General: Yes normal to inspection and Yes capillary refill normal Assessment & Plan Assessment & Plan (1) Prostate cancer: Comment: 04/05 High-grade, moderate volume, localized disease Initial therapy external beam radiation with GnRH [facility] August 2021 Code(s): C61 - Malignant neoplasm of prostate Category: Medical Plan Continue follow-up Orders: Orders Prostate Specific Antigen 6 Months C61 - Malignant neoplasm of prostate Testosterone, Total 6 Months C61 - Malignant neoplasm of prostate Patient Instructions: This note is constructed using voice recognition software. While every effort has been made to ensure accuracy national insurance officer errors may have been included. Imaging studies, laboratory and physical exam results were discussed and rev iewed in detail. No major barriers to patient understanding were identified. An opportunity to ask questions regarding the treatment plan was provided. All questions were answered. The patient expressed understanding and agreement with the above treatment plan. The patient is aware they should contact our office by phone for worsening of their current condition or the appearance of new urologic symptoms. Compliance is encouraged with any medications and followup testing that is ordered. It is a privilege to participate in the urologic care of your patient. If you have any questions or concerns regarding treatment for the above conditions, or other urologic issues, please do not hesitate to contact me. The office telephone contact is [phone]. Sincerely, Dr Husam Guerra MD, [facility] - Urology Compassionate Specialist Care for the Genitourinary System Coding Level of Care Code Est Pt Level 3 (70400) Complex EM visit Add On G2211 Diagnoses Prostate cancer C61
--- OUTSIDE RECORDS SUMMARY | 2025-04-17 14:23 | XMS_ITS | Clinical Summary ---
Author Organization [facility] Address [address] [place] [address] Phone Care Team Providers Care Log Skidder Name Role Phone Royal Pierre MD Primary Care Provider [phone] Allergies No known active allergies Medications alendronate [...] VACCINE (1 - 1-dose 75+ series) 09/28/2015 INFLUENZA VACCINE (#1) 2025 , 04/13/2021, 04/17/2020, Additional history exists COVID-19 VACCINE ( season) 2025 09/13/2020, 08/13/2020 Adult Td,Tdap Booster 06/02/2025 06/02/2015, 005 PNEUMOCOCCAL VACCINES (50+ years) Completed 12/01/2014, 06/14/2006 ZOSTER VACCINES Completed 06/15/2020, 03/16, 04/28/2010 HEPATITIS A VACCINES Aged Out No [...] ENHANCE SUPPLEMENT MEDICARE PART A & B [address] [place] [address] MEDICARE ENHANCE SUPPLEMENT MEDICARE PART A & B [facility] MEDICARE ENHANCE SUPPLEMENT MEDICARE PART A & B [facility] MEDICARE ENHANCE SUPPLEMENT MEDICARE PART A & B [facility] MEDICARE ENHANCE SUPPLEMENT MEDICARE PART A & B MEDICARE ENHANCE SUPPLEMENT MEDICARE PART A & B MEDICARE ENHANCE SUPPLEMENT MEDICARE PART A & B [facility] MEDICARE ENHANCE SUPPLEMENT MEDICARE PART A & [place] [id number] [facility] MEDICARE ENHANCE SUPPLEMENT Advance Directives For more information, please contact: [phone] (9AM - 5PM [facility], Sunday-Sunday) Documents on File Type Date Recorded Patient Sap Data Architect Expl anabelion DORIS 04/27/2021 MOLST Care Teams Log Skidder Relationship Specialty Start Date End Date Royal Pierre MD [address] [place] [address] PCP - General Internal Medicine 04/08/21 Additional Source Comments The information contained in this document represents components of the legal health record. It is not the complete legal health record.[facility]
--- OUTSIDE RECORDS SUMMARY | 2025-04-17 14:23 | XMS_ITS | Encounter Summary ---
Author Organization [facility] Address [address] [place] [address] [place] [address] Phone Care Team Providers Care Manager Product Marketing Name Role Phone Royal Pierre MD Primary Care Provider [phone] Encounter Details Date Type Department Care Team (Late st Contact Info) Description 04/11/2021 Ancillary Orders [facility],Outside Imaging [address] [place] [address] System, Provider Not In, [facility] [address] [address] Social History Tobacco Use Types Packs/Day Years [...] filedocumented in this encounter Care Teams Manager Product Marketing Relationship Specialty Start Date End Date Royal Pierre MD [address] [place] [id number] PCP - General Internal Medicine 04/08/21 documented as of this encounter Additional Source Comments The information contained in this document represents components of the legal health record. It is not the complete legal health record.[facility]
--- OUTSIDE RECORDS SUMMARY | 2025-04-17 14:23 | XMS_ITS | Encounter Summary ---
Author Organization [facility] Address [address] [place] [address] Phone Care Team Providers Care Production Leader Name Role Phone Royal Pierre MD Primary Care Provider [phone] Encounter Details Date Type Department Care Team (Late st Contact Info) Description 04/11/2021 Ancillary Orders [facility],Outside Imaging [address] [place] [address] System, Provider Not In, [facility] [address] [address] Social History Tobacco Use Types Packs/Day Years [...] on filedocumented in this encounter Care Teams Production Leader Relationship Specialty Start Date End Date Royal Pierre MD [address] [place] [address] PCP - General Internal Medicine 04/08/21 documented as of this encounter Additional Source Comments The information contained in this document represents components of the legal health record. It is not the complete legal health record.[facility]
--- OUTSIDE RECORDS SUMMARY | 2025-04-17 14:23 | XMS_ITS | Encounter Summary ---
Author Organization [facility] Address [address] [place] [address] Phone Care Team Providers Care Custodial Engineer Name Role Phone Royal Pierre MD Primary Care Provider [phone] Reason for Visit * Reason Comments Rad Onc discharge Encounter Details Date Type Department Care Team (Late st Contact Info) Description 08/19/2021 Documentation [facility] Rad Onc [address] [place] [address] [address] [place] [address] [place] [address] [email or web address] Rad Onc discharge Social History Tobacco Use [...] on filedocumented in this encounter Care Teams Custodial Engineer Relationship Specialty Start Date End Date Royal Pierre MD [address] [place] [phone] PCP - General Internal Medicine 04/08/21 documented as of this encounter Additional Source Comments The information contained in this document represents components of the legal health record. It is not the complete legal health record.[facility]
== END 2025-04-17 14:46 | disposition home or self-care (01) ==
LOC: HO.HUSH 14:17
PROVIDERS: PCP Internal Medicine; Visit Provider Urology
DX: C61 Malignant neoplasm of prostate (principal)
CPT/HCPCS: 99213; G2211

== ENCOUNTER → 2025-04-17 14:16 | Outpatient (BNVA) | payer MEDICARE, OTHER, SELFPAY | PROVIDERS: PCP Internal Medicine; Visit Provider Urology | DX: C61 Malignant neoplasm of prostate (principal) | CPT/HCPCS: 99212 ==

== ENCOUNTER 2025-04-23 07:59 | Outpatient (REF) | payer MEDICARE, OTHER, SELFPAY ==
--- NOTE | ~2025-04-23 | MM_ITS ---
EXAMINATION: DXA BONE DENSITY AXIAL HISTORY: M81.0 - Age-related osteoporosis without current pathological fracture TECHNIQUE: [employer] Dual energy absorptiometry (DEXA) of the lumbar spine, total left hip, and femoral neck was performed. COMPARISON: Comparison is made with the prior examination dated September 2022 and September 2020. FINDINGS: AP SPINE L1-L2 (excluding L3 and L4): The data of L1-L4 has been changed to exclude the L3 and L4 vertebral bodies, because degenerative changes at these levels may cause overestimation of lumbar spine density. The bone mineral density of the lumbar spine is 1.4 g/cm2, corresponding to a T-score of 1.7, and a Z-score of 2.7. This is indicative of normal bone mineral density. This represents a BMD change of -3.4% compared to the prior exam. The bone mineral density of the left total hip is 0.95 g/cm2, corresponding to a T-score of -1.1, and a Z-score of 0.4. This is indicative of osteopenia. This represents a BMD change of -4.7% compared to the prior exam. The bone mineral density of the left femoral neck is 0.815 g/cm2, corresponding to a T-score of -2, and a Z-score of -0.1. This is indicative of osteopenia. This represents a BMD change of -2.3% compared to the prior exam. FRACTURE RISK: The FRAX index suggests a ten year probability of major osteoporotic fracture of 8.9%, and of hip fracture 3.7%. MM/XR DEXA axial skeleton IMPRESSION: Based on bone mineral density, and according to World Health Organization (WHO) criteria, the diagnosis is consistent with osteopenia. Statistically, 68% of repeat scans fall within 1 SD (+/- 0.010 g/cm2 for AP spine L1-L4) and 1 SD (+/- 0.012 g/cm2 for femur total) FRAX is a trademark of the [employer]'s [employer] Met[employer], a World Health Organization (WHO) Collaborating Center. Electronically signed by: Theresa More MD 04/23/2025 08:43 AM EDT RP
== END 2025-04-23 08:00 | disposition home or self-care (01) ==
LOC: HO.MAMMO 07:59
PROVIDERS: PCP Internal Medicine; Visit Provider Student in an Organized Health Care Education/Training Program
DX: M81.0 Age-related osteoporosis without current pathological fracture (principal); C61 Malignant neoplasm of prostate
CPT/HCPCS: 77080

== ENCOUNTER → 2025-04-23 08:15 | Outpatient (BNV) | payer MEDICARE, OTHER, SELFPAY | PROVIDERS: PCP Internal Medicine; Visit Provider Radiology Diagnostic Radiology | DX: M81.0 Age-related osteoporosis without current pathological fracture (principal) | CPT/HCPCS: 77080 ==

== ENCOUNTER → 2025-05-08 23:59 | Outpatient (BNV) | payer MEDICARE, OTHER, SELFPAY ==
--- NOTE | 2025-05-11 19:20 | A.OFFVIS_ITS ---
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 Allergies No Known Allergies (No Known Allergies*) Allergy (Verified 04/17/25 14:20) [facility] Medical History Pulmonary fibrosis Colonic mass Allergies Dental abscess Dysphagia Elevated PSA Abrasion Bursitis of left shoulder Joint pain Effusion, left knee Prostate nodule Microscopic hematuria Bladder outlet obstruction Pes anserinus bursitis of right knee Effusion, right knee Ventricular tachycardia Ischemic cardiomyopathy Atherosclerotic cardiovascular disease Cardiomyopathy Pacemaker ILD (interstitial lung disease) Pulmonary nodules COPD (chronic obstructive pulmonary disease) Bursitis of right shoulder Medial meniscus tear Osteoarthritis of right knee Surgical History History of carpal tunnel release History of cholecystectomy History of tonsillectomy History of colonoscopy Family History Father No problems noted. Mother No problems noted. Son No problems noted. Social History Household Members: Spouse Housing: House Are you a primary manager intensive care unit to a significant other at home: No Do you presently have visiting nurse or other home services: No Alcohol intake: current Alcohol intake frequency: does not drink Alcohol type: beer Comment: once Q 3-6 month glass of wine Patient Tobacco Use Status: Former Tobacco user Tobacco use type: Cigarette Years Smoked: 30 years e-Cigarette/Vaping Use: Never Used Second Hand Smoke Exposure: Yes Advance Directives Date on File: 06/24/23 service: No Current occupational status: retired 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 Cognitive needs: No Hearing needs: Yes Vision needs: Yes Office Procedures Cardiac Device Check Cardiac Device Check Details: Date of service- 05/08/2025; based on impedance data and physiological variables, there is no evidence of worsening congestive heart failure. [id number] Cardiac Device Interrogation, cardio physiologic monitor Procedure code (CPT) selection complete Assessment & Plan Assessment & Plan (1) ICD (implantable cardioverter-defibrillator) in place: Code(s): Z95.810 - Presence of automatic (implantable) cardiac defibrillator Category: Medical (2) Ischemic cardiomyopathy: Code(s): I25.5 - Ischemic cardiomyopathy Category: Medical Plan x Coding Level of Care Code Procedure Only Diagnoses ICD (implantable cardioverter-defibrillator) in place Z95.810 Ischemic cardiomyopathy I25.5 CPT Codes Cardiac Device Check - Cardiac Device 15: [id number] Cardiac Device Interrogation, cardio physiologic monitor ([id number])
== END ==
PROVIDERS: PCP Internal Medicine; Visit Provider Internal Medicine
DX: I25.5 Ischemic cardiomyopathy (principal); Z95.810 Presence of automatic (implantable) cardiac defibrillator
CPT/HCPCS: 93297

== ENCOUNTER 2025-05-11 12:19 | Outpatient (AMB) | payer MEDICARE, OTHER, SELFPAY ==
[2025-05-11 12:32] VITALS: BP 118/62; PULSE 76; BMI 26.0
--- NOTE | 2025-05-11 12:32 | MHC.OFFVIS ---
Vital Signs 05/11/25 12:32 Height 5 ft 6 in Weight 160 lb 14.999 oz BMI 26.0 BP 118/62 Blood Pressure Location Lt brachial Position Sitting Pulse 76 Pulse Source Pulse Oximeter Intake Visit Reasons: 6 mth fu with device check Allergies No Known Allergies (No Known Allergies*) Allergy (Verified 04/17/25 14:20) Medication List - Last Reconciled 05/11/25 by Joey Flaherty MD alendronate 70 mg PO QWEEK allopurinol 100 mg PO DAILY aspirin 81 mg PO DAILY atorvastatin 40 mg PO BEDTIME cholecalciferol (vitamin D3) 25 mcg (1/2 x 50 mcg (2,000 unit)) PO DAILY ggczzjnhjdf-noujqqzvk-qxecivub 200-62.5-25 mcg (Trelegy Ellipta) 1 ea PO DAILY guaifenesin ER (Mucinex) 1,200 mg PO BID metoprolol succinate ER 25 mg PO DAILY montelukast (Singulair) 10 mg PO BEDTIME 30 days sacubitril-valsartan 24-26 mg (Entresto) 1 tab PO BID 90 days tamsulosin 0.4 mg PO BEDTIME 90 days HPI Comments Details: Deacon returns for follow-up. Previously, patient of [facility] but switched over to us. He has a history of myocardial infarction many years ago with an ischemic cardiomyopathy/large anterior/apical scar. He had a pacemaker due to multiple syncopal episodes. Then it seems that he was noted to have VT episodes on pacemaker and hence required ICD upgrade. No issues in that regard. He was taking amiodarone but not anymore. Otherwise, stroke in 2022. In 2023, stomach upset type symptoms that was followed by a vasovagal episode. However, device interrogation at that time did not show any significant arrhythmias. Telemetry was also unremarkable. Since then, he states he feels good. No new concerns. He walks almost a couple of miles regularly with no issues. No cardiac symptoms. [facility] Medical History Pulmonary fibrosis Colonic mass Allergies Dental abscess Dysphagia Elevated PSA Abrasion Bursitis of left shoulder Joint pain Effusion, left knee Prostate nodule Microscopic hematuria Bladder outlet obstruction Pes anserinus bursitis of right knee Effusion, right knee Ventricular tachycardia Ischemic cardiomyopathy Atherosclerotic cardiovascular disease Cardiomyopathy Pacemaker ILD (interstitial lung disease) Pulmonary nodules COPD (chronic obstructive pulmonary disease) Bursitis of right shoulder Medial meniscus tear Osteoarthritis of right knee Surgical History History of carpal tunnel release History of cholecystectomy History of tonsillectomy History of colonoscopy Family History Father No problems noted. Mother No problems noted. Son No problems noted. Social History Household Members: Spouse Housing: House Are you a primary care transition mgr to a significant other at home: No Do you presently have visiting nurse or other home services: No Alcohol intake: current Alcohol intake frequency: does not drink Alcohol type: beer Comment: once Q 3-6 month glass of wine Patient Tobacco Use Status: Former Tobacco user Tobacco use type: Cigarette Years Smoked: 30 years e-Cigarette/Vaping Use: Never Used Second Hand Smoke Exposure: Yes Advance Directives Date on File: 06/24/23 service: No Current occupational status: retired 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 Cognitive needs: No Hearing needs: Yes Vision needs: Yes Review of Systems Const Denies weakness ENT Denies dizziness Card Denies chest pain, Denies chest pain with activity, Denies syncope, Denies rapid heart rate, Denies pedal edema, Denies edema, Denies leg edema, Denies lightheadedness, Denies palpitations, Denies dyspnea, Denies dyspnea on exertion and Denies orthopnea Resp Denies cough, Denies dyspnea and Denies dyspnea on exertion GI Denies hematochezia and Denies change in stool character Musc Denies abnormal gait, Denies muscle cramps, Denies muscle weakness, Denies numbness, Denies radiating pain into limb and Denies tingling Neuro Denies abnormal gait, Denies dizziness, Denies syncope, Denies numbness, Denies tingling and Denies weakness Endo Denies palpitations Physical Exam Vital Signs: Last Vital Signs Pulse 76 05/11/25 12:32 BP 118/62 05/11/25 12:32 BMI result Body Mass Index 26.0 Const General: comfortable and no acute distress Orientation/consciousness: patient oriented x3 HEENT Other: Unremarkable Head: Yes normal to inspection Neck Neck: Yes normal visual inspection Chest Chest palpation & inspection: normal inspection of the chest Resp Auscultation: clear to auscultation bilaterally Cardio Palpation: normal PMI Heart sounds: S1 normal heart sound present, S2 normal heart sound present, no gallops, no murmurs and no rubs GI Palpation (GI): Soft to palpation Back/Spine/Pelvis Other: unremarkable Skin General skin exam: no rashes or lesions noted Neuro General: patient oriented x3 Extrem General: Yes normal to inspection Psych Mental Status: mental status grossly normal Assessment & Plan Assessment & Plan (1) Atherosclerotic cardiovascular disease: Code(s): I25.10 - Atherosclerotic heart disease of [place] coronary artery without angina pectoris Category: Medical Plan: Had coronary disease in , anterior KS complicated by cardiac arrest. Single-vessel LAD on catheterization then. No PCI performed. Clinically, he does not really have any angina. On aspirin and statins. LDL levels are well controlled. Nuclear stress test from [facility], 01/2023, with report of LAD territory infarct with mild eric-infarct ischemia. (2) Ischemic cardiomyopathy: Code(s): I25.5 - Ischemic cardiomyopathy Category: Medical Plan: Echocardiogram with LVEF 50-55%. Wall motion abnormalities due to underlying coronary disease. Clinically, no heart failure symptoms or signs. On Toprol XL/Entresto. (3) Ventricular tachycardia: Code(s): I47.20 - Ventricular tachycardia, unspecified Category: Medical Plan: Per prior cardiology note, had a long run of VT, self-terminated. s/p ICD. Was on amiodarone but has been stopped. He has findings of marked emphysematous changes with fibrotic changes as well as bronchiectasis on CT scan. No recent issues in this regard. Continue beta-blockers. (4) Presence of implantable cardioverter-defibrillator (ICD): Code(s): Z95.810 - Presence of automatic (implantable) cardiac defibrillator Category: Surgical Plan: Can be followed on remote monitoring. In the past, it seems that he actually had sick sinus syndrome and then had a pacemaker which was then upgraded to ICD based on VT episodes. (5) CVA (cerebral vascular accident): Comment: Middle cerebral artery ischemic Code(s): I63.9 - Cerebral infarction, unspecified Category: Medical Plan: Per CT, acute infarct in the right MCA territory. Atheromatous plaque involving both carotid bifurcations/internal carotid arteries. On aspirin/statins. (6) Vasovagal syncope: Code(s): R55 - Syncope and collapse Category: Medical Plan: Per prior cardiology records, he has had multiple syncopal events, suspect to be from some combination of vasovagal/orthostatic syncope. Recent hospital events noted. However, he is back to normal now. Coding Level of Care Code Est Pt Level 4 (14668) Complex EM visit Add On G2211 Diagnoses Atherosclerotic cardiovascular disease I25.10 Ischemic cardiomyopathy I25.5 Ventricular tachycardia I47.20 Presence of implantable cardioverter-defibrillator (ICD) Z95.810 CVA (cerebral vascular accident) I63.9 Vasovagal syncope R55
--- OUTSIDE RECORDS SUMMARY | 2025-05-11 15:42 | XMS_ITS | Encounter Summary ---
Author Organization Formerly [facility] Address [address] [place] [address] Phone Care Team Providers Care Chemical Weigher Name Role Phone Royal Pierre MD Primary Care Provider [phone] Reason for Visit * Reason Comments Rad Onc discharge Encounter Details Date Type Department Care Team (Late st Contact Info) Description 08/19/2021 Documentation [facility] Rad Onc [address] [place] [address] Guadalupe El [place] [address] [place] [address] [email or web address] Rad Onc discharge Social History Tobacco Use [...] on filedocumented in this encounter Care Teams Chemical Weigher Relationship Specialty Start Date End Date Royal Pierre MD [address] [place] [address] PCP - General Internal Medicine 04/08/21 documented as of this encounter Additional Source Comments The information contained in this document represents components of the legal health record. It is not the complete legal health record.[facility]
--- OUTSIDE RECORDS SUMMARY | 2025-05-11 15:42 | XMS_ITS | Encounter Summary ---
Author Organization [facility] Address [address] [place] [address] [place] [address] Phone Care Team Providers Care Oyster Picker Name Role Phone Royal Pierre MD Primary Care Provider [phone] Encounter Details Date Type Department Care Team (Late st Contact Info) Description 04/11/2021 Ancillary Orders [facility],Outside Imaging [address] [place] [address] System, Provider Not In, [facility] [address] [address] Social History Tobacco Use Types Packs/Day Years [...] on filedocumented in this encounter Care Teams Oyster Picker Relationship Specialty Start Date End Date Royal Pierre MD [address] [place] [address] PCP - General Internal Medicine 04/08/21 documented as of this encounter Additional Source Comments The information contained in this document represents components of the legal health record. It is not the complete legal health record.[facility]
--- OUTSIDE RECORDS SUMMARY | 2025-05-11 15:42 | XMS_ITS | Clinical Summary ---
Author Organization [facility] Address [address] [facility] [address] [place] [address] Phone Care Team Providers Care Service Advocate Contact Name Role Phone Royal Pierre MD Primary Care Provider [phone] Allergies No known active allergies Medications alendronate [...] ENHANCE SUPPLEMENT MEDICARE PART A & [place] [place] [address] MEDICARE ENHANCE SUPPLEMENT MEDICARE PART A & B [facility] MEDICARE ENHANCE SUPPLEMENT MEDICARE PART A & B [facility] MEDICARE ENHANCE SUPPLEMENT MEDICARE PART A & B [facility] MEDICARE ENHANCE SUPPLEMENT MEDICARE PART A & B MEDICARE ENHANCE SUPPLEMENT MEDICARE PART A & B MEDICARE ENHANCE SUPPLEMENT MEDICARE PART A & B [facility] MEDICARE ENHANCE SUPPLEMENT MEDICARE PART A & [place] [id number] [facility] MEDICARE ENHANCE SUPPLEMENT Advance Directives For more information, please contact: [phone] (9AM - 5PM [facility], Sunday-Sunday) Documents on File Type Date Recorded Patient Waffle Machine Operator Expl anabelion DORIS 04/27/2021 MOLST Care Teams Service Advocate Contact Relationship Specialty Start Date End Date Royal Pierre MD [address] [place] [address] PCP - General Internal Medicine 04/08/21 Additional Source Comments The information contained in this document represents components of the legal health record. It is not the complete legal health record.[facility]
--- OUTSIDE RECORDS SUMMARY | 2025-05-11 15:42 | XMS_ITS | Encounter Summary ---
Author Organization [facility] Address [address] [facility] [address] [place] [address] Phone Care Team Providers Care Waste Cotton Cleaner Name Role Phone Royal Pierre MD Primary Care Provider Encounter Details Date Type Department Care Team (Late st Contact Info) Description 04/11/2021 Ancillary Orders [facility],Outside Imaging [address] [place] [address] System, Provider Not In, [facility] [address] [address] Social History Tobacco Use Types Packs/Day Years [...] on filedocumented in this encounter Care Teams Waste Cotton Cleaner Relationship Specialty Start Date End Date Royal Pierre MD [address] [place] [address] PCP - General Internal Medicine 04/08/21 documented as of this encounter Additional Source Comments The information contained in this document represents components of the legal health record. It is not the complete legal health record.[facility]
== END 2025-05-11 12:55 | disposition home or self-care (01) ==
PROVIDERS: PCP Internal Medicine; Visit Provider Internal Medicine
DX: I25.10 Atherosclerotic heart disease of native coronary artery without angina pectoris (principal); I25.5 Ischemic cardiomyopathy; I47.20 Ventricular tachycardia, unspecified; Z95.810 Presence of automatic (implantable) cardiac defibrillator; I63.9 Cerebral infarction, unspecified; R55 Syncope and collapse
CPT/HCPCS: 99214; G2211

== ENCOUNTER → 2025-05-11 12:19 | Outpatient (BNVA) | payer MEDICARE, OTHER, SELFPAY | PROVIDERS: PCP Internal Medicine; Visit Provider Internal Medicine | DX: I25.5 Ischemic cardiomyopathy (principal); I25.10 Atherosclerotic heart disease of native coronary artery without angina pectoris; I47.20 Ventricular tachycardia, unspecified; Z95.810 Presence of automatic (implantable) cardiac defibrillator; R55 Syncope and collapse; Z79.82 Long term (current) use of aspirin; Z87.891 Personal history of nicotine dependence | CPT/HCPCS: 99212 ==

== ENCOUNTER 2025-05-25 13:06 | Outpatient (AMB) | payer MEDICARE, OTHER, SELFPAY ==
[2025-05-25 13:10] VITALS: BP 134/60; PULSE 70; O2SAT 95; BMI 26.5
--- NOTE | 2025-05-25 13:10 | MHC.OFFVIS ---
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 He had a period in time where he developed C diff colitis abdominal pain and complicated by pneumonia. He has since improved. When he was admitted to the [facility] he did undergo a CT scan of the chest ruling out PE but did find a pulmonary nodule in his right lung. But 6 mm in size. Had a repeat CT scan from month later and the nodule was still present. More recently he did have issues with hematuria. The sense improved, but, he did have a CT scan of the abdomen that demonstrated some of the lung windows did not go up to the level of the nodule. The patient has been having some coughing. The cough is usually associated with some mucus. [id number] severity. He has been taking Mucinex with good effect. Otherwise is doing good no weight loss no night sweats no fatigue. 05/03/2023 the patient is here for pulmonary follow-up visit. Overall he is doing better from a respiratory status. He continues uses Trelegy inhaler all those very expensive for him. Last year he went on [facility] to [place] lot of money for the medication. Clinically the patient is doing better so will try to deescalate his respiratory therapy in hopes that he can find something more financially reasonable. He also has a pacemaker and apparently a cardiac arrhythmia that was concerning. The patient is scheduled to undergo a defibrillator at this time. His last CT scan of the chest was back in 2021 demonstrating emphysema and also interstitial lung disease. The pulmonary nodules were not seen. The patient has been complaining of a cough. The cough for the most part is nonproductive in nature. Likely upper airway cough syndrome. Will try using nasal therapy to try to minimize the postnasal drip. His pharynx appeared to be erythematous. There was 1 area that appeared to be little bit more pale. 11/07/2023 the patient is here for pulmonary follow-up visit. He is complaining of worsening cough. For the last about 4 weeks. Moderate severity. At times bringing up phlegm. He has been taking Mucinex with some partial improvement. He also continues on the Trelegy inhaler which appears to be affecting beneficial. He feels that he is positive having some allergies. He has not been using the Singulair. Does have significant nasal congestion and postnasal drip. No recent imaging studies to review. The patient has not had any allergy testing. On examination does have significant postnasal drip likely a component of sinusitis. 05/09/2024 the patient is here for pulmonary evaluation. Since the last time the patient was seen the patient had a fall apparently was a syncopal episode at home. He was in the bathroom and hit his head and was brought to the [facility] ED. He had a full workup there. He did have a CT scan of the chest without any significant trauma. Although again documented significant emphysema in addition to some fibrotic changes. I did personally review the CT scan compared to a CT scan the had back in 2021 in the fibrotic area in the right upper lobe looks full does not around about area but is concerning for the possibility of scar tumor. Therefore, because is not clear exactly what happened with them and because this area of scarring starting to become a little bit more denser than going to repeat the CT scan in 6 months. If the area becomes more concerning a PET scan will be warranted. In the meantime the patient continues on the Trelegy inhaler with good effect. He is also taking antihistamines for allergies. The medications are working well for him. The patient does have a rescue inhaler but he does not have to use it. Therefore this time will plan to repeat the CT scan in 6 months and follow-up at that time. 07/31/2024 the patient is here for a sick visit. Apparently back in June he was sick with COVID. Afterwards she felt sick tired in had this nagging cough. At times productive but for the most part just hacky. He has been taking naps in the afternoon because of the fatigue. He did have a chest x-ray back on the sick. I did look at it and I compared to his x-ray from before. Seems to have some degree of hazy opacity throughout suggesting some degree of pneumonitis. We did go for brief walking oximetry the patient desaturated down to about 92% but did not qualify for oxygen which is reassuring. He did complaint of dyspnea about 4/10. He goes for walks daily with his dog. Based on the x-ray findings will go ahead and treat him for bronchitis. Also treat him with some steroids for the pneumonitis component. Likely that the COVID resulted in some residual airway inflammation and some pneumonitis. But the medicines should help. Will follow-up in couple months. If he is getting any worse or any concerning issues he should call for an earlier assessment. 09/25/2024 the patient is here for a pulmonary follow-up visit. Overall he is back to his baseline. His cough is subsided. He does take Mucinex and he does work well for him. And he can continue taking it. Although can get expensive. He can find the generic brands which are just fine. His x-ray was clear. Does have some interstitial changes are chronic. He is back to walking about 2 miles a day without any significant shortness of breath. Overall he is in a good state. The only issue that he does complain about his the constant drooling from the left side of his mouth because of the stroke. We did talk about medications to potentially drop secretions but at this point I would recommend for him to avoid polypharmacy. If it gets worse she can always call me and I can send him a prescription. For now continue with the Trelegy. She has any issues he can always call otherwise will follow-up sometime in 6-8 months. 05/25/2025 the patient is here for pulmonary follow-up visit. Overall he is doing okay. The patient has been using the Trelegy with very good effect. Continues exercise regularly. He walks his ox regularly. Denies any significant shortness of breath. The patient does have issues with his CAT scan from March 2024. I did personally review. He does have interstitial changes in addition to emphysema. But he has 1 area in the right upper lobe where there is an opacity associated with a cystic area. Therefore will go ahead and repeat his CT scan at this time to follow-up with the abnormal finding. Otherwise the patient is going to continue with the current respiratory therapy and will follow-up. [facility] Medical History Pulmonary fibrosis Colonic mass Allergies Dental abscess Dysphagia Elevated PSA Abrasion Bursitis of left shoulder Joint pain Effusion, left knee Prostate nodule Microscopic hematuria Bladder outlet obstruction Pes anserinus bursitis of right knee Effusion, right knee Ventricular tachycardia Ischemic cardiomyopathy Atherosclerotic cardiovascular disease Cardiomyopathy Pacemaker ILD (interstitial lung disease) Pulmonary nodules COPD (chronic obstructive pulmonary disease) Bursitis of right shoulder Medial meniscus tear Osteoarthritis of right knee Surgical History History of carpal tunnel release History of cholecystectomy History of tonsillectomy History of colonoscopy Family History Father No problems noted. Mother No problems noted. Son No problems noted. Social History Household Members: Spouse Housing: House Are you a primary career guidance technician to a significant other at home: No Do you presently have visiting nurse or other home services: No Alcohol intake: current Alcohol intake frequency: does not drink Alcohol type: beer Comment: once Q 3-6 month glass of wine Patient Tobacco Use Status: Former Tobacco user Tobacco use type: Cigarette Years Smoked: 30 years e-Cigarette/Vaping Use: Never Used Second Hand Smoke Exposure: Yes Advance Directives Date on File: 06/24/23 service: No Current occupational status: retired 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 Cognitive needs: No Hearing needs: Yes Vision needs: Yes Review of Systems Const Denies night sweats ENT Denies change in voice, Denies lip swelling, Denies mouth pain, Reports nasal congestion, Reports nasal discharge, Reports post nasal drip and Denies tongue swelling Card Denies chest pain Resp Denies change in phlegm color, Denies chest congestion and Reports cough GI Denies abdominal pain Reports no additional complaints Musc Reports arthralgias, Reports limited range of motion and Reports stiffness Neuro Denies Neuro-related abnormal movements Psych Denies no additional complaints Rod/Lymph Denies easy bleeding and Denies lymphadenopathy Aller/Immun Denies lip swelling and Denies tongue swelling Physical Exam Vital Signs: Last Vital Signs Pulse 70 05/25/25 13:10 BP 134/60 05/25/25 13:10 Pulse Ox 95 05/25/25 13:10 Oxygen Delivery Method Room Air 05/25/25 13:10 BMI result Body Mass Index 26.5 Const General: alert HEENT General nose exam: Abnormal external nose present and Nasal discharge present Throat: Yes posterior oropharynx abnormal, Yes postnasal drainage and Yes cobblestoning Eyes Pupils: Equal, round and reactive pupils present Neck Neck: Yes normal visual inspection, Yes full ROM and Yes no lymphadenopathy Chest Chest palpation & inspection: normal inspection of the chest Resp Auscultation: diminished lung sounds Cardio Rate: regular rate Rhythm: regular rhythm Heart sounds: S1 normal heart sound present and S2 normal heart sound present GI Palpation (GI): Soft to palpation and nontender Auscultation: normal bowel sounds General: Yes no CVA tenderness Back/Spine/Pelvis Back: no CVA tenderness Skin General skin exam: rashes and/or lesions noted Neuro Cranial nerves: Yes Equal, round and reactive pupils present Results Reviewed Results Reviewed: Assessment & Plan Assessment & Plan (1) COPD (chronic obstructive pulmonary disease): Code(s): J44.9 - Chronic obstructive pulmonary disease, unspecified Category: Medical Qualifiers: COPD type: chronic bronchitis Chronic bronchitis type: simple Qualified Code(s): J41.0 - Simple chronic bronchitis (2) Pulmonary nodules: Code(s): R91.8 - Other nonspecific abnormal finding of lung field Category: Medical (3) Cough: Code(s): R05.9 - Cough, unspecified Category: Medical Qualifiers: Cough type: subacute Qualified Code(s): R05.2 - Subacute cough (4) Allergies: Code(s): T78.40XA - Allergy, unspecified, initial encounter Category: Medical Qualifiers: Encounter type: initial encounter Qualified Code(s): T78.40XA - Allergy, unspecified, initial encounter (5) ILD (interstitial lung disease): Code(s): J84.9 - Interstitial pulmonary disease, unspecified Category: Medical (6) Pulmonary fibrosis: Code(s): J84.10 - Pulmonary fibrosis, unspecified Category: Medical Plan continue Trelegy inhaler Singulair neti bottle with distilled water only fluticasone nasal spray CT chest Follow-up in 6-8 months Orders: Orders CT chest wo IV con Today J84.10 - Pulmonary fibrosis, unspecified, J84.9 - Interstitial pulmonary disease, unspecified, R91.8 - Other nonspecific abnormal finding of lung field Coding Level of Care Code Est Pt Level 4 (93630) Complex EM visit Add On G2211 Diagnoses 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 COPD type: chronic bronchitis Chronic bronchitis type: simple Pulmonary nodules R91.8 Subacute cough R05.2 Cough type: subacute Allergy, initial encounter T78.40XA Encounter type: initial encounter ILD (interstitial lung disease) J84.9 Pulmonary fibrosis J84.10 Time Spent (min) 17
--- OUTSIDE RECORDS SUMMARY | 2025-05-25 15:15 | XMS_ITS | Encounter Summary ---
Author Organization [facility] Address [address] [facility] [address] [place] [address] Phone Care Team Providers Care Reporting Consultant Name Role Phone Royal Pierre MD Primary Care Provider [phone] Encounter Details Date Type Department Care Team (Late st Contact Info) Description 04/11/2021 Ancillary Orders [facility],Outside Imaging [address] [place] [address] System, Provider Not In, [facility] [address] [address] Social History Tobacco Use Types Packs/Day Years [...] on filedocumented in this encounter Care Teams Reporting Consultant Relationship Specialty Start Date End Date Royal Pierre MD [address] [place] [id number] PCP - General Internal Medicine 04/08/21 documented as of this encounter Additional Source Comments The information contained in this document represents components of the legal health record. It is not the complete legal health record.[facility]
--- OUTSIDE RECORDS SUMMARY | 2025-05-25 15:15 | XMS_ITS | Encounter Summary ---
Author Organization [facility] Address [address] [facility] [address] [place] [address] Phone Care Team Providers Care Portrait Studio Photographer Name Role Phone Royal Pierre MD Primary Care Provider [phone] Encounter Details Date Type Department Care Team (Late st Contact Info) Description 04/11/2021 Ancillary Orders [facility],Outside Imaging [address] [place] [address] System, Provider Not In, [facility] [address] [address] Social History Tobacco Use Types Packs/Day Years [...] on filedocumented in this encounter Care Teams Portrait Studio Photographer Relationship Specialty Start Date End Date Royal Pierre MD [address] [place] [address] PCP - General Internal Medicine 04/08/21 documented as of this encounter Additional Source Comments The information contained in this document represents components of the legal health record. It is not the complete legal health record.[facility]
--- OUTSIDE RECORDS SUMMARY | 2025-05-25 15:15 | XMS_ITS | Encounter Summary ---
Author Organization [facility] Address [address] [place] [address] Phone Care Team Providers Care Machine Setter Name Role Phone Royal Pierre MD Primary Care Provider [phone] Reason for Visit * Reason Comments Rad Onc discharge Encounter Details Date Type Department Care Team (Late st Contact Info) Description 08/19/2021 Documentation [facility] Rad Onc [address] [place] [address] Guadalupe El [place] [address] [place] [address] [email or web address] Rad Onc discharge Social History Tobacco Use [...] filedocumented in this encounter Care Teams Machine Setter Relationship Specialty Start Date End Date Royal Pierre MD [address] [place] [address] PCP - General Internal Medicine 04/08/21 documented as of this encounter Additional Source Comments The information contained in this document represents components of the legal health record. It is not the complete legal health record.[facility]
--- OUTSIDE RECORDS SUMMARY | 2025-05-25 15:16 | XMS_ITS | Clinical Summary ---
Author Organization [facility] Address [address] [facility] [address] [place] [address] Phone Care Team Providers Care Escort Service Attendant Name Role Phone Royal Pierre MD Primary Care Provider [phone] Allergies No known active allergies Medications alendronate [...] on patient's age to complete this topic IPV VACCINES Aged Out No longer eligi ble [...] ENHANCE SUPPLEMENT MEDICARE PART A & B [facility] MEDICARE ENHANCE SUPPLEMENT MEDICARE PART A & B [facility] MEDICARE ENHANCE SUPPLEMENT MEDICARE PART A & B [facility] MEDICARE ENHANCE SUPPLEMENT MEDICARE PART A & B MEDICARE ENHANCE SUPPLEMENT MEDICARE PART A & [place] [address] MEDICARE ENHANCE SUPPLEMENT MEDICARE PART A & B [facility] MEDIC[facility] ENHANCE SUPPLEMENT MEDICARE PART A & B [facility] MEDICARE ENHANCE SUPPLEMENT Advance Directives For more information, please contact: [phone] (9AM - 5PM [facility], Sunday-Sunday) Documents on File Type Date Recorded Patient Regional Guide Expl anation MOLST 04/27/2021 MOLST Care Teams Escort Service Attendant Relationship Specialty Start Date End Date Royal Pierre MD [address] [place] [address] PCP - General Internal Medicine 04/08/21 Additional Source Comments The information contained in this document represents components of the legal health record. It is not the complete legal health record.[facility]
== END 2025-05-25 13:42 | disposition home or self-care (01) ==
LOC: HO.HPS 13:06
PROVIDERS: PCP Internal Medicine; Visit Provider Hospitalist
DX: J41.0 Simple chronic bronchitis (principal); R91.8 Other nonspecific abnormal finding of lung field; R05.2 Subacute cough; T78.40XA Allergy, unspecified, initial encounter; J84.9 Interstitial pulmonary disease, unspecified; J84.10 Pulmonary fibrosis, unspecified
CPT/HCPCS: 99214; G2211

== ENCOUNTER → 2025-05-25 13:06 | Outpatient (BNVA) | payer MEDICARE, OTHER, SELFPAY | PROVIDERS: PCP Internal Medicine; Visit Provider Hospitalist | DX: J41.0 Simple chronic bronchitis (principal); R91.8 Other nonspecific abnormal finding of lung field; Z91.09 Other allergy status, other than to drugs and biological substances; J84.9 Interstitial pulmonary disease, unspecified; J84.10 Pulmonary fibrosis, unspecified | CPT/HCPCS: 99212 ==

== ENCOUNTER 2025-05-26 09:54 | Outpatient (AMB) | payer MEDICARE, OTHER, SELFPAY ==
--- NOTE | 2025-05-26 09:55 | AM.OFFVISNUR ---
Intake Visit Reasons: Flu Shot Allergies No Known Allergies (No Known Allergies*) Allergy (Verified 05/25/25 13:14) Office Procedures Flu Questionnaire Does the patient have a severe egg allergy?: No Does the patient have severe life threatening allergies?: No Does the patient have a fever or illness today?: No Has the patient ever had Guillain-[place] Syndrome?: No Has the patient ever had any past reaction to a flu shot?: No Immunizations Fluarix [id number] (PF) 45 mcg (15 mcg x 3)/0.5 mL IM syringe Performing Provider: Leila Merida MD [place] [facility] [place] [facility] Administered by: Grace Delvalle RN on 05/26/25 10:04 Dose Route Admin Location Dispensed Lot Number Expiration Date [facility] Diamond Cleaver 0.5 mL IM Left Deltoid 0.5 mL [id number] 01/12/26 [id number] Motally VIS Given Date VIS Provided VIS Publication Date 05/26/25 Single Vaccine 24 Eligibility Eligibility Date Funding Source Not [facility] Eligible 05/26/25 Private Assessment & Plan Assessment & Plan Orders: Orders Influenza [id number] Immunization Today Z23 - Encounter for immunization Coding
--- OUTSIDE RECORDS SUMMARY | 2025-05-26 11:14 | XMS_ITS | Encounter Summary ---
Author Organization [facility] Address [address] [facility] [address] [place] [address] Phone Care Team Providers Care Tack Coverer Name Role Phone Royal Pierre MD Primary Care Provider [phone] Encounter Details Date Type Department Care Team (Late st Contact Info) Description 04/11/2021 Ancillary Orders [facility],Outside Imaging [address] [place] [address] System, Provider Not In, [facility] [address] [address] Social History Tobacco Use Types Packs/Day Years [...] on filedocumented in this encounter Care Teams Tack Coverer Relationship Specialty Start Date End Date Royal Pierre MD [address] [place] [address] PCP - General Internal Medicine 04/08/21 documented as of this encounter Additional Source Comments The information contained in this document represents components of the legal health record. It is not the complete legal health record.[facility]
--- OUTSIDE RECORDS SUMMARY | 2025-05-26 11:14 | XMS_ITS | Encounter Summary ---
Author Organization [facility] Address [address] [place] [address] Phone Care Team Providers Care Medical Translator Name Role Phone Royal Pierre MD Primary Care Provider [phone] Reason for Visit * Reason Comments Rad Onc discharge Encounter Details Date Type Department Care Team (Late st Contact Info) Description 08/19/2021 Documentation [facility] [place] [facility] Rad Onc [address] [place] [address] Guadalupe El [place] [address] [place] [address] [email or web address] Rad Onc discharge Social History Tobacco Use [...] filedocumented in this encounter Care Teams Medical Translator Relationship Specialty Start Date End Date Royal Pierre MD [address] [place] [address] PCP - General Internal Medicine 04/08/21 documented as of this encounter Additional Source Comments The information contained in this document represents components of the legal health record. It is not the complete legal health record.[facility]
--- OUTSIDE RECORDS SUMMARY | 2025-05-26 11:14 | XMS_ITS | Encounter Summary ---
Author Organization [facility] Address [address] [facility] [address] [place] [address] Phone Care Team Providers Care Harpsichord Maker Name Role Phone Royal Pierre MD Primary Care Provider [phone] Encounter Details Date Type Department Care Team (Late st Contact Info) Description 04/11/2021 Ancillary Orders [facility],Outside Imaging [address] [place] [address] System, Provider Not In, [facility] [address] [address] Social History Tobacco Use Types Packs/Day Years [...] on filedocumented in this encounter Care Teams Harpsichord Maker Relationship Specialty Start Date End Date Royal Pierre MD [address] [place] [address] PCP - General Internal Medicine 04/08/21 documented as of this encounter Additional Source Comments The information contained in this document represents components of the legal health record. It is not the complete legal health record.[facility]
--- OUTSIDE RECORDS SUMMARY | 2025-05-26 11:14 | XMS_ITS | Clinical Summary ---
Author Organization [facility] Address [address] [facility] [address] [place] [address] Phone Care Team Providers Care Garment Finisher Name Role Phone Royal Pierre MD Primary Care Provider [phone] Allergies No known active allergies Medications alendronate [...] ENHANCE SUPPLEMENT MEDICARE PART A & B [facility] MEDICARE ENHANCE SUPPLEMENT MEDICARE PART A & B [facility] MEDICARE ENHANCE SUPPLEMENT MEDICARE PART A & B [facility] MEDICARE ENHANCE SUPPLEMENT [facility] Address: [address] [place] [address] MEDICARE PART A & B MEDICARE ENHANCE SUPPLEMENT [facility] Address: [facility] [id number] [place] [address] MEDICARE PART A & [place] [address] MEDICARE ENHANCE SUPPLEMENT [facility] Address: [address] [place] [address] MEDICARE PART A & B [facility] MEDICARE ENHANCE SUPPLEMENT [facility] Address: [address] [place] [address] MEDICARE PART A & B [facility] MEDICARE ENHANCE SUPPLEMENT Advance Directives For more information, please contact: [phone] (9AM - 5PM [facility], Sunday-Sunday) Documents on File Type Date Recorded Patient Farm Product Purchaser Expl anation MOLST 04/27/2021 MOLST Care Teams Garment Finisher Relationship Specialty Start Date End Date Royal Pierre MD [address] [place] [address] PCP - General Internal Medicine 04/08/21 Additional Source Comments The information contained in this document represents components of the legal health record. It is not the complete legal health record.[facility]
== END 2025-05-26 10:06 | disposition home or self-care (01) ==
PROVIDERS: PCP Internal Medicine; Visit Provider Internal Medicine
DX: Z23 Encounter for immunization (principal)

== ENCOUNTER → 2025-05-26 09:54 | Outpatient (BNVA) | payer MEDICARE, OTHER, SELFPAY | PROVIDERS: PCP Internal Medicine; Visit Provider Internal Medicine | DX: Z23 Encounter for immunization (principal) | CPT/HCPCS: 90471; 90656 ==

== ENCOUNTER 2025-06-18 14:08 | Outpatient (AMB) | payer MEDICARE, OTHER, SELFPAY ==
--- NOTE | 2025-06-18 14:42 | A.OFFVIS_ITS ---
Vital Signs 06/18/25 14:48 Height 5 ft 6 in Weight 163 lb 12.855 oz BMI 26.4 BP 132/70 Blood Pressure Location Lt brachial Position Sitting Pulse 73 Pulse Source Pulse Oximeter Pulse Oximetry (%) 96 Oxygen Delivery Method Room Air Intake Visit Reasons: PMR Intake Note: Patient presents for PMR follow up. Bark Tanner Required: No Accompanied by: Self / Same As Patient Allergies No Known Allergies (No Known Allergies*) Allergy (Verified 06/18/25 14:46) Medication List - Last Reconciled 06/23/25 by Yue Delvalle MD allopurinol 100 mg PO DAILY aspirin 81 mg PO DAILY atorvastatin 40 mg PO BEDTIME cholecalciferol (vitamin D3) 25 mcg (1/2 x 50 mcg (2,000 unit)) PO DAILY fwevbmeqwwv-bwrdqdjpn-trybjxzq 200-62.5-25 mcg (Trelegy Ellipta) 1 ea PO DAILY guaifenesin ER (Mucinex) 1,200 mg PO BID metoprolol succinate ER 25 mg PO DAILY montelukast (Singulair) 10 mg PO BEDTIME 30 days sacubitril-valsartan 24-26 mg (Entresto) 1 tab PO BID 90 days tamsulosin 0.4 mg PO BEDTIME 90 days HPI Comments Details: Patient is an 84-year-old male with COPD, hyperlipidemia, hypertension c/b CVA, ischemic cardiomyopathy c/b heart failure with reduced ejection fraction, pulmonary fibrosis, PMR, osteopenia, polyarticular osteoarthritis here today for follow up Interval History: Patient last seen 06/18/[address] Portillo - Not on any DMARDs - On Alendronate 70mg weekly - Off prednisone for approximately since approximately July 2021. - He denies any return of PMR symptoms. - States that he feels great overall, apart from multiple dental infections recently that required multiple teeth removal a few days ago. - Compliant with alendronate. Well tolerated. Today - Not on any DMARDs - On Alendronate 70mg weekly - Off prednisone for approximately since approximately July 2021. - No return of PMR symptoms Rheumatologic History: Initial presentation of bilateral shoulder pain.? Serology with markedly elevated ESR and CRP.? Started on 10 mg prednisone daily in September 2020 with dramatic response in his symptoms.? He has now successfully tapered off prednisone since 07/2021. No recurrence of PMR symptoms. Current Rheumatology Medication(s): Alendronate 70mg weekly [facility] Medical History Pulmonary fibrosis Colonic mass Allergies Dental abscess Dysphagia Elevated PSA Abrasion Bursitis of left shoulder Joint pain Effusion, left knee Prostate nodule Microscopic hematuria Bladder outlet obstruction Pes anserinus bursitis of right knee Effusion, right knee Ventricular tachycardia Ischemic cardiomyopathy Atherosclerotic cardiovascular disease Cardiomyopathy Pacemaker ILD (interstitial lung disease) Pulmonary nodules COPD (chronic obstructive pulmonary disease) Bursitis of right shoulder Medial meniscus tear Osteoarthritis of right knee Surgical History History of carpal tunnel release History of cholecystectomy History of tonsillectomy History of colonoscopy Family History Father No problems noted. Mother No problems noted. Son No problems noted. Social History Household Members: Spouse Housing: House Are you a primary childcare attendant to a significant other at home: No Do you presently have visiting nurse or other home services: No Alcohol intake: current Alcohol intake frequency: does not drink Alcohol type: beer Comment: once Q 3-6 month glass of wine Patient Tobacco Use Status: Former Tobacco user Tobacco use type: Cigarette Years Smoked: 30 years e-Cigarette/Vaping Use: Never Used Second Hand Smoke Exposure: Yes Advance Directives Date on File: 06/24/23 service: No Current occupational status: retired 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 Cognitive needs: No Hearing needs: Yes Vision needs: Yes Review of Systems Narrative Review of Systems Constitutional: Denies fever, chills, weight loss ENT: Denies vision changes, eye pain or eye redness, dental caries, dry mouth GI: Denies nausea, vomiting, diarrhea, abdominal pain, change in BM Pulm: Denies SOB, REZA, hemoptysis, wheezing Cards: Denies chest pain, palpitations Skin: Denies Raynaud's, rash, nail changes, photosensitivity, AUTO DAMAGE APPRAISER: Denies headaches, weakness, paresthesias, recurrent falls MSK: as per HPI All other systems reviewed and are unremarkable except noted above Physical Exam Exam Exam: Vital signs reviewed Physical Examination CONSTITUITIONAL Patient alert and cooperative. Well appearing and in no apparent painful distress MSK Hands * Right Hand: Able to make a fist. No swelling or tenderness to palpation of the MCPs, PIPs or DIPs. * Left Hand: Able to make a fist. No swelling or tenderness to palpation of the MCPs, PIPs or DIPs. * Herbedens nodes noted bilaterally Wrists * Right Wrist: Full ROM to flexion and extension. No swelling or TTP * Left Wrist: Full ROM to flexion and extension. No swelling or TTP Elbows * Right Elbow: Full ROM. No swelling or TTP. No TTP of the medial epicondyle. No TTP of the lateral epicondyle * Left Elbow: Full ROM. No swelling or TTP. No TTP of the medial epicondyle. No TTP of the lateral epicondyle Shoulders * Right shoulder: No swelling noted. No TTP of the AC joint. No TTP of the subacromial bursa. No TTP of the posterior shoulder * Left shoulder: No swelling noted. No TTP of the AC joint. No TTP of the subacromial bursa. No TTP of the posterior shoulder * Decreased ROM bilaterally Knees * Right knee: No swelling noted. No TTP of the knee joint line. No TTP of pes anserine bursa * Left knee: No swelling noted. No TTP of the knee joint line. No TTP of pes anserine bursa. * Crepitations felt bilaterally Ankles * Right ankle: Good ankle dorsiflexion and plantar flexion. No swelling. No TTP of the ankle joint * Left ankle: Good ankle dorsiflexion and plantar flexion. No swelling. No TTP of the ankle joint Feet * Right foot: Negative squeeze test * Left foot: Negative squeeze test Tender points? * No tenderness to palpation of the bilateral trapezius, supraspinatus, anterior costochondral junctions, bilateral suboccipital muscle insertions SKIN No rashes Vital Signs: Last Vital Signs Pulse 73 06/18/25 14:48 BP 132/70 06/18/25 14:48 Pulse Ox 96 06/18/25 14:48 Oxygen Delivery Method Room Air 06/18/25 14:48 BMI result Body Mass Index 26.4 Results Reviewed Results Reviewed: Laboratory Tests 03/17/25 08:43 WBC 7.2 RBC 4.05 L Hgb 14.0 Hct 38.8 L Plt Count 206 Sodium 134 L Potassium 4.3 Chloride 101 Carbon Dioxide 27 BUN 14 Creatinine 0.86 AST 25 ALT 17 Laboratory Tests 04/23/18 09/15/20 11:38 14:55 Rheumatoid Factor < 15.0 Cycl Citrul Peptide IgG 27 H MIKE Screen Negative DEXA 04/2025 FINDINGS: AP SPINE L1-L2 (excluding L3 and L4): The data of L1-L4 has been changed to exclude the L3 and L4 vertebral bodies, because degenerative changes at these levels may cause overestimation of lumbar spine density. The bone mineral density of the lumbar spine is 1.4 g/cm2, corresponding to a T-score of 1.7, and a Z-score of 2.7. This is indicative of normal bone mineral density. This represents a BMD change of -3.4% compared to the prior exam. The bone mineral density of the left total hip is 0.95 g/cm2, corresponding to a T-score of -1.1, and a Z-score of 0.4. This is indicative of osteopenia. This represents a BMD change of -4.7% compared to the prior exam. The bone mineral density of the left femoral neck is 0.815 g/cm2, corresponding to a T-score of -2, and a Z-score of -0.1. This is indicative of osteopenia. This represents a BMD change of -2.3% compared to the prior exam. FRACTURE RISK: The FRAX index suggests a ten year probability of major osteoporotic fracture of 8.9%, and of hip fracture 3.7%. Assessment & Plan Assessment & Plan (1) Polymyalgia rheumatica: Comment: Initial presentation of bilateral shoulder pain.? Serology with markedly elevated ESR and CRP.? Started on 10 mg prednisone daily in September 2020 with dramatic response in his symptoms.? He has now successfully tapered off prednisone since 07/2021. No recurrence of PMR symptoms. Code(s): M35.3 - Polymyalgia rheumatica Category: Medical Plan: #PMR Patient is an 84-year-old male with history of PMR here today for follow up. No evidence of return of symptoms. Continue to monitor off steroids and DMARDs Plan - Stable without return of symptoms - RTC 1 year (2) Osteopenia: Comment: Long-term use of steroids. Bone density 09/2020 with osteopenia, but high FRAX score. Started on alendronate September 2020- present Code(s): M85.80 - Other specified disorders of bone density and structure, unspecified site Category: Medical Qualifiers: Osteopenia location: multiple sites Qualified Code(s): M85.89 - Other specified disorders of bone density and structure, multiple sites Plan: #Osteoporosis Worsening ostero Plan - (3) Polyarticular osteoarthritis: Code(s): M15.9 - Polyosteoarthritis, unspecified Plan I spent 25 minutes reviewing the record and labs, taking a history, examining the patient, discussing the treatment plan, ordering diagnostic work up and documenting in the medical record Coding Level of Care Code Est Pt Level 3 (58642) Complex visit Add On G2211 Diagnoses Polymyalgia rheumatica M35.3 Osteopenia of multiple sites M85.89 Osteopenia location: multiple sites Polyarticular osteoarthritis M15.9
[2025-06-18 14:48] VITALS: BP 132/70; PULSE 73; O2SAT 96; BMI 26.4
--- OUTSIDE RECORDS SUMMARY | 2025-06-18 19:41 | XMS_ITS | Encounter Summary ---
Author Organization [facility] Address [address] [place] [address] Phone Care Team Providers Care Buffing Line Set Up Worker Name Role Phone Royal Pierre MD Primary Care Provider [phone] Reason for Visit * Reason Comments Rad Onc discharge Encounter Details Date Type Department Care Team (Late st Contact Info) Description 08/19/2021 Documentation [facility] Rad Onc [address] [place] [address] Guadalupe El [place] [address] [place] [address] [email or web address] Rad Onc discharge Social History Tobacco Use [...] on filedocumented in this encounter Care Teams Buffing Line Set Up Worker Relationship Specialty Start Date End Date Royal Pierre MD [address] [place] [address] PCP - General Internal Medicine 04/08/21 documented as of this encounter Additional Source Comments The information contained in this document represents components of the legal health record. It is not the complete legal health record.[facility]
--- OUTSIDE RECORDS SUMMARY | 2025-06-18 19:41 | XMS_ITS | Encounter Summary ---
Author Organization [facility] Address [address] [facility] [address] [place] [address] Phone Care Team Providers Care Geophysical Computer Name Role Phone Royal Pierre MD Primary Care Provider [phone] Encounter Details Date Type Department Care Team (Late st Contact Info) Description 04/11/2021 Ancillary Orders [facility],Outside Imaging [address] [place] [address] System, Provider Not In, [facility] [address] [address] Social History Tobacco Use Types Packs/Day Years [...] on filedocumented in this encounter Care Teams Geophysical Computer Relationship Specialty Start Date End Date Royal Pierre MD [address] [place] [address] PCP - General Internal Medicine 04/08/21 documented as of this encounter Additional Source Comments The information contained in this document represents components of the legal health record. It is not the complete legal health record.[facility]
--- OUTSIDE RECORDS SUMMARY | 2025-06-18 19:41 | XMS_ITS | Encounter Summary ---
Author Organization [facility] Address [address] [facility] [address] [place] [address] Phone Care Team Providers Care Neck Band Operator Name Role Phone Royal Pierre MD Primary Care Provider [phone] Encounter Details Date Type Department Care Team (Late st Contact Info) Description 04/11/2021 Ancillary Orders [facility],Outside Imaging [address] [place] [address] System, Provider Not In, [facility] [address] [address] Social History Tobacco Use Types Packs/Day Years [...] on filedocumented in this encounter Care Teams Neck Band Operator Relationship Specialty Start Date End Date Royal Pierre MD [address] [place] [address] PCP - General Internal Medicine 04/08/21 documented as of this encounter Additional Source Comments The information contained in this document represents components of the legal health record. It is not the complete legal health record.[facility]
--- OUTSIDE RECORDS SUMMARY | 2025-06-18 19:42 | XMS_ITS | Clinical Summary ---
Author Organization [facility] Address [address] [facility] [facility] [address] [place] [address] Phone Care Team Providers Care Metal Patternmaker Apprentice Name Role Phone Royal Pierre MD Primary Care Provider [phone] Allergies No known active allergies Medications alendronate [...] ENHANCE SUPPLEMENT MEDICARE PART A & [place] [address] [place] [address] MEDICARE ENHANCE SUPPLEMENT MEDICARE PART A & B [facility] MEDICARE ENHANCE SUPPLEMENT MEDICARE PART A & B [facility] MEDICARE ENHANCE SUPPLEMENT MEDICARE PART A & B [facility] MEDICARE ENHANCE SUPPLEMENT MEDICARE PART A & B MEDICARE ENHANCE SUPPLEMENT MEDICARE PART A & B MEDICARE ENHANCE SUPPLEMENT MEDICARE PART A & B [facility] MEDICARE ENHANCE SUPPLEMENT [place]IC[place] PART [place] [id number] [facility] MEDICARE ENHANCE SUPPLEMENT Advance Directives For more information, please contact: [phone] (9AM - 5PM [facility], Sunday-Sunday) Documents on File Type Date Recorded Patient Health Education Specialist Expl anabelion DORIS 04/27/2021 MOLST Care Teams Metal Patternmaker Apprentice Relationship Specialty Start Date End Date Royal Pierre MD [address] [place] [address] PCP - General Internal Medicine 04/08/21 Additional Source Comments The information contained in this document represents components of the legal health record. It is not the complete legal health record.[facility]
== END 2025-06-18 15:18 | disposition home or self-care (01) ==
LOC: HO.RHES 14:08
PROVIDERS: PCP Internal Medicine; Visit Provider Student in an Organized Health Care Education/Training Program
DX: M35.3 Polymyalgia rheumatica (principal); M85.89 Other specified disorders of bone density and structure, multiple sites; M15.9 Polyosteoarthritis, unspecified
CPT/HCPCS: 99213; G2211

== ENCOUNTER → 2025-06-18 14:08 | Outpatient (BNVA) | payer MEDICARE, OTHER, SELFPAY | PROVIDERS: PCP Internal Medicine; Visit Provider Student in an Organized Health Care Education/Training Program | DX: M35.3 Polymyalgia rheumatica (principal); M85.89 Other specified disorders of bone density and structure, multiple sites; M15.9 Polyosteoarthritis, unspecified; Z79.52 Long term (current) use of systemic steroids | CPT/HCPCS: 99212 ==

== ENCOUNTER → 2025-07-06 12:21 | Outpatient (BNV) | payer MEDICARE, OTHER, SELFPAY | PROVIDERS: PCP Internal Medicine; Visit Provider Internal Medicine | DX: Z45.018 Encounter for adjustment and management of other part of cardiac pacemaker (principal) | CPT/HCPCS: 93297 ==

== ENCOUNTER → 2025-07-06 12:22 | Outpatient (BNV) | payer MEDICARE, OTHER, SELFPAY | PROVIDERS: PCP Internal Medicine; Visit Provider Internal Medicine | DX: Z95.810 Presence of automatic (implantable) cardiac defibrillator (principal) | CPT/HCPCS: 93295 ==